=== PATIENT | male | born 1950 | race Caucasian/White ===

== ENCOUNTER 2020-07-14 18:24 | Inpatient (IN) | payer MEDICARE, SELFPAY ==
[2020-07-14 18:35] VITALS: BP 154/89; PULSE 97; RESP 18; TEMP 36.6; O2SAT 97; BMI 28.5
[2020-07-14 19:24] VITALS: BP 132/82; PULSE 92; RESP 16; TEMP 37.4; O2SAT 97
--- NOTE | 2020-07-14 19:25 | ED.ABDPAIN ---
HPI - Abdominal Pain General Chief Complaint: Abdominal Pain Stated Complaint: abd pain Time Seen by Provider: 07/14/20 22:11 Source: patient Mode of arrival: ambulatory Limitations: no limitations History of Present Illness HPI narrative: 60-year-old male with past medical history of AFib presents with 1 day of diffuse abdominal pain, nausea, dry heaving, inability to pass flatus or stools. He is diffusely tender and in moderate distress. He is doing his best to answer questions and answering in short polite answers. He does report chills, but denies chest pain pressure palpitations, edema, lightheadedness, weakness. MD elicited complaint: abdominal pain and flank pain Pertinent past history: none Onset (ago): day(s) (1) Pain Consistency: constant Location: diffuse Severity: severe Pain scale (0-10): 10 Quality: aching and fullness Radiation: L flank and R flank Exacerbating factors: eating, vomiting and movement Relieving factors: nothing Associated symptoms: nausea, vomiting, chills and constipation Related Data Home Medications Medication Instructions Recorded Confirmed diltiazem HCl [Cartia XT] 120 mg PO 07/14/20 flecainide 50 mg PO 07/14/20 Allergies Allergy/AdvReac Type Severity Reaction Status Date / Time No Known Allergies Allergy Unverified 05/01/20 17:32 [No Known Allergies*] Review of Systems Review of Systems Constitutional: No Weight loss, positive Fever, positive Chills, No Night Sweats, positive Fatigue, No Malaise ENT/Mouth: No Hearing loss, No Ear Pain, No Nasal Congestion, No Sinus Pain, No Hoarseness, No sore throat, No Rhinorrhea, No Swallowing Difficulty Eyes: No Eye Pain, No Swelling, No Redness, No Foreign Body, No Discharge, No Vision Changes Cardiovascular: No Chest Pain, No SOB, No Dyspnea on Exertion, No Orthopnea, No Edema, No Palpitations Respiratory: No Cough, No Sputum, No Wheezing, No Smoke Exposure, No Dyspnea Gastrointestinal: Positive Nausea, Positive Vomiting, no Diarrhea, positive abdominal Pain, No Hematochezia, No Melena Genitourinary: no irregular bleeding, No Dysuria, No Urinary Frequency, No Hematuria, No Urinary Incontinence, No Urgency, No Flank Pain, No Urinary Flow Changes, No Hesitancy Musculoskeletal: No joint pain, No Myalgias, No Joint Swelling Skin: No Skin Lesions, No rash Neuro: No Weakness, No Numbness, No Paresthesias, No Loss of Consciousness, No Dizziness, No Headache Psych: No Anxiety/Panic, No Depression, No SI/HI/AH/VH, No Social Issues Heme/Lymph: No Bruising, No Bleeding,No Lymphadenopathy Endocrine: No Polyuria, No Polydipsia, No Temperature Intolerance Yes all other systems are reviewed and are negative Physical Exam Vital Signs: Vital Signs: Last Vital Signs Temp 98.3 F 07/14/20 21:05 Pulse 105 H 07/15/20 00:05 Resp 16 07/15/20 00:05 BP 86/53 L 07/15/20 00:05 Pulse Ox 92 07/15/20 00:05 Body Mass Index 28.5 Appearance: Alert. Oriented X3. moderate distress. Head: Normal external exam. Normocephalic. Atraumatic. No Neely signs noted. No raccoon eyes noted Eyes: PERRLA. EOMI. Conjunctiva and sclera normal. Eyelids normal. ENT: TM's Normal. Pharynx normal. Uvula midline. Moist mucous membranes. No trismus noted. No drooling noted. No muffled voice noted. Neck: Normal inspection. Neck supple. No adenopathy. Thyroid Normal. No meningeal signs. No neck mass noted. CVS: Normal heart rate and rhythm. Heart sound normal. No murmurs noted. Pulses equal to all extremities. Respiratory: No respiratory distress. Painless inspiration. Breath sounds normal. No wheezes/rales/rhonchi noted. Chest nontender. No accessory muscle usage noted or decreased air movement noted. Abdomen: Soft and diffusely tender with guarding and rebound. Bowel sounds normal in all 4 quadrants. No distention noted. No visible injury noted. Back: positive bilateral CVA tenderness. Full range of motion noted. Skin: Skin warm and dry. Normal skin color. Normal skin turgor. No rashes/lesions/lacerations noted. Extremities: No lower extremity edema. Extremities exhibit normal range of motion. Extremities nontender. Neuro: cranial nerves 2-12 intact, no focal neural deficits, strength 5/5 to all extremities, No motor deficit. No sensory deficit. Reflexes normal. Course Course Course Narrative: 70-year-old male with past medical history of AFib on diltiazem and flecainide presents with 1 day of abdominal pain and dry heaving. On presentation his skin is warm to touch, temp at bedside is 100, tachycardic at 97. We will initiate sepsis protocol, his abdominal exam is highly suspicious for diverticulitis or acute abdomen, he does have bilateral CVA tenderness. we did start Zosyn. White count 15, Lactic acid 1.9, troponin 6.5, CT scan positive for hydronephrosis, obstructing 3 mm stone at the left UVJ. Discussion with Dr. Jeffries at 10:14 p.m.. Plan is to admit to hospitalist and Dr Jeffries will see him in the morning. Discussion with Dr. Bandar Aly, patient will be admitted with UTI, hydronephrosis, and sepsis. MDM - Abdominal Pain Differential Diagnosis Differential diagnosis: Likely abdominal pain, aortic dissection, acute appendicitis, bowel perforation, calculus of kidney, diverticulitis, mesenteric ischemia and small bowel obstruction Medical Records Attestation: I reviewed the patient's medical records. Lab Data Attestation: I reviewed the patient's lab results. Result diagrams: 07/14/20 19:49 Labs: Lab Results 07/14/20 07/14/20 07/14/20 Range/Units 19:48 19:48 19:49 WBC 15.2 H (4.8-10.8) X10*3/uL RBC 4.54 L (4.60-5.80) X10*6/uL Hgb 14.3 (14.0-18.0) g/dl Hct 41.9 L (42-52) % MCV 92.3 (80-98) fL MCH 31.5 (27.0-33.0) pg MCHC 34.1 (31.0-36.0) g/dl RDW 14.6 (11.0-16.0) % Plt Count 277 (160-400) X10*3/uL MPV 9.8 (9.4-12.4) fL Immature Gran % (Auto) 0.3 (0.0-0.4) % Neut % (Auto) 90.4 H (45-73) % Lymph % (Auto) 6.2 L (20-40) % [place] % (Auto) 3.0 (2-11) % Eos % (Auto) 0.0 (0-4) % Baso % (Auto) 0.1 (0-2) % Lymph # (Auto) 0.9 L (1.2-4.9) X10*3/uL [place] # (Auto) 0.5 (0.1-1.2) X10*3/uL Eos # (Auto) 0.0 (0.0-0.4) X10*3/uL Baso # (Auto) 0.0 (0.0-0.2) X10*3/uL Abs Immat Gran (auto) 0.05 H (0.00-0.03) X10*3/uL Absolute Neuts (auto) 13.7 H (2.0-8.3) X10*3/uL Absolute Nucleated RBC 0.000 (0.0-0.012) X10*3/uL Nucleated RBC % (auto) 0.0 (0.0-0.2) /100WBC Smear Tech's Comments VERIFIED PT (10.8-13.0) SEC INR (0.9-1.1) APTT (24.1-38.0) SEC Lactic Acid 1.9 (0.5-2.0) mmol/L Magnesium (1.6-2.6) mg/dL Total Bilirubin (0.0-1.0) mg/dL Direct Bilirubin (0.0-0.5) mg/dL AST (5-37) U/L ALT (0-40) U/L Alkaline Phosphatase (39-117) U/L Troponin I High Sens (<3.5-35.0) ng/L Total Protein (6.5-8.0) g/dL Albumin (3.5-5.0) g/dL Lipase (8-78) U/L Coronavirus (PCR) NEGATIVE (Negative) Influenza Type A (PCR) NEGATIVE (Negative) Influenza Type B (PCR) NEGATIVE (Negative) RSV RNA Qual (PCR) NEGATIVE (Negative) 07/14/20 07/14/20 07/14/20 Range/Units 19:49 19:49 19:50 WBC (4.8-10.8) X10*3/uL RBC (4.60-5.80) X10*6/uL Hgb (14.0-18.0) g/dl Hct (42-52) % MCV (80-98) fL MCH (27.0-33.0) pg MCHC (31.0-36.0) g/dl RDW (11.0-16.0) % Plt Count (160-400) X10*3/uL MPV (9.4-12.4) fL Immature Gran % (Auto) (0.0-0.4) % Neut % (Auto) (45-73) % Lymph % (Auto) (20-40) % [place] % (Auto) (2-11) % Eos % (Auto) (0-4) % Baso % (Auto) (0-2) % Lymph # (Auto) (1.2-4.9) X10*3/uL [place] # (Auto) (0.1-1.2) X10*3/uL Eos # (Auto) (0.0-0.4) X10*3/uL Baso # (Auto) (0.0-0.2) X10*3/uL Abs Immat Gran (auto) (0.00-0.03) X10*3/uL Absolute Neuts (auto) (2.0-8.3) X10*3/uL Absolute Nucleated RBC (0.0-0.012) X10*3/uL Nucleated RBC % (auto) (0.0-0.2) /100WBC Smear Tech's Comments PT 14.3 H (10.8-13.0) SEC INR 1.2 H (0.9-1.1) APTT 34.5 (24.1-38.0) SEC Lactic Acid (0.5-2.0) mmol/L Magnesium 1.7 (1.6-2.6) mg/dL Total Bilirubin (0.0-1.0) mg/dL Direct Bilirubin (0.0-0.5) mg/dL AST (5-37) U/L ALT (0-40) U/L Alkaline Phosphatase (39-117) U/L Troponin I High Sens 6.5 (<3.5-35.0) ng/L Total Protein (6.5-8.0) g/dL Albumin (3.5-5.0) g/dL Lipase 19 (8-78) U/L Coronavirus (PCR) (Negative) Influenza Type A (PCR) (Negative) Influenza Type B (PCR) (Negative) RSV RNA Qual (PCR) (Negative) 07/14/20 Range/Units 19:56 WBC (4.8-10.8) X10*3/uL RBC (4.60-5.80) X10*6/uL Hgb (14.0-18.0) g/dl Hct (42-52) % MCV (80-98) fL MCH (27.0-33.0) pg MCHC (31.0-36.0) g/dl RDW (11.0-16.0) % Plt Count (160-400) X10*3/uL MPV (9.4-12.4) fL Immature Gran % (Auto) (0.0-0.4) % Neut % (Auto) (45-73) % Lymph % (Auto) (20-40) % [place] % (Auto) (2-11) % Eos % (Auto) (0-4) % Baso % (Auto) (0-2) % Lymph # (Auto) (1.2-4.9) X10*3/uL [place] # (Auto) (0.1-1.2) X10*3/uL Eos # (Auto) (0.0-0.4) X10*3/uL Baso # (Auto) (0.0-0.2) X10*3/uL Abs Immat Gran (auto) (0.00-0.03) X10*3/uL Absolute Neuts (auto) (2.0-8.3) X10*3/uL Absolute Nucleated RBC (0.0-0.012) X10*3/uL Nucleated RBC % (auto) (0.0-0.2) /100WBC Smear Tech's Comments PT (10.8-13.0) SEC INR (0.9-1.1) APTT (24.1-38.0) SEC Lactic Acid (0.5-2.0) mmol/L Magnesium (1.6-2.6) mg/dL Total Bilirubin 0.7 (0.0-1.0) mg/dL Direct Bilirubin 0.3 (0.0-0.5) mg/dL AST 34 (5-37) U/L ALT 37 (0-40) U/L Alkaline Phosphatase 94 (39-117) U/L Troponin I High Sens (<3.5-35.0) ng/L Total Protein 7.3 (6.5-8.0) g/dL Albumin 4.2 (3.5-5.0) g/dL Lipase (8-78) U/L Coronavirus (PCR) (Negative) Influenza Type A (PCR) (Negative) Influenza Type B (PCR) (Negative) RSV RNA Qual (PCR) (Negative) Imaging Data CT scan - abdomen: Attestation: I personally reviewed and interpreted this imaging study as follows: Radiologist's impression: CT CHEST: Lungs: No acute infiltrate. No interstitial lung disease or bronchiectasis. Linear scar right at lung base. Lung Nodules: 1. There is a 4 mm smooth-bordered nodule in the left lower lobe, axial image 42 series 6. 2. A 3 mm smooth-bordered nodule subpleural lung left lower lobe, axial image 40 series 6. 3. There is a 3 mm smooth-bordered nodule right upper lobe, axial image 14 series 6. Mediastinum: The mediastinum is normal. Pleura: There is no pleural effusion. No pleural mass or thickening. Axilla: No lymphadenopathy. There are surgical clips in the right axilla. CT ABDOMEN AND PELVIS: Liver, Gallbladder and Biliary Tree: There are several hypodense lesions in the liver. 1. Left lobe of liver segment 2/3, 8 mm hypodensity, image 21 series 11. This has vague margins. 2. Left lobe of liver segment 3, there is a 7 mm hypodensity, axial image 23 series 11. This has vague margins. 3. Segment 8 right lobe of liver sharply marginated hypodensity measuring 7 mm likely hepatic cyst. The gallbladder is unremarkable with no evidence of radiopaque gallstones, gallbladder wall thickening, or obvious pericholecystic inflammatory changes. Pancreas: No acute change of the pancreas. No mass. No pancreatic duct dilatation. Spleen: Spleen normal in size and contour. No focal lesion. Adrenal Glands: Adrenal glands are normal in size. No focal mass. Kidneys and Ureters: Right Kidney: There is a 2 mm non-obstructive stone in the lower pole of the right kidney. Left Kidney: No stone in the left kidney. There is moderate hydronephrosis of the left kidney with edema around the renal pelvis and the ureter. There is dilated left ureter to the ureterovesical junction. There is an obstructing stone at the left UVJ measuring 3 mm, axial image 86 series 11. Bladder: Unremarkable. Gastrointestinal Tract: There are scattered diverticula of the colon. Most of the diverticula involve the sigmoid colon. There is no diverticulitis. There is no bowel wall thickening /edema. There is no bowel obstruction. There is a moderate volume of stool in the colon. The appendix is normal. The small bowel loops are unremarkable. The stomach is normal. There is no hiatal hernia. Mesentery: No focal inflammation. No free fluid. No free air. Abdominal Wall: Small bilateral fat-containing inguinal hernias. Lymph Nodes: Normal. Vascular: Scattered vascular wall calcifications throughout the abdomen and the pelvis. There is no aneurysm of the aorta. Pelvic Viscera: Prostate measures 6 cm transverse. Osseous Structures: There is wjup-gw-[id number] joint narrowing of the hip joints bilateral. CT/CT abdomen pelvis wo con IMPRESSION: 1. There is moderate hydronephrosis of the left kidney due to an obstructing 3 mm stone at the left ureterovesical junction. 2. A 2 mm non-obstructive stone in the right kidney. 3. Diverticulosis of colon without acute change of bowel. 4. Small hypodensities in the liver. These are indeterminate on noncontrast CAT scan. Largest measures 8 mm. In a patient without history of malignancy, no further assessment would be recommended for hepatic lesions of this size. 5. Three small smooth-bordered nodules in the lungs at the lung bases bilateral, largest measuring 4 mm. Various management parameters for solitary pulmonary nodules are in the literature. According to the UPDATED 2017 Fleischner Society recommendations, the advised follow up imaging for solid nodules < 6 mm is: LOW RISK PATIENT: No routine follow up. HIGH RISK PATIENT: Optional CT at 12 months. Reference: Guidelines for Management of Incidental Pulmonary Nodules Detected on CT Images: From the Fleischner Society 2017. CT scan - chest: Attestation: I personally reviewed and interpreted this imaging study as follows: Radiologist's impression: CT CHEST: Lungs: No acute infiltrate. No interstitial lung disease or bronchiectasis. Linear scar right at lung base. Lung Nodules: 1. There is a 4 mm smooth-bordered nodule in the left lower lobe, axial image 42 series 6. 2. A 3 mm smooth-bordered nodule subpleural lung left lower lobe, axial image 40 series 6. 3. There is a 3 mm smooth-bordered nodule right upper lobe, axial image 14 series 6. Mediastinum: The mediastinum is normal. Pleura: There is no pleural effusion. No pleural mass or thickening. Axilla: No lymphadenopathy. There are surgical clips in the right axilla. CT ABDOMEN AND PELVIS: Liver, Gallbladder and Biliary Tree: There are several hypodense lesions in the liver. 1. Left lobe of liver segment 2/3, 8 mm hypodensity, image 21 series 11. This has vague margins. 2. Left lobe of liver segment 3, there is a 7 mm hypodensity, axial image 23 series 11. This has vague margins. 3. Segment 8 right lobe of liver sharply marginated hypodensity measuring 7 mm likely hepatic cyst. The gallbladder is unremarkable with no evidence of radiopaque gallstones, gallbladder wall thickening, or obvious pericholecystic inflammatory changes. Pancreas: No acute change of the pancreas. No mass. No pancreatic duct dilatation. Spleen: Spleen normal in size and contour. No focal lesion. Adrenal Glands: Adrenal glands are normal in size. No focal mass. Kidneys and Ureters: Right Kidney: There is a 2 mm non-obstructive stone in the lower pole of the right kidney. Left Kidney: No stone in the left kidney. There is moderate hydronephrosis of the left kidney with edema around the renal pelvis and the ureter. There is dilated left ureter to the ureterovesical junction. There is an obstructing stone at the left UVJ measuring 3 mm, axial image 86 series 11. Bladder: Unremarkable. Gastrointestinal Tract: There are scattered diverticula of the colon. Most of the diverticula involve the sigmoid colon. There is no diverticulitis. There is no bowel wall thickening /edema. There is no bowel obstruction. There is a moderate volume of stool in the colon. The appendix is normal. The small bowel loops are unremarkable. The stomach is normal. There is no hiatal hernia. Mesentery: No focal inflammation. No free fluid. No free air. Abdominal Wall: Small bilateral fat-containing inguinal hernias. Lymph Nodes: Normal. Vascular: Scattered vascular wall calcifications throughout the abdomen and the pelvis. There is no aneurysm of the aorta. Pelvic Viscera: Prostate measures 6 cm transverse. Osseous Structures: There is tafk-zx-picayncx joint narrowing of the hip joints bilateral. CT/CT abdomen pelvis wo con IMPRESSION: 1. There is moderate hydronephrosis of the left kidney due to an obstructing 3 mm stone at the left ureterovesical junction. 2. A 2 mm non-obstructive stone in the right kidney. 3. Diverticulosis of colon without acute change of bowel. 4. Small hypodensities in the liver. These are indeterminate on noncontrast CAT scan. Largest measures 8 mm. In a patient without history of malignancy, no further assessment would be recommended for hepatic lesions of this size. 5. Three small smooth-bordered nodules in the lungs at the lung bases bilateral, largest measuring 4 mm. Various management parameters for solitary pulmonary nodules are in the literature. According to the UPDATED 2017 Fleischner Society recommendations, the advised follow up imaging for solid nodules < 6 mm is: LOW RISK PATIENT: No routine follow up. HIGH RISK PATIENT: Optional CT at 12 months. Reference: Guidelines for Management of Incidental Pulmonary Nodules Detected on CT Images: From the Fleischner Society 2017. ECG Data Attestation: I personally reviewed and interpreted this ECG as follows: ECG interpretation date: 07/14/20 ECG interpretation time: 20:13 Interpretation: Vent. rate 109 BPM TN interval 180 ms QRS duration 130 ms QT/QTc 356/479 ms P-R-T axes 41 -19 5 Sinus tachycardia Right bundle branch block Abnormal ECG When compared with ECG of 09-MAY-2015 13:32, Right bundle branch block is now Present Critical Care Time Critical Care Time Critical Care Time: Yes Total Critical Care Time: 65 Attestation: I have personally provided critical care time exclusive of time spent on separately billable procedures. Time includes review of laboratory data, radiology results, discussion with consultants, and monitoring for potential decompensation. Interventions were performed as documented. Discharge Plan Discharge Clinical Impression: Calculus, renal, Acute UTI Hydronephrosis Qualifiers: Hydronephrosis type: unspecified Qualified Code(s): N13.30 - Unspecified hydronephrosis Sepsis Qualifiers: Sepsis type: sepsis due to unspecified organism Sepsis acute organ dysfunction status: unspecified Qualified Code(s): A41.9 - Sepsis, unspecified organism Patient Disposition: Admitted As Inpatient [facility] Past Medical History Attestation statement: The following information was validated with the patient. Social History Social History Smoked in Last 30 Days: No Use of substances other than those prescribed or required for medical reasons: No Any prior treatment program specific to substance use: No Advance Directives: No Advance Directives Information Provided: Yes
--- NOTE | 2020-07-14 19:26 | PC.NURSE ---
LOWER DIFFUSE ABD PAIN RADIATING TO L FLANK, DRY HEAVING ALL DAY. MOIST MM. ABD SOFT NONTENDER. UNLABORED RESP.
--- NOTE | 2020-07-14 19:31 | ECG_ITS ---
Test Reason : ABDOMINAL PAIN Blood Pressure : / mmHG Vent. Rate : 109 BPM Atrial Rate : 109 BPM P-R Int : 180 ms QRS Dur : 130 ms QT Int : 356 ms P-R-T Axes : 041 -19 005 degrees QTc Int : 479 ms Sinus tachycardia Right bundle branch block Abnormal ECG When compared with ECG of 09-MAY-2015 13:32, Right bundle branch block is now Present Referred By: Halle Teran Electronically Signed By:MICHAEL SABILLON MD
--- NOTE | 2020-07-14 19:31 | CT_ITS ---
EXAMINATION: CT CHEST, ABDOMEN AND PELVIS WITH CONTRAST CLINICAL INFORMATION: Back pain. Left shoulder pain. Abdominal pain. Unable to pass flatus. Concern for small bowel obstruction. COMPARISON: Chest x-ray 07/20/2011. TECHNIQUE: Multidetector volumetric CT imaging of the chest, abdomen and pelvis was obtained after the administration of 50 mL of intravenous Ultravist without immediate adverse reactions. [This CT examination was performed using dose optimization techniques as appropriate, variously including the following: *Automated exposure control. *Adjustment of mA and/or kV according to patient size (this includes techniques or standardized protocols for targeted exams where dose is matched to indication/reason for exam; i.e. extremities or head). *Use of iterative reconstruction technique]. DLP: 1014 mGy-cm FINDINGS: CT CHEST: Lungs: No acute infiltrate. No interstitial lung disease or bronchiectasis. Linear scar right at lung base. Lung Nodules: 1. There is a 4 mm smooth-bordered nodule in the left lower lobe, axial image 42 series 6. 2. A 3 mm smooth-bordered nodule subpleural lung left lower lobe, axial image 40 series 6. 3. There is a 3 mm smooth-bordered nodule right upper lobe, axial image 14 series 6. Mediastinum: The mediastinum is normal. Pleura: There is no pleural effusion. No pleural mass or thickening. Axilla: No lymphadenopathy. There are surgical clips in the right axilla. CT ABDOMEN AND PELVIS: Liver, Gallbladder and Biliary Tree: There are several hypodense lesions in the liver. 1. Left lobe of liver segment 2/3, 8 mm hypodensity, image 21 series 11. This has vague margins. 2. Left lobe of liver segment 3, there is a 7 mm hypodensity, axial image 23 series 11. This has vague margins. 3. Segment 8 right lobe of liver sharply marginated hypodensity measuring 7 mm likely hepatic cyst. The gallbladder is unremarkable with no evidence of radiopaque gallstones, gallbladder wall thickening, or obvious pericholecystic inflammatory changes. Pancreas: No acute change of the pancreas. No mass. No pancreatic duct dilatation. Spleen: Spleen normal in size and contour. No focal lesion. Adrenal Glands: Adrenal glands are normal in size. No focal mass. Kidneys and Ureters: Right Kidney: There is a 2 mm non-obstructive stone in the lower pole of the right kidney. Left Kidney: No stone in the left kidney. There is moderate hydronephrosis of the left kidney with edema around the renal pelvis and the ureter. There is dilated left ureter to the ureterovesical junction. There is an obstructing stone at the left UVJ measuring 3 mm, axial image 86 series 11. Bladder: Unremarkable. Gastrointestinal Tract: There are scattered diverticula of the colon. Most of the diverticula involve the sigmoid colon. There is no diverticulitis. There is no bowel wall thickening /edema. There is no bowel obstruction. There is a moderate volume of stool in the colon. The appendix is normal. The small bowel loops are unremarkable. The stomach is normal. There is no hiatal hernia. Mesentery: No focal inflammation. No free fluid. No free air. Abdominal Wall: Small bilateral fat-containing inguinal hernias. Lymph Nodes: Normal. Vascular: Scattered vascular wall calcifications throughout the abdomen and the pelvis. There is no aneurysm of the aorta. Pelvic Viscera: Prostate measures 6 cm transverse. Osseous Structures: There is ajnj-sr-wqatarto joint narrowing of the hip joints bilateral. CT/CT abdomen pelvis wo con IMPRESSION: 1. There is moderate hydronephrosis of the left kidney due to an obstructing 3 mm stone at the left ureterovesical junction. 2. A 2 mm non-obstructive stone in the right kidney. 3. Diverticulosis of colon without acute change of bowel. 4. Small hypodensities in the liver. These are indeterminate on noncontrast CAT scan. Largest measures 8 mm. In a patient without history of malignancy, no further assessment would be recommended for hepatic lesions of this size. 5. Three small smooth-bordered nodules in the lungs at the lung bases bilateral, largest measuring 4 mm. Various management parameters for solitary pulmonary nodules are in the literature. According to the UPDATED 2017 Fleischner Society recommendations, the advised follow up imaging for solid nodules < 6 mm is: LOW RISK PATIENT: No routine follow up. HIGH RISK PATIENT: Optional CT at 12 months. Reference: Guidelines for Management of Incidental Pulmonary Nodules Detected on CT Images: From the Fleischner Society 2017.
[2020-07-14 19:37] VITALS: TEMP 37.7
[2020-07-14] MEDS: 0.9 % Sodium Chloride 1,000 ML 999 ML IVCONT ×2 (19:58→20:54)
[2020-07-14] MEDS: Acetaminophen 325 MG TABLET 975 MG PO (19:59)
[2020-07-14] MEDS: ondansetron HCL 4 MG/2 ML VIAL IVPUSH (20:00)
[2020-07-14] MEDS: Morphine Sulfate 4 MG/ML CARTRIDGE IVPUSH (20:03)
[2020-07-14 20:10] LABS: Basophils Percent Auto 0.1 % (0-2); Hematocrit 41.9 % (42-52); Hemoglobin 14.3 g/dl (14.0-18.0); Imm Gran Abs Auto 0.05 X10*3/uL (0.00-0.03); Imm Gran Pct Auto 0.3 % (0.0-0.4); Lymphocytes Absolute Auto 0.9 X10*3/uL (1.2-4.9); Lymphocytes Percent Auto 6.2 % (20-40); MANUAL DIFF FLAG SCAN; Mean Corpuscular HGB Conc 34.1 g/dl (31.0-36.0); Mean Corpuscular Hemoglobin 31.5 pg (27.0-33.0); Mean Corpuscular Volume 92.3 fL (80-98); Mean Platelet Volume 9.8 fL (9.4-12.4); Monocytes Absolute Auto 0.5 X10*3/uL (0.1-1.2); Neutrophils Absolute Auto 13.7 X10*3/uL (2.0-8.3); Neutrophils Percent Auto 90.4 % (45-73); Platelet Count 277 X10*3/uL (160-400); Red Blood Count 4.54 X10*6/uL (4.60-5.80); Red Cell Distribution Width 14.6 % (11.0-16.0); SCAN SMEAR FLAG 1; White Blood Count 15.2 X10*3/uL (4.8-10.8)
[2020-07-14 20:24] LABS: INTERNATIONAL NORM RATIO 1.2 (0.9-1.1); Prothrombin Time 14.3 SEC (10.8-13.0)
[2020-07-14 20:26] LABS: Partial Thromboplastin Time 34.5 SEC (24.1-38.0)
[2020-07-14 20:34] LABS: SLIDE REVIEW VERIFIED
[2020-07-14 20:35] LABS: Lactic Acid 1.9 mmol/L (0.5-2.0)
[2020-07-14 20:40] LABS: Alanine Aminotransferase 37 U/L (0-40); Albumin Level 4.2 g/dL (3.5-5.0); Alkaline Phosphatase 94 U/L (39-117); Aspartate Amino Transferase 34 U/L (5-37); Bilirubin Direct 0.3 mg/dL (0.0-0.5); Bilirubin Total 0.7 mg/dL (0.0-1.0); Total Protein 7.3 g/dL (6.5-8.0)
[2020-07-14 20:41] LABS: Lipase 19 U/L (8-78); Magnesium 1.7 mg/dL (1.6-2.6)
[2020-07-14 20:56] LABS: Influenza A PCR NEGATIVE (Negative); Influenza B PCR NEGATIVE (Negative); Resp Syncy Virus RNA Qual PCR NEGATIVE (Negative); SARS COV2 PCR INHOUSE NEGATIVE (Negative)
[2020-07-14 21:01] LABS: Troponin-I High Sensitivity 6.5 ng/L (<3.5-35.0)
[2020-07-14 21:05] VITALS: BP 134/81; PULSE 97; RESP 18; TEMP 36.8; O2SAT 96
[2020-07-14] MEDS: cefTRIAXone sodium 1 GM in 0.9 % Sodium Chloride 50 ML IV (21:05)
[2020-07-14] MEDS: metroNIDAZOLE/NS 500 MG/100 ML PIGGYBACK 100 MG IV (21:33)
[2020-07-14 22:26] VITALS: RESP 18
[2020-07-14] MEDS: HYDROmorphone HCl 1 MG/ML SYRINGE IVPUSH (22:26)
[2020-07-14] MEDS: predniSONE 20 MG TABLET PO (22:26)
[2020-07-14] MEDS: Tamsulosin HCL 0.4 MG CAPSULE PO (22:26)
--- NOTE | 2020-07-14 22:27 | PC.NURSE ---
iv antibiotic finished. fluids still running. pt vitals wnl. pain persists. medicated per emar. plan for admission. pt agreeable. pt has not urinated and does not have urge. urinal at bedside and call light within reach
[2020-07-14 22:29] VITALS: BP 119/76; PULSE 99; RESP 18; O2SAT 99
--- NOTE | 2020-07-14 23:49 | PC.NURSE ---
patient has an order for a livingston catheter. Patient is refusing catheter placement
[2020-07-15] VITALS (8 sets, daily range): BP systolic 86–131; BP diastolic 53–77; PULSE 85–105; RESP 16–18; TEMP 36.2–37.1; O2SAT 91–97
--- NOTE | 2020-07-15 01:37 | P.HPHOSP_ITS ---
History of Present Illness Date of Service: 07/15/20 Chief Complaint: Abdominal pain 70 y/o male with PMHx of afib who presented from home due to abdominal pain. Per history provided by the patient, for the past 1 day has been having a pressure like pain, diffusely, 8/10 in intensity, associated with nausea and vomiting. Denies any episode of fever, chest pain, SOB, diarrhea or constipation. On presentation to the ED patient was noted to be hypotensive 86/53 mmHg and HR of 105, WBC of 15.2, lactate normal, CT abdomen positive for left obstructing stone of 3 mm in the ureterovesical junction, right nonobstructing ureteral stone of 2 mm, solitary lung nodules. One dose of Rocephin as well as 3 liters of NS given per ED. BP now 100/[address] Jeffries contacted per ED who states will follow up in the am and recommends for patient to be admitted under medicine. Decision for admission given;. Patient seen and examined at the bedside, laying down in bed in no acute distress. Mild tenderness of abdomen on palpation without evidence of any masses or rebound tenderness. ROS as above otherwise negative. PMHX: Afib PSx: Inguinal hernia repair Toxic habits: No hx of alcohol abuse, smoking or IVDA Review of Systems Gastrointestinal: Gastrointestinal: Reports abdominal pain, Reports nausea and Reports vomiting PMFSH Functional capacity: independent ambulation Family history: reviewed and not pertinent Social History Smoked in Last 30 Days: No Use of substances other than those prescribed or required for medical reasons: No Any prior treatment program specific to substance use: No Advance Directives: No Advance Directives Information Provided: Yes Meds Allergies Allergy/AdvReac Type Severity Reaction Status Date / Time No Known Allergies Allergy Unverified 05/01/20 17:32 [No Known Allergies*] Home Medications Medication Instructions Recorded Confirmed Type diltiazem HCl [Cartia XT] 120 mg PO DAILY 07/14/20 07/15/20 History flecainide 50 mg PO DAILY 07/14/20 07/15/20 History propranolol 80 mg PO NEEDED PRN 07/15/20 07/15/20 History Physical Exam Vital Signs and Narrative: Vital Signs: Last Vital Signs Temp 98.3 F 07/14/20 21:05 Pulse 105 H 07/15/20 00:05 Resp 16 07/15/20 00:05 BP 86/53 L 07/15/20 00:05 Pulse Ox 92 07/15/20 00:05 Body Mass Index 28.5 Const: General: cooperative, comfortable and no acute distress Or ientation/consciousness: oriented to person, oriented to place and oriented to time HENMT: Head: Yes normal to inspection Eyes: General: appearance normal, both eyes and all related structures Neck: Yes normal visual inspection Chest: Chest palpation & inspection: normal inspection of the chest Resp: Effort & Inspection: normal respiratory effort Auscultation: clear to auscultation bilaterally Cardio: Jugular venous distension: no JVD Rate: regular rate Heart sounds: S1 normal heart sound present and S2 normal heart sound present Skin: General skin exam: no rashes or lesions noted Neuro: General: oriented to person, oriented to place and oriented to time Cognition (Neuro): normal cognition Results Labs CBC and Chem 7: 07/14/20 19:49 Labs: Laboratory Results - last 24 hr 07/14/20 07/14/20 07/14/20 19:48 19:48 19:49 MCV 92.3 MCH 31.5 MCHC 34.1 RDW 14.6 Plt Count 277 MPV 9.8 Immature Gran % (Auto) 0.3 Neut % (Auto) 90.4 H Lymph % (Auto) 6.2 L [place] % (Auto) 3.0 Eos % (Auto) 0.0 Baso % (Auto) 0.1 Lymph # (Auto) 0.9 L [place] # (Auto) 0.5 Eos # (Auto) 0.0 Baso # (Auto) 0.0 Abs Immat Gran (auto) 0.05 H Absolute Neuts (auto) 13.7 H Absolute Nucleated RBC 0.000 Nucleated RBC % (auto) 0.0 Smear Tech's Comments VERIFIED PT INR APTT Lactic Acid 1.9 Magnesium Total Bilirubin Direct Bilirubin AST ALT Alkaline Phosphatase Troponin I High Sens Total Protein Albumin Lipase Coronavirus (PCR) NEGATIVE Influenza Type A (PCR) NEGATIVE Influenza Type B (PCR) NEGATIVE RSV RNA Qual (PCR) NEGATIVE 07/14/20 07/14/20 07/14/20 19:49 19:49 19:50 MCV MCH MCHC RDW Plt Count MPV Immature Gran % (Auto) Neut % (Auto) Lymph % (Auto) [place] % (Auto) Eos % (Auto) Baso % (Auto) Lymph # (Auto) [place] # (Auto) Eos # (Auto) Baso # (Auto) Abs Immat Gran (auto) Absolute Neuts (auto) Absolute Nucleated RBC Nucleated RBC % (auto) Smear Tech's Comments PT 14.3 H INR 1.2 H APTT 34.5 Lactic Acid Magnesium 1.7 Total Bilirubin Direct Bilirubin AST ALT Alkaline Phosphatase Troponin I High Sens 6.5 Total Protein Albumin Lipase 19 Coronavirus (PCR) Influenza Type A (PCR) Influenza Type B (PCR) RSV RNA Qual (PCR) 07/14/20 19:56 MCV MCH MCHC RDW Plt Count MPV Immature Gran % (Auto) Neut % (Auto) Lymph % (Auto) [place] % (Auto) Eos % (Auto) Baso % (Auto) Lymph # (Auto) [place] # (Auto) Eos # (Auto) Baso # (Auto) Abs Immat Gran (auto) Absolute Neuts (auto) Absolute Nucleated RBC Nucleated RBC % (auto) Smear Tech's Comments PT INR APTT Lactic Acid Magnesium Total Bilirubin 0.7 Direct Bilirubin 0.3 AST 34 ALT 37 Alkaline Phosphatase 94 Troponin I High Sens Total Protein 7.3 Albumin 4.2 Lipase Coronavirus (PCR) Influenza Type A (PCR) Influenza Type B (PCR) RSV RNA Qual (PCR) Imaging Radiologist's Impressions: Impressions Abdomen/Pelvis CT 07/14/20 19:31 IMPRESSION: 1. There is moderate hydronephrosis of the left kidney due to an obstructing 3 mm stone at the left ureterovesical junction. 2. A 2 mm non-obstructive stone in the right kidney. 3. Diverticulosis of colon without acute change of bowel. 4. Small hypodensities in the liver. These are indeterminate on noncontrast CAT scan. Largest measures 8 mm. In a patient without history of malignancy, no further assessment would be recommended for hepatic lesions of this size. 5. Three small smooth-bordered nodules in the lungs at the lung bases bilateral, largest measuring 4 mm. Various management parameters for solitary pulmonary nodules are in the literature. According to the UPDATED 2017 Fleischner Society recommendations, the advised follow up imaging for solid nodules < 6 mm is: LOW RISK PATIENT: No routine follow up. HIGH RISK PATIENT: Optional CT at 12 months. Reference: Guidelines for Management of Incidental Pulmonary Nodules Detected on CT Images: From the Fleischner Society 2017. Chest CT 07/14/20 19:32 IMPRESSION: 1. There is moderate hydronephrosis of the left kidney due to an obstructing 3 mm stone at the left ureterovesical junction. 2. A 2 mm non-obstructive stone in the right kidney. 3. Diverticulosis of colon without acute change of bowel. 4. Small hypodensities in the liver. These are indeterminate on noncontrast CAT scan. Largest measures 8 mm. In a patient without history of malignancy, no further assessment would be recommended for hepatic lesions of this size. 5. Three small smooth-bordered nodules in the lungs at the lung bases bilateral, largest measuring 4 mm. Various management parameters for solitary pulmonary nodules are in the literature. According to the UPDATED 2017 Fleischner Society recommendations, the advised follow up imaging for solid nodules < 6 mm is: LOW RISK PATIENT: No routine follow up. HIGH RISK PATIENT: Optional CT at 12 months. Reference: Guidelines for Management of Incidental Pulmonary Nodules Detected on CT Images: From the Fleischner Society 2017. Assessment and Plan (1) Sepsis: Qualifiers: Sepsis acute organ dysfunction status: unspecified Sepsis type: sepsis due to unspecified organism Qualified Code(s): A41.9 - Sepsis, unspecified organism Status: Acute Keep MAP >65 mmHg Continue with aggressive IV hydration Start with Zosyn for gram neg coverage Follow up Bcx and Ucx CT abdomen findings as stated above S/p one dose of flomax given per ED NPO for now Pain control Urology consulted per ED. To follow up in the am for proposed procedure Infectious disease consult (2) Hydronephrosis with renal and ureteral calculous obstruction: Status: Acute Plan as above (3) Afib: Status: Acute Hold BP meds Continue with flecainide home dose
[2020-07-15] MEDS: 0.9 % Sodium Chloride 1,000 ML 999 ML IVCONT (01:40)
[2020-07-15 02:02] LABS: Glucose Urine UA NEG (NEG); Leukocyte Esterase Urine NEG (NEG); Nitrite Urine NEG (NEG); PH 5.5 (5.0-8.0); Specific Gravity - Urine >= 1.030 (1.005-1.025); Urine Blood 1+ (NEG); Urine Ketones NEG (NEG); Urine Protein NEG (NEG-TRACE)
[2020-07-15 02:06] LABS: Appearance Urine CLEAR; Color Urine YELLOW
[2020-07-15 02:38] LABS: Mucus Urine TRACE /LPF; Squamous Epithelial Cell Urine TRACE /LPF; WBC Urine 0-2 /HPF (0-4)
--- NOTE | 2020-07-15 02:46 | PC.NURSE ---
Called the floor again to give report after 45 minutes of no call back. Rn stated that she needed to adjust her heparin and would call me back. Patient has had his room assignment for over 47 minutes.
[2020-07-15 02:50] LABS: Anion Gap 11 (12-20); Blood Urea Nitrogen 19 mg/dL (9-16); Calcium 7.6 mg/dL (8.4-10.2); Carbon Dioxide 22 mmol/L (22-29); Chloride 109 mmol/L (96-108); Creatinine Clr Calc Pharmacy 55.9; Estimated Glomerular Filt Rate 50; Glucose Random 121 mg/dL (60-115); Potassium 4.3 mmol/l (3.3-5.1); Sodium 138 mmol/L (135-145)
--- NOTE | 2020-07-15 03:00 | PC.NURSE ---
Report given to floor. blood cultures just drawn on patient . He has antibiotics ordered upon transfer to unit.
[2020-07-15] MEDS: 0.9 % Sodium Chloride 1,000 ML 100 ML IVCONT ×2 (03:51→16:08)
[2020-07-15] MEDS: Heparin Sodium,Porcine 5,000 UNIT/ML VIAL 5000 UNIT SUBCUT (03:52)
[2020-07-15] MEDS: Piperacillin Sodium/Tazobactam 3.375 GM in 0.9 % Sodium Chloride 50 ML IV ×2 (05:25→08:50)
[2020-07-15 06:32] LABS: MANUAL DIFF FLAG NO
[2020-07-15 06:52] LABS: Basophils Percent Auto 0.1 % (0-2); Hematocrit 36.8 % (42-52); Hemoglobin 12.4 g/dl (14.0-18.0); Imm Gran Abs Auto 0.05 X10*3/uL (0.00-0.03); Imm Gran Pct Auto 0.4 % (0.0-0.4); Lymphocytes Percent Auto 7.8 % (20-40); Mean Corpuscular HGB Conc 33.7 g/dl (31.0-36.0); Mean Corpuscular Hemoglobin 31.8 pg (27.0-33.0); Mean Corpuscular Volume 94.4 fL (80-98); Mean Platelet Volume 10.4 fL (9.4-12.4); Monocytes Absolute Auto 0.5 X10*3/uL (0.1-1.2); Monocytes Percent Auto 3.8 % (2-11); Neutrophils Absolute Auto 10.8 X10*3/uL (2.0-8.3); Neutrophils Percent Auto 87.9 % (45-73); Platelet Count 231 X10*3/uL (160-400); Red Cell Distribution Width 15.2 % (11.0-16.0); White Blood Count 12.2 X10*3/uL (4.8-10.8)
[2020-07-15 06:58] LABS: Anion Gap 13 (12-20); Blood Urea Nitrogen 20 mg/dL (9-16); Calcium 7.5 mg/dL (8.4-10.2); Carbon Dioxide 21 mmol/L (22-29); Chloride 109 mmol/L (96-108); Creatinine Clr Calc Pharmacy 55.2; Estimated Glomerular Filt Rate 49; Glucose Random 113 mg/dL (60-115); Potassium 4.4 mmol/l (3.3-5.1); Sodium 139 mmol/L (135-145)
[2020-07-15] MEDS: Flecainide Acetate 50 MG TABLET PO ×2 (08:48→22:50)
--- NOTE | 2020-07-15 10:00 | MHC.CM.PN ---
IMM07/15/20 Male 70DX Renal stone. He lives with his . He is independent all functional mobility. DP home no services family transport.
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
--- NOTE | 2020-07-15 12:56 | PM.UROPN ---
Subjective Subjective Date of Service: 07/15/20 Interval history: Seen in mid day Appears to have passed stone Minimal pain Good go home with Flomax and 3 more days of steroids Can follow up in 2 weeks with ultrasound Physical Exam Vital Signs: Vital Signs: Last Vital Signs Temp 97.2 F 07/15/20 11:14 Pulse 85 07/15/20 11:14 Resp 18 07/15/20 11:14 BP 105/66 07/15/20 11:14 Pulse Ox 97 07/15/20 11:14 Body Mass Index 28.5 Const: General: cooperative, healthy appearing, comfortable and no acute distress Nutritional Appearance: average body habitus Orientation/consciousness: oriented to person, oriented to place and oriented to time Eyes: General: appearance normal, both eyes and all related structures Chest: Chest palpation & inspection: normal inspection of the chest Resp: Effort & Inspection: normal respiratory effort Cardio: Rate: regular rate GI: Inspection: Yes normal to inspection Skin: Hair: normal Neuro: General: oriented to person, oriented to place and oriented to time Extrem: General: Yes normal to inspection Progress Note: A&P Assessment and plan (1) Hydronephrosis with renal and ureteral calculous obstruction: Problem details: Will see if passes stone by mid day Status: Acute Assessment and Plan: See in 2 weeks with creatinine and ultrasound Fall Risk Details Current Medications: Current Medications Generic Name Dose Route Start Last Admin Trade Name Freq PRN Reason Stop Dose Admin Flecainide Acetate 50 mg 07/15/20 09:00 07/15/20 08:48 Flecainide Acetate 50 Mg Tablet PO 50 mg DAILY ALEJANDRO Administration Heparin Sodium (Porcine) 5,000 unit 07/15/20 03:00 07/15/20 10:07 Heparin Sodium,Porcine 5,000 Unit/Ml Vial SUBCUT Not Given Q8H ALEJANDRO Sodium Chloride 1,000 mls @ 100 mls/hr 07/15/20 01:45 07/15/20 03:51 Ns IVCONT 100 mls/hr .Q10H ALEJANDRO Administration Piperacillin Sod/Tazobactam 50 mls @ 100 mls/hr 07/15/20 04:00 07/15/20 09:25 Sod 3.375 gm/ Sodium Chloride IV Infused Q6H ALEJANDRO Infusion Sodium Chloride 3 ml 07/15/20 08:00 07/15/20 08:47 0.9 % Sodium Chloride Flush 3 Ml Syringe IVFLUSH Not Given QSHIFT ALEJANDRO Time Spent With Patient Time: Total time spent is greater than 50% in coordination of care (as documented) at patient's floor/unit and/or counseling patient: Time with patient: less than 15 minutes
[2020-07-15] MEDS: 0.9 % Sodium Chloride Flush 3 ML SYRINGE IVFLUSH (16:08)
--- NOTE | 2020-07-15 17:13 | HO.PM.IMPN ---
Subjective Subjective Date of Service: 07/15/20 Physical Exam Vital Signs: Vital Signs: Last Vital Signs Temp 98.7 F 07/15/20 15:15 Pulse 89 07/15/20 15:15 Resp 18 07/15/20 15:15 BP 123/75 07/15/20 15:15 Pulse Ox 95 07/15/20 15:15 Body Mass Index 28.5 Objective Data Current Medications Generic Name Dose Route Start Last Admin Trade Name Freq PRN Reason Stop Dose Admin Flecainide Acetate 50 mg 07/15/20 09:00 07/15/20 08:48 Flecainide Acetate 50 Mg Tablet PO 50 mg DAILY ALEJANDRO Administration Heparin Sodium (Porcine) 5,000 unit 07/15/20 03:00 07/15/20 10:07 Heparin Sodium,Porcine 5,000 Unit/Ml Vial SUBCUT Not Given Q8H ALEJANDRO Sodium Chloride 1,000 mls @ 100 mls/hr 07/15/20 01:45 07/15/20 16:08 Ns IVCONT 100 mls/hr .Q10H ALEJANDRO Administration Sodium Chloride 3 ml 07/15/20 08:00 07/15/20 16:08 0.9 % Sodium Chloride Flush 3 Ml Syringe IVFLUSH 3 ml QSHIFT ALEJANDRO Administration Labs CBC & Chem 7: 07/15/20 05:30 07/15/20 05:30
--- NOTE | 2020-07-15 17:14 | P.EN_ITS ---
Event Note Date of Service: 07/18/20 Event Note: Patient seen and examined already by the hospitalist team this mor gennaro Patient had mild ARETHA Suspicion night patient had a renal stone and, abdominal pain is improving Denies any burning or pain afterward Discussed with the Urology seems like less likely UTI as well as discussed with the Infectious Disease. Physical exam: Cvs: rrr, [id number] , no murmur res: clear to auscultation ,no rhonchii or wheezing abd: no rebound or guarding ,nt, bs present. ext pulses present , no cyanosis neuro: axo3 , nonfocal. Assessment and plan coordinated in H&P ARETHA dumont: We will continue IV fluid Monitor BMP Urine culture still pending
[2020-07-16] VITALS: BP 115/68; PULSE 88; RESP 18; TEMP 36.9; O2SAT 95
[2020-07-16] MEDS: 0.9 % Sodium Chloride 1,000 ML 100 ML IVCONT (01:02)
[2020-07-16 03:49] VITALS: BP 120/74; PULSE 76; RESP 18; TEMP 36.5; O2SAT 95
[2020-07-16 07:12] VITALS: BP 120/77; PULSE 70; RESP 18; TEMP 36.8; O2SAT 96
[2020-07-16 07:19] LABS: Anion Gap 10 (12-20); Blood Urea Nitrogen 18 mg/dL (9-16); Calcium 7.6 mg/dL (8.4-10.2); Carbon Dioxide 24 mmol/L (22-29); Chloride 110 mmol/L (96-108); Creatinine Clr Calc Pharmacy 83.9; Estimated Glomerular Filt Rate > 60; Glucose Random 94 mg/dL (60-115); Potassium 3.8 mmol/l (3.3-5.1); Sodium 140 mmol/L (135-145)
--- NOTE | 2020-07-16 08:52 | MHC.CM.PN ---
MALE 70 DX AB PAIN. Anticipate dc today. DP home no services family transport.
--- NOTE | 2020-07-16 09:09 | P.CDIC_ITS ---
CDI Concurrent Query Service Date: 07/18/20 Documentation Clarification: Please clarify if you are treating a proba ble/suspected/likely or confirmed: Sepsis txt Sepsis rule out-yes Sepsis resolved Please specify if known Provider Response: Other Other Diagnosis: sepsis ruled out PLEASE DO NOT DELETE/MODIFY EXISTING CONTENT Additional information is needed in order to code to the highest accuracy and appropriate Severity of Illness (SOI). Please clarify the information noted below in your progress notes and discharge summary. Risk Factors/Clinical Indicators/Treatments Ed: Tachycardic 97 Temp 100 initiate sepsis protocol. Clinical Impression - Sepsis, hydropnephrosis w renal and urteral calculous obstruction. H&P: Hypotensive 86/53 HR 105 WBC 15.2 LA normal Rocephin, IV fluids Assessment/plan: Sepsis CDS: Ofe Moise CCS, CDIS Contact Number: [phone] Please Review the information above and exercise your independent professional judgment in responding to the query. If you concur, pleas document in the PROGRESS NOTES and DISCHARGE SUMMARY. If you do not agree with the query, please document in the query above. THIS QUERY IS PART OF THE PERMANENT MEDICAL RECORD
--- NOTE | 2020-07-16 10:18 | P.DS_ITS ---
DS: Providers Provider Date of admission: 07/15/20 01:33 Primary care physician: Richard Castro MD Consults: 07/15/20 01:33 Consult to Infectious Diseases Routine Consulting Provider: Christine Smith Reason for consultation: sepsis Has provider been notified: No Consult to Urology Routine Consulting Provider: [facility] Reason for consultation: obstructive uropathy Has provider been notified: No DS: Diagnosis Discharge Diagnosis (1) Hydronephrosis with renal and ureteral calculous obstruction: Status: Acute Problem details: Will see if passes stone by mid day DS: Medications Discharge Medications Home Medications: Home Medications Medication Instructions Recorded Confirmed diltiazem HCl [Cartia XT] 120 mg PO DAILY 07/14/20 07/15/20 flecainide 50 mg PO DAILY 07/14/20 07/15/20 propranolol 80 mg PO NEEDED PRN 07/15/20 07/15/20 Previous Rx's Medication Instructions Recorded tamsulosin [Flomax] 0.4 mg PO DAILY #30 cap 07/16/20 DS: Summary Hospital Course Hospital Course: date of service and discharge: 07/16/2020. HPI:70 y/o male with PMHx of afib who presented from home due to abdominal pain. Per history provided by the patient, for the past 1 day has been having a pre ssure like pain, diffusely, 8/10 in intensity, associated with nausea and vomiting. Denies any episode of fever, chest pain, SOB, diarrhea or constipation. On presentation to the ED patient was noted to be hypotensive 86/53 mmHg and HR of 105, WBC of 15.2, lactate normal, CT abdomen positive for left obstructing stone of 3 mm in the ureterovesical junction, right nonobstructing ureteral stone of 2 mm, solitary lung nodules. One dose of Rocephin as well as 3 liters of NS given per ED. BP now 100/[address] Chambers contacted per ED who states will follow up in the am and recommends for morgan warren to be admitted under medicine. Decision for admission given;. Patient seen and examined at the bedside, laying down in bed in no acute distress. Mild tenderness of abdomen on palpation without evidence of any masses or rebound tenderness. ROS as above otherwise negative. Hospital course problem [place] section: Patient initially admitted for sepsis/UTI/renal stone/hydronephrosis.: Initiall y started on IV Zosyn and subsequently seen by infectious disease and urology: It was thought most likely the symptoms are because of renal stones and patient did not had any fever or and also probably passed his stone since does not have any pain either. His urine cultures and blood cultures preliminaries negative, ARETHA resolved with hydration. leucocytosis trending down. above d/w iD Dr smith: plan is to defer antibiotics since symptoms likely due to renal stone rather than UTI. Patient will be going home with Flomax, renal ultrasound in 2 weeks ,follow-up with Dr. Chambers in outpatiently. Further management outpatient as per PCP and Dr. chambers. patient blood cultures and urine cultures preliminary negative, leucocytosis trending down. patient was advised to come back to Ed if any new syptoms decvelops. Also patient was advised to follow-up with her his oncologist in [facility] Dr Hanson-regarding his lung nodules and liver hypodensities in next 1-2 weeks time. He understand and he wants to make his own appointment. follow up cbc and bmp in 1 week with pcp. assessment and plan coodination time spent 50 min and 50% time spent in counsiling , patient understands above and in agreement with above plan. Time Spent with Patient Time attestation: Total time spent providing and/or coordinating discharge services: Physical Exam Vital Signs: Vital Signs: Last Vital Signs Temp 97.8 F 07/16/20 10:58 Pulse 78 07/16/20 10:58 Resp 20 07/16/20 10:58 BP 140/86 H 07/16/20 10:58 Pulse Ox 98 07/16/20 10:58 Body Mass Index 28.5 Physical exam: Constitutional:not in distress , seems comfortable. Heent: eyes anicteric , no discharge. Cvs: rrr, [id number] , no murmur res: clear to auscultation ,no rhonchii or wheezing abd: no rebound or guarding ,nt, bs present. ext pulses present , no cyanosis neuro: axo3 , nonfocal. DS: Data Data Completed and Pending Labs on day of discharge: 07/14/20 19:31 ECG 12 lead EKG Stat EKG Documentation DIRECTED IV insert/maintain .Now IV insert/maintain NOW Rectal Temp NOW CT abdomen pelvis wo con Stat ondansetron HCL [Zofran] 4 mg IVPUSH ONCE ONE 07/14/20 19:32 CT chest wo con Stat 07/14/20 19:40 Acetaminophen [Tylenol] 975 mg PO ONCE ONE Morphine Sulfate 4 mg IVPUSH ONCE ONE ondansetron HCL [Zofran] 4 mg IVPUSH ONCE ONE 07/14/20 19:45 0.9 % Sodium Chloride [Ns] 1,000 ml IVCONT 999 mls/hr 0.9 % Sodium Chloride [Ns] 1,000 ml IVCONT 999 mls/hr 07/14/20 19:48 Lactic Acid Stat SARS-CoV2/FLU/RSV Stat 07/14/20 19:49 Complete Blood Count Auto Diff Stat Lipase Stat Magnesium Stat SLIDE REVIEW Stat Troponin-I High Sensitivity Stat 07/14/20 19:50 Partial Thromboplastin Time Stat Prothrombin Time INR Stat 07/14/20 19:56 Liver Panel Stat Blood Culture X2 [BC] Stat 07/14/20 20:45 cefTRIAXone sodium [Rocephin] 1 gm 0.9 % Sodium Chloride [Ns] 50 ml IV ONCE metroNIDAZOLE/NS [Flagyl] 500 mg in 100 ml IV ONCE 07/14/20 20:58 cefTRIAXone sodium [Rocephin] 1 gm .ROUTE .STK-MED ONE 07/14/20 22:15 HYDROmorphone HCl [Dilaudid] 1 mg IVPUSH ONCE ONE Tamsulosin HCL [Flomax] 0.4 mg PO ONCE ONE predniSONE 20 mg PO ONCE ONE 07/14/20 22:33 Insert/maintain urinary catheter NOW 07/15/20 00:15 0.9 % Sodium Chloride [Ns] 1,000 ml IVCONT 999 mls/hr 07/15/20 01:33 Ambulate QSHIFT WHILE AWAKE IV insert/maintain Q4HR Intake and Output QSHIFTE Vital Signs QSHIFT Code Status Routine 07/15/20 01:35 Urine Culture Urgent 07/15/20 01:45 0.9 % Sodium Chloride [Ns] 1,000 ml IVCONT 100 mls/hr 07/15/20 01:54 Transfer Order Routine 07/15/20 02:18 Basic Metabolic Panel Stat 07/15/20 02:54 Blood Culture X2 [BC] Stat 07/15/20 03:00 Heparin Sodium,Porcine 5,000 unit SUBCUT Q8H 07/15/20 04:00 Piperacillin Sodium/Tazobactam [Zosyn] 3.375 gm 0.9 % Sodium Chloride [Ns] 50 ml IV Q6H 07/15/20 05:22 Piperacillin Sodium/Tazobactam [Zosyn] 3.375 gm IV .STK-MED ONE 07/15/20 05:30 Basic Metabolic Panel Routine Complete Blood Count Auto Diff Routine 07/15/20 08:00 0.9 % Sodium Chloride Flush [NS Flush] 3 ml IVFLUSH QSHIFT 07/15/20 08:45 Piperacillin Sodium/Tazobactam [Zosyn] 3.375 gm IV .STK-MED ONE 07/15/20 09:00 Flecainide Acetate [Tambocor] 50 mg PO DAILY 07/15/20 Breakfast NPO Diet 07/16/20 05:25 Basic Metabolic Panel DAILY 07/16/20 09:00 Flecainide Acetate [Tambocor] 50 mg PO BID Laboratory Last Values WBC 12.2 X10*3/uL (4.8-10.8) H 07/15/20 05:30 RBC 3.90 X10*6/uL (4.60-5.80) L 07/15/20 05:30 Hgb 12.4 g/dl (14.0-18.0) L 07/15/20 05:30 Hct 36.8 % (42-52) L 07/15/20 05:30 MCV 94.4 fL (80-98) 07/15/20 05:30 MCH 31.8 pg (27.0-33.0) 07/15/20 05:30 MCHC 33.7 g/dl (31.0-36.0) 07/15/20 05:30 RDW 15.2 % (11.0-16.0) 07/15/20 05:30 Plt Count 231 X10*3/uL (160-400) 07/15/20 05:30 MPV 10.4 fL (9.4-12.4) 07/15/20 05:30 Immature Gran % (Auto) 0.4 % (0.0-0.4) 07/15/20 05:30 Neut % (Auto) 87.9 % (45-73) H 07/15/20 05:30 Lymph % (Auto) 7.8 % (20-40) L 07/15/20 05:30 [place] % (Auto) 3.8 % (2-11) 07/15/20 05:30 Eos % (Auto) 0.0 % (0-4) 07/15/20 05:30 Baso % (Auto) 0.1 % (0-2) 07/15/20 05:30 Lymph # (Auto) 1.0 X10*3/uL (1.2-4.9) L 07/15/20 05:30 [place] # (Auto) 0.5 X10*3/uL (0.1-1.2) 07/15/20 05:30 Eos # (Auto) 0.0 X10*3/uL (0.0-0.4) 07/15/20 05:30 Baso # (Auto) 0.0 X10*3/uL (0.0-0.2) 07/15/20 05:30 Abs Immat Gran (auto) 0.05 X10*3/uL (0.00-0.03) H 07/15/20 05:30 Absolute Neuts (auto) 10.8 X10*3/uL (2.0-8.3) H 07/15/20 05:30 Absolute Nucleated RBC 0.000 X10*3/uL (0.0-0.012) 07/15/20 05:30 Nucleated RBC % (auto) 0.0 /100WBC (0.0-0.2) 07/15/20 05:30 Smear Tech's Comments VERIFIED 07/14/20 19:49 PT 14.3 SEC (10.8-13.0) H 07/14/20 19:50 INR 1.2 (0.9-1.1) H 07/14/20 19:50 APTT 34.5 SEC (24.1-38.0) 07/14/20 19:50 Sodium 140 mmol/L (135-145) 07/16/20 05:25 Potassium 3.8 mmol/l (3.3-5.1) 07/16/20 05:25 Chloride 110 mmol/L (96-108) H 07/16/20 05:25 Carbon Dioxide 24 mmol/L (22-29) 07/16/20 05:25 Anion Gap 10 (12-20) L 07/16/20 05:25 BUN 18 mg/dL (9-16) H 07/16/20 05:25 Creatinine 0.94 mg/dL (0.5-1.4) 07/16/20 05:25 Estim Creat Clear Calc 83.9 07/16/20 05:25 Estimated GFR > 60 07/16/20 05:25 Random Glucose 94 mg/dL (60-115) 07/16/20 05:25 Lactic Acid 1.9 mmol/L (0.5-2.0) 07/14/20 19:48 Calcium 7.6 mg/dL (8.4-10.2) L 07/16/20 05:25 Magnesium 1.7 mg/dL (1.6-2.6) 07/14/20 19:49 Total Bilirubin 0.7 mg/dL (0.0-1.0) 07/14/20 19:56 Direct Bilirubin 0.3 mg/dL (0.0-0.5) 07/14/20 19:56 AST 34 U/L (5-37) 07/14/20 19:56 ALT 37 U/L (0-40) 07/14/20 19:56 Alkaline Phosphatase 94 U/L (39-117) 07/14/20 19:56 Troponin I High Sens 6.5 ng/L (<3.5-35.0) 07/14/20 19:49 Total Protein 7.3 g/dL (6.5-8.0) 07/14/20 19:56 Albumin 4.2 g/dL (3.5-5.0) 07/14/20 19:56 Lipase 19 U/L (8-78) 07/14/20 19:49 Urine Color Cancelled 07/15/20 01:35 Urine Color YELLOW 07/15/20 01:35 Urine Appearance CLEAR 07/15/20 01:35 Urine Appearance Cancelled 07/15/20 01:35 Urine pH 5.5 (5.0-8.0) 07/15/20 01:35 Urine pH Cancelled 07/15/20 01:35 Ur Specific Cod[place] >= 1.030 (1.005-1.025) H 07/15/20 01:35 Ur Specific Codorus Cancelled 07/15/20 01:35 Urine Protein Cancelled 07/15/20 01:35 Urine Protein NEG MG/DL (NEG-TRACE) 07/15/20 01:35 Urine Glucose (UA) Cancelled 07/15/20 01:35 Urine Glucose (UA) NEG MG/DL (NEG) 07/15/20 01:35 Urine Ketones Cancelled 07/15/20 01:35 Urine Ketones NEG MG/DL (NEG) 07/15/20 01:35 Urine Blood 1+ (NEG) H 07/15/20 01:35 Urine Blood Cancelled 07/15/20 01:35 Urine Nitrite Cancelled 07/15/20 01:35 Urine Nitrite NEG (NEG) 07/15/20 01:35 Ur Leukocyte Esterase Cancelled 07/15/20 01:35 Ur Leukocyte Esterase NEG (NEG) 07/15/20 01:35 Urine RBC 5-9 /HPF (0) H 07/15/20 01:35 Urine WBC 0-2 /HPF (0-4) 07/15/20 01:35 Ur Squamous Epith Cells TRACE /LPF 07/15/20 01:35 Urine Bacteria NONE /LPF 07/15/20 01:35 Urine Mucus TRACE /LPF 07/15/20 01:35 Coronavirus (PCR) NEGATIVE (Negative) 07/14/20 19:48 Influenza Type A (PCR) NEGATIVE (Negative) 07/14/20 19:48 Influenza Type B (PCR) NEGATIVE (Negative) 07/14/20 19:48 RSV RNA Qual (PCR) NEGATIVE (Negative) 07/14/20 19:48 CT/CT abdomen pelvis wo con IMPRESSION: 1. There is moderate hydronephrosis of the left kidney due to an obstructing 3 mm stone at the left ureterovesical junction. 2. A 2 mm non-obstructive stone in the right kidney. 3. Diverticulosis of colon without acute change of bowel. 4. Small hypodensities in the liver. These are indeterminate on noncontrast CAT scan. Largest measures 8 mm. In a patient without history of malignancy, no further assessment would be recommended for hepatic lesions of this size. 5. Three small smooth-bordered nodules in the lungs at the lung bases bilateral, largest measuring 4 mm. Various management parameters for solitary pulmonary nodules are in the literature. According to the UPDATED 2017 Fleischner Society recommendations, the advised follow up imaging for solid nodules < 6 mm is: LOW RISK PATIENT: No routine follow up. HIGH RISK PATIENT: Optional CT at 12 months. Discharge Plan Discharge Patient Disposition: Home, Self-Care Referrals: Stephane Chambers MD [Physician] - (Follow-up with Dr. Chambers in 1 week) Richard Castro MD [Primary Care Provider] - Discharge Medications: New tamsulosin [Flomax] 0.4 mg capsule 0.4 mg PO DAILY Qty: 30 RF: 0 Continued flecainide 50 mg tablet 50 mg PO DAILY RF: 0 diltiazem HCl [Cartia XT] 120 mg capsule,extended release 24hr 120 mg PO DAILY RF: 0 propranolol 80 mg capsule,extended release 24 hr 80 mg PO NEEDED PRN (Reason: Tremor(S)) RF: 0 Discharge Orders: Discharge Order (Routine); Ordered 07/16/20 Ordered By: Neva Askew Diet: advance to usual diet Activity on Discharge: As tolerated Discharge Date/Time: 07/16/20 12:03 Visit Report Forms: Patient Portal Discharge page Care Plan Goals: Patient initially admitted for sepsis/UTI/renal stone/hydronephrosis.: Initially started on IV Zosyn and subsequently seen by infectious disease and urology: It was thought most likely the symptoms are because of renal stones and patient did not had any fever or and also probably passed his stone since does not have any pain either. His urine cultures preliminaries negative, ARETHA resolved with hydration. Patient will be going home with Flomax, follow-up with Dr. Chambers in 1 week. Further management outpatient as per PCP and Dr. chambers. Also patient was advised to follow-up with her his oncologist in [facility]- regarding his lung nodules and liver hypodensities in next 1-2 weeks time. He understand and he wants to make his own appointment. Health Concerns: As above. Plan of Treatment: As above.
[2020-07-16 10:58] VITALS: BP 140/86; PULSE 78; RESP 20; TEMP 36.6; O2SAT 98
--- NOTE | 2020-07-16 11:19 | MHC.CM.PN ---
IMM 07/15/20 MALE 70 DX AB PAIN. DC TODAY HOME NO SERVICES. pT ARRANGED FOR TRANSPORTATION.
== END 2020-07-16 12:03 | disposition home or self-care (01) | DRG 694 ==
LOC: HO.ED 23:19 → HO.IMC 07-15 02:10
PROVIDERS: Nurse Practitioner Family; Admitting Provider Internal Medicine; Emergency Provider Emergency Medicine Emergency Medical Services; PCP Internal Medicine; Visit Provider Internal Medicine
DX: N13.2 Hydronephrosis with renal and ureteral calculous obstruction (principal); I48.91 Unspecified atrial fibrillation; Z20.828 Contact with and (suspected) exposure to other viral communicable diseases; Z79.899 Other long term (current) drug therapy
CPT/HCPCS: 0241U; 36415; 71250; 74176; 80048; 80076; 81001; 81003; 83605; 83690; 83735; 84484; 85025; 85610; 85730; 87040; 87086; 93005; 96361; 96365; 96375; 99285; 99291; C1758; J0696; J1170; J2270; J2405; J2543

== ENCOUNTER 2020-07-22 14:31 | Outpatient (REF) | payer MEDICARE, SELFPAY ==
--- NOTE | 2020-07-22 14:44 | US_ITS ---
EXAMINATION: US RETROPERITONEAL LIMITED (RENAL ONLY) CLINICAL INFORMATION: Hydronephrosis and history of kidney stones. COMPARISON: CT abdomen and pelvis without contrast dated 07/14/2020. TECHNIQUE: Real-time imaging of the kidneys. FINDINGS: RIGHT KIDNEY: 11.1 x 6.4 x 5.7 cm (SAG x AP x TRV). The kidney is normal in size, contour, and echogenicity. Renal cortical thickness is normal. There is a 1.3 x 1.9 x 1.3 cm slightly complex cyst in the midpole with single thin septation. There is an echogenic density in the midpole with twinkle artifact that measures 3 mm suggestive of a stone. No mass. No hydronephrosis. LEFT KIDNEY: 11.0 x 6.1 x 6.2 cm (SAG x AP x TRV). The kidney is normal in size, contour, and echogenicity. Renal cortical thickness is normal. No calculi or focal parenchymal lesions. No hydronephrosis. US/US renal BI IMPRESSION: Small right renal stone. 1.3 x 1.9 x 1.3 cm minimally complex cyst in the midpole of the right kidney with single thin septation. Normal left kidney. Left hydronephrosis no longer seen.
== END 2020-07-22 14:32 | disposition home or self-care (01) ==
LOC: HO.HMGCX 14:31
PROVIDERS: PCP Internal Medicine; Visit Provider Internal Medicine
DX: N13.2 Hydronephrosis with renal and ureteral calculous obstruction (principal); Z87.442 Personal history of urinary calculi
CPT/HCPCS: 76775

== ENCOUNTER → 2021-03-10 10:05 | Outpatient (BNVA) | payer MEDICARE, SELFPAY | PROVIDERS: PCP Internal Medicine; Referring Provider Internal Medicine; Visit Provider Surgery | DX: K40.90 Unilateral inguinal hernia, without obstruction or gangrene, not specified as recurrent (principal) | CPT/HCPCS: 99212 ==

== ENCOUNTER 2021-03-17 10:21 | Outpatient (REF) | payer MEDICARE, SELFPAY ==
[2021-03-17 10:24] LABS: MANUAL DIFF FLAG NO
[2021-03-17 10:53] LABS: Basophils Percent Auto 0.6 % (0-2); Eosinophils Absolute Auto 0.2 X10*3/uL (0.0-0.4); Eosinophils Percent Auto 2.8 % (0-4); Hematocrit 41.3 % (42-52); Hemoglobin 13.7 g/dl (14.0-18.0); Imm Gran Abs Auto 0.02 X10*3/uL (0.00-0.03); Imm Gran Pct Auto 0.3 % (0.0-0.4); Lymphocytes Absolute Auto 2.5 X10*3/uL (1.2-4.9); Lymphocytes Percent Auto 39.9 % (20-40); Mean Corpuscular HGB Conc 33.2 g/dl (31.0-36.0); Mean Corpuscular Volume 93.4 fL (80-98); Mean Platelet Volume 10.5 fL (9.4-12.4); Monocytes Absolute Auto 0.7 X10*3/uL (0.1-1.2); Monocytes Percent Auto 11.3 % (2-11); Neutrophils Absolute Auto 2.9 X10*3/uL (2.0-8.3); Neutrophils Percent Auto 45.1 % (45-73); Platelet Count 247 X10*3/uL (160-400); Red Blood Count 4.42 X10*6/uL (4.60-5.80); White Blood Count 6.4 X10*3/uL (4.8-10.8)
[2021-03-17 11:01] LABS: Glucose Urine UA NEG (NEG); Leukocyte Esterase Urine NEG (NEG); Nitrite Urine NEG (NEG); Specific Gravity - Urine >= 1.030 (1.005-1.025); Urine Blood NEG (NEG); Urine Ketones NEG (NEG); Urine Protein NEG (NEG-TRACE)
[2021-03-17 11:04] LABS: Appearance Urine CLEAR; Color Urine YELLOW
[2021-03-17 11:39] LABS: Alanine Aminotransferase 35 U/L (0-40); Albumin Level 3.9 g/dL (3.5-5.0); Alkaline Phosphatase 88 U/L (39-117); Anion Gap 14 (12-20); Aspartate Amino Transferase 34 U/L (5-37); Bilirubin Total 0.7 mg/dL (0.0-1.0); Blood Urea Nitrogen 16 mg/dL (9-16); Calcium 9.1 mg/dL (8.4-10.2); Carbon Dioxide 23 mmol/L (22-29); Chloride 109 mmol/L (96-108); Cholesterol 195 mg/dL; Estimated Glomerular Filt Rate > 60; Glucose Fasting 101 mg/dL (60-99); HDL Cholesterol 41 mg/dL; LDL Cholesterol Calculated 139 mg/dl; Sodium 142 mmol/L (135-145); Total Protein 6.9 g/dL (6.5-8.0); Triglycerides 75 mg/dL
[2021-03-17 11:51] LABS: PSA,Total (Free>4and<10) 4.98 ng/mL (0.00-4.00)
[2021-03-19 09:26] LABS: Free Prostate Spec Ag 0.8 ng/mL; Percent Free Prostate Spec Ag 16 % (calc) (>25)
== END 2021-03-17 10:22 | disposition home or self-care (01) ==
LOC: HO.LNP 10:21
PROVIDERS: Visit Provider Internal Medicine
DX: Z12.5 Encounter for screening for malignant neoplasm of prostate (principal); R97.20 Elevated prostate specific antigen [PSA]; C85.88 Other specified types of non-Hodgkin lymphoma, lymph nodes of multiple sites
CPT/HCPCS: 80053; 80061; 81003; 84153; 84154; 85025

== ENCOUNTER 2021-03-18 06:34 | Day surgery (SDC) | payer MEDICARE, SELFPAY ==
--- NOTE | 2021-03-17 08:36 | HO.ANESPROP2 ---
Documented by User: Emani Wilson 03/17/21 08:42 HPI - Anesthesia Eval Consult details Narrative: 71yo M for Left Hernia Repair Inguinal with Mesh No anticoag for afib s/p Bilateral llaparascopic hernia repair 2017; Recurrent R hernia repair 2019 [facility] Active Problems Active Problems: All Active Problems (Updated 03/10/21 @ 10:52 by Joselito Daniel MD) Left inguinal hernia (Acute) Past Medical History Medical History (Updated 03/17/21 @ 08:40 by Emani Wilson) Acute UTI Afib Calculus, renal Hydronephrosis Hydronephrosis with renal and ureteral calculous obstruction Non-Hodgkin lymphoma Sepsis Family History Family History Father Throat cancer Mother Melanoma Leukemia Surgical History Surgical History History of arthroscopy of left knee History of bilateral inguinal hernia repair (06/28/17) History of right inguinal hernia repair (08/28/18) Social History Social History Household Members: Spouse and Children Housing: House Do you presently have visiting nurse or other home services: No Patient Tobacco Use Status: Former Tobacco user Use of substances other than those prescribed or required for medical reasons: No Have you been hit, kicked, punched, or otherwise hurt by someone within the past year? If so, by whom?: No Are you DNR?: No Advance Directives: No Advance Directives Information Provided: Yes service: Yes Current occupational status: retired [employer] Allergies Allergy/AdvReac Type Severity Reaction Status Date / Time No Known Allergies Allergy Verified 03/18/21 06:44 [No Known Allergies*] Home Medications Medication Instructions Recorded Confirmed Last Taken Type diltiazem HCl 120 mg 120 mg PO DAILY 07/14/20 03/10/21 03/18/21 06:00 History capsule,extended release 24 hr (Cartia XT) flecainide 50 mg tablet 50 mg PO DAILY 07/14/20 03/10/21 03/18/21 06:00 History propranolol 80 mg capsule,24 80 mg PO NEEDED PRN 12/01/20 07/27/21 Unknown History hr,extended release Exam Exam Date and Time: March 17, 2021 0836 Narrative Narrative: EKG 06/2020 ([facility] admit with urosepsis d/t renal stone) Vent. Rate : 109 BPM ? ? Atrial Rate : 109 BPM ?? P-R Int : 180 ms? QRS Dur : 130 ms ? ? QT Int : 356 ms ? ? ? P-R-T Axes : 041 -19 005 degrees ?? QTc Int : 479 ms ? Sinus tachycardia Right bundle branch block Abnormal ECG When compared with ECG of 09-MAY-2015 13:32, Right bundle branch block is now Present ECHO 2018 EF 55-60% Borderline LVH Aortic sclerosis, no stenosis Moderate mitral regurg No change from 2012 Assessment and Plan Assessment Anesthesia Assessment: Chart Reviewed Documented by User: Kassi Solis 03/18/21 08:04 [facility] Past Medical History Medical History (Updated 03/17/21 @ 08:40 by Emani Wilson) Acute UTI Afib Calculus, renal Hydronephrosis Hydronephrosis with renal and ureteral calculous obstruction Non-Hodgkin lymphoma Sepsis Family History Family History Father Throat cancer Mother Melanoma Leukemia Family history of problems with anesthesia: No Surgical History Surgical History History of arthroscopy of left knee History of bilateral inguinal hernia repair (06/28/17) History of right inguinal hernia repair (08/28/18) History of Problems with Anesthesia: No Social History Social History Household Members: Spouse and Children Housing: House Do you presently have visiting nurse or other home services: No Patient Tobacco Use Status: Former Tobacco user Use of substances other than those prescribed or required for medical reasons: No Have you been hit, kicked, punched, or otherwise hurt by someone within the past year? If so, by whom?: No Are you DNR?: No Advance Directives: No Advance Directives Information Provided: Yes service: Yes Current occupational status: retired Meds Allergies Allergy/AdvReac Type Severity Reaction Status Date / Time No Known Allergies Allergy Verified 03/18/21 06:44 [No Known Allergies*] Home Medications Medication Instructions Recorded Confirmed Last Taken Type diltiazem HCl 120 mg 120 mg PO DAILY 07/14/20 03/10/21 03/18/21 06:00 History capsule,extended release 24 hr (Cartia XT) flecainide 50 mg tablet 50 mg PO DAILY 07/14/20 03/10/21 03/18/21 06:00 History propranolol 80 mg capsule,24 80 mg PO NEEDED PRN 07/15/20 03/10/21 Unknown History hr,extended release Exam Airway Mallampati Class: II TM Dist: >3cm Neck ROM: Full Heart: rrr Lungs: cta Assessment and Plan Assessment Anesthesia Assessment: Anesthesia Plan Discussed Final Anesthetic Review Family History of Problems with Anesthesia: No History of Problems with Anesthesia: No NPO: Yes ASA Class: II Final Preanesthetic Review: No Changes in Pt Med Stat and Consent Obtained/Reviewed Patient Risk: Intermediate Procedure Risk: Intermediate Anesthetic Plan Anesthetic Plan: GA Disposition: Standard PACU
[2021-03-18] VITALS (7 sets, daily range): BP systolic 104–117; BP diastolic 36–76; PULSE 71–85; RESP 16–18; TEMP 36.4–36.6; O2SAT 89–99; BMI 28.1
[2021-03-18] MEDS: Lactated Ringers 1,000 ML 100 ML IVCONT (07:05)
--- NOTE | 2021-03-18 08:14 | MHC.SHP ---
Pre-Procedural Eval Section A Date of Service: 03/18/21 The patient is an INPATIENT: No Changes since office visit: Yes Patient answered all questions; No Cold of Flu in the past 2 weeks, No New Medical Problems and No Changes in Medication The History & Physical has been completed within 30 days and I have reviewed it.: Yes Section B Chief Complaint: left Inguinal Hernia Allergies: Allergies Allergy/AdvReac Type Severity Reaction Status Date / Time No Known Allergies Allergy Verified 03/18/21 06:44 [No Known Allergies*] Plan Diagnosis/Plan: Unchanged I have reviewed the history and physical and performed a pertinent physical examination on my patient. No changes have occurred unless specified.
--- NOTE | 2021-03-18 09:02 | P.OP_ITS ---
Operative Note Operative Note Date of Service: 03/18/21 Narrative: Preoperative diagnosis: Left inguinal hernia Postoperative diagnosis: Same Procedure: Repair of Left inguinal hernia Surgeon: Joselito Daniel MD Rivet Bucker: Ingris Crum PA-C Anesthesia: General LMA Indications for procedure: 71-year-old male patient presenting with a previous history of a laparoscopic bilateral inguinal hernia repair now presenting with a lump in the left groin increases in size with lifting and straining. On examination there is a left inguinal hernia which increases once in the standing position and with Valsalva maneuvers. Operative findings:. Patient was found to have a hernia at the internal ring suggestive of a recurrence indirect hernia. Specimen: None Estimated blood loss: 5 mL Complications: None Procedure details: Patient was brought to the OR and placed in a supine position. After administering general anesthesia the patient's abdomen was prepped with ChloraPrep and draped in a sterile fashion. A surgical time-out was called the consent confirmed. Patient received preoperative antibiotics and Venodyne boots were in place. Local anesthesia consisting of 0.5% Sensorcaine with epinephrine was infiltrated over the left inguinal ligament. Incision was then made in oblique fashion over the inguinal ligament. This carried out through subcutaneous tissue past Kareem's fashion up to the external oblique aponeurosis. Additional local was infiltrated below the external oblique aponeurosis. This was then incised with a scalpel wide with the Metzenbaum scissors. Spermatic cord was then dissected free from the surrounding inguinal canal and retracted using a Pompeys Pillar drain. The floor of the inguinal canal was examined and no direct hernia was identified. Fibers of the cremasteric muscle were then and a lipoma noted extending from the internal ring. No hernia sac was identified. The lipoma was dissected to the internal ring and reduced into the abdominal cavity. Fibers of the internal oblique and transversalis aponeurosis were then incised between clamps and a preperitoneal space created. A medium PHS mesh was then obtained. The circular underlay was placed into the preperitoneal space and deployed. Fibers of the internal oblique and transversalis aponeurosis were then closed using a 0 Polysorb suture. The overlay was then secured to the pubic tubercle conjoined tendon shelving edge of the inguinal ligament using interrupted 0 Polysorb sutures. A slit was made in the mesh and the mesh were wrapped around the spermatic cord at the internal ring. This was then secured to the shelving edge of the inguinal ligament using the 0 Polysorb suture. This was felt to be loose enough to allow the tip of an index finger to pass. Wounds were checked for hemostasis. Wounds were irrigated with saline solution and suctioned dry. External oblique aponeurosis was then closed using a running 2 0 Polysorb suture. Kareem's fascia and dermis reapproximated using interrupted 3- 0 Polysorb sutures. Skin was then closed using a running subcuticular 4-0 Polysorb suture. Steri-Strips 2 x 2 gauze and Tegaderm were then applied. The patient tolerated the procedure well. Sponge, instrument, needle counts reported as correct. Patient was transferred to PACU in stable condition.
== END 2021-03-18 10:47 | disposition home or self-care (01) ==
PROVIDERS: PCP Internal Medicine; Visit Provider Surgery
PROC: (CPT 49520; principal; 2021-03-18 08:30)
DX: K40.91 Unilateral inguinal hernia, without obstruction or gangrene, recurrent (principal); I48.91 Unspecified atrial fibrillation; C85.90 Non-Hodgkin lymphoma, unspecified, unspecified site; Z92.21 Personal history of antineoplastic chemotherapy; Z79.899 Other long term (current) drug therapy; Z86.19 Personal history of other infectious and parasitic diseases; Z87.891 Personal history of nicotine dependence
CPT/HCPCS: 49520; C1781; J0690; J1100; J1885; J2250; J2405; J3010

== ENCOUNTER → 2021-03-31 10:09 | Outpatient (BNVA) | payer MEDICARE, SELFPAY | PROVIDERS: PCP Internal Medicine; Referring Provider Internal Medicine; Visit Provider Surgery | DX: Z48.815 Encounter for surgical aftercare following surgery on the digestive system (principal); Z87.19 Personal history of other diseases of the digestive system | CPT/HCPCS: 99212 ==

== ENCOUNTER → 2021-05-01 09:36 | Outpatient (BNVA) | payer MEDICARE, SELFPAY | PROVIDERS: PCP Internal Medicine; Visit Provider Surgery | DX: Z48.815 Encounter for surgical aftercare following surgery on the digestive system (principal); Z87.19 Personal history of other diseases of the digestive system | CPT/HCPCS: 99212 ==

== ENCOUNTER 2021-07-28 15:51 | Outpatient (REF) | payer MEDICARE, SELFPAY ==
--- NOTE | ~2021-07-28 | US_ITS ---
EXAMINATION: US RETROPERITONEAL LIMITED (RENAL ONLY) CLINICAL INFORMATION: Complex renal cyst. COMPARISON: Renal ultrasound 07/22/2020. CT abdomen and pelvis 07/14/2020. TECHNIQUE: Real-time imaging of the kidneys. FINDINGS: RIGHT KIDNEY: 10.6 x 6.0 x 6.3 cm (SAG x AP x TRV). The kidney is normal in size, contour, and echogenicity. Renal cortical thickness is normal. There is an anechoic cyst with septations in the upper pole measuring 2.1 x 1.4 x 1.7 cm. There is an echogenic stone with shadowing in the midpole measuring 0.5 x 0.5 cm. No caliectasis is seen. There is mild pelvic fullness versus mild hydronephrosis. LEFT KIDNEY: 10.3 x 6.0 x 4.7 cm (SAG x AP x TRV). The kidney is normal in size, contour, and echogenicity. Renal cortical thickness is normal. No focal parenchymal lesions or hydronephrosis. There is mild hydronephrosis versus pelvic fullness visualized. There are two echogenic stones in the midpole and lower pole laterally. They measure 0.3 x 0.2 cm, 0.2 x 0.1 cm, 0.2 x 0.1 cm and 0.3 x 0.2 cm. In addition there are several multiple echogenic foci. No caliectasis or hydronephrosis seen. US/US renal BI IMPRESSION: Bilateral small echogenic foci, no caliectasis. Mild hydronephrosis versus pelvic fullness right kidney. Complex Bosniak type II cyst upper pole right kidney.
== END 2021-07-28 15:52 | disposition home or self-care (01) ==
LOC: HO.US 15:51
PROVIDERS: PCP Internal Medicine; Visit Provider Internal Medicine
DX: N28.1 Cyst of kidney, acquired (principal)
CPT/HCPCS: 76775

== ENCOUNTER 2022-04-09 10:46 | Outpatient (REF) | payer MEDICARE, SELFPAY ==
[2022-04-09 10:51] LABS: MANUAL DIFF FLAG NO
[2022-04-09 11:15] LABS: Basophils Percent Auto 0.6 % (0-2); Eosinophils Absolute Auto 0.2 X10*3/uL (0.0-0.4); Hematocrit 39.5 % (42.0-52.0); Hemoglobin 13.5 g/dl (14.0-18.0); Imm Gran Abs Auto 0.01 X10*3/uL (0.00-0.03); Imm Gran Pct Auto 0.1 % (0.0-0.4); Lymphocytes Absolute Auto 2.3 X10*3/uL (1.2-4.9); Lymphocytes Percent Auto 35.1 % (20-40); Mean Corpuscular HGB Conc 34.2 g/dl (31.0-36.0); Mean Corpuscular Hemoglobin 32.3 pg (27.0-33.0); Mean Corpuscular Volume 94.5 fL (80.0-98.0); Mean Platelet Volume 10.8 fL (9.4-12.4); Monocytes Absolute Auto 0.6 X10*3/uL (0.1-1.2); Monocytes Percent Auto 9.6 % (2-11); Neutrophils Absolute Auto 3.4 x10*3/uL (2.0-8.3); Neutrophils Percent Auto 51.6 % (45-73); Platelet Count 220 X10*3/uL (160-400); Red Blood Count 4.18 X10*6/uL (4.60-5.80); Red Cell Distribution Width 14.4 % (11.0-16.0); White Blood Count 6.7 X10*3/uL (4.8-10.8)
[2022-04-09 11:29] LABS: Appearance Urine Clear; Color Urine Yellow; Glucose Urine UA Negative (Negative); Leukocyte Esterase Urine Negative (Negative); Nitrite Urine Negative (Negative); Urine Blood Negative (Negative); Urine Ketones Negative (Negative); Urine Protein Negative (Neg-Trace)
[2022-04-09 11:42] LABS: Bacteria Urine None Seen (None Seen); Hyaline Casts Urine 0-2 /LPF (0-2); RBC Urine 0-2 /HPF (0-2); Squamous Epithelial Cell Urine 0-2 /HPF (0-2); WBC Urine 0-5 /HPF (0-5)
[2022-04-09 12:07] LABS: Alanine Aminotransferase 25 U/L (0-40); Albumin Level 3.9 g/dL (3.5-5.0); Alkaline Phosphatase 82 U/L (39-117); Anion Gap 16 (12-20); Aspartate Amino Transferase 27 U/L (5-37); Bilirubin Total 0.6 mg/dL (0.0-1.0); Blood Urea Nitrogen 21 mg/dL (9-16); Calcium 9.2 mg/dL (8.4-10.2); Carbon Dioxide 25 mmol/L (22-29); Chloride 104 mmol/L (96-108); Cholesterol 203 mg/dL; Estimated Glomerular Filt Rate > 60; Glucose Fasting 92 mg/dL (60-99); HDL Cholesterol 46 mg/dL; LDL Cholesterol Calculated 139 mg/dl; Potassium 4.5 mmol/L (3.3-5.1); Sodium 140 mmol/L (135-145); Triglycerides 93 mg/dL
[2022-04-09 12:17] LABS: PSA,Total (Free>4and<10) 4.97 ng/mL (0.00-4.00)
[2022-04-12 08:28] LABS: Free Prostate Spec Ag 1.4 ng/mL; Percent Free Prostate Spec Ag 25 % (calc) (>25); Prostate Specific Ag Total 5.7 ng/mL (< OR = 4.0)
== END 2022-04-09 10:47 | disposition home or self-care (01) ==
LOC: HO.LNP 10:46
PROVIDERS: Visit Provider Internal Medicine
DX: Z12.5 Encounter for screening for malignant neoplasm of prostate (principal); R97.20 Elevated prostate specific antigen [PSA]; C85.88 Other specified types of non-Hodgkin lymphoma, lymph nodes of multiple sites; E78.00 Pure hypercholesterolemia, unspecified; E78.9 Disorder of lipoprotein metabolism, unspecified
CPT/HCPCS: 80053; 80061; 81001; 84153; 84154; 85025

== ENCOUNTER 2023-06-27 11:05 | Outpatient (REF) | payer MEDICARE, SELFPAY ==
[2023-06-27 11:09] LABS: MANUAL DIFF FLAG NO
[2023-06-27 11:39] LABS: Basophils Percent Auto 0.5 % (0-2); Eosinophils Absolute Auto 0.2 X10*3/uL (0.0-0.4); Eosinophils Percent Auto 2.6 % (0-4); Hematocrit 39.3 % (42.0-52.0); Hemoglobin 13.3 g/dl (14.0-18.0); Imm Gran Abs Auto 0.02 X10*3/uL (0.00-0.03); Imm Gran Pct Auto 0.3 % (0.0-0.4); Lymphocytes Absolute Auto 1.9 X10*3/uL (1.2-4.9); Mean Corpuscular HGB Conc 33.8 g/dl (31.0-36.0); Mean Corpuscular Hemoglobin 31.6 pg (27.0-33.0); Mean Corpuscular Volume 93.3 fL (80.0-98.0); Mean Platelet Volume 10.5 fL (9.4-12.4); Monocytes Absolute Auto 0.5 X10*3/uL (0.1-1.2); Monocytes Percent Auto 8.7 % (2-11); Neutrophils Absolute Auto 3.3 x10*3/uL (2.0-8.3); Neutrophils Percent Auto 55.9 % (45-73); Platelet Count 245 X10*3/uL (160-400); Red Blood Count 4.21 X10*6/uL (4.60-5.80); Red Cell Distribution Width 14.9 % (11.0-16.0); White Blood Count 5.9 X10*3/uL (4.8-10.8)
[2023-06-27 11:40] LABS: Appearance Urine Clear; Color Urine Yellow; Glucose Urine UA Negative (Negative); Leukocyte Esterase Urine Negative (Negative); Nitrite Urine Negative (Negative); PH 5.5 (5.0-9.0); Specific Gravity - Urine 1.015 (1.005-1.025); Urine Blood Negative (Negative); Urine Ketones Negative (Negative); Urine Protein Negative (Neg-Trace)
[2023-06-27 11:49] LABS: Alanine Aminotransferase 24 U/L (0-40); Albumin Level 3.9 g/dL (3.5-5.0); Alkaline Phosphatase 81 U/L (39-117); Anion Gap 11 (12-20); Aspartate Amino Transferase 30 U/L (5-37); Bilirubin Total 0.6 mg/dL (0.0-1.0); Blood Urea Nitrogen 14 mg/dL (9-16); Calcium 9.1 mg/dL (8.4-10.2); Carbon Dioxide 27 mmol/L (22-29); Chloride 105 mmol/L (96-108); Cholesterol 192 mg/dL (<200); Estimated Glomerular Filt Rate > 60; Glucose Fasting 99 mg/dL (60-99); HDL Cholesterol 42 mg/dL (>40); LDL Cholesterol Calculated 128 mg/dL (<100); Potassium 3.9 mmol/L (3.3-5.1); Sodium 139 mmol/L (135-145); Total Protein 7.1 g/dL (6.5-8.0); Triglycerides 112 mg/dL (<150)
[2023-06-27 12:07] LABS: PSA,Total (Free>4and<10) 4.74 ng/mL (0.00-4.00)
[2023-06-28 10:43] LABS: Free Prostate Spec Ag 1.1 ng/mL; Percent Free Prostate Spec Ag 22 % (calc) (>25)
== END 2023-06-27 11:06 | disposition home or self-care (01) ==
LOC: HO.LNP 11:05
PROVIDERS: Visit Provider Internal Medicine
DX: R97.20 Elevated prostate specific antigen [PSA] (principal); E78.00 Pure hypercholesterolemia, unspecified; Z12.5 Encounter for screening for malignant neoplasm of prostate
CPT/HCPCS: 80053; 80061; 81003; 84153; 84154; 85025

== ENCOUNTER 2023-07-04 10:04 | Outpatient (REF) | payer MEDICARE, SELFPAY ==
--- NOTE | ~2023-07-04 | XR_ITS ---
EXAMINATION: XR CERVICAL SPINE CLINICAL INFORMATION: Neck pain COMPARISON: None available. TECHNIQUE: 4 views of the cervical spine were obtained. FINDINGS: There are no prevertebral soft tissue or bony abnormalities demonstrated. No compression fractures or subluxations are identified. Vertebral bodies normally aligned. There is multilevel degenerative disc changes manifested by varying degrees of mild to moderate disc space narrowing and endplate osteophytes extending from C2-C3 through C6-C7. Suspect facet arthrosis and at least on the left side at C5-C6. Possible facet arthrosis at the C7-T1 level. Surrounding bone and soft tissues unremarkable. XR/XR cervical spine 3V IMPRESSION: 1. No acute abnormality. 2. Multilevel spondylosis of the cervical spine.
== END 2023-07-04 10:05 | disposition home or self-care (01) ==
LOC: HO.XRAY 10:04
PROVIDERS: PCP Internal Medicine; Visit Provider Internal Medicine
DX: M54.2 Cervicalgia (principal)
CPT/HCPCS: 72040

== ENCOUNTER 2023-12-26 09:40 | Outpatient (REF) | payer MEDICARE, SELFPAY ==
--- NOTE | ~2023-12-26 | XR_ITS ---
EXAMINATION: XR SHOULDER, RIGHT CLINICAL INFORMATION: Pain and unspecified shoulder. COMPARISON: Right shoulder 03/21/2015. TECHNIQUE: Three views of the right shoulder. FINDINGS: There is narrowing of the subacromial space consistent with chronic rotator cuff pathology. Rotator cuff tacks are seen in the superolateral humeral head. Mild osteoarthritis of the acromioclavicular joint and mild osteoarthritis of the glenohumeral joint. No fracture. Surgical clips in the left axilla. XR/XR shoulder RT min 2V IMPRESSION: Chronic rotator cuff pathology. Mild osteoarthritis of the acromioclavicular and glenohumeral joints.
== END 2023-12-26 09:41 | disposition home or self-care (01) ==
LOC: HO.HOSX 09:40
PROVIDERS: Visit Provider Physician Assistant
DX: M25.511 Pain in right shoulder (principal); Z91.81 History of falling
CPT/HCPCS: 73030; 99202

== ENCOUNTER 2023-12-26 14:57 | Outpatient (AMB) | payer MEDICARE, SELFPAY ==
--- NOTE | 2023-12-26 15:07 | MHC.OFFVIS ---
Intake Visit Reasons: New Pt - RT shoulder pain Intake Note: Joselito is a 73 year old left hand dominant male who presents today as a new patient for a evaluation of his right shoulder pain, right RTC repair 2017. He states that he took a fall when he missed a step which lead him to fall on his right side. Patient reports that his ROM is limited. Allergies No Known Allergies [No Known Allergies*] Allergy (Verified 12/26/23 15:12) HPI HPI New Pt - RT shoulder pain: Details: 73-year-old left hand dominant male who presents in the office today, as a new patient, for an evaluation of right shoulder pain. Patient report he fell after missing a step about a week ago, causing him to land on his right side. Patient reports a limited ROM since the injury. Patient confirms a surgical history of a right rotator cuff repair in 2017. [facility] Medical History (Updated 12/27/23 @ 08:05 by Leslie Browning PA-C) Non-Hodgkin lymphoma Afib Hydronephrosis with renal and ureteral calculous obstruction Acute UTI Sepsis Calculus, renal Hydronephrosis Surgical History History of arthroscopy of left knee History of bilateral inguinal hernia repair (06/28/17) History of left inguinal hernia repair History of right inguinal hernia repair (08/28/18) Family History Father Throat cancer Mother Melanoma Leukemia Social History Household Members: Spouse and Children Housing: House Do you presently have visiting nurse or other home services: No Patient Tobacco Use Status: Former Tobacco user service: Yes Current occupational status: retired Review of Systems Const All systems reviewed & are unremarkable except as noted in HPI and below Physical Exam Const General: cooperative, healthy appearing and no acute distress Resp Effort & Inspection: normal respiratory effort and able to speak in complete sentences Cardio Rate: regular rate Peripheral pulses: Peripheral pulses 2+ throughout GI Palpation (GI): Soft to palpation Skin Lesions: no lesions Rashes: no rashes Extrem Other: Right shoulder: Forward flexion to 90 degrees with a great deal of pain. Abduction to 90 degrees. Pain with cross-body reach. External rotation to 45 degrees. Significant weakness with empty can. Negative drop arm. NVI. Assessment & Plan Assessment & Plan (1) History of repair of right rotator cuff: Code(s): Z98.890 - Other specified postprocedural states Category: Surgical (2) Shoulder joint painful on movement: Code(s): M25.519 - Pain in unspecified shoulder Category: Medical (3) Fall: Code(s): W19.XXXA - Unspecified fall, initial encounter Category: Medical Plan Mr. Hurd is a 73-year-old left hand dominant male who presents in the office today, as a new patient, for an evaluation of right shoulder pain. Patient report he fell after missing a step about a week ago, causing him to land on his right side. Patient reports a limited ROM since the injury. Patient confirms a surgical history of a right rotator cuff repair in 2017. Due to the injury only occurring a week ago I feel at this point he can manage his pain with OTC Ibuprofen and Tylenol. He is able to alternate these as needed. He denies any history of kidney or liver complications. I would like for the patient to attend PT to work on gentle ROM in modalities to assist with inflammation. We have agreed to defer a cortisone injection at this time due to the acute nature of the injury. Follow up will be in 6 weeks, or sooner if needed. X-rays of the right shoulder which were obtained while in the office today and were reviewed by me, Leslie Browning PA-C, revealed no acute fracture or dislocation. Rotator cuff anchors are intact. Orders: Orders XR shoulder RT min 2V 12/26/23 M25.519 - Pain in unspecified shoulder PT Evaluation and Treatment Today M25.519 - Pain in unspecified shoulder, W19.XXXA - Unspecified fall, initial encounter, Z98.890 - Other specified postprocedural states Patient Instructions: Scribed by Rupinder Leary medical staff physician, for Leslie Browning PA-C on 12/26/2023 at 2:29 pm, EST. Coding Level of Care Code New Pt Level 4 (90217) Diagnoses History of repair of right rotator cuff Z98.890 Shoulder joint painful on movement M25.519 Fall W19.XXXA
== END 2023-12-26 15:32 | disposition home or self-care (01) ==
PROVIDERS: PCP Internal Medicine; Visit Provider Physician Assistant
DX: M25.511 Pain in right shoulder (principal); W19.XXXA Unspecified fall, initial encounter
CPT/HCPCS: 99203

== ENCOUNTER 2024-01-27 09:00 | Outpatient (RCR) | payer MEDICARE, SELFPAY ==
--- NOTE | 2024-01-11 10:53 | MHC.PT.EP ---
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 male who is referred to PT by Leslie Browning PA-C with Dx of RIGHT shoulder pain (after mechanical fall). 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 He has Hx of RIGHT shoulder RTC repair in 2017. Patient impairments include pain, limited ROM, weakness. Patient current functional limitations are overhead reach, get items out of high cabinet of fridge, reach behind his back, sleeping. Patient will benefit from skilled PT to address aforementioned impairments and functional limitations to meet established goals. If weakness into ER persists, recommend imaging for soft tissue to visualize RTC mesculature/tendons. Frequency and Duration: The patient will be seen 2x/week for 4 weeks Short Term Goals: 2 weeks Patient demonstrates consistency and independence with HEP to self manage symptoms. Patient presents with negative active painful arc test, indicating reduction of RIGHT shoulder impingement. Home And Family Living Professor Goals: 4 weeks Patient presents with increased RIGHT shoulder ER 70 degrees to be able to reach behind back for dressing. Patient presents with increased RIGHT shoulder flexion strength 4+/5 to be able to reach to high cabinet for cups/plates. Treatment Plan: Modalities to reduce pain, spasms and effusion. Manual therapy to restore motion and function. Therapeutic exercise to improve strength and flexibility. Neuromuscular re-education for posture and balance. Therapeutic activities to return to functional activities of daily living. Electronically signed by: Danielle Anderson, PT, DPT Please sign and return to therapist. Thank you for your referral.
--- NOTE | 2024-01-27 12:13 | MHC.PT.DC ---
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 He feels his ROM and strength have improved but can work on in independently with HEP and tools learned in PT. Discussion of FUP with MD, may require MRI if strength has not returned due to possibility of re-tear. Electronically signed by: Danielle Anderson, PT, DPT Please sign and return to therapist. Thank you for your referral.
== END 2024-01-27 12:14 | disposition home or self-care (01) ==
LOC: HO.PT 09:00
PROVIDERS: PCP Internal Medicine; Visit Provider Physician Assistant
DX: M25.511 Pain in right shoulder (principal); Z98.890 Other specified postprocedural states; Z91.81 History of falling
CPT/HCPCS: 97035; 97110; 97140; 97161; 97530

== ENCOUNTER 2024-02-09 11:23 | Outpatient (AMB) | payer MEDICARE, SELFPAY ==
--- NOTE | 2024-02-09 11:25 | A.OFFVIS_ITS ---
Vital Signs 02/09/24 11:28 Height 5 ft 11 in Weight 195 lb BMI 27.2 Intake Visit Reasons: OV-RT shoulder pain Intake Note: Joselito is a 73 year old left hand dominant male who presents today for a follow up of his right shoulder pain. Patient reports having improvement in his pain since his last visit. He has completed PT, which has helped however he continues to have discomfort with raising his arm. Allergies No Known Allergies [No Known Allergies*] Allergy (Verified 02/09/24 11:36) HPI HPI OV-RT shoulder pain: Details: 73-year-old left hand dominant male who presents in the office today for a follow-up of right shoulder pain. I last saw the patient in the office on 12/26/2023 status post a fall a week prior. He was encouraged to use OTC ibuprofen or Tylenol and was referred to physical therapy. The patient attended 5 sessions of PT and was discharged on 01/27/2024.? ? While in the office today, the patient reports improvement in his pain since his last visit. He confirms attending and completing physical therapy; however, he reports continued discomfort with raising his right upper extremity.? [facility] Medical History (Updated 12/27/23 @ 08:05 by Leslie Browning PA-C) Non-Hodgkin lymphoma Afib Hydronephrosis with renal and ureteral calculous obstruction Acute UTI Sepsis Calculus, renal Hydronephrosis Surgical History History of arthroscopy of left knee History of bilateral inguinal hernia repair (06/28/17) History of left inguinal hernia repair History of right inguinal hernia repair (08/28/18) Family History Father Throat cancer Mother Melanoma Leukemia Social History Household Members: Spouse and Children Housing: House Do you presently have visiting nurse or other home services: No Patient Tobacco Use Status: Former Tobacco user service: Yes Current occupational status: retired Review of Systems Const All systems reviewed & are unremarkable except as noted in HPI and below Physical Exam Vital Signs: BMI result Body Mass Index 27.2 Const General: cooperative, healthy appearing and no acute distress Resp Effort & Inspection: normal respiratory effort and able to speak in complete sentences Cardio Rate: regular rate Peripheral pulses: Peripheral pulses 2+ throughout GI Palpation (GI): Soft to palpation Skin Lesions: no lesions Rashes: no rashes Extrem Other: Right shoulder: Forward flexion to 90 degrees with a great deal of pain. Abduction to 90 degrees. Pain with cross-body reach. External rotation to 45 degrees. Significant weakness with empty can. Negative drop arm. NVI. Assessment & Plan Assessment & Plan (1) History of repair of right rotator cuff: Code(s): Z98.890 - Other specified postprocedural states Category: Surgical (2) Shoulder joint painful on movement: Code(s): M25.519 - Pain in unspecified shoulder Category: Medical (3) Fall: Code(s): W19.XXXA - Unspecified fall, initial encounter Category: Medical Plan Mr. Hurd is a 73-year-old left hand dominant male who presents in the office today for a follow-up of right shoulder pain. I last saw the patient in the office on 12/26/2023 status post a fall a week prior. He was encouraged to use OTC ibuprofen or Tylenol and was referred to physical therapy. The patient attended 5 sessions of PT and was discharged on 01/27/2024.? ? While in the office today, the patient reports improvement in his pain since his last visit. He confirms attending and completing physical therapy; however, he reports continued discomfort with raising his right upper extremity.? ? The patient will be referred for an MRI to further evaluate the integrity of the right shoulder and the surrounding structures. The patient will call the office once the MRI is obtained.?Follow-up will be after the MRI is obtained, or sooner if needed. ? Orders: Orders MR shoulder RT wo con Today Z98.890 - Other specified postprocedural states Patient Instructions: Scribed by Rupinder Leary director medical writing, for Leslie Browning PA-C on 02/09/2024 at 11:27 am, EST.? Coding Level of Care Code Est Pt Level 3 (24200) Diagnoses History of repair of right rotator cuff Z98.890 Shoulder joint painful on movement M25.519 Fall W19.XXXA
--- OUTSIDE RECORDS SUMMARY | 2024-02-09 11:25 | XMS_ITS | Patient Health Record ---
Author Organization Richard Castro MD Address [address] [place] [phone] Care Team Providers Care Clay Digger Name Role Phone Richard Castro Primary Care Provider ALLERGIES No Known Allergies RESULTS Component Value Reference Range Notes PSA Free and Total Reviewed date:06/28/2023 12:08:39 PM Interpretation: Performing Lab:[facility], [address] [place] [id number] Notes/Report: Prostate Specific Ag Total 5.0 < OR = 4.0 ng/ mL Percent Free Prostate Spec Ag 22 >25 % (calc ) PSA(ng/mL) Free PSA(%) Estimated(x) Probability of Cancer(as%) 0-2.5 (*) Approx. 1 2.6-4.0(1) 0-27(2) 24(3) 4.1-10(4) 0-10 56 11-15 28 16-20 20 21-25 16 >or =26 8 >10(+) N/A >50 References:(1)Caden et al.:Urology 60: 469-474 (2001) (2)Caden et al.:J.Urol 168: 922-925 (2001) Free PSA(%) Sensitivity(%) Specificity(%) < or = 25 85 19 < or = 30 93 9 (3)Catalona et al.:MICHI 277: 0796-8493 (1996) (4)Catalona et al.:MICHI 279: 3024-5214 (1997) (x)These estimates vary with age, ethnicity, family history and SANTANA results. (*)The diagnostic usefulness of % Free PSA has not been established in patients with total PSA below 2.6 ng/mL (+)In men with PSA above 10 ng/mL, prostate cancer risk is determined by total PSA alone. The Total PSA value from this assay system is standardized against the equimolar PSA standard. The test result will be approximately 20% higher when compared to the WHO-standardized Total PSA (Siemens assay). Comparison of serial PSA results should be interpreted with this fact in mind. PSA was performed using the Zulema Whitney Immunoassay method. Values obtained from different assay methods cannot be used interchangeably. PSA levels, regardless of value, should not be interpreted as absolute evidence of the presence or absence of disease. THIS TEST WAS PERFORMED AT: [facility] [address] [address] CLAUS SEALS MD Free Prostate Spec Ag 1.1 UA CC w/rflx Micro + Cult Reviewed date:06/27/2023 12:29:00 PM Interpretation: Performing Lab:[facility], [address] [place] [phone] Notes/Report: ACCIDENT Urine, Clean Catch Color Urine Yellow Appearance Urine Clear PH 5.5 5.0-9.0 Glucose Urine UA Negative Negative mg/dL Urine Blood Negative Negative Specific [place] - Urine 1.015 1.005-1.025 Urine Protein Negative Neg-Trace mg/dL Urine Ketones Negative Negative mg/dL Nitrite Urine Negative Negative Leukocyte Esterase Urine Negative Negative Complete Blood Count Auto Di ff Reviewed date:06/27/2023 12:44:04 PM Interpretation: Performing Lab:[address], [place] [address] Notes/Report: White Blood Count 5.9 4.8-10.8 X10*3/uL Red Blood Count 4.21 4.60-5.80 X10*6/uL Hemoglobin 13.3 14.0-18.0 g/dl Hematocrit 39.3 42.0-52.0 % Mean Corpuscular Volume 93.3 80.0-98.0 fL Mean Corpuscular Hemoglobin 31.6 27.0-33.0 pg Mean Corpuscular HGB Conc 33.8 31.0-36.0 g/dl Red Cell Distribution Width 14.9 11.0-16.0 % Platelet Count 245 160-400 X10*3/uL Mean Platelet Volume 10.5 9.4-12.4 fL Neutrophils Percent Auto 55.9 45-73 % Imm Gran Pct Auto 0.3 0.0-0.4 % Lymphocytes Percent Auto 32.0 20-40 % Monocytes Percent Auto 8.7 2-11 % Eosinophils Percent Auto 2.6 0-4 % Basophils Percent Auto 0.5 0-2 % NRBC Pct Auto 0.0 0.0-0.2 /100WBC Neutrophils Absolute Auto 3.3 2.0-8.3 x10*3/u L Imm Gran Abs Auto 0.02 0.00-0.03 X10*3/uL Lymphocytes Absolute Auto 1.9 1.2-4.9 X10*3/u L Monocytes Absolute Auto 0.5 0.1-1.2 X10*3/uL Eosinophils Absolute Auto 0.2 0.0-0.4 X10*3/u L Basophils Absolute Auto 0.0 0.0-0.2 X10*3/uL NRBC Abs Auto 0.000 0.0-0.012 X10*3/uL Comprehensive Arimo. Panel Fa st Reviewed date:06/27/2023 08:08:48 PM Interpretation: Performing Lab:[facility], [address] [place] [phone] Notes/Report: Sodium 139 135-145 mmol/L Potassium 3.9 3.3-5.1 mmol/L Chloride 105 96-108 mmol/L Carbon Dioxide 27 22-29 mmol/L Anion Gap 11 12-20 Blood Urea Nitrogen 14 9-16 mg/dL Creatinine 1.00 0.5-1.4 mg/dL Estimated Glomerular Filt Rate > 60 NOTE: For -Cambod[place] individuals, multiply the result by 1.210. Chronic Kidney Disease: Estimated GFR < 60 mL/min/1.73m2 Severe Kidney Disease: Estimated GFR < 15 mL/min/1.73m2 Glucose Fasting 99 60-99 mg/dL Calcium 9.1 8.4-10.2 mg/dL Bilirubin Total 0.6 0.0-1.0 mg/dL Aspartate Amino Transferase 30 5-37 U/L Alanine Aminotransferase 24 0-40 U/L Total Protein 7.1 6.5-8.0 g/dL Albumin Level 3.9 3.5-5.0 g/dL Alkaline Phosphatase 81 39-117 U/L Lipid Panel Reviewed date:06/27/2023 12:28:19 PM Interpretation: Performing Lab:[address] [address] Notes/Report: Triglycerides 112 <150 mg/dL Desirable Triglyceride: less than 150 mg/dL Borderline High Triglyceride 150-199 mg/dL High Triglyceride: 200-499 mg/dL Very High Triglyceride: greater than or equal to 5OO mg/dL Cholesterol 192 <200 mg/dL Desirable Cholesterol: less than 200 mg/dL Borderline High Cholesterol: 200-239 mg/dL High Cholesterol: greater than 239 mg/dL LDL Cholesterol Calculated 128 <100 mg/dL Desirable LDL: less than 100 mg/dL Near Optimal/Above Optimal LDL: 110-129 mg/dL Borderline High LDL: 130-159 mg/dL High LDL: 160-189 mg/dL Very High LDL: greater than or equal to 190 mg/dL HDL Cholesterol 42 >40 mg/dL Desirable HDL: greater than 40 mg/dL Note: This HDL assay may give artificially low results in patients with liver disease. PSA,Total (Free>4and<10) Reviewed date:06/27/2023 12:28:09 PM Interpretation: Performing Lab:[address] [address] Notes/Report: PSA,Total (Free>4and<10) 4.74 0.00-4.00 ng/mL PSA methodology: Burgess Alinity i Chemiluminescent Microparticle Immunoassay (CMIA) Occult Blood, Stool, Guaiac Reviewed date:07/04/2023 10:58:46 AM Interpretation:Negative Performing Lab: Notes/Report: Negative Occult Blood, Stool, Guaiac Neg XR cervical spine 3V Reviewed date:07/09/2023 01:59:49 PM Interpretation: Performing Lab: Notes/Report: [address] [address] XRay Report Signed Patient: Joselito Hurd MR#: [id number] 4 : 1950 Acct:[id number] Age/Sex: 73 / M ADM Date: 07/04/23 Loc: HO.XRAY Attending Dr: Richard Castro MD Ordering Physician: Richard Castro MD Date of Service: 07/04/23 Procedure(s): XR cervical spine 3V Accession Number(s): [id number] cc: Richard Castro MD EXAMINATION: XR CERVICAL SPINE CLINICAL INFORMATION: Neck pain COMPARISON: None available. TECHNIQUE: 4 views of the cervical spine were obtained. FINDINGS: There are no prevertebral soft tissue or bony abnormalities demonstrated. No compression fractures or subluxations are identified. Vertebral bodies normally aligned. There is multilevel degenerative disc changes manifested by varying degrees of mild to moderate disc space narrowing and endplate osteophytes extending from C2-C3 through C6-C7. Suspect facet arthrosis and at least on the left side at C5-C6. Possible facet arthrosis at the C7-T1 level. Surrounding bone and soft tissues unremarkable. XR/XR cervical spine 3V IMPRESSION: 1. No acute abnormality. 2. Multilevel spondylosis of the cervical spine. Dictated By: Domingo Mckeon MD Signed By: <Electronically signed by Domingo Mckeon MD in OV> 07/06/23 1426 DD/ 1024 TD/TT: Sheep Sorter: CIELO REASON FOR REFERRAL Reason NECK PAIN Diagnosis 1 Neck pain (M54.2) Referral Organization Richard Castro MD Referring Provider First Name Richard Referring Provider Last Name Gloria Referring Provider Speciality Internal M edicine Referred Provider [facility] Referred Provider Specialty Physical The rapist General Notes Ana Broussard 01:41:52 PM EST > wants to gpo to [facility] in [facility] [phone] fax [phone], Ana Broussard 07/11/2023 01:49:14 PM EST > info faxed , Ana Broussard 07/11/2023 01:50:55 PM EST > patint will be calling to make his own appt Referral Priority Routine Reason acute pain of right shoulder Diagnosis [...] Referral Priority Routine Referral Appointment Date 12/26/2023 MEDICATIONS Medication SIG (Take, Route, Frequency, Duration) Notes Start Date End Date Status Valtrex 1 GM 1 tablet Orally 3 times a day for 7 days 01/13/2021 Not-Taking Propranolol HCl ER 80 MG TAKE ONE CAPSUL E BY MOUTH ONCE DAILY for 30 Active Tamsulosin HCl 0.4 MG 1 capsule Orally O nce a day Active predniSONE 10 MG 1 tablet with food o r milk Orally 4 tabs for 3 days,3tabs for 3 days, 2 tabs for 3 days, and 1 tab for 3 days for 14 days 01/23/2024 Active Amoxicillin 500 MG 1 capsule Orally every 8 hrs for 10 day(s) 05/15/2018 Not-Taking Cyclobenzaprine HCl 5 MG 1 tablet as nee ded Orally Three times a day for 10 days 02/27/2019 Not-Taking Ibuprofen 800 MG 1 tablet with food o r milk as needed Orally Three times a day for 30 days 02/27/2019 Not-Taking Tylenol Extra Strength 500 MG 3 tablets orally every 6 hrs Not-Taking Flecainide Acetate 150 MG 1 tablet Orall y every 12 hrs Active Co Q 10 100 MG 1 capsule with a nils l Orally Once a day Active Cartia XT 120 MG 1 capsule Orally Onc e a day for 30 day(s) Active Indomethacin 50 MG 1 capsule with food or milk Orally Three times a day for 10 days 10/07/2016 Not-Taking Zithromax Z-Khadar 250 MG 2 tablet on the f irst day, then 1 tablet daily for 4 days Orally Once a day for 5 day(s) 01/23/2024 Active Staxyn 10 MG 1 tablet on the tongue and allow to dissolve as needed Orally Once a day Not-Taking IMMUNIZATIONS Vaccine Route Administration Date Status Comme nts Flu Vaccine IM Intramuscular 06/22/2011 Administered Shingles IM Intramuscular 03/08/2014 Administered PPSV23 (Pnemovax) IM Intramuscular 01/28/2016 Administered Fluarix Quadrivalent IM Intramuscular 10/07/2016 Administe red Fluarix Quadrivalent IM Intramuscular 04/29/2017 Administe red Prevnar 13 IM Intramuscular 05/27/2017 Administered Fluarix Quadrivalent IM Intramuscular 05/15/2018 Administe red Influenza High Dose IM Intramuscular 04/22/2020 Administer ed SARS-COV-2 Pfizer Unknown 10/22/2020 Administered SARS-COV-2 Pfizer Unknown 11/12/2020 Administered Influenza High Dose IM Intramuscular 07/13/2021 Administer ed PPSV23 (Pnemovax) IM Intramuscular 08/20/2021 Administered SARS-COV-2 Pfizer Unknown 07/20/2021 Administered Fluarix Quadrivalent IM Intramuscular 05/06/2022 Administe red Influenza High Dose IM Intramuscular 06/27/2023 Administer ed SOCIAL HISTORY Tobacco Use: Social History Observation Description Date Details (start date - stop date) Former Smoker NA - NA Sex Assigned At : Social History Observation Description Sex Assigned At Unknown Tobacco Use/Smoking Question Answer Notes Patient is a former smoker How long has it been since y ou last smoked? > 10 years Additional Findings: Tobacco Non-User Cu rrent non-smoker, currently using no form of tobacco Alcohol Screen Question Answer Notes Did you have a drink contain ing alcohol in the past year? Yes How often did you have a dri nk containing alcohol in the past year? Monthly or less (1 point) How many drinks did you have on a typical day when you were drinking in the past year? 1 or 2 drinks (0 point) How often did you have 6 or more drinks on one occasion in the past year? Never (0 point) Points 1 Interpretation Negative PROBLEMS Problem Type ICD Code Onset Dates Problem Status W/U Status Risk SNOMED Code Notes Problem Neuropathy (G62.9) Active confirmed 386 812388 Problem Prostatism (N40.0) Active confirmed 114 88967 Problem Paroxysmal atrial fibrillation (I48.0) Active confirmed 579418655 Problem Essential tremor (G25.0) Active confirmed 704597367 Problem Erectile dysfunction due to arterial insufficiency (N52.01) Active confirmed 839154366867801 Problem Mitral valve disorde r (I05.9) Active confirmed 32697336 Problem Elevated LDL cholesterol level (E78.0) Active confirmed Pure hypercholesterolemia (478379725) Problem Non-rheumatic mitral regurgitation (I34.0) Active confirmed 575362558 Problem Pure hypercholesterolemia (E78.00) Active confirmed 785540501 Problem Elevated PSA (R97.20) Active confirmed 418095383 Problem 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) Active confirmed 191593275 Problem Hydronephrosis with 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) Active confirmed 55217533 Problem Elevated serum cholesterol (E78.9) Active confirmed 856542361 Problem 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 739577696 VITAL SIGNS Blood pressure diastolic 78 mm Hg 12/22/2023 chandra ght is up 8 pounds since 09-06-23 Height 70.50 in 01/23/2024 weight at home is 196 BP not taken at home no temp Blood pressure systolic 112 mm Hg 12/22/2023 weig ht is up 8 pounds since 09-06-23 Weight 196 lbs 01/23/2024 weight at home is 196 BP not taken at home no temp BMI 27.72 kg/m2 01/23/2024 weight at home is 196 BP not taken at home no temp Encounters Encounter Location Date Provider Diagnosis Richard Castro MD [address] [place], [place] [id number] 07/04/2023 Richard Castro Elevated PSA R97.20 ; Pure hypercholesterolemia E78.00 ; Prostatism N40.0 ; 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 C85.88 ; Neck pain M54.2 ; Essential tremor G25.0 ; Mixed conductive and sensorineural hearing loss of both ears H90.6 ; Paroxysmal atrial fibrillation I48.0 ; Colon cancer screening Z12.11 and Depression screening Z13.31 Richard Castro MD [address] [place] [id number] 05/09/2023 Richard Castro MD [address] [place] [id number] 05/02/2023 Richard Castro Elevated PSA R97.20 ; Pure hypercholesterolemia E78.00 and Elevated serum cholesterol E78.9 Richard Castro MD [address] [place] [id number] 06/27/2023 Richard Castro Elevated PSA R97.20 ; Pure hypercholesterolemia E78.00 and Encounter for immunization Z23 Richard Castro MD [address] [place] [id number] 09/06/2023 Richard Castro Neck pain M54.2 ; El evated PSA R97.20 and Paroxysmal atrial fibrillation I48.0 Richard Castro MD [address] [id number] 12/22/2023 Richard Castro Acute pain of right shoulder M25.511 Richard Castro MD [address] [place] [id number] 05/02/2023 Richard Castro COVID-19 U07.1 and G ross hematuria R31.0 Richard Castro MD [address] [id number] 01/23/2024 Richard Castro Bronchitis J40 ASSESSMENTS Encounter Date Diagnosis Assessment Notes Treatment Notes Treatment Clinical Notes 07/04/2023 Pure hypercholestero lemia (ICD-10 - E78.00) stable, will contiue current regiment 07/04/2023 Elevated PSA (ICD-10 - R97.20) 05/02/2023 Elevated PSA (ICD-10 - R97.20) 06/27/2023 Pure hypercholestero lemia (ICD-10 - E78.00) 06/27/2023 Elevated PSA (ICD-10 - R97.20) 09/06/2023 Neck pain (ICD-10 - M54.2) has resolved 09/06/2023 Elevated PSA (ICD-10 - R97.20) doing well with no change, will continue current regiment 12/22/2023 Acute pain of right shoulder (ICD-10 - M25.511) had rotator cuff repair in past is concerned that he reinjured it. 05/02/2023 Gross hematuria (ICD -10 - R31.0) has history of kidney stone. sounds as though he passed a stone. is going to see urologist next week 05/02/2023 COVID-19 (ICD-10 - U07.1) is improvi ng 01/23/2024 Bronchitis (ICD-10 - J40) morgan kelley verbalized understanding of medication and directions for use, 07/04/2023 Prostatism (ICD-10 - N40.0) sees urolologist/ has been higher 05/02/2023 Pure hypercholestero lemia (ICD-10 - E78.00) 06/27/2023 Encounter for immunization (ICD-10 - Z23) 09/06/2023 Paroxysmal atrial fibrillation (ICD-10 - I48.0) none since his cardioverisp, will continue current regiment 07/04/2023 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 (ICD-10 - C85.88) is followed by specialist 05/02/2023 Elevated serum cholesterol (ICD-10 - E78.9) 07/04/2023 Neck pain (ICD-10 - M54.2) is xrays are okay will refer to physical therapy/ XRAY PRINTED AND GIVEN TO PATIENT, REFER TO [facility] 07/04/2023 Essential tremor (IC D-10 - G25.0) stable, will continue to monitor 07/04/2023 Mixed conductive and sensorineural hearing loss of both ears (ICD-10 - H90.6) send to dr zabala/ DR DUKE OFFICE NO LONGER TAKES CALLS OR REFERRALS FOR OTHER OFFICESAS THEY WANT PATIENT TO CALL ,THE PATIENT HAS BEEN GIVEN THE NUMBER 07/04/2023 Paroxysmal atrial fibrillation (ICD-10 - I48.0) stable, will contiue current regiment 07/04/2023 Colon cancer screeni ng (ICD-10 - Z12.11) negative guaiac 07/04/2023 Depression screening (ICD-10 - Z13.31) negative screen PLAN OF TREATMENT Pending Test Test Name Order Date US RENAL BILATERAL 07/17/2020 US RENAL BILATERAL 07/24/2020 Future Test Test Name Order Date US RENAL BILATERAL 07/29/2021 Next Appt Details Provider Name:Richard Chatman ier, 07/03/2024 08:30:00 AM, [address] [facility], [place] [place] [address], [place], [place], [phone], Provider Name:Richard Chatman ier, 07/17/2024 01:30:00 PM, [address] [facility], [address], [place], [place], [phone], Insurance Providers Payer Name Payer Address Payer Phone Subscriber Number Group Number Insured Name Patient Relationship to Insured Coverage Start Date Coverage End Date MEDICARE NHIC [address] [place] [address] [id number] Joselito Hurd Self - patient is the insured MEDEX BCBS OF [facility] [id number] [place] [phone] [id number] Joselito Hurd Self - patient is the insured MEDICAL (GENERAL) HISTORY Medical History History ICD Code Colonoscopy - done 10/30/[address] Phillip moran due in 10 years Elevated LDL cholesterol level Elevated LDL cholesterol level biopsy of prostate neg 2008 History of syncope leticia score 1 in 2021 Surgical History Surgery Date(Month/Year) Right rotator cuff repair 05/2015 Bilateral Inguinal Hernia Re pair; 08/28/18 - RT Inguinal Hernia Repair (Dr. Daniel) 06/2017
--- OUTSIDE RECORDS SUMMARY | 2024-02-09 11:25 | XMS_ITS | Continuity of Care Document ---
Author Organization [facility] Address [address] [place] [address]- Care Team Providers Care Corporate Licensed Broker Name Role Phone Richard Castro MD Primary Care Physician [phone] Encounter [facility] Date(s): 11/20/19 - 11/30/19 [facility] [address] [place] [address]- [facility] Attending Physician: Vance Deleon Admitting Physician: AdmtrVance Referring Physician: Admtr, Ar8 Allergies, Adverse Reactions, Alerts Substance Reaction Severity Status NKA Active Medications aspirin 81 mg oral tablet 1 tablet = 81 mg, By Mouth, Daily, # 30 tablet, 0 Refills, Maintenance, Tablet Start Date: 08/06/11 Status: Ordered Cartia XT 120 mg/24 hours oral capsule, extended release 1 capsule = 120 mg, By Mouth, Daily, # 30 capsule, 2 Refills, Maintenance, 09/12/14 15:37:11, CR Capsule, 1 capsule By Mouth Daily Start Date: 09/12/14 Stop Date: 09/07/15 Status: Ordered Coenzyme Q10 By Mouth, 0 Refills, Maintenance Start Date: 02/24/12 Status: Ordered flecainide 50 mg oral tablet 1 tablet = 50 mg, By Mouth, Every 12 hours, # 60 tablet, 2 Refills, Maintenance, 09/12/14 15:38:05,Tablet, 1 tablet By Mouth Every 12 hours Start Date: 09/12/14 Status: Ordered propranolol 80 mg oral capsule, extended release 80 mg, 1, capsule, By Mouth, Daily, PRN, Takes for benign upper extremity tremors, Refills 0, Maintenance, Other, 05/02/18 16:04:35 EDT Start Date: 05/02/18 Status: Ordered Problem List Condition Effective Dates Status Health Status Inform ant Atrial Fibrillation(Confirmed) 08/05/11 Active Lymphoma(Confirmed) Active Social History Social History Type Response Smoking Status Former smoker entered on: 10/21/14 Sex
--- OUTSIDE RECORDS SUMMARY | 2024-02-09 11:25 | XMS_ITS | Continuity of Care Document ---
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
--- OUTSIDE RECORDS SUMMARY | 2024-02-09 11:25 | XMS_ITS | Continuity of Care Document ---
Author Organization [facility] Address [address] [place] [address]- Care Team Providers Care Hookman Name Role Phone Richard Castro MD Primary Care Physician [phone] Encounter [facility] [id number] Date(s): 11/09/19 - 02/14/20 [facility] [address] [place] [address]- [facility] Attending Physician: Tucker Miranda MD Admitting Physician: [...] 16:04:35 EDT Start Date: 05/02/18 Status: Ordered Vitamin D 8000 intl units/mL oral solution 0.05 mL = 400 International_Units, By Mouth, Daily, 0 Refills, Maintenance, 01/16/20 9:17:00 EDT Start Date: 01/16/20 Status: Ordered Problem List Condition Effective Dates Status Health Status Inform ant Atrial Fibrillation(Confirmed) 08/05/11 Active H/O Malignant melanoma(Confirmed) Active Lymphoma(Confirmed) Active Social History Social History Type Response Smoking Status Former smoker entered on: 10/21/14 Sex
--- OUTSIDE RECORDS SUMMARY | 2024-02-09 11:25 | XMS_ITS | Continuity of Care Document ---
Author Organization [facility] Address [address] [place] [address]- Care Team Providers Care Wood Craftsman Name Role Phone Richard Castro MD Primary Care Physician [phone] [place] [facility] [place] 08[place]14/20 [facility] [address] [place] [address]- Attending Physician: Vance Deleon Admitting Physician: AdmtrVance Referring Physician: Admtr, Ar8 Allergies, Adverse Reactions, Alerts Substance Reaction Severity Status NKA Active Medications Cartia XT 120 mg/24 hours oral capsule, [...]
[2024-02-09 11:28] VITALS: BMI 27.2
== END 2024-02-09 13:02 | disposition home or self-care (01) ==
LOC: HO.HOS 11:23
PROVIDERS: PCP Internal Medicine; Visit Provider Physician Assistant
DX: M25.511 Pain in right shoulder (principal); W19.XXXA Unspecified fall, initial encounter
CPT/HCPCS: 99213

== ENCOUNTER → 2024-02-09 11:23 | Outpatient (BNVA) | payer MEDICARE, SELFPAY | PROVIDERS: PCP Internal Medicine; Visit Provider Physician Assistant | DX: M25.511 Pain in right shoulder (principal); Z98.890 Other specified postprocedural states; Z91.81 History of falling | CPT/HCPCS: 99212 ==

== ENCOUNTER 2024-03-13 16:17 | Outpatient (REF) | payer MEDICARE, SELFPAY ==
--- NOTE | ~2024-03-13 | MR_ITS ---
EXAMINATION: MR SHOULDER WITHOUT CONTRAST, RIGHT CLINICAL INFORMATION: Reason for Exam Z98.890 - Other specified postprocedural states. COMPARISON: X-ray of the right shoulder December 2023. MRI of the right shoulder March 2015. TECHNIQUE: MRI of the shoulder without contrast was performed on a high-field scanner. FINDINGS: ROTATOR CUFF: There are postsurgical changes related to prior rotator cuff surgery with metallic artifact present within the humeral head greater tuberosity region. Supraspinatus and infraspinatus: There is a full-thickness tear/defect throughout the entire supraspinatus and at least the anterior half of the infraspinatus tendon. There is a small 8 mm cyst present within the intrasubstance portion of the retracted supraspinatus tendon. There is retraction of the torn portion of these tendons back to level of the glenoid resulting in a tendon gap measuring 5.7 cm transverse 4.3 cm AP. This results in cephalad subluxation of the humeral head nearly abutting the undersurface of the acromion. There is moderate atrophy and grade 2-3 fatty infiltration of both muscles. Teres minor normal. Subscapularis: A tiny intrasubstance increased signal compatible with tendinosis and/or minimal interstitial partial tearing. No transverse defect or tendon retraction. Muscle normal. BICEPS: Not clearly visualized compatible with complete tear and retraction. Biceps tear also noted on a prior examination. CORACOACROMIAL ARCH: The undersurface of the acromion is curved with no subacromial spur. There is xgpy-gd-tutsyrgc hypertrophic osteoarthritis of the acromioclavicular joint. LABRUM/CAPSULE: Normal. GLENOHUMERAL JOINT/MARROW: A 3 mm area of partial-thickness cartilage loss along the medial aspect of the humeral head not seen previously. Glenoid cartilage normal. Mild joint effusion and synovitis. MR/MR shoulder RT wo con IMPRESSION: 1. Postsurgical changes related to prior rotator cuff surgery. 2. Large full-thickness tear/recurrent tear involving the entire supraspinatus and at least the anterior half of the infraspinatus the tendon with associated atrophy and fatty infiltration of both muscles. 3. Minimal tendinosis and/or minimal interstitial partial tearing of the subscapularis. 4. Bwie-qm-ijbelezp hypertrophic osteoarthritis of the acromioclavicular joint. 5. Mild arthrosis of the glenohumeral joint.
== END 2024-03-13 16:18 | disposition home or self-care (01) ==
LOC: HO.MRI 16:17
PROVIDERS: PCP Internal Medicine; Visit Provider Physician Assistant
DX: Z98.890 Other specified postprocedural states (principal)
CPT/HCPCS: 73221

== ENCOUNTER 2024-03-30 10:34 | Outpatient (AMB) | payer MEDICARE, SELFPAY ==
--- NOTE | 2024-03-30 10:51 | MHC.OFFVIS ---
Intake Visit Reasons: right shoulder injection Intake Note: Joselito is a 73 year old left hand dominant male who presents today for a right shoulder injection. Patient reports he is feelign a bit better. However he feels a bit weak and sore in his shoulder. Allergies No Known Allergies [No Known Allergies*] Allergy (Verified 02/09/24 11:36) HPI HPI right shoulder injection: Details: 74-year-old right hand dominant male who presents in the office today for a follow-up of right shoulder pain and review of his MRI results. I last saw the patient in the office on 02/09/24 when he was referred for an MRI.? ? While in the office today, the patient reports he is feeling a bit better. However, he is feeling a bit weak and has soreness in the right shoulder. ? 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 Acute UTI Sepsis Calculus, renal Hydronephrosis Surgical History History of arthroscopy of left knee History of bilateral inguinal hernia repair (06/28/17) History of left inguinal hernia repair History of right inguinal hernia repair (08/28/18) Family History Father Throat cancer Mother Melanoma Leukemia Social History Household Members: Spouse and Children Housing: House Do you presently have visiting nurse or other home services: No Patient Tobacco Use Status: Former Tobacco user service: Yes Current occupational status: retired Review of Systems Const All systems reviewed & are unremarkable except as noted in HPI and below Physical Exam Const General: cooperative, healthy appearing and no acute distress Resp Effort & Inspection: normal respiratory effort and able to speak in complete sentences Cardio Rate: regular rate Peripheral pulses: Peripheral pulses 2+ throughout GI Palpation (GI): Soft to palpation Skin Lesions: no lesions Rashes: no rashes Extrem Other: Right shoulder: Forward flexion to 90 degrees with a great deal of pain. Abduction to 90 degrees. Pain with cross-body reach. External rotation to 45 degrees. Significant weakness with empty can. Negative drop arm. NVI.? Office Procedures Joint Injection/Aspiration Joint Injection/Aspiration Primary Site: right shoulder Prep: site was prepped using aseptic technique, ethochloride spray was applied and injection warnings given Injected: 80 mg of, DepoMedrol, with 8 mL of (2% plain lido) and in the subcromial space Approach Used: posterolateral Procedure: The patient tolerated the procedure well, but had some pain with the injection and there was some relief with the local anesthesia Coding 03764 - Large joint Procedure code (CPT) selection complete Assessment & Plan Assessment & Plan (1) History of repair of right rotator cuff: Code(s): Z98.890 - Other specified postprocedural states Category: Surgical (2) Shoulder joint painful on movement: Code(s): M25.519 - Pain in unspecified shoulder Category: Medical (3) Fall: Code(s): W19.XXXA - Unspecified fall, initial encounter Category: Medical Plan Mr. Hurd is a 74-year-old right hand dominant male who presents in the office today for a follow-up of right shoulder pain and review of his MRI results. I last saw the patient in the office on 02/09/24 when he was referred for an MRI.? ? While in the office today, the patient reports he is feeling a bit better. However, he is feeling a bit weak and has soreness in the right shoulder.? ? The patient was offered a cortisone injection in the right shoulder with 80 mg of Depo-Medrol. The patient was explained the risks, benefits, and alternatives to receiving this injection. After receiving consent for the injection, the patient had the procedure done while in the office today. The patient tolerated the procedure well with no complications.? ? ? Follow-up will be PRN, or sooner if needed. ? ? MRI of the right shoulder, obtained on 03/13/24, revealed:? 1. Postsurgical changes related to prior rotator cuff surgery ? 2. Large full-thickness tear/recurrent tear involving the entire supraspinatus and at least the anterior half of the infraspinatus the tendon with associated atrophy and fatty infiltration of both muscles.? 3. Minimal tendinosis and/or minimal interstitial partial tearing of the subscapularis. ? 4. Ikhz-vd-axamyvai hypertrophic osteoarthritis of the acromioclavicular joint.? 5. Mild arthrosis of the glenohumeral joint.? Patient Instructions: Scribed by Rupinder Leary biomedical analytical scientist, for Leslie Browning PA-C on 03/30/2024 at 10:40 am, EST.? Coding Level of Care Code Est Pt Level 3 (16975) Diagnoses History of repair of right rotator cuff Z98.890 Shoulder joint painful on movement M25.519 Fall W19.XXXA CPT Codes Coding - 74866 Large joint: 10880 - Large joint ([id number])
--- NOTE | 2024-03-30 11:04 | A.OFFVIS_ITS ---
Intake Visit Reasons: right shoulder injection Allergies No Known Allergies [No Known Allergies*] Allergy (Verified 02/09/24 11:36) HPI HPI right shoulder injection: Details: 74-year-old right hand dominant male who presents in the office today for a follow-up of right shoulder pain and review of his MRI results. I last saw the patient in the office on 02/09/24 when he was referred for an MRI.? ? While in the office today, the patient reports he is feeling a bit better. However, he is feeling a bit weak and has soreness in the right shoulder. ? 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 Acute UTI Sepsis Calculus, renal Hydronephrosis Surgical History History of arthroscopy of left knee History of bilateral inguinal hernia repair (06/28/17) History of left inguinal hernia repair History of right inguinal hernia repair (08/28/18) Family History Father Throat cancer Mother Melanoma Leukemia Social History Household Members: Spouse and Children Housing: House Do you presently have visiting nurse or other home services: No Patient Tobacco Use Status: Former Tobacco user service: Yes Current occupational status: retired Review of Systems Const All systems reviewed & are unremarkable except as noted in HPI and below Physical Exam Const General: cooperative, healthy appearing and no acute distress Resp Effort & Inspection: normal respiratory effort and able to speak in complete sentences Cardio Rate: regular rate Peripheral pulses: Peripheral pulses 2+ throughout GI Palpation (GI): Soft to palpation Skin Lesions: no lesions Rashes: no rashes Extrem Other: Right shoulder: Forward flexion to 90 degrees with a great deal of pain. Abduction to 90 degrees. Pain with cross-body reach. External rotation to 45 degrees. Significant weakness with empty can. Negative drop arm. NVI.? Office Procedures Joint Injection/Aspiration Joint Injection/Aspiration Primary Site: right shoulder Prep: site was prepped using aseptic technique, ethochloride spray was applied and injection warnings given Injected: 80 mg of, DepoMedrol, with 8 mL of (2% plain lido) and in the subcromial space Approach Used: posterolateral Procedure: The patient tolerated the procedure well, but had some pain with the injection and there was some relief with the local anesthesia Coding 76760 - Large joint Procedure code (CPT) selection complete Assessment & Plan Assessment & Plan (1) History of repair of right rotator cuff: Code(s): Z98.890 - Other specified postprocedural states Category: Surgical (2) Shoulder joint painful on movement: Code(s): M25.519 - Pain in unspecified shoulder Category: Medical (3) Fall: Code(s): W19.XXXA - Unspecified fall, initial encounter Category: Medical Plan Mr. Hurd is a 74-year-old right hand dominant male who presents in the office today for a follow-up of right shoulder pain and review of his MRI results. I last saw the patient in the office on 02/09/24 when he was referred for an MRI.? ? While in the office today, the patient reports he is feeling a bit better. However, he is feeling a bit weak and has soreness in the right shoulder.? ? The patient was offered a cortisone injection in the right shoulder with 80 mg of Depo-Medrol. The patient was explained the risks, benefits, and alternatives to receiving this injection. After receiving consent for the injection, the patient had the procedure done while in the office today. The patient tolerated the procedure well with no complications.? ? ? Follow-up will be PRN, or sooner if needed. ? ? MRI of the right shoulder, obtained on 03/13/24, revealed:? 1. Postsurgical changes related to prior rotator cuff surgery ? 2. Large full-thickness tear/recurrent tear involving the entire supraspinatus and at least the anterior half of the infraspinatus the tendon with associated atrophy and fatty infiltration of both muscles.? 3. Minimal tendinosis and/or minimal interstitial partial tearing of the subscapularis. ? 4. Cwff-sf-nqqogyyi hypertrophic osteoarthritis of the acromioclavicular joint.? 5. Mild arthrosis of the glenohumeral joint.? Patient Instructions: Scribed by Rupinder Leary medical assistant secretary, for Leslie Browning PA-C on 03/30/2024 at 10:40 am, EST.? Coding Level of Care Code Est Pt Level 3 (65403) Diagnoses History of repair of right rotator cuff Z98.890 Shoulder joint painful on movement M25.519 Fall W19.XXXA CPT Codes Coding - 46546 Large joint: 11688 - Large joint ([id number])
== END 2024-03-30 13:28 | disposition home or self-care (01) ==
PROVIDERS: PCP Internal Medicine; Visit Provider Physician Assistant
DX: M25.511 Pain in right shoulder (principal); W19.XXXA Unspecified fall, initial encounter
CPT/HCPCS: 20610; 99213

== ENCOUNTER → 2024-03-30 10:34 | Outpatient (BNVA) | payer MEDICARE, SELFPAY | PROVIDERS: PCP Internal Medicine; Visit Provider Physician Assistant | DX: M25.511 Pain in right shoulder (principal); Z91.81 History of falling | CPT/HCPCS: 20610; 99212; J1010 ==

== ENCOUNTER 2024-05-14 14:13 | Outpatient (AMB) | payer MEDICARE, SELFPAY ==
[2024-05-14 14:15] VITALS: BMI 27.2
--- NOTE | 2024-05-14 14:15 | MHC.OFFVIS ---
Vital Signs 05/14/24 14:15 Height 5 ft 11 in Weight 195 lb BMI 27.2 Intake Visit Reasons: OV-Right shoulder discuss surgery Intake Note: Joselito is a 74 year old male who presents today to discuss right shoulder surgery. Patient reports worsening right shoulder pain making it difficult to move his arm without discomfort. Patient has been taking aspirin and OTC pain medication without relief. Allergies No Known Allergies [No Known Allergies*] Allergy (Verified 05/14/24 14:22) HPI HPI OV-Right shoulder discuss surgery: Details: Joselito is a 74 year old male who presents today to discuss right shoulder surgery. Patient reports worsening right shoulder pain making it difficult to move his arm without discomfort. Patient has been taking aspirin and OTC pain medication without relief. I performed a right rotator cuff repair on him approximately 7 years ago and he did well until more recently when he injured himself in a fall approximately 6 months ago. Since then he has had difficulty abducting his arm and has pain. He has had injections and physical therapy with minimal benefit. 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 Acute UTI Sepsis Calculus, renal Hydronephrosis Surgical History History of arthroscopy of left knee History of bilateral inguinal hernia repair (06/28/17) History of left inguinal hernia repair History of right inguinal hernia repair (08/28/18) Family History Father Throat cancer Mother Melanoma Leukemia Social History Household Members: Spouse and Children Housing: House Do you presently have visiting nurse or other home services: No Patient Tobacco Use Status: Former Tobacco user service: Yes Current occupational status: retired Physical Exam Vital Signs: BMI result Body Mass Index 27.2 Extrem Other: On exam he has full range of motion. He has 4/5 strength with empty can testing. Results Reviewed Results Reviewed: I personally reviewed the MR images. MRI shows a large full-thickness recurrent tear of the entire supraspinatus and half of the infraspinatus with associated atrophy and fatty infiltration of both muscles. Assessment & Plan Assessment & Plan (1) Rotator cuff arthropathy of right shoulder: Code(s): M12.811 - Other specific arthropathies, not elsewhere classified, right shoulder Category: Medical Plan: This is a 74-year-old gentleman who is under the impression that he has acute rotator cuff injury when in fact I believe he has rotator cuff arthropathy that is chronic. He is improving slightly and with activity modification his pain seems to be improving. His motion is good and he is not particularly weak. I discussed treatment options including and really limited to shoulder arthroplasty. There is no hurry and I would like to see him continue to improve. If he fails to continue to improve and continues to worsen worsened we can talk about replacement for right now I think he is recovering from the possible re-injury 6 months ago and I do not think there is any role for acute arthroscopic intervention. If any surgery should be done it would be a reverse total shoulder arthroplasty. I explained this to him. He understands. He will see me back in 3 months. Coding Level of Care Code Est Pt Level 4 (46050) Diagnoses Rotator cuff arthropathy of right shoulder M12.811
--- OUTSIDE RECORDS SUMMARY | 2024-05-14 14:19 | XMS_ITS ---
Author Organization Richard Castro MD Address [address] [place], [place] [id number] Care Team Providers Care Conditioner Tumbler Operator Name Role Phone Richard Castro Primary Care Provider ALLERGIES No Known Allergies REASON FOR REFERRAL Reason acute pain of right shoulder Diagnosis [...] fell yesterday.right shoulder pain, NO Covid symptoms MEDICATIONS Medication SIG (Take, Route, Frequency, Duration) [...] e a day for 30 day(s) Active VITAL SIGNS BMI 28.85 kg/m2 12/22/2023 Blood pressure systolic 112 mm Hg 12/22/19 24 Blood pressure diastolic 78 mm Hg 024 Height 70.50 in 12/22/2023 Weight 204 lbs 12/22/2023 weight is up 8 pounds since 09-06-23 Encounters Encounter Location Date Provider Diagnosis Richard Castro MD [address] [place] [address] Drive [address] [place], [place] [phone] 12/22/2023 Richard Castro Acute pain of right shoulder M25.511 ASSESSMENTS Encounter Date Diagnosis Assessment Notes Treatment Notes Treatment Clinical Notes 12/22/2023 Acute pain of right shoulder (ICD-10 - M25.511) had rotator cuff repair in past is concerned that he reinjured it. PLAN OF TREATMENT Treatment Notes Assessment Notes Acute pain of right shoulder had rotator cuff repair in past is concerned that he reinjured it. Referrals Referral Date Details 12/26/2023 12/26/2023, acute pa in of right shoulder , Clint Thomas Next Appt Details Provider Name:Richard Chatman ier, 07/03/2024 08:30:00 AM, [address], [address], [place], [place], [phone], Provider Name:Richard Chatman ier, 07/17/2024 01:30:00 PM, [address], [address], [place], [place], [phone], Progress Notes * Examination Category Sub-Category Detail Notes General Examination GENERAL APPEARANCE: alert, w ell hydrated, in no distress MUSCULOSKELETAL: abnormal marked tend ernss to movement of shoulderis able to passively lift arm above head History and Physical Notes * HPI (History of Present Illness) Category Sub-Category Detail Notes Fall Risk History Have you had any falls with injury in the past year?: Yes fell bringing in plants at his daughter's house missed a step landed on right side Consultation Request Notes Referral Date Referring Provider Referred Provider Not es 12/22/2023 Richard Castro Noah acute pain of right shoulder
--- OUTSIDE RECORDS SUMMARY | 2024-05-14 14:19 | XMS_ITS ---
Author Organization Richard Castro MD Address [address] [place], [place] [id number] Care Team Providers Care Buffer Copper Name Role Phone Richard Castro Primary Care Provider ALLERGIES No Known Allergies REASON FOR VISIT 2 MO F/U, NO Covid symptoms MEDICATIONS Medication SIG (Take, Route, Frequency, Duration) Notes Start Date End Date Status Flecainide Acetate 150 MG 1 tablet Orall y every 12 hrs Active Tamsulosin HCl 0.4 MG 1 capsule Orally O nce a day Active Propranolol HCl ER 80 MG TAKE ONE CAPSUL E BY MOUTH ONCE DAILY Active Cartia XT 120 MG 1 capsule [...] 8 hrs for 10 day(s) 05/15/2018 Not-Taking Staxyn 10 MG 1 tablet on the tongue and allow to dissolve as needed Orally Once a day Not-Taking Tylenol Extra Strength 500 MG 3 tablets orally every 6 hrs Not-Taking Ibuprofen 800 MG 1 tablet with food o r milk as needed Orally Three times a day for 30 days 02/27/2019 Not-Taking Co Q 10 100 MG 1 capsule with a nils l Orally Once a day Active Valtrex 1 GM 1 tablet Orally 3 times a day for 7 days 01/13/2021 Not-Taking VITAL SIGNS BMI 27.72 kg/m2 09/06/2023 Blood pressure systolic 118 mm Hg 09/06/19 24 Blood pressure diastolic 80 mm Hg 024 Height 70.50 in 09/06/2023 Weight 196 lbs 09/06/2023 Encounters Encounter Location Date Provider Diagnosis Richard Castro MD [address] [place], [place] [phone] 09/06/2023 Richard Castro Neck pain M54.2 ; Elevated PSA R97.20 and Paroxysmal atrial fibrillation I48.0 ASSESSMENTS Encounter Date Diagnosis Assessment Notes Treatment Notes Treatment Clinical Notes 09/06/2023 Neck pain (ICD-10 - M54.2) has resolved 09/06/2023 Elevated PSA (ICD-10 - R97.20) doing well with no change, will continue current regiment 09/06/2023 Paroxysmal atrial fibrillation (ICD-10 - I48.0) none since his cardioverisp, will continue current regiment PLAN OF TREATMENT Medication Medication Name Sig Start Date Stop Date Notes Flecainide Acetate 150 MG 1 tablet Orally every 12 hrs Tamsulosin HCl 0.4 MG 1 capsule Orally Once a day Propranolol HCl ER 80 MG TAKE ONE CAPSUL E BY MOUTH ONCE DAILY Treatment Notes Assessment Notes Neck pain has resolved Elevated PSA doing well with no c hange, will continue current regiment Paroxysmal atrial fibrillation none sinc e his cardioverisp, will continue current regiment Next Appt Details Provider Name:Richard escamilla, 07/03/2024 08:30:00 AM, [address], [address], [place], [place], [phone], Provider Name:Richard Jose Grettaaneudy francine, 07/17/2024 01:30:00 PM, [address], [address], [place], [place], [phone], Progress Notes * Examination Category Sub-Category Detail Notes General Examination GENERAL APPEARANCE: alert, w ell hydrated, in no distress , male HEAD: normocephalic HEART: no murmurs, rubs, ga llops, regular rate and rhythm LUNGS: no wheezes, rales, r honchi, good air movement, clear to auscultation bilaterally SKIN: good turgor
--- OUTSIDE RECORDS SUMMARY | 2024-05-14 14:19 | XMS_ITS | Patient Health Record ---
Author Organization Richard Castro MD Address [address] [place], [place] [id number] Care Team Providers Care Corporate Accountant Name Role Phone Richard Castro Primary Care Provider [phone] ALLERGIES No Known Allergies RESULTS Component Value Reference Range Notes PSA Free and Total Reviewed date:06/28/2023 12:08:39 PM Interpretation: Performing Lab:[facility], [address] [place] [phone] Notes/Report: Prostate Specific Ag Total 5.0 < [...] 30 93 9 (3)Catalona et al.:MICHI 277: 6055-5781 (1996) (4)Catalona et al.:MICHI 279: 0532-3281 (1997) (x)These estimates vary with age, ethnicity, [...] mind. PSA was performed using the [employer] Immunoassay method. Values obtained from different assay methods cannot be used interchangeably. PSA levels, regardless of value, should not be interpreted as absolute evidence of the presence or absence of disease. THIS TEST WAS PERFORMED AT: [facility] [address] [phone] CLAUS SEALS MD Free Prostate Spec Ag 1.1 UA CC w/rflx Micro + Cult Reviewed date:06/27/2023 12:29:00 PM Interpretation: Performing Lab:[facility], [address] [place] [phone] Notes/Report: ACCIDENT Urine, Clean Catch Color Urine Yellow Appearance Urine Clear PH 5.5 5.0-9.0 Glucose Urine UA Negative Negative mg/dL Urine Blood Negative Negative Specific [place] - Urine 1.015 1.005-1.025 Urine Protein Negative Neg-Trace mg/dL Urine Ketones Negative Negative mg/dL Nitrite Urine Negative Negative Leukocyte Esterase Urine Negative Negative Complete Blood Count Auto Di ff Reviewed date:06/27/2023 12:44:04 PM Interpretation: Performing Lab:[facility], [address] [place] [phone] Notes/Report: White Blood Count 5.9 4.8-10.8 X10*3/uL [...] NRBC Abs Auto 0.000 0.0-0.012 X10*3/uL Comprehensive Ward. Panel Fa st Reviewed date:06/27/2023 08:08:48 PM Interpretation: Performing Lab:[facility], [address] [place] [phone] Notes/Report: Sodium 139 135-145 mmol/L Potassium 3.9 3.3-5.1 mmol/L Chloride 105 96-108 mmol/L Carbon Dioxide 27 22-29 mmol/L Anion Gap 11 12-20 Blood Urea Nitrogen 14 9-16 mg/dL Creatinine 1.00 0.5-1.4 mg/dL Estimated Glomerular Filt Rate > 60 NOTE: For -Dutch individuals, multiply the result by 1.210. Chronic [...] Panel Reviewed date:06/27/2023 12:28:19 PM Interpretation: Performing Lab:[address] [phone] Notes/Report: Triglycerides 112 <150 mg/dL Desirable Triglyceride: [...] (Free>4and<10) Reviewed date:06/27/2023 12:28:09 PM Interpretation: Performing Lab:[address] [address] Notes/Report: PSA,Total (Free>4and<10) 4.74 0.00-4.00 ng/mL PSA methodology: [employer] Al[employer] i Chemiluminescent Microparticle Immunoassay (CMIA) Occult Blood, Stool, Guaiac Reviewed date:07/04/2023 10:58:46 AM Interpretation:Negative Performing Lab: Notes/Report: Negative Occult Blood, Stool, Guaiac Neg XR cervical spine 3V Reviewed date:07/09/2023 01:59:49 PM Interpretation: Performing Lab: Notes/Report: [address] [address] XRay Report Signed Patient: Joselito Hurd MR#: [id number] 4 : 1950 Acct:[id number] Age/Sex: 73 / M ADM Date: 07/04/23 Loc: HO.XRAY Attending Dr: Richard Castro MD Ordering Physician: Richard Castro MD Date of Service: 07/04/23 Procedure(s): XR cervical spine 3V Accession Number(s): [id number] cc: Richard Castro MD EXAMINATION: XR CERVICAL [...] in OV> 07/06/23 1426 DD/ 1024 TD/TT: Quiller Tender: CIELO MR shoulder RT wo con Reviewed date:03/19/2024 02:09:45 PM Interpretation: Performing Lab: Notes/Report: [address] [address] Magnetic Resonance Report Signed Patient: Joselito Hurd MR#: [id number] 4 : 1950 Acct:[id number] Age/Sex: 74 / M ADM Date: 03/13/24 Loc: HO.MRI Attending Dr: Leslie Browning PA-C Ordering Physician: Leslie Browning PA-C Date of Service: 03/13/24 Procedure(s): MR shoulder RT wo con Accession Number(s): [id number] cc: Richard Castro MD; Leslie Browning PA-C EXAMINATION: MR SHOULDER WITHOUT CONTRAST, RIGHT CLINICAL INFORMATION: Reason for Exam Z98.890 - Other specified postprocedural states. COMPARISON: X-ray of the right shoulder December 2023. MRI of the right shoulder March 2015. TECHNIQUE: MRI of the shoulder without contrast was performed on a high-field scanner. FINDINGS: ROTATOR CUFF: There are postsurgical changes related to prior rotator cuff surgery with metallic artifact present within the humeral head greater tuberosity region. Supraspinatus and infraspinatus: There is a full-thickness tear/defect throughout the entire supraspinatus and at least the anterior half of the infraspinatus tendon. There is a small 8 mm cyst present within the intrasubstance portion of the retracted supraspinatus tendon. There is retraction of the torn portion of these tendons back to level of the glenoid resulting in a tendon gap measuring 5.7 cm transverse 4.3 cm AP. This results in cephalad subluxation of the humeral head nearly abutting the undersurface of the acromion. There is moderate atrophy and grade 2-3 fatty infiltration of both muscles. Teres minor normal. Subscapularis: A tiny intrasubstance increased signal compatible with tendinosis and/or minimal interstitial partial tearing. No transverse defect or tendon retraction. Muscle normal. BICEPS: Not clearly visualized compatible with complete tear and retraction. Biceps tear also noted on a prior examination. CORACOACROMIAL ARCH: The undersurface of the acromion is curved with no subacromial spur. There is pzbc-hi-yatzrhwg hypertrophic osteoarthritis of the acromioclavicular joint. LABRUM/CAPSULE: Normal. GLENOHUMERAL JOINT/MARROW: A 3 mm area of partial-thickness cartilage loss along the medial aspect of the humeral head not seen previously. Glenoid cartilage normal. Mild joint effusion and synovitis. MR/MR shoulder RT wo con IMPRESSION: 1. Postsurgical changes related to prior rotator cuff surgery. 2. Large full-thickness tear/recurrent tear involving the entire supraspinatus and at least the anterior half of the infraspinatus the tendon with associated atrophy and fatty infiltration of both muscles. 3. Minimal tendinosis and/or minimal interstitial partial tearing of the subscapularis. 4. Czlr-ps-mqamvrjm hypertrophic osteoarthritis of the acromioclavicular joint. 5. Mild arthrosis of the glenohumeral joint. Dictated By: Domingo Mckeon MD Signed By: <Electronically signed by Domingo Mkceon MD in OV> 03/19/24 0741 DD/ 174 TD/TT: Quiller Tender: CIELO REASON FOR REFERRAL Reason NECK PAIN Diagnosis 1 Neck pain (M54.2) Referral Organization Richard Castro MD Referring Provider First Name Richard Referring Provider Last Name Gloria Referring Provider Speciality Internal M edicine Referred Provider EDU, P.T. Referred Provider Specialty Physical The rapist General Notes Ana Broussard 01:41:52 PM EST > wants to gpo to [facility] in [facility] p [phone] fax [phone] Annette 07/11/2023 01:49:14 PM EST > info faxed Aarti Annette 07/11/2023 01:50:55 PM EST > patint will [...] Notes Problem Neuropathy (G62.9) Active confirmed 386 966821 Problem Prostatism (N40.0) Active confirmed 114 17302 Problem Paroxysmal atrial fibrillation (I48.0) Active confirmed 526782958 Problem Essential tremor (G25.0) Active confirmed 207321066 Problem Erectile dysfunction due to arterial insufficiency (N52.01) Active confirmed 468851704538919 Problem Mitral valve disorde r (I05.9) Active confirmed 95167625 Problem Elevated LDL cholesterol level (E78.0) Active confirmed Pure hypercholesterolemia (054185833) Problem Non-rheumatic mitral regurgitation (I34.0) Active confirmed 711720681 Problem Pure hypercholesterolemia (E78.00) Active confirmed 652305034 Problem Elevated PSA (R97.20) Active confirmed 198193087 Problem 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) Active confirmed 325735922 Problem Hydronephrosis with 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) Active confirmed 09680636 Problem Elevated serum cholesterol (E78.9) Active confirmed 416872183 Problem 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 464757111 VITAL SIGNS Blood pressure diastolic 78 mm [...] Date Provider Diagnosis Richard Castro MD [address] [place] [id number] 07/04/2023 Richard Castro Elevated PSA R97.20 ; [...] Richard Castro MD [address] [place] [phone] 06/27/2023 Richard Castro Elevated PSA R97.20 ; Pure hypercholesterolemia E78.00 and Encounter for immunization Z23 Richard Castro MD [address] [place] [id number] 09/06/2023 Richard Castro Neck pain M54.2 ; El evated PSA R97.20 and Paroxysmal atrial fibrillation I48.0 Richard Castro MD [address] [place] [id number] 12/22/2023 Richard Castro Acute pain of right shoulder M25.511 Richard Castro MD [address] [place] [id number] 01/23/2024 Richard Castro Bronchitis J40 ASSESSMENTS Encounter Date Diagnosis Assessment Notes Treatment Notes Treatment Clinical Notes 07/04/2023 Pure hypercholestero lemia (ICD-10 - E78.00) stable, will contiue current regiment 07/04/2023 Elevated PSA (ICD-10 - R97.20) 06/27/2023 Pure hypercholestero lemia (ICD-10 - E78.00) 06/27/2023 Elevated PSA (ICD-10 - R97.20) 09/06/2023 Neck pain (ICD-10 - M54.2) has resolved 09/06/2023 Elevated PSA (ICD-10 - R97.20) doing well with no change, will continue current regiment 12/22/2023 Acute pain of right shoulder (ICD-10 - M25.511) had rotator cuff repair in past is concerned that he reinjured it. 01/23/2024 Bronchitis (ICD-10 - J40) morgan kelley verbalized understanding of medication and directions for use, 07/04/2023 Prostatism (ICD-10 - N40.0) sees urolologist/ has been higher 06/27/2023 Encounter for immunization (ICD-10 - Z23) 09/06/2023 Paroxysmal atrial fibrillation (ICD-10 - I48.0) none since his cardioverisp, will continue current regiment 07/04/2023 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 (ICD-10 - C85.88) is followed by specialist 07/04/2023 Neck pain (ICD-10 - M54.2) is xrays are okay will refer to physical therapy/ XRAY PRINTED AND GIVEN TO PATIENT, [place] [facility] [place] 07/04/2023 Essential tremor (IC D-10 [...] Name:Richard Chatman ier, 07/03/2024 08:30:00 AM, [address] [facility], [address], [place], [place], [phone], Provider Name:Richard Chatman ier, 07/17/2024 01:30:00 PM, [address] [facility], [address], [place], [place], [phone], Insurance Providers Payer Name Payer Address Payer Phone Subscriber Number Group Number Insured Name Patient Relationship to Insured Coverage Start Date Coverage End Date MEDICARE NHIC [place] [address] [place] [address] [id number] Joselito Hurd Self - patient is the insured MEDEX BCBS OF [facility] [id number] [place] [address] [id number] Joselito Hurd Self - patient is the [...]
--- OUTSIDE RECORDS SUMMARY | 2024-05-14 14:19 | XMS_ITS ---
Author Organization Richard Castro MD Address [address] [place], [place] [phone] Care Team Providers Care Assistant Department Manager Name Role Phone Richard Castro Primary Care Provider [phone] ALLERGIES No Known Allergies REASON FOR VISIT COUGHING ONE WEEK, WHEEZING and fatigue, CELL PHONE [phone], WILL TEST FOR COVID THIS MORN, tested for Covid this AM negative MEDICATIONS Medication SIG (Take, Route, Frequency, Duration) [...] a day for 5 day(s) 01/23/2024 Active VITAL SIGNS BMI 27.72 kg/m2 01/23/2024 Height 70.50 in 01/23/2024 Weight 196 lbs 01/23/2024 weight at home is 196 BP not taken at home no temp Encounters Encounter Location Date Provider Diagnosis Richard Castro MD [address] [place] [address] [place] [phone] 01/23/2024 Richard Castro Bronchitis J40 ASSESSMENTS Encounter Date Diagnosis Assessment Notes Treatment Notes Treatment Clinical Notes 01/23/2024 Bronchitis (ICD-10 - J40) patient verbalized understanding of medication and directions for use, PLAN OF TREATMENT Medication Medication Name Sig [...] Name:Richard Chatman ier, 07/03/2024 08:30:00 AM, [address] [facility], [address], [place], [place], [phone], Provider Name:Richard Chatman ier, 07/17/2024 01:30:00 PM, [address] [facility], [address], [place], [place], [phone], Progress Notes * Examination Category Sub-Category Detail Notes General Examination GENERAL APPEARANCE: alert, w ell hydrated, in no distress HEAD: normocephalic History and Physical Notes * HPI (History of Present Illness) Category Sub-Category Detail Notes Symptom(s) Telehealth Location of prov ider rendering services:: [address] [place] [address], [address] Location of patient:: at address listed in [...]
== END 2024-05-14 14:43 | disposition home or self-care (01) ==
LOC: HO.HOS 14:13
PROVIDERS: PCP Internal Medicine; Visit Provider Orthopaedic Surgery
DX: M12.811 Other specific arthropathies, not elsewhere classified, right shoulder (principal)
CPT/HCPCS: 99214

== ENCOUNTER → 2024-05-14 14:13 | Outpatient (BNVA) | payer MEDICARE, SELFPAY | PROVIDERS: PCP Internal Medicine; Visit Provider Orthopaedic Surgery | DX: M12.811 Other specific arthropathies, not elsewhere classified, right shoulder (principal) | CPT/HCPCS: 99212 ==

== ENCOUNTER 2024-07-03 12:03 | Outpatient (REF) | payer MEDICARE, SELFPAY ==
[2024-07-03 12:06] LABS: MANUAL DIFF FLAG NO
[2024-07-03 12:34] LABS: Appearance Urine Clear; Basophils Percent Auto 0.5 % (0-2); Color Urine Yellow; Eosinophils Absolute Auto 0.2 X10*3/uL (0.0-0.4); Eosinophils Percent Auto 2.5 % (0-4); Glucose Urine UA Negative (Negative); Hematocrit 39.1 % (42.0-52.0); Hemoglobin 13.3 g/dl (14.0-18.0); Imm Gran Abs Auto 0.02 X10*3/uL (0.00-0.03); Imm Gran Pct Auto 0.3 % (0.0-0.4); Leukocyte Esterase Urine Negative (Negative); Lymphocytes Absolute Auto 1.8 X10*3/uL (1.2-4.9); Lymphocytes Percent Auto 23.5 % (20-40); Mean Corpuscular Volume 94.2 fL (80.0-98.0); Mean Platelet Volume 10.2 fL (9.4-12.4); Monocytes Absolute Auto 0.6 X10*3/uL (0.1-1.2); Monocytes Percent Auto 8.3 % (2-11); Neutrophils Absolute Auto 4.9 x10*3/uL (2.0-8.3); Neutrophils Percent Auto 64.9 % (45-73); Nitrite Urine Negative (Negative); PH 5.5 (5.0-9.0); Platelet Count 248 X10*3/uL (160-400); Red Blood Count 4.15 X10*6/uL (4.60-5.80); Red Cell Distribution Width 14.9 % (11.0-16.0); Specific Gravity - Urine 1.015 (1.005-1.025); Urine Blood Negative (Negative); Urine Ketones Negative (Negative); Urine Protein Negative (Neg-Trace); White Blood Count 7.5 X10*3/uL (4.8-10.8)
[2024-07-03 12:38] LABS: Bacteria Urine None Seen (None Seen); Hyaline Casts Urine 0-2 /LPF (0-2); RBC Urine 0-2 /HPF (0-2); Squamous Epithelial Cell Urine 0-2 /HPF (0-2); WBC Urine 0-5 /HPF (0-5)
[2024-07-03 13:04] LABS: Albumin Level 3.8 g/dL (3.5-5.0); Alkaline Phosphatase 89 U/L (39-117); Anion Gap 8 (12-20); Aspartate Amino Transferase 41 U/L (5-37); Bilirubin Total 0.7 mg/dL (0.0-1.0); Blood Urea Nitrogen 17 mg/dL (9-16); Calcium 8.9 mg/dL (8.4-10.2); Carbon Dioxide 26 mmol/L (22-29); Chloride 108 mmol/L (96-108); Cholesterol 201 mg/dL (<200); Estimated Glomerular Filt Rate > 60; Glucose Fasting 95 mg/dL (60-99); HDL Cholesterol 42 mg/dL (>40); LDL Cholesterol Calculated 140 mg/dL (<100); Potassium 4.1 mmol/L (3.3-5.1); Sodium 138 mmol/L (135-145); Total Protein 6.9 g/dL (6.5-8.0); Triglycerides 98 mg/dL (<150)
[2024-07-03 13:08] LABS: PSA,Total (Free>4and<10) 5.94 ng/mL (0.00-4.00)
[2024-07-03 13:15] LABS: Alanine Aminotransferase 29 U/L (0-40)
[2024-07-04 11:04] LABS: Free Prostate Spec Ag 1.3 ng/mL; Percent Free Prostate Spec Ag 21 % (calc) (>25); Prostate Specific Ag Total 6.2 ng/mL (< OR = 4.0)
== END 2024-07-03 12:04 | disposition home or self-care (01) ==
LOC: HO.LNP 12:03
PROVIDERS: Visit Provider Internal Medicine
DX: R97.20 Elevated prostate specific antigen [PSA] (principal); E78.00 Pure hypercholesterolemia, unspecified; Z12.5 Encounter for screening for malignant neoplasm of prostate
CPT/HCPCS: 80053; 80061; 81001; 84153; 84154; 85025

== ENCOUNTER 2024-10-19 11:50 | Outpatient (AMB) | payer MEDICARE, SELFPAY ==
--- NOTE | 2024-10-19 11:54 | A.OFFVIS_ITS ---
Vital Signs 10/19/24 11:59 Height 5 ft 11 in Weight 195 lb BMI 27.2 Intake Visit Reasons: OV- RT shoulder pain Intake Note: Joselito is a 74 year old left hand dominant male who presents today for a follow up of his Right Shoulder. At his last visit in April of 2024 we discussed the role of TSA but were going to hold off and see if his symptoms improved. Patient reports no change in symptoms. States he is unable to lift and has difficulty sleeping at night. He would like to discuss proceeding with surgery. Allergies No Known Allergies [No Known Allergies*] Allergy (Verified 10/19/24 11:59) HPI HPI OV- RT shoulder pain: Details: Joselito is a 74-year-old gentleman with rotator cuff arthropathy of the right shoulder. He was seen approximately 6 months ago. At that point he had reasonable motion but he actually who seems to have gotten worse. He has difficulty abducting his arm and feels like he can not engage in daily activities without difficulty. He has known rotator cuff arthropathy of the right shoulder. He would like to be able to work at home and be active. He would like to be able to eat and dress without difficulty. [facility] Medical History (Updated 05/20/24 @ 15:38 by Clint Thomas MD) Non-Hodgkin lymphoma Afib Hydronephrosis with renal and ureteral calculous obstruction Acute UTI Sepsis Calculus, renal Hydronephrosis Surgical History History of left inguinal hernia repair History of right inguinal hernia repair (08/28/18) History of bilateral inguinal hernia repair (06/28/17) History of arthroscopy of left knee Family History Father Throat cancer Mother Melanoma Leukemia Social History Household Members: Spouse and Children Housing: House Do you presently have visiting nurse or other home services: No Patient Tobacco Use Status: Former Tobacco user service: Yes Current occupational status: retired Physical Exam Vital Signs: BMI result Body Mass Index 27.2 Const General: cooperative, healthy appearing, no acute distress and well groomed Orientation/consciousness: oriented to person and oriented to place HEENT Head: Yes normal to inspection, Yes normocephalic and Yes atraumatic Eyes General: appearance normal, both eyes and all related structures Alignment and Position: alignment normal Conjunctivae: conjunctivae normal EOM: EOMs intact bilaterally Neck Neck: Yes normal visual inspection and Yes trachea midline Resp Other: No rerpiratory distress Effort & Inspection: normal respiratory effort and able to speak in complete sentences Cardio Other: Palpable radial pulse with no appreciable rythmic abnormalities GI Other: No abdominal distension Back/Spine/Pelvis Cervical Spine: normal cervical lordosis and cervical ROM normal Skin General skin exam: no rashes or lesions noted Neuro General: oriented to person, oriented to place and gait normal Extrem Other: On exam he has full passive range of motion When controlling for scapular recruitment he has 45 degrees of active abduction at best. There is recruitment required to get his hand to his mouth. He has a intact deltoid and sensation intact to light touch over the lateral aspect of the deltoid. 4-/5 empty can Results Reviewed Results Reviewed: I personally reviewed the MR images. 1. Postsurgical changes related to prior rotator cuff surgery. 2. Large full-thickness tear/recurrent tear involving the entire supraspinatus and at least the anterior half of the infraspinatus the tendon with associated atrophy and fatty infiltration of both muscles. 3. Minimal tendinosis and/or minimal interstitial partial tearing of the subscapularis. 4. [id number] hypertrophic osteoarthritis of the acromioclavicular joint. 5. Mild arthrosis of the glenohumeral joint. Assessment & Plan Assessment & Plan (1) Rotator cuff arthropathy of right shoulder: Code(s): M12.811 - Other specific arthropathies, not elsewhere classified, right shoulder Category: Medical Plan: This is a 74-year-old with chronic rotator cuff arthropathy of the right shoulder. He is unable to engage in daily activities without difficulty. His arm gets tired and sore and bothers him and he is frustrated that he can not do more. I reviewed his imaging with him and he has high-riding humeral head with rotator cuff arthropathy. I performed a rotator cuff repair on him in 2014. I discussed treatment options at this point with him. They are continued injections and activity modification versus surgery. The only surgery indicated at this point in time is a reverse total shoulder arthroplasty. I reviewed with him in detail this surgery. I discussed the risks, benefits and alternatives to surgery including, but not limited to, the risk of stiffness, infection, fracture, dislocation, nerve injury. I also explained the medical risk factors associated with surgery including blood clots cardiopulmonary complications among others. He expressed understanding and we will proceed forward accordingly. Coding Level of Care Code Est Pt Level 4 (10532) Diagnoses Rotator cuff arthropathy of right shoulder M12.811
[2024-10-19 11:59] VITALS: BMI 27.2
--- OUTSIDE RECORDS SUMMARY | 2024-10-19 13:43 | XMS_ITS ---
Author Organization Richard Castro MD Address [address] [place], [place] [phone] Care Team Providers Care Rabbit Fancier Name Role Phone Richard Castro Primary Care Provider Results Component Value Reference Range Notes Complete Blood Count Auto Di ff Reviewed date:07/03/2024 08:00:30 PM Interpretation: Performing Lab:[facility], [address] [place] [phone] Notes/Report: White Blood Count 7.5 4.8-10.8 X10*3/uL [...] NRBC Abs Auto 0.000 0.0-0.012 X10*3/uL Comprehensive [place]. Panel Fa st Reviewed date:07/03/2024 08:16:51 PM Interpretation: Performing Lab:[facility], [address] [place] [phone] Notes/Report: Sodium 138 135-145 mmol/L Potassium 4.1 [...] Panel Reviewed date:07/03/2024 08:01:49 PM Interpretation: Performing Lab:[facility], [address] [place] [phone] Notes/Report: Triglycerides 98 <150 mg/dL Desirable Triglyceride: [...] date:07/17/2024 04:52:07 PM Interpretation:see back 07-17-2024 Performing Lab:[facility], [address] [place] [phone] Notes/Report: PSA,Total (Free>4and<10) 5.94 0.00-4.00 ng/mL PSA methodology: Burgess Alinity i Chemiluminescent Microparticle Immunoassay (CMIA) UA ClnCatch+Micro w/rflx Cul t Reviewed date:07/03/2024 08:03:57 PM Interpretation: Performing Lab:[facility], [address] [place] [phone] Notes/Report: Urine, Clean Catch Color Urine Yellow Appearance Urine Clear PH 5.5 5.0-9.0 Glucose Urine UA Negative Negative mg/dL Urine Blood Negative Negative Specific [place] - Urine 1.015 1.005-1.025 Urine Protein Negative [...] Date Provider Diagnosis Richard Castro MD [address] [place], [place] [phone] 07/03/2024 Richard Castro Elevated PSA R97.20 ; Encounter for immunization Z23 and Pure hypercholesterolemia E78.00 Assessments Encounter Date Diagnosis (ICD Code) Assessment Notes Treatment Notes Treatment Clinical Notes Section Notes 07/03/2024 Elevated PSA (ICD-10 - R97.20) 07/03/2024 Encounter for immunization (ICD-10 - Z23) 07/03/2024 Pure hypercholesterolemia (ICD-10 - E78.00) Plan Of Treatment Next Appt Details Provider Name:Richard Chatman ier, 07/05/2025 07:30:00 AM, [address] [place] [address], [address], [phone], Provider Name:Richard Chatman ier, 07/18/2025 01:00:00 PM, [address] [place] [address], [place] [address], [place], [place], [phone], Progress Notes * Joselito HURD ADOB:[birth year] (74 yo M)Acc No.[id number]:07/03/2024 Progress Note Patient:?Joselito HURD Provider:?Richard Castro MD :1950???Age:74 Y???Sex:Male Vasquez e:07/03/2024 Address:[address] [place], [place] [phone] Subjective: * Chief Complaints: * ???1. FASTING LABS. * Medical History:? * Medications:?Taking Cartia X T 120 MG Capsule Extended Release 24 Hour [...] 4 days Orally Once a day , Not-Taking/PRN Valtrex 1 GM Tablet 1 tablet Orally 3 times a day , Not- Taking/PRN Tylenol Extra Strength 500 MG Tablet 3 tablets orally every 6 hrs , Not- Taking/PRN Ibuprofen 800 MG Tablet 1 tablet with food or milk as needed Orally Three times a day , Not-Taking/PRN Cyclobenzaprine HCl 5 MG Tablet 1 tablet [...] Orally Three times a day Objective: * Vitals:? Assessment: * Assessment: 1.?Encounter for immunizatio n - Z23 (Primary)???2.?Elevated PSA - R97.20???3.?Pure hypercholesterolemia - E78.00??? Plan: * Treatment: 2.?Pure hypercholesterolemia ?LAB: Complete Blood Count Auto Diff (Collection Date & Time - 07/03/2024 08:30 AM) ?LAB: Comprehensive [place]. Panel Fast (Collection Date & Time - 07/03/2024 08:30 AM) ?LAB: Lipid Panel (Collection Date & Time - 07/03/2024 08:30 AM) ?LAB: PSA,Total (Free>4and<10) (Collection Date & Time - 07/03/2024 08:30 AM) ?LAB: UA ClnCatch+Micro w/rflx Cult (Collection Date & Time - 07/03/2024 08:30 AM) * Immunizations:? Influenza High Dose : 0.5 mL (Dose No:1) (Route: Intramuscular) given by Evelyn Blackwood , Office Staff on Left Deltoid * Procedure Codes:?65886 FLU V ACC PRSV FREE INC ANTIG, G0008 ADMN FLU VAC NO FEE SCHED SAME DAY, 55644 VENIPUNCT, ROUTINE* * * The named appointment provid er may or may not be the originator of this progress note, and it is not deemed complete until electronically signed by the appointment provider. Sign off status: Pending * Provider:?Richard Castro MD Date:?09/02/2023 Generated for Per deleon/Amandeep/Malindaitting on:?10/19/2024 01:43 PM EST
--- OUTSIDE RECORDS SUMMARY | 2024-10-19 13:43 | XMS_ITS | Patient Health Record ---
Author Organization Richard Castro MD Address [address] [place], [place] [id number] Care Team Providers [facility] Manager Name Role Phone Richard Castro Primary Care Provider [phone] Allergies No Known Allergies Results Component Value Reference Range Notes Complete Blood Count Auto Di ff Reviewed date:07/03/2024 08:00:30 PM Interpretation: Performing Lab:[facility], [address] [place] [phone] Notes/Report: White Blood Count 7.5 4.8-10.8 X10*3/uL [...] NRBC Abs Auto 0.000 0.0-0.012 X10*3/uL Comprehensive [place]. Panel Fa st Reviewed date:07/03/2024 08:16:51 PM Interpretation: Performing Lab:[facility], [address] [place] [phone] Notes/Report: Sodium 138 135-145 mmol/L Potassium 4.1 [...] PM Interpretation: Performing Lab:[facility], [address] [place] [phone] Notes/Report: Triglycerides 98 <150 mg/dL Desirable Triglyceride: [...] back 07-17-2024 Performing Lab:[facility], [address] [place] [phone] Notes/Report: PSA,Total (Free>4and<10) 5.94 0.00-4.00 ng/mL PSA methodology: Burgess Alinity i Chemiluminescent Microparticle Immunoassay (CMIA) UA ClnCatch+Micro w/rflx Cul t Reviewed date:07/03/2024 08:03:57 PM Interpretation: Performing Lab:[facility], [address] [place] [phone] Notes/Report: Urine, Clean Catch Color Urine Yellow Appearance Urine Clear PH 5.5 5.0-9.0 Glucose Urine UA Negative Negative mg/dL Urine Blood Negative Negative Specific Landing - Urine 1.015 1.005-1.025 Urine Protein Negative Neg-Trace mg/dL Urine Ketones Negative Negative mg/dL Nitrite Urine Negative Negative Leukocyte Esterase Urine Negative Negative RBC Urine 0-2 0-2 /HPF WBC Urine 0-5 0-5 /HPF Squamous Epithelial Cell Urine 0-2 0-2 /HPF Bacteria Urine None Seen None Seen Hyaline Casts Urine 0-2 0-2 /LPF Occult Blood, Stool, Guaiac Reviewed date:07/17/2024 02:27:21 PM Interpretation:Negative Performing Lab: Notes/Report: Negative Occult Blood, Stool, Guaiac Neg MR shoulder RT wo con Reviewed date:03/19/2024 02:09:45 PM Interpretation: Performing Lab: Notes/Report: [address] [address] Magnetic Resonance Report Signed Patient: Joselito Hurd MR#: [id number] 4 : 1950 Acct:[id number] Age/Sex: 74 / M ADM Date: 03/13/24 Loc: HO.MRI Attending Dr: Leslie Browning PA-C Ordering Physician: Leslie Browning PA-C Date of Service: 03/13/24 Procedure(s): MR shoulder RT wo con Accession Number(s): [id number] cc: Richard Castro MD; Leslie Browning PA-C [...] curved with no subacromial spur. There is pmlx-aq-qlezisty hypertrophic osteoarthritis of the acromioclavicular joint. LABRUM/CAPSULE: [...] interstitial partial tearing of the subscapularis. 4. Igww-fp-onounyos hypertrophic osteoarthritis of the acromioclavicular joint. 5. Mild arthrosis of the glenohumeral joint. Dictated By: Domingo Mckeon MD Signed By: <Electronically signed by Domingo Mckeon MD in OV> 03/19/24 0741 DD/ 1740 TD/TT: Licensed Mental Health Professional: [place] [address] Magnetic Resonance Report Signed Patient: Flavia Hurd MR#: [id number] 4 : 1950 Acct:[id number] Age/Sex: 74 / M ADM Date: 03/13/24 Loc: HO.MRI Attending Dr: Leslie Browning PA-C Ordering Physician: Leslie Browning PA-C Date of Service: 03/13/24 Procedure(s): MR shoulder RT wo con Accession Number(s): [id number] cc: Richard Castro MD; Leslie Browning PA-C EXAMINATION: MR SHOULDER WITHOUT CONTRAST, RIGHT CLINICAL INFORMATION: Reason for Exam Z98. 890 - Other specified postprocedural states. COMPARISON: X-ray [...] There is a full-thickness tear/defect throughout the entir e supraspinatus and at least the anterior half of the infraspinatus tendon. There is a small 8 mm cyst present within the intrasubstance porti on of the retracted supraspinatus tendon. There is retraction of the to rn portion of these tendons back to level of the glenoid resulting in a tendon gap measuring 5.7 cm transverse 4.3 cm AP. This results in cephalad subluxation of the humeral head nearly abutting the undersurface of the acromion. There is moderate atrophy and grade 2-3 fatty infiltration of both muscles. Teres minor normal. Subscapularis: A tin y intrasubstance increased signal compatible with tendinosis and/or minimal interstitial partial tearing. No transverse defect or tendon retraction. Muscle normal. BICEPS: Not clearly visualized compatible with complete tear and retraction. Biceps t ear also noted on a prior examination. CORACOACROMIAL ARCH: The undersurface of the acromion is curved with no subacromial spur. Th ere is cbum-sk-poqlxllw hypertrophic osteoarthritis of the acromioclavic ular joint. LABRUM/CAPSULE: Normal. GLENOHUMERAL JOINT/MARROW: A 3 mm area of partial-thickness cartilage loss along the media l aspect of the humeral head not seen previously. Glenoid cartilage normal. Mild joint effusion and synovitis. M R/MR shoulder RT wo con IMPRESSION: 1. Postsurgical beck ges related to prior rotator cuff surgery. 2. Large full-thickn ess tear/recurrent tear involving the entire supraspinatus and at least the anterior half of the infraspinatus the tendon with associat ed atrophy and fatty infiltration of both muscles. 3. Minimal tendinosi s and/or minimal interstitial partial tearing of the subscapularis. 4. Yyhp-rt-bcvrxbzo hypertrophic osteoarthritis of the acromioclavicular joint. 5. Mild arthrosis of the glenohumeral joint. Dictated By: Domingo Mckeon MD Signed By: <Electronically signed by Domingo Mckeon MD in OV> 03/19/24 0741 DD/ 1740 TD/TT: Tool Mechanic ist: WG PSA Free and Total Reviewed date:07/23/2024 08:09:01 AM Interpretation:cback psa 07/17 Performing Lab:[facility], [address] [place] [phone] Notes/Report: Prostate Specific Ag Total 6.2 < OR = 4.0 ng/mL Percent Free Prostate Spec Ag 21 >25 % (calc) PSA(ng/mL) Free PSA(%) Estimated(x) Probability of Cancer(as%) 0-2.5 (*) Approx. 1 2.6-4.0(1) 0-27(2) 24(3) 4.1-10(4) 0-10 56 11-15 28 16-20 20 21-25 16 >or =26 8 >10(+) N/A >50 References:(1)Jasono na et al.:Urology 60: 469-474 (2002) (2)Jasonona et al.:J.Urol 168: 922-925 (2001) Free PSA(%) Sensitivity(%) Specificity(%) < or = 25 85 19 < or = 30 93 9 (3)Catalona et al.:MICHI 277: 2317-8998 (1996) (4)Catalona et al.:MICHI 279: 6360-4927 (1997) (x)These estimates vary with age, ethnicity, [...] mind. PSA was performed using the Zulema Felisa Immunoassay method. Values obtained from different assay methods cannot be used interchangeably. PSA levels, regardless of value, should not be interpreted as absolute evidence of the presence or absence of disease. THIS TEST WAS PERFORMED AT: [facility] [address] [place] [phone] CLAUS SEALS MD Free Prostate Spec Ag 1.3 Reason For Referral Reason acute pain of [...] Referral Priority Routine Referral Appointment Date 12/26/2023 Medications Medication SIG (Take, Route, Frequency, Duration) Notes Start Date End Date Status Co Q 10 100 MG 1 capsule with a nils l Orally Once a day Active Tamsulosin HCl 0.4 MG 1 capsule Orally O nce a day Active Cartia XT 120 MG 1 capsule Orally Onc e a day for 30 day(s) Active Indomethacin 50 MG 1 capsule with food or milk Orally Three times a day for 10 days 10/07/2016 Not-Taking Flecainide Acetate 150 MG 1 tablet [...] BY MOUTH ONCE DAILY for 30 Active Immunizations Vaccine Route Administration Date Status [...] High Dose IM Intramuscular 06/27/2023 Administer ed Influenza High Dose IM Intramuscular 07/03/2024 Administer ed Social History Tobacco Use: Social History Observation [...] Never (0 point) Points 1 Interpretation Negative Problems Problem Type SNOMED Code ICD Code Onset Dates Problem Status W/U Status Risk Notes Problem 341774211 Neuropathy (G62.9) Active confirmed Problem 49092998 Prostatism (N40.0) Active confirmed Problem 039312676 Paroxysmal atria l fibrillation (I48.0) Active confirmed Problem 314352688 Essential tremor (G25.0) Active confirmed Problem 344771879533262 Erectile dysfunc tion due to arterial insufficiency (N52.01) Active confirmed Problem 37704049 Mitral valve dis order (I05.9) Active confirmed Problem Pure hypercholesterolemia (073581419) Elevated LDL cholesterol level (E78.0) Active confirmed Problem 082100948 Non-rheumatic mi tral regurgitation (I34.0) Active confirmed Problem 316334364 Pure hypercholesterolemia (E78.00) Active confirmed Problem 858202545 Elevated PSA (R97.20) Active confirme d Problem 671377284 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 confirmed Problem 88411865 Hydronephrosis 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) Active confirmed Problem 478353186 Elevated serum cholesterol (E78.9) Active confirmed Problem 707706507 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 Vital Signs Blood pressure diastolic 74 mm Hg 07/17/2024 chandra ght is up 5 pounds since 01-23-24 Height 70.50 in 07/17/2024 weight is up 5 pounds since 01-23-24 Blood pressure systolic 118 mm Hg 07/17/2024 weig ht is up 5 pounds since 01-23-24 Weight 201 lbs 07/17/2024 weight is up 5 pounds since 01-23-24 BMI 28.43 kg/m2 07/17/2024 weight is up 5 pounds since 01-23-24 Encounters Encounter Location Date Provider Diagnosis Richard Castro MD [address] [place] [id number] 07/03/2024 Richard Castro Elevated PSA R97.20 ; Encounter for immunization Z23 and Pure hypercholesterolemia E78.00 Richard Castro MD [address] [place] [id number] 12/22/2023 Richard Castro Acute pain of right shoulder M25.511 Richard Castro MD [address] [place] [id number] 01/23/2024 Richard Castro Bronchitis J40 Richard Castro MD [address] [place] [id number] 07/17/2024 Richard Castro Essential tremor G25 .0 ; Pure hypercholesterolemia E78.00 ; Elevated PSA R97.20 ; Paroxysmal atrial fibrillation I48.0 ; Colon cancer screening Z12.11 and Depression screening Z13.31 Assessments Encounter Date Diagnosis (ICD Code) Assessment Notes Treatment Notes Treatment Clinical Notes Section Notes 07/03/2024 Elevated PSA (ICD-10 - R97.20) 07/03/2024 Encounter for immunization (ICD-10 - Z23) 12/22/2023 Acute pain of right shoulder (ICD-10 - M25.511) had rotator cuff repair in past is concerned that he reinjured it. 01/23/2024 Bronchitis (ICD-10 - J40) patient verbalized understanding of medication and directions for use, 07/17/2024 Essential tremor (ICD-10 - G25.0) 07/17/2024 Pure hypercholesterolemia (ICD-10 - E78.00) 07/03/2024 Pure hypercholesterolemia (ICD-10 - E78.00) 07/17/2024 Elevated [...] or maybe wait/ get last note from [facility] 07/17/2024 Colon cancer screeni ng (ICD-10 - Z12.11) guaiac negative 07/17/2024 Depression screening (ICD-10 - Z13.31) negative screen Plan Of Treatment Pending Test Test Name Order Date US RENAL BILATERAL 07/17/2020 US RENAL BILATERAL 07/24/2020 Future Test Test Name Order Date US RENAL BILATERAL 07/29/2021 Next Appt Details Provider Name:Richard Chatman ier, 07/05/2025 07:30:00 AM, [address] [facility], [address], [place], [place], [phone], Provider Name:Richard Chatman ier, 07/18/2025 01:00:00 PM, [address] [facility], [address], [place], [place], [phone], Insurance Providers Payer Name Payer Address Payer Phone Subscriber Number Group Number Insured Name Patient Relationship to Insured Coverage Start Date Coverage End Date MEDICARE NHIC [address] [place] [address] [id number] Joselito Hurd Self - patient is the insured MED[employer] OF [place] [address] [place] [phone] [id number] [place] Joselito Self - patient is the insured Medical (General) History Medical History History ICD Code Colonoscopy - [...]
--- OUTSIDE RECORDS SUMMARY | 2024-10-19 13:43 | XMS_ITS ---
Author Organization Richard Castro MD Address [address] [place] [phone] Care Team Providers Care Trouble Clerk Name Role Phone Richard Castro Primary Care Provider [phone] Allergies No Known Allergies Results Component Value [...] Location Date Provider Diagnosis Richard Castro MD [address] [place] [address] [address] [place], [place] [phone] 07/17/2024 Richard Castro Essential tremor G25 .0 [...] or maybe wait/ get last note from [facility] 07/17/2024 Colon cancer screeni ng (ICD-10 [...] or maybe wait/ get last note from [facility] Colon cancer screening guaiac negative Depression screening negative screen Next Appt Details Follow Up: 1 Year, Reason: Provider Name:Richard escamilla, 07/05/2025 07:30:00 AM, [address] [place] [address], [address] [place] [address], [phone], Provider Name:Richard escamilla, 07/18/2025 01:00:00 PM, [address] [place] [address], [place] [address], [place], [place], [phone], Progress Notes * Joselito HURD ADOB:[birth year] (74 yo M)Acc No.[id number]:07/17/2024 Patient:?Joselito Hurd Provider:?Richard Castro MD :1950???Age:74 Y???Sex:Male Vasquez e:07/17/2024 [facility] Subjective: * Chief Complaints: * ???Review labsCBACK PSA * HPI: ???Depression Screening:?PHQ-9?Little interest or pleasure in doing things?Not at all,?Feeling down, depressed, or hopeless?Not at all,?Trouble falling or staying asleep, or sleeping too much?Not at all,?Feeling tired or having little energy?Not at all,?Poor appetite or overeating?Not at all,?Feeling bad about yourself or that you are a failure, or have let yourself or your family down?Not at all,?Trouble concentrating on things, such as reading the newspaper or watching television?Not at all,?Moving or speaking so slowly that other people could have noticed; or the opposite, being so fidgety or restless that you have been moving around a lot more than usual?Not at all,?Thoughts that you would be better off or of hurting yourself in some way?Not at all,?Total Score?0.?Interpretation and Intervention?Depression Screening Findings?Negative,?Follow-Up for Depression?: review of PHQ-9 found negative result, no follow-up needed.?Communication Needs:?Communication Needs?Does the patient have a hearing impairment?Yes,?If yes, what is the hearing impairment??Hard of hearing, Hearing Aids,?Does the patient have a vision impairment??Yes,?If yes, what is the vision impairment??Glasses,?Does the patient have a cognition impairment??No.?Fall Risk:?History?Have you had any falls with injury in the past year??No,?Have you had two or more falls in the past year??No.?SDOH Questions:?SDOH Questions?In the past year have you been worried about losing housing??No,?In the past year have you or any family members you live with been unable to get any of the following when it was really needed? Check all that apply:?None.?Symptom(s):? patient is a 74 yo male here for visit with review of recent labs and follow up of chronic issues. * ROS:?General/Constitutional:?Patient denies?fatigue , headache.?Change in appetite?denies.?Chills?denies.?Fever?denies.?Ophthalmologic:?Blurred vision?denies.?Discharge?denies.?Pain?denies.?ENT:?Patient denies?decreased sense of smell , any loss of taste , sore throat.?Decreased hearing?denies.?Sore throat?denies.?Swollen glands?denies.?Endocrine:?Cold intolerance?denies.?Excessive thirst?denies.?Heat intolerance?denies.?Weight loss?denies.?Respiratory:?Cough?denies.?Shortness of breath at rest?denies.?Shortness of breath with exertion?denies.?Wheezing?denies.?Cardiovascular:?Chest pain at rest?denies.?Chest pain with exertion?denies.?Irregular heartbeat?denies.?Shortness of breath?denies.?Gastrointestinal:?Abdominal pain?denies.?Change in bowel habits?denies.?Diarrhea?denies.?Nausea?denies.?Rectal bleeding?denies.?Vomiting?denies .?Genitourinary:?Blood in urine?denies.?Difficulty urinating?denies.?Frequent urination?denies.?Musculoskeletal:?Patient denies?muscle aches.?Painful joints?denies.?Weakness?denies.?Peripheral Vascular:?Patient denies?red and blue toes.?Skin:?Dry skin?denies.?Itching?denies.?Denies?Mole(s),? changes in moles, new moles or any lesions of concern.?Denies?Photosensitivity.?Rash?denies.?Neurologic:?Dizziness?denies.?Fainting?denies.?Headache?denies.? * Medical History:? * Surgical History:? * Hospitalization/Major Diagno stic Procedure:? * Family History:?Father: dece ased 72 yrs, diagnosed with Cancer.?Mother: 99 yrs.?1 brother(s) , 1 sister(s) . 2 son(s) , 1 daughter(s) . .? Denies mental health/substance abuse family history youngest son substance abuse, No pertinent family medical history. * Social History:?Tobacco Use:?Tobacco Use/Smoking?Patient is a?former smoker,?How long has it been since you last smoked??> 10 years,?Additional Findings: Tobacco Non-User?Current non-smoker, currently using no form of tobacco.?Drugs/Alcohol:?Alcohol Screen?Did you have a drink containing alcohol in the past year??Yes,?How often did you have a drink containing alcohol in the past year??Monthly or less (1 point),?How many drinks did you have on a typical day when you were drinking in the past year??1 or 2 drinks (0 point),?How often did you have 6 or more drinks on one occasion in the past year??Never (0 point),?Points?1,?Interpretation?Negative.?Miscellaneous:?Caffeine: yes, frequency:, 1-2 cups per day. Children: yes. no Community involvements. Exercise: yes, Eliptical 4 times a week for 20 minutes. Home smoke detector use: yes. Housing: owning. Living with: spouse. Marital status: . Occupation: Retired. Pets: none. no Travel outside of the [place]. * Medications:?TakingCartia XT 120 MG Capsule Extended Release 24 [...] reviewed and reconciled with the patient * Allergies:?N.K.D.A.yes[Aller gies Verified] Objective: * Vitals:?Ht: 70.50, Wt:201, B CO:28.43, BP:118/74 weight is up 5 pounds since 01-23-24. * ???Past Orders: ???Lab:Comprehensive [place]. P chuck Fast (Order Date - 07/03/2024) (Collection Date - 07/03/2024) ? Value Reference Range ?Sodium 138 135-145 - mmo l/L ?Bilirubin Total 0.7 0.0- 1.0 - mg/dL ?Aspartate Amino Transferase 41 H 5-37 - U/L ?Alanine Aminotransferase 29 0-40 - U/L ?Total Protein 6.9 6.5-8. 0 - g/dL ?Albumin Level 3.8 3.5-5. 0 - g/dL ?Alkaline Phosphatase 89 39-117 - U/L ?Potassium 4.1 3.3-5.1 - mmol/L ?Chloride 108 96-108 - mm ol/L ?Carbon Dioxide 26 22-29 - mmol/L ?Anion Gap 8 L 12-20 - ?Blood Urea Nitrogen 17 H 9-16 - mg/dL ?Creatinine 0.99 0.5-1.4 - mg/dL ?Estimated Glomerular Filt Rate > 60 - ?Glucose Fasting 95 60-9 9 - mg/dL ?Calcium 8.9 8.4-10.2 - m g/dL ???Lab:Lipid Panel (Order Da te 07/03/2024) (Collection Date - 07/03/2024) ? Value Reference Range ?Triglycerides 98 <150 - mg/dL ?Cholesterol 201 H <200 - m g/dL ?LDL Cholesterol Calculated 140 H <100 - mg/dL ?HDL Cholesterol 42 >40 - mg/dL ???Lab:UA ClnCatch+Micro w/r flx Cult (Order Date - 07/03/2024) (Collection Date - 07/03/2024) ? Value Reference Range ?Color Urine Yellow - ?Appearance Urine Clear - ?PH 5.5 5.0-9.0 - ?Glucose Urine UA Negative Neg ative - mg/dL ?Urine Blood Negative Negative - ?Specific [place] - Urine 1.015 1.005-1.025 - ?Urine Protein Negative Neg-Tr preethi - mg/dL ?Urine Ketones Negative Negati ve - mg/dL ?Nitrite Urine Negative Negati ve - ?Leukocyte Esterase Urine Negative Negative - ?RBC Urine 0-2 0-2 - /HPF ?WBC Urine 0-5 0-5 - /HPF ?Squamous Epithelial Cell Urine 0-2 0-2 - /HPF ?Bacteria Urine None Seen None Seen - ?Hyaline Casts Urine 0-2 0-2 - /LPF ???Lab:Complete Blood Count Auto Diff (Order Date - 07/03/2024) (Collection Date - 07/03/2024) ? Value Reference Range ?White Blood Count 7.5 4. 8-10.8 - X10*3/uL ?Red Blood Count 4.15 L 4.60 -5.80 - X10*6/uL ?Hemoglobin 13.3 L 14.0-18.0 - g/dl ?Hematocrit 39.1 L 42.0-52.0 - % ?Mean Corpuscular Volume 94.2 80.0-98.0 - fL ?Mean Corpuscular Hemoglobin 32.0 27.0-33.0 - pg ?Mean Corpuscular HGB Conc 34.0 31.0-36.0 - g/dl ?Red Cell Distribution Width 14.9 11.0-16.0 - % ?Platelet Count 248 160-4 00 - X10*3/uL ?Mean Platelet Volume 10.2 9.4-12.4 - fL ?Neutrophils Percent Auto 64.9 45-73 - % ?Imm Gran Pct Auto 0.3 0. 0-0.4 - % ?Lymphocytes Percent Auto 23.5 20-40 - % ?Monocytes Percent Auto 8.3 2-11 - % ?Eosinophils Percent Auto 2.5 0-4 - % ?Basophils Percent Auto 0.5 0-2 - % ?NRBC Pct Auto 0.0 0.0-0. 2 - /100WBC ?Neutrophils Absolute Auto 4.9 2.0-8.3 - x10*3/uL ?Imm Gran Abs Auto 0.02 0. 00-0.03 - X10*3/uL ?Lymphocytes Absolute Auto 1.8 1.2-4.9 - X10*3/uL ?Monocytes Absolute Auto 0.6 0.1-1.2 - X10*3/uL ?Eosinophils Absolute Auto 0.2 0.0-0.4 - X10*3/uL ?Basophils Absolute Auto 0.0 0.0-0.2 - X10*3/uL ?NRBC Abs Auto 0.000 0.0-0. 012 - X10*3/uL * Examination: ???General Examination: ?GENERAL APPEARANCE:?well developed, well nourished, in no acute distress.?HEAD:?normocephalic, atraumatic.?EYES:?pupils equal, round, reactive to light and accommodation, sclera non-icteric.?EARS:?normal.?ORAL CAVITY:?mucosa moist.?THROAT:?clear.?NECK/THYROID:?neck supple, full range of motion, no cervical lymphadenopathy, no bruits.?SKIN:?warm and dry, no suspicious lesions.?HEART:?regular rate and rhythm, S1, S2 normal, no murmurs.?LUNGS:?clear to auscultation bilaterally.?ABDOMEN:?soft, nontender, nondistended, bowel sounds present, normal, no organomegaly , no masses palpable.?RECTAL EXAM:?normal tone, no external hemorrhoids, no masses palpable, prostate normal, stool guaiac negative.?MALE GENITOURINARY:?uncircumcised , testes descended bilaterally , no testicular mass.?EXTREMITIES:?no clubbing, cyanosis, or edema.?NEUROLOGIC:?nonfocal, motor strength normal upper and lower extremities, sensory exam intact.? Assessment: * Assessment: 1.?Essential tremor - G25.0 (Primary)?2.?Pure hypercholesterolemia - E78.00?3.?Elevated PSA - R97.20?4.?Paroxysmal atrial fibrillation - I48.0?5.?Colon cancer screening - Z12.11?6.?Depression screening - Z13.31? Plan: * Treatment: 2.?Paroxysmal atrial fibrill ation? Continue Flecainide Acetate Tablet, 150 MG, 1 tablet, Orally, every 12 hrs.?? Notes: have warned him of the risk of stroke and he should be on anticoag. he is going to think about it and get back to me or maybe wait/ get last note from [facility]?? 3.?Colon cancer screening?LAB: Occult Blood, Stool, Guaiac?Negative ? Value Reference Range ?Occult Blood, Stool, Guaiac Neg Notes: guaiac negative??4.?Depression screening? Notes: negative screen?? * Procedure Codes:?28384 TEST FOR BLOOD, FECES * Follow Up:?1 Year * * Sign off status: Completed true * Provider:?Richard Castro MD Date:?1 09/17/2023 Generated for Silviai adrienne/Amandeep/eTransmitting on:?10/19/2024 01:43 PM EST History and Physical Notes * [...] the patient have a hearing impairment: Yes ?If yes, what is the hearing impairment? : Hard of hearing, Hearing Aids Does the patient have a vision impairmen t?: Yes ?If yes, what is the vision impairment?: Glasses Does the patient have a cognition impair ment?: No Examination Category Sub-Category Detail Notes Category Not es General Examination GENERAL APPEARANCE: well dev eloped, well nourished, in no acute distress HEAD: normocephalic, atrau matic EYES: pupils equal, round, reactive to light and accommodation, sclera non- icteric EARS: normal THROAT: clear NECK/THYROID: neck supple, [...]
== END 2024-10-19 12:29 | disposition home or self-care (01) ==
PROVIDERS: PCP Internal Medicine; Visit Provider Orthopaedic Surgery
DX: M12.811 Other specific arthropathies, not elsewhere classified, right shoulder (principal)
CPT/HCPCS: 99214

== ENCOUNTER → 2024-10-19 11:50 | Outpatient (BNVA) | payer MEDICARE, SELFPAY | PROVIDERS: PCP Internal Medicine; Visit Provider Orthopaedic Surgery | DX: M12.811 Other specific arthropathies, not elsewhere classified, right shoulder (principal) | CPT/HCPCS: 99212 ==

== ENCOUNTER 2024-12-17 16:33 | Outpatient (REF) | payer MEDICARE, SELFPAY ==
--- NOTE | ~2024-12-17 | CT_ITS ---
CLINICAL HISTORY: M12.819 - Other specific arthropathies, not elsewhere classified, unspec... --- Add itional Notes or Special Instructions: PRe op planning Exam: CT of the right shoulder without intravenous contrast. Comparison: MRI March 13, 2024. Findings: Suture anchors are again seen within the humeral head. Humeral head is high-riding nearly contacting the undersurface of the acromion. Extensive fatty atrophy of the supraspinatus and infraspinatus muscles. No fracture or dislocation. Mild degenerative change of the glenohumeral joint with joint space narrowing and osteophyte formation. Numerous surgical clips are seen in the right axilla. Type 2 acromion. Moderate degenerative change of the AC joint. No infiltrates are seen within the visualized portion of the right lung. No aggressive periosteal reaction or bony destructive lesion is seen. Impression: 1. High-riding humeral head with atrophy of the supraspinatus and infraspinatus muscle suggestive of chronic full-thickness rotator cuff tear. 2. Glenohumeral joint and AC joint DJD. This document has been electronically signed by: Gurdeep Reaves MD on 12/19/2024 09:13:15
--- OUTSIDE RECORDS SUMMARY | 2024-12-17 17:44 | XMS_ITS | Patient Health Record ---
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 Panel Fa st Reviewed date:07/03/2024 08:16:51 PM Interpretation: Performing Lab:[facility], [address] [place] [phone] Notes/Report: Sodium 138 135-145 mmol/L Potassium 4.1 [...] Reviewed date:07/03/2024 08:01:49 PM Interpretation: Performing Lab:[facility], [address] [place] [phone] Notes/Report: Triglycerides 98 <150 mg/dL Desirable Triglyceride: [...] 04:52:07 PM Interpretation:see back 07-17-2024 Performing Lab:[facility], [address] [place] [phone] Notes/Report: PSA,Total (Free>4and<10) 5.94 0.00-4.00 ng/mL PSA methodology: Burgess Alinity i Chemiluminescent Microparticle Immunoassay (CMIA) UA ClnCatch+Micro w/rflx Cul t Reviewed date:07/03/2024 08:03:57 PM Interpretation: Performing Lab:[facility], [address] [place] [phone] Notes/Report: Urine, Clean Catch Color Urine Yellow Appearance Urine Clear PH 5.5 5.0-9.0 Glucose Urine UA Negative Negative mg/dL Urine Blood Negative Negative Specific [place] - Urine 1.015 1.005-1.025 Urine Protein Negative [...] date:03/19/2024 02:09:45 PM Interpretation: Performing Lab: Notes/Report: [address] [address] Magnetic Resonance Report Signed Patient: Joselito Hurd MR#: [id number] 4 : 1950 Acct:[id number] Age/Sex: 74 / M ADM Date: 03/13/24 Loc: HO.MRI Attending Dr: Leslie Browning PA-C Ordering Physician: Leslie Browning PA-C Date of Service: 03/13/24 Procedure(s): MR shoulder RT wo con Accession Number(s): [id number] cc: Richard Castro MD; Leslie Browning PA-C [...] curved with no subacromial spur. There is gcpn-rq-tckslqdj hypertrophic osteoarthritis of the acromioclavicular joint. LABRUM/CAPSULE: [...] interstitial partial tearing of the subscapularis. 4. Euql-tm-cjcbgxbp hypertrophic osteoarthritis of the acromioclavicular joint. 5. Mild arthrosis of the glenohumeral joint. Dictated By: Domingo Mckeon MD Signed By: <Electronically signed by Domingo Mckeon MD in OV> 03/19/24 0741 DD/ 1740 TD/TT: Metal Spinner: CI[place] [id number] Magnetic Resonance Report Signed Patient: Flavia Hurd MR#: [id number] 4 : 1950 Acct:[id number] Age/Sex: 74 / M ADM Date: 03/13/24 Loc: HO.MRI Attending Dr: Leslie Browning PA-C Ordering Physician: Leslie Browning PA-C Date of Service: 03/13/24 Procedure(s): MR shoulder RT wo con Accession Number(s): [id number] cc: Richard Castro MD; Leslie Browning PA-C [...] with no subacromial spur. Th ere is ymkb-yc-ehbtqloe hypertrophic osteoarthritis of the acromioclavic ular joint. [...] interstitial partial tearing of the subscapularis. 4. Qqbg-wm-kdchlxlr hypertrophic osteoarthritis of the acromioclavicular joint. 5. Mild arthrosis of the glenohumeral joint. Dictated By: Domingo Mckeon MD Signed By: <Electronically signed by Domingo Mckeon MD in OV> 03/19/24 0741 DD/ 1740 TD/TT: Guest Service Representative ist: WG PSA Free and Total Reviewed date:07/23/2024 08:09:01 AM Interpretation:cback psa 07/17 Performing Lab:[facility], [address] [place] [phone] Notes/Report: Prostate Specific Ag Total 6.2 < [...] 30 93 9 (3)Catalona et al.:MICHI 277: 1761-9853 (1996) (4)Catalona et al.:MICHI 279: 1757-9573 (1997) (x)These estimates vary with age, ethnicity, [...] mind. PSA was performed using the Zulema [place] Immunoassay method. Values obtained from different assay methods cannot be used interchangeably. PSA levels, regardless of value, should not be interpreted as absolute evidence of the presence or absence of disease. THIS TEST WAS PERFORMED AT: [facility] [employer] [facility] [address] [place] [phone] CLAUS SEALS MD Free Prostate Spec Ag 1.3 Reason For Referral Reason acute pain of right shoulder Diagnosis 1 Acute pain of right shoulder (M25.511) Referral Organization Richard Castro MD Referring Provider First Name Richrad Referring Provider Last Name Gloria Referring Provider [...] Duration) Notes Start Date End Date Status Propranolol HCl ER 80 MG TAKE ONE CAPSUL E BY MOUTH ONCE DAILY for 30 Active Co Q 10 100 MG 1 [...] a day for 7 days 01/13/2021 Not-Taking Immunizations Vaccine Route Administration Date Status Comme [...] Problem Status W/U Status Risk Notes Problem 165802525 Neuropathy (G62.9) Active confirmed Problem 28250450 Prostatism (N40.0) Active confirmed Problem 600803687 Paroxysmal atria l fibrillation (I48.0) Active confirmed Problem 492026490 Essential tremor (G25.0) Active confirmed Problem 466387904882955 Erectile dysfunc tion due to arterial insufficiency (N52.01) Active confirmed Problem 29827730 Mitral valve dis order (I05.9) Active confirmed Problem Elevated LDL cholesterol level (E78.0) Active confirmed Problem 004923717 Non-rheumatic mi tral regurgitation (I34.0) Active confirmed Problem 123103927 Pure hypercholesterolemia (E78.00) Active confirmed Problem 045726326 Elevated PSA (R97.20) Active confirme d Problem 307539139 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 confirmed Problem 10067288 Hydronephrosis 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) Active confirmed Problem 534249054 Elevated serum cholesterol (E78.9) Active confirmed Problem 808614385 Mixed conductive and sensorineural hearing loss of [...] Richard Castro MD [address] [place] [phone] 07/03/2024 Richard Castro Elevated PSA R97.20 ; Encounter for immunization Z23 and Pure hypercholesterolemia E78.00 Richard Castro MD [address] [place] [phone] 12/22/2023 Richard Castro Acute pain of right shoulder M25.511 Richard Castro MD [address] [place] [phone] 01/23/2024 Richard Castro Bronchitis J40 Richard Castro MD [address] [place] [phone] 07/17/2024 Richard Castro Essential tremor G25 .0 [...] or maybe wait/ get last note from [facility] 07/17/2024 Colon cancer screeni ng (ICD-10 - Z12.11) guaiac negative 07/17/2024 Depression screening (ICD-10 - Z13.31) negative screen Plan Of Treatment Pending Test Test Name Order Date US RENAL BILATERAL 07/17/2020 US RENAL BILATERAL 07/24/2020 Future Test Test Name Order Date US RENAL BILATERAL 07/29/2021 Next Appt Details Provider Name:Richard escamilla, 12/24/2024 11:00:00 AM, [address] [place] [address], [address], [place], [place], [phone], Provider Name:Richard saldivarr, 07/05/2025 07:30:00 AM, [address] [place] [address], [address], [place], [place], [phone], Provider Name:Richard saldivarr, 07/18/2025 01:00:00 PM, [address], [address], [place], [place], [phone], Insurance Providers Payer Name Payer Address Payer Phone Subscriber Number Group Number Insured Name Patient Relationship to Insured Coverage Start Date Coverage End Date MEDICARE NHIC [address] [place] [address] [id number] Joselito Hurd Self - patient is the insured [employer] [place] [place] [address] [place] [phone] [id number] Joselito Hurd Self - patient is the insured Medical [...]
--- OUTSIDE RECORDS SUMMARY | 2024-12-17 17:44 | XMS_ITS ---
Author Organization Richard Castro MD Address [address] [place] [phone] Care Team Providers Care Crew Team Member Name Role Phone Richard Castro Primary Care Provider Allergies No Known Allergies REASON FOR VISIT COUGHING ONE WEEK, WHEEZING and fatigue, CELL PHONE [phone], WILL TEST FOR COVID THIS MORN, tested [...] Location Date Provider Diagnosis Richard Castro MD [address] [place] [address] [place] [phone] 01/23/2024 Richard Castro Bronchitis J40 Assessments Encounter [...] Next Appt Details Provider Name:Richard Chatman ier, 12/24/2024 11:00:00 AM, [address], [address], [place], [phone], Provider Name:Richard Chatman ier, 07/05/2025 07:30:00 AM, [address] [facility], [address], [place], [phone], Provider Name:Richard Chatman ier, 07/18/2025 01:00:00 PM, [address], [address], [place], [phone], Progress Notes * Joselito HURD ADOB:[birth year] (73 yo M)Acc No.[id number]:01/23/2024 Patient:?Joselito Hurd A Provider:?Richard Castro MD :1950???Age:73 Y???Sex:Male Vasquez e:01/23/2024 Address:[address] [place] [address] Subjective: * Chief Complaints: * ???COUGHING ONE WEEK, WHEEZI NG and fatigueCELL PHONE [phone] TEST FOR COVID THIS MORNtested for Covid this AM negative * HPI: ???Symptom(s):?Telehealth?Location of provider rendering services:?[address], [address],?Location of patient:?at address listed in demographics for today's visit,?Patient identification confirmed using:?Name, , SSN, Insurance information,?Telehealth method:?Video conference where patient is visible to the provider of care,?Consent:?Patient verbally consented to treatment, Patient verbally consented to billing insurance company, Patient informed of any privacy concerns related to method of visit.? patient is a 73 yo male video telehealth visit with complaint of coughing for one week, wheezing and fatigue. tested negative for covid this morning. * ROS:?General/Constitutional:?Denies?Chills.?Admits?Fatigue.?Denies?Fever.?Denies?Headache.?ENT:?Patient denies?decreased sense of smell , any loss of taste , sore throat.?Denies?Sore throat.?Gastrointestinal:?Denies?Diarrhea.?Denies?Nausea.?Musculoskeletal:?Patient denies?muscle aches.?Peripheral Vascular:?Patient denies?red and blue toes.? * Medical History:? * Surgical History:? * Hospitalization/Major Diagno stic Procedure:? * Medications:?TakingCartia XT 120 MG Capsule Extended [...] milk Orally Three times a day * Allergies:?N.K.D.A.yes[Aller gies Verified] Objective: * Vitals:?Ht: 70.50, Wt:196, B NV:27.72 weight at home is 196 BP not taken at home no temp. * Examination: ???General Examination: ?GENERAL APPEARANCE:? alert, well hydrated, in no distress .?HEAD:? normocephalic.? Assessment: * Assessment: 1.?Bronchitis - J40 (Primary )? Plan: * Treatment: * Procedure Codes:? * * Sign off status: Completed true * Provider:?Richard Castro MD Date:?0 01/23/2024 Generated for Per deleon/Amandeep/Maninder on:?12/17/2024 05:44 PM EDT History and Physical Notes * HPI (History of Present Illness) Category Sub-Category Detail Notes Category Not es Symptom(s) Telehealth Location of [facility] rendering services:: [address], [address] patient is a 73 [...]
--- OUTSIDE RECORDS SUMMARY | 2024-12-17 17:44 | XMS_ITS ---
Author Organization Richard Castro MD Address [address] [place], [place] [phone] Care Team Providers Care Hot Dip Plater Name Role Phone Richard Castro Primary Care Provider Results Component Value Reference Range Notes Complete Blood Count Auto Di ff Reviewed date:07/03/2024 08:00:30 PM Interpretation: Performing Lab:[facility], [address] [place] [phone] Notes/Report: White Blood Count 7.5 4.8-10.8 X10*3/uL [...] NRBC Abs Auto 0.000 0.0-0.012 X10*3/uL Comprehensive [place]. Panel Fa st Reviewed date:07/03/2024 08:16:51 PM Interpretation: Performing Lab:[facility], [address] [place] [phone] Notes/Report: Sodium 138 135-145 mmol/L Potassium 4.1 [...] Panel Reviewed date:07/03/2024 08:01:49 PM Interpretation: Performing Lab:[facility], [address] [place] [phone] Notes/Report: Triglycerides 98 <150 mg/dL Desirable Triglyceride: [...] date:07/17/2024 04:52:07 PM Interpretation:see back 07-17-2024 Performing Lab:[facility], [address] [place] [phone] Notes/Report: PSA,Total (Free>4and<10) 5.94 0.00-4.00 ng/mL PSA methodology: Burgess Alinity i Chemiluminescent Microparticle Immunoassay (CMIA) UA ClnCatch+Micro w/rflx Cul t Reviewed date:07/03/2024 08:03:57 PM Interpretation: Performing Lab:[facility], [address] [place] [phone] Notes/Report: Urine, Clean Catch Color Urine Yellow Appearance Urine Clear PH 5.5 5.0-9.0 Glucose Urine UA Negative Negative mg/dL Urine Blood Negative Negative Specific [place] - Urine 1.015 1.005-1.025 Urine Protein Negative [...] Date Provider Diagnosis Richard Castro MD [address] [place], [place] [phone] 07/03/2024 Richard Catsro Elevated PSA R97.20 ; Encounter for immunization Z23 and Pure hypercholesterolemia E78.00 Assessments Encounter Date Diagnosis (ICD Code) Assessment Notes Treatment Notes Treatment Clinical Notes Section Notes 07/03/2024 Elevated PSA (ICD-10 - R97.20) 07/03/2024 Encounter for immunization (ICD-10 - Z23) 07/03/2024 Pure hypercholesterolemia (ICD-10 - E78.00) Plan Of Treatment Next Appt Details Provider Name:Richard Chatman ier, 12/24/2024 11:00:00 AM, [address] [place] [address], [address], [phone], Provider Name:Richard Chatman ier, 07/05/2025 07:30:00 AM, [address] [place] [address], [place] [address], [place], [place], [phone], Provider Name:Richard Chatman ier, 07/18/2025 01:00:00 PM, [address] [place] [address], [address], [phone], Progress Notes * Joselito HURD ADOB:[birth year] (74 yo M)Acc No.[id number]:07/03/2024 Progress Note Patient:?Joselito HURD Provider:?Richard Castro MD :1950???Age:74 Y???Sex:Male Vasquez e:07/03/2024 Address:[address] [place] [address] Subjective: * Chief Complaints: * ???1. FASTING [...] Time - 07/03/2024 08:30 AM) ?LAB: Comprehensive [place]. Panel Fast (Collection Date & Time - [...] Office Staff on Left Deltoid * Procedure Codes:?29238 FLU V ACC PRSV FREE INC ANTIG, G0008 ADMN FLU VAC NO FEE SCHED SAME DAY, 645[address] VENIPUNCT, ROUTINE* * * The named appointment provid er may or may not be the originator of this progress note, and it is not deemed complete until electronically signed by the appointment provider. Sign off status: Pending * Provider:?Richard Castro MD Date:?09/02/2023 Generated for Per deleon/Amandeep/Maninder on:?12/17/2024 05:43 PM EDT
--- OUTSIDE RECORDS SUMMARY | 2024-12-17 17:44 | XMS_ITS ---
Author Organization Richard Castro MD Address [address] [place] [phone] Care Team Providers Care Completion Manager Name Role Phone Richard Castro Primary [...] Location Date Provider Diagnosis Richard Castro MD [address] [place] [address] [address] [place], [place] [phone] 07/17/2024 Richard Castro Essential tremor G25 .0 [...] or maybe wait/ get last note from [facility] 07/17/2024 Colon cancer screeni ng (ICD-10 [...] or maybe wait/ get last note from [facility] Colon cancer screening guaiac negative Depression screening negative screen Next Appt Details Follow Up: 1 Year, Reason: Provider Name:Richard escamilla, 12/24/2024 11:00:00 AM, [address] [place] [address], [address], [phone], Provider Name:Richard escamilla, 07/05/2025 07:30:00 AM, [address] [place] [address], [address], [phone], Provider Name:Richard escamilla, 07/18/2025 01:00:00 PM, [address] [place] [address], [address], [phone], Progress Notes * Joselito HURD ADOB:[birth year] (74 yo M)Acc No.[id number]:07/17/2024 Patient:?Joselito Hurd Provider:?Richard Castro MD :1950???Age:74 Y???Sex:Male Vasquez e:07/17/2024 Address:[address] [place] [address] Subjective: * Chief Complaints: * ???Review labsCBACK [...] Travel outside of the [place]. * Medications:?TakingCartia XT 120 MG Capsule [...] Verified] Objective: * Vitals:?Ht: 70.50, Wt:201, B AR:28.43, BP:118/74 weight is up 5 pounds since 01-23-24. * ???Past Orders: ???Lab:Comprehensive [place]. P chuck Fast (Order Date - 07/03/2024) [...] m g/dL ???Lab:Lipid Panel (Order Da te - 07/03/2024) (Collection Date - 07/03/2024) ? [...] mg/dL ?Urine Blood Negative Negative - ?Specific [place] - Urine 1.015 1.005-1.025 - ?Urine Protein [...] or maybe wait/ get last note from [facility]?? 3.?Colon cancer screening?LAB: Occult Blood, Stool, Guaiac?Negative ? Value Reference Range ?Occult Blood, Stool, Guaiac Neg Notes: guaiac negative??4.?Depression screening? Notes: negative screen?? * Procedure Codes:?12149 TEST FOR BLOOD, FECES * Follow Up:?1 Year * * Sign off status: Completed true * Provider:?Richard Castro MD Date:?1 09/17/2023 Generated for Per deleon/Amandeep/eTransmitting on:?12/17/2024 05:44 PM EDT History and Physical [...]
== END 2024-12-17 16:34 | disposition home or self-care (01) ==
LOC: HO.CT 16:33
PROVIDERS: PCP Internal Medicine; Visit Provider Physician Assistant
DX: M12.819 Other specific arthropathies, not elsewhere classified, unspecified shoulder (principal)
CPT/HCPCS: 73200

== ENCOUNTER → 2024-12-17 16:35 | Outpatient (BNV) | payer MEDICARE, SELFPAY | PROVIDERS: PCP Internal Medicine; Visit Provider Radiology Diagnostic Radiology | DX: M19.011 Primary osteoarthritis, right shoulder (principal) | CPT/HCPCS: 73200 ==

== ENCOUNTER 2024-12-24 12:25 | Outpatient (REF) | payer MEDICARE, SELFPAY ==
[2024-12-24 12:27] LABS: MANUAL DIFF FLAG NO
[2024-12-24 12:41] LABS: Basophils Absolute Auto 0.1 X10*3/uL (0.0-0.2); Basophils Percent Auto 0.6 % (0-2); Eosinophils Absolute Auto 0.3 X10*3/uL (0.0-0.4); Eosinophils Percent Auto 3.1 % (0-4); Hematocrit 37.8 % (42.0-52.0); Hemoglobin 12.9 g/dl (14.0-18.0); Imm Gran Abs Auto 0.02 X10*3/uL (0.00-0.03); Imm Gran Pct Auto 0.2 % (0.0-0.4); Lymphocytes Absolute Auto 2.3 X10*3/uL (1.2-4.9); Mean Corpuscular HGB Conc 34.1 g/dl (31.0-36.0); Mean Corpuscular Hemoglobin 31.9 pg (27.0-33.0); Mean Corpuscular Volume 93.6 fL (80.0-98.0); Mean Platelet Volume 10.4 fL (9.4-12.4); Monocytes Absolute Auto 0.8 X10*3/uL (0.1-1.2); Monocytes Percent Auto 10.3 % (2-11); Neutrophils Absolute Auto 4.7 x10*3/uL (2.0-8.3); Neutrophils Percent Auto 57.8 % (45-73); Platelet Count 240 X10*3/uL (160-400); Red Blood Count 4.04 X10*6/uL (4.60-5.80); Red Cell Distribution Width 14.6 % (11.0-16.0); White Blood Count 8.2 X10*3/uL (4.8-10.8)
--- OUTSIDE RECORDS SUMMARY | 2024-12-24 12:52 | XMS_ITS | Patient Health Record ---
Author Organization Richard Castro MD Address [address] [place], [place] [phone] Care Team Providers Care Hansard Reporter Name Role Phone Richard Castro Primary Care Provider Allergies No Known Allergies Results Component Value Reference Range Notes Complete Blood Count Auto Di ff Reviewed date:07/03/2024 08:00:30 PM Interpretation: Performing Lab:[facility], [address] [place] [phone] Notes/Report: White Blood Count 7.5 4.8-10.8 X10*3/uL [...] NRBC Abs Auto 0.000 0.0-0.012 X10*3/uL Comprehensive [place]. Panel Fa st Reviewed date:07/03/2024 08:16:51 PM Interpretation: Performing Lab:[facility], [address] [place] [phone] Notes/Report: Sodium 138 135-145 mmol/L Potassium 4.1 [...] Panel Reviewed date:07/03/2024 08:01:49 PM Interpretation: Performing Lab:[facility], [address] [place] [phone] Notes/Report: Triglycerides 98 <150 mg/dL Desirable Triglyceride: [...] date:07/17/2024 04:52:07 PM Interpretation:see back 07-17-2024 Performing Lab:[facility], [address] [place] [phone] Notes/Report: PSA,Total (Free>4and<10) 5.94 0.00-4.00 ng/mL PSA methodology: Burgess Alinity i Chemiluminescent Microparticle Immunoassay (CMIA) UA ClnCatch+Micro w/rflx Cul t Reviewed date:07/03/2024 08:03:57 PM Interpretation: Performing Lab:[facility], [address] [place] [phone] Notes/Report: Urine, Clean Catch Color Urine Yellow Appearance Urine Clear PH 5.5 5.0-9.0 Glucose Urine UA Negative Negative mg/dL Urine Blood Negative Negative Specific [place] - Urine 1.015 1.005-1.025 Urine Protein Negative Neg-Trace mg/dL Urine Ketones Negative Negative mg/dL Nitrite Urine Negative Negative Leukocyte Esterase Urine Negative Negative RBC Urine 0-2 0-2 /HPF WBC Urine 0-5 0-5 /HPF Squamous Epithelial Cell Urine 0-2 0-2 /HPF Bacteria Urine None Seen None Seen Hyaline Casts Urine 0-2 0-2 /LPF Complete Blood Count Auto Di ff (Not yet reviewed by provider) Interpretation: Performing Lab:[facility], [address] [place] [phone] Notes/Report: White Blood Count 8.2 4.8-10.8 X10*3/uL [...] X10*3/uL NRBC Abs Auto 0.000 0.0-0.012 X10*3/uL Occult Blood, Stool, Guaiac Reviewed date:07/17/2024 02:27:21 PM Interpretation:Negative Performing Lab: Notes/Report: Negative Occult Blood, Stool, Guaiac Neg MR shoulder RT wo con Reviewed date:03/19/2024 02:09:45 PM Interpretation: Performing Lab: Notes/Report: [address] [address] Magnetic Resonance Report Signed Patient: Joselito Hurd MR#: [id number] 4 : 1950 Acct:[id number] Age/Sex: 74 / M ADM Date: 03/13/24 Loc: HO.MRI Attending Dr: Leslie Browning PA-C Ordering Physician: Leslie Browning PA-C Date of Service: 03/13/24 Procedure(s): MR shoulder RT wo con Accession Number(s): [id number] cc: Richard Castro MD; Leslie Browning PA-C [...] curved with no subacromial spur. There is wpue-vd-fggpyygq hypertrophic osteoarthritis of the acromioclavicular joint. LABRUM/CAPSULE: [...] interstitial partial tearing of the subscapularis. 4. Eljs-ho-mffhqvde hypertrophic osteoarthritis of the acromioclavicular joint. 5. Mild arthrosis of the glenohumeral joint. Dictated By: Domingo Mckeon MD Signed By: <Electronically signed by Domingo Mckeon MD in OV> 03/19/24 0741 DD/ 1740 TD/TT: Nursing Clerk: [place] [address] Magnetic Resonance Report Signed Patient: Flavia Hurd MR#: [id number] 4 : 1950 Acct:[id number] Age/Sex: 74 / M ADM Date: 03/13/24 Loc: HO.MRI Attending Dr: Leslie Browning PA-C Ordering Physician: Leslie Browning PA-C Date of Service: 03/13/24 Procedure(s): MR shoulder RT wo con Accession Number(s): [id number] cc: Richard Castro MD; Leslie Browning PA-C [...] with no subacromial spur. Th ere is qmxp-xx-ewadvtdq hypertrophic osteoarthritis of the acromioclavic ular joint. [...] interstitial partial tearing of the subscapularis. 4. Llqb-ac-epwxetyc hypertrophic osteoarthritis of the acromioclavicular joint. 5. Mild arthrosis of the glenohumeral joint. Dictated By: Domingo Mckeon MD Signed By: <Electronically signed by Domingo Mckeon MD in OV> 03/19/24 0741 DD/ 1740 TD/TT: Medical Physiologist ist: WG PSA Free and Total Reviewed date:07/23/2024 08:09:01 AM Interpretation:cback psa 07/17 Performing Lab:[facility], [address] [place] [phone] Notes/Report: Prostate Specific Ag Total 6.2 < OR = 4.0 ng/mL Percent Free Prostate Spec Ag 21 >25 % (calc) PSA(ng/mL) Free PSA(%) Estimated(x) Probability of Cancer(as%) 0-2.5 (*) Approx. 1 2.6-4.0(1) 0-27(2) 24(3) 4.1-10(4) 0-10 56 11-15 28 16-20 20 21-25 16 >or =26 8 >10(+) N/A >50 References:(1)[facility] crockett et al.:Urology 60: 469-474 (2001) (2)Caden et al.:J.Urol 168: 922-925 (2001) Free PSA(%) Sensitivity(%) Specificity(%) < or = 25 85 19 < or = 30 93 9 (3)Catalona et al.:MICHI 277: 6274-1400 (1996) (4)Catalona et al.:MICHI 279: 0699-0467 (1997) (x)These estimates vary with age, ethnicity, [...] mind. PSA was performed using the Zulema Peytona Immunoassay method. Values obtained from different assay methods cannot be used interchangeably. PSA levels, regardless of value, should not be interpreted as absolute evidence of the presence or absence of disease. THIS TEST WAS PERFORMED AT: [facility] [address] [place] [phone] CLAUS SEALS MD Free Prostate Spec Ag 1.3 CT shoulder RT wo con Reviewed date:12/19/2024 05:35:49 PM Interpretation: Performing Lab: Notes/Report: [address] [address] [address] Scan Report Signed Patient: Joselito Hurd Sr MR#: [id number] : 1950 Acct:[id number] Age/Sex: 74 / M ADM Date: 12/17/24 Loc: HO.CT Attending Dr: Js Marquez PA-C Ordering Physician: Js Marquez PA-C Date of Service: 12/17/24 Procedure(s): CT shoulder RT wo IV con Accession Number(s): [id number] cc: Richard Castro MD; Js Marquez PA-C Report Number: [id number]: Total DLP = 283.00 mGy-cm CLINICAL HISTORY: [...] in OV> 12/19/24913 DD/ 2 TD/TT: 12/19/24912 Nursing Clerk: [address] [address] [address] Scan Report Signed Patient: Flavia Hurd Sr MR#: [id number] : 1950 Acct:[id number] Age/Sex: 74 / M ADM Date: 12/17/24 Loc: HO.CT Attending Dr: Justino Marquez PA-C Ordering Physician: Js Marquez PA-C Date of Service: 12/17/24 Procedure(s): CT shoulder RT wo IV con Accession Number(s): [id number] cc: Richard Castro MD; Js Marquez PA-C Report Number: [id number]: Total DLP = 283.00 mGy-cm CLINICAL HISTORY: M12.819 - Other specific arthropathies, not elsewhere classified, unspec... --- Additional Notes or Special Instructions: PRe op planning Exam: CT of the righ t shoulder without intravenous contrast. Comparison: MRI March [...] in OV> 12/19/24913 DD/ 2 TD/TT: 12/19/24912 Nursing Clerk: Reason For Referral No Information Medications Medication SIG (Take, Route, Frequency, Duration) [...] nils l Orally Once a day Active Propranolol HCl ER 80 MG TAKE ONE CAPSUL E BY MOUTH ONCE DAILY for 30 Active Valtrex 1 GM 1 tablet Orally 3 times a day for 7 days 01/13/2021 Not-Taking Flecainide Acetate 150 MG 1 tablet Orall y every 12 hrs Active Tamsulosin HCl 0.4 MG 1 capsule Orally O nce a day Active Cyclobenzaprine HCl 5 MG 1 tablet as nee ded Orally Three times a day for 10 days 02/27/2019 Not-Taking Amoxicillin 500 MG 1 capsule Orally every 8 hrs for 10 day(s) 05/15/2018 Not-Taking Tylenol Extra Strength 500 MG 3 tablets orally every 6 hrs Not-Taking Ibuprofen 800 MG 1 tablet with food o r milk as needed Orally Three times a day for 30 days 02/27/2019 Not-Taking Immunizations Vaccine Route Administration Date Status [...] Problem Status W/U Status Risk Notes Problem 546127521 Neuropathy (G62.9) Active confirmed Problem 34669238 Prostatism (N40.0) Active confirmed Problem 581917528 Paroxysmal atria l fibrillation (I48.0) Active confirmed Problem 272753120 Essential tremor (G25.0) Active confirmed Problem 554640522488005 Erectile dysfunc tion due to arterial insufficiency (N52.01) Active confirmed Problem 90533727 Mitral valve dis order (I05.9) Active confirmed Problem Elevated LDL cholesterol level (E78.0) Active confirmed Problem 481802399 Non-rheumatic mi tral regurgitation (I34.0) Active confirmed Problem 207346615 Pure hypercholesterolemia (E78.00) Active confirmed Problem 883984916 Elevated PSA (R97.20) Active confirme d Problem 456254653 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 confirmed Problem 68523875 Hydronephrosis 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) Active confirmed Problem 508751322 Elevated serum cholesterol (E78.9) Active confirmed Problem 168709171 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 Vital Signs Blood pressure diastolic 70 mm Hg 12/24/2024 Height 70.50 in 12/24/2024 Blood pressure systolic 118 mm Hg 12/24/2024 Weight 200 lbs 12/24/2024 BMI 28.29 kg/m2 12/24/2024 Encounters Encounter Location Date Provider Diagnosis Richard Castro MD [address] [place] [phone] 07/03/2024 Richard Castro Elevated PSA R97.20 ; Encounter for immunization Z23 and Pure hypercholesterolemia E78.00 Richard Castro MD [address] [place] [phone] 12/24/2024 Richard Castro Preop examination Z0 1.818 and Mass in neck R22.1 Richard Castro MD [address] [place] [id number] 01/23/2024 Richard Castro Bronchitis J40 Richard Castro MD [address] [place] [id number] 07/17/2024 Richard Castro Essential tremor G25 .0 ; Pure hypercholesterolemia E78.00 ; Elevated PSA R97.20 ; Paroxysmal atrial fibrillation I48.0 ; Colon cancer screening Z12.11 and Depression screening Z13.31 Assessments Encounter Date Diagnosis (ICD Code) Assessment Notes Treatment Notes Treatment Clinical Notes Section Notes 07/03/2024 Elevated PSA (ICD-10 - R97.20) 07/03/2024 Encounter for immunization (ICD-10 - Z23) 12/24/2024 Preop examination (ICD-10 - Z01.818) at this point i don't find anything medically to prevent his shoulder surgery if cleared by 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 Panel 12/24/2024 US soft tiss head and/or neck 12/24/2024 Future Test Test Name Order Date US RENAL BILATERAL 07/29/2021 Next Appt Details Provider Name:Richard Chatman ier, 07/05/2025 07:30:00 AM, [address] [place] [address], [address], [phone], Provider Name:Richard Jose Chatman ier, 07/18/2025 01:00:00 PM, [address] [place] [address], [place] [address], [place], [place], [phone], Insurance Providers Payer Name Payer Address Payer Phone Subscriber Number Group Number Insured Name Patient Relationship to Insured Coverage Start Date Coverage End Date MEDICARE NHIC [address] [place] [address] [id number] Joselito Hurd Self - patient is the insured MED[employer] BCBS OF [employer] [address] [place] [phone] [id number] Joselito Hurd Self - patient is the [...]
--- OUTSIDE RECORDS SUMMARY | 2024-12-24 12:52 | XMS_ITS ---
Author Organization Richard Castro MD Address [address] [place] [phone] Care Team Providers Care Donation Specialist Name Role Phone Richard Castro Primary [...] Date Provider Diagnosis Richard Castro MD [address] [place] [address] [address] [place], [place] [phone] 07/17/2024 Richard Castro Essential tremor G25 .0 [...] or maybe wait/ get last note from [facility] 07/17/2024 Colon cancer screeni ng (ICD-10 [...] or maybe wait/ get last note from [facility] Colon cancer screening guaiac negative Depression screening negative screen Next Appt Details Follow Up: 1 Year, Reason: Provider Name:Richard escamilla, 07/05/2025 07:30:00 AM, [address] [place] [address], [address] [place] [address], [phone], Provider Name:Richard escamilla, 07/18/2025 01:00:00 PM, [address] [place] [address], [place] [address], [place], [place], [phone], Progress Notes * Joselito HURD ADOB:[birth year] (74 yo M)Acc No.[id number]:07/17/2024 Patient:?Joselito Hurd Provider:?Richard Castro MD :1950???Age:74 Y???Sex:Male Vasquez e:07/17/2024 [id number] Subjective: * Chief Complaints: * ???Review labsCBACK [...] Pets: none. no Travel outside of the [place]. * Medications:?TakingCartia XT 120 MG Capsule [...] Verified] Objective: * Vitals:?Ht: 70.50, Wt:201, B VA:28.43, BP:118/74 weight is up 5 pounds since 01-23-24. * ???Past Orders: ???Lab:[facility] [place]. P chuck Fast (Order Date - 07/03/2024) [...] mg/dL ?Urine Blood Negative Negative - ?Specific [place] - Urine 1.015 1.005-1.025 - ?Urine Protein [...] or maybe wait/ get last note from [facility]?? 3.?Colon cancer screening?LAB: Occult Blood, Stool, Guaiac?Negative ? Value Reference Range ?Occult Blood, Stool, Guaiac Neg Notes: guaiac negative??4.?Depression screening? Notes: negative screen?? * Procedure Codes:?67352 TEST FOR BLOOD, FECES * Follow Up:?1 Year * * Sign off status: Completed true * Provider:?Richard Castro MD Date:?1 09/17/2023 Generated for Silviai adrienne/Amandeep/eTransmitting on:?12/24/2024 12:52 PM EDT History and Physical Notes * [...]
--- OUTSIDE RECORDS SUMMARY | 2024-12-24 12:52 | XMS_ITS ---
Author Organization Richard Castro MD Address [address] [place], [place] [phone] Care Team Providers Care Framing Machine Tender Name Role Phone Richard Castro Primary Care Provider Results Component Value Reference Range Notes Complete Blood Count Auto Di ff Reviewed date:07/03/2024 08:00:30 PM Interpretation: Performing Lab:[facility], [address] [place] [phone] Notes/Report: White Blood Count 7.5 4.8-10.8 X10*3/uL [...] NRBC Abs Auto 0.000 0.0-0.012 X10*3/uL Comprehensive [place]. Panel Fa st Reviewed date:07/03/2024 08:16:51 PM Interpretation: Performing Lab:[facility], [address] [place] [phone] Notes/Report: Sodium 138 135-145 mmol/L Potassium 4.1 [...] Panel Reviewed date:07/03/2024 08:01:49 PM Interpretation: Performing Lab:[facility], [address] [place] [phone] Notes/Report: Triglycerides 98 <150 mg/dL Desirable Triglyceride: [...] date:07/17/2024 04:52:07 PM Interpretation:see back 07-17-2024 Performing Lab:[facility], [address] [place] [phone] Notes/Report: PSA,Total (Free>4and<10) 5.94 0.00-4.00 ng/mL PSA methodology: Burgess Alinity i Chemiluminescent Microparticle Immunoassay (CMIA) UA ClnCatch+Micro w/rflx Cul t Reviewed date:07/03/2024 08:03:57 PM Interpretation: Performing Lab:[facility], [address] [place] [phone] Notes/Report: Urine, Clean Catch Color Urine Yellow Appearance Urine Clear PH 5.5 5.0-9.0 Glucose Urine UA Negative Negative mg/dL Urine Blood Negative Negative Specific [place] - Urine 1.015 1.005-1.025 Urine Protein Negative [...] Date Provider Diagnosis Richard Castro MD [address] [place], [place] [phone] 07/03/2024 Richard Castro Elevated PSA R97.20 ; Encounter for immunization Z23 and Pure hypercholesterolemia E78.00 Assessments Encounter Date Diagnosis (ICD Code) Assessment Notes Treatment Notes Treatment Clinical Notes Section Notes 07/03/2024 Elevated PSA (ICD-10 - R97.20) 07/03/2024 Encounter for immunization (ICD-10 - Z23) 07/03/2024 Pure hypercholesterolemia (ICD-10 - E78.00) Plan Of Treatment Next Appt Details Provider Name:Richard Chatman ier, 07/05/2025 07:30:00 AM, [address] [place] [address], [address], [phone], Provider Name:Richard Chatman ier, 07/18/2025 01:00:00 PM, [address] [place] [address], [place] [address], [place], [place], [phone], Progress Notes * Joselito HURD ADOB:[birth year] (74 yo M)Acc No.[id number]:07/03/2024 Progress Note Patient:?Joselito HURD Provider:?Richard Castro MD :1950???Age:74 Y???Sex:Male Vasquez e:07/03/2024 Address:[address] [place], [place] [phone] Subjective: * Chief Complaints: * ???1. FASTING [...] Time - 07/03/2024 08:30 AM) ?LAB: [facility] [place]. Panel Fast (Collection Date & Time - [...] Office Staff on Left Deltoid * Procedure Codes:?50690 FLU V ACC PRSV FREE INC ANTIG, G0008 ADMN FLU VAC NO FEE SCHED SAME DAY, 07326 VENIPUNCT, ROUTINE* * * The named appointment provid er may or may not be the originator of this progress note, and it is not deemed complete until electronically signed by the appointment provider. Sign off status: Pending * Provider:?Richard Castro MD Date:?09/02/2023 Generated for Per deleon/Amandeep/Malindaitting on:?12/24/2024 12:51 PM EDT
--- OUTSIDE RECORDS SUMMARY | 2024-12-24 12:52 | XMS_ITS ---
Author Organization Richard Castro MD Address [address] [place], [place] [phone] Care Team Providers Care Integrated Program Teacher Name Role Phone Richard Castro Primary Care Provider [phone] Allergies No Known Allergies Results Component Value Reference Range Notes Complete Blood Count Auto Di ff (Not yet reviewed by provider) Interpretation: Performing Lab:[facility], [address] [place] [phone] Notes/Report: White Blood Count 8.2 4.8-10.8 X10*3/uL [...] X10*3/uL NRBC Abs Auto 0.000 0.0-0.012 X10*3/uL REASON FOR VISIT r shoulder DR Thomas 02-12-25 needs CBC BMP EKG going to Pin Drafting Machine Tender 01-01-25 to be cleared, Patientfound a mass [...] Location Date Provider Diagnosis Richard Castro MD [address] [place] [address] [address] [place], [place] [phone] 12/24/2024 Richard Castro Preop examination Z01.818 and Mass in neck R22.1 Assessments Encounter Date Diagnosis (ICD Code) Assessment Notes Treatment Notes Treatment Clinical Notes Section Notes 12/24/2024 Preop examination (ICD-10 - Z01.818) at this point i don't find anything medically to prevent his shoulder surgery if cleared by his whiskey proof reader 12/24/2024 Mass in neck (ICD-10 - R22.1) THE ORDER WAS FAXED TO [facility], pending diagnsotic testing Plan Of Treatment Treatment Notes Assessment Notes Preop examination at this point i don' t find anything medically to prevent his shoulder surgery if cleared by his whiskey proof reader Mass in neck THE ORDER WAS FAXED TO [facility], pending diagnsotic testing Pending Test Test Name Order Date Complete Blood Count Auto Diff Comprehensive Met. Panel 12/24/2024 US soft tiss head and/or neck 12/24/2024 Next Appt Details Follow Up: after us, Reason: Provider Name:Richard escamilla, 07/05/2025 07:30:00 AM, [address] [place] [address], [address], [place], [place], [phone], Provider Name:Richard escamilla, 07/18/2025 01:00:00 PM, [address] [place] [address], [address], [place], [place], [phone], Progress Notes * Joselito HURD ADOB:[birth year] (74 yo M)Acc No.[id number]:12/24/2024 Patient:Joselito PEREA Provider:?Richard Castro MD :1950???Age:74 Y???Sex:Male Vasquez e:12/24/2024 Address:[address] [place], [place] [address]kareem [facility] Subjective: * Chief Complaints: * ???1. r shoulder DR Thomas 02-12-25 needs CBC BMP EKG going to Pin Drafting Machine Tender 01-01-25 to be cleared. 2. Patient found a mass behind his right ear 1 week ago. * HPI: ???Symptom(s):?patient is a 74 yo male/ having shoulder replacement/ found lump behind ear one week ago. ???Fall Risk:?History?Have you had any falls with injury in the past year??Yes stepped i a puddle of water and slipped and fell onto his right side. went to Urgent on [address]?Have you had two or more falls in the past year??No.? * ROS:?General/Constitutional:?Denies?Chills.?Denies?Fatigue.?Denies?Fever.?Denies?Headache.?ENT:?Patient denies?decreased sense of smell, any loss of taste, sore throat.?Denies?Sore throat.?Respiratory:?Denies?Cough.?Denies?Shortness of breath at rest.?Denies?Shortness of breath with exertion.?Gastrointestinal:?Denies?Diarrhea.?Denies?Nausea.?Musculoskeletal:?Patient denies?muscle aches.?Peripheral Vascular:?Patient denies?red and blue toes.? * Medical History:?Colonoscopy - done 10/30/[address] Juan David mandel in 10 years, Elevated LDL cholesterol level, Elevated LDL cholesterol level, Biopsy of prostate neg 2008, History of syncope, Monroe score 1 in 2021. * Medications:?Taking Cartia X T 120 MG [...] ONE CAPSULE BY MOUTH ONCE DAILY , Not-Taking/PRN Valtrex 1 GM Tablet 1 [...] or milk Orally Three times a day , Medication List reviewed and reconciled with the patient * Allergies:?N.K.D.A. Objective: * Vitals:?Ht: 70.50, Wt: 200, BMI:28.29, BP:118/70, Wt-k.72. * Examination: ???General Examination: ?GENERAL APPEARANCE:?alert, well hydrated, in no distress.?HEAD:?normocephalic.?EYES:?extraocular movement full and smooth.?THROAT:?no erythema, no exudate, pharynx normal.?NECK/THYROID:?abnormal with a mass in rt submandibular area about 2 inches in diameter. hard and irregular.?LYMPH NODES:?no axillary, supraclavicular or inguinal adenopathy.?SKIN:?good turgor.?HEART:?no murmurs, rubs, gallops, regular rate and rhythm.?LUNGS:?no wheezes, rales, rhonchi, good air movement, clear to auscultation bilaterally.?ABDOMEN:?no hepatosplenomegaly, soft, nontender, nondistended.? Assessment: * Assessment: 1.?Preop examination - Z01.8 18 (Primary)???2.?Mass in neck - R22.1??? Plan: * Treatment: 2.?Mass in neck?Imaging: US soft tiss head and/or neck Notes: THE ORDER WAS FAXED TO [facility], pending diagnsotic testing?? * Procedure Codes:?06887 VENIP UNCT, ROUTINE* * Follow Up:?after us * * The named appointment provid er may or may not be the originator of this progress note, and it is not deemed complete until electronically signed by the appointment provider. Sign off status: Pending * Provider:?Richard Castro MD Date:?0 12/24/2024 Generated for Per deleon/Amandeep/eTransmitting on:?12/24/2024 12:52 PM EDT History and Physical [...] his right side. went to Urgent on [address]. Have you had two or more [...]
[2024-12-24 13:31] LABS: Alanine Aminotransferase 26 U/L (0-40); Albumin Level 3.8 g/dL (3.5-5.0); Anion Gap 10 (12-20); Aspartate Amino Transferase 33 U/L (5-37); Bilirubin Total 0.4 mg/dL (0.0-1.0); Blood Urea Nitrogen 19 mg/dL (9-16); Calcium 9.1 mg/dL (8.4-10.2); Carbon Dioxide 26 mmol/L (22-29); Chloride 105 mmol/L (96-108); Estimated Glomerular Filt Rate > 60; Glucose Random 99 mg/dL (60-115); Potassium 4.2 mmol/L (3.3-5.1); Sodium 137 mmol/L (135-145); Total Protein 6.7 g/dL (6.5-8.0)
[2024-12-24 15:16] LABS: Alkaline Phosphatase 83 U/L (39-117)
== END 2024-12-24 12:26 | disposition home or self-care (01) ==
LOC: HO.LNP 12:25
PROVIDERS: Visit Provider Internal Medicine
DX: Z01.818 Encounter for other preprocedural examination (principal)
CPT/HCPCS: 80053; 85025

== ENCOUNTER → 2025-01-29 08:52 | Outpatient (BNVA) | payer MEDICARE, SELFPAY | PROVIDERS: PCP Internal Medicine | DX: Z01.818 Encounter for other preprocedural examination (principal) ==

== ENCOUNTER → 2025-02-01 13:51 | Outpatient (REF) | payer MEDICARE, SELFPAY ==
--- NOTE | 2025-02-01 13:54 | CA_ITS ---
Transthoracic Echocardiogram Patient (Last, First, Middle): Joselito Hurd, Gender: Male Date of : 1950 Age: 74 Procedure Date: 02/01/2025 Procedure Type: Transthoracic Echocardiogram Location: OP Height: 180.34 cm Weight: 89.81 kg BSA: 2.10 m2 Heart Rate: bpm BP: 128 / 70 mmHg Hand Paint Mixer: TO Referring MD: Js Marquez PA-C Symptoms: Z01.818 - Encounter for other preprocedural examination Study Quality: Adequate Conclusions: - Normal left ventricular cavity size. There is normal left ventricular wall thickness. The left ventricular systolic function is borderline reduced. The visually estimated ejection fraction is between 45-50%. - E/E prime ratio is between 8 and 15 consistent with indeterminate filling pressures. - The basal inferior segment is akinetic. - Mildly increased right ventricular cavity size. There is normal right ventricular systolic function. - The left atrium is moderately dilated. - There is mild dilatation of the sinuses of Valsalva measuring 4.21 cm and mild dilatation of the ascending aorta measuring 4.10 cm. Findings Left Ventricle Normal left ventricular cavity size. There is normal left ventricular wall thickness. The left ventricular systolic function is borderline reduced. The visually estimated ejection fraction is between 45-50%. There is evidence of regional wall motion abnormalities. Abnormal diastolic function is noted. Spectral Doppler is indicative of a pseudonormal filling pattern. E/E prime ratio is between 8 and 15 consistent with indeterminate filling pressures. Wall Motion Rest Echo Findings The basal inferior segment is akinetic. Right Ventricle Mildly increased right ventricular cavity size. There is normal right ventricular systolic function. Atria The left atrium is moderately dilated. The right atrium is normal in size. Aortic Valve Normal aortic valve structure and function. There is no aortic valve stenosis. There is trace (trivial) aortic valve regurgitation. Mitral Valve The mitral valve appears normal. There is trace mitral valve regurgitation. There is no mitral valve stenosis. Pulmonic Valve The pulmonic valve is normal. There is trace pulmonic valve regurgitation. Tricuspid Valve Normal tricuspid valve structure. There is trace tricuspid valve regurgitation. Great Vessels There is mild dilatation of the sinuses of Valsalva measuring 4.21 cm and mild dilatation of the ascending aorta measuring 4.10 cm. The visualized portions of the pulmonary artery and branches are normal. Venous The inferior vena cava is normal in size and collapses greater than 50% with inspiration. Pericardium/Pleural There is no evidence of pericardial effusion. Prior Study Comparison No prior study available for comparison. Measurements 2D Linear Measurements IVSd: 1.08 0.6-0.9/0.6-1.0 cm LVIDd: 4.99 3.9-5.3/4.2-5.9 cm LVIDd Index: 2.38 2.4-3.2/2.2-3.1 cm/m2 LVIDs: 3.30 2.0-3.6 cm LVPWd: 0.82 0.7-1.1 cm LA Diam: 3.80 2.7-3.8/3.0-4.0 cm LAIDs Index: 1.81 1.5-2.3 cm/m2 LV Mass: 210.20 67-162/88-224 g LV Mass Index: 100.10 43-95/49-115 g/m2 LVOT Diam: 2.20 3.0+(-)1.3 cm 2D Systolic Function EF 4C: 47.90 >55% EF 2C: 52.90 >55% EF BiP: 50.40 >55% Mitral Valve MV Pk E: 0.64 MV PK A: 0.53 MV Decel Time: 238.00 E/A: 1.20 E'Lateral: 8.38 E'Medial: 4.03 E/E' Med: 15.80 E/E' Lat: 7.60 PHT: 70.00 MVA PHT: 3.14 Decel Bol[place]ar: 2.69 Aortic Valve AoV Pk Tarun: 1.03 AoV Mn Tarun: 0.75 AoV VTI: 0.25 AoV Pk Grad: 4.00 Aov Mn Grad: 3.00 SHAWN Cont.VTI: 3.17 LVOT LVOT Pk Tarun: 0.88 LVOT Mn Tarun: 0.62 LVOT VTI: 0.21 LVOT Pk Grad: 3.00 LVOT Mn Grad: 2.00 LVOT Diam: 2.20 LVOT Area: 3.80 Diastolic Function MV Pk E: 0.64 MV Pk A: 0.53 E/A: 1.20 E'Medial: 4.03 E/E' Med: 15.80 E' Laterial: 8.38 E/E' Lat: 7.60 Right Ventricle TAPSE (mm): 22.60 TVS' Tarun: 11.00 Tricuspid Valve TR Pk Tarun: 2.31 TR Pk Grad: 21.00 RA Press: 3.00 RVSP: 24.00 Great Vessels Aorta Sinus of Valsalva: 4.21 2.0-3.[address] Ridge: 3.11 1.7-3.4 cm Ao Asc: 4.10 2.1-3.4 cm Ao Arch: 3.60 Updated in Other Vendor System with Status of Final Aubrey Glover MD electronically signed on 02/03/2025 1:10:00 PM with status of Final
--- OUTSIDE RECORDS SUMMARY | 2025-02-01 13:54 | XMS_ITS | Patient Health Record ---
Author Organization Richard Castro MD Address [address] [place], [place] [id number] Care Team Providers Care Visitor Services Representative Name Role Phone Richard Castro Primary Care Provider [phone] Allergies No Known Allergies Results Component Value Reference Range Notes Complete Blood Count Auto Di ff Reviewed date:07/03/2024 08:00:30 PM Interpretation: Performing Lab:[facility], [address] [place] [phone] Notes/Report: White Blood Count 7.5 4.8-10.8 X10*3/uL [...] NRBC Abs Auto 0.000 0.0-0.012 X10*3/uL Comprehensive [place]. Panel Fa st Reviewed date:07/03/2024 08:16:51 PM Interpretation: Performing Lab:[facility], [address] [place] [phone] Notes/Report: Sodium 138 135-145 mmol/L Potassium 4.1 [...] Panel Reviewed date:07/03/2024 08:01:49 PM Interpretation: Performing Lab:[facility], [address] [place] [phone] Notes/Report: Triglycerides 98 <150 mg/dL Desirable Triglyceride: [...] date:07/17/2024 04:52:07 PM Interpretation:see back 07-17-2024 Performing Lab:[facility], [address] [place] [phone] Notes/Report: PSA,Total (Free>4and<10) 5.94 0.00-4.00 ng/mL PSA methodology: Burgess Alinity i Chemiluminescent Microparticle Immunoassay (CMIA) UA ClnCatch+Micro w/rflx Cul t Reviewed date:07/03/2024 08:03:57 PM Interpretation: Performing Lab:[facility], [address] [place] [phone] Notes/Report: Urine, Clean Catch Color Urine Yellow Appearance Urine Clear PH 5.5 5.0-9.0 Glucose Urine UA Negative Negative mg/dL Urine Blood Negative Negative Specific [place] - Urine 1.015 1.005-1.025 Urine Protein Negative [...] Notes/Report: Negative Occult Blood, Stool, Guaiac Neg Complete Blood Count Auto Di ff Reviewed date:12/24/2024 05:16:55 PM Interpretation: Performing Lab:[facility], [address] [place] [phone] Notes/Report: White Blood Count 8.2 4.8-10.8 X10*3/uL [...] Panel Reviewed date:12/24/2024 05:16:08 PM Interpretation: Performing Lab:[facility], [address] [place] [phone] Notes/Report: Sodium 137 135-145 mmol/L Potassium 4.2 [...] 3.5-5.0 g/dL Alkaline Phosphatase 83 39-117 U/L MR shoulder RT wo con Reviewed date:03/19/2024 02:09:45 PM Interpretation: Performing Lab: Notes/Report: [address] [address] Magnetic Resonance Report Signed Patient: Joselito Hurd MR#: [id number] 4 : 1950 Acct:[id number] Age/Sex: 74 / M ADM Date: 03/13/24 Loc: HO.MRI Attending Dr: Leslie Browning PA-C Ordering Physician: Leslie Browning PA-C Date of Service: 03/13/24 Procedure(s): MR shoulder RT wo con Accession Number(s): [id number] cc: Richard Castro MD; Leslie Browning PA-C [...] curved with no subacromial spur. There is hbwg-kd-grzbjyby hypertrophic osteoarthritis of the acromioclavicular joint. LABRUM/CAPSULE: [...] interstitial partial tearing of the subscapularis. 4. Oild-dn-xnvkiexm hypertrophic osteoarthritis of the acromioclavicular joint. 5. Mild arthrosis of the glenohumeral joint. Dictated By: Domingo Mckeon MD Signed By: <Electronically signed by Domingo Mckeon MD in OV> 03/19/24 0741 DD/ 1740 TD/TT: Production Checker: CIELO [address] [address] Magnetic Resonance Report Signed Patient: Flavia Hurd MR#: [id number] 4 : 1950 Acct:[id number] Age/Sex: 74 / M ADM Date: 03/13/24 Loc: HO.MRI Attending Dr: Leslie Browning PA-C Ordering Physician: Leslie Browning PA-C Date of Service: 03/13/24 Procedure(s): MR shoulder RT wo con Accession Number(s): [id number] cc: Richard Castro MD; Leslie Browning PA-C [...] with no subacromial spur. Th ere is cdvq-mh-rcgfoukm hypertrophic osteoarthritis of the acromioclavic ular joint. [...] interstitial partial tearing of the subscapularis. 4. Xpin-zy-ymfthuhb hypertrophic osteoarthritis of the acromioclavicular joint. 5. Mild arthrosis of the glenohumeral joint. Dictated By: Domingo Mckeon MD Signed By: <Electronically signed by Domingo Mckeon MD in OV> 03/19/24 0741 DD/ 1740 TD/TT: Automation Technician ist: WG PSA Free and Total Reviewed date:07/23/2024 08:09:01 AM Interpretation:cback psa 07/17 Performing Lab:[facility], [address] [place] [phone] Notes/Report: Prostate Specific Ag Total 6.2 < OR = 4.0 ng/mL Percent Free Prostate Spec Ag 21 >25 % (calc) PSA(ng/mL) Free PSA(%) Estimated(x) Probability of Cancer(as%) 0-2.5 (*) Approx. 1 2.6-4.0(1) 0-27(2) 24(3) 4.1-10(4) 0-10 56 11-15 28 16-20 20 21-25 16 >or =26 8 >10(+) N/A >50 References:(1)[facility] crockett et al.:Urology 60: 469-474 (2002) (2)Caden et al.:J.Urol 168: 922-925 (2001) Free PSA(%) Sensitivity(%) Specificity(%) < or = 25 85 19 < or = 30 93 9 (3)Jasonona et al.:MICHI 277: 7800-5052 (1996) (4)Catalona et al.:MICHI 279: 6326-3905 (1997) (x)These estimates vary with age, ethnicity, [...] mind. PSA was performed using the Zulema Cygnet Immunoassay method. Values obtained from different assay methods cannot be used interchangeably. PSA levels, regardless of value, should not be interpreted as absolute evidence of the presence or absence of disease. THIS TEST WAS PERFORMED AT: [facility] [address] [place] [phone] CLAUS SEALS MD Free Prostate Spec Ag 1.3 CT shoulder RT wo con Reviewed date:12/19/2024 05:35:49 PM Interpretation: Performing Lab: Notes/Report: [place] [address] CT Scan Report Signed Patient: Joselito Hurd Sr MR#: [id number] : 1950 Acct:[id number] Age/Sex: 74 / M ADM Date: 12/17/24 Loc: HO.CT Attending Dr: Js Marquez PA-C Ordering Physician: Js Marquez PA-C Date of Service: 12/17/24 Procedure(s): CT shoulder RT wo IV con Accession Number(s): [id number] cc: Richard Castro MD; Js Marquez PA-C Report Number: [id number]: Total DLP = 283.00 mGy-cm CLINICAL HISTORY: [...] in OV> 12/19/24913 DD/ 2 TD/TT: 12/19/24912 Production Checker: [place] [address] CT Scan Report Signed Patient: Flavia Hurd Sr MR#: [id number] : 1950 Acct:[id number] Age/Sex: 74 / M ADM Date: 12/17/24 Loc: HO.CT Attending Dr: Justino Marquez PA-C Ordering Physician: Js Marquez PA-C Date of Service: 12/17/24 Procedure(s): CT shoulder RT wo IV con Accession Number(s): [id number] cc: Richard Castro MD; Js Marquez PA-C Report Number: [id number]: Total DLP = 283.00 mGy-cm CLINICAL HISTORY: [...] in OV> 12/19/24913 DD/ 2 TD/TT: 12/19/24912 Production Checker: MRSA Nasal Screen Reviewed date:01/29/2025 05:00:18 PM Interpretation: Performing Lab:[facility], [address] [place] [phone] Notes/Report: MRSA Nasal PCR NEGATIVE Negative SA Nasal PCR NEGATIVE Negative MRSA Interpretation SEE NOTE MRSA target DNA not detected; SA target DNA not detected. A MRSA NEGATIVE, SA NEGATIVE test result does not preclude MRSA or SA nasal colonization. Reason For Referral No Information Medications Medication [...] Problem Status W/U Status Risk Notes Problem 194503461 Neuropathy (G62.9) Active confirmed Problem 42269362 Prostatism (N40.0) Active confirmed Problem 676569007 Paroxysmal atria l fibrillation (I48.0) Active confirmed Problem 229414371 Essential tremor (G25.0) Active confirmed Problem 254014515779418 Erectile dysfunc tion due to arterial insufficiency (N52.01) Active confirmed Problem 88340129 Mitral valve dis order (I05.9) Active confirmed Problem Elevated LDL cholesterol level (E78.0) Active confirmed Problem 282075421 Non-rheumatic mi tral regurgitation (I34.0) Active confirmed Problem 686345492 Pure hypercholesterolemia (E78.00) Active confirmed Problem 403185314 Elevated PSA (R97.20) Active confirme d Problem 911391835 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 confirmed Problem 52697292 Hydronephrosis 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) Active confirmed Problem 090702324 Elevated serum cholesterol (E78.9) Active confirmed Problem 666937365 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 Vital Signs Blood pressure diastolic 70 mm Hg 12/24/2024 Height 70.50 in 12/24/2024 Blood pressure systolic 118 mm Hg 12/24/2024 Weight 200 lbs 12/24/2024 BMI 28.29 kg/m2 12/24/2024 Encounters Encounter Location Date Provider Diagnosis Richard Castro MD [address] [place] [address] Drive [address] [place] [id number] 07/03/2024 Richard Castro Elevated PSA R97.20 ; Encounter for immunization Z23 and Pure hypercholesterolemia E78.00 Richard Castro MD [address] [place] [id number] 07/17/2024 Richard Castro Essential tremor G25 .0 ; Pure hypercholesterolemia E78.00 ; Elevated PSA R97.20 ; Paroxysmal atrial fibrillation I48.0 ; Colon cancer screening Z12.11 and Depression screening Z13.31 Richard Castro MD [address] [place] [id number] 12/24/2024 Richard Castro Mass in neck R22.1 ; Right shoulder pain, unspecified chronicity M25.511 and Preop examination Z01.818 Richard Castro MD [address] [place] [id number] 01/15/2025 Richard Castro Assessments Encounter Date Diagnosis (ICD Code) Assessment Notes Treatment Notes Treatment Clinical Notes Section Notes 07/03/2024 Elevated PSA (ICD-10 - R97.20) 07/03/2024 Encounter for immunization (ICD-10 - Z23) 07/17/2024 Essential tremor (ICD-10 - G25.0) 07/17/2024 Pure hypercholesterolemia (ICD-10 - E78.00) 12/24/2024 Mass in neck (ICD-10 - R22.1) THE ORDER WAS FAXED TO [facility], pending diagnsotic testing 12/24/2024 Right shoulder pain, unspecified chronicity (ICD-10 - M25.511) 07/03/2024 Pure hypercholesterolemia (ICD-10 - E78.00) 07/17/2024 Elevated PSA (ICD-10 - R97.20) had been over 6 4 y ears ago followed by urology. 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 he is going to think about it and get back to me or maybe wait/ get last note from [facility] 07/17/2024 Colon cancer screeni ng (ICD-10 - Z12.11) guaiac negative 07/17/2024 Depression screening (ICD-10 - Z13.31) negative screen Plan Of Treatment Pending Test Test Name Order Date US RENAL BILATERAL 07/17/2020 US RENAL BILATERAL 07/24/2020 US soft tiss head and/or neck 12/24/2024 Future Test Test Name Order Date US RENAL BILATERAL 07/29/2021 Next Appt Details Provider Name:Richard Chatman ier, 07/05/2025 07:30:00 AM, [address], [address], [place], [place], [id number], Provider Name:Richard Chatman ier, 07/18/2025 01:00:00 PM, [address], [address], [place], [place], [id number], Insurance Providers Payer Name Payer Address Payer Phone Subscriber Number Group Number Insured Name Patient Relationship to Insured Coverage Start Date Coverage End Date MEDICARE NHIC [address] [place] [address] [id number] Joselito Hurd Self - patient is the insured MEDEX BCBS OF [facility] [address] [place] [address] [id number] Joselito Hurd Self - patient is the [...]
== END ==
LOC: HO.CARD 13:51
PROVIDERS: PCP Internal Medicine; Visit Provider Physician Assistant
DX: Z01.818 Encounter for other preprocedural examination (principal)
CPT/HCPCS: 93306

== ENCOUNTER → 2025-02-01 13:54 | Outpatient (BNV) | payer MEDICARE, SELFPAY | PROVIDERS: PCP Internal Medicine; Visit Provider Internal Medicine Cardiovascular Disease | DX: I51.7 Cardiomegaly (principal); I51.89 Other ill-defined heart diseases | CPT/HCPCS: 93306 ==

== ENCOUNTER 2025-02-21 08:54 | Outpatient (AMB) | payer MEDICARE, SELFPAY ==
--- NOTE | 2025-02-21 09:14 | MHC.OFFVIS ---
Intake Visit Reasons: Pre-Op: r RTSA w/NE 02/26/25 Intake Note: Joselito is a 74 year old male who presents today for a preoperative visit to discuss RT RTSA on 02/26/[address] Thomas. Pain management agreement reviewed and signed. Patient was sent for an X ray 01/05, MRI 03/[address] 12/19/24. Allergies No Known Allergies (No Known Allergies*) Allergy (Verified 02/21/25 09:16) Medication List - Last Reconciled 02/21/25 by Js Marquez PA-C diltiazem HCl CD (Cartia XT) 120 mg PO DAILY flecainide 150 mg PO DAILY propranolol ER 80 mg PO NEEDED PRN rivaroxaban (Xarelto) 20 mg PO QPM tamsulosin 0.4 mg PO DAILY HPI Comments Details: Mr Vannessa Houser presents to the office today for preop visit. He is scheduled for reverse right total shoulder arthroplasty with Dr. Thomas. He continues to have ongoing pain and difficulty with in the right shoulder, which is affecting his quality of life; therefore, he has elected to move forward with surgery. 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) Acute UTI Sepsis Calculus, renal Hydronephrosis Surgical History (Updated 01/29/25 @ 12:03 by Marcy Obregon RN) Hx of colonoscopy Hx of repair of right rotator cuff (~2014) History of left inguinal hernia repair (~2020) History of right inguinal hernia repair (08/28/18) History of bilateral inguinal hernia repair (06/28/17) History of arthroscopy of left knee Family History Father Throat cancer Mother Melanoma Leukemia Social History (Updated 01/29/25 @ 12:20 by Marcy Obregon RN) Household Members: Spouse and Family Housing: House Are you a primary day care aide to a significant other at home: No Do you presently have visiting nurse or other home services: No 75 years or older and lives alone: No Comment: hematoma right thigh, resolved no fracture with 12/2024 fall, no head strike Patient Tobacco Use Status: Former Tobacco user Tobacco use type: Cigarette service: Yes Current occupational status: retired Review of Systems Const All systems reviewed & are unremarkable except as noted in HPI and below Physical Exam Const General: cooperative, healthy appearing, comfortable, no acute distress, well developed and alert Orientation/consciousness: patient oriented x3 HEENT Head: Yes normal to inspection, Yes normocephalic and Yes atraumatic Eyes General: appearance normal, both eyes and all related structures Alignment and Position: alignment normal Conjunctivae: conjunctivae normal EOM: EOMs intact bilaterally Neck Neck: Yes normal visual inspection and Yes no lymphadenopathy Resp Other: No rerpiratory distress Effort & Inspection: normal respiratory effort and able to speak in complete sentences Cardio Other: Palpable radial pulse with no appreciable rythmic abnormalities Rate: regular rate Peripheral pulses: Peripheral pulses 2+ throughout GI Other: No abdominal distension Inspection: Yes normal to inspection Palpation (GI): Soft to palpation Back/Spine/Pelvis Cervical Spine: normal cervical lordosis and cervical ROM normal Skin General skin exam: no rashes or lesions noted Neuro General: patient oriented x3 Extrem Other: Right shoulder skin intact On exam he has full passive range of motion When controlling for scapular recruitment he has 45 degrees of active abduction at best. There is recruitment required to get his hand to his mouth. He has a intact deltoid and sensation intact to light touch over the lateral aspect of the deltoid. 4-/5 empty can Psych Appearance: grossly normal Mental Status: mental status grossly normal Assessment & Plan Assessment & Plan (1) Rotator cuff arthropathy of right shoulder: Code(s): M12.811 - Other specific arthropathies, not elsewhere classified, right shoulder Category: Medical Plan: I discussed in detail the procedure and what to expect pre and post operatively.? We discussed the risks, benefits and alternatives to the surgery as well as the rehabilitation course. The risks; which include, but are not limited to infection, bleeding, nerve injury, ongoing pain, swelling, and stiffness, perioperative risk of injury to bones and soft tissues, and blood clots. ? I?ve answered all questions and with their understanding they have consented to move forward with reverse Right total shoulder arthroplasty with Dr. Thomas His plan is to attend [facility] post op, he was given an order today to call and book an appt for after 03/14/25- I will provide him with the Protocol at his fist post op appt He was fit for a sling while in the office today Orders: Orders Basic Metabolic Panel 02/21/25 Z01.818 - Encounter for other preprocedural examination Complete Blood Count Auto Diff 02/21/25 Z01.818 - Encounter for other preprocedural examination PT Evaluation and Treatment 02/21/25 Z96.611 - Presence of right artificial shoulder joint Type and Screen 02/21/25 Z01.818 - Encounter for other preprocedural examination Coding Level of Care Code Est Pt Level 3 (79181) Complex EM visit Add On G2211 Diagnoses Rotator cuff arthropathy of right shoulder M12.811
--- OUTSIDE RECORDS SUMMARY | 2025-02-21 09:14 | XMS_ITS | Patient Health Record ---
Author Organization [facility] Address [address] [place] [address] Care Team Providers Care Chaplain Resident Name Role Phone Richard Castro MD Primary Care Provider Jaziel Mclean Jr Unavailable Reason For Referral No Information Medications Medication SIG (Take, Route, Frequency, Duration) Notes Start Date End Date Status dilTIAZem HCl 120 MG 1 tablet before nils ls Orally QD 07/26/2014 Active Flecainide Acetate 50 MG 1 tablet Orally every 12 hrs Active Aspir-81 Active Suprep Bowel Prep 1 as directed Orally 1 for 1 dose 07/26/2014 Active Problems Problem Type SNOMED Code ICD Code Onset Dates Problem Status W/U Status Risk Notes Problem 25751982 Hemorrhoids (455.6) Active confirmed Problem 307802606 Colon cancer screening (V76.51) Active confirmed Problem 837267176 Abnormal findings in stool (792.1) Active confirmed Plan Of Treatment Future Test Test Name Order Date COLONOSCOPY 07/26/2014 Insurance Providers Payer Name Payer Address Payer Phone Subscriber Number Group Number Insured Name Patient Relationship to Insured Coverage Start Date Coverage End Date [facility] [address] [address] [place] [address] [id number] ROOSEVELT SAMUELS Self - patient is the insured MEDICARE OF [place] [address] [place] [address] [phone] [id number] ROOSEVELT SAMUELS Self - patient is the insured Medical (General) History Medical History History ICD Code lymphoma Atrial fibrillation mitral valve prolapse Surgical History Surgery Date(Month/Year) lymphectomy 1 node under arm 2010
--- OUTSIDE RECORDS SUMMARY | 2025-02-21 09:14 | XMS_ITS | Patient Health Record ---
Author Organization Richard Castro MD Address [address] [place], [place] [id number] Care Team Providers Care Unarmed Security Officer Name Role Phone Richard Castro Primary Care Provider Allergies No Known Allergies Results Component Value Reference Range Notes Complete Blood Count Auto Di ff Reviewed date:07/03/2024 08:00:30 PM Interpretation: Performing Lab:[facility], [address] [place] [phone] Notes/Report: White Blood Count 7.5 4.8-10.8 X10*3/uL [...] NRBC Abs Auto 0.000 0.0-0.012 X10*3/uL Comprehensive [place]. Panel Fa st Reviewed date:07/03/2024 08:16:51 PM Interpretation: Performing Lab:[facility], [address] [place] [phone] Notes/Report: Sodium 138 135-145 mmol/L Potassium 4.1 [...] Panel Reviewed date:07/03/2024 08:01:49 PM Interpretation: Performing Lab:[facility], [address] [place] [phone] Notes/Report: Triglycerides 98 <150 mg/dL Desirable Triglyceride: [...] date:07/17/2024 04:52:07 PM Interpretation:see back 07-17-2024 Performing Lab:[facility], [address] [place] [phone] Notes/Report: PSA,Total (Free>4and<10) 5.94 0.00-4.00 ng/mL PSA methodology: Burgess Alinity i Chemiluminescent Microparticle Immunoassay (CMIA) UA ClnCatch+Micro w/rflx Cul t Reviewed date:07/03/2024 08:03:57 PM Interpretation: Performing Lab:[facility], [address] [place] [phone] Notes/Report: Urine, Clean Catch Color Urine Yellow Appearance Urine Clear PH 5.5 5.0-9.0 Glucose Urine UA Negative Negative mg/dL Urine Blood Negative Negative Specific [place] - Urine 1.015 1.005-1.025 Urine Protein Negative [...] ff Reviewed date:12/24/2024 05:16:55 PM Interpretation: Performing Lab:[facility], [address] [place] [phone] Notes/Report: White Blood Count 8.2 4.8-10.8 X10*3/uL [...] Panel Reviewed date:12/24/2024 05:16:08 PM Interpretation: Performing Lab:[facility], [address] [place] [phone] Notes/Report: Sodium 137 135-145 mmol/L Potassium 4.2 [...] date:03/19/2024 02:09:45 PM Interpretation: Performing Lab: Notes/Report: [address] [address] Magnetic Resonance Report Signed Patient: Joselito Hurd MR#: [id number] 4 : 1950 Acct:[id number] Age/Sex: 74 / M ADM Date: 03/13/24 Loc: HO.MRI Attending Dr: Leslie Browning PA-C Ordering Physician: Leslie Browning PA-C Date of Service: 03/13/24 Procedure(s): MR shoulder RT wo con Accession Number(s): [id number] cc: Richard Castro MD; Leslie Browning PA-C [...] curved with no subacromial spur. There is ipvf-sg-ucmsbabl hypertrophic osteoarthritis of the acromioclavicular joint. LABRUM/CAPSULE: [...] interstitial partial tearing of the subscapularis. 4. Dvxe-uk-urdwszsi hypertrophic osteoarthritis of the acromioclavicular joint. 5. Mild arthrosis of the glenohumeral joint. Dictated By: Domingo Mckeon MD Signed By: <Electronically signed by Domingo Mckeon MD in OV> 03/19/24 0741 DD/ 1740 TD/TT: Food Dehydrator Operator: CIELO [address] [address] Magnetic Resonance Report Signed Patient: Flavia Hurd MR#: [id number] 4 : 1950 Acct:[id number] Age/Sex: 74 / M ADM Date: 03/13/24 Loc: HO.MRI Attending Dr: Leslie Browning PA-C Ordering Physician: Leslie Browning PA-C Date of Service: 03/13/24 Procedure(s): MR shoulder RT wo con Accession Number(s): [id number] cc: Richard Castro MD; Leslie Browning PA-C [...] with no subacromial spur. Th ere is itng-nb-qosehjvl hypertrophic osteoarthritis of the acromioclavic ular joint. [...] interstitial partial tearing of the subscapularis. 4. Pdfo-yo-jufjjzyu hypertrophic osteoarthritis of the acromioclavicular joint. 5. Mild arthrosis of the glenohumeral joint. Dictated By: Domingo Mckeon MD Signed By: <Electronically signed by Domingo Mckeon MD in OV> 03/19/24 0741 DD/ 1740 TD/TT: Vehicle Dynamics Engineer ist: WG PSA Free and Total Reviewed date:07/23/2024 08:09:01 AM Interpretation:cback psa 07/17 Performing Lab:[facility], [address] [place] [phone] Notes/Report: Prostate Specific Ag Total 6.2 < [...] 30 93 9 (3)Jasonona et al.:MICHI 277: 3148-4943 (1996) (4)Catalona et al.:MICHI 279: 3117-7569 (1997) (x)These estimates vary with age, ethnicity, [...] mind. PSA was performed using the Zulema [place] Immunoassay method. Values obtained from different assay methods cannot be used interchangeably. PSA levels, regardless of value, should not be interpreted as absolute evidence of the presence or absence of disease. THIS TEST WAS PERFORMED AT: [facility] [address] [place] [phone] CLAUS SEALS MD Free Prostate Spec Ag 1.3 CT shoulder RT wo con Reviewed date:12/19/2024 05:35:49 PM Interpretation: Performing Lab: Notes/Report: [place] [address] [address] Scan Report Signed Patient: Joselito Hurd Sr MR#: [id number] : 1950 Acct:[id number] Age/Sex: 74 / M ADM Date: 12/17/24 Loc: HO.CT Attending Dr: Js Marquez PA-C Ordering Physician: Js Marquez PA-C Date of Service: 12/17/24 Procedure(s): CT shoulder RT wo IV con Accession Number(s): [id number] cc: Richard Castro MD; Js Marquez PA-C Report Number: [id number]: Total DLP = 283.00 mGy-cm CLINICAL HISTORY: [...] in OV> 12/19/24913 DD/ 2 TD/TT: 12/19/24912 Food Dehydrator Operator: [place] [address] CT Scan Report Signed Patient: Flavia Hurd Sr MR#: [id number] : 1950 Acct:[id number] Age/Sex: 74 / M ADM Date: 12/17/24 Loc: HO.CT Attending Dr: Justino Marquez PA-C Ordering Physician: Js Marquez PA-C Date of Service: 12/17/24 Procedure(s): CT shoulder RT wo IV con Accession Number(s): [id number] cc: Richard Castro MD; Js Marquez PA-C Report Number: [id number]: Total DLP = 283.00 mGy-cm CLINICAL HISTORY: [...] in OV> 12/19/24913 DD/ 2 TD/TT: 12/19/24912 Food Dehydrator Operator: MRSA Nasal Screen Reviewed date:01/29/2025 05:00:18 PM Interpretation: Performing Lab:[facility], [address] [place] [phone] Notes/Report: MRSA Nasal PCR NEGATIVE Negative SA [...] Problem Status W/U Status Risk Notes Problem 642407283 Neuropathy (G62.9) Active confirmed Problem 98060868 Prostatism (N40.0) Active confirmed Problem 431226372 Paroxysmal atria l fibrillation (I48.0) Active confirmed Problem 078330390 Essential tremor (G25.0) Active confirmed Problem 368754318814269 Erectile dysfunc tion due to arterial insufficiency (N52.01) Active confirmed Problem 68425373 Mitral valve dis order (I05.9) Active confirmed Problem Elevated LDL cholesterol level (E78.0) Active confirmed Problem 066025576 Non-rheumatic mi tral regurgitation (I34.0) Active confirmed Problem 788361420 Pure hypercholesterolemia (E78.00) Active confirmed Problem 135617173 Elevated PSA (R97.20) Active confirme d Problem 933678208 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 confirmed Problem 65663953 Hydronephrosis 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) Active confirmed Problem 230228388 Elevated serum cholesterol (E78.9) Active confirmed Problem 743562588 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 [place] [id number] 07/17/2024 Richard Castro Essential tremor G25 .0 ; Pure hypercholesterolemia E78.00 ; Elevated PSA R97.20 ; Paroxysmal atrial fibrillation I48.0 ; Colon cancer screening Z12.11 and Depression screening Z13.31 Richard Castro MD [address] [place] [id number] 12/24/2024 Richard Castro Mass in neck R22.1 ; Right shoulder pain, unspecified chronicity M25.511 and Preop examination Z01.818 Richard Castro MD [address] [place] [phone] 01/15/2025 Richard Castro Assessments Encounter Date Diagnosis (ICD Code) Assessment Notes Treatment Notes Treatment Clinical Notes Section Notes 07/03/2024 Elevated PSA (ICD-10 - R97.20) 07/03/2024 Encounter for immunization (ICD-10 - Z23) 07/17/2024 Essential tremor (ICD-10 - G25.0) 07/17/2024 Pure hypercholesterolemia (ICD-10 - E78.00) 12/24/2024 Mass in neck (ICD-10 - R22.1) THE ORDER WAS FAXED TO [facility], pending diagnsotic testing 12/24/2024 Right shoulder [...] his shoulder surgery if cleared by his manager service desk 07/17/2024 Paroxysmal atrial fibrillation (ICD-10 - I48.0) have warned him of the risk of stroke and he should be on anticoag. he is going to think about it and get back to me or maybe wait/ get last note from [facility] 07/17/2024 Colon cancer screeni ng (ICD-10 [...] Name:Richard Chatman ier, 07/05/2025 07:30:00 AM, [address], [address], [place], [place], [phone], Provider Name:Richard Chatman ier, 07/18/2025 01:00:00 PM, [address], [address], [place], [place], [phone], Insurance Providers Payer Name Payer Address Payer Phone Subscriber Number Group Number Insured Name Patient Relationship to Insured Coverage Start Date Coverage End Date MEDICARE [facility] [address] [place] [address] [id number] Joselito Hurd Self - patient is the insured MEDEX BCBS OF [facility] [address] [place] [phone] [id number] Joselito Hurd Self - patient is the [...]
== END 2025-02-21 09:44 | disposition home or self-care (01) ==
LOC: HO.HOS 08:54
PROVIDERS: PCP Internal Medicine; Visit Provider Physician Assistant
DX: M12.811 Other specific arthropathies, not elsewhere classified, right shoulder (principal)
CPT/HCPCS: 99024

== ENCOUNTER → 2025-02-21 08:54 | Outpatient (BNVA) | payer MEDICARE, SELFPAY | PROVIDERS: PCP Internal Medicine; Visit Provider Physician Assistant | DX: Z01.818 Encounter for other preprocedural examination (principal); M12.811 Other specific arthropathies, not elsewhere classified, right shoulder | CPT/HCPCS: 99212 ==

== ENCOUNTER 2025-02-26 08:58 | Day surgery (SDC) | payer MEDICARE, SELFPAY ==
--- OUTSIDE RECORDS SUMMARY | 2024-12-21 12:13 | XMS_ITS | Patient Health Record ---
Author Organization Richard Castro MD Address [address] [place], [place] [id number] Care Team Providers Care Behavioral Technician Name Role Phone Richard Castro Primary Care Provider Allergies No Known Allergies Results Component Value Reference Range Notes Complete Blood Count Auto Di ff Reviewed date:07/03/2024 08:00:30 PM Interpretation: Performing Lab:[facility], [address] [place] [phone] Notes/Report: White Blood Count 7.5 4.8-10.8 X10*3/uL [...] NRBC Abs Auto 0.000 0.0-0.012 X10*3/uL Comprehensive [place]. Panel Fa st Reviewed date:07/03/2024 08:16:51 PM Interpretation: Performing Lab:[facility], [address] [place] [phone] Notes/Report: Sodium 138 135-145 mmol/L Potassium 4.1 [...] Panel Reviewed date:07/03/2024 08:01:49 PM Interpretation: Performing Lab:[facility], [address] [place] [phone] Notes/Report: Triglycerides 98 <150 mg/dL Desirable Triglyceride: [...] date:07/17/2024 04:52:07 PM Interpretation:see back 07-17-2024 Performing Lab:[facility], [address] [place] [phone] Notes/Report: PSA,Total (Free>4and<10) 5.94 0.00-4.00 ng/mL PSA methodology: Burgess Alinity i Chemiluminescent Microparticle Immunoassay (CMIA) UA ClnCatch+Micro w/rflx Cul t Reviewed date:07/03/2024 08:03:57 PM Interpretation: Performing Lab:[facility], [address] [place] [phone] Notes/Report: Urine, Clean Catch Color Urine Yellow Appearance Urine Clear PH 5.5 5.0-9.0 Glucose Urine UA Negative Negative mg/dL Urine Blood Negative Negative Specific [place] - Urine 1.015 1.005-1.025 Urine Protein [...] date:03/19/2024 02:09:45 PM Interpretation: Performing Lab: Notes/Report: [address] [address] Magnetic Resonance Report Signed Patient: Joselito Hurd MR#: [id number] 4 : 1950 Acct:[id number] Age/Sex: 74 / M ADM Date: 03/13/24 Loc: HO.MRI Attending Dr: Leslie Browning PA-C Ordering Physician: Leslie Browning PA-C Date of Service: 03/13/24 Procedure(s): MR shoulder RT wo con Accession Number(s): [id number] cc: Richard Castro MD; Leslie Browning PA-C [...] curved with no subacromial spur. There is cwuj-jb-skkfwchh hypertrophic osteoarthritis of the acromioclavicular joint. LABRUM/CAPSULE: [...] interstitial partial tearing of the subscapularis. 4. Wjpg-li-herpfovk hypertrophic osteoarthritis of the acromioclavicular joint. 5. Mild arthrosis of the glenohumeral joint. Dictated By: Domingo Mckeon MD Signed By: <Electronically signed by Domingo Mckeon MD in OV> 03/19/24 0741 DD/ 1740 TD/TT: Spanish Translator: CI[place] [address] Magnetic Resonance Report Signed Patient: Flavia Hurd MR#: [id number] 4 : 1950 Acct:[id number] Age/Sex: 74 / M ADM Date: 03/13/24 Loc: HO.MRI Attending Dr: Leslie Browning PA-C Ordering Physician: Leslie Browning PA-C Date of Service: 03/13/24 Procedure(s): MR shoulder RT wo con Accession Number(s): [id number] cc: Richard Castro MD; Leslie Browning PA-C [...] with no subacromial spur. Th ere is qmth-db-kjglelgq hypertrophic osteoarthritis of the acromioclavic ular joint. [...] interstitial partial tearing of the subscapularis. 4. Lxwp-dc-obbphklb hypertrophic osteoarthritis of the acromioclavicular joint. 5. Mild arthrosis of the glenohumeral joint. Dictated By: Domingo Mckeon MD Signed By: <Electronically signed by Domingo Mckeon MD in OV> 03/19/24 0741 DD/ 1740 TD/TT: Oven Laborer ist: WG PSA Free and Total Reviewed date:07/23/2024 08:09:01 AM Interpretation:cback psa 07/17 Performing Lab:[facility], [address] [place] [phone] Notes/Report: Prostate Specific Ag Total 6.2 < [...] 30 93 9 (3)Catalona et al.:MICHI 277: 9639-5937 (1996) (4)Catalona et al.:MICHI 279: 6633-1511 (1997) (x)These estimates vary with age, ethnicity, [...] mind. PSA was performed using the Zulema Jenners Immunoassay method. Values obtained from different assay methods cannot be used interchangeably. PSA levels, regardless of value, should not be interpreted as absolute evidence of the presence or absence of disease. THIS TEST WAS PERFORMED AT: [facility] [address] [place] [phone] CLAUS SEALS MD Free Prostate Spec Ag 1.3 CT shoulder RT wo con Reviewed date:12/19/2024 05:35:49 PM Interpretation: Performing Lab: Notes/Report: [address] [address] [address] Scan Report Signed Patient: Joselito Hurd Sr MR#: [id number] : 1950 Acct:[id number] Age/Sex: 74 / M ADM Date: 12/17/24 Loc: HO.CT Attending Dr: Js Marquez PA-C Ordering Physician: Js Marquez PA-C Date of Service: 12/17/24 Procedure(s): CT shoulder RT wo IV con Accession Number(s): [id number] cc: Richard Castro MD; Js Marquez PA-C Report Number: [id number]: Total DLP = 283.00 mGy-cm CLINICAL HISTORY: M12.819 - Other specific arthropathies, not elsewhere classified, unspec... --- Additional Notes or Special Instructions: PRe op planning Exam: CT of the right shoulder without intravenous contrast. Comparison: MRI March 13, 2024. Findings: Suture anchors are again seen within the humeral head. Humeral head is high-riding nearly contacting the undersurface of the acromion. Extensive fatty atrophy of the supraspinatus and infraspinatus muscles. No fracture or dislocation. Mild degenerative change of the glenohumeral joint with joint space narrowing and osteophyte formation. Numerous surgical clips are seen in the right axilla. Type 2 acromion. Moderate degenerative change of the AC joint. No infiltrates are seen within the visualized portion of the right lung. No aggressive periosteal reaction or bony destructive lesion is seen. Impression: 1. High-riding humeral head with atrophy of the supraspinatus and infraspinatus muscle suggestive of chronic full-thickness rotator cuff tear. 2. Glenohumeral joint and AC joint DJD. This document has been electronically signed by: Gurdeep Reaves MD on 12/19/2024 09:13:15 Dictated By: Gurdeep Reaves MD Signed By: <Electronically signed by Gurdeep Reaves MD in OV> 12/19/[address] DD/ 2 TD/TT: 12/19/24912 Spanish Translator: [place] [address] CT Scan Report Signed Patient: Flavia Hurd Sr MR#: [id number] : 1950 Acct:[id number] Age/Sex: 74 / M ADM Date: 12/17/24 Loc: HO.CT Attending Dr: Justino Marquez PA-C Ordering Physician: Js Marquez PA-C Date of Service: 12/17/24 Procedure(s): CT shoulder RT wo IV con Accession Number(s): [id number] cc: Richard Castro MD; Js Marquez PA-C Report Number: [id number]: Total DLP = 283.00 mGy-cm CLINICAL HISTORY: M12.819 - Other specific arthropathies, not elsewhere classified, unspec... --- Additional Notes or Special Instructions: PRe op planning Exam: [facility] of [facility] shoulder without intravenous contrast. Comparison: MRI March 13, 2024. Findings: Suture anchors are a gain seen within the humeral head. Humeral head is high-riding nearly contacting the undersurface of the acromion. Extensive fatty atrophy of the supraspinatus and infraspinatus muscles. No fracture or dislocation. Mild degenerative ch angela of the glenohumeral joint with joint space narrowing and osteop hyte formation. Numerous surgical cl ips are seen in the right axilla. Type 2 acromion. Moderate degenerative change of the AC joint. No infiltrates are s een within the visualized portion of the right lung. No aggressive perios teal reaction or bony destructive lesion is seen. Impression: 1. High-riding humer al head with atrophy of the supraspinatus and infraspinatus muscle suggestive of chronic full-thickness rotator cuff tear. 2. Glenohumeral join t and AC joint DJD. This document has be en electronically signed by: Gurdeep Reaves MD on 12/19/2024 09:13:15 Dictated By: Gurdeep Reaves MD Signed By: <Electronically signed by Gurdeep Reaves MD in OV> 12/19/24913 DD/ 2 TD/TT: 12/19/24912 Spanish Translator: Reason For Referral Reason acute pain of [...] Problem Status W/U Status Risk Notes Problem 246136513 Neuropathy (G62.9) Active confirmed Problem 46755373 Prostatism (N40.0) Active confirmed Problem 384678074 Paroxysmal atria l fibrillation (I48.0) Active confirmed Problem 895512203 Essential tremor (G25.0) Active confirmed Problem 301779378378985 Erectile dysfunc tion due to arterial insufficiency (N52.01) Active confirmed Problem 67566299 Mitral valve dis order (I05.9) Active confirmed Problem Elevated LDL cholesterol level (E78.0) Active confirmed Problem 368492507 Non-rheumatic mi tral regurgitation (I34.0) Active confirmed Problem 103462909 Pure hypercholesterolemia (E78.00) Active confirmed Problem 653173118 Elevated PSA (R97.20) Active confirme d Problem 015586618 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 confirmed Problem 35789479 Hydronephrosis 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) Active confirmed Problem 842885648 Elevated serum cholesterol (E78.9) Active confirmed Problem 984743277 Mixed conductive and sensorineural hearing loss of [...] Richard Castro MD [address] [place] [phone] 07/03/2024 Richard Castro Elevated PSA R97.20 ; Encounter for immunization Z23 and Pure hypercholesterolemia E78.00 Richard Castro MD [address] [place] [phone] 12/22/2023 Richard Castro Acute pain of right shoulder M25.511 Richard Castro MD [address] [place] [id number] 01/23/2024 Richard Castro Bronchitis J40 Richard Castro MD [address] [place] [phone] 07/17/2024 Richard Castro Essential tremor G25 .0 [...] or maybe wait/ get last note from [facility] 07/17/2024 Colon cancer screeni ng (ICD-10 - Z12.11) guaiac negative 07/17/2024 Depression screening (ICD-10 - Z13.31) negative screen Plan Of Treatment Pending Test Test Name Order Date US RENAL BILATERAL 07/17/2020 US RENAL BILATERAL 07/24/2020 Future Test Test Name Order Date US RENAL BILATERAL 07/29/2021 Next Appt Details Provider Name:Richard Chatman ier, 12/24/2024 11:00:00 AM, [address] [place] [address], [address], [place], [place], [phone], Provider Name:Richard Chatman ier, 07/05/2025 07:30:00 AM, [address] [place] [address], [address], [place], [place], [phone], Provider Name:Richard Chatman ier, 07/18/2025 01:00:00 PM, [address], [address], [place], [place], [phone], Insurance Providers Payer Name Payer Address Payer Phone Subscriber Number Group Number Insured Name Patient Relationship to Insured Coverage Start Date Coverage End Date [employer] [address] [place] [address] [id number] Joselito Hurd Self - patient is the insured MEDEX [employer] OF [facility] [address] [place] [address] [id number] Joselito Hurd Self - patient is the [...]
--- OUTSIDE RECORDS SUMMARY | 2024-12-21 12:13 | XMS_ITS ---
Author Organization Richard Castro MD Address [address] [place], [place] [phone] Care Team Providers Care Lifter/Driver Name Role Phone Richard Castro Primary Care Provider Results Component Value Reference Range Notes Complete Blood Count Auto Di ff Reviewed date:07/03/2024 08:00:30 PM Interpretation: Performing Lab:[facility], [address] [place] [phone] Notes/Report: White Blood Count 7.5 4.8-10.8 X10*3/uL [...] NRBC Abs Auto 0.000 0.0-0.012 X10*3/uL Comprehensive [place]. Panel Fa st Reviewed date:07/03/2024 08:16:51 PM Interpretation: Performing Lab:[facility], [address] [place] [phone] Notes/Report: Sodium 138 135-145 mmol/L Potassium 4.1 [...] Panel Reviewed date:07/03/2024 08:01:49 PM Interpretation: Performing Lab:[facility], [address] [place] [phone] Notes/Report: Triglycerides 98 <150 mg/dL Desirable Triglyceride: [...] date:07/17/2024 04:52:07 PM Interpretation:see back 07-17-2024 Performing Lab:[facility], [address] [place] [phone] Notes/Report: PSA,Total (Free>4and<10) 5.94 0.00-4.00 ng/mL PSA methodology: Burgess Alinity i Chemiluminescent Microparticle Immunoassay (CMIA) UA ClnCatch+Micro w/rflx Cul t Reviewed date:07/03/2024 08:03:57 PM Interpretation: Performing Lab:[facility], [address] [place] [phone] Notes/Report: Urine, Clean Catch Color Urine Yellow Appearance Urine Clear PH 5.5 5.0-9.0 Glucose Urine UA Negative Negative mg/dL Urine Blood Negative Negative Specific [place] - Urine 1.015 1.005-1.025 Urine Protein Negative [...] [facility] [address] [place], [place] [phone] 07/03/2024 Richard Castro Elevated PSA R97.20 ; Encounter for immunization Z23 and Pure hypercholesterolemia E78.00 Assessments Encounter Date Diagnosis (ICD Code) Assessment Notes Treatment Notes Treatment Clinical Notes Section Notes 07/03/2024 Elevated PSA (ICD-10 - R97.20) 07/03/2024 Encounter for immunization (ICD-10 - Z23) 07/03/2024 Pure hypercholesterolemia (ICD-10 - E78.00) Plan Of Treatment Next Appt Details Provider Name:Richard Chatman ier, 12/24/2024 11:00:00 AM, [address] [place] [address], [address], [phone], Provider Name:Richard Chatman ier, 07/05/2025 07:30:00 AM, [address] [place] [address], [place] [address], [place], [place], [phone], Provider Name:Richard Chatman ier, 07/18/2025 01:00:00 PM, [address] [place] [address], [address], [phone], Progress Notes * Joselito HURD ADOB:[birth year] (74 yo M)Acc No.[id number]:07/03/2024 Progress Note Patient:?Joselito HURD Provider:?Richard Castro MD :1950???Age:74 Y???Sex:Male Vasquez e:07/03/2024 Address:[address] [place] [address] Subjective: * Chief Complaints: * ???1. FASTING [...] Time - 07/03/2024 08:30 AM) ?LAB: [facility] [place]. Panel Fast (Collection Date & Time - [...] Office Staff on Left Deltoid * Procedure Codes:?37718 FLU V ACC PRSV FREE INC ANTIG, G0008 ADMN FLU VAC NO FEE SCHED SAME DAY, 31476 VENIPUNCT, ROUTINE* * * The named appointment provid er may or may not be the originator of this progress note, and it is not deemed complete until electronically signed by the appointment provider. Sign off status: Pending * Provider:?Richard Castro MD Date:?09/02/2023 Generated for Per deleon/Amandeep/Maninder on:?12/21/2024 12:13 PM EDT
--- OUTSIDE RECORDS SUMMARY | 2024-12-21 12:14 | XMS_ITS ---
Author Organization Richard Castro MD Address [address] [place] [phone] Care Team Providers Care Quantity Surveyor Name Role Phone Richard Castro Primary Care Provider Allergies No Known Allergies REASON FOR VISIT COUGHING ONE WEEK, WHEEZING and fatigue, CELL PHONE [phone], WILL TEST FOR COVID THIS MORN, tested [...] Location Date Provider Diagnosis Richard Castro MD [address] [place] [address] [place] [phone] 01/23/2024 Richard Castro Bronchitis J40 Assessments Encounter [...] AM, [address], [address], [place], [phone], Provider Name:Richard Chatman ier, 07/05/2025 07:30:00 AM, [address] [facility], [address], [place], [phone], Provider Name:Richard Chatman ier, 07/18/2025 01:00:00 PM, [address], [address], [place], [phone], Progress Notes * Joselito HURD ADOB:[birth year] (73 yo M)Acc No.[id number]:01/23/2024 Patient:?Joselito Hurd A Provider:?Richard Castro MD :1950???Age:73 Y???Sex:Male Vasquez e:01/23/2024 Address:[address] [place] [address] Subjective: * Chief Complaints: * ???COUGHING ONE WEEK, WHEEZI NG and fatigueCELL PHONE [phone] TEST FOR COVID THIS MORNtested for Covid [...] Verified] Objective: * Vitals:?Ht: 70.50, Wt:196, B MT:27.72 weight at home is 196 BP not taken at home no temp. * Examination: ???General Examination: ?GENERAL APPEARANCE:? alert, well hydrated, in no distress .?HEAD:? normocephalic.? Assessment: * Assessment: 1.?Bronchitis - J40 (Primary )? Plan: * Treatment: * Procedure Codes:? * * Sign off status: Completed true * Provider:?Richard Castro MD Date:?0 01/23/2024 Generated for Per deleon/Amandeep/Maninder on:?12/21/2024 12:13 PM EDT History and Physical Notes * HPI (History of Present Illness) Category Sub-Category Detail Notes Category Not es Symptom(s) Telehealth Location of [facility] rendering services:: [address] [place] [address] Drive, [address] patient is a 73 [...]
--- OUTSIDE RECORDS SUMMARY | 2024-12-21 12:14 | XMS_ITS ---
Author Organization Richard Castro MD Address [address] [place] [phone] Care Team Providers Care Dining Car Server Name Role Phone Richard Castro Primary Care Provider [phone] Allergies No Known Allergies Results Component Value [...] Location Date Provider Diagnosis Richard Castro MD [address] [place] [address] [address] [place], [place] [phone] 07/17/2024 Richard Castro Essential tremor G25 .0 [...] or maybe wait/ get last note from [facility] 07/17/2024 Colon cancer screeni ng (ICD-10 [...] or maybe wait/ get last note from [facility] Colon cancer screening guaiac negative Depression screening negative screen Next Appt Details Follow Up: 1 Year, Reason: Provider Name:Richard escamilla, 12/24/2024 11:00:00 AM, [address] [place] [address], [address], [phone], Provider Name:Richard escamilla, 07/05/2025 07:30:00 AM, [address] [place] [address], [address], [phone], Provider Name:Richard escamilla, 07/18/2025 01:00:00 PM, [address] [place] [address], [address], [phone], Progress Notes * Joselito HURD ADOB:[birth year] (74 yo M)Acc No.[id number]:07/17/2024 Patient:?Joselito Hurd Provider:?Richard Castro MD :1950???Age:74 Y???Sex:Male Vasquez e:07/17/2024 Address:[address] [place] [address] Subjective: * Chief Complaints: * ???Review labsCBACK [...] Verified] Objective: * Vitals:?Ht: 70.50, Wt:201, B LA:28.43, BP:118/74 weight is up 5 pounds since 01-23-24. * ???Past Orders: ???Lab:[facility] [place]. P chuck Fast (Order Date - 07/03/2024) [...] mg/dL ?Urine Blood Negative Negative - ?Specific [place] - Urine 1.015 1.005-1.025 - ?Urine Protein [...] or maybe wait/ get last note from [facility]?? 3.?Colon cancer screening?LAB: Occult Blood, Stool, Guaiac?Negative ? Value Reference Range ?Occult Blood, Stool, Guaiac Neg Notes: guaiac negative??4.?Depression screening? Notes: negative screen?? * Procedure Codes:?37015 TEST FOR BLOOD, FECES * Follow Up:?1 Year * * Sign off status: Completed true * Provider:?Richard Castro MD Date:?1 09/17/2023 Generated for Per deleon/Amandeep/eTransmitting on:?12/21/2024 12:13 PM EDT History and Physical [...]
[2025-01-29 12:06] VITALS: BP 119/71; PULSE 55; RESP 16; O2SAT 96; BMI 27.8
--- NOTE | 2025-01-29 12:36 | HO.ANESPROP2 ---
Documented by User: Emani Wilson NP 02/25/25 09:29 HPI - Anesthesia Eval Consult details Narrative: 74yo M for Right REVERSE Shoulder Total Arthroplasty, 02/26/25 Cardiac optimized. Follows [facility] for afib, mitral regurg/prolapse, borderline AAA. Last office visit 12/2024 - stable. Last echo 2021. Updated echo done per anesthesia request with WMA and decreased EF. Sent to patient's primary cardiology for review and OK'd to proceed without further testing No recent illness No CP/SOB with eliptical 20-30mins almost daily and free weights Mitral regurg Afib: Xarelto, s/p cardioversion x 1 with resolution NonHodgkin Lymphoma: chemo 2009, no further oncology f/u Case reviewed with [facility] Active Problems Active Problems: All Active Problems Rotator cuff arthropathy of right shoulder (Acute) Fall (Acute) Shoulder joint painful on movement (Acute) History of repair of right rotator cuff (Acute) Left inguinal hernia (Acute) Past Medical History Medical History Wears hearing aid in both ears [place] (hard of hearing) History of cardioversion BPH (benign prostatic hyperplasia) Hx MRSA infection (07/2018) Tremor Non-Hodgkin lymphoma Afib Hydronephrosis with renal and ureteral calculous obstruction (2019) Acute UTI Sepsis Calculus, renal Hydronephrosis Family History Family History Father Throat cancer Mother Melanoma Leukemia Family history of problems with anesthesia: No Surgical History Surgical History Hx of colonoscopy Hx of repair of right rotator cuff (~2014) History of left inguinal hernia repair (~2020) History of right inguinal hernia repair (08/28/18) History of bilateral inguinal hernia repair (06/28/17) History of arthroscopy of left knee History of Problems with Anesthesia: No Social History Social History Household Members: Spouse and Family Housing: House Are you a primary lawn care professional to a significant other at home: No Do you presently have visiting nurse or other home services: No Comment: hematoma right thigh, resolved no fracture with 12/2024 fall, no head strike Patient Tobacco Use Status: Former Tobacco user Tobacco use type: Cigarette Use of substances other than those prescribed or required for medical reasons: No Have you been hit, kicked, punched, or otherwise hurt by someone within the past year? If so, by whom?: No Are you DNR?: No Advance Directives: No Advance Directives Information Provided: Yes Advance Directives on File: No Poor oral hygiene: No service: Yes Current occupational status: retired [employer] Allergies Allergy/AdvReac Type Severity Reaction Status Date / Time No Known Allergies (No Known Allergy Verified 02/26/25 09:27 Allergies*) Home Medications ?Medication ?Instructions ?Recorded ?Confirmed ?Last Taken ?Type diltiazem HCl 120 mg 120 mg PO DAILY 07/14/20 02/26/25 02/26/25 History capsule,extended release 24 hr (Cartia XT) flecainide 50 mg tablet 150 mg PO DAILY 07/14/20 02/26/25 02/26/25 History propranolol 80 mg capsule,24 80 mg PO NEEDED PRN Tremor(S) 07/15/20 02/26/25 02/26/25 History hr,extended release tamsulosin 0.4 mg capsule 0.4 mg PO DAILY 12/26/23 02/26/25 Unknown History rivaroxaban 20 mg tablet (Xarelto) 20 mg PO QPM 01/29/25 02/26/25 02/22/25 History Exam Height,Weight and Vital Signs: Height 5 ft 11 in Weight 90.265 kg Last Vital Signs Pulse 55 01/29/25 12:06 Resp 16 01/29/25 12:06 BP 119/71 01/29/25 12:06 Pulse Ox 96 01/29/25 12:06 O2 Del Method Room Air 01/29/25 12:06 Pertinent Lab Results Pertinent Lab Results: Laboratory Tests 12/24/24 11:00 WBC 8.2 Hgb 12.9 L Hct 37.8 L Plt Count 240 Sodium 137 Potassium 4.2 Chloride 105 Carbon Dioxide 26 BUN 19 H Creatinine 0.90 Narrative Narrative: ECHO 01/2025 Conclusions: - Normal left ventricular cavity size. There is normal left ventricular wall thickness. The left ventricular systolic function is borderline reduced. The visually estimated ejection fraction is between 45-50%. - E/E prime ratio is between 8 and 15 consistent with indeterminate filling pressures. - The basal inferior segment is akinetic. - Mildly increased right ventricular cavity size. There is normal right ventricular systolic function. - The left atrium is moderately dilated. - There is mild dilatation of the sinuses of Valsalva measuring 4.21 cm and mild dilatation of the ascending aorta measuring 4.10 cm. Airway Mallampati Class: III TM Dist: >3cm Neck ROM: Full Heart: RRR +M Lungs: CTAB Assessment and Plan Assessment Anesthesia Assessment: Anesthesia Plan Discussed and PAT Visit Final Anesthetic Review Family History of Problems with Anesthesia: No History of Problems with Anesthesia: No Documented by User: Saray Milian MD 02/26/25 12:48 [facility] Past Medical History Medical History Wears hearing aid in both ears [place] (hard of hearing) History of cardioversion BPH (benign prostatic hyperplasia) Hx MRSA infection (07/2018) Tremor Non-Hodgkin lymphoma Afib Hydronephrosis with renal and ureteral calculous obstruction (2019) Acute UTI Sepsis Calculus, renal Hydronephrosis Family History Family History Father Throat cancer Mother Melanoma Leukemia Surgical History Surgical History Hx of colonoscopy Hx of repair of right rotator cuff (~2014) History of left inguinal hernia repair (~2020) History of right inguinal hernia repair (08/28/18) History of bilateral inguinal hernia repair (06/28/17) History of arthroscopy of left knee Social History Social History Household Members: Spouse and Family Housing: House Are you a primary lawn care professional to a significant other at home: No Do you presently have visiting nurse or other home services: No Comment: hematoma right thigh, resolved no fracture with 12/2024 fall, no head strike Patient Tobacco Use Status: Former Tobacco user Tobacco use type: Cigarette Use of substances other than those prescribed or required for medical reasons: No Have you been hit, kicked, punched, or otherwise hurt by someone within the past year? If so, by whom?: No Are you DNR?: No Advance Directives: No Advance Directives Information Provided: Yes Advance Directives on File: No Poor oral hygiene: No service: Yes Current occupational status: retired [employer] Allergies Allergy/AdvReac Type Severity Reaction Status Date / Time No Known Allergies (No Known Allergy Verified 02/26/25 09:27 Allergies*) Home Medications ?Medication ?Instructions ?Recorded ?Confirmed ?Last Taken ?Type diltiazem HCl 120 mg 120 mg PO DAILY 07/14/20 02/26/25 02/26/25 History capsule,extended release 24 hr (Cartia XT) flecainide 50 mg tablet 150 mg PO DAILY 07/14/20 02/26/25 02/26/25 History propranolol 80 mg capsule,24 80 mg PO NEEDED PRN Tremor(S) 07/15/20 02/26/25 02/26/25 History hr,extended release tamsulosin 0.4 mg capsule 0.4 mg PO DAILY 12/26/23 02/26/25 Unknown History rivaroxaban 20 mg tablet (Xarelto) 20 mg PO QPM 01/29/25 02/26/25 02/22/25 History Assessment and Plan Final Anesthetic Review NPO: Yes ASA Class: III Final Preanesthetic Review: No Changes in Pt Med Stat, Meds/Allgs Chart Reviewed, Consent Obtained/Reviewed and Anes Risks/Benef Reviewed Patient Risk: Intermediate Procedure Risk: Intermediate Anesthetic Plan Anesthetic Plan: GA, Regional Block and Agree w/ Assess. and Plan Disposition: Standard PACU
[2025-01-29 15:56] LABS: MRSA Nasal PCR NEGATIVE (Negative); SA Nasal PCR NEGATIVE (Negative)
[2025-02-21 10:13] LABS: MANUAL DIFF FLAG NO
[2025-02-21 10:41] LABS: Hematocrit 37.3 % (42.0-52.0); Hemoglobin 12.7 g/dl (14.0-18.0); Imm Gran Abs Auto 0.01 X10*3/uL (0.00-0.03); Imm Gran Pct Auto 0.2 % (0.0-0.4); Lymphocytes Absolute Auto 1.8 X10*3/uL (1.2-4.9); Mean Corpuscular HGB Conc 34.0 g/dl (31.0-36.0); Mean Corpuscular Hemoglobin 31.6 pg (27.0-33.0); Mean Corpuscular Volume 92.8 fL (80.0-98.0); NRBC Abs Auto 0.000 X10*3/uL (0.0-0.012); NRBC Pct Auto 0.0 /100WBC (0.0-0.2); Platelet Count 228 X10*3/uL (160-400); Red Blood Count 4.02 X10*6/uL (4.60-5.80); White Blood Count 5.4 X10*3/uL (4.8-10.8)
[2025-02-21 11:31] LABS: Anion Gap 9 (12-20); Blood Urea Nitrogen 23 mg/dL (9-16); Calcium 8.8 mg/dL (8.4-10.2); Carbon Dioxide 27 mmol/L (22-29); Chloride 107 mmol/L (96-108); Creatinine Clr Calc Pharmacy 64.7; Estimated Glomerular Filt Rate > 60; Potassium 4.5 mmol/L (3.3-5.1); Sodium 138 mmol/L (135-145)
[2025-02-26] VITALS (9 sets, daily range): BP systolic 93–125; BP diastolic 57–79; PULSE 56–98; RESP 14–18; TEMP 36–37; O2SAT 93–98; BMI 28.0
--- NOTE | ~2025-02-26 | XR_ITS ---
EXAMINATION: XR SHOULDER, RIGHT CLINICAL INFORMATION: TSA COMPARISON: December 26, 2023 TECHNIQUE: AP external rotation view of the right shoulder. FINDINGS: Limited single view x-ray. Right axillary clips are stable. There are new david projecting over the medial left shoulder joint. Postoperative changes are present related to first toe shoulder arthroplasty. XR/XR shoulder RT 1V IMPRESSION: Reverse total right shoulder arthroplasty. Right axillary lymph node dissection. Electronically signed by: Cornell Alaniz MD 02/26/2025 05:02 PM EDT
--- NOTE | 2025-02-26 08:46 | P.DS_ITS ---
DS: Providers Provider Date of Service: 02/27/25 Date of discharge: 02/27/25 Primary care physician: Richard Castro MD DS: Summary Hospital Course Hospital Course: The patient underwent a successful Right reverse totl shoulder arthroplasty, they were transferred to PACU and then to the floor to recover. During their stay, their vitals were stable, afebrile at 97.9. Labs were unremarkable, H/H 10.4/30.3. POD1 they received Occupational Therapy services. Prior to discharge, their dressing was clean dry and intact, and the plan was to be discharged home with VNA services. Time Attestation Discharge Coordination Time (in mins): 30 Quality: Safe Use of Opioids Does Pt have an Active Cancer Diagnosis on the Problem List?: No Quality: Stroke Does the patient have a stroke diagnosis?: No Physical Exam Vital Signs: Vital Signs: Last Vital Signs Pulse 55 01/29/25 12:06 Resp 16 01/29/25 12:06 BP 119/71 01/29/25 12:06 Pulse Ox 96 01/29/25 12:06 O2 Del Method Room Air 01/29/25 12:06 BMI result Body Mass Index 27.8 Const: General: cooperative, healthy appearing and no acute distress Resp: Effort & Inspection: normal respiratory effort and able to speak in complete sentences Cardio: Rate: regular rate Peripheral pulses: Peripheral pulses 2+ throughout GI: Palpation (GI): Soft to palpation Skin: Lesions: no lesions Rashes: no rashes Extrem: Other: Right shoulder dressing is c/d/i. Able to flex and extend at the wrist. Able to extend all digits and make a closed fist. Index and thumb tingling. Normal sensation in the remainder of the hand. Deltoid sensation intact. Radial pulse intact. Capillary refill is brisk. Discharge Plan Discharge Patient Disposition: Home Health Service Referrals: Js Marquez PA-C [Physician Associate Product Manager, Orthopedics] - 03/14/25 2:45 pm Discharge Medications: New celecoxib 200 mg Capsule 200 mg PO BID 30 Days Qty: 60 0RF acetaminophen 325 mg Tablet 650 mg PO Q6H PRN (Reason: Pain, Mild 1-3,Fever,Headache) 30 Days Qty: 240 0RF docusate sodium 100 mg Capsule 100 mg PO BID 30 Days Qty: 60 0RF oxycodone 5 mg Tablet 5 mg PO Q4H PRN (Reason: Pain, Moderate(Pain Scale 4-6)) 7 Days Qty: 42 0RF Rx Instructions: Partial Fill upon patient request. Continued diltiazem HCl [Cartia XT] 120 mg capsule,extended release 24hr 120 mg PO DAILY propranolol 80 mg capsule,extended release 24 hr 80 mg PO NEEDED PRN (Reason: Tremor(S)) Xarelto 20 mg Tablet 20 mg PO QPM Rx Instructions: must administer with evening meal flecainide 150 mg tablet 150 mg PO BID tamsulosin 0.4 mg capsule 0.4 mg PO DAILY Discharge Orders: Discharge Order (Routine); Ordered 02/27/25 Ordered By: Leslie Browning Diet: Advance to usual diet Activity on Discharge: Use Splints or Immobilizers Activity Restrictions/Additional Instructions: Wear sling at all times, including sleeping No driving Do not bathe or shower -Keep Bandage clean, dry, and intact - if there are any concerns about the bandage call orthopedics Call [facility] with any questions or concerns. Follow up with orthopedics 03/14/25 at 2:45 with Js Marquez PA-C Print Language: Venezuelan
--- NOTE | 2025-02-26 08:48 | W.MHC.F2F ---
Service Date Service Date: 02/26/25 Encounter Date of encounter: 02/27/25 Reasons for Services Signs and symptoms assessed: s/p right rTSA Pt. is considered homebound due to recent surgery. Unable to drive, poor balance, poor gait mechanics. Reason for occupational therapy: home safety and mobility, therapeutic exercises, restore joint function and ADL training Homebound: Leaving the home is medically contraindicated at this time without the asist of a device and/or another person due th the listed conditions above and below. Reason homebound: unsteady gait / fall risk, leg weakness, pain with ambulation and unable to drive Certification: Based on the above findings, I certify that this patient is confined to the home and needs intermittent retirement care, physical therapy and/or speech therapy, or continues to need occupational therapy. The patient is under my care, and I have initiated the establishment of the plan of care. The patient will be followed by a physician who will periodically review the plan of care. Time Spent With Patient Time: Total time managing care of this patient today ____ minutes.
[2025-02-26 09:36] LABS: Hematocrit 40.8 % (42.0-52.0); Hemoglobin 13.7 g/dl (14.0-18.0)
[2025-02-26] MEDS: Lactated Ringers 1,000 ML 100 ML IVCONT ×2 (10:07→17:31)
--- NOTE | 2025-02-26 11:26 | MHC.SHP ---
Pre-Procedural Eval Section A - 24 Hr Update-Section A only Date of Service: 02/26/25 The patient is an INPATIENT: No Changes since office visit: No Cold of Flu in the past 2 weeks, No New Medical Problems, No Changes in Medication and No Patient answered all questions The patient has been examined within 24 hours of the surgical procedure. The History & Physical has been completed within 30 days and I have reviewed it.: Yes Section B - Complete if H&P > 30 days Chief Complaint: Other specific arthropathies, not elsewhere classi Allergies: Allergies Allergy/AdvReac Type Severity Reaction Status Date / Time No Known Allergies (No Known Allergy Verified 02/26/25 09:27 Allergies*) Plan I have reviewed the history and physical and performed a pertinent physical examination on my patient. No changes have occurred unless specified. Time Spent With Patient Time: Total time managing care of this patient today ____ minutes.
--- NOTE | 2025-02-26 16:23 | P.BOP_ITS ---
Brief Operative Note Date of Service: 02/26/25 Pre-op diagnosis: right RTC arthropathy Post-op diagnosis: same Procedure: rTSA, right Implants: Tournier Surgeon: Clint Thomas MD Anesthesia: regional Was an Program Development Manager used for this Procedure?: Yes Program Development Manager: Js Marquez Estimated blood loss (mL): 200 IV fluids (mL): 1,200 Pathology: other Condition: stable Disposition: PACU
--- NOTE | 2025-02-26 19:10 | PHA.MEDREC ---
Pharmacy Consult ? Medication Reconciliation Pharmacy has reviewed the medication reconciliation done by nursing. Changed Flecainide 150 to BID from Daily. Patient was told to hold Xarelto 20 mg 3 days prior to surgery.
--- NOTE | 2025-02-26 20:52 | HO.PM.IMCN ---
History of Present Illness Data of Consult Service Date: 02/26/25 Requesting physician: Clint Thomas Primary Care Provider: Richard Castro MD [facility] Reason for consult: medical mangement Patient is a 75-year-old male with a past medical history significant for history of AFib s/p successful cardioversion, BPH, history of MRSA, benign tremor, history non-Hodgkin lymphoma (completed chemotherapy in remission since 2009), history kidney stones, now s/p R RTSA today. The patient reports that he is feeling well and has no concerns currently. He denies any chest pain, shortness of breath, nausea or vomiting. He does still have some numbness and tingling in his 1st 2 digits however reports that he does have sensation. Medical history and medications were reviewed. Review of Systems Review of Systems: Yes all other systems are reviewed and are negative [facility] Medical History Wears hearing aid in both ears [employer] [place] (hard of hearing) History of cardioversion BPH (benign prostatic hyperplasia) Hx MRSA infection (07/2018) Tremor Non-Hodgkin lymphoma Afib Hydronephrosis with renal and ureteral calculous obstruction (2019) Acute UTI Sepsis Calculus, renal Hydronephrosis Functional capacity: independent ambulation Family History Father Throat cancer Mother Melanoma Leukemia Surgical History Hx of colonoscopy Hx of repair of right rotator cuff (~2014) History of left inguinal hernia repair (~2020) History of right inguinal hernia repair (08/28/18) History of bilateral inguinal hernia repair (06/28/17) History of arthroscopy of left knee Social History Household Members: Spouse and Children Housing: House Are you a primary rn urgent care to a significant other at home: No Do you presently have visiting nurse or other home services: No Comment: hematoma right thigh, resolved no fracture with 12/2024 fall, no head strike Patient Tobacco Use Status: Former Tobacco user Tobacco use type: Cigarette Use of substances other than those prescribed or required for medical reasons: No Have you been hit, kicked, punched, or otherwise hurt by someone within the past year? If so, by whom?: No Do you feel safe in your current relationship?: Yes Is there a partner from a previous relationship who is making you feel unsafe now?: No Are you made to feel afraid or neglected: No Are you DNR?: No Advance Directives: No Advance Directives Information Provided: Yes Advance Directives on File: No Do you have a plan to hurt others: No Plan Recently lost weight without trying: No How much weight loss: Not applicable Eating poorly because of decreased appetite: No Nutrition screen score: 0 Nutrition Risks: No Nutritional Risk Poor oral hygiene: No service: Yes Current occupational status: retired Narrative: No smoking, frequent alcohol or drug use Meds Allergies Allergy/AdvReac Type Severity Reaction Status Date / Time No Known Allergies (No Known Allergy Verified 02/26/25 09:27 Allergies*) Active Medications: Current Medications Acetaminophen (Acetaminophen 325 Mg Tablet) 650 mg PO Q6H PRN PRN Reason: Pain, Mild 1-3,fever,headache Celecoxib (Celecoxib 200 Mg Capsule) 200 mg PO BID ALEJANDRO Docusate Sodium (Docusate Sodium 100 Mg Capsule) 100 mg PO BID ALEJANDRO Flecainide Acetate (Flecainide Acetate 50 Mg Tablet) 150 mg PO BID ALEJANDRO Hydromorphone HCl (Hydromorphone Hcl 0.5 Mg/0.5 Ml Syringe) 0.25 mg IVPUSH Q4H PRN; Protocol PRN Reason: Pain, Severe (Pain Scale 7-10) Lactated Ringer's (Lr) 1,000 mls @ 100 mls/hr IVCONT .Q10H [facility] Stop: 02/27/25 08:00 Last Admin: 02/26/25 17:31 Dose: 100 mls/hr Ondansetron HCl (Ondansetron Hcl 4 Mg/2 Ml Vial) 4 mg IVPUSH Q8H PRN PRN Reason: Nausea and Vomiting Oxycodone HCl (Oxycodone Hcl Immed Release 5 Mg Tablet) 5 mg PO Q4H PRN PRN Reason: Pain, Moderate(Pain Scale 4-6) Propranolol HCl (Propranolol Hcl La 80 Mg Cap.Sa.24h) 80 mg PO DAILY PRN; Protocol PRN Reason: Tremor(S) Sodium Chloride (0.9 % Sodium Chloride Flush 3 Ml Syringe) 3 ml IVFLUSH QSHIFT [facility] Tamsulosin HCl (Tamsulosin Hcl 0.4 Mg Capsule) 0.4 mg PO BEDTIME [facility] Home Medications ?Medication ?Instructions ?Recorded ?Confirmed ?Last Taken ?Type diltiazem HCl 120 mg 120 mg PO DAILY 07/14/20 02/26/25 02/26/25 History capsule,extended release 24 hr (Cartia XT) propranolol 80 mg capsule,24 80 mg PO NEEDED PRN Tremor(S) 07/15/20 02/26/25 02/26/25 History hr,extended release tamsulosin 0.4 mg capsule 0.4 mg PO DAILY 12/26/23 02/26/25 Unknown History rivaroxaban 20 mg tablet (Xarelto) 20 mg PO QPM 01/29/25 02/26/25 02/22/25 History flecainide 150 mg tablet 150 mg PO BID 02/26/25 02/26/25 02/26/25 History Physical Exam Vital Signs and Narrative: Vital Signs: Last Vital Signs Temp 98.6 F 02/26/25 19:30 Pulse 75 02/26/25 19:30 Resp 18 02/26/25 19:30 BP 110/66 02/26/25 19:30 Pulse Ox 94 02/26/25 19:30 O2 Del Method Room Air 02/26/25 19:30 O2 Flow Rate 2 02/26/25 16:48 FiO2 36 02/26/25 16:48 BMI result Body Mass Index 28.0 General: AOx3, no acute distress Resp: CTA bilaterally CVS: S1, S2, RRR GI: +BS, NT, no distention Skin: Warm, dry Neuro: Cranial nerves II-XII grossly intact bilaterally. Motor grossly intact bilaterally Extremities: No LE edema. normal capillary refill RUE. sensation and motor intact in hand. Psych: Appropriate affect Results Labs 02/26/25 09:32 02/21/25 10:13 Imaging Radiologist's Impressions: Impressions Shoulder X-Ray 02/26/25 15:39 IMPRESSION: Reverse total right shoulder arthroplasty. Right axillary lymph node dissection. Electronically signed by: Cornell Alaniz MD 02/26/2025 05:02 PM EDT Assessment and Plan (1) S/P right rotator cuff repair: Status: Acute Plan Patient is a 75-year-old male with a past medical history significant for history of AFib s/p successful cardioversion, BPH, history of MRSA, benign tremor, history non-Hodgkin lymphoma (completed chemotherapy in remission since 2009), history kidney stones, now s/p R RTSA today. s/p R RTSA - POD 0 - plan per ortho - pain well managed at this time a fib - continue fleccanide and diltiazem - anticoagulation per ortho BPH - continue flomax benign tremor - hold propranolol for now, pt does not feel it is needed at this time Thank you for allowing me to participate in the pt's care. Signing off. Please contact the medical team if any questions or concerns.
[2025-02-27 03:00] VITALS: BP 118/71; PULSE 91; RESP 18; TEMP 36.4; O2SAT 92
[2025-02-27] MEDS: Lactated Ringers 1,000 ML 100 ML IVCONT (03:44)
--- NOTE | 2025-02-27 03:55 | PC.NURSE ---
pt reports slight numbness and tingling in R thumb and pointer finger (operative side). Pt able to move fingers. Skin is warm and pink.
[2025-02-27 05:47] LABS: MANUAL DIFF FLAG NO
[2025-02-27 05:50] LABS: Hematocrit 30.3 % (42.0-52.0); Hemoglobin 10.4 g/dl (14.0-18.0); Imm Gran Abs Auto 0.07 X10*3/uL (0.00-0.03); Imm Gran Pct Auto 0.6 % (0.0-0.4); Lymphocytes Absolute Auto 0.7 X10*3/uL (1.2-4.9); Mean Corpuscular HGB Conc 34.3 g/dl (31.0-36.0); Mean Corpuscular Hemoglobin 31.5 pg (27.0-33.0); Mean Corpuscular Volume 91.8 fL (80.0-98.0); NRBC Abs Auto 0.000 X10*3/uL (0.0-0.012); NRBC Pct Auto 0.0 /100WBC (0.0-0.2); Platelet Count 185 X10*3/uL (160-400); Red Blood Count 3.30 X10*6/uL (4.60-5.80); White Blood Count 11.9 X10*3/uL (4.8-10.8)
[2025-02-27 06:04] LABS: Anion Gap 12 (12-20); Blood Urea Nitrogen 16 mg/dL (9-16); Calcium 8.0 mg/dL (8.4-10.2); Carbon Dioxide 20 mmol/L (22-29); Chloride 108 mmol/L (96-108); Creatinine Clr Calc Pharmacy 90.6; Estimated Glomerular Filt Rate > 60; Potassium 4.2 mmol/L (3.3-5.1); Sodium 136 mmol/L (135-145)
[2025-02-27 06:52] VITALS: BP 98/62; PULSE 87; RESP 16; TEMP 36.6; O2SAT 92
--- NOTE | 2025-02-27 08:29 | HO.POSTANES ---
Post Anesthesia Evaluation Post Anesthesia Evaluation Date of Service: 02/27/25 Vital Signs: Vital Signs Temp Pulse Resp BP Pulse Ox O2 Del Method 02/27/25 06:52 97.9 F 87 16 98/62 92 Room Air 02/27/25 03:00 97.5 F 91 18 118/71 92 Room Air 02/26/25 23:00 97.5 F 72 18 93/57 L 95 Room Air Anesthesia: Nerve Block and General Mental Status: Awake Pain Control: Satisfactory Nausea/Vomiting: None Hydration: Adequate Anesthesia-Related Issues: No Anes. Related Issues
--- NOTE | 2025-02-27 08:45 | MHC.CM.PN ---
pt dcd home with hvns has own ride pt lives with
--- NOTE | 2025-03-01 11:38 | P.OP_ITS ---
Operative Note Operative Note Date of Service: 02/26/25 Narrative: Date of Service: 02/26/25 Pre-op diagnosis: right RTC arthropathy Post-op diagnosis: same Procedure: rTSA, right Implants: Tournier 29+ lateralized base plate, 39 eccentric +3 glenosphere, 5B flex stem, +0 centered tray, 39+ 6 C polyp. Surgeon: Clint Thomas MD Anesthesia: regional Was an Revenue Cycle Administrator used for this Procedure?: Yes Revenue Cycle Administrator: Js Marquez Estimated blood loss (mL): 200 IV fluids (mL): 1,200 Pathology: other Condition: stable Disposition: PACU Patient was brought to the operating room and placed in the beach chair position on the surgical table. The limb was prepped and draped in standard sterile fashion and a time out was called to identify proper site, proper procedure and IV antibiotics per weight were administered. I began by making a deltopectoral incision from the coracoid to the pectoralis insertion. Blunt dissection identified the cephalic vein which was retracted laterally. Blunt dissection was taken down to the 3 sisters which were cauterized. I then made a full-thickness capsulotomy involving the subscapularis. This was then tagged and the arm was externally rotated and extended and the head was dislocated. The humeral head was high riding and required a release of the intact posterior fibers of the rotator cuff. Once the head was well visualized a anatomic neck cut was made in approximately 132 degree angle while protecting the posterior and inferior soft tissues. A starter awl was used to identify the canal and then I broached up to a size 5 at 30 degrees of version. I then placed my head protector and turned my attention to the glenoid. Posterior anterior and superior glenoid retractors were placed and the biceps was tenotomized and labral tissue was removed. Based on the preoperative CT and templating a guide pin was placed in matching retroversion and 10 deg inclination. Using a wedge Reamer I reamed down to bleeding bone mostly inferiorly and placed the size 29 glenoid drill guide. My central screw was drilled the 29 lateralized base plate implant was inserted. I then placed one proximal nonlocking and 2 locking screws circumferentially around the central screw. I then placed a 39 eccentric +3 glenosphere as per the preoperative plan. I then returned to the humerus where I trialed a 5B flex stem with a +0 center tray and a 39+ 6 C poly. I was satisfied with the stability of the implants. There was a deltoid indentation and a nice reduction with stability at all ranges. I was satisfied with both the stability and the range of motion and therefore my final stem with a centered tray was placed on the back table and inserted in standard fashion. 39+ 6 poly was again trialed and I was again happy with the stability and my final implants were placed. Once I was satisfied with the range of motion and stability I irrigated copiously. Subscapularis was repaired with FiberWire. I closed in a layered fashion with absorbable suture and david and the patient was placed in a sterile dressing and an abduction sling. She was extubated brought to recovery room stable condition there were no known complications.
== END 2025-02-27 10:03 | disposition home health service (06) ==
LOC: HO.SSS 08:59 → HO.S3 17:04
PROVIDERS: Physician Assistant; PCP Internal Medicine; Visit Provider Orthopaedic Surgery
PROC: (CPT 23472; principal; 2025-02-26 12:30)
DX: M12.811 Other specific arthropathies, not elsewhere classified, right shoulder (principal); R20.0 Anesthesia of skin; R20.2 Paresthesia of skin; I48.91 Unspecified atrial fibrillation; G25.0 Essential tremor; N40.0 Benign prostatic hyperplasia without lower urinary tract symptoms; N20.0 Calculus of kidney; H91.93 Unspecified hearing loss, bilateral; Z97.4 Presence of external hearing-aid; Z85.72 Personal history of non-Hodgkin lymphomas; Z92.21 Personal history of antineoplastic chemotherapy; Z86.14 Personal history of Methicillin resistant Staphylococcus aureus infection; Z87.891 Personal history of nicotine dependence; Z79.01 Long term (current) use of anticoagulants; Z79.899 Other long term (current) drug therapy; Z98.890 Other specified postprocedural states
CPT/HCPCS: 23472; 36415; 73020; 80048; 85014; 85018; 85025; 86850; 86900; 86901; 87640; 87641; 88304; 88311; 97165; C1713; C1776; J0131; J0665; J0690; J1100; J2003; J2250; J2405; J2704; J3010; J7120

== ENCOUNTER → 2025-02-26 08:58 | Outpatient (BNV) | payer MEDICARE, SELFPAY | PROVIDERS: PCP Internal Medicine; Visit Provider Orthopaedic Surgery | DX: Z47.1 Aftercare following joint replacement surgery (principal); Z96.611 Presence of right artificial shoulder joint | CPT/HCPCS: 23472; 99024; G0180 ==

== ENCOUNTER → 2025-02-26 08:58 | Outpatient (BNV) | payer MEDICARE, SELFPAY | PROVIDERS: PCP Internal Medicine; Visit Provider Physician Assistant | DX: Z98.890 Other specified postprocedural states (principal) | CPT/HCPCS: 99222 ==

== ENCOUNTER → 2025-02-26 16:32 | Outpatient (BNV) | payer MEDICARE, SELFPAY | PROVIDERS: PCP Internal Medicine; Visit Provider Radiology Diagnostic Radiology | DX: M12.811 Other specific arthropathies, not elsewhere classified, right shoulder (principal); Z96.611 Presence of right artificial shoulder joint | CPT/HCPCS: 73020 ==

== ENCOUNTER 2025-03-14 09:43 | Outpatient (REF) | payer MEDICARE, SELFPAY ==
--- NOTE | ~2025-03-14 | XR_ITS ---
EXAMINATION: XR SHOULDER 2 OR MORE VIEWS RIGHT HISTORY: M25.511 - Pain in right shoulder COMPARISON: Comparison is made with the prior examination dated 02/26/2025. FINDINGS: Two views of the right shoulder are submitted. The patient is again noted to be status post reverse total shoulder arthroplasty. The orthopedic elements are in alignment. There is no radiographic evidence of loosening. There is no fracture or dislocation. There are surgical clips in the left axilla. XR/XR shoulder RT min 2V IMPRESSION: Status post right reverse total shoulder arthroplasty. Electronically signed by: Smith Dwyer MD 03/14/2025 03:10 PM EDT
--- OUTSIDE RECORDS SUMMARY | 2025-03-14 10:11 | XMS_ITS | Patient Health Record ---
Author Organization [facility] Address [address] [place] [address] Care Team Providers Care Optometric Tech Name Role Phone Richard Castro MD Primary [...] Problem Status W/U Status Risk Notes Problem 27185865 Hemorrhoids (455.6) Active confirmed Problem 741936663 Colon cancer screening (V76.51) Active confirmed Problem 422810182 Abnormal findings in stool (792.1) Active confirmed Plan Of Treatment Future Test Test Name Order Date COLONOSCOPY 07/26/2014 Insurance Providers Payer Name Payer Address Payer Phone Subscriber Number Group Number Insured Name Patient Relationship to Insured Coverage Start Date Coverage End Date [facility] [address] [address] [place] [address] [id number] ROOSEVELT SAMUELS Self - patient is the insured MEDICARE OF [place] [address] [place] [address] [id number] ROOSEVELT SAMUELS Self - patient is the insured Medical (General) History Medical History History ICD Code lymphoma Atrial fibrillation mitral valve prolapse Surgical History Surgery Date(Month/Year) lymphectomy 1 node under arm 2010
--- OUTSIDE RECORDS SUMMARY | 2025-03-14 10:11 | XMS_ITS | Patient Health Record ---
Author Organization Richard Castro MD Address [address] [place], [place] [id number] Care Team Providers Care Computer Repair Technician Name Role Phone Richard Castro Primary Care Provider Allergies No Known Allergies Results Component Value Reference Range Notes Complete Blood Count Auto Di ff Reviewed date:07/03/2024 08:00:30 PM Interpretation: Performing Lab:[facility], [address] [place] [phone] Notes/Report: White Blood Count 7.5 4.8-10.8 X10*3/uL [...] 0.0-0.2 /100WBC Neutrophils Absolute Auto 4.9 2.0-8.3 x10*3/uL Imm Gran Abs Auto 0.02 0.00-0.03 X10*3/uL Lymphocytes Absolute Auto 1.8 1.2-4.9 X10*3/uL Monocytes Absolute Auto 0.6 0.1-1.2 X10*3/uL Eosinophils Absolute Auto 0.2 0.0-0.4 X10*3/uL Basophils Absolute Auto 0.0 0.0-0.2 X10*3/uL NRBC Abs Auto 0.000 0.0-0.012 X10*3/uL Comprehensive [place]. Panel Fa st Reviewed date:07/03/2024 08:16:51 PM Interpretation: Performing Lab:[facility], [address] [place] [phone] Notes/Report: Sodium 138 135-145 mmol/L Potassium 4.1 [...] Panel Reviewed date:07/03/2024 08:01:49 PM Interpretation: Performing Lab:[facility], [address] [place] [phone] Notes/Report: Triglycerides 98 <150 mg/dL Desirable Triglyceride: [...] date:07/17/2024 04:52:07 PM Interpretation:see back 07-17-2024 Performing Lab:[facility], [address] [place] [phone] Notes/Report: PSA,Total (Free>4and<10) 5.94 0.00-4.00 ng/mL PSA methodology: Burgess Alinity i Chemiluminescent Microparticle Immunoassay (CMIA) UA ClnCatch+Micro w/rflx Cul t Reviewed date:07/03/2024 08:03:57 PM Interpretation: Performing Lab:[facility], [address] [place] [phone] Notes/Report: Urine, Clean Catch Color Urine Yellow Appearance Urine Clear PH 5.5 5.0-9.0 Glucose Urine UA Negative Negative mg/dL Urine Blood Negative Negative Specific [place] - Urine 1.015 1.005-1.025 Urine Protein Negative [...] ff Reviewed date:12/24/2024 05:16:55 PM Interpretation: Performing Lab:[facility], [address] [place] [phone] Notes/Report: White Blood Count 8.2 4.8-10.8 X10*3/uL [...] 0.0-0.2 /100WBC Neutrophils Absolute Auto 4.7 2.0-8.3 x10*3/uL Imm Gran Abs Auto 0.02 0.00-0.03 X10*3/uL Lymphocytes Absolute Auto 2.3 1.2-4.9 X10*3/uL Monocytes Absolute Auto 0.8 0.1-1.2 X10*3/uL Eosinophils Absolute Auto 0.3 0.0-0.4 X10*3/uL Basophils Absolute Auto 0.1 0.0-0.2 X10*3/uL NRBC Abs Auto 0.000 0.0-0.012 X10*3/uL Comprehensive Met. Panel Reviewed date:12/24/2024 05:16:08 PM Interpretation: Performing Lab:[facility], [address] [place] [phone] Notes/Report: Sodium 137 135-145 mmol/L Potassium 4.2 [...] 3.5-5.0 g/dL Alkaline Phosphatase 83 39-117 U/L PSA Free and Total Reviewed date:07/23/2024 08:09:01 AM Interpretation:cback psa 07/17 Performing Lab:[facility], [address] [place] [phone] Notes/Report: Prostate Specific Ag Total 6.2 < OR = 4.0 ng/mL Percent Free Prostate Spec Ag 21 >25 % (calc) PSA(ng/mL) Free PSA(%) Estimated(x) Probability of Cancer(as%) 0-2.5 (*) Approx. 1 2.6-4.0(1) 0-27(2) 24(3) 4.1-10(4) 0-10 56 11-15 28 16-20 20 21-25 16 >or =26 8 >10(+) N/A >50 References:(1)Jasono na et al.:Urology 60: 469-474 (2002) (2)Caden et al.:J.Urol 168: 922-925 (2001) Free PSA(%) Sensitivity(%) Specificity(%) < or = 25 85 19 < or = 30 93 9 (3)Catalona et al.:MICHI 277: 4469-3735 (1996) (4)Catalona et al.:MICHI 279: 0016-8610 (1997) (x)These estimates vary with age, ethnicity, [...] mind. PSA was performed using the Zulema Marilla Immunoassay method. Values obtained from different assay methods cannot be used interchangeably. PSA levels, regardless of value, should not be interpreted as absolute evidence of the presence or absence of disease. THIS TEST WAS PERFORMED AT: [facility] [address] [place] [phone] CLAUS SEALS MD Free Prostate Spec Ag 1.3 CT shoulder RT wo con Reviewed date:12/19/2024 05:35:49 PM Interpretation: Performing Lab: Notes/Report: [place] [address] CT Scan Report Signed Patient: Joselito Hurd MR#: [id number] : 1950 Acct:[id number] Age/Sex: 74 / M ADM Date: 12/17/24 Loc: HO.CT Attending Dr: Js Marquez PA-C Ordering Physician: Js Marquez PA-C Date of Service: 12/17/24 Procedure(s): CT shoulder RT wo IV con Accession Number(s): [id number] cc: Richard Castro MD; Js Marquez PA-C Report Number: [id number]: Total DLP = 283.00 mGy-cm CLINICAL HISTORY: [...] in OV> 12/19/24913 DD/ 2 TD/TT: 12/19/24912 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 Type 2 acromion. Mod erate degenerative change of the AC joint. No [...] Dictated By: Gurdeep Reaves MD Signed By: <Caty mojica signed by Gurdeep Reaves MD in OV> 12/19/24913 DD/ 2 TD/TT: 12/19/24912 Egg Factory Worker: MRSA Nasal Screen Reviewed date:01/29/2025 05:00:18 PM Interpretation: Performing Lab:[facility], [address] [place] [phone] Notes/Report: MRSA Nasal PCR NEGATIVE Negative SA Nasal PCR NEGATIVE Negative MRSA Interpretation SEE NOTE MRSA target DNA not detected; SA target DNA not detected. A MRSA NEGATIVE, SA NEGATIVE test result does not preclude MRSA or SA nasal colonization. Complete Blood Count Auto Di ff Reviewed date:02/21/2025 05:04:30 PM Interpretation: Performing Lab:[facility], [address] [place] [phone] Notes/Report: White Blood Count 5.4 4.8-10.8 X10*3/uL Red Blood Count 4.02 4.60-5.80 X10*6/uL Hemoglobin 12.7 14.0-18.0 g/dl Hematocrit 37.3 42.0-52.0 % Mean Corpuscular Volume 92.8 80.0-98.0 fL Mean Corpuscular Hemoglobin 31.6 27.0-33.0 pg Mean Corpuscular HGB Conc 34.0 31.0-36.0 g/dl Red Cell Distribution Width 15.0 11.0-16.0 % Platelet Count 228 160-400 X10*3/uL Mean Platelet Volume 9.8 9.4-12.4 fL Neutrophils Percent Auto 50.8 45-73 % Imm Gran Pct Auto 0.2 0.0-0.4 % Lymphocytes Percent Auto 33.9 20-40 % Monocytes Percent Auto 10.7 2-11 % Eosinophils Percent Auto 3.7 0-4 % Basophils Percent Auto 0.7 0-2 % NRBC Pct Auto 0.0 0.0-0.2 /100WBC Neutrophils Absolute Auto 2.8 2.0-8.3 x10*3/uL Imm Gran Abs Auto 0.01 0.00-0.03 X10*3/uL Lymphocytes Absolute Auto 1.8 1.2-4.9 X10*3/uL Monocytes Absolute Auto 0.6 0.1-1.2 X10*3/uL Eosinophils Absolute Auto 0.2 0.0-0.4 X10*3/uL Basophils Absolute Auto 0.0 0.0-0.2 X10*3/uL NRBC Abs Auto 0.000 0.0-0.012 X10*3/uL Basic Metabolic Panel Reviewed date:02/21/2025 04:13:13 PM Interpretation: Performing Lab:[facility], [address] [place] [phone] Notes/Report: Sodium 138 135-145 mmol/L Potassium 4.5 3.3-5.1 mmol/L Chloride 107 96-108 mmol/L Carbon Dioxide 27 22-29 mmol/L Anion Gap 9 12-20 Blood Urea Nitrogen 23 9-16 mg/dL Creatinine 1.05 0.5-1.4 mg/dL Creatinine Clr Calc Pharmacy 64.7 eGFR (calculated from the MDRD study equation) and eCrCl (calculated from the Cockcroft-Gault equation) are based on different parameters and may not yield comparable results. If eCrCl result is absurd, please check patient's height/weight. Estimated Glomerular Filt Rate > 60 Chronic Kidney Disease: Estimated GFR < 60 mL/min/1.73m2 Severe Kidney Disease: Estimated GFR < 15 mL/min/1.73m2 Glucose Random 87 60-115 mg/dL Calcium 8.8 8.4-10.2 mg/dL Type and Screen Reviewed date:02/21/2025 04:00:33 PM Interpretation: Performing Lab:[facility], [address] [place] [phone] Notes/Report: Spec expiration changed by ARPITA on 02/21/25 Reason: PAT NURSING: Call Blood Bank (ext. [phone]) to band patient on admission. Type and Screen in effect until 2300 on 02/26/25 Witnessed by [facility][1] Blood Type AP Antibody Screen NEGATIVE Hemoglobin and Hematocrit Reviewed date:02/26/2025 12:28:58 PM Interpretation: Performing Lab:[facility], [address] [place] [phone] Notes/Report: Hemoglobin 13.7 14.0-18.0 g/dl Hematocrit 40.8 42.0-52.0 % Pathology Reviewed date:02/28/2025 05:07:11 PM Interpretation: Performing Lab:[facility], [address] [place] [phone] Notes/Report: ------ Name: Joselito Hurd Sr Age/Sex: 75/M : 1950 Unit#: [id number] Attend Dr: Clint Thomas MD Re02/26/25 Status : [facility] Location: [facility] Disch: ------ SPEC : [id number] RECD : 02/27/25 STATUS: EARNEST WALLER NUM: [id number] KRISTINA: 02/26/25-[address] [facility] [address]: Clint Thomas MD ENTERED: 02/27/25 53 SP TYPE: Surgical OTHR DR: Richard Castro MD ORDERED: Gross Micro L3, Decal Diagnosis Right shoulder, arthroplasty: Bone and cartilage with mild regenerative changes. Clinical History Other specific arthropathies, right shoulder Microscopic Description Microscopic sections reviewed. Material Received Bone right shoulder Gross Description Received in formalin labeled ?bone right shoulder? is a 5.5 cm in diameter and 2.0 cm in height humeral head with a tapia, white-yellow and tapia-brown articular surface. The exposed trabecular bone is d ense, tapia-yellow with tapia-brown bone marrow. On sectioning the cartilage ranges fro m 0.15-0.25 cm in thickness. The subarticular and intramedullary trabecular bone is d ense, yet, brittle, tapia-yellow with yellow-pink bone marrow. Automation Qa Analyst secti ons are submitted in a cassette labeled A1 following decalcification. CEDS IHC S/NG Disclaimer NOTE: Unless otherwi se stated, all tissue is formalin-fixed and paraffin-embedded. Some or all of the immunohistochemical tests reported herein may have been developed and their performance characteristics determined by [facility]. They have not been cleared or appr saima by the U.S. Food and Drug Administration (FDA). However, the FDA has determined that such clearance or approval is not necessary. This laboratory is certified under the Clinical Laboratory Improvement Amendments of 1988 (CLIA) as qualified to perform high comp lexity clinical laboratory testing. Copies To: Richard Castro MD [facility] [address] [place] [address] CONTINUED ON NEXT PAGE ------ Name: Joselito Hurd Sr Age/Sex: 75/M : 1950 Unit#: [id number] Attend Dr: Clint Thomas MD Re02/26/25 Status : [facility] Location: [facility] Disch: ------ SPEC : [id number] RECD : 02/27/25 STATUS: MARYJazlyn SRIDHAR NUM: [id number] KRISTINA: 02/26/25-[address] [facility] [address]: Clint Thomas MD ENTERED: 02/27/25 53 SP TYPE: Surgical OTHR DR: Richard Castro MD ORDERED: Gross Micro L3, Decal Copies To: (Continued) Clint Thomas MD [facility] [address] [place] [address] [address] [place] [address] ------ Signed (signature on file) Leon Keene MD 02/28/25 1146 ------ END OF REPORT XR shoulder RT 1V Reviewed date:02/26/2025 05:10:31 PM Interpretation: Performing Lab: Notes/Report: [address] [address] XRay Report Signed Patient: Joselito Hurd Sr MR#: [id number] : 1950 Acct:[id number] Age/Sex: 75 / M ADM Date: 02/26/25 Loc: .S3 345-[address]: Clint Thomas MD Ordering Physician: Js Marquez PA-C Date of Service: 02/26/25 Procedure(s): XR shoulder RT 1V Accession Number(s): [id number] cc: Richard Castro MD; Js Marquez PA-C EXAMINATION: XR SHOULDER, RIGHT CLINICAL INFORMATION: TSA COMPARISON: December 26, 2023 TECHNIQUE: AP external rotation view of the right shoulder. FINDINGS: Limited single view x-ray. Right axillary clips are stable. There are new david projecting over the medial left shoulder joint. Postoperative changes are present related to first toe shoulder arthroplasty. XR/XR shoulder RT 1V IMPRESSION: Reverse total right shoulder arthroplasty. Right axillary lymph node dissection. Electronically signed by: Cornell Alaniz MD 02/26/2025 05:02 PM EDT Dictated By: Cornell Alaniz MD Signed By: <Electronically signed by Cornell Alaniz MD in OV> 02/26/25 1702 DD/ 1539 TD/TT: 02/26/25 1642 Egg Factory Worker: [address] [address] XRay Report Signed Patient: Flavia Hurd Sr MR#: [id number] : 1950 Acct:[id number] Age/Sex: 75 / M ADM Date: 02/26/25 Loc: .S3 345-[address]: Clint ellison MD Ordering Physician: Js Marquez PA-C Date of Service: 02/26/25 Procedure(s): XR staci ulder RT 1V Accession Number(s): [id number] cc: Richard Castro MD; Js Marquez PA-C EXAMINATION: XR SHOULDER, RIGHT CLINICAL INFORMATION: TSA COMPARISON: December 26, 2023 TECHNIQUE: AP external rotation view of the right shoulder. FINDINGS: Limited single view x-ray. Right axillary clips are stable. There are new staple s projecting over the medial left shoulder joint. Postoperative change s are present related to first toe shoulder arthroplasty. X R/XR shoulder RT 1V IMPRESSION: Reverse total right shoulder arthroplasty. Right axillary lymph node dissection. Electronically micaela d by: Cornell Alaniz MD 02/26/2025 05:02 PM EDT RP Dictated By: Cornell Alaniz MD Signed By: <Caty icamarii signed by Cornell Alaniz MD in OV> 02/26/25 1702 DD/ 1539 TD/TT: 02/26/25 1642 Egg Factory Worker: Complete Blood Count Auto Di ff Reviewed date:02/27/2025 04:10:37 PM Interpretation: Performing Lab:[facility], [address] [place] [phone] Notes/Report: White Blood Count 11.9 4.8-10.8 X10*3/uL Red Blood Count 3.30 4.60-5.80 X10*6/uL Hemoglobin 10.4 14.0-18.0 g/dl Hematocrit 30.3 42.0-52.0 % Mean Corpuscular Volume 91.8 80.0-98.0 fL Mean Corpuscular Hemoglobin 31.5 27.0-33.0 pg Mean Corpuscular HGB Conc 34.3 31.0-36.0 g/dl Red Cell Distribution Width 14.7 11.0-16.0 % Platelet Count 185 160-400 X10*3/uL Mean Platelet Volume 10.0 9.4-12.4 fL Neutrophils Percent Auto 87.8 45-73 % Imm Gran Pct Auto 0.6 0.0-0.4 % Lymphocytes Percent Auto 6.1 20-40 % Monocytes Percent Auto 5.4 2-11 % Eosinophils Percent Auto 0.0 0-4 % Basophils Percent Auto 0.1 0-2 % NRBC Pct Auto 0.0 0.0-0.2 /100WBC Neutrophils Absolute Auto 10.4 2.0-8.3 x10*3/uL Imm Gran Abs Auto 0.07 0.00-0.03 X10*3/uL Lymphocytes Absolute Auto 0.7 1.2-4.9 X10*3/uL Monocytes Absolute Auto 0.6 0.1-1.2 X10*3/uL Eosinophils Absolute Auto 0.0 0.0-0.4 X10*3/uL Basophils Absolute Auto 0.0 0.0-0.2 X10*3/uL NRBC Abs Auto 0.000 0.0-0.012 X10*3/uL Basic Metabolic Panel Fastin g Reviewed date:02/27/2025 04:01:26 PM Interpretation: Performing Lab:[facility], [address] [place] [phone] Notes/Report: Sodium 136 135-145 mmol/L Potassium 4.2 3.3-5.1 mmol/L Chloride 108 96-108 mmol/L Carbon Dioxide 20 22-29 mmol/L Anion Gap 12 12-20 Blood Urea Nitrogen 16 9-16 mg/dL Creatinine 0.80 0.5-1.4 mg/dL Creatinine Clr Calc Pharmacy 90.6 eGFR (calculated from the MDRD study equation) and eCrCl (calculated from the Cockcroft-Gault equation) are based on different parameters and may not yield comparable results. If eCrCl result is absurd, please check patient's height/weight. Estimated Glomerular Filt Rate > 60 Chronic Kidney Disease: Estimated GFR < 60 mL/min/1.73m2 Severe Kidney Disease: Estimated GFR < 15 mL/min/1.73m2 Glucose Fasting 121 60-99 mg/dL A fasting glucose from 100-125 mg/dl is considered impaired (pre-diabetes). 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) Active confirmed Problem Elevated LDL cholesterol level (E78.0) Active confirmed Problem 402842979 Non-rheumatic mi tral regurgitation (I34.0) Active confirmed Problem 635583933 Pure hypercholesterolemia (E78.00) Active confirmed Problem 665306240 Elevated PSA (R97.20) Active confirme d Problem 748121212 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 confirmed Problem 86316730 Hydronephrosis 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) Active confirmed Problem 778661277 Elevated serum cholesterol (E78.9) Active confirmed Problem 757768924 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 Vital Signs Blood pressure diastolic 70 mm Hg 12/24/2024 Height 70.50 in 12/24/2024 Blood pressure systolic 118 mm Hg 12/24/2024 Weight 200 lbs 12/24/2024 BMI 28.29 kg/m2 12/24/2024 Encounters Encounter Location Date Provider Diagnosis Richard Castro MD [address] [place] [id number] 07/03/2024 Richard Castro Elevated PSA R97.20 ; Encounter for immunization Z23 and Pure hypercholesterolemia E78.00 Richard Castro MD [address] [place] [id number] 07/17/2024 Richard Castro Essential tremor G25 .0 ; Pure hypercholesterolemia E78.00 ; Elevated PSA R97.20 ; Paroxysmal atrial fibrillation I48.0 ; Colon cancer screening Z12.11 and Depression screening Z13.31 Richard Castro MD [address] [place] [id number] 12/24/2024 Richard Castro Mass in neck R22.1 ; Right shoulder pain, unspecified chronicity M25.511 and Preop examination Z01.818 Richard Castro MD [address] [place] [address] Drive [address] [place] [id number] 01/15/2025 Richard Castro MD [address] [place] [id number] 02/28/2025 Richard Castro Assessments Encounter Date Diagnosis (ICD Code) Assessment Notes Treatment Notes Treatment Clinical Notes Section Notes 07/03/2024 Elevated PSA (ICD-10 - R97.20) 07/03/2024 Encounter for immunization (ICD-10 - Z23) 07/17/2024 Essential tremor (ICD-10 - G25.0) 07/17/2024 Pure hypercholesterolemia (ICD-10 - E78.00) 12/24/2024 Mass in neck (ICD-10 - R22.1) THE ORDER WAS FAXED TO [facility], pending diagnsotic testing 12/24/2024 Right shoulder [...] his shoulder surgery if cleared by his wood cabinetmaker 07/17/2024 Paroxysmal atrial fibrillation (ICD-10 - I48.0) have warned him of the risk of stroke and he should be on anticoag. he is going to think about it and get back to me or maybe wait/ get last note from [facility] 07/17/2024 Colon cancer screeni ng (ICD-10 - Z12.11) guaiac negative 07/17/2024 Depression screening (ICD-10 - Z13.31) negative screen Plan Of Treatment Pending Test Test Name Order Date US RENAL BILATERAL 07/17/2020 US RENAL BILATERAL 07/24/2020 US soft tiss head and/or neck 12/24/2024 Future Test Test Name Order Date US RENAL BILATERAL 07/29/2021 Next Appt Details Provider Name:Richard Chatman ier, 07/05/2025 07:30:00 AM, [address] [place] [address], [address], [phone], Provider Name:Richard Chatman ier, 07/18/2025 01:00:00 PM, [address] [place] [address], Suite [facility], [place], [place], [phone], Insurance Providers Payer Name Payer Address Payer Phone Subscriber Number Group Number Insured Name Patient Relationship to Insured Coverage Start Date Coverage End Date [employer] [address] [place] [address] [id number] Joselito Hurd Self - patient is the insured MEDEX BC OF [facility] [address] [place] [address] [id number] Joselito Hurd Self - patient is the [...]
== END 2025-03-14 09:44 | disposition home or self-care (01) ==
LOC: HO.HOSX 09:43
PROVIDERS: Visit Provider Physician Assistant
DX: Z47.1 Aftercare following joint replacement surgery (principal); M25.511 Pain in right shoulder; Z79.899 Other long term (current) drug therapy; Z96.611 Presence of right artificial shoulder joint
CPT/HCPCS: 73030; 99212

== ENCOUNTER 2025-03-14 14:40 | Outpatient (AMB) | payer MEDICARE, SELFPAY ==
--- NOTE | 2025-03-14 14:59 | A.OFFVIS_ITS ---
Intake Visit Reasons: 2WKPO: r RTSA w/NE 02/26/25 Intake Note: Joselito is a 75 year old male who presents today post operatively after undergoing a reverse RT TSA, DOS: 02/26/[address] Thomas. Patient reports he is doing well, states not having any pain. Allergies No Known Allergies (No Known Allergies*) Allergy (Verified 03/14/25 15:04) Medication List - Last Reconciled 03/14/25 by Js Marquez PA-C diltiazem HCl CD (Cartia XT) 120 mg PO DAILY flecainide 150 mg PO BID propranolol ER 80 mg PO NEEDED PRN rivaroxaban (Xarelto) 20 mg PO QPM tamsulosin 0.4 mg PO DAILY HPI HPI 2WKPO: r RTSA w/NE 02/26/25: Details: 75 yo male presents to the office today f/u r RTSA 02/26/25 with NE. He states he is doing well. Beings out patients PT in the next few days. No concerns. PFSH Medical History Wears hearing aid in both ears [place] (hard of hearing) History of cardioversion BPH (benign prostatic hyperplasia) Hx MRSA infection (07/2018) Tremor Non-Hodgkin lymphoma Afib Hydronephrosis with renal and ureteral calculous obstruction (2019) Acute UTI Sepsis Calculus, renal Hydronephrosis Surgical History S/P right rotator cuff repair Hx of colonoscopy Hx of repair of right rotator cuff (~2014) History of left inguinal hernia repair (~2020) History of right inguinal hernia repair (08/28/18) History of bilateral inguinal hernia repair (06/28/17) History of arthroscopy of left knee Family History Father Throat cancer Mother Melanoma Leukemia Social History Household Members: Spouse and Children Housing: House Are you a primary caregivers homecare to a significant other at home: No Do you presently have visiting nurse or other home services: No 75 years or older and lives alone: No Comment: hematoma right thigh, resolved no fracture with 12/2024 fall, no head strike Patient Tobacco Use Status: Former Tobacco user Tobacco use type: Cigarette service: Yes Current occupational status: retired Review of Systems Const All systems reviewed & are unremarkable except as noted in HPI and below Physical Exam Extrem Other: Right shoulder incision is clean dry and intact no erythema or drainage. Deltoid sensation is intact. He has good range of motion of his elbow and he can perform wrist flexion extension. Results Reviewed Results Reviewed: X-rays of the right shoulder obtained in the office today and reviewed by me show intact shoulder prosthesis. Assessment & Plan Assessment & Plan (1) Status post reverse total arthroplasty of right shoulder: Code(s): Z96.611 - Presence of right artificial shoulder joint Category: Surgical Plan: Y[place] removed today Steri-Strips applied. I did review the use of the sling with the patient. He should use it while sleeping and when he is out of the house. He can remove all in the house to work on exercises and to allow his shoulder to hang and rest at his side. He should avoid any lifting overhead or reaching behind the body or pushing off with the right shoulder. He will avoid showering or getting that incision wet for the next 2 weeks to ensure proper healing. He is to begin physical therapy next week and he will see us back in 4 weeks with x-rays, sooner if needed. Orders: Orders XR shoulder RT min 2V 03/14/25 M25.511 - Pain in right shoulder Coding Level of Care Code Global (48444) Diagnoses Status post reverse total arthroplasty of right shoulder Z96.611
== END 2025-03-14 15:51 | disposition home or self-care (01) ==
LOC: HO.HOS 14:40
PROVIDERS: PCP Internal Medicine; Visit Provider Physician Assistant
DX: Z96.611 Presence of right artificial shoulder joint (principal)
CPT/HCPCS: 99024

== ENCOUNTER → 2025-03-14 14:41 | Outpatient (BNV) | payer MEDICARE, SELFPAY | PROVIDERS: Visit Provider Radiology Diagnostic Radiology | DX: M25.511 Pain in right shoulder (principal) | CPT/HCPCS: 73030 ==

== ENCOUNTER 2025-04-04 14:56 | Outpatient (AMB) | payer MEDICARE, SELFPAY ==
--- OUTSIDE RECORDS SUMMARY | 2025-02-28 09:57 | XMS_ITS ---
Author Organization Richard Castro MD Address [address] [place] [address] [phone] Care Team Providers Care Deputy Register Of Deeds Name Role Phone Richard Castro Primary Care Provider REASON FOR VISIT discharge Encounters Encounter Location Date Provider Diagnosis Richard Castro MD 10 [facility] [address] [place] [phone] 02/28/2025 Richard Castro Plan Of Treatment Next Appt Details Provider Name:Richard escamilla, 07/05/2025 07:30:00 AM, [address] [place] [address], [address], [phone], Provider Name:Richard escamilla, 07/18/2025 01:00:00 PM, [address] [place] [address], [address], [phone], Progress Notes * Joselito HURD ADOB:[birth year] (75 yo M)Acc No.[id number]:02/28/2025 Patient: Joselito HANNA :1950 A ge:75 Y S ex:Male Address:[address] [place] [address] * true * Date: Generated for Per deleon/Amandeep/Malindaitting on: 0 04/04/2025 03:00 PM EDT
--- NOTE | 2025-04-04 15:00 | MHC.OFFVIS ---
Intake Visit Reasons: PO: r RTSA w/NE 02/26/25 Intake Note: Joselito is a 75 year old left hand dominant male who presents today for a post operative appointment s/p Right Reverse TSA, DOS: 02/26/25. Patient reports that he is doing well with no concerns Allergies No Known Allergies (No Known Allergies*) Allergy (Verified 03/14/25 15:04) HPI HPI PO: r RTSA w/NE 02/26/25: Details: Joselito is a 75 year old left hand dominant male who presents today for a post operative appointment s/p Right Reverse TSA, DOS: 02/26/25. Patient reports that he is doing well with no concerns. He is in PT. [facility] Medical History Wears hearing aid in both ears [place] (hard of hearing) History of cardioversion BPH (benign prostatic hyperplasia) Hx MRSA infection (07/2018) Tremor Non-Hodgkin lymphoma Afib Hydronephrosis with renal and ureteral calculous obstruction (2019) Acute UTI Sepsis Calculus, renal Hydronephrosis Surgical History S/P right rotator cuff repair Hx of colonoscopy Hx of repair of right rotator cuff (~2014) History of left inguinal hernia repair (~2020) History of right inguinal hernia repair (08/28/18) History of bilateral inguinal hernia repair (06/28/17) History of arthroscopy of left knee Family History Father Throat cancer Mother Melanoma Leukemia Social History Household Members: Spouse and Children Housing: House Are you a primary health care analyst to a significant other at home: No Do you presently have visiting nurse or other home services: No 75 years or older and lives alone: No Comment: hematoma right thigh, resolved no fracture with 12/2024 fall, no head strike Patient Tobacco Use Status: Former Tobacco user Tobacco use type: Cigarette service: Yes Current occupational status: retired Physical Exam Extrem Other: Inc c/d/i SILT Deltoid intact Assessment & Plan Assessment & Plan (1) Status post reverse total arthroplasty of right shoulder: Code(s): Z96.611 - Presence of right artificial shoulder joint Category: Surgical Plan: Joselito is doing well. Still stiff with shoulder recruitment persisting. Continuing PT. No resistance. F/u 6 weeks Coding Level of Care Code Global (12973) Diagnoses Status post reverse total arthroplasty of right shoulder Z96.611
--- OUTSIDE RECORDS SUMMARY | 2025-04-04 15:00 | XMS_ITS | Clinical Summary ---
Author Organization [facility] Address [address] [address] Phone Care Team Providers Care Guest Relations Executive Name Role Phone Richard Castro MD Primary Care Provider Allergies No known active allergies Medications UBIDECARENONE (COENZYME Q10 ORAL) Active propranoloL (INDERAL LA) 80 mg 24 hr capsule Take 80 mg by mouth daily. Doesn't take regularly - for tremors 3 Active tamsulosin (FLOMAX) 0.4 mg Cap 0.4 mg daily. 3 Active CARTIA XT 120 mg 24 hr capsuleIndication s:Persistent atrial fibrillation TAKE ONE CAPSULE BY MOUTH ONCE DAILY. (IC CARDIZEM) 90 capsule 3 5 Active flecainide (TAMBOCOR) 150 MG tabletIndications :Paroxysmal atrial fibrillation TAKE ONE TABLET BY MOUTH TWICE DAILY (IC TAMBOCOR) 180 tablet 3 5 Active rivaroxaban (XARELTO) 20 mg Tab Take 1 tablet (20 mg total) by mouth daily with dinner. 90 tablet 3 5 Active Active Problems Problem Noted Date Diagnosed Date Preop examination 01/01/2025 Assessment & Plan (01/01/2025 12:32 PM EDT): EKG sinus bradycardia at 55 bpm with right bundle branch block and isolated PACs unchanged from prior EKGs. Patient is asymptomatic on exam today no symptoms concerning for angina. Euvolemic on exam no symptoms concerning for heart failure exacerbation. He may hold his Xarelto 48 hours before surgery. No additional cardiac testing prior to shoulder surgery is recommended. Atrial fibrillation 01/01/2018 Assessment & Plan (01/01/2025 12:33 PM EDT): sinus bradycardia at 55 bpm with right bundle branch block and isolated PACs unchanged from prior EKGs.Patient is asymptomatic on exam today no symptoms concerning for atrial fibrillation. He currently is not on anticoagulation as when he saw Dr. Stapleton his CHADS2 score was a 1 now that he has turned 74 his chads score is a 2. I have went over anticoagulation and A-fib education with patient with good understanding. Patient is going to start on Xarelto 20 mg daily. I have requested recent labs from PCP. Patient is requesting Xarelto as Eliquis was really expensive for him in the past. Patient will continue on flecainide 150 mg twice a day and diltiazem 120mg daily. Assessment & Plan (04/03/2024 11:34 AM EDT): He reports on occasion having some atrial fibrillation where he feels palpitations but this does not last very long. He is on diltiazem 120 mg daily, flecainide 150 mg twice daily and propranolol 80 mg daily though he is on propranolol for tremors and not cardiac reasons. He is chads 2 vas score was noted to be a [address] Stapleton had recommended because he was a low risk that he could come off of his Eliquis. He has now reached the age of 74 and now has another point to his [id number] score now making him by 2 which gives him a 2.2% chance of having a stroke and greater than 90,000 patients in a 2.9% risk of stroke/TIA/systemic embolism. For now he will continue his medication without change and we will consider restarting his Eliquis however he states that this is very expensive for him. Mitral regurgitation 01/01/2018 Assessment & Plan (01/01/2025 12:33 PM EDT): Patient is euvolemic on exam today no symptoms concerning for heart failure exacerbation. He still has not got an updated echocardiogram. I have told him to reschedule this-seems like it keeps getting pushed back. Pressure very well-controlled 120/82. I educated patient on routine exercise, low-salt heart healthy diet. We will continue to optimize cardiovascular risk factors. Assessment & Plan (04/03/2024 11:35 AM EDT): Dr. Stapleton had recommended having an echocardiogram prior to his next visit however it does not look like that took place. I have ordered an echocardiogram to be completed sooner than his next appointment and we will call him if there is anything that is significantly abnormal from his previous echocardiogram. He denies any symptoms for having mitral regurgitation at this time. Blood pressure appears to be well-controlled and was 116/80 after being rechecked initial blood pressure reading of 134/90. He remains on his medication without change. He is encouraged follow heart healthy diet: Low-sodium and to continue exercising. Encounters Date Type Department Care Team Description 01/30/2025 Telephone [facility] [address] [place] [address] [address]rd Floor, [address] [place], [place] [phone] Kyle Montanez MD from Last 3 Months Social History Tobacco Use Types Packs/Day Years Used Date Smoking Tobacco: Former Cigarettes 0.3 10 1 960 - 1970 Smokeless Tobacco: Never Tobacco Cessation:Counseling Given: Not Answered Alcohol Use Standard Drinks/Week Comments Not Currently 0 (1 standard drink = 0.6 oz pur e alcohol) 1-2 drinks a month Education Answer Date Recorded Are you interested in more education? Not on dg e 12/10/2022 Are you concerned about learning? Not on file 12/10/2022 No 12/10/2022 No 12/10/2022 Digital Access Answer Date Recorded No 01/08/2023 No 01/08/2023 Reliable internet access at home? Not on file 01/08/2023 Device with a working camera? Not on file Sex and Gender Information Value Date Recorded Sex Assigned at Not on file Legal Sex Male 10:37 PM EDT Gender Identity Not on file Sexual Orientation Not on file Last Filed Vital Signs Vital Sign Reading Time Taken Comments Blood Pressure 120/82 01/01/2025 11:00 AM EDT Pulse 51 01/01/2025 11:00 AM EDT Temperature 35.9 C (96.6 F) 09/15/2022 8:15 AM EST Respiratory Rate 16 09/15/2022 9:50 AM EST Oxygen Saturation 99% 01/01/2025 11:00 AM EDT Inhaled Oxygen Concentration - - Weight 89.8 kg (198 lb) 01/01/2025 11:00 AM EDT Height 180.3 cm (5' 10.98 ) 01/01/2025 11:00 AM EDT Body Mass Index 27.63 01/01/2025 11:00 AM EDT Plan of Treatment Upcoming Encounters Date Type Department Care Team (Late st Contact Info) Description 04/03/2024 Procedure Pass Echo Lab [address] [place] [address] 05/01/2025 10:00 AM EDT Office Visit [facility] [address] [place] [address], [address] [place] [address] Kyle Montanez MD [address] [place] [address] 06/03/2025 10:00 AM EDT Appointment [facility] [place] [address] Sandra Hull, JUAN [address] [place] [address], [address] [place] [address] 07/03/2025 1:00 PM EST Office Visit [facility] [address] [facility], [address] [place] [address] Jeniffer Joseph DNP [address] [place] [phone] Health Maintenance Due Date Last Done Comments Adult Td,Tdap Booster 1950 LIPID PANEL 1949 DEPRESSION SCREENING 1961 HEPATITIS C SCREENING 1967 ZOSTER VACCINES (1 of 2) 1999 CREATININE LEVEL 09/10/2023 09/10/2022 RSV VACCINE (1 - 1-dose 75+ series) 02/25/2024 COVID-19 VACCINE (4 - 2023-2 5 season) 2024 07/20/2021, 11/12/2020, 10/22/2020 PNEUMOCOCCAL VACCINES (50+ years) Completed 08/20/2021, 05/27/2017, 01/28/2016 SMOKING STATUS SCREENING (On ce After 26 Yrs) Completed 01/01/2025 HEPATITIS A VACCINES Aged Out No long er eligible based on patient's age to complete this topic HIB VACCINES Aged Out No longer eligi ble based on patient's age to complete this topic MENINGOCOCCAL VACCINES (ACWY) Aged Out No longer eligible based on patient's age to complete this topic MENINGOCOCCAL VACCINES (B) Aged Out N o longer eligible based on patient's age to complete this topic Medical Devices Implanted Type Area Mill Tender Washing Device Identifier Shelf Expiration Date Model / Serial / Lot Mesh Mesh Pin Pin Right: Arm Procedures Procedure Name Priority Date/Time Associated Diagnosis Comments BASIC METABOLIC PANEL Routine 09/10/2022 11:13 AM EST Persistent atrial fibrillation from Last 3 Months or Most Recently Relevant to Health Maintenance Results * (ABNORMAL) Basic metabolic panel (09/10/2022 11:13 AM EST) SODIUM 138 133 - 146 mmol/L [facility] CHLORIDE 102 96 - 108 mmol/L [facility] POTASSIUM 4.8 3.3 - 5.1 mmol/L [facility] CO2 27 21 - 35 mmol/L [facility] BUN 21(H) 6 - 19 mg/dL [facility] CREATININE 1.10 0.5 - 1.5 mg/dL [facility] GLUCOSE 93 70 - 99 mg/dL [facility] CALCIUM 9.2 8.4 - 10.3 mg/dL [facility] EGFR 71 >59 mL/min/1.7 3m2 [facility] Comment:Estimated glomerular filtration rate calculated using the CKD-EPI refit equation. ANION GAP 14 10 - 20 mmol/L [facility] Blood 09/10/2022 11:1 3 AM EST 09/10/2022 4:07 PM EST us Edenilson Stapleton MD LAB BLOOD ORDERABLES Final R esult [address] [address] from Last 3 Months or Most Recently Relevant to Health Maintenance Insurance [employer] MEDEX SUPPLEMENT MEDICARE PART A & B [employer] MEDEX SUPPLEMENT MEDICARE PART A & B [employer] MEDEX SUPPLEMENT MEDICARE PART A & B [employer] MEDEX SUPPLEMENT MEDICARE PART A & [place] [address] [place] [address] MEDEX SUPPLEMENT MEDICARE PART A & B [employer] MEDEX SUPPLEMENT MEDICARE PART A & B Member Subscriber Plan / Payer (Ef fective 2014-Present) Name:Roosevelt Hurd Member ID:[id number] Relation to Subscriber:Self Name:Roosevelt Hurd Subscriber ID:[id number] Payer ID:[id number] Group ID:Not on file Type:Medicare [facility]: [facility] [address] [employer] MEDEX SUPPLEMENT MEDICARE PART A & B [employer] MEDEX SUPPLEMENT MEDICARE PART A & B [employer] MEDEX SUPPLEMENT MEDICARE PART A & B Care Teams Guest Relations Executive Relationship Specialty Start Date End Date Richard Castro MD [address] [place] [address] Dr Chaudhary, [place] [address] PCP - General 06/02/17 Additional Source Comments The information contained in this document represents components of the legal health record. It is not the complete legal health record.[facility]
--- OUTSIDE RECORDS SUMMARY | 2025-04-04 15:01 | XMS_ITS | Patient Health Record ---
Author Organization [facility] Address [address] [place] [address] Care Team Providers Care Forest Fire Management Officer Name Role Phone Richard Castro MD Primary [...] Problem Status W/U Status Risk Notes Problem [id number] Hemorrhoids (455.6) Active confirmed Problem [id number] Colon cancer screening (V76.51) Active confirmed Problem [id number] Abnormal findings in stool (792.1) Active confirmed Plan Of Treatment Future Test Test Name Order Date COLONOSCOPY 07/26/2014 Insurance Providers Payer Name Payer Address Payer Phone Subscriber Number Group Number Insured Name Patient Relationship to Insured Coverage Start Date Coverage End Date [facility] [address] [address] [place] [address] [id number] ROOSEVELT SAMUELS Self - patient is the insured MEDICARE OF [place] [address] [facility] [place] [address] [id number] ROOSEVELT SAMUELS Self - patient is the insured Medical (General) History Medical History History ICD Code lymphoma Atrial fibrillation mitral valve prolapse Surgical History Surgery Date(Month/Year) lymphectomy 1 node under arm 2010
== END 2025-04-04 15:25 | disposition home or self-care (01) ==
LOC: HO.HOS 14:57
PROVIDERS: PCP Internal Medicine; Visit Provider Orthopaedic Surgery
DX: Z96.611 Presence of right artificial shoulder joint (principal)
CPT/HCPCS: 99024

== ENCOUNTER → 2025-04-04 14:56 | Outpatient (BNVA) | payer MEDICARE, SELFPAY | PROVIDERS: PCP Internal Medicine; Visit Provider Orthopaedic Surgery | DX: Z47.1 Aftercare following joint replacement surgery (principal); Z96.611 Presence of right artificial shoulder joint | CPT/HCPCS: 99212 ==

== ENCOUNTER 2025-05-16 11:14 | Outpatient (AMB) | payer MEDICARE, SELFPAY ==
--- OUTSIDE RECORDS SUMMARY | 2024-07-03 04:30 | XMS_ITS ---
Author Organization Richard Castro MD Address [address] [place], [place] [phone] Care Team Providers Care Clinical Faculty Name Role Phone Richard Castro Primary Care Provider [phone] Results Component Value Reference Range Notes Complete Blood Count Auto Di ff Reviewed date:07/03/2024 08:00:30 PM Interpretation: Performing Lab:[facility], [address] [place] [phone] Notes/Report: White Blood Count 7.5 4.8-10.8 X10*3/uL [...] NRBC Abs Auto 0.000 0.0-0.012 X10*3/uL Comprehensive [place]. Panel Fa st Reviewed date:07/03/2024 08:16:51 PM Interpretation: Performing Lab:[facility], [address] [place] [phone] Notes/Report: Sodium 138 135-145 mmol/L Potassium 4.1 [...] Panel Reviewed date:07/03/2024 08:01:49 PM Interpretation: Performing Lab:[facility], [address] [place] [phone] Notes/Report: Triglycerides 98 <150 mg/dL Desirable Triglyceride: [...] date:07/17/2024 04:52:07 PM Interpretation:see back 07-17-2024 Performing Lab:[facility], [address] [place] [phone] Notes/Report: PSA,Total (Free>4and<10) 5.94 0.00-4.00 ng/mL PSA methodology: Burgess Alinity i Chemiluminescent Microparticle Immunoassay (CMIA) UA ClnCatch+Micro w/rflx Cul t Reviewed date:07/03/2024 08:03:57 PM Interpretation: Performing Lab:[facility], [address] [place] [phone] Notes/Report: Urine, Clean Catch Color Urine Yellow Appearance Urine Clear PH 5.5 5.0-9.0 Glucose Urine UA Negative Negative mg/dL Urine Blood Negative Negative Specific [place] - Urine 1.015 1.005-1.025 Urine Protein Negative [...] Date Provider Diagnosis Richard Castro MD [address] [place], [place] [phone] 07/03/2024 Richard Castro Elevated PSA R97.20 ; Encounter for immunization Z23 and Pure hypercholesterolemia E78.00 Assessments Encounter Date Diagnosis (ICD Code) Assessment Notes Treatment Notes Treatment Clinical Notes Section Notes 07/03/2024 Elevated PSA (ICD-10 - R97.20) 07/03/2024 Encounter for immunization (ICD-10 - Z23) 07/03/2024 Pure hypercholesterolemia (ICD-10 - E78.00) Plan Of Treatment Next Appt Details Provider Name:Richard Chatman ier, 07/05/2025 07:30:00 AM, [address] [place] [address], [address], [phone], Provider Name:Richard Garcia Grettaaneudy ier, 07/18/2025 01:00:00 PM, [address] [place] [address], [place] [address], [place], [place], [phone], Progress Notes * Joselito HURD ADOB:[birth year] (75 yo M)Acc No.[id number]:07/03/2024 Progress Note Patient: Joselito HANNA Provider: Del Castro MD :1950 A ge:74 Y S ex:Male Date:07/03/2024 Address:[address] [place] [address] Subjective: * Chief Complaints: * 1 . [...] - 07/03/2024 08:30 AM) L AB: Comprehensive [place]. Panel Fast (Collection Date & Time - [...] FLU VAC NO FEE SCHED SAME DAY, [address] VENIPUNCT, ROUTINE* * * The named appointment provid er may or may not be the originator of this progress note, and it is not deemed complete until electronically signed by the appointment provider. Sign off status: Pending * Provider: Del Castro MD Date: 09/02/2023 Generated for Per deleon/Amandeep/Maninder on: 01:09 PM EDT
--- OUTSIDE RECORDS SUMMARY | 2024-07-17 09:30 | XMS_ITS ---
Author Organization Richard Castro MD Address [address] [place] [phone] Care Team Providers Care Facilities Custodian Name Role Phone Richard Castro Primary Care Provider [phone] Allergies No Known Allergies Results Component Value [...] Date Provider Diagnosis Richard Castro MD [address] [place] [address] [address] [place], [place] [phone] 07/17/2024 Richard Castro Essential tremor G25 .0 [...] or maybe wait/ get last note from [facility] 07/17/2024 Colon cancer screeni ng (ICD-10 [...] or maybe wait/ get last note from [facility] Colon cancer screening guaiac negative Depression screening negative screen Next Appt Details Follow Up: 1 Year, Reason: Provider Name:Richard escamilla, 07/05/2025 07:30:00 AM, [address] [place] [address], [address] [place] [address], [phone], Provider Name:Richard escamilla, 07/18/2025 01:00:00 PM, [address] [place] [address], [place] [address], [place], [place], [phone], Progress Notes * Joselito HURD ADOB:[birth year] (74 yo M)Acc No.[id number]:07/17/2024 Patient: Joselito Garcia Provider: Del Castro MD :1950 A ge:74 Y S ex:Male Date:07/17/2024 [place] [address] Subjective: * Chief Complaints: * R eview [...] 01-23-24. * P ast Orders: L ab:Comprehensive [place]. Panel Fast (Order Date - 07/03/2024) (Collection [...] mg/dL Urine Blood Negative Negative - Specific [place] - Urine 1.015 1.005-1.025 - Urine Protein [...] or maybe wait/ get last note from [facility] 3. C olon cancer screening L AB: Occult Blood, Stool, Guaiac N egative Value Reference Range O ccult Blood, Stool, Guaiac Neg Notes: guaiac negative??4.?Depression screening? Notes: negative screen?? * Procedure Codes: 8 2270 TEST FOR BLOOD, FECES * Follow Up: 1 Year * * Sign off status: Completed true * Provider: Del Castro MD Date: 09/17/2023 Generated for Per deleon/Amandeep/Maninder on: 01:09 PM EDT History and Physical Notes * HPI [...]
--- OUTSIDE RECORDS SUMMARY | 2024-12-24 07:00 | XMS_ITS ---
Author Organization Richard Castro MD Address [address] [place], [place] [phone] Care Team Providers Care Hat Finisher Name Role Phone Richard Castro Primary Care Provider Allergies No Known Allergies Results Component Value Reference Range Notes Complete Blood Count Auto Di ff Reviewed date:12/24/2024 05:16:55 PM Interpretation: Performing Lab:[facility], [address] [place] [phone] Notes/Report: White Blood Count 8.2 4.8-10.8 X10*3/uL [...] Panel Reviewed date:12/24/2024 05:16:08 PM Interpretation: Performing Lab:[facility], [address] [place] [phone] Notes/Report: Sodium 137 135-145 mmol/L Potassium 4.2 [...] 02-12-25 needs CBC BMP EKG going to Nurses Assistant 01-01-25 to be cleared, Patientfound a mass [...] Location Date Provider Diagnosis Richard Castro MD [address] [place] [address] [address] [place], [place] [phone] 12/24/2024 Richard Castro Mass in neck R22.1 ; Right shoulder pain, unspecified chronicity M25.511 and Preop examination Z01.818 Assessments Encounter Date Diagnosis (ICD Code) Assessment Notes Treatment Notes Treatment Clinical Notes Section Notes 12/24/2024 Mass in neck (ICD-10 - R22.1) THE ORDER WAS FAXED TO [facility], pending diagnsotic testing 12/24/2024 Right shoulder pain, unspecified chronicity (ICD-10 - M25.511) 12/24/2024 Preop examination (ICD-10 - Z01.818) at this point i don't find anything medically to prevent his shoulder surgery if cleared by his tours hostess Plan Of Treatment Treatment Notes Assessment Notes Mass in neck THE ORDER WAS FAXED TO [facility], pending diagnsotic testing Preop examination at this point i don' t find anything medically to prevent his shoulder surgery if cleared by his tours hostess Pending Test Test Name Order Date US soft tiss head and/or neck 12/24/2024 Next Appt Details Follow Up: after us, Reason: Provider Name:Richard escamilla, 07/05/2025 07:30:00 AM, [address] [place] [address], [address], [place], [phone], Provider Name:Richard saldivarr, 07/18/2025 01:00:00 PM, [address] [place] [address], [address], [place], [place], [phone], Progress Notes * Joselito HURD ADOB:[birth year] (74 yo M)Acc No.[id number]:12/24/2024 Patient: Joselito HANNA Provider: Del Castor MD :1950 A ge:74 Y S ex:Male Date:12/24/2024 Address:[address] [place] [address] Subjective: * Chief Complaints: * r shoulder DR Thomas 02-12-25 needs CBC BMP EKG going to Nurses Assistant 01-01-25 to be clearedPatient found a mass [...] his right side. went to Urgent on [address] H ave you had two or [...] his shoulder surgery if cleared by his tours hostess * Procedure Codes: 3 6415 VENIPUNCT, ROUTINE* * Follow Up: a fter us * * Sign off status: Completed true * Provider: Del Castro MD Date: 0 12/24/2024 Generated for Per deleon/Amandeep/Maninder on: 1 01:09 PM EDT History and Physical Notes [...] his right side. went to Urgent on [address]. Have you had two or more [...]
--- OUTSIDE RECORDS SUMMARY | 2025-01-15 05:25 | XMS_ITS ---
Author Organization Richard Castro MD Address [address] [place] [phone] Care Team Providers Care Product Manager Name Role Phone Richard Castro Primary Care Provider REASON FOR VISIT FYI US neck cancelled Encounters Encounter Location Date Provider Diagnosis Richard Castro MD 10 [facility] [address] [place] [phone] 01/15/2025 Richard Castro Plan Of Treatment Next Appt Details Provider Name:Richard Chatman ier, 07/05/2025 07:30:00 AM, [address] [place] [address], [address] [place] [address], [phone], Provider Name:Richard Chatman iemelia, 07/18/2025 01:00:00 PM, [address] [place] [address], [address] [place] [address], [phone], Progress Notes * Joselito HURD ADOB:[birth year] (74 yo M)Acc No.[id number]:01/15/2025 Patient: Jose BELTRANJoselito LEWIS A :1950 A ge:74 Y S ex:Male Address:[address] [place] [address] * true * Date: Generated for Per deleon/Amandeep/Kendricksmitting on: 01:08 PM EDT
--- OUTSIDE RECORDS SUMMARY | 2025-02-28 09:57 | XMS_ITS ---
Author Organization Richard Castro MD Address [address] [place] [address] [phone] Care Team Providers Care Retention Manager Name Role Phone Richard Castro Primary Care Provider REASON FOR VISIT discharge Encounters Encounter Location Date Provider Diagnosis Richard Castro MD 10 [facility] [address] [place] [phone] 02/28/2025 Richard Castro Plan Of Treatment Next Appt Details Provider Name:Richard escamilla, 07/05/2025 07:30:00 AM, [address] [place] [address], [address], [phone], Provider Name:Richard escamilla, 07/18/2025 01:00:00 PM, [address] [place] [address], [address], [phone], Progress Notes * Joselito HURD ADOB:[birth year] (75 yo M)Acc No.[id number]:02/28/2025 Patient: Joselito HANNA :1950 A ge:75 Y S ex:Male Address:[address] [place] [address] * true * Date: Generated for Per deleon/Amandeep/Kendricksmitting on: 01:08 PM EDT
--- OUTSIDE RECORDS SUMMARY | 2025-05-13 16:00 | XMS_ITS | Encounter Summary ---
Author Organization [facility] Address [address] [facility] [address] [place] [address] Phone Care Team Providers Care Hot Pond Operator Name Role Phone Richard Castro MD Primary Care Provider Reason for Referral * MRI/CAT Scan - Authorized Specialty Diagnoses / Procedures Referred By Darnell t Referred To Contact Radiology Diagnoses Other chest pain Procedures NC Myocardial Perfusion Pharmacologic Stress Multiple Kyle Montanez MD [address] [place] [address] Phone: tel: fax: mailto:[email or web address] Referral ID Status Reason Start Date Expiration Date V isits Requested Visits Authorized [id number] Authorized 05/13/2025 1 1 Encounter Details Date Type Department Care Team (Latest Contact Info) Description 05/13/2025 4:00 PM EDT Office Visit [facility] [address] [place] [address] 3rd Floor, [address] [place] [address] Kyle Montanez MD [address] [place] [phone] [email or web address] Other chest pain (Primary Dx); Paroxysmal atrial fibrillation; Cardiomyopathy, unspecified type Social History Tobacco Use Types Packs/Day Years [...] on file Sexual Orientation Not on file documented as of this encounter Last Filed Vital Signs Vital Sign Reading Time Taken Comments Blood Pressure 110/68 05/13/2025 4:16 PM EDT Pulse 63 05/13/2025 4:16 PM EDT Temperature - - Respiratory Rate - - Oxygen Saturation 97% 05/13/2025 4:16 PM EDT Inhaled Oxygen Concentration - - Weight 90.7 kg (200 lb) 05/13/2025 4:16 PM EDT Height 180.3 cm (5' 10.98 ) 05/13/2025 4:16 PM E DT Body Mass Index 27.91 05/13/2025 4:16 PM EDT documented in this encounter Progress Notes * Kyle Montanez MD - 05/13/2025 4:00 PM EDT [facility] Cardiology Consultation Date: 05/13/2025 Referring Primary Care Physician: Richard Castro MD Primary Customizer: HEIKE Reason for Initial Consultation: Paroxysmal atrial fibrillation. History of Presenting Illness: Joselito Hurd is a 75 y.o. male with past medical history of non-Hodgkin lymphoma, mitral valve prolapse, aortic dilation, atrial fibrillation status post cardioversion presenting for follow-up. Patient is accompanied by family. Patient states feeling well. Patient denies any current chest pain, shortness of breath, abdominal pain, nausea, vomiting, palpitations, dizziness, syncope or other concerning symptoms. Past Medical History: Past Medical History: Diagnosis Date A-fib Aortic dilatation borderline per cardiac note 08/26/2022 Enlarged prostate Mitral regurgitation Mitral valve prolapse Non Hodgkin's lymphoma 2010 stage 3, treated with chemo Tremor Past Surgical History: Past Surgical History: Procedure Laterality Date arm surgery Right HERNIA REPAIR x4 KNEE SURGERY lymph node removal right arm Current Medications: No outpatient medications have been marked as taking for the 05/13/25 encounter (Office Visit) with Kyle Montanez MD. Allergies: No Known Allergies Family History: No family history on file. Social History: Social History Social History Narrative Not on file Social History Tobacco Use Smoking status: Former Current packs/day: 0.00 Average packs/day: 0.3 packs/day for 10.0 years (2.5 ttl pk-yrs) Types: Cigarettes Start date: 1959 Quit date: 1969 Years since quittin.7 Smokeless tobacco: Never Substance Use Topics Alcohol use: Not Currently Comment: 1-2 drinks a month Physical Examination: Vital Signs: Vitals: 05/13/25 1616 BP: 110/68 Pulse: 63 SpO2: 97% Weight: 90.7 kg (200 lb) Height: 180.3 cm (5' 10.98 ) BMI: Body mass index is 27.91 kg/m??. Cardiovascular: Normal PMI, no thrills/heave. Normal S1 and S2. No added murmurs, gallops, or rubs. General Appearance: No acute distress, well-nourished. Neurologic: Alert, awake, and oriented, normal affect. Neck: No JVD or hepatojugular reflux. No enlargement of the thyroid. Carotid pulse 2+ bilaterally. No carotid bruits. Respiratory: Appropriate respiratory effort. Lungs clear to auscultation bilaterally, no wheezing/rhonchi/rales. Musculoskeletal: Normal curvature of the spine without kyphosis or scoliosis. Normal gait. Extremities/Skin: Warm and well perfused peripherally, no edema. Labs: No results found for: LDL No results found for: HDL No results found for: CHOL No results found for: LDLCALC No results found for: TRIG No results found for: CHOLHDL WBC Date Value Ref Range Status 09/10/2022 7.22 4.00 - 11.00 K/uL Final HGB Date Value Ref Range Status 09/10/2022 14.0 12.4 - 17.3 g/dL Final HCT Date Value Ref Range Status 09/10/2022 42.0 37.0 - 51.0 % Final Lab Results Component Value Date NA 138 09/10/2022 K 4.8 09/10/2022 CL 102 09/10/2022 CO2 27 09/10/2022 BUN 21 (H) 09/10/2022 CRE 1.10 09/10/2022 GLU 93 09/10/2022 CA 9.2 09/10/2022 GFR 71 09/10/2022 ANION 14 09/10/2022 Assessment: 75 y.o. male with past medical history of non-Hodgkin lymphoma, mitral valve prolapse, aortic dilation, atrial fibrillation status post cardioversion presenting for follow-up. Plan: Atrial fibrillation/aortic dilation - Patient asymptomatic - Previous ECG-sinus rhythm, first-degree AV block, right bundle branch block - In sinus rhythm on examination - On flecainide 150 mg twice daily - On propranolol 80 mg daily - Patient to monitor and inform us of any recurrence of symptoms or worsening of symptoms - Continue with Xarelto 20 mg daily - Will order a nuclear stress test given on flecainide along with 2D echo given aortic dilation - Follow-up in 4 months time for stress test results along with echo results of aortic dilation Follow-up: 4 months with Roxy Electronically signed by: Kyle Montanze MD [facility] 05/13/2025 documented in this encounter Plan of Treatment Upcoming Encounters Date Type Department Care Team (Late st Contact Info) Description 04/03/2024 Procedure Pass Echo Lab [place] [address] 05/17/2025 1:20 PM EDT Office Visit [facility] [address] Floor, [address] [place] [address] Dianelys Fonseca MD [address] [place] [address] 06/03/2025 10:00 AM EDT Appointment Echo [place] [address] Sandra Hull, JUAN [address] [place] [address], [address] [address] 06/07/2025 11:30 AM EDT Appointment Non-Invasive Cardiology [address] [place] [address] Kyle Montanez MD [address] [place] [address] 07/03/2025 1:00 PM EST Office Visit [facility] [address] [place] [address], [address] [address] Jeniffer Joseph, JUAN [address] [place] [address] 09/13/2025 10:00 AM EST Office Visit [facility] [address], [address] [address] Roxy Burnette DNP [address] [place] [address], [address] [address] Scheduled Orders Name Type Priority Associated Diagnoses Order Schedule NC Myocardial Perfusion Pharmacologic Stress Multiple Nuclear Cardiology Routine Other chest pain Expected: 05/13/2025, Expires: 08/12/2025 documented as of this encounter Visit Diagnoses Diagnosis Other chest pain- Primary Paroxysmal atrial fibrillation Atrial fibrillation Cardiomyopathy, unspecified type documented in this encounter Care Teams Hot Pond Operator Relationship Specialty Start Date End Date Richard Castro MD [address] [place] [address] [place] [address] PCP - General 06/02/17 documented as of this encounter Additional Source Comments The information contained in this document represents components of the legal health record. It is not the complete legal health record.[facility]
--- NOTE | 2025-05-16 11:23 | A.OFFVIS_ITS ---
Intake Visit Reasons: PO: r RTSA w/NE 02/26/25 Intake Note: Joselito is a 75 year old left hand dominant male who presents today for a post operative appointment about 3 months s/p Right Reverse TSA 02/26/25. Patient reports he is doing well, states no concerns today. He continues to work with physical therapy. Allergies No Known Allergies (No Known Allergies*) Allergy (Verified 05/16/25 11:23) HPI HPI PO: r RTSA w/NE 02/26/25: Details: Three months status post reverse total shoulder arthroplasty. He is doing very well. He has no pain. He has good functional motion. He is still feels a little limited in internal rotation. [facility] Medical History Wears hearing aid in both ears [place] (hard of hearing) History of cardioversion BPH (benign prostatic hyperplasia) Hx MRSA infection (07/2018) Tremor Non-Hodgkin lymphoma Afib Hydronephrosis with renal and ureteral calculous obstruction (2019) Acute UTI Sepsis Calculus, renal Hydronephrosis Surgical History S/P right rotator cuff repair Hx of colonoscopy Hx of repair of right rotator cuff (~2014) History of left inguinal hernia repair (~2020) History of right inguinal hernia repair (08/28/18) History of bilateral inguinal hernia repair (06/28/17) History of arthroscopy of left knee Family History Father Throat cancer Mother Melanoma Leukemia Social History Household Members: Spouse and Children Housing: House Are you a primary health care consultant to a significant other at home: No Do you presently have visiting nurse or other home services: No 75 years or older and lives alone: No Comment: hematoma right thigh, resolved no fracture with 12/2024 fall, no head strike Patient Tobacco Use Status: Former Tobacco user Tobacco use type: Cigarette service: Yes Current occupational status: retired Physical Exam Extrem Other: //hip pocket Incision clean dry and intact Assessment & Plan Assessment & Plan (1) Status post reverse total arthroplasty of right shoulder: Code(s): Z96.611 - Presence of right artificial shoulder joint Category: Surgical Plan: Joselito is doing very well status post right shoulder replacement. His motion continues to improve and he is benefitting from physical therapy. He should continue to use his shoulder. I cautioned him against heavy lifting. See me back as needed or at the 1 year time point. Coding Level of Care Code Global (62144) Diagnoses Status post reverse total arthroplasty of right shoulder Z96.611
--- OUTSIDE RECORDS SUMMARY | 2025-05-16 13:08 | XMS_ITS | Clinical Summary ---
Author Organization [facility] Address [address] [address] Phone Care Team Providers Care Supercharger Repair Supervisor Name Role Phone Richard Castro MD Primary [...] and now has another point to his [id number] score now making him by 2 which [...] Encounters Date Type Department Care Team Description 05/13/2025 4:00 PM EDT Office Visit [facility] [address] [place] [address] 3rd Floor, [address] [place] [address] Kyle Montanez MD Other chest pain (Primary Dx); Paroxysmal atrial fibrillation; Cardiomyopathy, unspecified type from Last 3 Months Social History Tobacco [...] Pulse 63 05/13/2025 4:16 PM EDT Temperature 35.9 C (96.6 F) 09/15/2022 8:15 AM EST Respiratory Rate 16 09/15/2022 9:50 AM EST Oxygen Saturation 97% 05/13/2025 4:16 PM EDT Inhaled Oxygen Concentration - - Weight 90.7 kg (200 lb) 05/13/2025 4:16 PM EDT Height 180.3 cm (5' 10.98 ) 05/13/2025 4:16 PM E DT Body Mass Index 27.91 05/13/2025 4:16 PM EDT Plan of Treatment Upcoming Encounters Date Type Department Care Team (Late st Contact Info) Description 04/03/2024 Procedure Pass Echo Lab [address] [place] [address] 05/17/2025 1:20 PM EDT Office Visit [facility] [address] [place] [address], [address] [place] [address] Dianelys Fonseca MD [address] [place] [address] 06/03/2025 10:00 AM EDT Appointment Echo Lab [address] [place] [address] Sandra Hull DNP [address] [place] [address] 06/07/2025 11:30 AM EDT Appointment Non-Invasive Cardiology [address] [place] [address] [place] [address] Kyle Montanez MD [address] [place] [address] 07/03/2025 1:00 PM EST Office Visit [facility] [address] [place] [address], [address] [place] [address] Jeniffer Joseph DNP [address] [place] [address] 09/13/2025 10:00 AM EST Office Visit [facility] [address] [place] [address] 3rd Floor, [address] [place] [address] Vasile Roxy, JAUN [address] [facility], [address] [place] [address] [email or web address] Health Maintenance Due Date Last Done Comments Adult Td,Tdap Booster 1950 LIPID PANEL 1949 DEPRESSION SCREENING 1961 HEPATITIS C SCREENING 1967 ZOSTER VACCINES (1 of 2) 1999 CREATININE LEVEL 09/10/2023 09/10/2022 RSV VACCINE (1 - 1-dose 75+ series) 02/25/2024 INFLUENZA VACCINE (#1) 2025 2, 07/13/2021, 04/22/2020, Additional history exists COVID-19 VACCINE (2024- season) 2025 07/20/2021, 11/12/2020, 10/22/2020 PNEUMOCOCCAL VACCINES (50+ years) Completed 08/20/2021, 05/27/2017, 01/28/2016 SMOKING STATUS SCREENING (Once After 26 Yrs) Completed 05/13/2025 HEPATITIS A VACCINES Aged Out No long [...] this topic Medical Devices Implanted Type Area Exhaust Emissions Inspector Device Identifier Shelf Expiration Date Model / Serial / Lot Mesh Mesh Pin Pin Right: Arm Procedures Procedure Name Priority Date/Time Associated Diagnosis Comments BASIC METABOLIC PANEL Routine 09/10/2022 11:13 AM EST Persistent atrial fibrillation from Last 3 Months or Most Recently Relevant to Health Maintenance Results * (ABNORMAL) Basic metabolic panel (09/10/2022 11:13 AM EST) SODIUM 138 133 - 146 mmol/L [facility] CHLORIDE 102 96 - 108 mmol/L [facility] POTASSIUM 4.8 3.3 - 5.1 mmol/L [facility] CO2 27 21 - 35 mmol/L [facility] BUN 21(H) 6 - 19 mg/dL [facility] CREATININE 1.10 0.5 - 1.5 mg/dL [facility] GLUCOSE 93 70 - 99 mg/dL [facility] CALCIUM 9.2 8.4 - 10.3 mg/dL [facility] EGFR 71 >59 mL/min/1.7 3m2 [facility] Comment:Estimated glomerular filtration rate calculated using the CKD-EPI refit equation. ANION GAP 14 10 - 20 mmol/L [facility] Blood 09/10/2022 11:1 3 AM EST 09/10/2022 4:07 PM EST us Edenilson Stapleton MD LAB BLOOD ORDERABLES Final R esult [facility] [address] [place], [place] [id number] from Last 3 Months or Most Recently Relevant to Health Maintenance Insurance [employer]EX SUPPLEMENT MEDICARE PART A & B [employer] MEDEX SUPPLEMENT MEDICARE PART A & B [employer] MEDEX SUPPLEMENT MEDICARE PART A & B [employer] MEDEX SUPPLEMENT MEDICARE PART A & B [employer] MEDEX SUPPLEMENT MEDICARE PART A & B MEDEX SUPPLEMENT MEDICARE PART A & B [employer] MEDEX SUPPLEMENT MEDICARE PART A & B [employer] MEDEX SUPPLEMENT MEDICARE PART A & B [employer] MEDEX SUPPLEMENT MEDICARE PART A & B Care Teams Supercharger Repair Supervisor Relationship Specialty Start Date End Date Richard Castro MD [address] [place] [address] [place] [address] PCP - General 06/02/17 Additional Source Comments The information contained in this document represents components of the legal health record. It is not the complete legal health record.[facility]
--- OUTSIDE RECORDS SUMMARY | 2025-05-16 13:09 | XMS_ITS | Encounter Summary ---
Author Organization [facility] Address [address] [facility] [address] [place] [address] Phone Care Team Providers Care Ton Container Filler Name Role Phone Richard Castro MD Primary Care Provider Encounter Details Date Type Department Care Team (Late Contact Info) Description 08/26/2022 Procedure Pass [facility] Cardiovascular And Interventional Radiology [address] [place] [address] Social History Tobacco Use Types Packs/Day Years Used Date Smoking Tobacco: Former Cigarettes 0.3 10 1 960 - 1970 Smokeless Tobacco: Never Alcohol Use Standard Drinks/Week Comments Not Currently 0 (1 standard drink = 0.6 oz pur e alcohol) 1-2 drinks a month Sex and Gender Information Value Date Recorded Sex Assigned at Not on file Legal Sex Male 10:37 PM EDT Gender Identity Not on file Sexual Orientation Not on file documented as of this encounter Plan of Treatment Upcoming Encounters Date Type Department Care Team (Late Contact Info) Description 04/03/2024 Procedure Pass Echo Lab [place] [address] [place] [address] 05/17/2025 1:20 PM EDT Office Visit [facility] [address] Floor, [address] [place] [address] Dianelys Fonseca MD [address] [place] [address] 06/03/2025 10:00 AM EDT Appointment Echo Lab [address] [address] Sandra Hull DNP [address] [place] [address] 06/07/2025 11:30 AM EDT Appointment Non-Invasive Cardiology [address] [place] [address] Kyle Montanez MD [address] [place] [address] 07/03/2025 1:00 PM EST Office Visit [facility] [address] 3rd [facility], [address] [address] Jeniffer Josehp DNP [address] [place] [address] 09/13/2025 10:00 AM EST Office Visit [facility] [address], [address] [address] Roxy Burnette DNP [address] [place] [address], [address] [address] documented as of this encounter Visit Diagnoses Not on filedocumented in this encounter Care Teams Ton Container Filler Relationship Specialty Start Date End Date Richard Castro MD [address] [place] [address] [place] [address] PCP - General 06/02/17 documented as of this encounter Additional Source Comments The information contained in this document represents components of the legal health record. It is not the complete legal health record.[facility]
--- OUTSIDE RECORDS SUMMARY | 2025-05-16 13:09 | XMS_ITS | Encounter Summary ---
Author Organization [facility] Address [address] [facility] [address] [place] [address] Phone Care Team Providers Care Electronics Design Engineer Name Role Phone Richard Castro MD Primary Care Provider Encounter Details Date Type Department Care Team (Latest Contact Info) Description 06/04/2017 Ancillary Orders [facility] [address] 3rd Floor, [address] [place] [address] Av Orozco MD [address] [place] [address], [address] [address] Diagnosis unknown Social History Tobacco Use Types Packs/Day Years Used Date Smoking Tobacco: Never Assessed Sex and Gender Information Value Date Recorded Sex Assigned at Not on file Legal Sex Male 10:37 PM EDT Gender Identity Not on file Sexual Orientation Not on file documented as of this encounter Plan of Treatment Upcoming Encounters Date Type Department Care Team (Late st Contact Info) Description 04/03/2024 Procedure Pass Echo Lab [address] [place] [address] 05/17/2025 1:20 PM EDT Office Visit [facility] [address] 3rd Floor, [address] [place] [address] Dianelys Fonseca MD [address] [place] [address] 06/03/2025 10:00 AM EDT Appointment Echo Lab [address] [place] [address] Sandra Hull DNP [address] [place] [address], [address] [address] 06/07/2025 11:30 AM EDT Appointment Non-Invasive Cardiology [address] [place] [address] [place] [address] Kyle Montanez MD [address] [place] [address] 07/03/2025 1:00 PM EST Office Visit [facility] [address] [place] [address], [address] [address] Jeniffer Joseph DNP [address] [place] [address] 09/13/2025 10:00 AM EST Office Visit [facility] [address], [address] [address] Roxy Burnette DNP [address] [place] [address] documented as of this encounter Visit Diagnoses Diagnosis Diagnosis unknown documented in this encounter Care Teams Electronics Design Engineer Relationship Specialty Start Date End Date Richard Castro MD [address] [place] [address] [place] [address] PCP - General 06/02/17 documented as of this encounter Additional Source Comments The information contained in this document represents components of the legal health record. It is not the complete legal health record.[facility]
--- OUTSIDE RECORDS SUMMARY | 2025-05-16 13:09 | XMS_ITS | Encounter Summary ---
Author Organization [facility] Address [address] [facility] [address] [place] [address] Phone Care Team Providers Care Dye Weigher Helper Name Role Phone Richard Castro MD Primary Care Provider Encounter Details Date Type Department Care Team (Latest Contact Info) Description 11/15/2017 Ancillary Orders [facility] [address] 3rd [facility], [address] [place] [address] Av Orozco MD [address] [place] [address], [address] [address] Paroxysmal atrial fibrillation Social History Tobacco Use Types Packs/Day Years [...] Info) Description 04/03/2024 Procedure Pass Echo Lab [address] [place], [place] [id number] 05/17/2025 1:20 PM EDT Office Visit [facility] [address] 3rd Floor, [address] [place] [address] Dianelys Fonseca MD [address] [place] [address] 06/03/2025 10:00 AM EDT Appointment Echo Lab [address] [place] [address] Sandra Hull DNP [address] [place] [address], [address] [address] 06/07/2025 11:30 AM EDT Appointment Non-Invasive Cardiology [address] [place] [address] [place] [address] Kyle Montanez MD [address] [place] [address] 07/03/2025 1:00 PM EST Office Visit [facility] [address] [place] [address] 3rd [facility], [address] [address] Jeniffer Joseph DNP [address] [place] [address] 09/13/2025 10:00 AM EST Office Visit [facility] [address], [address] [address] Roxy Burnette DNP [address] [place] [address] documented as of this encounter Results * TTE COMPREHENSIVE (11/17/2017 10:06 AM EDT) Anatomical Region Laterality Modality Heart Ultrasound us Av Orozco MD CV ECHO ORDERABLES Final Result documented in this encounter Visit Diagnoses Diagnosis Paroxysmal atrial fibrillation Atrial fibrillation documented in this encounter Care Teams Dye Weigher Helper Relationship Specialty Start Date End Date Richard Castro MD [address] [place] [address] [facility] [place] [address] PCP - General 06/02/17 documented as of this encounter Additional Source Comments The information contained in this document represents components of the legal health record. It is not the complete legal health record.[facility]
--- OUTSIDE RECORDS SUMMARY | 2025-05-16 13:10 | XMS_ITS | Encounter Summary ---
Author Organization [facility] Address [address] [facility] [address] [place] [address] Phone Care Team Providers Care Research Fellow Name Role Phone Richard Castro MD Primary Care Provider Encounter Details Date Type Department Care Team (Late st Contact Info) Description 12/12/2020 Procedure Pass Echo [facility] [place] [place] [address] Social History Tobacco Use Types Packs/Day Years Used Date Smoking Tobacco: Former Cigarettes Q uit: 1970 Smokeless Tobacco: Never Alcohol Use Standard Drinks/Week Comments Yes 0 (1 standard drink = 0.6 oz pur e alcohol) occasionally Sex and Gender Information Value Date Recorded Sex Assigned at Not on file Legal Sex Male 10:37 PM EDT Gender Identity Not on file Sexual Orientation Not on file documented as of this encounter Plan of Treatment Upcoming Encounters Date Type Department Care Team (Late st Contact Info) Description 04/03/2024 Procedure Pass Echo Lab [place] [address] [place] [address] 05/17/2025 1:20 PM EDT Office Visit [facility] [address]rd Floor, [address] [place] [address] Dianelys Fonseca MD [address] [place] [address] 06/03/2025 10:00 AM EDT Appointment Echo [place] [address] Sandra Hull, JUAN [address] [place] [address], [address] [address] 06/07/2025 11:30 AM EDT Appointment Non-Invasive Cardiology [address] [place] [address] [place] [address] Kyle Montanez MD [address] [place] [address] 07/03/2025 1:00 PM EST Office Visit [facility] [address], [address] [address] Jeniffer Joseph DNP [address] [place] [address] 09/13/2025 10:00 AM EST Office Visit [facility] [address], [address] [address] Roxy Burnette DNP [address] [place] [address], [address] [address] documented as of this encounter Visit Diagnoses Not on filedocumented in this encounter Care Teams Research Fellow Relationship Specialty Start Date End Date Richard Castro MD [address] [place] [address] [place] [address] PCP - General 06/02/17 documented as of this encounter Additional Source Comments The information contained in this document represents components of the legal health record. It is not the complete legal health record.[facility]
--- OUTSIDE RECORDS SUMMARY | 2025-05-16 13:10 | XMS_ITS | Patient Health Record ---
Author Organization Richard Castro MD Address [address] [place], [place] [id number] Care Team Providers Care Gardening Supervisor Name Role Phone Richard Castro Primary Care Provider Allergies No Known Allergies Results Component Value Reference Range Notes Complete Blood Count Auto Di ff Reviewed date:07/03/2024 08:00:30 PM Interpretation: Performing Lab:[facility], [address] [place] [phone] Notes/Report: White Blood Count 7.5 4.8-10.8 X10*3/uL [...] NRBC Abs Auto 0.000 0.0-0.012 X10*3/uL Comprehensive [place]. Panel Fa st Reviewed date:07/03/2024 08:16:51 PM Interpretation: Performing Lab:[facility], [address] [place] [phone] Notes/Report: Sodium 138 135-145 mmol/L Potassium 4.1 [...] Panel Reviewed date:07/03/2024 08:01:49 PM Interpretation: Performing Lab:[facility], [address] [place] [phone] Notes/Report: Triglycerides 98 <150 mg/dL Desirable Triglyceride: [...] date:07/17/2024 04:52:07 PM Interpretation:see back 07-17-2024 Performing Lab:[facility], [address] [place] [phone] Notes/Report: PSA,Total (Free>4and<10) 5.94 0.00-4.00 ng/mL PSA methodology: Burgess Alinity i Chemiluminescent Microparticle Immunoassay (CMIA) UA ClnCatch+Micro w/rflx Cul t Reviewed date:07/03/2024 08:03:57 PM Interpretation: Performing Lab:[facility], [address] [place] [phone] Notes/Report: Urine, Clean Catch Color Urine Yellow Appearance Urine Clear PH 5.5 5.0-9.0 Glucose Urine UA Negative Negative mg/dL Urine Blood Negative Negative Specific [place] - Urine 1.015 1.005-1.025 Urine Protein Negative [...] ff Reviewed date:12/24/2024 05:16:55 PM Interpretation: Performing Lab:[facility], [address] [place] [phone] Notes/Report: White Blood Count 8.2 4.8-10.8 X10*3/uL [...] Panel Reviewed date:12/24/2024 05:16:08 PM Interpretation: Performing Lab:[facility], [address] [place] [phone] Notes/Report: Sodium 137 135-145 mmol/L Potassium 4.2 [...] date:07/23/2024 08:09:01 AM Interpretation:cback psa 07/17 Performing Lab:[facility], [address] [place] [phone] Notes/Report: Prostate Specific Ag Total 6.2 < [...] 30 93 9 (3)Catalona et al.:MICHI 277: 4688-6858 (1996) (4)Catalona et al.:MICHI 279: 9690-6073 (1997) (x)These estimates vary with age, ethnicity, [...] mind. PSA was performed using the Zulema Pala Immunoassay method. Values obtained from different assay methods cannot be used interchangeably. PSA levels, regardless of value, should not be interpreted as absolute evidence of the presence or absence of disease. THIS TEST WAS PERFORMED AT: [facility] [address] [place] [phone] CLAUS SEALS MD Free Prostate Spec Ag 1.3 CT shoulder RT wo con Reviewed date:12/19/2024 05:35:49 PM Interpretation: Performing Lab: Notes/Report: [place] [address] [address] Scan Report Signed Patient: Joselito Hurd MR#: [id number] : 1950 Acct:[id number] Age/Sex: 74 / M ADM Date: 12/17/24 Loc: HO.CT Attending Dr: Js Marquez PA-C Ordering Physician: Js Marquez PA-C Date of Service: 12/17/24 Procedure(s): CT shoulder RT wo IV con Accession Number(s): [id number] cc: Richard Castro MD; Js Marquez PA-C Report Number: [id number]: Total DLP = 283.00 mGy-cm CLINICAL HISTORY: [...] in OV> 12/19/24913 DD/ 2 TD/TT: 12/19/24912 Mechanical Oxidizer: [place] [address] [address] Scan Report Signed Patient: Flavia Hurd Sr MR#: [id number] : 1950 Acct:[id number] Age/Sex: 74 / M ADM Date: 12/17/24 Loc: HO.CT Attending Dr: Justino Marquez PA-C Ordering Physician: Js Marquez PA-C Date of Service: 12/17/24 Procedure(s): CT staci obrien RT wo IV con Accession Number(s): [id number] cc: Richard Castro MD; Js Marquez PA-C [...] in OV> 12/19/24913 DD/ 2 TD/TT: 12/19/24912 Mechanical Oxidizer: MRSA Nasal Screen Reviewed date:01/29/2025 05:00:18 PM Interpretation: Performing Lab:[facility], [address] [place] [phone] Notes/Report: MRSA Nasal PCR NEGATIVE Negative SA Nasal PCR NEGATIVE Negative MRSA Interpretation SEE NOTE MRSA target DNA not detected; SA target DNA not detected. A MRSA NEGATIVE, SA NEGATIVE test result does not preclude MRSA or SA nasal colonization. Complete Blood Count Auto Di ff Reviewed date:02/21/2025 05:04:30 PM Interpretation: Performing Lab:[facility], [address] [place] [phone] Notes/Report: White Blood Count 5.4 4.8-10.8 X10*3/uL [...] Panel Reviewed date:02/21/2025 04:13:13 PM Interpretation: Performing Lab:[facility], [address] [place] [phone] Notes/Report: Sodium 138 135-145 mmol/L Potassium 4.5 [...] Screen Reviewed date:02/21/2025 04:00:33 PM Interpretation: Performing Lab:[facility], [address] [place] [phone] Notes/Report: Spec expiration changed by ARPITA on 02/21/25 Reason: PAT NURSING: Call Blood Bank (ext. [phone]) to band patient on admission. Type and Screen in effect until 2300 on 02/26/25 Witnessed by [facility] Blood Type AP Antibody Screen NEGATIVE Hemoglobin and Hematocrit Reviewed date:02/26/2025 12:28:58 PM Interpretation: Performing Lab:[facility], [address] [place] [phone] Notes/Report: Hemoglobin 13.7 14.0-18.0 g/dl Hematocrit 40.8 42.0-52.0 % Pathology Reviewed date:02/28/2025 05:07:11 PM Interpretation: Performing Lab:[facility], [address] [place] [phone] Notes/Report: ------ Name: Joselito Hurd Sr Age/Sex: 75/M : 1950 Unit#: [id number] Attend Dr: Clint Thomas MD Re02/26/25 Status : [facility] Location: [facility] Disch: ------ SPEC : [id number] RECD : 02/27/25 STATUS: EARNEST WALLER NUM: [id number] KRISTINA: 02/26/25-1449 [facility] DR: Clint Thomas MD ENTERED: 02/27/25 52 [...] yet, brittle, tapia-yellow with yellow-pink bone marrow. [employer] secti ons are submitted in a cassette labeled A1 following decalcification. CEDS IHC S/NG Disclaimer NOTE: Unless otherwi se stated, all tissue is formalin-fixed and paraffin-embedded. Some or all of the immunohistochemical tests reported herein may have been developed and their performance characteristics determined by [facility]. They have not been cleared or appr saima by the U.S. Food and Drug Administration (FDA). However, the FDA has determined that such clearance or approval is not necessary. This laboratory is certified under the Clinical Laboratory Improvement Amendments of 1988 (CLIA) as qualified to perform high comp lexity clinical laboratory testing. Copies To: Richard Castro MD [facility] [address] [place] [id number] CONTINUED ON NEXT PAGE ------ Name: Joselito Hurd Sr Age/Sex: 75/M : 1950 Unit#: [id number] Attend Dr: Clint Thomas MD Re02/26/25 Status : [facility] Location: [facility] Disch: ------ SPEC : [id number] RECD : 02/27/25 STATUS: MARYJazlyn SRIDHAR NUM: [id number] KRISTINA: 02/26/25-9 [facility] DR: Clint Thomas MD ENTERED: 02/27/25 52 SP TYPE: Surgical OTHR DR: Richard Castro MD ORDERED: Gross Micro L3, Decal Copies To: (Continued) Clint Thomas MD [facility] [address] [place] [address] [address] [place] [address] ------ Signed (signature on file) Leon Keene MD 02/28/25 1146 ------ END OF REPORT XR shoulder RT 1V Reviewed date:02/26/2025 05:10:31 PM Interpretation: Performing Lab: Notes/Report: [address] [address] XRay Report Signed Patient: Joselito Hurd Sr MR#: [id number] : 1950 Acct:[id number] Age/Sex: 75 / M ADM Date: 02/26/25 Loc: .S3 345-[address]: Clint Thomas MD Ordering Physician: Js Marquez PA-C Date of Service: 02/26/25 Procedure(s): XR shoulder RT 1V Accession Number(s): [id number] cc: Richard Castro MD; Js Marquez PA-C [...] 02/26/25 1702 DD/ 1539 TD/TT: 02/26/25 1642 Mechanical Oxidizer: [address] [address] XRay Report Signed Patient: Flavia Hurd Sr MR#: [id number] : 1950 Acct:[id number] Age/Sex: 75 / M ADM Date: 02/26/25 Loc: .S3 345-[address]: Clint ellison MD Ordering Physician: Js Marquez PA-C Date of Service: 02/26/25 Procedure(s): XR staci ulder RT 1V Accession Number(s): [id number] cc: Richard Castro MD; Js Marquez PA-C [...] 02/26/25 1702 DD/ 1539 TD/TT: 02/26/25 1642 Mechanical Oxidizer: Complete Blood Count Auto Di ff Reviewed date:02/27/2025 04:10:37 PM Interpretation: Performing Lab:[facility], [address] [place] [phone] Notes/Report: White Blood Count 11.9 4.8-10.8 X10*3/uL [...] g Reviewed date:02/27/2025 04:01:26 PM Interpretation: Performing Lab:[facility], [address] [place] [phone] Notes/Report: Sodium 136 135-145 mmol/L Potassium 4.2 [...] Problem Status W/U Status Risk Notes Problem 659960869 Neuropathy (G62.9) Active confirmed Problem 47442923 Prostatism (N40.0) Active confirmed Problem 238907090 Paroxysmal atria l fibrillation (I48.0) Active confirmed Problem 552618557 Essential tremor (G25.0) Active confirmed Problem 312235207069246 Erectile dysfunc tion due to arterial insufficiency (N52.01) Active confirmed Problem 49005651 Mitral valve dis order (I05.9) Active confirmed Problem Pure hypercholesterolemia (725584774) Elevated LDL cholesterol level (E78.0) Active confirmed Problem 632519148 Non-rheumatic mi tral regurgitation (I34.0) Active confirmed Problem 550564563 Pure hypercholesterolemia (E78.00) Active confirmed Problem 266845369 Elevated PSA (R97.20) Active confirme d Problem 818097982 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 confirmed Problem 31365343 Hydronephrosis 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) Active confirmed Problem 657069991 Elevated serum cholesterol (E78.9) Active confirmed Problem 921016282 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 Vital Signs Blood pressure diastolic 70 mm Hg 12/24/2024 Height 70.50 in 12/24/2024 Blood pressure systolic 118 mm Hg 12/24/2024 Weight 200 lbs 12/24/2024 BMI 28.29 kg/m2 12/24/2024 Encounters Encounter Location Date Provider Diagnosis Richard Castro MD [address] [place] [id number] 07/03/2024 Richard Castro Elevated PSA R97.20 ; Encounter for immunization Z23 and Pure hypercholesterolemia E78.00 Richard Castro MD [address] [place] [id number] 07/17/2024 Richard Castro Essential tremor G25 .0 ; Pure hypercholesterolemia E78.00 ; Elevated PSA R97.20 ; Paroxysmal atrial fibrillation I48.0 ; Colon cancer screening Z12.11 and Depression screening Z13.31 Richard Castro MD [address] [place] [id number] 12/24/2024 Richard Castro Mass in neck R22.1 ; Right shoulder pain, unspecified chronicity M25.511 and Preop examination Z01.818 Richard Castro MD [address] [place] [id number] 01/15/2025 Richard Castro MD [address] [place] [id number] 02/28/2025 Richard Castro Assessments Encounter Date Diagnosis (ICD Code) Assessment Notes Treatment Notes Treatment Clinical Notes Section Notes 07/03/2024 Elevated PSA (ICD-10 - R97.20) 07/03/2024 Encounter for immunization (ICD-10 - Z23) 07/17/2024 Essential tremor (ICD-10 - G25.0) 07/17/2024 Pure hypercholesterolemia (ICD-10 - E78.00) 12/24/2024 Mass in neck (ICD-10 - R22.1) THE ORDER WAS FAXED TO [facility] CENTRALIZED, pending diagnsotic testing 12/24/2024 [...] his shoulder surgery if cleared by his industrial electrical engineer 07/17/2024 Paroxysmal atrial fibrillation (ICD-10 - I48.0) have warned him of the risk of stroke and he should be on anticoag. he is going to think about it and get back to me or maybe wait/ get last note from [facility] 07/17/2024 Colon cancer screeni ng (ICD-10 - Z12.11) guaiac negative 07/17/2024 Depression screening (ICD-10 - Z13.31) negative screen Plan Of Treatment Pending Test Test Name Order Date US RENAL BILATERAL 07/17/2020 US RENAL BILATERAL 07/24/2020 US soft tiss head and/or neck 12/24/2024 Future Test Test Name Order Date US RENAL BILATERAL 07/29/2021 Next Appt Details Provider Name:Richard Chatman ier, 07/05/2025 07:30:00 AM, [address] [place] [address], [address], [phone], Provider Name:Richard Chatman ier, 07/18/2025 01:00:00 PM, [address] [place] [address], [place] [address], [place], [place], [phone], Insurance Providers Payer Name Payer Address Payer Phone Subscriber Number Group Number Insured Name Patient Relationship to Insured Coverage Start Date Coverage End Date MED[employer] [address] [place] [address] [id number] Joselito Hurd Self - patient is the insured MEDEX BCBS OF [facility] [address] [place] [address] [id number] Joselito Hurd Self - patient is the [...]
--- OUTSIDE RECORDS SUMMARY | 2025-05-16 13:10 | XMS_ITS | Patient Health Record ---
Author Organization [facility] Address [address] [place] [address] Care Team Providers Care Child Life Assistant Name Role Phone Richard Castro MD Primary [...] Problem Status W/U Status Risk Notes Problem 04030952 Hemorrhoids (455.6) Active confirmed Problem 834242628 Colon cancer screening (V76.51) Active confirmed Problem 170707024 Abnormal findings in stool (792.1) Active confirmed Plan Of Treatment Future Test Test Name Order Date COLONOSCOPY 07/26/2014 Insurance Providers Payer Name Payer Address Payer Phone Subscriber Number Group Number Insured Name Patient Relationship to Insured Coverage Start Date Coverage End Date [facility] [address] [address] [place] [address] [id number] ROOSEVELT SAMUELS Self - patient is the insured MEDICARE OF [place] [address] [place] [address] [id number] ROOSEVELT SAMUELS Self - patient is the insured Medical (General) History Medical History History ICD Code lymphoma Atrial fibrillation mitral valve prolapse Surgical History Surgery Date(Month/Year) lymphectomy 1 node under arm 2010
== END 2025-05-16 11:37 | disposition home or self-care (01) ==
LOC: HO.HOS 11:14
PROVIDERS: PCP Internal Medicine; Visit Provider Orthopaedic Surgery
DX: Z96.611 Presence of right artificial shoulder joint (principal)
CPT/HCPCS: 99024

== ENCOUNTER → 2025-05-16 11:14 | Outpatient (BNVA) | payer MEDICARE, SELFPAY | PROVIDERS: PCP Internal Medicine; Visit Provider Orthopaedic Surgery | DX: Z47.1 Aftercare following joint replacement surgery (principal); Z96.611 Presence of right artificial shoulder joint | CPT/HCPCS: 99212 ==

== ENCOUNTER 2025-06-12 08:55 | Outpatient (REF) | payer MEDICARE, SELFPAY ==
--- OUTSIDE RECORDS SUMMARY | 2023-12-22 07:30 | XMS_ITS ---
Author Organization Richard Castro MD Address [address] [place], [place] [id number] Care Team Providers Care Real Estate Management Specialist Name Role Phone Richard Castro Primary Care Provider [phone] Allergies No Known Allergies Reason For Referral [...] will call patient with an appt , Desirae Simpson 01/02/2024 08:46:44 AM EDT > OFFICE [...] Location Date Provider Diagnosis Richard Castro MD [address] [place] [address] Drive [address] [place], [place] [id number] 12/22/2023 Richard Castro Acute pain of right [...] 07:30:00 AM, [address], [address], [place], [place], [id number], Provider Name:Richard Chatman ier, 07/18/2025 01:00:00 PM, [address], [address], [place], [place], [id number], Progress Notes * Joselito HURD ADOB:[birth year] (73 yo M)Acc No.[id number]:12/22/2023 Progress Notes Patient: Joselito Garcia Provider: Del Castro MD :1950 A ge:73 Y S ex:Male Date:12/22/2023 Address:[address] [place], [place] [phone] Subjective: * Chief Complaints: * P atient [...] 0 12/22/2023 Generated for Per deleon/Amandeep/Maninder on: 09:57 AM EDT History and Physical Notes * HPI (History [...]
--- OUTSIDE RECORDS SUMMARY | 2024-01-23 09:15 | XMS_ITS ---
Author Organization Richard Castro MD Address [address] [place] [phone] Care Team Providers Care Woodworking Machine Offbearer Name Role Phone Richard Castro Primary Care Provider [phone] Allergies No Known Allergies REASON FOR VISIT COUGHING ONE WEEK, WHEEZING and fatigue, CELL PHONE [phone], WILL TEST FOR COVID THIS MORN, tested [...] Location Date Provider Diagnosis Richard Castro MD [address] [place] [address] [place] [phone] 01/23/2024 Richard Castro Bronchitis J40 Assessments Encounter [...] 07:30:00 AM, [address], [address], [place], [place], [phone], Provider Name:Richard Chatman ier, 07/18/2025 01:00:00 PM, 10 [facility], [address], [place], [place], [phone], Progress Notes * Joselito HURD ADOB:[birth year] (73 yo M)Acc No.[id number]:01/23/2024 Patient: Joselito Garcia Provider: Del Castro MD :1950 A ge:73 Y S ex:Male Date:01/23/2024 Address:[address] [place], [place] [phone] Subjective: * Chief Complaints: * C OUGHING ONE WEEK, WHEEZING and fatigueCELL PHONE [phone] TEST FOR COVID THIS MORNtested for Covid [...] Category Not es Symptom(s) Telehealth Location of [facility] rendering services:: [address], [address] [...]
--- OUTSIDE RECORDS SUMMARY | 2024-07-03 04:30 | XMS_ITS ---
Author Organization Richard Castro MD Address [address] [place], [place] [id number] Care Team Providers Care Advanced Manufacturing Engineer Name Role Phone Richard Castro Primary Care Provider Results Component Value Reference Range Notes Complete Blood Count Auto Di ff Reviewed date:07/03/2024 08:00:30 PM Interpretation: Performing Lab:[facility], [address] [place] [phone] Notes/Report: White Blood Count 7.5 4.8-10.8 X10*3/uL [...] NRBC Abs Auto 0.000 0.0-0.012 X10*3/uL Comprehensive [place]. Panel Fa st Reviewed date:07/03/2024 08:16:51 PM Interpretation: Performing Lab:[facility], [address] [place] [phone] Notes/Report: Sodium 138 135-145 mmol/L Potassium 4.1 [...] 08:01:49 PM Interpretation: Performing Lab:[facility], [address] [place] [phone] Notes/Report: Triglycerides 98 <150 mg/dL Desirable Triglyceride: [...] Interpretation:see back 07-17-2024 Performing Lab:[facility], [address] [place] [phone] Notes/Report: PSA,Total (Free>4and<10) 5.94 0.00-4.00 ng/mL PSA methodology: Burgess Alinity i Chemiluminescent Microparticle Immunoassay (CMIA) UA ClnCatch+Micro w/rflx Cul t Reviewed date:07/03/2024 08:03:57 PM Interpretation: Performing Lab:[facility], [address] [place] [phone] Notes/Report: Urine, Clean Catch Color Urine Yellow Appearance Urine Clear PH 5.5 5.0-9.0 Glucose Urine UA Negative Negative mg/dL Urine Blood Negative Negative Specific [place] - Urine 1.015 1.005-1.025 Urine Protein Negative [...] Provider Diagnosis Richard Castro MD [address] [place], [place] [phone] 07/03/2024 Richard Castro Elevated PSA R97.20 ; Encounter for immunization Z23 and Pure hypercholesterolemia E78.00 Assessments Encounter Date Diagnosis (ICD Code) Assessment Notes Treatment Notes Treatment Clinical Notes Section Notes 07/03/2024 Elevated PSA (ICD-10 - R97.20) 07/03/2024 Encounter for immunization (ICD-10 - Z23) 07/03/2024 Pure hypercholesterolemia (ICD-10 - E78.00) Plan Of Treatment Next Appt Details Provider Name:Richard Chatman ier, 07/05/2025 07:30:00 AM, [address] [place] [address], [address], [phone], Provider Name:Richard Garcia Grettaaneudy ier, 07/18/2025 01:00:00 PM, [address] [place] [address], [place] [address], [place], [place], [phone], Progress Notes * Joselito HURD ADOB:[birth year] (75 yo M)Acc No.[id number]:07/03/2024 Progress Note Patient: Joselito HANNA Provider: Del Castro MD :1950 A ge:74 Y S ex:Male Date:07/03/2024 Address:[address] [place] [address] Subjective: * Chief Complaints: * 1 . [...] - 07/03/2024 08:30 AM) L AB: Comprehensive [place]. Panel Fast (Collection Date & Time - [...] FLU VAC NO FEE SCHED SAME DAY, [address] VENIPUNCT, ROUTINE* * * The named appointment provid er may or may not be the originator of this progress note, and it is not deemed complete until electronically signed by the appointment provider. Sign off status: Pending * Provider: Del Castro MD Date: 09/02/2023 Generated for Per deleon/Amandeep/Maninder on: 09:57 AM EDT
--- OUTSIDE RECORDS SUMMARY | 2024-07-17 09:30 | XMS_ITS ---
Author Organization Richard Castro MD Address [address] [place] [phone] Care Team Providers Care Wardrobe Supervisor Name Role Phone Richard Castro Primary Care Provider [phone] Allergies No Known Allergies Results Component Value [...] Location Date Provider Diagnosis Richard Castro MD [address] [place] [address] [address] [place], [place] [phone] 07/17/2024 Richard Castro Essential tremor G25 .0 [...] or maybe wait/ get last note from [facility] 07/17/2024 Colon cancer screeni ng (ICD-10 [...] or maybe wait/ get last note from [facility] Colon cancer screening guaiac negative Depression screening negative screen Next Appt Details Follow Up: 1 Year, Reason: Provider Name:Richard escamilla, 07/05/2025 07:30:00 AM, [address] [place] [address], [address] [place] [address], [phone], Provider Name:Richard escamilla, 07/18/2025 01:00:00 PM, [address] [place] [address], [place] [address], [place], [place], [phone], Progress Notes * Joselito HURD ADOB:[birth year] (74 yo M)Acc No.[id number]:07/17/2024 Patient: Joselito Garcia Provider: Del Castro MD :1950 A ge:74 Y S ex:Male Date:07/17/2024 Address[place] [address] Subjective: * Chief Complaints: * R eview [...] 01-23-24. * P ast Orders: L ab:Comprehensive [place]. Panel Fast (Order Date - 07/03/2024) (Collection [...] mg/dL Urine Blood Negative Negative - Specific [place] - Urine 1.015 1.005-1.025 - Urine Protein [...] or maybe wait/ get last note from [facility] 3. C olon cancer screening L [...]
--- OUTSIDE RECORDS SUMMARY | 2024-12-24 07:00 | XMS_ITS ---
Author Organization Richard Castro MD Address [address] [place], [place] [phone] Care Team Providers Care Casino Operations Supervisor Name Role Phone Richard Castro Primary Care Provider Allergies No Known Allergies Results Component Value Reference Range Notes Complete Blood Count Auto Di ff Reviewed date:12/24/2024 05:16:55 PM Interpretation: Performing Lab:[facility], [address] [place] [phone] Notes/Report: White Blood Count 8.2 4.8-10.8 X10*3/uL [...] Panel Reviewed date:12/24/2024 05:16:08 PM Interpretation: Performing Lab:[facility], [address] [place] [phone] Notes/Report: Sodium 137 135-145 mmol/L Potassium 4.2 [...] 02-12-25 needs CBC BMP EKG going to Arts Manager 01-01-25 to be cleared, Patientfound a [...] Date Provider Diagnosis Richard Castro MD [address] [place] [address] [address] [place], [place] [phone] 12/24/2024 Richard Castro Mass in neck R22.1 ; Right shoulder pain, unspecified chronicity M25.511 and Preop examination Z01.818 Assessments Encounter Date Diagnosis (ICD Code) Assessment Notes Treatment Notes Treatment Clinical Notes Section Notes 12/24/2024 Mass in neck (ICD-10 - R22.1) THE ORDER WAS FAXED TO [facility], pending diagnsotic testing 12/24/2024 Right shoulder pain, unspecified chronicity (ICD-10 - M25.511) 12/24/2024 Preop examination (ICD-10 - Z01.818) at this point i don't find anything medically to prevent his shoulder surgery if cleared by his implant coordinator Plan Of Treatment Treatment Notes Assessment Notes Mass in neck THE ORDER WAS FAXED TO [facility], pending diagnsotic testing Preop examination at this point i don' t find anything medically to prevent his shoulder surgery if cleared by his implant coordinator Pending Test Test Name Order Date US soft tiss head and/or neck 12/24/2024 Next Appt Details Follow Up: after us, Reason: Provider Name:Richard escamilla, 07/05/2025 07:30:00 AM, [address] [place] [address], [address], [place], [phone], Provider Name:Richard saldivarr, 07/18/2025 01:00:00 PM, [address] [place] [address], [address], [place], [place], [phone], Progress Notes * Joselito HURD ADOB:[birth year] (74 yo M)Acc No.[id number]:12/24/2024 Patient: Joselito HANNA Provider: Del Castro MD :1950 A ge:74 Y S ex:Male Date:12/24/2024 Address:[address] [place] [address] Subjective: * Chief Complaints: * r shoulder DR Thomas 02-12-25 needs CBC BMP EKG going to Arts Manager 01-01-25 to be clearedPatient found a [...] his right side. went to Urgent on [address] H ave you had two or [...] his shoulder surgery if cleared by his implant coordinator * Procedure Codes: 3 6415 VENIPUNCT, ROUTINE* * Follow Up: a fter us * * Sign off status: Completed true * Provider: Del Castro MD Date: 0 12/24/2024 Generated for Per deleon/Amandeep/eTransmitting on: 1 09:57 AM EDT History and Physical Notes [...] his right side. went to Urgent on [address]. Have you had two or more [...]
--- OUTSIDE RECORDS SUMMARY | 2025-01-15 05:25 | XMS_ITS ---
Author Organization Richard Castro MD Address [address] [place] [phone] Care Team Providers Care Meter Maintenance Person Name Role Phone Richard Castro Primary Care Provider REASON FOR VISIT FYI US neck cancelled Encounters Encounter Location Date Provider Diagnosis Richard Castro MD 10 [facility] [address] [place] [phone] 01/15/2025 Richard Castro Plan Of Treatment Next Appt Details Provider Name:Richard Chatman ier, 07/05/2025 07:30:00 AM, [address] [place] [address], [address] [place] [address], [phone], Provider Name:Richard Chatman iemelia, 07/18/2025 01:00:00 PM, [address] [place] [address], [address] [place] [address], [phone], Progress Notes * Joselito HURD ADOB:[birth year] (74 yo M)Acc No.[id number]:01/15/2025 Patient: Jose BELTRANJoselito LEWIS A :1950 A ge:74 Y S ex:Male Address:[address] [place] [address] * true * Date: Generated for Per deleon/Amandeep/Kendricksmitting on: 09:56 AM EDT
--- OUTSIDE RECORDS SUMMARY | 2025-02-28 09:57 | XMS_ITS ---
Author Organization Richard Castro MD Address [address] [place] [phone] Care Team Providers Care Bus Assistant Name Role Phone Richard Castro Primary Care Provider [phone] REASON FOR VISIT discharge Encounters Encounter Location Date Provider Diagnosis Richard Castro MD 10 [facility] [address] [place] [phone] 02/28/2025 Richard Castro Plan Of Treatment Next Appt Details Provider Name:Richard escamilla, 07/05/2025 07:30:00 AM, [address] [place] [address], [address], [phone], Provider Name:Richard escamilla, 07/18/2025 01:00:00 PM, [address] [place] [address], [address], [phone], Progress Notes * Joselito HURD ADOB:[birth year] (75 yo M)Acc No.[id number]:02/28/2025 Patient: Joselito HANNA :1950 A ge:75 Y S ex:Male Address:[address] [place] [address] * true * Date: Generated for Per deleon/Amandeep/Kendricksmitting on: 09:56 AM EDT
--- NOTE | ~2025-06-12 | XR_ITS ---
EXAMINATION: XR SHOULDER, RIGHT CLINICAL INFORMATION: M25.511 - Pain in right shoulder COMPARISON: March 14, 2025 TECHNIQUE: AP external rotation, Grashey, scapular Y, and axillary views of the right shoulder. FINDINGS: Metallic prosthesis with a humeral and glenoid component. There is loosening both glenoid and humeral components. No gross malalignment. Multiple vascular clips in the right axillary region. Clavicle is intact. 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 Electronically signed by: Shabbir Cody MD 06/12/2025 09:15 AM EDT
--- OUTSIDE RECORDS SUMMARY | 2025-06-13 09:57 | XMS_ITS | Clinical Summary ---
Author Organization [facility] Address [address] [address] Phone Care Team Providers Care Spare Parts Clerk Name Role Phone Richard Castro MD Primary [...] and now has another point to his [id number] score now making him by 2 which [...] Description 05/17/2025 1:20 PM EDT Office Visit [facility] [address], [address] [place] [address] Dianelys Fonseca MD Paroxysmal atrial fibrillation (Primary Dx); Current use of penitentiary anticoagulation 05/13/2025 4:00 PM EDT Office Visit [facility] [address], [address] [place] [address] Kyle Montanez MD Other chest pain (Primary [...] Description 07/03/2025 1:00 PM EST Office Visit [facility] [address] [place] [address] [place] [address], [address] [place] [address] Jeniffer Joseph DNP [address] [place] [address] 09/13/2025 10:00 AM EST Office Visit [facility] [address] [place] [address], [address] [place] [address] Roxy Burnette, JUAN [address] [place] [address] Health Maintenance Due Date Last Done Comments [...] this topic Medical Devices Implanted Type Area Bottle Line Worker Device Identifier Shelf Expiration Date Model / Serial / Lot Mesh Mesh Pin Pin Right: Arm Procedures Procedure Name Priority Date/Time Associated Diagnosis Comments BASIC METABOLIC PANEL Routine 09/10/2022 11:13 AM EST Persistent atrial fibrillation from Last 3 Months or Most Recently Relevant to Health Maintenance Results * (ABNORMAL) Basic metabolic panel (09/10/2022 11:13 AM EST) SODIUM 138 133 - 146 mmol/L [facility] CHLORIDE 102 96 - 108 mmol/L [facility] POTASSIUM 4.8 3.3 - 5.1 mmol/L [facility] CO2 27 21 - 35 mmol/L [facility] BUN 21(H) 6 - 19 mg/dL [facility] CREATININE 1.10 0.5 - 1.5 mg/dL [facility] GLUCOSE 93 70 - 99 mg/dL [facility] CALCIUM 9.2 8.4 - 10.3 mg/dL [facility] EGFR 71 >59 mL/min/1.7 3m2 [facility] Comment:Estimated glomerular filtration rate calculated using the CKD-EPI refit equation. ANION GAP 14 10 - 20 mmol/L [facility] Blood 09/10/2022 11:1 3 AM EST 09/10/2022 4:07 PM EST us Edenilson Stapleton MD LAB BLOOD ORDERABLES Final R esult [address] [address] from Last 3 Months or Most Recently Relevant to Health Maintenance Insurance [employer] MEDEX SUPPLEMENT MEDICARE PART A & B [employer] MEDEX SUPPLEMENT MEDICARE PART A & B [employer] MEDEX SUPPLEMENT MEDICARE PART A & B [employer] MEDEX SUPPLEMENT MEDICARE PART A & B MEDEX SUPPLEMENT MEDICARE PART A & B SHELBINA CROSS MEDEX SUPPLEMENT MEDICARE PART A & B Chromatin CROSS MEDEX SUPPLEMENT MEDICARE PART A & B Chromatin CROSS MEDEX SUPPLEMENT MEDICARE PART A & B [employer] MEDEX SUPPLEMENT MEDICARE PART A & B Care Teams Spare Parts Clerk Relationship Specialty Start Date End Date Richard Castro MD [address] [place] [address] [place] [address] PCP - General 06/02/17 Additional Source Comments The information contained in this document represents components of the legal health record. It is not the complete legal health record.[facility]
--- OUTSIDE RECORDS SUMMARY | 2025-06-13 09:57 | XMS_ITS | Encounter Summary ---
Author Organization [facility] Address [address] [facility] [address] [place] [address] Phone Care Team Providers Care What Job Titles Mean Name Role Phone Richard Castro MD Primary Care Provider Encounter Details Date Type Department Care Team (Latest Contact Info) Description 11/15/2017 Ancillary Orders [facility] [address], [address] [place] [address] Av Orozco MD 22 [facility], [address] [address] Paroxysmal atrial fibrillation Social History Tobacco Use [...] Description 07/03/2025 1:00 PM EST Office Visit [facility] [address] Floor, [address] [place] [address] Jeniffer Joseph, [facility] [address] [place] [address] 09/13/2025 10:00 AM EST Office Visit [facility] [address] Floor, [address] [place] [address] Roxy Burnette, JUAN 22 [facility], [address] [place] [address] [email or web address] documented as of this encounter Results * TTE COMPREHENSIVE (11/17/2017 10:06 AM EDT) Anatomical Region Laterality Modality Heart Ultrasound us Av Orozco MD CV ECHO ORDERABLES Final Result documented in this encounter Visit Diagnoses Diagnosis Paroxysmal atrial fibrillation Atrial fibrillation documented in this encounter Care Teams What Job Titles Mean Relationship Specialty Start Date End Date Richard Castro MD [address] [place] [address] [address] PCP - General 06/02/17 documented as of this encounter Additional Source Comments The information contained in this document represents components of the legal health record. It is not the complete legal health record.[facility]
--- OUTSIDE RECORDS SUMMARY | 2025-06-13 09:57 | XMS_ITS | Encounter Summary ---
Author Organization [facility] Address 399 [facility] [address] [place] [address] Phone Care Team Providers Care Women Nurse Name Role Phone Richard Castro MD Primary Care Provider Encounter Details Date Type Department Care Team (Late Contact Info) Description 08/26/2022 Procedure Pass [facility] [address] [place] [address] Social History Tobacco Use Types Packs/Day Years [...] Description 07/03/2025 1:00 PM EST Office Visit [facility] [address], [address] [place] [address] Jeniffer Joseph, [facility] [address] [place] [address] 09/13/2025 10:00 AM EST Office Visit [facility] [address] Floor, [address] [place] [address] Roxy Burnette DNP 22 [facility], [address] [place] [address] [email or web address] documented as of this encounter Visit Diagnoses Not on filedocumented in this encounter Care Teams Women Nurse Relationship Specialty Start Date End Date Richard Castro MD [address] [place] [address] [place] [address] PCP - General 06/02/17 documented as of this encounter Additional Source Comments The information contained in this document represents components of the legal health record. It is not the complete legal health record.[facility]
--- OUTSIDE RECORDS SUMMARY | 2025-06-13 09:57 | XMS_ITS | Encounter Summary ---
Author Organization [facility] Address [address] [facility] [address] [place] [address] Phone Care Team Providers Care Nuclear Auxiliary Operator Name Role Phone Richard Castro MD Primary Care Provider Encounter Details Date Type Department Care Team (Latest Contact Info) Description 06/04/2017 Ancillary Orders [facility] [address] Floor, [address] [place] [address] Av Orozco MD 22 [facility], [address] [address] Diagnosis unknown Social History Tobacco Use Types [...] Description 07/03/2025 1:00 PM EST Office Visit [facility] [address] Floor, [address] [place] [address] Jeniffer Joseph, JUAN [address] [place] [address] 09/13/2025 10:00 AM EST Office Visit [facility] [address] Floor, [address] [place] [address] Roxy Burnette, JUAN [address] [facility], [address] [place] [address] [email or web address] documented as of this encounter Visit Diagnoses Diagnosis Diagnosis unknown documented in this encounter Care Teams Nuclear Auxiliary Operator Relationship Specialty Start Date End Date Richard Castro MD [address] [place] [address] [address] PCP - General 06/02/17 documented as of this encounter Additional Source Comments The information contained in this document represents components of the legal health record. It is not the complete legal health record.[facility]
--- OUTSIDE RECORDS SUMMARY | 2025-06-13 09:58 | XMS_ITS | Patient Health Record ---
Author Organization [facility] Address [address] [place] [address] Care Team Providers Care Licensed Nuclear Operator Name Role Phone Richard Castro MD [...] Status W/U Status Risk Notes Problem Hemorrhoids (66703775) Hemorrhoids (455.6) Active confirmed Problem Colon cancer screening (275212850) Colon cancer screening (V76.51) Active confirmed Problem Feces contents abnormal (785671439) Abnormal findings in stool (792.1) Active confirmed Plan Of Treatment Future Test Test Name Order Date COLONOSCOPY 07/26/2014 Insurance Providers Payer Name Payer Address Payer Phone Subscriber Number Group Number Insured Name Patient Relationship to Insured Coverage Start Date Coverage End Date [facility] [address] [address] [place] [address] [phone] [id number] ROOSEVELT SAMUELS Self - patient is the insured MEDICARE OF [place] [address] [facility] [place] [address] [id number] ROOSEVELT SAMUELS Self - patient is the insured Medical (General) History Medical History History ICD Code lymphoma Atrial fibrillation mitral valve prolapse Surgical History Surgery Date(Month/Year) lymphectomy 1 node under arm 2010
--- OUTSIDE RECORDS SUMMARY | 2025-06-13 09:58 | XMS_ITS | Patient Health Record ---
Author Organization Richard Castro MD Address [address] [place], [place] [address] Care Team Providers Care Reproduction Technician Name Role Phone Richard Castro Primary Care Provider Allergies No Known Allergies Results Component Value Reference Range Notes Complete Blood Count Auto Di ff Reviewed date:07/03/2024 08:00:30 PM Interpretation: Performing Lab:[facility], [address] [place] [phone] Notes/Report: White Blood Count 7.5 4.8-10.8 X10*3/uL [...] NRBC Abs Auto 0.000 0.0-0.012 X10*3/uL Comprehensive [place]. Panel Fa st Reviewed date:07/03/2024 08:16:51 PM Interpretation: Performing Lab:[facility], [address] [place] [address] Notes/Report: Sodium 138 135-145 mmol/L Potassium 4.1 [...] Panel Reviewed date:07/03/2024 08:01:49 PM Interpretation: Performing Lab:[facility], [address] [place] [address] Notes/Report: Triglycerides 98 <150 mg/dL Desirable Triglyceride: [...] date:07/17/2024 04:52:07 PM Interpretation:see back 07-17-2024 Performing Lab:[facility], [address] [place] [address] Notes/Report: PSA,Total (Free>4and<10) 5.94 0.00-4.00 ng/mL PSA methodology: Burgess Alinity i Chemiluminescent Microparticle Immunoassay (CMIA) UA ClnCatch+Micro w/rflx Cul t Reviewed date:07/03/2024 08:03:57 PM Interpretation: Performing Lab:[facility], [address] [place] [phone] Notes/Report: Urine, Clean Catch Color Urine Yellow Appearance Urine Clear PH 5.5 5.0-9.0 Glucose Urine UA Negative Negative mg/dL Urine Blood Negative Negative Specific [place] - Urine 1.015 1.005-1.025 Urine Protein Negative [...] ff Reviewed date:12/24/2024 05:16:55 PM Interpretation: Performing Lab:[facility], [address] [place] [phone] Notes/Report: White Blood Count 8.2 4.8-10.8 X10*3/uL [...] Panel Reviewed date:12/24/2024 05:16:08 PM Interpretation: Performing Lab:[facility], [address] [place] [address] Notes/Report: Sodium 137 135-145 mmol/L Potassium 4.2 [...] date:07/23/2024 08:09:01 AM Interpretation:cback psa 07/17 Performing Lab:[facility], [address] [place] [address] Notes/Report: Prostate Specific Ag Total 6.2 < [...] 30 93 9 (3)Catalona et al.:MICHI 277: 8004-6658 (1996) (4)Catalona et al.:MICHI 279: 0279-2210 (1997) (x)These estimates vary with age, ethnicity, [...] of disease. THIS TEST WAS PERFORMED AT: [facility] [address] [place] [phone] CLAUS SEALS MD Free Prostate Spec Ag 1.3 CT shoulder RT wo con Reviewed date:12/19/2024 05:35:49 PM Interpretation: Performing Lab: Notes/Report: [place] [address] [address] Scan Report Signed Patient: Joselito Hurd MR#: [id number] : 1950 Acct:[id number] Age/Sex: 74 / M ADM Date: 12/17/24 Loc: HO.CT Attending Dr: Js Marquez PA-C Ordering Physician: Js Marquez PA-C Date of Service: 12/17/24 Procedure(s): CT shoulder RT wo IV con Accession Number(s): [id number] cc: Richard Castro MD; Js Marquez PA-C Report Number: [id number]: Total DLP = 283.00 mGy-cm CLINICAL HISTORY: [...] in OV> 12/19/[address] DD/ 2 TD/TT: 12/19/[address] Tig Welder: [place] [address] [address] Scan Report Signed Patient: Flavia Hurd Sr MR#: [id number] : 1950 Acct:[id number] Age/Sex: 74 / M ADM Date: 12/17/24 Loc: HO.CT Attending Dr: Justino Marquez PA-C Ordering Physician: Js Marquez PA-C Date of Service: 12/17/24 Procedure(s): CT staci obrien RT wo IV con Accession Number(s): [id number] cc: Richard Castro MD; Js Marquez PA-C [...] in OV> 12/19/24913 DD/ 2 TD/TT: 12/19/249[address] Tig Welder: MRSA Nasal Screen Reviewed date:01/29/2025 05:00:18 PM Interpretation: Performing Lab:[facility], [address] [place] [phone] Notes/Report: MRSA Nasal PCR NEGATIVE Negative SA Nasal PCR NEGATIVE Negative MRSA Interpretation SEE NOTE MRSA target DNA not detected; SA target DNA not detected. A MRSA NEGATIVE, SA NEGATIVE test result does not preclude MRSA or SA nasal colonization. Complete Blood Count Auto Di ff Reviewed date:02/21/2025 05:04:30 PM Interpretation: Performing Lab:[facility], [address] [place] [address] Notes/Report: White Blood Count 5.4 4.8-10.8 X10*3/uL [...] Panel Reviewed date:02/21/2025 04:13:13 PM Interpretation: Performing Lab:[facility], [address] [place] [phone] Notes/Report: Sodium 138 135-145 mmol/L Potassium 4.5 [...] Screen Reviewed date:02/21/2025 04:00:33 PM Interpretation: Performing Lab:[facility], [address] [place] [address] Notes/Report: Spec expiration changed by ARPITA on 02/21/25 Reason: PAT NURSING: Call Blood Bank (ext. [phone]) to band patient on admission. Type and Screen in effect until 2300 on 02/26/25 Witnessed by [facility] Blood Type AP Antibody Screen NEGATIVE Hemoglobin and Hematocrit Reviewed date:02/26/2025 12:28:58 PM Interpretation: Performing Lab:[facility], [address] [place] [phone] Notes/Report: Hemoglobin 13.7 14.0-18.0 g/dl Hematocrit 40.8 42.0-52.0 % Pathology Reviewed date:02/28/2025 05:07:11 PM Interpretation: Performing Lab:[facility], [address] [place] [phone] Notes/Report: ------ Name: Joselito Hurd Sr Age/Sex: 75/M : 1950 Unit#: [id number] Attend Dr: Clint Thomas MD Re02/26/25 Status : [facility] Location: [facility] Disch: ------ SPEC : [id number] RECD : 02/27/25 STATUS: EARNEST WALLER NUM: [id number] KRISTINA: 02/26/25-1449 [facility] DR: Clint Thomas MD ENTERED: 02/27/25 52 [...] yet, brittle, tapia-yellow with yellow-pink bone marrow. Assessment Rn secti ons are submitted in a cassette labeled A1 following decalcification. CEDS IHC S/NG Disclaimer NOTE: Unless otherwi se stated, all tissue is formalin-fixed and paraffin-embedded. Some or all of the immunohistochemical tests reported herein may have been developed and their performance characteristics determined by [facility]. They have not been cleared or appr saima by the U.S. Food and Drug Administration (FDA). However, the FDA has determined that such clearance or approval is not necessary. This laboratory is certified under the Clinical Laboratory Improvement Amendments of 1988 (CLIA) as qualified to perform high comp lexity clinical laboratory testing. Copies To: Richard Castro MD [facility] [address] [place] [address] CONTINUED ON NEXT PAGE ------ Name: Joselito Hurd Sr Age/Sex: 75/M : 1950 Unit#: [id number] Attend Dr: Clint Thomas MD Re02/26/25 [place] [facility] [place] [facility] Disch: ------ SPEC : [id number] RECD : 02/27/25 STATUS: MARYJazlyn SRIDHAR NUM: [id number] KRISTINA: 02/26/25-9 [facility] DR: Clint Thomas MD ENTERED: 02/27/25 52 SP TYPE: Surgical OTHR DR: Richard Castro MD ORDERED: Gross Micro L3, Decal Copies To: (Continued) Clint Thomas MD [facility] [address] [place] [address] [address] [place] [address] ------ Signed (signature on file) Leon Keene MD 02/28/25 1146 ------ END OF REPORT XR shoulder RT 1V Reviewed date:02/26/2025 05:10:31 PM Interpretation: Performing Lab: Notes/Report: [address] [address] XRay Report Signed Patient: Joselito Hurd Sr MR#: [id number] : 1950 Acct:[id number] Age/Sex: 75 / M ADM Date: 02/26/25 Loc: .S3 345-[address]: Clint Thomas MD Ordering Physician: Js Marquez PA-C Date of Service: 02/26/25 Procedure(s): XR shoulder RT 1V Accession Number(s): [id number] cc: Richard Castro MD; Js Marquez PA-C [...] 02/26/25 1702 DD/ 1539 TD/TT: 02/26/25 1642 Tig Welder: [address] [address] XRay Report Signed Patient: Flavia Hurd Sr MR#: [id number] : 1950 Acct:[id number] Age/Sex: 75 / M ADM Date: 02/26/25 Loc: .S3 345-[address]: Clint ellison MD Ordering Physician: Js Marquez PA-C Date of Service: 02/26/25 Procedure(s): XR staci ulder RT 1V Accession Number(s): [id number] cc: Richard Castro MD; Js Marquez PA-C [...] 02/26/25 1702 DD/ 1539 TD/TT: 02/26/25 1642 Tig Welder: Complete Blood Count Auto Di ff Reviewed date:02/27/2025 04:10:37 PM Interpretation: Performing Lab:[facility], [address] [place] [phone] Notes/Report: White Blood Count 11.9 4.8-10.8 X10*3/uL [...] g Reviewed date:02/27/2025 04:01:26 PM Interpretation: Performing Lab:[facility], [address] [place] [address] Notes/Report: Sodium 136 135-145 mmol/L Potassium 4.2 [...] Problem Status W/U Status Risk Notes Problem 473200725 Neuropathy (G62.9) Active confirmed Problem 10728455 Prostatism (N40.0) Active confirmed Problem 642395091 Paroxysmal atria l fibrillation (I48.0) Active confirmed Problem 261940345 Essential tremor (G25.0) Active confirmed Problem 137625880532257 Erectile dysfunc tion due to arterial insufficiency (N52.01) Active confirmed Problem 57732676 Mitral valve dis order (I05.9) Active confirmed Problem Pure hypercholesterolemia (138403843) Elevated LDL cholesterol level (E78.0) Active confirmed Problem 047636841 Non-rheumatic mi tral regurgitation (I34.0) Active confirmed Problem 166449623 Pure hypercholesterolemia (E78.00) Active confirmed Problem 663050014 Elevated PSA (R97.20) Active confirme d Problem 089239195 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 confirmed Problem 76024690 Hydronephrosis 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) Active confirmed Problem 729506639 Elevated serum cholesterol (E78.9) Active confirmed Problem 856392376 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 Vital Signs Blood pressure diastolic 70 mm Hg 12/24/2024 Height 70.50 in 12/24/2024 Blood pressure systolic 118 mm Hg 12/24/2024 Weight 200 lbs 12/24/2024 BMI 28.29 kg/m2 12/24/2024 Encounters Encounter Location Date Provider Diagnosis Richard Castro MD [address] [place] [id number] 07/03/2024 Richard Castro Elevated PSA R97.20 ; Encounter for immunization Z23 and Pure hypercholesterolemia E78.00 Richard Castro MD [address] [place] [id number] 07/17/2024 Richard Castro Essential tremor G25 .0 ; Pure hypercholesterolemia E78.00 ; Elevated PSA R97.20 ; Paroxysmal atrial fibrillation I48.0 ; Colon cancer screening Z12.11 and Depression screening Z13.31 Richard Castro MD [address] [place] [id number] 12/24/2024 Richard Castro Mass in neck R22.1 ; Right shoulder pain, unspecified chronicity M25.511 and Preop examination Z01.818 Richard Castro MD [address] [place] [id number] 01/15/2025 Richard Castro MD [address] [place] [id number] 02/28/2025 Richard Castro Assessments Encounter Date Diagnosis (ICD Code) Assessment Notes Treatment Notes Treatment Clinical Notes Section Notes 07/03/2024 Elevated PSA (ICD-10 - R97.20) 07/03/2024 Encounter for immunization (ICD-10 - Z23) 07/17/2024 Essential tremor (ICD-10 - G25.0) 07/17/2024 Pure hypercholesterolemia (ICD-10 - E78.00) 12/24/2024 Mass in neck (ICD-10 - R22.1) THE ORDER WAS FAXED TO [facility], pending diagnsotic testing 12/24/2024 Right shoulder [...] his shoulder surgery 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 he is going to think about it and get back to me or maybe wait/ get last note from [facility] 07/17/2024 Colon cancer screeni ng (ICD-10 - Z12.11) guaiac negative 07/17/2024 Depression screening (ICD-10 - Z13.31) negative screen Plan Of Treatment Pending Test Test Name Order Date US RENAL BILATERAL 07/17/2020 US RENAL BILATERAL 07/24/2020 US soft tiss head and/or neck 12/24/2024 Future Test Test Name Order Date US RENAL BILATERAL 07/29/2021 Next Appt Details Provider Name:Richard Chatman ier, 07/05/2025 07:30:00 AM, [address] [place] [address], [address], [phone], Provider Name:Richard Chatman ier, 07/18/2025 01:00:00 PM, [address] [place] [address], [place] [address], [place], [place], [phone], Insurance Providers Payer Name Payer Address Payer Phone Subscriber Number Group Number Insured Name Patient Relationship to Insured Coverage Start Date Coverage End Date [employer] [address] [place] [address] [id number] Joselito Hurd Self - patient is the insured MEDEX BCBS OF [facility] [address] [place] [address] [id number] Joselito Hurd Self - patient is the [...]
--- OUTSIDE RECORDS SUMMARY | 2025-06-13 09:58 | XMS_ITS | Encounter Summary ---
Author Organization [facility] Address [address] [facility] [address] [place] [address] Phone Care Team Providers Care Beam Dyer Recessed Vat Name Role Phone Richard Castro MD Primary Care Provider Encounter Details Date Type Department Care Team (Late st Contact Info) Description 12/12/2020 Procedure Pass Echo Lab [address] [place] [address] Social History Tobacco Use Types Packs/Day Years [...] Description 07/03/2025 1:00 PM EST Office Visit [facility] [address], [address] [place] [address] Jeniffer Joseph DNP [address] [place] [address] 09/13/2025 10:00 AM EST Office Visit [facility] [address], [address] [place] [address] Roxy Burnette DNP [address] [facility] [address] [place] [address] [email or web address] documented as of this encounter Visit Diagnoses Not on filedocumented in this encounter Care Teams Beam Dyer Recessed Vat Relationship Specialty Start Date End Date Richard Castro MD [address] [place] [address] Dr CHASE [address] [place] [address] PCP - General 06/02/17 documented as of this encounter Additional Source Comments The information contained in this document represents components of the legal health record. It is not the complete legal health record.[facility]
== END 2025-06-12 08:56 | disposition home or self-care (01) ==
LOC: HO.HOSX 08:55
PROVIDERS: Visit Provider Physician Assistant
DX: M25.511 Pain in right shoulder (principal); Z96.611 Presence of right artificial shoulder joint
CPT/HCPCS: 20610; 73030; 99212

== ENCOUNTER 2025-06-12 08:56 | Outpatient (AMB) | payer MEDICARE, SELFPAY ==
--- OUTSIDE RECORDS SUMMARY | 2023-12-22 07:30 | XMS_ITS ---
Author Organization Richard Castro MD Address [address] [place], [place] [id number] Care Team Providers Care Development Director Name Role Phone Richard Castro Primary Care [...] Location Date Provider Diagnosis Richard Castro MD [address] [place] [address] Drive [address] [place], [place] [id number] 12/22/2023 Richard Castro Acute pain of right [...] , Clint Thomas Next Appt Details Provider Name:Richrad Chatman ier, 07/05/2025 07:30:00 AM, [address], [address], [place], [place], [phone], Provider Name:Richard Chatman ier, 07/18/2025 01:00:00 PM, [address], [address], [place], [place], [id number], Progress Notes * Joselito HURD ADOB:[birth year] (73 yo M)Acc No.[id number]:12/22/2023 Progress Notes Patient: Joselito Garcia Provider: Del Castro MD :1950 A ge:73 Y S ex:Male Date:12/22/2023 Address:[address] [place], [place] [phone] Subjective: * Chief Complaints: * P atient [...]
--- OUTSIDE RECORDS SUMMARY | 2024-01-23 09:15 | XMS_ITS ---
Author Organization Richard Castro MD Address [address] [place] [phone] Care Team Providers Care Chain Sales Consultant Name Role Phone Richard Castro Primary Care Provider Allergies No Known Allergies REASON FOR VISIT COUGHING ONE WEEK, WHEEZING and fatigue, CELL PHONE [phone], WILL TEST FOR COVID THIS MORN, tested [...] Date Provider Diagnosis Richard Castro MD [address] [place] [address] [place] [phone] 01/23/2024 Richard Castro Bronchitis J40 Assessments Encounter [...] 07:30:00 AM, [address], [address], [place], [place], [phone], Provider Name:Richard Chatman ier, 07/18/2025 01:00:00 PM, 10 [facility], [address], [place], [place], [phone], Progress Notes * Joselito HURD ADOB:[birth year] (73 yo M)Acc No.[id number]:01/23/2024 Patient: Joselito Garcia Provider: Del Castro MD :1950 A ge:73 Y S ex:Male Date:01/23/2024 Address:[address] [place], [place] [phone] Subjective: * Chief Complaints: * C OUGHING ONE WEEK, WHEEZING and fatigueCELL PHONE [phone] TEST FOR COVID THIS MORNtested for Covid [...] 01/23/2024 Generated for Per deleon/Amandeep/Maninder on: 1 09:56 AM EDT History and Physical Notes * HPI (History of Present Illness) Category Sub-Category Detail Notes Category Not es Symptom(s) Telehealth Location of [facility] rendering services:: [address], [address] [...]
--- OUTSIDE RECORDS SUMMARY | 2024-07-03 04:30 | XMS_ITS ---
Author Organization Richard Castro MD Address [address] [place], [place] [id number] Care Team Providers Care Change Release Manager Name Role Phone Richard Castro Primary Care Provider [phone] Results Component Value Reference Range Notes Complete Blood Count Auto Di ff Reviewed date:07/03/2024 08:00:30 PM Interpretation: Performing Lab:[facility], [address] [place] [phone] Notes/Report: White Blood Count 7.5 4.8-10.8 X10*3/uL [...] NRBC Abs Auto 0.000 0.0-0.012 X10*3/uL Comprehensive [place]. Panel Fa st Reviewed date:07/03/2024 08:16:51 PM Interpretation: Performing Lab:[facility], [address] [place] [phone] Notes/Report: Sodium 138 135-145 mmol/L Potassium 4.1 [...] Panel Reviewed date:07/03/2024 08:01:49 PM Interpretation: Performing Lab:[facility], [address] [place] [phone] Notes/Report: Triglycerides 98 <150 mg/dL Desirable Triglyceride: [...] date:07/17/2024 04:52:07 PM Interpretation:see back 07-17-2024 Performing Lab:[facility], [address] [place] [phone] Notes/Report: PSA,Total (Free>4and<10) 5.94 0.00-4.00 ng/mL PSA methodology: Burgess Alinity i Chemiluminescent Microparticle Immunoassay (CMIA) UA ClnCatch+Micro w/rflx Cul t Reviewed date:07/03/2024 08:03:57 PM Interpretation: Performing Lab:[facility], [address] [place] [phone] Notes/Report: Urine, Clean Catch Color Urine Yellow Appearance Urine Clear PH 5.5 5.0-9.0 Glucose Urine UA Negative Negative mg/dL Urine Blood Negative Negative Specific [place] - Urine 1.015 1.005-1.025 Urine Protein Negative [...] 10 100 MG 1 capsule with a nlis l Orally Once a day Active Immunizations Vaccine Route Administration Date Status Comme nts Influenza High Dose IM Intramuscular 07/03/2024 Administer ed Encounters Encounter Location Date Provider Diagnosis Richard Castro MD [address] [place], [place] [phone] 07/03/2024 Richard Castro Elevated PSA R97.20 ; Encounter for immunization Z23 and Pure hypercholesterolemia E78.00 Assessments Encounter Date Diagnosis (ICD Code) Assessment Notes Treatment Notes Treatment Clinical Notes Section Notes 07/03/2024 Elevated PSA (ICD-10 - R97.20) 07/03/2024 Encounter for immunization (ICD-10 - Z23) 07/03/2024 Pure hypercholesterolemia (ICD-10 - E78.00) Plan Of Treatment Next Appt Details Provider Name:Richard Chatman ier, 07/05/2025 07:30:00 AM, [address] [place] [address], [address], [phone], Provider Name:Richard Garcia Grettaaneudy ier, 07/18/2025 01:00:00 PM, [address] [place] [address], [place] [address], [place], [place], [phone], Progress Notes * Joselito HURD ADOB:[birth year] (75 yo M)Acc No.[id number]:07/03/2024 Progress Note Patient: Joselito HANNA Provider: Del Castro MD :1950 A ge:74 Y S ex:Male Date:07/03/2024 Address:[address] [place] [address] Subjective: * Chief Complaints: * 1 . [...] - 07/03/2024 08:30 AM) L AB: Comprehensive [place]. Panel Fast (Collection Date & Time - [...] FLU VAC NO FEE SCHED SAME DAY, [address] VENIPUNCT, ROUTINE* * * The named appointment provid er may or may not be the originator of this progress note, and it is not deemed complete until electronically signed by the appointment provider. Sign off status: Pending * Provider: Del Castro MD Date: 09/02/2023 Generated for Per deleon/Amandeep/Maninder on: 09:58 AM EDT
--- OUTSIDE RECORDS SUMMARY | 2024-07-17 09:30 | XMS_ITS ---
Author Organization Richard Castro MD Address [address] [place] [phone] Care Team Providers Care Neurology Nurse Name Role Phone Richard Castro Primary Care [...] Location Date Provider Diagnosis Richard Castro MD [address] [place] [address] [address] [place], [place] [phone] 07/17/2024 Richard Castro Essential tremor G25 .0 [...] or maybe wait/ get last note from [facility] 07/17/2024 Colon cancer screeni ng (ICD-10 [...] or maybe wait/ get last note from [facility] Colon cancer screening guaiac negative Depression screening negative screen Next Appt Details Follow Up: 1 Year, Reason: Provider Name:Richard escamilla, 07/05/2025 07:30:00 AM, [address] [place] [address], [address] [place] [address], [phone], Provider Name:Richard escamilla, 07/18/2025 01:00:00 PM, [address] [place] [address], [place] [address], [place], [place], [phone], Progress Notes * Joselito HURD ADOB:[birth year] (74 yo M)Acc No.[id number]:07/17/2024 Patient: Joselito Garcia Provider: Del Castro MD :1950 A ge:74 Y S ex:Male Date:07/17/2024 Address[place] [address] Subjective: * Chief Complaints: * R eview [...] 01-23-24. * P ast Orders: L ab:Comprehensive [place]. Panel Fast (Order Date - 07/03/2024) (Collection [...] mg/dL Urine Blood Negative Negative - Specific [place] - Urine 1.015 1.005-1.025 - Urine Protein [...] or maybe wait/ get last note from [facility] 3. C olon cancer screening L AB: Occult Blood, Stool, Guaiac N egative Value Reference Range O ccult Blood, Stool, Guaiac Neg Notes: guaiac negative??4.?Depression screening? Notes: negative screen?? * Procedure Codes: 8 2270 TEST FOR BLOOD, FECES * Follow Up: 1 Year * * Sign off status: Completed true * Provider: Del Castro MD Date: 09/17/2023 Generated for Per deleon/Amandeep/Maninder on: 09:57 AM [...]
--- OUTSIDE RECORDS SUMMARY | 2024-12-24 07:00 | XMS_ITS ---
Author Organization Richard Castro MD Address [address] [place], [place] [phone] Care Team Providers Care Public Health Educator Name Role Phone Richard Castro Primary Care Provider Allergies No Known Allergies Results Component Value Reference Range Notes Complete Blood Count Auto Di ff Reviewed date:12/24/2024 05:16:55 PM Interpretation: Performing Lab:[facility], [address] [place] [phone] Notes/Report: White Blood Count 8.2 4.8-10.8 X10*3/uL [...] Panel Reviewed date:12/24/2024 05:16:08 PM Interpretation: Performing Lab:[facility], [address] [place] [phone] Notes/Report: Sodium 137 135-145 mmol/L Potassium 4.2 [...] 02-12-25 needs CBC BMP EKG going to Se[facility] 01-01-25 to be cleared, Patientfound a [...] Date Provider Diagnosis Richard Castro MD [address] [place] [address] [address] [place], [place] [phone] 12/24/2024 Richard Castro Mass in neck R22.1 ; Right shoulder pain, unspecified chronicity M25.511 and Preop examination Z01.818 Assessments Encounter Date Diagnosis (ICD Code) Assessment Notes Treatment Notes Treatment Clinical Notes Section Notes 12/24/2024 Mass in neck (ICD-10 - R22.1) THE ORDER WAS FAXED TO [facility], pending diagnsotic testing 12/24/2024 Right shoulder pain, unspecified chronicity (ICD-10 - M25.511) 12/24/2024 Preop examination (ICD-10 - Z01.818) at this point i don't find anything medically to prevent his shoulder surgery if cleared by his strapper Plan Of Treatment Treatment Notes Assessment Notes Mass in neck THE ORDER WAS FAXED TO [facility], pending diagnsotic testing Preop examination at this point i don' t find anything medically to prevent his shoulder surgery if cleared by his strapper Pending Test Test Name Order Date US soft tiss head and/or neck 12/24/2024 Next Appt Details Follow Up: after us, Reason: Provider Name:Richard escamilla, 07/05/2025 07:30:00 AM, [address] [place] [address], [address], [place], [phone], Provider Name:Richard saldivarr, 07/18/2025 01:00:00 PM, [address] [place] [address], [address], [place], [place], [phone], Progress Notes * Joselito HURD ADOB:[birth year] (74 yo M)Acc No.[id number]:12/24/2024 Patient: Joselito HANNA Provider: Del Castro MD :1950 A ge:74 Y S ex:Male Date:12/24/2024 Address:[address] [place] [address] Subjective: * Chief Complaints: * r shoulder DR Thomas 02-12-25 needs CBC BMP EKG going to Seafood Manager 01-01-25 to be clearedPatient found a [...] his right side. went to Urgent on [address] you had two or [...] his shoulder surgery if cleared by his strapper * Procedure Codes: 3 6415 VENIPUNCT, ROUTINE* * Follow Up: a fter us * * Sign off status: Completed true * Provider: Del Castro MD Date: 0 12/24/2024 Generated for Per deleon/Amandeep/eTransmitting on: 1 09:58 AM EDT History and Physical Notes * [...] his right side. went to Urgent on [address]. Have you had two or more [...]
--- OUTSIDE RECORDS SUMMARY | 2025-01-15 05:25 | XMS_ITS ---
Author Organization Richard Castro MD Address [address] [place] [phone] Care Team Providers Care Credit Risk Specialist Name Role Phone Richard Castro Primary Care Provider REASON FOR VISIT FYI US neck cancelled Encounters Encounter Location Date Provider Diagnosis Richard Castro MD 10 [facility] [address] [place] [phone] 01/15/2025 Richard Castro Plan Of Treatment Next Appt Details Provider Name:Richard Chatman ier, 07/05/2025 07:30:00 AM, [address] [place] [address], [address] [place] [address], [phone], Provider Name:Richard Chatman iemelia, 07/18/2025 01:00:00 PM, [address] [place] [address], [address] [place] [address], [phone], Progress Notes * Joselito HURD ADOB:[birth year] (74 yo M)Acc No.[id number]:01/15/2025 Patient: Jose BELTRANJoselito LEWIS A :1950 A ge:74 Y S ex:Male Address:[address] [place] [address] * true * Date: Generated for Per deleon/Amandeep/Kendricksmitting on: 09:57 AM EDT
--- OUTSIDE RECORDS SUMMARY | 2025-02-28 09:57 | XMS_ITS ---
Author Organization Richard Castro MD Address [address] [place] [address] [phone] Care Team Providers Care Emt I/99 Name Role Phone Richard Castro Primary Care Provider REASON FOR VISIT discharge Encounters Encounter Location Date Provider Diagnosis Richard Castro MD 10 [facility] [address] [place] [address] [phone] 02/28/2025 Richard Castro Plan Of Treatment Next Appt Details Provider Name:Richard escamilla, 07/05/2025 07:30:00 AM, [address] [place] [address], [address], [phone], Provider Name:Richard escamilla, 07/18/2025 01:00:00 PM, [address] [place] [address], [address], [phone], Progress Notes * Joselito HURD ADOB:[birth year] (75 yo M)Acc No.[id number]:02/28/2025 Patient: Joselito HANNA :1950 A ge:75 Y S ex:Male Address:[address] [place] [address] * true * Date: Generated for Per deleon/Amandeep/Kendricksmitting on: 09:56 AM EDT
--- NOTE | 2025-06-12 08:58 | MHC.OFFVIS ---
Intake Visit Reasons: OV- r RTSA 02/26/25 NE Intake Note: Joselito is a 75 year old left hand dominant male who presents today with concerns of lump on right shoulder status post right reverse TSA, performed by Dr. Thomas on 02/26/25. Patient complains of red tender lump located near his incision. No injury, however he recently helped his trim some bushes with a nathan. Allergies No Known Allergies (No Known Allergies*) Allergy (Verified 06/12/25 09:07) Medication List - Last Reconciled 06/12/25 by Js Marquez PA-C diltiazem HCl CD (Cartia XT) 120 mg PO DAILY flecainide 150 mg PO BID propranolol ER 80 mg PO NEEDED PRN rivaroxaban (Xarelto) 20 mg PO QPM tamsulosin 0.4 mg PO DAILY HPI HPI OV- r RTSA 02/26/25 NE: Details: 75-year-old gentleman presents to the office today for a follow-up reverse right total shoulder arthroplasty on 02/26/[address] Thomas. Patient states for about a week he noticed some redness along the incision with some swelling. He denies fever but states he did have some night sweats. He does mention he was using some hedge trimmers and thought maybe that irritated the shoulder as he did have some increased pain from that moment. Also noticed some bruising along the inner aspect of the antecubital fossa region. 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) Acute UTI Sepsis Calculus, renal Hydronephrosis Surgical History S/P right rotator cuff repair Hx of colonoscopy Hx of repair of right rotator cuff (~2014) History of left inguinal hernia repair (~2020) History of right inguinal hernia repair (08/28/18) History of bilateral inguinal hernia repair (06/28/17) History of arthroscopy of left knee Family History Father Throat cancer Mother Melanoma Leukemia Social History Household Members: Spouse and Children Housing: House Are you a primary resident care assistant to a significant other at home: No Do you presently have visiting nurse or other home services: No 75 years or older and lives alone: No Comment: hematoma right thigh, resolved no fracture with 12/2024 fall, no head strike Patient Tobacco Use Status: Former Tobacco user Tobacco use type: Cigarette service: Yes Current occupational status: retired Review of Systems Const All systems reviewed & are unremarkable except as noted in HPI and below Physical Exam Extrem Other: Right shoulder incision is well healed. He does have some erythema around the incision with a palpable lump over the proximal end of the incision which is firm and tender to palpation. Results Reviewed Results Reviewed: X-rays of the right shoulder obtained in the office today and reviewed by me show intact prosthesis without dislocation Assessment & Plan Assessment & Plan (1) Status post reverse total arthroplasty of right shoulder: Code(s): Z96.611 - Presence of right artificial shoulder joint Category: Surgical Plan: I discussed the case with Dr. Thomas over the phone. The decision was made to attempt an aspiration of the mass to rule out any source of infection. The patient was content with this plan and after attempted aspiration there was no fluid drawn. I explained to the patient the likelihood of infection is still on her differential however this could also be hematoma versus scar tissue at the least. The patient will return tomorrow while Dr. Thomas is in the office for further evaluation. In the meantime the patient will apply heat to the area 20 minutes 4 times a day to see if we can get this mass to loosen up. He is content with this plan and will return tomorrow Orders: Orders XR shoulder RT min 2V Today M25.511 - Pain in right shoulder Coding Level of Care Code Est Pt Level 3 (54675) Diagnoses Status post reverse total arthroplasty of right shoulder Z96.611
--- OUTSIDE RECORDS SUMMARY | 2025-06-12 09:57 | XMS_ITS | Clinical Summary ---
Author Organization [facility] Address [address] [address] Phone Care Team Providers Care Ride Attendant Name Role Phone Richard Castro MD Primary [...] and now has another point to his [id number] score now making him by 2 which [...] Encounters Date Type Department Care Team Description 05/17/2025 1:20 PM EDT Office Visit [facility] [address], [address] [place] [address] Dianelys Fonseca MD Paroxysmal atrial fibrillation (Primary Dx); Current use of senior care anticoagulation 05/13/2025 4:00 PM EDT Office Visit [facility] [address], [address] [place] [address] Kyle Montanez MD Other chest pain (Primary [...] Sign Reading Time Taken Comments Blood Pressure 118/76 05/17/2025 1:26 PM EDT Pulse 71 05/17/2025 1:26 PM EDT Temperature 35.9 C (96.6 F) 09/15/2022 8:15 AM EST Respiratory Rate 16 09/15/2022 9:50 AM EST Oxygen Saturation 98% 05/17/2025 1:26 PM EDT Inhaled Oxygen Concentration - - Weight 92.1 kg (203 lb) 05/17/2025 1:26 PM EDT Height 180.3 cm (5' 10.98 ) 05/17/2025 1:26 PM E DT Body Mass Index 28.33 05/17/2025 1:26 PM EDT Plan of Treatment Upcoming Encounters Date Type Department Care Team (Late st Contact Info) Description 07/03/2025 1:00 PM EST Office Visit [facility] [address] [place] [address] [place] [address], [address] [place] [phone] Jeniffer Joseph DNP [address] [place] [address] 09/13/2025 10:00 AM EST Office Visit [facility] [address] [place] [address], [address] [place] [address] Roxy Burnette, JUAN [address] [place] [address] Health Maintenance Due Date Last Done Comments [...] STATUS SCREENING (Once After 26 Yrs) Completed 05/17/2025 HEPATITIS A VACCINES Aged Out No long [...] this topic Medical Devices Implanted Type Area Municipal Engineer Device Identifier Shelf Expiration Date Model / Serial / Lot Mesh Mesh Pin Pin Right: Arm Procedures Procedure Name Priority Date/Time Associated Diagnosis Comments BASIC METABOLIC PANEL Routine 09/10/2022 11:13 AM EST Persistent atrial fibrillation from Last 3 Months or Most Recently Relevant to Health Maintenance Results * (ABNORMAL) Basic metabolic panel (09/10/2022 11:13 AM EST) SODIUM 138 133 - 146 mmol/L [facility] CHLORIDE 102 96 - 108 mmol/L [facility] POTASSIUM 4.8 3.3 - 5.1 mmol/L [facility] CO2 27 21 - 35 mmol/L [facility] BUN 21(H) 6 - 19 mg/dL [facility] CREATININE 1.10 0.5 - 1.5 mg/dL [facility] GLUCOSE 93 70 - 99 mg/dL [facility] CALCIUM 9.2 8.4 - 10.3 mg/dL [facility] EGFR 71 >59 mL/min/1.7 3m2 [facility] Comment:Estimated glomerular filtration rate calculated using the CKD-EPI refit equation. ANION GAP 14 10 - 20 mmol/L [facility] Blood 09/10/2022 11:1 3 AM EST 09/10/2022 4:07 PM EST us Edenilson Stapleton MD LAB BLOOD ORDERABLES Final R esult [address] [address] from Last 3 Months or Most Recently Relevant to Health Maintenance Insurance [employer] MEDEX SUPPLE[employer] MEDICARE PART A & B [employer] MEDEX SUPPLEMENT MEDICARE PART A & B [employer] MEDEX SUPPLE[employer] MEDICARE PART A & B [employer] MEDEX SUPPLE[employer] MEDICARE PART A & B MEDEX SUPPLEMENT MEDICARE PART A & B [employer] MED[employer] SUPPLEMENT MEDICARE PART A & B [employer] MEDEX SUPPLEMENT MEDICARE PART A & B [employer] MEDEX SUPPLEMENT MEDICARE PART A & B [employer] MEDEX SU[employer]LE[employer] MEDICARE PART A & B Care Teams Ride Attendant Relationship Specialty Start Date End Date Richard Castro MD [address] [place] [address] [place] [address] PCP - General 06/02/17 Additional Source Comments The information contained in this document represents components of the legal health record. It is not the complete legal health record.[facility]
--- OUTSIDE RECORDS SUMMARY | 2025-06-12 09:57 | XMS_ITS | Encounter Summary ---
Author Organization [facility] Address [address] [facility] [address] [place] [address] Phone Care Team Providers Care Watch Repair Technician Name Role Phone Richard Castro MD Primary Care Provider Encounter Details Date Type Department Care Team (Latest Contact Info) Description 11/15/2017 Ancillary Orders [facility] [address] Floor, [address] [place] [address] Av Orozco MD [address] [facility], [address] [address] Paroxysmal atrial fibrillation Social History Tobacco Use [...] Description 07/03/2025 1:00 PM EST Office Visit [facility] [address] Floor, [address] [place] [address] Jeniffer Joseph, [facility] [address] [place] [address] 09/13/2025 10:00 AM EST Office Visit [facility] [address] Floor, [address] [place] [address] Roxy Burnette, JUAN [address] [facility], [address] [place] [address] [email or web address] documented as of this encounter Results * TTE COMPREHENSIVE (11/17/2017 10:06 AM EDT) Anatomical Region Laterality Modality Heart Ultrasound us Av Orzoco MD CV ECHO ORDERABLES Final Result documented in this encounter Visit Diagnoses Diagnosis Paroxysmal atrial fibrillation Atrial fibrillation documented in this encounter Care Teams Watch Repair Technician Relationship Specialty Start Date End Date Richard Castro MD [address] [place] [address] [address] PCP - General 06/02/17 documented as of this encounter Additional Source Comments The information contained in this document represents components of the legal health record. It is not the complete legal health record.[facility]
--- OUTSIDE RECORDS SUMMARY | 2025-06-12 09:57 | XMS_ITS | Encounter Summary ---
Author Organization [facility] Address [address] [facility] [address] [place] [address] Phone Care Team Providers Care Investigation Manager Name Role Phone Richard Castro MD Primary Care Provider Encounter Details Date Type Department Care Team (Latest Contact Info) Description 06/04/2017 Ancillary Orders [facility] [address] Floor, [address] [place] [address] Av Orozco MD 22 [facility], [address] [address] Diagnosis unknown Social History Tobacco Use Types [...] Description 07/03/2025 1:00 PM EST Office Visit [facility] [address] Floor, [address] [place] [address] Jeniffer Joseph, JUAN [address] [place] [address] 09/13/2025 10:00 AM EST Office Visit [facility] [address] 3[address] Floor, [address] [place] [address] Roxy Burnette, JUAN [address] [facility], [address] [place] [address] [email or web address] documented as of this encounter Visit Diagnoses Diagnosis Diagnosis unknown documented in this encounter Care Teams Investigation Manager Relationship Specialty Start Date End Date Richard Castro MD [address] [place] [address] [address] PCP - General 06/02/17 documented as of this encounter Additional Source Comments The information contained in this document represents components of the legal health record. It is not the complete legal health record.[facility]
--- OUTSIDE RECORDS SUMMARY | 2025-06-12 09:58 | XMS_ITS | Encounter Summary ---
Author Organization [facility] Address [address] [facility] [address] [place] [address] Phone Care Team Providers Care Fire Management Technician Name Role Phone Richard Castro MD Primary Care Provider Encounter Details Date Type Department Care Team (Late Contact Info) Description 08/26/2022 Procedure Pass [facility] [address] [place] [address] Social History Tobacco Use Types Packs/Day Years [...] Department Care Team (Late Contact Info) Description 07/03/2025 1:00 PM EST Office Visit [facility] [address] Floor, [address] [place] [address] Jeniffer Joseph, [facility] [address] [place] [address] 09/13/2025 10:00 AM EST Office Visit [facility] [address] Floor, [address] [place] [address] Roxy Burnette DNP 22 [facility], [address] [place] [address] [email or web address] documented as of this encounter Visit Diagnoses Not on filedocumented in this encounter Care Teams Fire Management Technician Relationship Specialty Start Date End Date Richard Castro MD [address] [place] [address] [place] [address] PCP - General 06/02/17 documented as of this encounter Additional Source Comments The information contained in this document represents components of the legal health record. It is not the complete legal health record.[facility]
--- OUTSIDE RECORDS SUMMARY | 2025-06-12 09:58 | XMS_ITS | Patient Health Record ---
Author Organization Richard Castro MD Address [address] [place], [place] [address] Care Team Providers Care Passport Application Examiner Name Role Phone Richard Castro Primary Care Provider Allergies No Known Allergies Results Component Value Reference Range Notes Complete Blood Count Auto Di ff Reviewed date:07/03/2024 08:00:30 PM Interpretation: Performing Lab:[facility], [address] [place] [phone] Notes/Report: White Blood Count 7.5 4.8-10.8 X10*3/uL [...] NRBC Abs Auto 0.000 0.0-0.012 X10*3/uL Comprehensive Vincent. Panel Fa st Reviewed date:07/03/2024 08:16:51 PM Interpretation: Performing Lab:[facility], [address] [place] [phone] Notes/Report: Sodium 138 135-145 mmol/L Potassium 4.1 [...] Panel Reviewed date:07/03/2024 08:01:49 PM Interpretation: Performing Lab:[facility], [address] [place] [phone] Notes/Report: Triglycerides 98 <150 mg/dL Desirable Triglyceride: [...] date:07/17/2024 04:52:07 PM Interpretation:see back 07-17-2024 Performing Lab:[facility], [address] [place] [phone] Notes/Report: PSA,Total (Free>4and<10) 5.94 0.00-4.00 ng/mL PSA methodology: Burgess Alinity i Chemiluminescent Microparticle Immunoassay (CMIA) UA ClnCatch+Micro w/rflx Cul t Reviewed date:07/03/2024 08:03:57 PM Interpretation: Performing Lab:[facility], [address] [place] [phone] Notes/Report: Urine, Clean Catch Color Urine Yellow Appearance Urine Clear PH 5.5 5.0-9.0 Glucose Urine UA Negative Negative mg/dL Urine Blood Negative Negative Specific [place] - Urine 1.015 1.005-1.025 Urine Protein Negative [...] ff Reviewed date:12/24/2024 05:16:55 PM Interpretation: Performing Lab:[facility], [address] [place] [phone] Notes/Report: White Blood Count 8.2 4.8-10.8 X10*3/uL [...] Panel Reviewed date:12/24/2024 05:16:08 PM Interpretation: Performing Lab:[facility], [address] [place] [phone] Notes/Report: Sodium 137 135-145 mmol/L Potassium 4.2 [...] date:07/23/2024 08:09:01 AM Interpretation:cback psa 07/17 Performing Lab:[facility], [address] [place] [phone] Notes/Report: Prostate Specific Ag Total 6.2 < [...] 30 93 9 (3)Catalona et al.:MICHI 277: 4537-5062 (1996) (4)Catalona et al.:MICHI 279: 2319-6660 (1997) (x)These estimates vary with age, ethnicity, [...] of disease. THIS TEST WAS PERFORMED AT: [facility] [address] [place] [phone] CLAUS SEALS MD Free Prostate Spec Ag 1.3 CT shoulder RT wo con Reviewed date:12/19/2024 05:35:49 PM Interpretation: Performing Lab: Notes/Report: [place] [address] [address] Scan Report Signed Patient: Joselito Hurd MR#: [id number] : 1950 Acct:[id number] Age/Sex: 74 / M ADM Date: 12/17/24 Loc: HO.CT Attending Dr: Js Marquez PA-C Ordering Physician: Js Marquez PA-C Date of Service: 12/17/24 Procedure(s): CT shoulder RT wo IV con Accession Number(s): [id number] cc: Richard Castro MD; Js Marquez PA-C Report Number: [id number]: Total DLP = 283.00 mGy-cm CLINICAL HISTORY: [...] in OV> 12/19/[address] DD/ 2 TD/TT: 12/19/24912 Development Educator: [place] [address] CT Scan Report Signed Patient: Flavia Hurd Sr MR#: [id number] : 1950 Acct:[id number] Age/Sex: 74 / M ADM Date: 12/17/24 Loc: HO.CT Attending Dr: Justino Marquez PA-C Ordering Physician: Js Marquez PA-C Date of Service: 12/17/24 Procedure(s): CT staci obrien RT wo IV con Accession Number(s): [id number] cc: Richard Castro MD; Js Marquez PA-C [...] in OV> 12/19/24913 DD/ 2 TD/TT: 12/19/24912 Development Educator: MRSA Nasal Screen Reviewed date:01/29/2025 05:00:18 PM Interpretation: Performing Lab:[facility], [address] [place] [phone] Notes/Report: MRSA Nasal PCR NEGATIVE Negative SA Nasal PCR NEGATIVE Negative MRSA Interpretation SEE NOTE MRSA target DNA not detected; SA target DNA not detected. A MRSA NEGATIVE, SA NEGATIVE test result does not preclude MRSA or SA nasal colonization. Complete Blood Count Auto Di ff Reviewed date:02/21/2025 05:04:30 PM Interpretation: Performing Lab:[facility], [address] [place] [phone] Notes/Report: White Blood Count 5.4 4.8-10.8 X10*3/uL [...] Panel Reviewed date:02/21/2025 04:13:13 PM Interpretation: Performing Lab:[facility], [address] [place] [phone] Notes/Report: Sodium 138 135-145 mmol/L Potassium 4.5 [...] Screen Reviewed date:02/21/2025 04:00:33 PM Interpretation: Performing Lab:[facility], [address] [place] [phone] Notes/Report: Spec expiration changed by ARPITA on 02/21/25 Reason: PAT NURSING: Call Blood Bank (ext. [phone]) to band patient on admission. Type and Screen in effect until 2300 on 02/26/25 Witnessed by [facility] Blood Type AP Antibody Screen NEGATIVE Hemoglobin and Hematocrit Reviewed date:02/26/2025 12:28:58 PM Interpretation: Performing Lab:[facility], [address] [place] [phone] Notes/Report: Hemoglobin 13.7 14.0-18.0 g/dl Hematocrit 40.8 42.0-52.0 % Pathology Reviewed date:02/28/2025 05:07:11 PM Interpretation: Performing Lab:[facility], [address] [place] [phone] Notes/Report: ------ Name: Joselito Hurd Sr Age/Sex: 75/M : 1950 Unit#: [id number] Attend Dr: Clint Thomas MD Re02/26/25 Status : [facility] Location: [facility] Disch: ------ SPEC : [id number] RECD : 02/27/25 STATUS: EARNEST WALLER NUM: [id number] KRISTINA: 02/26/25-14[address] [facility] [address]: Clint Thomas MD ENTERED: 02/27/25 52 [...] yet, brittle, tapia-yellow with yellow-pink bone marrow. Manager Lan secti ons are submitted in a cassette labeled A1 following decalcification. CEDS IHC S/NG Disclaimer NOTE: Unless otherwi se stated, all tissue is formalin-fixed and paraffin-embedded. Some or all of the immunohistochemical tests reported herein may have been developed and their performance characteristics determined by [facility]. They have not been cleared or appr saima by the U.S. Food and Drug Administration (FDA). However, the FDA has determined that such clearance or approval is not necessary. This laboratory is certified under the Clinical Laboratory Improvement Amendments of 1988 (CLIA) as qualified to perform high comp lexity clinical laboratory testing. Copies To: Richard Castro MD [facility] [address] [place] [id number] CONTINUED ON NEXT PAGE ------ Name: Joselito Hurd Sr Age/Sex: 75/M : 1950 Unit#: [id number] Attend Dr: Clint Thomas MD Re02/26/25 Status : [facility] Location: [facility] Disch: ------ SPEC : [id number] RECD : 02/27/25 STATUS: MARYJazlyn SRIDHAR NUM: [id number] KRISTINA: 02/26/25-9 [facility] [address]: Clint Thomas MD ENTERED: 02/27/25 52 SP TYPE: Surgical OTHR DR: Richard Castro MD ORDERED: Gross Micro L3, Decal Copies To: (Continued) Clint Thomas MD [facility] [address] [place] [address] [address] [place] [address] ------ Signed (signature on file) Leon Keene MD 02/28/25 1146 ------ END OF REPORT XR shoulder RT 1V Reviewed date:02/26/2025 05:10:31 PM Interpretation: Performing Lab: Notes/Report: [address] [address] XRay Report Signed Patient: Joselito Hurd Sr MR#: [id number] : 1950 Acct:[id number] Age/Sex: 75 / M ADM Date: 02/26/25 Loc: .S3 345-[address]: Clint Thomas MD Ordering Physician: Js Marquez PA-C Date of Service: 02/26/25 Procedure(s): XR shoulder RT 1V Accession Number(s): [id number] cc: Richard Castro MD; Js Marquez PA-C [...] 02/26/25 1702 DD/ 1539 TD/TT: 02/26/25 1642 Development Educator: [address] [address] XRay Report Signed Patient: Flavia Hurd Sr MR#: [id number] : 1950 Acct:[id number] Age/Sex: 75 / M ADM Date: 02/26/25 Loc: .S3 345-[address]: Clint ellison MD Ordering Physician: Js Marquez PA-C Date of Service: 02/26/25 Procedure(s): XR staci ulder RT 1V Accession Number(s): [id number] cc: Richard Castro MD; Js Marquez PA-C [...] 02/26/25 1702 DD/ 1539 TD/TT: 02/26/25 1642 Development Educator: Complete Blood Count Auto Di ff Reviewed date:02/27/2025 04:10:37 PM Interpretation: Performing Lab:[facility], [address] [place] [phone] Notes/Report: White Blood Count 11.9 4.8-10.8 X10*3/uL [...] g Reviewed date:02/27/2025 04:01:26 PM Interpretation: Performing Lab:[facility], [address] [place] [phone] Notes/Report: Sodium 136 135-145 mmol/L Potassium 4.2 [...] Problem Status W/U Status Risk Notes Problem 631773598 Neuropathy (G62.9) Active confirmed Problem 64186327 Prostatism (N40.0) Active confirmed Problem 883769677 Paroxysmal atria l fibrillation (I48.0) Active confirmed Problem 216417603 Essential tremor (G25.0) Active confirmed Problem 821017242285411 Erectile dysfunc tion due to arterial insufficiency (N52.01) Active confirmed Problem 22550353 Mitral valve dis order (I05.9) Active confirmed Problem Pure hypercholesterolemia (701834720) Elevated LDL cholesterol level (E78.0) Active confirmed Problem 721219259 Non-rheumatic mi tral regurgitation (I34.0) Active confirmed Problem 021626819 Pure hypercholesterolemia (E78.00) Active confirmed Problem 590170857 Elevated PSA (R97.20) Active confirme d Problem 363860305 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 confirmed Problem 76376138 Hydronephrosis 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) Active confirmed Problem 485779792 Elevated serum cholesterol (E78.9) Active confirmed Problem 100587899 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 Vital Signs Blood pressure diastolic 70 mm Hg 12/24/2024 Height 70.50 in 12/24/2024 Blood pressure systolic 118 mm Hg 12/24/2024 Weight 200 lbs 12/24/2024 BMI 28.29 kg/m2 12/24/2024 Encounters Encounter Location Date Provider Diagnosis Richard Castro MD [address] [place] [phone] 07/03/2024 Richard Castro Elevated PSA R97.20 ; Encounter for immunization Z23 and Pure hypercholesterolemia E78.00 Richard Castro MD [address] [place] [phone] 07/17/2024 Richard Castro Essential tremor G25 .0 ; Pure hypercholesterolemia E78.00 ; Elevated PSA R97.20 ; Paroxysmal atrial fibrillation I48.0 ; Colon cancer screening Z12.11 and Depression screening Z13.31 Richard Castro MD [address] [place] [phone] 12/24/2024 Richard Castro Mass in neck R22.1 ; Right shoulder pain, unspecified chronicity M25.511 and Preop examination Z01.818 Richard Castro MD [address] [place] [id number] 01/15/2025 Richard Castro MD [address] [place] [phone] 02/28/2025 Richard Castro Assessments Encounter Date Diagnosis (ICD Code) Assessment Notes Treatment Notes Treatment Clinical Notes Section Notes 07/03/2024 Elevated PSA (ICD-10 - R97.20) 07/03/2024 Encounter for immunization (ICD-10 - Z23) 07/17/2024 Essential tremor (ICD-10 - G25.0) 07/17/2024 Pure hypercholesterolemia (ICD-10 - E78.00) 12/24/2024 Mass in neck (ICD-10 - R22.1) THE ORDER WAS FAXED TO [facility], pending diagnsotic testing [...] his shoulder surgery if cleared by his tactical debriefer 07/17/2024 Paroxysmal atrial fibrillation (ICD-10 - I48.0) have warned him of the risk of stroke and he should be on anticoag. he is going to think about it and get back to me or maybe wait/ get last note from [facility] 07/17/2024 Colon cancer screeni ng (ICD-10 - Z12.11) guaiac negative 07/17/2024 Depression screening (ICD-10 - Z13.31) negative screen Plan Of Treatment Pending Test Test Name Order Date US RENAL BILATERAL 07/17/2020 US RENAL BILATERAL 07/24/2020 US soft tiss head and/or neck 12/24/2024 Future Test Test Name Order Date US RENAL BILATERAL 07/29/2021 Next Appt Details Provider Name:Richard Chatman ier, 07/05/2025 07:30:00 AM, [address] [place] [address], [address], [phone], Provider Name:Richard Chatman ier, 07/18/2025 01:00:00 PM, [address] [place] [address], [place] [address], [place], [place], [phone], Insurance Providers Payer Name Payer Address Payer Phone Subscriber Number Group Number Insured Name Patient Relationship to Insured Coverage Start Date Coverage End Date [employer] [address] [place] [address] [id number] Joselito Hurd Self - patient is the insured MEDEX BCBS OF [facility] [address] [place] [address] [phone] [id number] Joselito Hurd Self - patient is the [...]
--- OUTSIDE RECORDS SUMMARY | 2025-06-12 09:58 | XMS_ITS | Patient Health Record ---
Author Organization [facility] Address [address] [place] [address] Care Team Providers Care Evaluation Assistant Name Role Phone Richard Castro MD Primary Care Provider Carin Fall Jr Jaziel Unavailable Reason For Referral No Information Medications Medication SIG (Take, Route, Frequency, Duration) Notes Start Date End Date Status dilTIAZem HCl 120 MG 1 tablet before nils ls Orally QD 07/26/2014 Active Flecainide Acetate 50 MG 1 tablet Orally every 12 hrs Active Aspir-81 Active Suprep Bowel Prep 1 as directed Orally 1 ; Duration: 1 dose 07/26/2014 Active Problems Problem Type SNOMED Code ICD Code Onset Dates Problem Status W/U Status Risk Notes Problem Hemorrhoids (81982948) Hemorrhoids (455.6) Active confirmed Problem Colon cancer screening (261487685) Colon cancer screening (V76.51) Active confirmed Problem Feces contents abnormal (228757712) Abnormal findings in stool (792.1) Active confirmed Plan Of Treatment Future Test Test Name Order Date COLONOSCOPY 07/26/2014 Insurance Providers Payer Name Payer Address Payer Phone Subscriber Number Group Number Insured Name Patient Relationship to Insured Coverage Start Date Coverage End Date [facility] [address] [address] [place] [address] [id number] ROOSEVELT SAMUELS Self - patient is the insured MEDICARE OF [place] [address] [place] [address] [id number] ROOSEVELT SAMUELS Self - patient is the insured Medical (General) History Medical History History ICD Code lymphoma Atrial fibrillation mitral valve prolapse Surgical History Surgery Date(Month/Year) lymphectomy 1 node under arm 2010
--- OUTSIDE RECORDS SUMMARY | 2025-06-12 09:59 | XMS_ITS | Encounter Summary ---
Author Organization [facility] Address [address] [facility] [address] [place] [address] Phone Care Team Providers Care Navigation Officer Name Role Phone Richard Castro MD Primary Care Provider Encounter Details Date Type Department Care Team (Late st Contact Info) Description 12/12/2020 Procedure Pass Echo Lab [address] [place] [address] Social History Tobacco Use Types Packs/Day Years [...] Description 07/03/2025 1:00 PM EST Office Visit [facility] [address] Floor, [address] [place] [address] Jeniffer Joseph DNP [address] [place] [address] 09/13/2025 10:00 AM EST Office Visit [facility] [address] Floor, [address] [place] [address] Roxy Burnette DNP [address] [facility] [address] [place] [address] [email or web address] documented as of this encounter Visit Diagnoses Not on filedocumented in this encounter Care Teams Navigation Officer Relationship Specialty Start Date End Date Richard Castro MD [address] [place] [address] Dr CHASE [address] [place] [address] PCP - General 06/02/17 documented as of this encounter Additional Source Comments The information contained in this document represents components of the legal health record. It is not the complete legal health record.[facility]
== END 2025-06-12 10:46 | disposition home or self-care (01) ==
LOC: HO.HOS 08:57
PROVIDERS: PCP Internal Medicine; Visit Provider Physician Assistant
DX: Z47.89 Encounter for other orthopedic aftercare (principal); Z96.611 Presence of right artificial shoulder joint; R22.31 Localized swelling, mass and lump, right upper limb
CPT/HCPCS: 20610; 99213

== ENCOUNTER → 2025-06-12 08:59 | Outpatient (BNV) | payer MEDICARE, SELFPAY | PROVIDERS: Visit Provider Radiology Diagnostic Radiology | DX: M25.511 Pain in right shoulder (principal); Z96.611 Presence of right artificial shoulder joint | CPT/HCPCS: 73030 ==

== ENCOUNTER 2025-06-13 10:33 | Outpatient (REF) | payer MEDICARE, SELFPAY | END 2025-06-13 10:34 | disposition home or self-care (01) | LOC: HO.LNP 10:33 | PROVIDERS: PCP Internal Medicine; Visit Provider Orthopaedic Surgery | DX: R22.31 Localized swelling, mass and lump, right upper limb (principal); Z96.611 Presence of right artificial shoulder joint | CPT/HCPCS: 20610; 87070; 87073; 87076; 87185; 87205; 99212; J2003 ==

== ENCOUNTER 2025-06-13 10:33 | Outpatient (AMB) | payer MEDICARE, SELFPAY ==
--- NOTE | 2025-06-13 10:36 | A.OFFVIS_ITS ---
Intake Visit Reasons: OV- R RTSA, DOS 02/26/25 Intake Note: Joselito is a 75 year old left hand dominant male who presents today for a follow up of his right shoulder s/p Right Reverse TSA 02/26/25. He was seen with Js Marquez yesterday in clinic for concerns of a mass on the anterior aspect of the shoulder. The mass was aspirated, but no fluid was drawn. He was instructed to apply heat to the area for 20 minutes 4x a day to try an loosen up the mass. Allergies No Known Allergies (No Known Allergies*) Allergy (Verified 06/12/25 09:07) HPI HPI OV- R RTSA, DOS 02/26/25: Details: Joselito is a 75 year old left hand dominant male who presents today for a follow up of his right shoulder s/p Right Reverse TSA 02/26/25. Patient was doing well without pain. He was working with [employer] outside and feels like he may have irritated his shoulder and started to have some redness over the incision. This progressively worsened and he comes in with fluctuance over the anterior portion of the incision. 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) Acute UTI Sepsis Calculus, renal Hydronephrosis Surgical History S/P right rotator cuff repair Hx of colonoscopy Hx of repair of right rotator cuff (~2014) History of left inguinal hernia repair (~2020) History of right inguinal hernia repair (08/28/18) History of bilateral inguinal hernia repair (06/28/17) History of arthroscopy of left knee Family History Father Throat cancer Mother Melanoma Leukemia Social History Household Members: Spouse and Children Housing: House Are you a primary occasional caregiver to a significant other at home: No Do you presently have visiting nurse or other home services: No 75 years or older and lives alone: No Comment: hematoma right thigh, resolved no fracture with 12/2024 fall, no head strike Patient Tobacco Use Status: Former Tobacco user Tobacco use type: Cigarette service: Yes Current occupational status: retired Physical Exam Exam Exam: Pleasant gentleman in no acute distress There is a fluctuant mass over the anterior portion of the incision size of a l liliana. He has no pain with 30 degrees of external rotation or 90 degrees of abduction. Office Procedures Joint Inj/Aspir; Non-Pain Clin Joint Injection/Drain Details: I aspirated 5 mL of serosanguineous fluid with necrotic material from the fluctuant mass over the incision on his right shoulder. Prep: site was prepped using aseptic technique Approach Used: anterior Procedure: The patient tolerated the procedure well Shoulders, Hips, Knees, Shoulder Injection Large joint : Right Shoulder Coding Procedure code (CPT) selection complete Assessment & Plan Assessment & Plan (1) Status post reverse total arthroplasty of right shoulder: Code(s): Z96.611 - Presence of right artificial shoulder joint Category: Surgical Plan: I aspirated suspicious looking fluid and put Joselito on doxy. He is on blood thinners and he will stop those Tuesday as I suspect we will need to consider staged surgery soon. Orders: Orders Routine Culture w Gram Stain 06/13/25 Z96.611 - Presence of right artificial shoulder joint Medications: New doxycycline hyclate 100 mg PO BID 42 tabs 0RF 21 days Coding Level of Care Code Est Pt Level 3 (61905) Diagnoses Status post reverse total arthroplasty of right shoulder Z96.611 CPT Codes Shoulders, Hips, Knees, - Shoulder Injection Large joint : Right Shoulder ([id number])
--- OUTSIDE RECORDS SUMMARY | 2025-06-13 12:53 | XMS_ITS ---
Author Name Andres Hsieh Address Unknown Organization [facility] Care Team Providers Care University Administrator Name Role Phone Unavailable Primary Care Physician Unavailab le History Of Present Illness This is a 75 year old male who is an established patient who is being seen for an evaluation of skin lesions, located on the body throughout. He also presents for education and counseling about sun exposure, evaluation for suspicious growths, evaluation of current nevi, surveillance against skin cancer recurrences, and surveillance against the recurrence of atypical nevi. His history is significant for actinic keratoses, basal cell skin cancer , dysplastic nevi, family history of melanoma (Mother and aunt), and melanoma - Back, removed in Dr. Miranda 1999???s. Spot on his right ankle notice beginning of this summer enlarging. Medications Medication Generic Name RxNorm Strength Strength Unit Route Dose Dose Form Frequency Date Started Date Ended Status Indication Sig ketoconazol e ketocona zole 514721 2 % Topica l cream 02/20/20 21 suspend ed Appl y twic e nilton y to feet for two week s PRN. mupirocin mupiroci n 913850 2 % Topica l ointm ent 02/12/20 20 suspend ed Appl y twic e a day to all biop sy site s unti l heal ed. diltiazem HCl diltiaze m HCl 120 mg Oral 1 table t qd active flecainide flecaini de 814295 150 mg Oral 1 table t bid 04/19/20 18 active propranolol proprano lol 157764 80 mg Oral 1 table t qd-prn 04/19/20 18 active tamsulosin tamsulos in 0.4 mg Oral 1 capsu le qd active Xarelto rivaroxa ban 20 mg Oral 1 table t qd active Amoxicillin NULL 07/13/20 18 active Aspir-81 NULL 04/19/20 18 suspend ed Cartia XT NULL 07/13/20 18 active Cephalexin NULL 08/03/20 18 active Flecainide Acetate NULL 07/13/20 18 suspend ed Indomethaci n NULL 07/13/20 18 active oxyCODONE HCl NULL 07/13/20 18 active Primidone NULL 07/13/20 18 active Propranolol HCl ER NULL 07/13/20 18 active Staxyn NULL 07/13/20 18 active Sulfamethox azole-Trime thoprim NULL 07/13/20 18 active Problems Problem Code Type Status Date of Diagnosis Da te of Resolution Neoplasm of uncertain behavior of skin (disorder) 90156454(SNO MED) Diagnosis active 06/13/2025 History of malignant melanoma of the skin (situation) 807064516566 (SNOMED) Diagnosis active 06/13/2025 History of malignant neoplasm of skin (situation) 816223966(SN OMED) Diagnosis active 06/13/2025 Melanocytic nevus of trunk (disorder) 449486307(SN OMED) Diagnosis active 06/13/2025 Disorder of pigmentation (disorder) 800373041(SN OMED) Diagnosis active 06/13/2025 Seborrheic keratosis (disorder) 461574283(SN OMED) Diagnosis active 06/13/2025 Onychomycosis caused by dermatophyte (disorder) 157769239(SN OMED) Diagnosis active 06/13/2025 Scar conditions and fibrosis of skin (disorder) 505516770(SN OMED) Diagnosis active 06/13/2025 History of malignant neoplasm of skin (situation) 163917057(SN OMED) Diagnosis active 06/07/2024 History of malignant melanoma of the skin (situation) 629333006973 (SNOMED) Diagnosis active 06/07/2024 Melanocytic nevus of trunk (disorder) 614655970(SN OMED) Diagnosis active 06/07/2024 Disorder of pigmentation (disorder) 540360956(SN OMED) Diagnosis active 06/07/2024 Seborrheic keratosis (disorder) 645976384(SN OMED) Diagnosis active 06/07/2024 History of malignant neoplasm of skin (situation) 071603255(SN OMED) Diagnosis active 06/02/2023 History of malignant melanoma of the skin (situation) 011263071929 (SNOMED) Diagnosis active 06/02/2023 Melanocytic nevus of trunk (disorder) 681497758(SN OMED) Diagnosis active 06/02/2023 Disorder of pigmentation (disorder) 302861593(SN OMED) Diagnosis active 06/02/2023 Seborrheic keratosis (disorder) 640778159(SN OMED) Diagnosis active 06/02/2023 History of malignant neoplasm of skin (situation) 281172727(SN OMED) Diagnosis active 04/08/2022 History of malignant melanoma of the skin (situation) 361238610510 (SNOMED) Diagnosis active 04/08/2022 Melanocytic nevus of trunk (disorder) 923732792(SN OMED) Diagnosis active 04/08/2022 Disorder of pigmentation (disorder) 174569202(SN OMED) Diagnosis active 04/08/2022 Seborrheic keratosis (disorder) 850032500(SN OMED) Diagnosis active 04/08/2022 Neoplasm of uncertain behavior of skin (disorder) 21065757(SNO MED) Diagnosis active 02/19/2021 Actinic keratosis (disorder) 384708112(SN OMED) Diagnosis active 02/19/2021 Tinea pedis (disorder) 5154086(SNOM ED) Diagnosis active 02/19/2021 Melanocytic nevus of trunk (disorder) 251871734(SN OMED) Diagnosis active 02/19/2021 Hemangioma of skin and subcutaneous tissue (disorder) 679109282(SN OMED) Diagnosis active 02/19/2021 Disorder of pigmentation (disorder) 929732749(SN OMED) Diagnosis active 02/19/2021 Seborrheic keratosis (disorder) 793577424(SN OMED) Diagnosis active 02/19/2021 Benign neoplasm of skin of left lower limb (disorder) 498672343647 9109(SNOMED) Diagnosis active 02/19/2021 Onychomycosis caused by dermatophyte (disorder) 546847390(SN OMED) Diagnosis active 02/19/2021 Disorder of skin (disorder) 25791337(SNO MED) Diagnosis active 02/19/2021 Melanocytic nevus of face (disorder) 361510095(SN OMED) Diagnosis active 02/19/2021 Skin changes due to chronic exposure to non-ionizing radiation (disorder) 690197002(SN OMED) Diagnosis active 02/19/2021 History of malignant melanoma of the skin (situation) 170646323137 (SNOMED) Diagnosis active 02/19/2021 History of malignant neoplasm of skin (situation) 869305638(SN OMED) Diagnosis active 02/19/2021 Encounter for surgical aftercare following surgery on the skin and subcutaneous tissue Z48.817(ICD- 10) Diagnosis active 05/08/2020 Encounter for surgical aftercare following surgery on the skin and subcutaneous tissue Z48.817(ICD- 10) Diagnosis active 05/01/2020 Basal cell carcinoma of skin of right lower limb, including hip C44.712(ICD- 10) Diagnosis active 04/24/2020 Basal cell carcinoma of skin of right lower limb, including hip C44.712(ICD- 10) Diagnosis active 03/21/2020 Neoplasm of uncertain behavior of skin D48.5(ICD-10 ) Diagnosis active 02/12/2020 Actinic keratosis L57.0(ICD-10 ) Diagnosis active 02/12/2020 Other seborrheic keratosis L82.1(ICD-10 ) Diagnosis active 02/12/2020 Melanocytic nevi of trunk D22.5(ICD-10 ) Diagnosis active 02/12/2020 Hemangioma of skin and subcutaneous tissue D18.01(ICD-1 0) Diagnosis active 02/12/2020 Disorder of the skin and subcutaneous tissue, unspecified L98.9(ICD-10 ) Diagnosis active 02/12/2020 Other follicular cysts of the skin and subcutaneous tissue L72.8(ICD-10 ) Diagnosis active 02/12/2020 Other benign neoplasm of skin of left lower limb, including hip D23.72(ICD-1 0) Diagnosis active 02/12/2020 Personal history of malignant melanoma of skin Z85.820(ICD- 10) Diagnosis active 02/12/2020 Senile hyperkeratosis (disorder) 499009365(SN OMED) Diagnosis active 02/07/2019 Melanocytic nevus of trunk (disorder) 640004927(SN OMED) Diagnosis active 08/03/2018 Personal history of other drug therapy Z92.29(ICD-1 0) Diagnosis active 07/13/2018 Benign neoplasm of skin of trunk (disorder) 00542403(SNO MED) Diagnosis active 07/13/2018 Malignant melanoma of trunk (disorder) 675205557(SN OMED) Diagnosis active 04/26/2018 Other specified health status Z78.9(ICD-10 ) Diagnosis active 04/19/2018 Hearing loss (disorder) 71069695(SNO MED) Problem active Atrial fibrillation (disorder) 44745431(SNO MED) Problem active Actinic keratosis (disorder) 103600894(SN OMED) Problem active Basal cell carcinoma of skin (disorder) 107148720(SN OMED) Problem active Malignant melanoma (disorder) 000595932(SN OMED) Problem active Results No data Encounters Service provided at [facility], [address] [place] [address], [address], [place], [place] [id number]. Office phonenumber is [phone]. Office fax number is [phone]. Encounter Diagnosis Location Date / Time Type History of malignant melanom a (Z85.820)History of Basal Cell Carcinoma (Z85.828)Benign Nevi (D22.5)Lentigines (L81.4)Seborrheic Keratoses (L82.1)Onychomycosis (B35.1)Scar (L90.5)Neoplasm of Uncertain Behavior (D48.5) [facility] 06/13/2025 13:30:00 [place] [address] Reason For Referral No data Procedures Procedure Date Documentation of current medications (pr ocedure) 06/13/2025 12:00 am UTC Shave biopsy (procedure) 06/13/2025 12:0 0 am UTC Cryotherapy of skin lesion with liquid n itrogen (procedure) 02/19/2021 12:00 am UTC Shave biopsy (procedure) 02/19/2021 12:0 0 am UTC Mohs surgery (procedure) 04/24/2020 12:0 0 am UTC Cryotherapy of skin lesion with liquid n itrogen (procedure) 02/12/2020 12:00 am UTC Shave biopsy (procedure) 02/12/2020 12:0 0 am UTC Documentation of past medical history (p rocedure) Documentation of past medica l history (procedure) Right shoulder replacement 02/26/25 Review Of Systems Provider reviewed on Jun 13, 2025.A focused review of systems was performed including Hematologic /Lymphatic and Integumentary and was notable for problems with bleeding.No Problems With Healing AndNo Problems With Scarring (hypertrophic Or Keloid). Assessment 1.Neoplasm of Uncertain BehaviorBiopsy by Shave Method: right superior medial midback.2.History of malignant melanomaCounseling3.History of Basal Cell CarcinomaCounselingAdditional NotesPhoto-Documentation:.4.Benign NeviCounseling5.LentiginesCounseling6.Seborrheic KeratosesCounseling7.OnychomycosisCounseling8.ScarAdditional Notes Plan of Care Future visit for 06/13/2026 - Follow up in 1 year for: Skin Check Code Detail Instructions 144278 ketoconazole 2 % topical cream A pply twice daily to feet for two weeks PRN. 864544 mupirocin 2 % topical ointment A pply twice a day to all biopsy sites until healed. Instructions * I counseled the patient regarding the following:Skin Care: Patients with a history of melanoma should wear broad spectrum sunscreen and sun protective clothing.Expectations: Scars from excisional sites of melanoma should be monitored for any recurrences. Monthly self-skin checks should be performedto monitor for any moles that change in size, shape or color, itch burn or bleed.Contact Office if:Patient notices any new or changing moles, develops constitutional symptoms or develops new lesionswithin or around the previous melanoma scar. * I counseled the patient regarding the following:Skin Care: Patients with a history of non-melanoma skin cancer should wear broad spectrum sunscreen and sun protective clothing.Expectations: Scars from excisional sites of non- melanoma skin cancers should be monitored for any recurrences.Contact Office if: If the patient notices discoloration or a bump arising from a previously stable scar or any new lesions that are not healing.I recommended the following: Sunscreen * I counseled the patient regarding the following:Instructions: Monthly self- skin checks to monitor for any changes in moles are recommended.Expectations: Benign Nevi are pigmented nests of cells within the skin. No treatment is necessary.Contact Office if: Any moles change in size, shape or color; itch, burn or bleed. * I counseled the patient regarding the following:Skin Care: Lentigines can improve with broad spectrum sunscreen, sun avoidance, bleaching creams, retinoids, chemical peels and laser.Expectations: Lentigines are benign pigmented lesions that occur on sun-exposed and sun-damaged skin.I recommended the following: Sunscreen * I counseled the patient regarding the following:Skin Care: Seborrheic Keratoses are benign. No treatment is necessary.Expectations: Seborrheic Keratoses are benign warty growths. Patients get more ofthem as they age. Please call with any changes or concerns. * I counseled the patient regarding the following:Skin care: Onychomycosis rarely responds to prolonged use of topical anti-fungal agents. Oral antifungal agents offer a higher cure rate, but relapses occur in 50% of patients.Expectations: Onychomycosis is a fungal infection of the nail plate. Oral therapy is more effective than topical therapy, but serious side effects such as liver toxicity, bonemarrow depression and severe rashes may ensue with systemic treatment. Social History Code Activity Start Date End Date [id number] (t-Art) Former smoker 06/07/1975 Sex male Sexual orientation Unspecified Gender identity Unspecified Vital Signs No data
== END 2025-06-13 11:13 | disposition home or self-care (01) ==
LOC: HO.HOS 10:34
PROVIDERS: PCP Internal Medicine; Visit Provider Orthopaedic Surgery
DX: R22.31 Localized swelling, mass and lump, right upper limb (principal); Z96.611 Presence of right artificial shoulder joint
CPT/HCPCS: 20610; 99213

== ENCOUNTER 2025-06-18 10:03 | Outpatient (AMB) | payer MEDICARE, SELFPAY ==
--- NOTE | 2025-06-18 10:26 | MHC.OFFVIS ---
Vital Signs 06/18/25 10:29 Height 5 ft 11 in Weight 200 lb BMI 27.9 Handedness Left Intake Visit Reasons: Pre op - right shoulder debridement Intake Note: Joselito is a 75 year old left hand dominant male who presents today for a pre op appointment for his RT shoulder I&D 06/19/25 NE. Patient was given the pain management agreement form to be signed. Allergies No Known Allergies (No Known Allergies*) Allergy (Verified 06/18/25 10:39) HPI HPI Pre op - right shoulder debridement: Details: Mr. Vannessa noriega is a 75-year-old right-hand dominant male who presents to the office today for history and physical examination pending right shoulder irrigation and debridement to be performed on 06/19/[address] Thomas. Patient is status post right reverse total shoulder arthroplasty performed on 02/26/[address] Thomas. Patient has a past medical history significant for AFib on Xarelto, non-Hodgkin's lymphoma, tremors and a history of a MRSA infection. Patient reports roughly 2 week history of right shoulder irritation, erythema and edema after hedge trimming. He was last seen in our office on 06/13/[address] Thomas who evaluated the patient and recommended irrigation and debridement of the right shoulder. [facility] Medical History Wears hearing aid in both ears [place] (hard of hearing) History of cardioversion BPH (benign prostatic hyperplasia) Hx MRSA infection (07/2018) Tremor Non-Hodgkin lymphoma Afib Hydronephrosis with renal and ureteral calculous obstruction (2019) Acute UTI Sepsis Calculus, renal Hydronephrosis Surgical History S/P right rotator cuff repair Hx of colonoscopy Hx of repair of right rotator cuff (~2014) History of left inguinal hernia repair (~2020) History of right inguinal hernia repair (08/28/18) History of bilateral inguinal hernia repair (06/28/17) History of arthroscopy of left knee Family History Father Throat cancer Mother Melanoma Leukemia Social History Household Members: Spouse and Children Housing: House Are you a primary manager respiratory care to a significant other at home: No Do you presently have visiting nurse or other home services: No Comment: hematoma right thigh, resolved no fracture with 12/2024 fall, no head strike Patient Tobacco Use Status: Former Tobacco user Tobacco use type: Cigarette service: Yes Current occupational status: retired Review of Systems Const All systems reviewed & are unremarkable except as noted in HPI and below Physical Exam Vital Signs: BMI result Body Mass Index 27.9 Extrem Other: Right shoulder fluctuant mass roughly 5 cm in length and 3 cm in width. No active drainage. Mild erythema surrounds the area. No active drainage. No pain with 30 degrees of external rotation or 90 degrees of abduction/forward flexion. NVI. Assessment & Plan Assessment & Plan (1) Status post reverse total arthroplasty of right shoulder: Code(s): Z96.611 - Presence of right artificial shoulder joint Category: Surgical Plan Mr. Hurd this is a 75-year-old right-hand dominant male who presents to the office today for history and physical examination pending right shoulder irrigation and debridement to be performed on 06/19/[address] Thomas. Patient is status post right reverse total shoulder arthroplasty performed on 02/26/[address] Thomas. Patient has a past medical history significant for AFib on Xarelto, non-Hodgkin's lymphoma, tremors and a history of a MRSA infection. Patient reports roughly 2 week history of right shoulder irritation, erythema and edema after hedge trimming. He was last seen in our office on 06/13/[address] Thomas who evaluated the patient and recommended irrigation and debridement of the right shoulder. I discussed the case with Dr. Thomas and explained the extent of the injury to the patient and options available which include surgical intervention. I explained the procedure in detail along with the length of recovery and rehab course. I explained the risk, benefits and alternatives. Risk including, but not limited to infection, blood clots, bleeding, non union or malunion and nerve/tissue damage to surrounding areas, need for further surgery, risks of general anesthesia. I answered all their questions and with their understanding they have consented to move forward with irrigation debridement of right shoulder. Coding Level of Care Code Global (46163) Diagnoses Status post reverse total arthroplasty of right shoulder Z96.611
[2025-06-18 10:29] VITALS: BMI 27.9
== END 2025-06-18 11:16 | disposition home or self-care (01) ==
LOC: HO.HOS 10:03
PROVIDERS: PCP Internal Medicine; Visit Provider Physician Assistant
DX: Z96.611 Presence of right artificial shoulder joint (principal)
CPT/HCPCS: 99024

== ENCOUNTER → 2025-06-18 10:03 | Outpatient (BNVA) | payer MEDICARE, SELFPAY | PROVIDERS: PCP Internal Medicine; Visit Provider Physician Assistant | DX: Z01.818 Encounter for other preprocedural examination (principal); M25.511 Pain in right shoulder; Z96.611 Presence of right artificial shoulder joint | CPT/HCPCS: 99212 ==

== ENCOUNTER 2025-06-19 07:52 | Day surgery (SDC) | payer MEDICARE, SELFPAY ==
--- OUTSIDE RECORDS SUMMARY | 2023-12-22 06:30 | XMS_ITS ---
Author Organization Richard Castro MD Address [address] [place], [place] [id number] Care Team Providers Care Sound Effects Supervisor Name Role Phone Richard Castro Primary Care Provider Allergies No Known Allergies Reason For Referral Reason acute pain of right shoulder Diagnosis 1 Acute pain of right shoulder (M25.511) Referral Organization Richard Castro MD Referring Provider First Name Richard Referring Provider Last Name Gloria Referring Provider Speciality Internal M edicine Referred Provider Clint Thomas Referred Provider Specialty Orthopedic S urgery General Notes Ana Broussard 11:53:13 AM EDT > info faxed they will call patient with an appt , Desiare Simpson 01/02/2024 08:46:44 AM EDT > OFFICE NOTE RECD Referral Priority Routine Referral Appointment Date 12/26/2023 REASON FOR VISIT patient fell yesterday.right shoulder pain, NO Covid symptoms Medications Medication SIG (Take, Route, Frequency, Duration) Notes Start Date End Date Status Ibuprofen 800 MG 1 tablet with food o r milk as needed Orally Three times a day for 30 days 02/27/2019 Not-Taking Staxyn 10 MG 1 tablet on the tongue and allow to dissolve as needed Orally Once a day Not-Taking Indomethacin 50 MG 1 capsule with food or milk Orally Three times a day for 10 days 10/07/2016 Not-Taking Cyclobenzaprine HCl 5 MG 1 tablet as nee ded Orally Three times a day for 10 days 02/27/2019 Not-Taking Amoxicillin 500 MG 1 capsule Orally every 8 hrs for 10 day(s) 05/15/2018 Not-Taking Valtrex 1 GM 1 tablet Orally 3 times a day for 7 days 01/13/2021 Not-Taking Tylenol Extra Strength 500 MG 3 tablets orally every 6 hrs Not-Taking Tamsulosin HCl 0.4 MG 1 capsule Orally O nce a day Active Propranolol HCl ER 80 MG TAKE ONE CAPSUL E BY MOUTH ONCE DAILY for 30 Active Flecainide Acetate 150 MG 1 tablet Orall y every 12 hrs Active Co Q 10 100 MG 1 capsule with a nils l Orally Once a day Active Cartia XT 120 MG 1 capsule Orally Onc e a day for 30 day(s) Active Vital Signs Blood pressure systolic 112 mm Hg 12/22/19 24 Blood pressure diastolic 78 mm Hg 024 Height 70.50 in 12/22/2023 Weight 204 lbs 12/22/2023 BMI 28.85 kg/m2 12/22/2023 weight is up 8 pounds since 09-06-23 Encounters Encounter Location Date Provider Diagnosis Richard Castro MD [address] [place] [address] Drive [address] [place], [place] [id number] 12/22/2023 Richard Castro Acute pain of right shoulder M25.511 Assessments Encounter Date Diagnosis (ICD Code) Assessment Notes Treatment Notes Treatment Clinical Notes Section Notes 12/22/2023 Acute pain of right shoulder (ICD-10 - M25.511) had rotator cuff repair in past is concerned that he reinjured it. Plan Of Treatment Treatment Notes Assessment Notes Acute pain of right shoulder had rotator cuff repair in past is concerned that he reinjured it. Referrals Referral Date Details 12/22/2023 12/22/2023, acute pa in of right shoulder , Clint Thomas Next Appt Details Provider Name:Richard Chatman ier, 07/05/2025 07:30:00 AM, [address], [address], [place], [place], [id number], Provider Name:Richard Chatman ier, 07/18/2025 01:00:00 PM, [address], [address], [place], [place], [id number], Progress Notes * Joselito HURD ADOB:[birth year] (73 yo M)Acc No.[id number]:12/22/2023 Progress Notes Patient: Joselito Garcia Provider: Del Castro MD :1950 A ge:73 Y S ex:Male Date:12/22/2023 Address:[address] [place], [place] [id number] Subjective: * Chief Complaints: * P atient fell yesterday.right shoulder painNO Covid symptoms * HPI: F all Risk: History H ave you had any falls with injury in the past year? Y es fell bringing in plants at his daughter's house missed a step landed on right side. S ymptom(s): patient is a 73 yo male here complaining of fall yesterday, going outside missed the step and put arm straight out, now with right shoulder pain. * ROS: G eneral/Constitutional: Denies C hills. D enies F atigue. D enies F ever. D enies H eadache. E NT: Patient denies d ecreased sense of smell , any loss of taste , sore throat. D enies S ore throat. R espiratory: Denies C ough. D enies S hortness of breath at rest. D enies S hortness of breath with exertion. G astrointestinal: Denies D iarrhea. D enies N ausea. M usculoskeletal: Patient denies m uscle aches. P eripheral Vascular: Patient denies r ed and blue toes. * Medical History: * Surgical History: * Hospitalization/Major Diagno stic Procedure: * Medications: T akingCartia XT 120 MG Capsule Extended Release 24 Hour 1 capsule Orally Once a dayCo Q 10 100 MG Capsule 1 capsule with a meal Orally Once a dayFlecainide Acetate 150 MG Tablet 1 tablet Orally every 12 hrsTamsulosin HCl 0.4 MG Capsule 1 capsule Orally Once a dayPropranolol HCl ER 80 MG Capsule Extended Release 24 Hour TAKE ONE CAPSULE BY MOUTH ONCE DAILY Taking Cartia XT 120 MG Capsule Extended Release 24 Hour 1 capsule Orally Once a dayTaking Co Q 10 100 MG Capsule 1 capsule with a meal Orally Once a dayTaking Flecainide Acetate 150 MG Tablet 1 tablet Orally every 12 hrsTaking Tamsulosin HCl 0.4 MG Capsule 1 capsule Orally Once a dayTaking Propranolol HCl ER 80 MG Capsule Extended Release 24 Hour TAKE ONE CAPSULE BY MOUTH ONCE DAILY Not-Taking/PRNValtrex 1 GM Tablet 1 tablet Orally 3 times a dayTylenol Extra Strength 500 MG Tablet 3 tablets orally every 6 hrsIbuprofen 800 MG Tablet 1 tablet with food or milk as needed Orally Three times a dayCyclobenzaprine HCl 5 MG Tablet 1 tablet as needed Orally Three times a dayAmoxicillin 500 MG Capsule 1 capsule Orally every 8 hrsStaxyn 10 MG Tablet Dispersible 1 tablet on the tongue and allow to dissolve as needed Orally Once a dayIndomethacin 50 MG Capsule 1 capsule with food or milk Orally Three times a dayMedication List reviewed and reconciled with the patientNot-Taking/PRN Valtrex 1 GM Tablet 1 tablet Orally 3 times a dayNot- Taking/PRN Tylenol Extra Strength 500 MG Tablet 3 tablets orally every 6 hrsNot-Taking/PRN Ibuprofen 800 MG Tablet 1 tablet with food or milk as needed Orally Three times a dayNot-Taking/PRN Cyclobenzaprine HCl 5 MG Tablet 1 tablet as needed Orally Three times a dayNot-Taking/PRN Amoxicillin 500 MG Capsule 1 capsule Orally every 8 hrsNot-Taking/PRN Staxyn 10 MG Tablet Dispersible 1 tablet on the tongue and allow to dissolve as needed Orally Once a dayNot-Taking/PRN Indomethacin 50 MG Capsule 1 capsule with food or milk Orally Three times a dayMedication List reviewed and reconciled with the patient * Allergies: N .K.D.A.yes[Allergies Verified] Objective: * Vitals: H t: 70.50, Wt:204, BMI:28.85, BP:112/78 weight is up 8 pounds since 09-06-23. * Examination: G eneral Examination: GENERAL APPEARANCE: alert, well hydrated, in no distress . MUSCULOSKELETAL: abnormal marked tendernss to movement of shoulderis able to passively lift arm above head. Assessment: * Assessment: 1. A cute pain of right shoulder - M25.511 (Primary) Plan: * Treatment: * Procedure Codes: * * Sign off status: Completed true * Provider: Del Castro MD Date: 0 12/22/2023 Generated for Per deleon/Amandeep/Maninder on: 08/18/2024 11:25 AM EST History and Physical Notes * HPI (History of Present Illness) Category Sub-Category Detail Notes Category Not es Symptom(s) patient is a 73 yo male here complaining of fall yesterday, going outside missed the step and put arm straight out, now with right shoulder pain Fall Risk History Have you had any falls with injury in the past year?: Yes fell bringing in plants at his daughter's house missed a step landed on right side Examination Category Sub-Category Detail Notes Category Not es General Examination GENERAL APPEARANCE: alert, w ell hydrated, in no distress MUSCULOSKELETAL: abnormal marked tend ernss to movement of shoulderis able to passively lift arm above head Consultation Request Notes Referral Date Referring Provider Referred Provider Not es 12/22/2023 Richard Castro Noah acute pain of right shoulder
--- OUTSIDE RECORDS SUMMARY | 2024-01-23 08:15 | XMS_ITS ---
Author Organization Richard Castro MD Address [address] [place] [phone] Care Team Providers Care Passport Support Manager Name Role Phone Richard Castro Primary Care Provider [phone] Allergies No Known Allergies REASON FOR VISIT COUGHING ONE WEEK, WHEEZING and fatigue, CELL PHONE [phone], WILL TEST FOR COVID THIS MORN, tested for Covid this AM negative Medications Medication SIG (Take, Route, Frequency, Duration) Notes Start Date End Date Status Amoxicillin 500 MG 1 capsule Orally every 8 hrs for 10 day(s) 05/15/2018 Not-Taking Cyclobenzaprine HCl 5 MG 1 tablet as nee ded Orally Three times a day for 10 days 02/27/2019 Not-Taking Ibuprofen 800 MG 1 tablet with food o r milk as needed Orally Three times a day for 30 days 02/27/2019 Not-Taking Indomethacin 50 MG 1 capsule with food or milk Orally Three times a day for 10 days 10/07/2016 Not-Taking Staxyn 10 MG 1 tablet on the tongue and allow to dissolve as needed Orally Once a day Not-Taking Valtrex 1 GM 1 tablet Orally 3 times a day for 7 days 01/13/2021 Not-Taking Propranolol HCl ER 80 MG TAKE ONE CAPSUL E BY MOUTH ONCE DAILY for 30 Active Tamsulosin HCl 0.4 MG 1 capsule Orally O nce a day Active Tylenol Extra Strength 500 MG 3 tablets orally every 6 hrs Not-Taking Flecainide Acetate 150 MG 1 tablet Orall y every 12 hrs Active predniSONE 10 MG 1 tablet with food o r milk Orally 4 tabs for 3 days,3tabs for 3 days, 2 tabs for 3 days, and 1 tab for 3 days for 14 days 01/23/2024 Active Co Q 10 100 MG 1 capsule with a nils l Orally Once a day Active Cartia XT 120 MG 1 capsule Orally Onc e a day for 30 day(s) Active Zithromax Z-Khadar 250 MG 2 tablet on the irst day, then 1 tablet daily for 4 days Orally Once a day for 5 day(s) 01/23/2024 Active Vital Signs Height 70.50 in 01/23/2024 Weight 196 lbs 01/23/2024 BMI 27.72 kg/m2 01/23/2024 weight at home is 196 BP not taken at home no temp Encounters Encounter Location Date Provider Diagnosis Richard Castro MD [address] [place] [address] [place] [id number] 01/23/2024 Richard Castro Bronchitis J40 Assessments Encounter Date Diagnosis (ICD Code) Assessment Notes Treatment Notes Treatment Clinical Notes Section Notes 01/23/2024 Bronchitis (ICD-10 - J40) patient verbalized understanding of medication and directions for use, Plan Of Treatment Medication Medication Name Sig Start Date Stop Date Notes predniSONE 10 MG 1 tablet with food o r milk Orally 4 tabs for 3 days,3tabs for 3 days, 2 tabs for 3 days, and 1 tab for 3 days for 14 days 01/23/2024 Zithromax Z-Khadar 250 MG 2 tablet on the f irst day, then 1 tablet daily for 4 days Orally Once a day for 5 day(s) 01/23/2024 Treatment Notes Assessment Notes Bronchitis patient verbalized u nderstanding of medication and directions for use, Next Appt Details Provider Name:Richard Chatman ier, 07/05/2025 07:30:00 AM, [address], [address], [place], [place], [phone], Provider Name:Richard Chatman ier, 07/18/2025 01:00:00 PM, 10 [facility], [address], [place], [place], [phone], Progress Notes * Joselito HURD ADOB:[birth year] (73 yo M)Acc No.[id number]:01/23/2024 Patient: Joselito Garcia Provider: Del Castro MD :1950 A ge:73 Y S ex:Male Date:01/23/2024 Address:[address] [place], [place] [phone] Subjective: * Chief Complaints: * C OUGHING ONE WEEK, WHEEZING and fatigueCELL PHONE [phone] TEST FOR COVID THIS MORNtested for Covid this AM negative * HPI: S ymptom(s): Telehealth L ocation of provider rendering services: [address], [address], L ocation of patient: a t address listed in demographics for today's visit, P atient identification confirmed using: N oscar, , SSN, Insurance information, T elehealth method: V ideo conference where patient is visible to the provider of care, C onsent: P atient verbally consented to treatment, Patient verbally consented to billing insurance company, Patient informed of any privacy concerns related to method of visit. patient is a 73 yo male video telehealth visit with complaint of coughing for one week, wheezing and fatigue. tested negative for covid this morning. * ROS: G eneral/Constitutional: Denies C hills. A dmits F atigue. D enies F ever. D enies H eadache. E NT: Patient denies d ecreased sense of smell , any loss of taste , sore throat. D enies S ore throat. G astrointestinal: Denies D iarrhea. D enies [...] food or milk Orally Three times a dayNot-Taking/PRN Valtrex 1 GM Tablet 1 tablet Orally 3 times a dayNot-Taking/PRN Tylenol Extra Strength 500 MG Tablet 3 [...] or milk Orally Three times a day * Allergies: N .K.D.A.yes[Allergies Verified] Objective: * Vitals: H t: 70.50, Wt:196, BMI:27.72 weight at home is 196 BP not taken at home no temp. * Examination: G eneral Examination: GENERAL APPEARANCE: alert, well hydrated, in no distress . HEAD: normocephalic. Assessment: * Assessment: 1. B ksenia - J40 (Primary) Plan: * Treatment: * Procedure Codes: * * Sign off status: Completed true * Provider: Del Castro MD Date: 0 01/23/2024 Generated for Per deleon/Amandeep/Maninder on: 1 08/18/2024 11:24 AM EST History and Physical Notes * HPI (History of Present Illness) Category Sub-Category Detail Notes Category Not es Symptom(s) Telehealth Location of [facility] rendering services:: [address], [address] patient is a 73 yo male video telehealth visit with complaint of coughing for one week, wheezing and fatigue. tested negative for covid this morning. Location of patient:: at address listed in demographics for today's visit Patient identification confirmed using:: Name, , SSN, Insurance information Telehealth method:: Video co nference where patient is visible to the provider of care Consent:: Patient verbally c onsented to treatment, Patient verbally consented to billing insurance company, Patient informed of any privacy concerns related to method of visit Examination Category Sub-Category Detail Notes Category Not es General Examination GENERAL APPEARANCE: alert, w ell hydrated, in no distress HEAD: normocephalic
--- OUTSIDE RECORDS SUMMARY | 2024-07-03 03:30 | XMS_ITS ---
Author Organization Richard Castro MD Address [address] [place], [place] [phone] Care Team Providers Care Bottom Finisher Name Role Phone Richard Castro Primary Care Provider [phone] Results Component Value Reference Range Notes Complete Blood Count Auto Di ff Reviewed date:07/03/2024 08:00:30 PM Interpretation: Performing Lab:[facility], [address] [place] [phone] Notes/Report: White Blood Count 7.5 4.8-10.8 X10*3/uL [...] NRBC Abs Auto 0.000 0.0-0.012 X10*3/uL Comprehensive [place]. Panel Fa st Reviewed date:07/03/2024 08:16:51 PM Interpretation: Performing Lab:[facility], [address] [place] [phone] Notes/Report: Sodium 138 135-145 mmol/L Potassium 4.1 [...] Panel Reviewed date:07/03/2024 08:01:49 PM Interpretation: Performing Lab:[facility], [address] [place] [phone] Notes/Report: Triglycerides 98 <150 mg/dL Desirable Triglyceride: [...] date:07/17/2024 04:52:07 PM Interpretation:see back 07-17-2024 Performing Lab:[facility], [address] [place] [phone] Notes/Report: PSA,Total (Free>4and<10) 5.94 0.00-4.00 ng/mL PSA methodology: Burgess Alinity i Chemiluminescent Microparticle Immunoassay (CMIA) UA ClnCatch+Micro w/rflx Cul t Reviewed date:07/03/2024 08:03:57 PM Interpretation: Performing Lab:[facility], [address] [place] [phone] Notes/Report: Urine, Clean Catch Color Urine Yellow Appearance Urine Clear PH 5.5 5.0-9.0 Glucose Urine UA Negative Negative mg/dL Urine Blood Negative Negative Specific [place] - Urine 1.015 1.005-1.025 Urine Protein Negative [...] Date Provider Diagnosis Richard Castro MD [address] [place], [place] [phone] 07/03/2024 Richard Castro Elevated PSA R97.20 ; Encounter for immunization Z23 and Pure hypercholesterolemia E78.00 Assessments Encounter Date Diagnosis (ICD Code) Assessment Notes Treatment Notes Treatment Clinical Notes Section Notes 07/03/2024 Elevated PSA (ICD-10 - R97.20) 07/03/2024 Encounter for immunization (ICD-10 - Z23) 07/03/2024 Pure hypercholesterolemia (ICD-10 - E78.00) Plan Of Treatment Next Appt Details Provider Name:Richard Chatman ier, 07/05/2025 07:30:00 AM, [address] [place] [address], [address], [phone], Provider Name:Richard Garcia Grettaaneudy ier, 07/18/2025 01:00:00 PM, [address] [place] [address], [place] [address], [place], [place], [phone], Progress Notes * Joselito HURD ADOB:[birth year] (75 yo M)Acc No.[id number]:07/03/2024 Progress Note Patient: Joselito HANNA Provider: Del Castro MD :1950 A ge:74 Y S ex:Male Date:07/03/2024 Address:[address] [place] [address] Subjective: * Chief Complaints: * 1 . [...] - 07/03/2024 08:30 AM) L AB: Comprehensive [place]. Panel Fast (Collection Date & Time - [...] FLU VAC NO FEE SCHED SAME DAY, [address] VENIPUNCT, ROUTINE* * * The named appointment provid er may or may not be the originator of this progress note, and it is not deemed complete until electronically signed by the appointment provider. Sign off status: Pending * Provider: Del Casrto MD Date: 09/02/2023 Generated for Per deleon/Amandeep/Maninder on: 08/18/2024 11:25 AM EST
--- OUTSIDE RECORDS SUMMARY | 2024-07-17 08:30 | XMS_ITS ---
Author Organization Richard Castro MD Address [address] [place] [phone] Care Team Providers Care Tire Servicer Name Role Phone Richard Castro Primary Care [...] Location Date Provider Diagnosis Richard Castro MD [address] [place] [address] [address] [place], [place] [phone] 07/17/2024 Richard Castro Essential tremor G25 .0 [...] or maybe wait/ get last note from [facility] 07/17/2024 Colon cancer screeni ng (ICD-10 [...] or maybe wait/ get last note from [facility] Colon cancer screening guaiac negative Depression screening negative screen Next Appt Details Follow Up: 1 Year, Reason: Provider Name:Richard escamilla, 07/05/2025 07:30:00 AM, [address] [place] [address], [address] [place] [address], [phone], Provider Name:Richard escamilla, 07/18/2025 01:00:00 PM, [address] [place] [address], [place] [address], [place], [place], [phone], Progress Notes * Joselito HURD ADOB:[birth year] (74 yo M)Acc No.[id number]:07/17/2024 Patient: Joselito Garcia Provider: Del Castro MD :1950 A ge:74 Y S ex:Male Date:07/17/2024 Address[place] [address] Subjective: * Chief Complaints: * R eview [...] 01-23-24. * P ast Orders: L ab:Comprehensive [place]. Panel Fast (Order Date - 07/03/2024) (Collection [...] mg/dL Urine Blood Negative Negative - Specific [place] - Urine 1.015 1.005-1.025 - Urine Protein [...] or maybe wait/ get last note from [facility] 3. C olon cancer screening L AB: Occult Blood, Stool, Guaiac N egative Value Reference Range O ccult Blood, Stool, Guaiac Neg Notes: guaiac negative??4.?Depression screening? Notes: negative screen?? * Procedure Codes: 8 2270 TEST FOR BLOOD, FECES * Follow Up: 1 Year * * Sign off status: Completed true * Provider: Del Castro MD Date: 09/17/2023 Generated for Per deleon/Amandeep/Maninder on: 08/18/2024 11:25 [...] had two or more falls in the year?: No Communication Needs Communication Needs Does [...]
--- OUTSIDE RECORDS SUMMARY | 2024-12-24 06:00 | XMS_ITS ---
Author Organization Richard Castro MD Address [address] [place], [place] [id number] Care Team Providers Care Filling Station Equipment Mechanic Name Role Phone Richard Castro Primary Care Provider Allergies No Known Allergies Results Component Value Reference Range Notes Complete Blood Count Auto Di ff Reviewed date:12/24/2024 05:16:55 PM Interpretation: Performing Lab:[facility], [address] [place] [phone] Notes/Report: White Blood Count 8.2 4.8-10.8 X10*3/uL Red Blood Count 4.04 4.60-5.80 X10*6/uL Hemoglobin 12.9 14.0-18.0 g/dl Hematocrit 37.8 42.0-52.0 % Mean Corpuscular Volume 93.6 80.0-98.0 fL Mean Corpuscular Hemoglobin 31.9 27.0-33.0 pg Mean Corpuscular HGB Conc 34.1 31.0-36.0 g/dl Red Cell Distribution Width 14.6 11.0-16.0 % Platelet Count 240 160-400 X10*3/uL Mean Platelet Volume 10.4 9.4-12.4 fL Neutrophils Percent Auto 57.8 45-73 % Imm Gran Pct Auto 0.2 0.0-0.4 % Lymphocytes Percent Auto 28.0 20-40 % Monocytes Percent Auto 10.3 2-11 % Eosinophils Percent Auto 3.1 0-4 % Basophils Percent Auto 0.6 0-2 % NRBC Pct Auto 0.0 0.0-0.2 /100WBC Neutrophils Absolute Auto 4.7 2.0-8.3 x10*3/u L Imm Gran Abs Auto 0.02 0.00-0.03 X10*3/uL Lymphocytes Absolute Auto 2.3 1.2-4.9 X10*3/u L Monocytes Absolute Auto 0.8 0.1-1.2 X10*3/uL Eosinophils Absolute Auto 0.3 0.0-0.4 X10*3/u L Basophils Absolute Auto 0.1 0.0-0.2 X10*3/uL NRBC Abs Auto 0.000 0.0-0.012 X10*3/uL Comprehensive Met. Panel Reviewed date:12/24/2024 05:16:08 PM Interpretation: Performing Lab:[facility], [address] [place] [phone] Notes/Report: Sodium 137 135-145 mmol/L Potassium 4.2 3.3-5.1 mmol/L Chloride 105 96-108 mmol/L Carbon Dioxide 26 22-29 mmol/L Anion Gap 10 12-20 Blood Urea Nitrogen 19 9-16 mg/dL Creatinine 0.90 0.5-1.4 mg/dL Estimated Glomerular Filt Rate > 60 Chronic Kidney Disease: Estimated GFR < 60 mL/min/1.73m2 Severe Kidney Disease: Estimated GFR < 15 mL/min/1.73m2 Glucose Random 99 60-115 mg/dL Calcium 9.1 8.4-10.2 mg/dL Bilirubin Total 0.4 0.0-1.0 mg/dL Aspartate Amino Transferase 33 5-37 U/L Alanine Aminotransferase 26 0-40 U/L Total Protein 6.7 6.5-8.0 g/dL Albumin Level 3.8 3.5-5.0 g/dL Alkaline Phosphatase 83 39-117 U/L REASON FOR VISIT r shoulder DR Thomas 02-12-25 needs CBC BMP EKG going to Account Strategist 01-01-25 to be cleared, Patientfound a mass behind his right ear 1 week ago Medications Medication SIG (Take, Route, Frequency, Duration) Notes Start Date End Date Status Staxyn 10 MG 1 tablet on the tongue and allow to dissolve as needed Orally Once a day Not-Taking Indomethacin 50 MG 1 capsule with food or milk Orally Three times a day for 10 days 10/07/2016 Not-Taking Cartia XT 120 MG 1 capsule Orally Onc e a day for 30 day(s) Active Co Q 10 100 MG 1 capsule with a nils l Orally Once a day Active Amoxicillin 500 MG 1 capsule Orally every 8 hrs for 10 day(s) 05/15/2018 Not-Taking Propranolol HCl ER 80 MG TAKE ONE CAPSUL E BY MOUTH ONCE DAILY for 30 Active Valtrex 1 GM 1 tablet Orally 3 times a day for 7 days 01/13/2021 Not-Taking Cyclobenzaprine HCl 5 MG 1 tablet as nee ded Orally Three times a day for 10 days 02/27/2019 Not-Taking Tylenol Extra Strength 500 MG 3 tablets orally every 6 hrs Not-Taking Ibuprofen 800 MG 1 tablet with food o r milk as needed Orally Three times a day for 30 days 02/27/2019 Not-Taking Flecainide Acetate 150 MG 1 tablet Orall y every 12 hrs Active Tamsulosin HCl 0.4 MG 1 capsule Orally O nce a day Active Vital Signs Blood pressure systolic 118 mm Hg 12/25/19 25 Blood pressure diastolic 70 mm Hg 025 Height 70.50 in 12/24/2024 Weight 200 lbs 12/24/2024 BMI 28.29 kg/m2 12/24/2024 Encounters Encounter Location Date Provider Diagnosis Richard Castro MD [address] [place] [address] [address] [place], [place] [phone] 12/24/2024 Richard Castro Mass in neck R22.1 ; Right shoulder pain, unspecified chronicity M25.511 and Preop examination Z01.818 Assessments Encounter Date Diagnosis (ICD Code) Assessment Notes Treatment Notes Treatment Clinical Notes Section Notes 12/24/2024 Mass in neck (ICD-10 - R22.1) THE ORDER WAS FAXED TO [facility], pending diagnsotic testing 12/24/2024 Right shoulder pain, unspecified chronicity (ICD-10 - M25.511) 12/24/2024 Preop examination (ICD-10 - Z01.818) at this point i don't find anything medically to prevent his shoulder surgery if cleared by his mutuel teller Plan Of Treatment Treatment Notes Assessment Notes Mass in neck THE ORDER WAS FAXED TO [facility], pending diagnsotic testing Preop examination at this point i don' t find anything medically to prevent his shoulder surgery if cleared by his mutuel teller Pending Test Test Name Order Date US soft tiss head and/or neck 12/24/2024 Next Appt Details Follow Up: after us, Reason: Provider Name:Richard escamilla, 07/05/2025 07:30:00 AM, [address] [place] [address], [address], [place], [phone], Provider Name:Richard saldivarr, 07/18/2025 01:00:00 PM, [address] [place] [address], [address], [place], [place], [phone], Progress Notes * Joselito HURD ADOB:[birth year] (74 yo M)Acc No.[id number]:12/24/2024 Patient: Joselito HANNA Provider: Del Castro MD :1950 A ge:74 Y S ex:Male Date:12/24/2024 Address:[address] [place] [address] Subjective: * Chief Complaints: * r shoulder DR Thomas 02-12-25 needs CBC BMP EKG going to Account Strategist 01-01-25 to be clearedPatient found a mass behind his right ear 1 week ago * HPI: S ymptom(s): patient is a 74 yo male/ having shoulder replacement/ found lump behind ear one week ago. F all Risk: History H ave you had any falls with injury in the past year? Y es stepped i a puddle of water and slipped and fell onto his right side. went to Urgent on [address] H ave you had two or more falls in the past year? N o. * ROS: G eneral/Constitutional: Denies C hills. D enies F atigue. D enies F ever. D enies H eadache. E NT: Patient denies d ecreased sense of smell, any loss of taste, sore throat. D enies S ore throat. R espiratory: Denies Michelle ough. D enies S hortness of breath at rest. D enies S hortness of breath with exertion. G astrointestinal: Denies D iarrhea. D adonis N ausea. M usculoskeletal: Patient denies m uscle aches. P eripheral Vascular: Patient denies r ed and blue toes. * Medical History: * Surgical History: * Hospitalization/Major Diagno stic Procedure: * Medications: T akingCartia XT 120 MG Capsule Extended Release 24 Hour 1 capsule Orally Once a day Co Q 10 100 MG Capsule 1 capsule with a meal Orally Once a day Flecainide Acetate 150 MG Tablet 1 tablet Orally every 12 hrs Tamsulosin HCl 0.4 MG Capsule 1 capsule Orally Once a day Propranolol HCl ER 80 MG Capsule Extended Release 24 Hour TAKE ONE CAPSULE BY MOUTH ONCE DAILY Taking Cartia XT 120 MG Capsule Extended Release 24 Hour 1 capsule Orally Once a day Taking Co Q 10 100 MG Capsule 1 capsule with a meal Orally Once a day Taking Flecainide Acetate 150 MG Tablet 1 tablet Orally every 12 hrs Taking Tamsulosin HCl 0.4 MG Capsule 1 capsule Orally Once a day Taking Propranolol HCl ER 80 MG Capsule Extended Release 24 Hour TAKE ONE CAPSULE BY MOUTH ONCE DAILY Not-Taking/PRNValtrex 1 GM Tablet 1 tablet Orally 3 times a day Tylenol Extra Strength 500 MG Tablet 3 tablets orally every 6 hrs Ibuprofen 800 MG Tablet 1 tablet with food or milk as needed Orally Three times a day Cyclobenzaprine HCl 5 MG Tablet 1 tablet as needed Orally Three times a day Amoxicillin 500 MG Capsule 1 capsule Orally every 8 hrs Staxyn 10 MG Tablet Dispersible 1 tablet on the tongue and allow to dissolve as needed Orally Once a day Indomethacin 50 MG Capsule 1 capsule with food or milk Orally Three times a day Medication List reviewed and reconciled with the patientNot-Taking/PRN Valtrex 1 GM Tablet 1 tablet Orally 3 times a day Not-Taking/PRN Tylenol Extra Strength 500 MG Tablet 3 tablets orally every 6 hrs Not-Taking/PRN Ibuprofen 800 MG Tablet 1 tablet with food or milk as needed Orally Three times a day Not-Taking/PRN Cyclobenzaprine HCl 5 MG Tablet 1 tablet as needed Orally Three times a day Not-Taking/PRN Amoxicillin 500 MG Capsule 1 capsule Orally every 8 hrs Not-Taking/PRN Staxyn 10 MG Tablet Dispersible 1 tablet on the tongue and allow to dissolve as needed Orally Once a day Not-Taking/PRN Indomethacin 50 MG Capsule 1 capsule with food or milk Orally Three times a day Medication List reviewed and reconciled with the patient * Allergies: N .K.D.A.yes[Allergies Verified] Objective: * Vitals: H t: 70.50, Wt: 200, BMI:28.29, BP:118/70, Wt-k.72. * Examination: G eneral Examination: GENERAL APPEARANCE: a lert, well hydrated, in no distress.? HEAD: n ormocephalic. EYES: e xtraocular movement full and smooth. THROAT: n o erythema, no exudate, pharynx normal. NECK/THYROID: a bnormal with a mass in rt submandibular area about 2 inches in diameter. hard and irregular. LYMPH NODES: n o axillary, supraclavicular or inguinal adenopathy. SKIN: g ood turgor. HEART: n o murmurs, rubs, gallops, regular rate and rhythm.? LUNGS: n o wheezes, rales, rhonchi, good air movement, clear to auscultation bilaterally. ABDOMEN: n o hepatosplenomegaly, soft, nontender, nondistended. Assessment: * Assessment: 1. R ight shoulder pain, unspecified chronicity - M25.511 (Primary) 2 . M ass in neck - R22.1 3 . P reop examination - Z01.818 Plan: * Treatment: 2. P reop examination L AB: Complete Blood Count Auto Diff (Collection Date & Time - 12/24/2024 11:00 AM) L AB: Comprehensive Met. Panel (Collection Date & Time - 12/24/2024 11:00 AM) Notes: at this point i don't find anything medically to prevent his shoulder surgery if cleared by his mutuel teller * Procedure Codes: 3 6415 VENIPUNCT, ROUTINE* * Follow Up: a fter us * * Sign off status: Completed true * Provider: Del Castro MD Date: 0 12/24/2024 Generated for Per deleon/Amandeep/eTransmitting on: 1 08/18/2024 11:25 AM EST History and Physical Notes * HPI (History of Present Illness) Category Sub-Category Detail Notes Category Not es Symptom(s) patient is a 74 yo male/ having shoulder replacement/ found lump behind ear one week ago Fall Risk History Have you had any falls with injury in the past year?: Yes stepped i a puddle of water and slipped and fell onto his right side. went to Urgent on [address]. Have you had two or more falls in the st year?: No Examination Category Sub-Category Detail Notes Category Not es General Examination GENERAL APPEARANCE: alert, w ell hydrated, in no distress HEAD: normocephalic EYES: extraocular movement full and smooth THROAT: no erythema, no exud ate, pharynx normal NECK/THYROID: abnormal with a mass in rt submandibular area about 2 inches in diameter. hard and irregular HEART: no murmurs, rubs, ga llops, regular rate and rhythm LUNGS: no wheezes, rales, r honchi, good air movement, clear to auscultation bilaterally ABDOMEN: no hepatosplenomegal y, soft, nontender, nondistended SKIN: good turgor LYMPH NODES: no axillary, supracl avicular or inguinal adenopathy
--- OUTSIDE RECORDS SUMMARY | 2025-01-15 04:25 | XMS_ITS ---
Author Organization Richard Castro MD Address [address] [place] [phone] Care Team Providers Care Cocoa Bean Cleaner Name Role Phone Richard Castro Primary Care Provider REASON FOR VISIT FYI US neck cancelled Encounters Encounter Location Date Provider Diagnosis Richard Castro MD 10 [facility] [address] [place] [phone] 01/15/2025 Richard Castro Plan Of Treatment Next Appt Details Provider Name:Richard Cahtman ier, 07/05/2025 07:30:00 AM, [address] [place] [address], [address] [place] [address], [phone], Provider Name:Richard Chatman iemelia, 07/18/2025 01:00:00 PM, [address] [place] [address], [address] [place] [address], [phone], Progress Notes * Joselito HURD ADOB:[birth year] (74 yo M)Acc No.[id number]:01/15/2025 Patient: Jose MESSERJoselito KEENAN A :1950 A ge:74 Y S ex:Male Address:[address] [place] [address] * true * Date: Generated for Pre deleon/Amandeep/Kendricksmitting on: 08/18/2024 11:25 AM EST
--- OUTSIDE RECORDS SUMMARY | 2025-02-28 08:57 | XMS_ITS ---
Author Organization Richard Castro MD Address [address] [place] [address] [phone] Care Team Providers Care Medical Office Technology Instructor Name Role Phone Richard Castro Primary Care Provider REASON FOR VISIT discharge Encounters Encounter Location Date Provider Diagnosis Richard Castro MD 10 [facility] [address] [place] [address] [phone] 02/28/2025 Richard Castro Plan Of Treatment Next Appt Details Provider Name:Richard escamilla, 07/05/2025 07:30:00 AM, [address] [place] [address], [address], [phone], Provider Name:Richard escamilla, 07/18/2025 01:00:00 PM, [address] [place] [address], [address], [phone], Progress Notes * Joselito HURD ADOB:[birth year] (75 yo M)Acc No.[id number]:02/28/2025 Patient: Joselito HANNA :1950 A ge:75 Y S ex:Male Address:[address] [place] [address] * true * Date: Generated for Per deleon/Amandeep/Kendricksmitting on: 08/18/2024 11:24 AM EST
--- OUTSIDE RECORDS SUMMARY | 2025-06-18 11:25 | XMS_ITS | Encounter Summary ---
Author Organization [facility] Address [address] [place] [address] Phone Care Team Providers Care Astronomy Teacher Name Role Phone Richard Castro MD Primary Care Provider Encounter Details Date Type Department Care Team (Latest Contact Info) Description 06/04/2017 Ancillary Orders [facility] [address], [address] [place] [address] Av Orozco MD [address] [facility], [address] [address] Diagnosis unknown Social History Tobacco Use Types [...] Description 07/03/2025 1:00 PM EST Office Visit [facility] [address], [address] [place] [address] Jeniffer Joseph, JUAN [address] [place] [address] 09/13/2025 10:00 AM EST Office Visit [facility] [address], [address] [place] [address] Roxy Burnette, JUAN [address] [facility], [address] [place] [address] [email or web address] documented as of this encounter Visit Diagnoses Diagnosis Diagnosis unknown documented in this encounter Care Teams Astronomy Teacher Relationship Specialty Start Date End Date Richard Castro MD [address] [place] [address] [address] PCP - General 06/02/17 documented as of this encounter Additional Source Comments The information contained in this document represents components of the legal health record. It is not the complete legal health record.[facility]
--- OUTSIDE RECORDS SUMMARY | 2025-06-18 11:25 | XMS_ITS | Encounter Summary ---
Author Organization [facility] Address [address] [place] [address] Phone Care Team Providers Care Baseball Player Name Role Phone Richard Castro MD Primary Care Provider Encounter Details Date Type Department Care Team (Late st Contact Info) Description 06/18/2025 Telephone [facility] [address] [place] [address] [address]rd Floor, [address] [place] [address] Jeniffer Joseph, [facility] [address] [place] [address] [email or web address] Social History Tobacco Use Types Packs/Day Years [...] on file documented as of this encounter Progress Notes * Jenna Gillette, LITO - 06/18/2025 10:00 AM EST Notified ortho * Jenna Gillette RN - 06/18/2025 9:06 AM EST Pt is having shoulder surgery tomorrow They have asked pt to hold xarelto for 48 hrs They want to make sure that is ok?? documented in this encounter Plan of Treatment Upcoming Encounters Date Type Department Care Team (Late st Contact Info) Description 07/03/2025 1:00 PM EST Office Visit [facility] [address], [address] [place] [address] Jeniffer Joseph, JUAN [address] [place] [id number] 09/13/2025 10:00 AM EST Office Visit [facility] [address], [address] [place] [address] Roxy Burnette, JUAN [address] [place] [id number] documented as of this encounter Visit Diagnoses Not on filedocumented in this encounter Care Teams Baseball Player Relationship Specialty Start Date End Date Richard Castro MD [address] [place] [address] [facility] [place] [address] PCP - General 06/02/17 documented as of this encounter Additional Source Comments The information contained in this document represents components of the legal health record. It is not the complete legal health record.[facility]
--- OUTSIDE RECORDS SUMMARY | 2025-06-18 11:25 | XMS_ITS | Encounter Summary ---
Author Organization [facility] Address [address] [facility] [address] [place] [address] Phone Care Team Providers Care Forge Tender Name Role Phone Richard Castro MD Primary Care Provider Encounter Details Date Type Department Care Team (Late Contact Info) Description 08/26/2022 Procedure Pass [facility] [address] [place] [address] Social History Tobacco Use Types Packs/Day Years [...] Description 07/03/2025 1:00 PM EST Office Visit [facility] [address] Floor, [address] [place] [address] Jeniffer Joseph, [facility] [address] [place] [address] 09/13/2025 10:00 AM EST Office Visit [facility] [address] Floor, [address] [place] [address] Roxy Burnette DNP 22 [facility], [address] [place] [address] [email or web address] documented as of this encounter Visit Diagnoses Not on filedocumented in this encounter Care Teams Forge Tender Relationship Specialty Start Date End Date Richard Castro MD [address] [place] [address] [place] [address] PCP - General 06/02/17 documented as of this encounter Additional Source Comments The information contained in this document represents components of the legal health record. It is not the complete legal health record.[facility]
--- OUTSIDE RECORDS SUMMARY | 2025-06-18 11:25 | XMS_ITS | Encounter Summary ---
Author Organization [facility] Address [address] [facility] [address] [place] [address] Phone Care Team Providers Care Game Preserve Manager Name Role Phone Richard Castro MD Primary Care Provider Encounter Details Date Type Department Care Team (Latest Contact Info) Description 11/15/2017 Ancillary Orders [facility] [address] Floor, [address] [place] [address] Av Orozco MD 22 [facility], [address] [address] Paroxysmal atrial fibrillation Social History Tobacco Use [...] Description 07/03/2025 1:00 PM EST Office Visit [facility] [address] Floor, [address] [place] [address] Jeniffer Joseph, [facility] [address] [place] [address] 09/13/2025 10:00 AM EST Office Visit [facility] [address] Floor, [address] [place] [address] Roxy Burnette, JUAN 22 [facility], [address] [place] [address] [email or web address] documented as of this encounter Results * TTE COMPREHENSIVE (11/17/2017 10:06 AM EDT) Anatomical Region Laterality Modality Heart Ultrasound us Av Orozco MD CV ECHO ORDERABLES Final Result documented in this encounter Visit Diagnoses Diagnosis Paroxysmal atrial fibrillation Atrial fibrillation documented in this encounter Care Teams Game Preserve Manager Relationship Specialty Start Date End Date Richard Castro MD [address] [place] [address] [address] PCP - General 06/02/17 documented as of this encounter Additional Source Comments The information contained in this document represents components of the legal health record. It is not the complete legal health record.[facility]
--- OUTSIDE RECORDS SUMMARY | 2025-06-18 11:25 | XMS_ITS | Clinical Summary ---
Author Organization [facility] Address [address] [address] Phone Care Team Providers Care Associate Application Developer Name Role Phone Richard Castro MD Primary [...] and now has another point to his [id number] score now making him by 2 which [...] Encounters Date Type Department Care Team Description 06/18/2025 Telephone [facility] [address], [address] [place] [address] Jeniffer Joseph DNP 05/17/2025 1:20 PM EDT Office Visit [facility] [address] Floor, [address] [place] [address] Dianelys Fonseca MD Paroxysmal atrial fibrillation (Primary Dx); 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 05/13/2025 4:00 PM EDT Office Visit [facility] [address] Floor, [address] [place] [address] Kyle Montanez MD Other chest pain (Primary [...] Description 07/03/2025 1:00 PM EST Office Visit [facility] [address] [place] [address], [address] [place] [address] Jeniffer Joseph, JUAN [address] [place] [address] 09/13/2025 10:00 AM EST Office Visit [facility] [address] Floor, [address] [place] [address] Roxy Burnette DNP [address] [place] [address], [address] [place] [address] Health Maintenance Due Date Last Done Comments Adult Td,Tdap Booster 1950 LIPID PANEL 1950 DEPRESSION SCREENING 1961 HEPATITIS C SCREENING 1967 ZOSTER VACCINES (1 of 2) 1999 CREATININE LEVEL 09/10/2023 09/10/2022 RSV VACCINE (1 - 1-dose 75+ series) 02/25/2024 INFLUENZA VACCINE (#1) 2025 2, 07/13/2021, 04/22/2020, Additional history exists COVID-19 VACCINE ( - 2024- season) 2025 07/20/2021, 11/12/2020, 10/22/2020 PNEUMOCOCCAL VACCINES [...] this topic Medical Devices Implanted Type Area Perinatal Tech Device Identifier Shelf Expiration Date Model / Serial / Lot Mesh Mesh Pin Pin Right: Arm Procedures Procedure Name Priority Date/Time Associated Diagnosis Comments BASIC METABOLIC PANEL (BMP) Routine 09/10/2022 11:13 AM EST Persistent atrial fibrillation from Last 3 Months or Most Recently Relevant to Health Maintenance Results * (ABNORMAL) Basic metabolic panel (09/10/2022 11:13 AM EST) SODIUM 138 133 - 146 mmol/L [facility] CHLORIDE 102 96 - 108 mmol/L [facility] POTASSIUM 4.8 3.3 - 5.1 mmol/L [facility] CO2 27 21 - 35 mmol/L [facility] BUN 21(H) 6 - 19 mg/dL [facility] CREATININE 1.10 0.5 - 1.5 mg/dL [facility] GLUCOSE 93 70 - 99 mg/dL [facility] CALCIUM 9.2 8.4 - 10.3 mg/dL [facility] EGFR 71 >59 mL/min/1.7 3m2 [facility] Comment:Estimated glomerular filtration rate calculated using the CKD-EPI refit equation. ANION GAP 14 10 - 20 mmol/L [facility] Blood 09/10/2022 11:1 3 AM EST 09/10/2022 4:07 PM EST us Edenilson Stapleton MD LAB BLOOD BKR ORDERABLES Fin al Result Performing Organization Address City/State/[facility] Co de Phone Number [facility] [address] [place] [address] from Last 3 Months or Most Recently Relevant to Health Maintenance Insurance [employer] SUPPLEMENT MEDICARE PART A & B [employer] MEDEX SUPPLEMENT MEDICARE PART A & B [facility] MEDEX SUPPLEMENT MEDICARE PART A & B [place] [employer] MEDEX SUPPLEMENT MEDICARE PART A & B [employer] SUPPLEMENT MEDICARE PART A & B [employer] CROSS MEDEX SUPPLEMENT MEDICARE PART A & B [employer] CROSS MEDEX SUPPLEMENT MEDICARE PART A & B [employer] MEDEX SUPPLEMENT MEDICARE PART A & B [employer] MEDEX SUPPLEMENT MEDICARE PART A & B Care Teams Associate Application Developer Relationship Specialty Start Date End Date Richard Castro MD [address] [place] [address] [place] [address] PCP - General 06/02/17 Additional Source Comments The information contained in this document represents components of the legal health record. It is not the complete legal health record.[facility]
--- OUTSIDE RECORDS SUMMARY | 2025-06-18 11:26 | XMS_ITS | Encounter Summary ---
Author Organization [facility] Address [address] [facility] [address] [place] [address] Phone Care Team Providers Care Research Animal Facility Supervisor Name Role Phone Richard Castro MD Primary Care Provider Encounter Details Date Type Department Care Team (Late st Contact Info) Description 12/12/2020 Procedure Pass Echo Lab [address] [place] [address] Social History Tobacco Use Types Packs/Day Years [...] Description 07/03/2025 1:00 PM EST Office Visit [facility] [address] Floor, [address] [place] [address] Jeniffer Joseph DNP [address] [place] [address] 09/13/2025 10:00 AM EST Office Visit [facility] [address] Floor, [address] [place] [address] Roxy Burnette DNP 22 [facility] [address] [place] [address] [email or web address] documented as of this encounter Visit Diagnoses Not on filedocumented in this encounter Care Teams Research Animal Facility Supervisor Relationship Specialty Start Date End Date Richard Castro MD [address] [place] [address] Dr CHASE [address] [place] [address] PCP - General 06/02/17 documented as of this encounter Additional Source Comments The information contained in this document represents components of the legal health record. It is not the complete legal health record.[facility]
--- OUTSIDE RECORDS SUMMARY | 2025-06-18 11:26 | XMS_ITS | Patient Health Record ---
Author Organization [facility] Address [address] [place] [address] Care Team Providers Care Special Library Librarian Name Role Phone Richard Castro MD Primary [...] Status W/U Status Risk Notes Problem Hemorrhoids (55143716) Hemorrhoids (455.6) Active confirmed Problem Colon cancer screening (178712800) Colon cancer screening (V76.51) Active confirmed Problem Feces contents abnormal (423663810) Abnormal findings in stool (792.1) Active confirmed Plan Of Treatment Future Test Test Name Order Date COLONOSCOPY 07/26/2014 Insurance Providers Payer Name Payer Address Payer Phone Subscriber Number Group Number Insured Name Patient Relationship to Insured Coverage Start Date Coverage End Date [facility] [address] [address] [place] [id number] ROOSEVELT SAMUELS Self - patient is the insured MEDICARE OF [place] [address] [place] [address] [id number] ROOSEVELT SAMUELS Self - patient is the insured Medical (General) History Medical History History ICD Code lymphoma Atrial fibrillation mitral valve prolapse Surgical History Surgery Date(Month/Year) lymphectomy 1 node under arm 2010
--- OUTSIDE RECORDS SUMMARY | 2025-06-18 11:26 | XMS_ITS | Patient Health Record ---
Author Organization Richard Castro MD Address [address] [place], [place] [address] Care Team Providers Care Topographical Surveyor Name Role Phone Richard Castro Primary Care Provider [phone] Allergies No Known Allergies Results Component Value Reference Range Notes Complete Blood Count Auto Di ff Reviewed date:07/03/2024 08:00:30 PM Interpretation: Performing Lab:[facility], [address] [place] [phone] Notes/Report: White Blood Count 7.5 4.8-10.8 X10*3/uL [...] NRBC Abs Auto 0.000 0.0-0.012 X10*3/uL Comprehensive [place]. Panel Fa st Reviewed date:07/03/2024 08:16:51 PM Interpretation: Performing Lab:[facility], [address] [place] [phone] Notes/Report: Sodium 138 135-145 mmol/L Potassium 4.1 [...] Panel Reviewed date:07/03/2024 08:01:49 PM Interpretation: Performing Lab:[facility], [address] [place] [phone] Notes/Report: Triglycerides 98 <150 mg/dL Desirable Triglyceride: [...] date:07/17/2024 04:52:07 PM Interpretation:see back 07-17-2024 Performing Lab:[facility], [address] [place] [phone] Notes/Report: PSA,Total (Free>4and<10) 5.94 0.00-4.00 ng/mL PSA methodology: Burgess Alinity i Chemiluminescent Microparticle Immunoassay (CMIA) UA ClnCatch+Micro w/rflx Cul t Reviewed date:07/03/2024 08:03:57 PM Interpretation: Performing Lab:[facility], [address] [place] [phone] Notes/Report: Urine, Clean Catch Color Urine Yellow Appearance Urine Clear PH 5.5 5.0-9.0 Glucose Urine UA Negative Negative mg/dL Urine Blood Negative Negative Specific [place] - Urine 1.015 1.005-1.025 Urine Protein [...] ff Reviewed date:12/24/2024 05:16:55 PM Interpretation: Performing Lab:[facility], [address] [place] [phone] Notes/Report: White Blood Count 8.2 4.8-10.8 X10*3/uL [...] Panel Reviewed date:12/24/2024 05:16:08 PM Interpretation: Performing Lab:[facility], [address] [place] [phone] Notes/Report: Sodium 137 135-145 mmol/L Potassium 4.2 [...] date:07/23/2024 08:09:01 AM Interpretation:cback psa 07/17 Performing Lab:[facility], [address] [place] [phone] Notes/Report: Prostate Specific Ag Total 6.2 < [...] 30 93 9 (3)Catalona et al.:MICHI 277: 2593-0148 (1996) (4)Catalona et al.:MICHI 279: 8467-5316 (1997) (x)These estimates vary with age, ethnicity, [...] of disease. THIS TEST WAS PERFORMED AT: [employer] [address] [place] [phone] CLAUS SEALS MD Free Prostate Spec Ag 1.3 CT shoulder RT wo con Reviewed date:12/19/2024 05:35:49 PM Interpretation: Performing Lab: Notes/Report: [place] [address] [address] Scan Report Signed Patient: Joselito Hurd MR#: [id number] : 1950 Acct:[id number] Age/Sex: 74 / M ADM Date: 12/17/24 Loc: HO.CT Attending Dr: Js Marquez PA-C Ordering Physician: Js Marquez PA-C Date of Service: 12/17/24 Procedure(s): CT shoulder RT wo IV con Accession Number(s): [id number] cc: Richard Castro MD; Js Marquez PA-C Report Number: [id number]: Total DLP = 283.00 mGy-cm CLINICAL HISTORY: [...] in OV> 12/19/249[address] DD/ 2 TD/TT: 12/19/24912 Property Portfolio Officer: [place] [address] CT Scan Report Signed Patient: Flavia Hurd Sr MR#: [id number] : 1950 Acct:[id number] Age/Sex: 74 / M ADM Date: 12/17/24 Loc: HO.CT Attending Dr: Justino Marquez PA-C Ordering Physician: Js Marquez PA-C Date of Service: 12/17/24 Procedure(s): CT staci obrien RT wo IV con Accession Number(s): [id number] cc: Richard Castro MD; Js Marquez PA-C [...] in OV> 12/19/24913 DD/ 2 TD/TT: 12/19/24912 Property Portfolio Officer: MRSA Nasal Screen Reviewed date:01/29/2025 05:00:18 PM Interpretation: Performing Lab:[facility], [address] [place] [phone] Notes/Report: MRSA Nasal PCR NEGATIVE Negative SA Nasal PCR NEGATIVE Negative MRSA Interpretation SEE NOTE MRSA target DNA not detected; SA target DNA not detected. A MRSA NEGATIVE, SA NEGATIVE test result does not preclude MRSA or SA nasal colonization. Complete Blood Count Auto Di ff Reviewed date:02/21/2025 05:04:30 PM Interpretation: Performing Lab:[facility], [address] [place] [phone] Notes/Report: White Blood Count 5.4 4.8-10.8 X10*3/uL [...] Panel Reviewed date:02/21/2025 04:13:13 PM Interpretation: Performing Lab:[facility], [address] [place] [phone] Notes/Report: Sodium 138 135-145 mmol/L Potassium 4.5 [...] Screen Reviewed date:02/21/2025 04:00:33 PM Interpretation: Performing Lab:[facility], [address] [place] [phone] Notes/Report: Spec expiration changed by ARPITA on 02/21/25 Reason: PAT NURSING: Call Blood Bank (ext. [phone]) to band patient on admission. Type and Screen in effect until 2300 on 02/26/25 Witnessed by [facility] Blood Type AP Antibody Screen NEGATIVE Hemoglobin and Hematocrit Reviewed date:02/26/2025 12:28:58 PM Interpretation: Performing Lab:[facility], [address] [place] [phone] Notes/Report: Hemoglobin 13.7 14.0-18.0 g/dl Hematocrit 40.8 42.0-52.0 % Pathology Reviewed date:02/28/2025 05:07:11 PM Interpretation: Performing Lab:[facility], [address] [place] [phone] Notes/Report: ------ Name: Joselito Hurd Sr Age/Sex: 75/M : 1950 Unit#: [id number] Attend Dr: Clint Thomas MD Re02/26/25 Status : [facility] Location: [facility] Disch: ------ SPEC : [id number] RECD : 02/27/25 STATUS: EARNEST WALLER NUM: [id number] KRISTINA: 02/26/25-1449 [facility] DR: Clint Thomas MD ENTERED: 02/27/25 52 [...] yet, brittle, tapia-yellow with yellow-pink bone marrow. Livestock Broker secti ons are submitted in a cassette labeled A1 following decalcification. CEDS IHC S/NG Disclaimer NOTE: Unless otherwi se stated, all tissue is formalin-fixed and paraffin-embedded. Some or all of the immunohistochemical tests reported herein may have been developed and their performance characteristics determined by [facility]. They have not been cleared or appr saima by the U.S. Food and Drug Administration (FDA). However, the FDA has determined that such clearance or approval is not necessary. This laboratory is certified under the Clinical Laboratory Improvement Amendments of 1988 (CLIA) as qualified to perform high comp lexity clinical laboratory testing. Copies To: Richard Castro MD [facility] [address] [place] [id number] CONTINUED ON NEXT PAGE ------ Name: Joselito Hurd Sr Age/Sex: 75/M : 1950 Unit#: [id number] Attend Dr: Clint Thomas MD Re02/26/25 Status : [facility] Location: [facility] Disch: ------ SPEC : [id number] RECD : 02/27/25 STATUS: MARYJazlyn SRIDHAR NUM: [id number] KRISTINA: 02/26/25-9 [facility] DR: Clint Thomas MD ENTERED: 02/27/25 53 SP TYPE: Surgical OTHR DR: Richard Castro MD ORDERED: Gross Micro L3, Decal Copies To: (Continued) Clint Thomas MD [facility] [address] [place] [address] [address] [place] [address] ------ Signed (signature on file) Leon Keene MD 02/28/25 1146 ------ END OF REPORT XR shoulder RT 1V Reviewed date:02/26/2025 05:10:31 PM Interpretation: Performing Lab: Notes/Report: [address] [address] XRay Report Signed Patient: Joselito Hurd Sr MR#: [id number] : 1950 Acct:[id number] Age/Sex: 75 / M ADM Date: 02/26/25 Loc: .S3 345-[address]: Clint Thomas MD Ordering Physician: Js Marquez PA-C Date of Service: 02/26/25 Procedure(s): XR shoulder RT 1V Accession Number(s): [id number] cc: Richard Castro MD; Js Marquez PA-C [...] 02/26/25 1702 DD/ 1539 TD/TT: 02/26/25 1642 Property Portfolio Officer: [address] [address] XRay Report Signed Patient: Flavia Hurd Sr MR#: [id number] : 1950 Acct:[id number] Age/Sex: 75 / M ADM Date: 02/26/25 Loc: .S3 345-[address]: Clint ellison MD Ordering Physician: Js Marquez PA-C Date of Service: 02/26/25 Procedure(s): XR staci ulder RT 1V Accession Number(s): [id number] cc: Richard Castro MD; Js Marquez PA-C [...] 02/26/25 1702 DD/ 1539 TD/TT: 02/26/25 1642 Property Portfolio Officer: Complete Blood Count Auto Di ff Reviewed date:02/27/2025 04:10:37 PM Interpretation: Performing Lab:[facility], [address] [place] [phone] Notes/Report: White Blood Count 11.9 4.8-10.8 X10*3/uL [...] g Reviewed date:02/27/2025 04:01:26 PM Interpretation: Performing Lab:[facility], [address] [place] [phone] Notes/Report: Sodium 136 135-145 mmol/L Potassium 4.2 [...] considered impaired (pre-diabetes). Calcium 8.0 8.4-10.2 mg/dL Gram stain Reviewed date:06/17/2025 12:04:27 PM Interpretation: Performing Lab:[facility], [address] [place] [phone] Notes/Report: RIGHT SHOULDER PER R/O C.ACNEVani RT SHOULDER Gram stain Gram stain results: Gram stain 4+ polys Gram stain 4+ red blood cells Gram stain No organisms seen Routine Culture Reviewed date:06/17/2025 12:03:43 PM Interpretation: Performing Lab:[facility], [address] [place] [phone] Notes/Report: RIGHT SHOULDER PER R/O C.ACNEVani RT SHOULDER Routine Culture No growth after 2 days Anaerobic Culture Reviewed date:06/17/2025 12:03:09 PM Interpretation: Performing Lab:[facility], [address] [place] [phone] Notes/Report: RIGHT SHOULDER PER R/O C.ACNEVani RT SHOULDER Anaerobic Culture Culture in progress. Reason For Referral No Information Medications Medication [...] Problem Status W/U Status Risk Notes Problem 118831755 Neuropathy (G62.9) Active confirmed Problem 06629511 Prostatism (N40.0) Active confirmed Problem 844417181 Paroxysmal atria l fibrillation (I48.0) Active confirmed Problem 525352172 Essential tremor (G25.0) Active confirmed Problem 717705430559772 Erectile dysfunc tion due to arterial insufficiency (N52.01) Active confirmed Problem 68905346 Mitral valve dis order (I05.9) Active confirmed Problem Pure hypercholesterolemia (300758096) Elevated LDL cholesterol level (E78.0) Active confirmed Problem 600759937 Non-rheumatic mi tral regurgitation (I34.0) Active confirmed Problem 882418873 Pure hypercholesterolemia (E78.00) Active confirmed Problem 753120522 Elevated PSA (R97.20) Active confirme d Problem 165969897 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 confirmed Problem 77910424 Hydronephrosis 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) Active confirmed Problem 509554666 Elevated serum cholesterol (E78.9) Active confirmed Problem 587800057 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 Vital Signs Blood pressure diastolic 70 mm Hg 12/24/2024 Height 70.50 in 12/24/2024 Blood pressure systolic 118 mm Hg 12/24/2024 Weight 200 lbs 12/24/2024 BMI 28.29 kg/m2 12/24/2024 Encounters Encounter Location Date Provider Diagnosis Richard Castro MD [address] [place] [id number] 07/03/2024 Richard Castro Elevated PSA R97.20 ; Encounter for immunization Z23 and Pure hypercholesterolemia E78.00 Richard Castro MD [address] [place] [id number] 07/17/2024 Richard Castro Essential tremor G25 .0 ; Pure hypercholesterolemia E78.00 ; Elevated PSA R97.20 ; Paroxysmal atrial fibrillation I48.0 ; Colon cancer screening Z12.11 and Depression screening Z13.31 Richard Castro MD [address] [place] [id number] 12/24/2024 Richard Castro Mass in neck R22.1 ; Right shoulder pain, unspecified chronicity M25.511 and Preop examination Z01.818 Richard Castro MD [address] [facility] [address] [place] [id number] 01/15/2025 Richard Castro MD [address] [facility] [address] [place] [id number] 02/28/2025 Richard Castro Assessments Encounter Date Diagnosis [...] his shoulder surgery if cleared by his home furnishings sales representative 07/17/2024 Paroxysmal atrial fibrillation (ICD-10 - I48.0) have warned him of the risk of stroke and he should be on anticoag. he is going to think about it and get back to me or maybe wait/ get last note from [facility] 07/17/2024 Colon cancer screeni ng (ICD-10 [...] 07:30:00 AM, [address], [address], [place], [place], [id number], Provider Name:Richard Jose Lurdes ier, 07/18/2025 01:00:00 PM, [address] [facility] [address], [address], [place], [place], [phone], Insurance Providers Payer Name Payer Address Payer Phone Subscriber Number Group Number Insured Name Patient Relationship to Insured Coverage Start Date Coverage End Date MEDICARE [employer] [address] [place] [address] [id number] Joselito Hurd Self - patient is the insured [employer] [address] [place] [address] [id number] Joselito Hurd Self - patient is the [...]
--- NOTE | 2025-06-18 12:31 | HO.ANESPROP2 ---
Documented by User: Emani Wilson NP 06/18/25 12:34 HPI - Anesthesia Eval Consult details Narrative: 75yo M for Right Shoulder Arthroscopy - wash out s/p Right REVERSE Shoulder Total Arthroplasty, 02/26/25, GA-ETT 8 and block Cardiac optimized. Follows [facility] for afib, mitral regurg/prolapse, borderline AAA. Last office visit 12/2024 - stable. Last echo 2021. Updated echo done per anesthesia request with WMA and decreased EF. Sent to patient's primary cardiology for review and OK'd to proceed without further testing No recent illness No CP/SOB with eliptical 20-30mins almost daily and free weights Mitral regurg Afib: Xarelto, s/p cardioversion x 1 with resolution NonHodgkin Lymphoma: chemo 2009, no further oncology f/u Case reviewed with RAFFI SLOAN Active Problems Active Problems: All Active Problems Status post reverse total arthroplasty of right shoulder (Acute) Rotator cuff arthropathy of right shoulder (Acute) Fall (Acute) Shoulder joint painful on movement (Acute) History of repair of right rotator cuff (Acute) Left inguinal hernia (Acute) Past Medical History Medical History Wears hearing aid in both ears [place] (hard of hearing) History of cardioversion BPH (benign prostatic hyperplasia) Hx MRSA infection (07/2018) Tremor Non-Hodgkin lymphoma Afib Hydronephrosis with renal and ureteral calculous obstruction (2019) Acute UTI Sepsis Calculus, renal Hydronephrosis Family History Family History Father Throat cancer Mother Melanoma Leukemia Family history of problems with anesthesia: No Surgical History Surgical History S/P right rotator cuff repair Hx of colonoscopy Hx of repair of right rotator cuff (~2014) History of left inguinal hernia repair (~2020) History of right inguinal hernia repair (08/28/18) History of bilateral inguinal hernia repair (06/28/17) History of arthroscopy of left knee History of Problems with Anesthesia: No Social History Social History Household Members: Spouse and Children Housing: House Are you a primary ocular care technologist to a significant other at home: No Do you presently have visiting nurse or other home services: No Comment: hematoma right thigh, resolved no fracture with 12/2024 fall, no head strike Patient Tobacco Use Status: Former Tobacco user Tobacco use type: Cigarette Use of substances other than those prescribed or required for medical reasons: No Are you DNR?: No Advance Directives: No Advance Directives Information Provided: Yes service: Yes Current occupational status: retired [employer] Allergies Allergy/AdvReac Type Severity Reaction Status Date / Time No Known Allergies (No Known Allergy Verified 06/18/25 10:39 Allergies*) Home Medications ?Medication ?Instructions ?Recorded ?Confirmed ?Last Taken ?Type diltiazem HCl 120 mg 120 mg PO DAILY 07/14/20 06/19/25 06/19/25 History capsule,extended release 24 hr (Cartia XT) propranolol 80 mg capsule,24 80 mg PO NEEDED PRN Tremor(S) 07/15/20 06/19/25 06/19/25 History hr,extended release tamsulosin 0.4 mg capsule 0.4 mg PO BEDTIME 12/26/23 06/19/25 Unknown History rivaroxaban 20 mg tablet (Xarelto) 20 mg PO QPM 01/29/25 06/19/25 06/15/25 History flecainide 150 mg tablet 150 mg PO BID 02/26/25 06/19/25 06/19/25 History Exam Pertinent Lab Results Pertinent Lab Results: Laboratory Tests 02/27/25 05:19 WBC 11.9 H Hgb 10.4 L D Hct 30.3 L D Plt Count 185 Sodium 136 Potassium 4.2 Chloride 108 Carbon Dioxide 20 L BUN 16 Creatinine 0.80 Narrative Narrative: ECHO 01/2025 Conclusions: - Normal left ventricular cavity size. There is normal left ventricular wall thickness. The left ventricular systolic function is borderline reduced. The visually estimated ejection fraction is between 45-50%. - E/E prime ratio is between 8 and 15 consistent with indeterminate filling pressures. - The basal inferior segment is akinetic. - Mildly increased right ventricular cavity size. There is normal right ventricular systolic function. - The left atrium is moderately dilated. - There is mild dilatation of the sinuses of Valsalva measuring 4.21 cm and mild dilatation of the ascending aorta measuring 4.10 cm. Airway Mallampati Class: III TM Dist: >3cm Neck ROM: Full Assessment and Plan Assessment Anesthesia Assessment: Chart Reviewed Final Anesthetic Review Family History of Problems with Anesthesia: No History of Problems with Anesthesia: No Documented by User: Saray Milian MD 06/19/25 09:05 [facility] Past Medical History Medical History Wears hearing aid in both ears [place] (hard of hearing) History of cardioversion BPH (benign prostatic hyperplasia) Hx MRSA infection (07/2018) Tremor Non-Hodgkin lymphoma Afib Hydronephrosis with renal and ureteral calculous obstruction (2019) Acute UTI Sepsis Calculus, renal Hydronephrosis Family History Family History Father Throat cancer Mother Melanoma Leukemia Surgical History Surgical History S/P right rotator cuff repair Hx of colonoscopy Hx of repair of right rotator cuff (~2014) History of left inguinal hernia repair (~2020) History of right inguinal hernia repair (08/28/18) History of bilateral inguinal hernia repair (06/28/17) History of arthroscopy of left knee Social History Social History Household Members: Spouse and Children Housing: House Are you a primary ocular care technologist to a significant other at home: No Do you presently have visiting nurse or other home services: No Comment: hematoma right thigh, resolved no fracture with 12/2024 fall, no head strike Patient Tobacco Use Status: Former Tobacco user Tobacco use type: Cigarette Use of substances other than those prescribed or required for medical reasons: No Are you DNR?: No Advance Directives: No Advance Directives Information Provided: Yes service: Yes Current occupational status: retired Meds Allergies Allergy/AdvReac Type Severity Reaction Status Date / Time No Known Allergies (No Known Allergy Verified 06/18/25 10:39 Allergies*) Home Medications ?Medication ?Instructions ?Recorded ?Confirmed ?Last Taken ?Type diltiazem HCl 120 mg 120 mg PO DAILY 07/14/20 06/19/25 06/19/25 History capsule,extended release 24 hr (Cartia XT) propranolol 80 mg capsule,24 80 mg PO NEEDED PRN Tremor(S) 07/15/20 06/19/25 06/19/25 History hr,extended release tamsulosin 0.4 mg capsule 0.4 mg PO BEDTIME 12/26/23 06/19/25 Unknown History rivaroxaban 20 mg tablet (Xarelto) 20 mg PO QPM 01/29/25 06/19/25 06/15/25 History flecainide 150 mg tablet 150 mg PO BID 02/26/25 06/19/25 06/19/25 History Exam Airway Heart: rrr Lungs: cta Assessment and Plan Assessment Anesthesia Assessment: Anesthesia Plan Discussed Final Anesthetic Review NPO: Yes ASA Class: III Final Preanesthetic Review: No Changes in Pt Med Stat, Meds/Allgs Chart Reviewed, Consent Obtained/Reviewed and Anes Risks/Benef Reviewed Patient Risk: Intermediate Procedure Risk: Low Anesthetic Plan Anesthetic Plan: GA, Regional Block and Agree w/ Assess. and Plan Disposition: Standard PACU
[2025-06-19 08:04] VITALS: BMI 27.6
--- NOTE | 2025-06-19 08:20 | MHC.SHP ---
Pre-Procedural Eval Section A - 24 Hr Update-Section A only Date of Service: 06/19/25 The patient is an INPATIENT: No Changes since office visit: No Cold of Flu in the past 2 weeks, No New Medical Problems, No Changes in Medication and No Patient answered all questions The patient has been examined within 24 hours of the surgical procedure. The History & Physical has been completed within 30 days and I have reviewed it.: Yes Section B - Complete if H&P > 30 days Chief Complaint: Presence of right artificial shoulder joint Allergies: Allergies Allergy/AdvReac Type Severity Reaction Status Date / Time No Known Allergies (No Known Allergy Verified 06/18/25 10:39 Allergies*) Plan I have reviewed the history and physical and performed a pertinent physical examination on my patient. No changes have occurred unless specified. Time Spent With Patient Time: Total time managing care of this patient today ____ minutes.
[2025-06-19 08:25] VITALS: BP 128/82; PULSE 67; RESP 16; TEMP 36.4; O2SAT 96
[2025-06-19] MEDS: Lactated Ringers 1,000 ML 100 ML IVCONT (08:42)
[2025-06-19 10:25] VITALS: BP 89/58; PULSE 70; RESP 12; TEMP 36.4; O2SAT 97
[2025-06-19 10:30] VITALS: BP 100/58; PULSE 69; RESP 16; O2SAT 97
[2025-06-19 10:35] VITALS: BP 99/58; PULSE 69; RESP 16; O2SAT 97
[2025-06-19 10:40] VITALS: BP 96/63; PULSE 73; RESP 16; O2SAT 94
[2025-06-19 10:54] VITALS: BP 96/65; PULSE 67; RESP 16; TEMP 36.1; O2SAT 94
--- NOTE | 2025-06-19 16:23 | P.BOP_ITS ---
Brief Operative Note Date of Service: 06/19/25 Pre-op diagnosis: Right shoulder infection Post-op diagnosis: same Procedure: Open irrigation and debriement, deep, right shoulder Surgeon: Clint Thomas MD Anesthesia: GLMA and regional Was an Asphalt Distributor Tender used for this Procedure?: Yes Asphalt Distributor Tender: Leslie Browning Estimated blood loss (mL): 150 IV fluids (mL): 700 Pathology: none sent Condition: stable Disposition: PACU
--- NOTE | 2025-06-28 09:59 | P.OP_ITS ---
Operative Note Operative Note Date of Service: 06/19/25 Narrative: Date of Service: 06/19/25 Pre-op diagnosis: Right shoulder infection Post-op diagnosis: same Procedure: Open irrigation and debridement, deep, right shoulder Surgeon: Clint Thomas MD Anesthesia: GLMA and regional Was an [employer] used for this Procedure?: Yes [employer]: Leslie Browning Estimated blood loss (mL): 150 IV fluids (mL): 700 Pathology: none sent Condition: stable Disposition: PACU Indications: 75 yo M who presented 4 mo post op with purulent discharge. Aspiration grew C Acnes. We discussed treatment options. At this time we elected to irrigate and trial a course of PO linezolid. I did tell him that this is extremely unlikely to be curative but not impossible. Procedure in detail: Patient was brought to the operating room and once under anesthesia was placed in a modified beach chair position and prepped and draped in standard sterile fashion. All bony prominences were well-padded. A time-out was callled to identify proper site, proper procedure and iv abxs were administered. I began by opening up the prior arthroplasty incision. There was abundant purulence that was mostly containbed within the subcutaneous space. I debrided mechanically and irrigated. Unfortunately there was a sinus into into the joint superiorly under the acromion. The subscapularis and capsule repair was intact but the fiberwire sutures were prominent and I had to take this down to fully irrigate. The fiber wire was removed and there was no obvious fluid collection and the joint appeared normal. I debrided any loose tissue and irrigated with ~ 9 liters saline via pulse lavage and then a 3 minute iodine soak. I then closed with mattress nylon. Patient was placed in a sterile dressing and extubated and brought to the recovery room in stable condition. There were no known complications.
== END 2025-06-19 11:31 | disposition home or self-care (01) ==
LOC: HO.SSS 07:53
PROVIDERS: PCP Internal Medicine; Visit Provider Orthopaedic Surgery
PROC: (CPT 29805; principal; 2025-06-19 10:50)
DX: T84.59XA Infection and inflammatory reaction due to other internal joint prosthesis, initial encounter (principal); B96.83 Acinetobacter baumannii as the cause of diseases classified elsewhere; Y79.2 Prosthetic and other implants, materials and accessory orthopedic devices associated with adverse incidents; Z96.611 Presence of right artificial shoulder joint; I48.91 Unspecified atrial fibrillation; C85.90 Non-Hodgkin lymphoma, unspecified, unspecified site; Z92.21 Personal history of antineoplastic chemotherapy; Z86.14 Personal history of Methicillin resistant Staphylococcus aureus infection; H91.93 Unspecified hearing loss, bilateral; R25.1 Tremor, unspecified; Z87.442 Personal history of urinary calculi; Z79.01 Long term (current) use of anticoagulants; Z98.890 Other specified postprocedural states; Z87.891 Personal history of nicotine dependence
CPT/HCPCS: 23040; A6260; J0131; J0665; J1100; J2003; J2250; J2405; J2704; J3010; J3374

== ENCOUNTER → 2025-06-19 07:52 | Outpatient (BNV) | payer MEDICARE, SELFPAY | PROVIDERS: PCP Internal Medicine; Visit Provider Orthopaedic Surgery | DX: T84.59XA Infection and inflammatory reaction due to other internal joint prosthesis, initial encounter (principal); Z96.611 Presence of right artificial shoulder joint | CPT/HCPCS: 23040 ==

== ENCOUNTER 2025-06-27 12:59 | Outpatient (REF) | payer MEDICARE, SELFPAY ==
[2025-06-27 15:39] LABS: Alanine Aminotransferase 30 U/L (0-40); Albumin Level 4.0 g/dL (3.5-5.0); Alkaline Phosphatase 108 U/L (39-117); Aspartate Amino Transferase 26 U/L (5-37); Total Protein 7.4 g/dL (6.5-8.0)
== END 2025-06-27 13:00 | disposition home or self-care (01) ==
LOC: HO.LAB 12:59
PROVIDERS: PCP Internal Medicine; Visit Provider Physician Assistant
DX: M00.9 Pyogenic arthritis, unspecified (principal); Z96.611 Presence of right artificial shoulder joint; Z79.2 Long term (current) use of antibiotics
CPT/HCPCS: 36415; 80076; 99212

== ENCOUNTER 2025-06-27 12:59 | Outpatient (AMB) | payer MEDICARE, SELFPAY ==
--- OUTSIDE RECORDS SUMMARY | 2024-01-23 08:15 | XMS_ITS ---
Author Organization Richard Castro MD Address [address] [place] [phone] Care Team Providers Care Soil Biology Teacher Name Role Phone Richard Castro Primary Care Provider Allergies No Known Allergies REASON FOR VISIT COUGHING ONE WEEK, WHEEZING and fatigue, CELL PHONE [phone], WILL TEST FOR COVID THIS MORN, tested [...] Location Date Provider Diagnosis Richard Castro MD [address] [place] [address] [place] [phone] 01/23/2024 Richard Castro Bronchitis J40 Assessments Encounter [...] 07:30:00 AM, [address], [address], [place], [place], [phone], Provider Name:Richard Chatman ier, 07/18/2025 01:00:00 PM, 10 [facility], [address], [place], [place], [phone], Progress Notes * Joselito HURD ADOB:[birth year] (73 yo M)Acc No.[id number]:01/23/2024 Patient: Joselito Garcia Provider: Del Castro MD :1950 A ge:73 Y S ex:Male Date:01/23/2024 Address:[address] [place], [place] [phone] Subjective: * Chief Complaints: * C OUGHING ONE WEEK, WHEEZING and fatigueCELL PHONE [phone] TEST FOR COVID THIS MORNtested for Covid [...] 01/23/2024 Generated for Per deleon/Amandeep/Maninder on: 1 08/27/2024 04:15 PM EST History and Physical Notes * HPI (History of Present Illness) Category Sub-Category Detail Notes Category Not es Symptom(s) Telehealth Location of [facility] rendering services:: [address], [address] [...]
--- OUTSIDE RECORDS SUMMARY | 2024-07-03 03:30 | XMS_ITS ---
Author Organization Richard Castro MD Address [address] [place], [place] [phone] Care Team Providers Care Grain Picker Name Role Phone Richard Castro Primary Care Provider Results Component Value Reference Range Notes Complete Blood Count Auto Di ff Reviewed date:07/03/2024 08:00:30 PM Interpretation: Performing Lab:[facility], [address] [place] [phone] Notes/Report: White Blood Count 7.5 4.8-10.8 X10*3/uL [...] NRBC Abs Auto 0.000 0.0-0.012 X10*3/uL Comprehensive [place]. Panel Fa st Reviewed date:07/03/2024 08:16:51 PM Interpretation: Performing Lab:[facility], [address] [place] [phone] Notes/Report: Sodium 138 135-145 mmol/L Potassium 4.1 [...] Panel Reviewed date:07/03/2024 08:01:49 PM Interpretation: Performing Lab:[facility], [address] [place] [phone] Notes/Report: Triglycerides 98 <150 mg/dL Desirable Triglyceride: [...] date:07/17/2024 04:52:07 PM Interpretation:see back 07-17-2024 Performing Lab:[facility], [address] [place] [phone] Notes/Report: PSA,Total (Free>4and<10) 5.94 0.00-4.00 ng/mL PSA methodology: Burgess Alinity i Chemiluminescent Microparticle Immunoassay (CMIA) UA ClnCatch+Micro w/rflx Cul t Reviewed date:07/03/2024 08:03:57 PM Interpretation: Performing Lab:[facility], [address] [place] [phone] Notes/Report: Urine, Clean Catch Color Urine Yellow Appearance Urine Clear PH 5.5 5.0-9.0 Glucose Urine UA Negative Negative mg/dL Urine Blood Negative Negative Specific [place] - Urine 1.015 1.005-1.025 Urine Protein Negative [...] Date Provider Diagnosis Richard Castro MD [address] [place], [place] [phone] 07/03/2024 Richard Castro Elevated PSA R97.20 ; Encounter for immunization Z23 and Pure hypercholesterolemia E78.00 Assessments Encounter Date Diagnosis (ICD Code) Assessment Notes Treatment Notes Treatment Clinical Notes Section Notes 07/03/2024 Elevated PSA (ICD-10 - R97.20) 07/03/2024 Encounter for immunization (ICD-10 - Z23) 07/03/2024 Pure hypercholesterolemia (ICD-10 - E78.00) Plan Of Treatment Next Appt Details Provider Name:Richard Chatman ier, 07/05/2025 07:30:00 AM, [address] [place] [address], [address], [phone], Provider Name:Richard Garcia Grettaaneudy ier, 07/18/2025 01:00:00 PM, [address] [place] [address], [place] [address], [place], [place], [phone], Progress Notes * Joselito HURD ADOB:[birth year] (75 yo M)Acc No.[id number]:07/03/2024 Progress Note Patient: Joselito HANNA Provider: Del Castro MD :1950 A ge:74 Y S ex:Male Date:07/03/2024 Address:[address] [place] [address] Subjective: * Chief Complaints: * 1 . [...] - 07/03/2024 08:30 AM) L AB: Comprehensive [place]. Panel Fast (Collection Date & Time - [...] FLU VAC NO FEE SCHED SAME DAY, [address] VENIPUNCT, ROUTINE* * * The named appointment provid er may or may not be the originator of this progress note, and it is not deemed complete until electronically signed by the appointment provider. Sign off status: Pending * Provider: Del Castro MD Date: 09/02/2023 Generated for Per deleon/Amandeep/Maninder on: 08/27/2024 04:18 PM EST
--- OUTSIDE RECORDS SUMMARY | 2024-07-17 08:30 | XMS_ITS ---
Author Organization Richard Castro MD Address [address] [place] [phone] Care Team Providers Care Pole Shaver Name Role Phone Richard Castro Primary Care [...] Date Provider Diagnosis Richard Castro MD [address] [place] [address] [address] [place], [place] [phone] 07/17/2024 Richard Castro Essential tremor G25 .0 [...] or maybe wait/ get last note from [facility] 07/17/2024 Colon cancer screeni ng (ICD-10 [...] or maybe wait/ get last note from [facility] Colon cancer screening guaiac negative Depression screening negative screen Next Appt Details Follow Up: 1 Year, Reason: Provider Name:Richard escamilla, 07/05/2025 07:30:00 AM, [address] [place] [address], [address] [place] [address], [phone], Provider Name:Richard escamilla, 07/18/2025 01:00:00 PM, [address] [place] [address], [place] [address], [place], [place], [phone], Progress Notes * Joselito HURD ADOB:[birth year] (74 yo M)Acc No.[id number]:07/17/2024 Patient: Joselito Garcia Provider: Del Castro MD :1950 A ge:74 Y S ex:Male Date:07/17/2024 [place] [address] Subjective: * Chief Complaints: * R eview [...] 01-23-24. * P ast Orders: L ab:Comprehensive [place]. Panel Fast (Order Date - 07/03/2024) (Collection [...] mg/dL Urine Blood Negative Negative - Specific [place] - Urine 1.015 1.005-1.025 - Urine Protein [...] or maybe wait/ get last note from [facility] 3. C olon cancer screening L AB: Occult Blood, Stool, Guaiac N egative Value Reference Range O ccult Blood, Stool, Guaiac Neg Notes: guaiac negative??4.?Depression screening? Notes: negative screen?? * Procedure Codes: 8 2270 TEST FOR BLOOD, FECES * Follow Up: 1 Year * * Sign off status: Completed true * Provider: Del Castro MD Date: 09/17/2023 Generated for Per deleon/Amandeep/Maninder on: 08/27/2024 04:17 PM EST History and Physical Notes * [...]
--- OUTSIDE RECORDS SUMMARY | 2024-12-24 06:00 | XMS_ITS ---
Author Organization Richard Castro MD Address [address] [place], [place] [phone] Care Team Providers Care Associate Director Of Development Name Role Phone Richard Castro Primary Care Provider [phone] Allergies No Known Allergies Results Component Value Reference Range Notes Complete Blood Count Auto Di ff Reviewed date:12/24/2024 05:16:55 PM Interpretation: Performing Lab:[facility], [address] [place] [phone] Notes/Report: White Blood Count 8.2 4.8-10.8 X10*3/uL [...] Panel Reviewed date:12/24/2024 05:16:08 PM Interpretation: Performing Lab:[facility], [address] [place] [phone] Notes/Report: Sodium 137 135-145 mmol/L Potassium 4.2 [...] 02-12-25 needs CBC BMP EKG going to Automotive Glass Mechanic 01-01-25 to be cleared, Patientfound a mass [...] Location Date Provider Diagnosis Richard Castro MD [address] [place] [address] [address] [place], [place] [phone] 12/24/2024 Richard Castro Mass in neck R22.1 ; Right shoulder pain, unspecified chronicity M25.511 and Preop examination Z01.818 Assessments Encounter Date Diagnosis (ICD Code) Assessment Notes Treatment Notes Treatment Clinical Notes Section Notes 12/24/2024 Mass in neck (ICD-10 - R22.1) THE ORDER WAS FAXED TO [facility] [place] [facility], pending diagnsotic testing 12/24/2024 Right shoulder pain, unspecified chronicity (ICD-10 - M25.511) 12/24/2024 Preop examination (ICD-10 - Z01.818) at this point i don't find anything medically to prevent his shoulder surgery if cleared by his dust sampler Plan Of Treatment Treatment Notes Assessment Notes Mass in neck THE ORDER WAS FAXED TO [facility], pending diagnsotic testing Preop examination at this point i don' t find anything medically to prevent his shoulder surgery if cleared by his dust sampler Pending Test Test Name Order Date US soft tiss head and/or neck 12/24/2024 Next Appt Details Follow Up: after us, Reason: Provider Name:Richard escamilla, 07/05/2025 07:30:00 AM, [address] [place] [address], [address], [place], [phone], Provider Name:Richard saldivarr, 07/18/2025 01:00:00 PM, [address] [place] [address], [address], [place], [place], [phone], Progress Notes * Joselito HURD ADOB:[birth year] (74 yo M)Acc No.[id number]:12/24/2024 Patient: Joselito HANNA Provider: Del Castro MD :1950 A ge:74 Y S ex:Male Date:12/24/2024 Address:[address] [place] [address] Subjective: * Chief Complaints: * r shoulder DR Thomas 02-12-25 needs CBC BMP EKG going to Automotive Glass Mechanic 01-01-25 to be clearedPatient found a mass [...] his right side. went to Urgent on [address] H ave you had two or [...] his shoulder surgery if cleared by his dust sampler * Procedure Codes: 3 6415 VENIPUNCT, ROUTINE* * Follow Up: a fter us * * Sign off status: Completed true * Provider: Del Castro MD Date: 0 12/24/2024 Generated for Per deleon/Amandeep/eTransmitting on: 1 08/27/2024 04:17 PM EST History and Physical [...] his right side. went to Urgent on [address]. Have you had two or more [...]
--- OUTSIDE RECORDS SUMMARY | 2025-01-15 04:25 | XMS_ITS ---
Author Organization Richard Castro MD Address [address] [place] [phone] Care Team Providers Care A And P Mechanic Name Role Phone Richard Castro Primary Care Provider [phone] REASON FOR VISIT FYI US neck cancelled Encounters Encounter Location Date Provider Diagnosis Richard Castro MD 10 [facility] [address] [place] [phone] 01/15/2025 Richard Castro Plan Of Treatment Next Appt Details Provider Name:Richard Chatman ier, 07/05/2025 07:30:00 AM, [address] [place] [address], [address] [place] [address], [phone], Provider Name:Richard Chatman iemelia, 07/18/2025 01:00:00 PM, [address] [place] [address], [address] [place] [address], [phone], Progress Notes * Joselito HURD ADOB:[birth year] (74 yo M)Acc No.[id number]:01/15/2025 Patient: Jose MESSERREE Mayito :1950 A ge:74 Y S ex:Male Address:[address] [place] [address] * true * Date: Generated for Per deleon/Amandeep/Kendricksmitting on: 08/27/2024 04:17 PM EST
--- OUTSIDE RECORDS SUMMARY | 2025-02-28 08:57 | XMS_ITS ---
Author Organization Richard Castro MD Address [address] [place] [address] [phone] Care Team Providers Care Guest Relations Representative Name Role Phone Richard Castro Primary Care Provider [phone] REASON FOR VISIT discharge Encounters Encounter Location Date Provider Diagnosis Richard Castro MD 10 [facility] [address] [place] [phone] 02/28/2025 Richard Castro Plan Of Treatment Next Appt Details Provider Name:Richard escamilla, 07/05/2025 07:30:00 AM, [address] [place] [address], [address], [phone], Provider Name:Richard escamilla, 07/18/2025 01:00:00 PM, [address] [place] [address], [address], [phone], Progress Notes * Joselito HURD ADOB:[birth year] (75 yo M)Acc No.[id number]:02/28/2025 Patient: Joselito HANNA :1950 A ge:75 Y S ex:Male Address:[address] [place] [address] * true * Date: Generated for Per deleon/Amandeep/Kendricksmitting on: 08/27/2024 04:15 PM EST
--- NOTE | 2025-06-27 13:07 | A.OFFVIS_ITS ---
Intake Visit Reasons: PO- RT shoulder I&D 06/19/25 NE Intake Note: Joselito is a 75 year old left hand dominant male who presents today for a wound check status post right shoulder I&D, performed by Dr. Thomas on 06/19/25. Patient reports that bleeding through his bandages. Allergies No Known Allergies (No Known Allergies*) Allergy (Verified 06/18/25 10:39) Medication List - Last Reconciled 06/27/25 by Js Marquez PA-C diltiazem HCl CD (Cartia XT) 120 mg PO DAILY flecainide 150 mg PO BID linezolid 600 mg PO BID 7 days oxycodone-acetaminophen 5-325 mg (Percocet) 1 tab PO Q4-6H PRN 7 days propranolol ER 80 mg PO NEEDED PRN rifampin 300 mg PO Q12H 60 days rivaroxaban (Xarelto) 20 mg PO QPM tamsulosin 0.4 mg PO BEDTIME HPI HPI PO- RT shoulder I&D 06/19/25 NE: Details: 75-year-old male returns to the office today status post right shoulder I and D on 06/19/2025. The patient comes in today with concerns to his bandage becoming saturated and needing to change it 1 to 2 times a day. Denies fever or chills. He has been taking the linezolid but not rifampin. [facility] Medical History Wears hearing aid in both ears [place] (hard of hearing) History of cardioversion BPH (benign prostatic hyperplasia) Hx MRSA infection (07/2018) Tremor Non-Hodgkin lymphoma Afib Hydronephrosis with renal and ureteral calculous obstruction (2019) Acute UTI Sepsis Calculus, renal Hydronephrosis Surgical History S/P right rotator cuff repair Hx of colonoscopy Hx of repair of right rotator cuff (~2014) History of left inguinal hernia repair (~2020) History of right inguinal hernia repair (08/28/18) History of bilateral inguinal hernia repair (06/28/17) History of arthroscopy of left knee Family History Father Throat cancer Mother Melanoma Leukemia Social History Household Members: Spouse and Children Housing: House Are you a primary director of patient care to a significant other at home: No Do you presently have visiting nurse or other home services: No 75 years or older and lives alone: No Comment: hematoma right thigh, resolved no fracture with 12/2024 fall, no head strike Patient Tobacco Use Status: Former Tobacco user Tobacco use type: Cigarette service: Yes Current occupational status: retired Review of Systems Const All systems reviewed & are unremarkable except as noted in HPI and below Physical Exam Extrem Other: Right shoulder incision is clean and intact. There is scant serous fluid draining from the shoulder onto the gauze. Results Reviewed Results Reviewed: Name: Joselito Hurd Sr Age/Sex: 75/M : 1950 Unit#: [id number] Attend Dr: Clint Thomas MD Re06/13/25 Status: DEP REF Location: [facility] Disch: Specimen: [id number] Collected: 06/13/25 Status: COMP Req#: [id number] Received: 06/13/25 Source: Aspirate Sp Desc: Aspirate Subm Dr: Clint Thomas MD Ordered: Anaerobic Cult, Routine Cult GS Comments: RIGHT SHOULDER PER R/O C.ACNES Procedure Result Verified Gram stain Final 06/14/25-0802 Gram stain results: 4+ polys 4+ red blood cells No organisms seen Routine Culture Final 06/15/25-0956 No growth after 2 days Anaerobic Culture Final 06/20/25-1001 Organism 1 Cutibacterium acnes Quantity 1+ B-Lac Susceptibility Beta-lactamase not produced; suggests PEN/AMP susceptibility Assessment & Plan Assessment & Plan (1) Status post reverse total arthroplasty of right shoulder: Code(s): Z96.611 - Presence of right artificial shoulder joint Category: Surgical (2) Infection of shoulder: Code(s): M00.9 - Pyogenic arthritis, unspecified Category: Medical Plan I reassured the patient the drainage is normal especially since he is on a blood thinner. I applied a compression dressing in the office today and send him home with supplies to do the same at home. He will see us back in 1 week for routine postop. I sent a refill of his linezolid to the pharmacy along with rifampin. I also put an order in for LFTs to be done at the lab. Patient will see me back in 1 week as discussed. Orders: Orders Liver Panel Today Z79.2 - care home (current) use of antibiotics Medications: New rifampin 300 mg PO Q12H 120 caps 0RF 60 days Changed From linezolid 600 mg PO BID 84 tabs 0RF 42 days To linezolid 600 mg PO BID 14 tabs 0RF 7 days Coding Level of Care Code Global (26266) Diagnoses Status post reverse total arthroplasty of right shoulder Z96.611 Infection of shoulder M00.9
--- OUTSIDE RECORDS SUMMARY | 2025-06-27 16:17 | XMS_ITS | Clinical Summary ---
Author Organization [facility] Address [address] [address] Phone Care Team Providers Care Director Work Name Role Phone Richard Castro MD Primary [...] and now has another point to his [id number] score now making him by 2 which [...] Type Department Care Team Description 06/18/2025 Telephone [facility] [address], [address] [place] [address] Jeniffer Joseph DNP 05/17/2025 1:20 PM EDT Office Visit [facility] [address], [address] [place] [address] Dianelys Fonseca MD Paroxysmal atrial fibrillation (Primary Dx); Current use of group home anticoagulation 05/13/2025 4:00 PM EDT Office Visit [facility] [address] Floor, [address] [place] [address] Kyle Montanez MD Other chest pain (Primary [...] Care Team (Late st Contact Info) Description 09/13/2025 10:00 AM EST Office Visit [facility] [address] [place] [address] 3rd Floor, [address] [place] [id number] Roxy Burnette DNP 22 [facility], [address] [address] Health Maintenance Due Date Last Done Comments Adult Td,Tdap Booster 1950 LIPID PANEL 1950 DEPRESSION SCREENING 1961 HEPATITIS C SCREENING 1967 ZOSTER VACCINES (1 of 2) 1999 CREATININE LEVEL 09/10/2023 09/10/2022 RSV VACCINE (1 - 1-dose 75+ series) 02/25/2024 INFLUENZA VACCINE (#1) 2025 2, 07/13/2021, 04/22/2020, Additional history exists COVID-19 VACCINE ( season) 2025 07/20/2021, 11/12/2020, 10/22/2020 PNEUMOCOCCAL VACCINES (50+ years) Completed 08/20/2021, 05/27/2017, 01/28/2016 SMOKING STATUS SCREENING (Once After 26 Yrs) Completed 05/17/2025 HEPATITIS A VACCINES Aged Out No long er eligible based on patient's age to complete this topic HIB VACCINES Aged Out No longer eligi ble based on patient's age to complete this topic IPV VACCINES Aged Out No longer eligi ble based on patient's age to complete this topic MENINGOCOCCAL VACCINES (ACWY) Aged Out No longer eligible based on patient's age to complete this topic MENINGOCOCCAL VACCINES (B) Aged Out N o longer eligible based on patient's age to complete this topic Medical Devices Implanted Type Area Negative Spotter Device Identifier Shelf Expiration Date Model / Serial / Lot Mesh Mesh Pin Pin Right: Arm Procedures Procedure Name Priority Date/Time Associated Diagnosis Comments BASIC METABOLIC PANEL (BMP) Routine 09/10/2022 11:13 AM EST Persistent atrial fibrillation from Last 3 Months or Most Recently Relevant to Health Maintenance Results * (ABNORMAL) Basic metabolic panel (09/10/2022 11:13 AM EST) SODIUM 138 133 - 146 mmol/L [facility] CHLORIDE 102 96 - 108 mmol/L [facility] POTASSIUM 4.8 3.3 - 5.1 mmol/L [facility] CO2 27 21 - 35 mmol/L [facility] BUN 21(H) 6 - 19 mg/dL [facility] CREATININE 1.10 0.5 - 1.5 mg/dL [facility] GLUCOSE 93 70 - 99 mg/dL [facility] CALCIUM 9.2 8.4 - 10.3 mg/dL [facility] EGFR 71 >59 mL/min/1.7 3m2 [facility] Comment:Estimated glomerular filtration rate calculated using the CKD-EPI refit equation. ANION GAP 14 10 - 20 mmol/L [facility] Blood 09/10/2022 11:1 3 AM EST 09/10/2022 4:07 PM EST us Edenilson Stapleton MD LAB BLOOD BKR ORDERABLES Fin al Result [facility] [address] [place], [place] [phone] from Last 3 Months or Most Recently Relevant to Health Maintenance Insurance [employer] MEDEX SUPPLEMENT MEDICARE PART A & B [employer] MEDEX SUPPLEMENT MEDICARE PART A & B MEDICARE PART A & B MEDICARE PART A & B [employer] MEDEX SUPPLEMENT MEDICARE PART A & B [employer] MEDEX SUPPLEMENT MEDICARE PART A [place] [address] [employer] MEDEX SUPPLEMENT MEDICARE PART A & B [employer] MEDEX SUPPLEMENT MEDICARE PART A & B [employer] MEDEX SUPPLEMENT MEDICARE PART A & B Care Teams Director Work Relationship Specialty Start Date End Date Richard Castro MD [address] [place] [address] [place] [address] PCP - General 06/02/17 Additional Source Comments The information contained in this document represents components of the legal health record. It is not the complete legal health record.[facility]
--- OUTSIDE RECORDS SUMMARY | 2025-06-27 16:18 | XMS_ITS | Encounter Summary ---
Author Organization [facility] Address [address] [facility] [address] [place] [address] Phone Care Team Providers Care Dehydration Plant Operator Name Role Phone Richard Castro MD Primary Care Provider Encounter Details Date Type Department Care Team (Latest Contact Info) Description 06/04/2017 Ancillary Orders [facility] [address] Floor, [address] [place] [address] Av Orozco MD [address] [place] [phone] Diagnosis unknown Social History Tobacco Use Types [...] Description 09/13/2025 10:00 AM EST Office Visit [facility] [address] Floor, [address] [place] [address] Roxy Burnette DNP [address] [place] [address], [address] [address] documented as of this encounter Visit Diagnoses Diagnosis Diagnosis unknown documented in this encounter Care Teams Dehydration Plant Operator Relationship Specialty Start Date End Date Richard Castro MD [address] [place] [address] [place] [address] PCP - General 06/02/17 documented as of this encounter Additional Source Comments The information contained in this document represents components of the legal health record. It is not the complete legal health record.[facility]
--- OUTSIDE RECORDS SUMMARY | 2025-06-27 16:18 | XMS_ITS | Encounter Summary ---
Author Organization [facility] Address [address] [facility] [address] [place] [phone] Phone Care Team Providers Care Door Maker Name Role Phone Richard Castro MD Primary Care Provider Encounter Details Date Type Department Care Team (Late Contact Info) Description 08/26/2022 Procedure Pass [facility] [address] [place] [address] Social History Tobacco Use Types Packs/Day Years [...] Department Care Team (Late Contact Info) Description 09/13/2025 10:00 AM EST Office Visit [facility] [address] [place] [address] [address]rd Floor, [address] [place] [id number] Roxy Burnette DNP [address] [facility], [address] [address] documented as of this encounter Visit Diagnoses Not on filedocumented in this encounter Care Teams Door Maker Relationship Specialty Start Date End Date Richard Castro MD [address] [place] [address] [place] [address] PCP - General 06/02/17 documented as of this encounter Additional Source Comments The information contained in this document represents components of the legal health record. It is not the complete legal health record.[facility]
--- OUTSIDE RECORDS SUMMARY | 2025-06-27 16:18 | XMS_ITS | Encounter Summary ---
Author Organization [facility] Address [address] [facility] [address] [place] [address] Phone Care Team Providers Care Janitor Custodian Name Role Phone Richard Castro MD Primary Care Provider Encounter Details Date Type Department Care Team (Latest Contact Info) Description 11/15/2017 Ancillary Orders [facility] [address] Floor, [address] [place] [address] Av Orozco MD [address] [place] [address] Paroxysmal atrial fibrillation Social History Tobacco Use [...] Description 09/13/2025 10:00 AM EST Office Visit [facility] [address] Floor, [address] [place] [address] Roxy Burnette DNP [address] [place] [address], [address] [address] documented as of this encounter Results * TTE COMPREHENSIVE (11/17/2017 10:06 AM EDT) Anatomical Region Laterality Modality Heart Ultrasound us Av Orozco MD CV ECHO ORDERABLES Final Result documented in this encounter Visit Diagnoses Diagnosis Paroxysmal atrial fibrillation Atrial fibrillation documented in this encounter Care Teams Janitor Custodian Relationship Specialty Start Date End Date Richard Castro MD [address] [place] [address] Dr CHASE [address] [place] [id number] PCP - General 06/02/17 documented as of this encounter Additional Source Comments The information contained in this document represents components of the legal health record. It is not the complete legal health record.[facility]
--- OUTSIDE RECORDS SUMMARY | 2025-06-27 16:18 | XMS_ITS | Patient Health Record ---
Author Organization Richard Castro MD Address [address] [place], [place] [id number] Care Team Providers Care Salvage Supervisor Name Role Phone Richard Castro Primary Care Provider [phone] Allergies No Known Allergies Results Component Value Reference Range Notes Complete Blood Count Auto Di ff Reviewed date:07/03/2024 08:00:30 PM Interpretation: Performing Lab:[facility], [address] [place] [phone] Notes/Report: White Blood Count 7.5 4.8-10.8 X10*3/uL [...] NRBC Abs Auto 0.000 0.0-0.012 X10*3/uL Comprehensive [place]. Panel Fa st Reviewed date:07/03/2024 08:16:51 PM Interpretation: Performing Lab:[facility], [address] [place] [phone] Notes/Report: Sodium 138 135-145 mmol/L Potassium 4.1 [...] Panel Reviewed date:07/03/2024 08:01:49 PM Interpretation: Performing Lab:[facility], [address] [place] [phone] Notes/Report: Triglycerides 98 <150 mg/dL Desirable Triglyceride: [...] date:07/17/2024 04:52:07 PM Interpretation:see back 07-17-2024 Performing Lab:[facility], [address] [place] [phone] Notes/Report: PSA,Total (Free>4and<10) 5.94 0.00-4.00 ng/mL PSA methodology: Burgess Alinity i Chemiluminescent Microparticle Immunoassay (CMIA) UA ClnCatch+Micro w/rflx Cul t Reviewed date:07/03/2024 08:03:57 PM Interpretation: Performing Lab:[facility], [address] [place] [phone] Notes/Report: Urine, Clean Catch Color Urine Yellow Appearance Urine Clear PH 5.5 5.0-9.0 Glucose Urine UA Negative Negative mg/dL Urine Blood Negative Negative Specific Epworth - Urine 1.015 1.005-1.025 Urine Protein Negative [...] ff Reviewed date:12/24/2024 05:16:55 PM Interpretation: Performing Lab:[facility], [address] [place] [phone] Notes/Report: White Blood Count 8.2 4.8-10.8 X10*3/uL [...] Panel Reviewed date:12/24/2024 05:16:08 PM Interpretation: Performing Lab:[facility], [address] [place] [phone] Notes/Report: Sodium 137 135-145 mmol/L Potassium 4.2 [...] date:07/23/2024 08:09:01 AM Interpretation:cback psa 07/17 Performing Lab:[facility], [address] [place] [phone] Notes/Report: Prostate Specific Ag Total 6.2 < [...] 30 93 9 (3)Catalona et al.:MICHI 277: 0124-6866 (1996) (4)Catalona et al.:MICHI 279: 8913-7504 (1997) (x)These estimates vary with age, ethnicity, [...] mind. PSA was performed using the Zulema Antelope Immunoassay method. Values obtained from different assay methods cannot be used interchangeably. PSA levels, regardless of value, should not be interpreted as absolute evidence of the presence or absence of disease. THIS TEST WAS PERFORMED AT: [facility] [address] [place] [phone] CLAUS SEALS MD Free Prostate Spec Ag 1.3 CT shoulder RT wo con Reviewed date:12/19/2024 05:35:49 PM Interpretation: Performing Lab: Notes/Report: [place] [address] [address] Scan Report Signed Patient: Joselito Hurd MR#: [id number] : 1950 Acct:[id number] Age/Sex: 74 / M ADM Date: 12/17/24 Loc: HO.CT Attending Dr: Js Marquez PA-C Ordering Physician: Js Marquez PA-C Date of Service: 12/17/24 Procedure(s): CT shoulder RT wo IV con Accession Number(s): [id number] cc: Richard Castro MD; Js Marquez PA-C Report Number: [id number]: Total DLP = 283.00 mGy-cm CLINICAL HISTORY: [...] in OV> 12/19/24913 DD/ 2 TD/TT: 12/19/24912 Track Welder: [place] [address] CT Scan Report Signed Patient: Flavia Hurd Sr MR#: [id number] : 1950 Acct:[id number] Age/Sex: 74 / M ADM Date: 12/17/24 Loc: HO.CT Attending Dr: Justino Marquez PA-C Ordering Physician: Js Marquez PA-C Date of Service: 12/17/24 Procedure(s): CT staci obrien RT wo IV con Accession Number(s): [id number] cc: Richard Castro MD; Js Marquez PA-C [...] in OV> 12/19/24913 DD/ 2 TD/TT: 12/19/24912 Track Welder: MRSA Nasal Screen Reviewed date:01/29/2025 05:00:18 PM Interpretation: Performing Lab:[facility], [address] [place] [phone] Notes/Report: MRSA Nasal PCR NEGATIVE Negative SA Nasal PCR NEGATIVE Negative MRSA Interpretation SEE NOTE MRSA target DNA not detected; SA target DNA not detected. A MRSA NEGATIVE, SA NEGATIVE test result does not preclude MRSA or SA nasal colonization. Complete Blood Count Auto Di ff Reviewed date:02/21/2025 05:04:30 PM Interpretation: Performing Lab:[facility], [address] [place] [phone] Notes/Report: White Blood Count 5.4 4.8-10.8 X10*3/uL [...] Panel Reviewed date:02/21/2025 04:13:13 PM Interpretation: Performing Lab:[facility], [address] [place] [phone] Notes/Report: Sodium 138 135-145 mmol/L Potassium 4.5 [...] Screen Reviewed date:02/21/2025 04:00:33 PM Interpretation: Performing Lab:[facility], [address] [place] [phone] Notes/Report: Spec expiration changed by ARPITA on 02/21/25 Reason: PAT NURSING: Call Blood Bank (ext. [phone]) to band patient on admission. Type and Screen in effect until 2300 on 02/26/25 Witnessed by [facility] Blood Type AP Antibody Screen NEGATIVE Hemoglobin and Hematocrit Reviewed date:02/26/2025 12:28:58 PM Interpretation: Performing Lab:[facility], [address] [place] [phone] Notes/Report: Hemoglobin 13.7 14.0-18.0 g/dl Hematocrit 40.8 42.0-52.0 % Pathology Reviewed date:02/28/2025 05:07:11 PM Interpretation: Performing Lab:[facility], [address] [place] [phone] Notes/Report: ------ Name: Joselito Hurd Sr Age/Sex: 75/M : 1950 Unit#: [id number] Attend Dr: Clint Thomas MD Re02/26/25 Status : [facility] Location: [facility] Disch: ------ SPEC : [id number] RECD : 02/27/25 STATUS: EARNEST WALLER NUM: [id number] KRISTINA: 02/26/25-[address] [facility] [address]: Clint Thomas MD ENTERED: [...] yet, brittle, tapia-yellow with yellow-pink bone marrow. Women'S Studies Lecturer secti ons are submitted in a cassette labeled A1 following decalcification. CEDS IHC S/NG Disclaimer NOTE: Unless otherwi se stated, all tissue is formalin-fixed and paraffin-embedded. Some or all of the immunohistochemical tests reported herein may have been developed and their performance characteristics determined by [facility]. They have not been cleared or appr saima by the U.S. Food and Drug Administration (FDA). However, the FDA has determined that such clearance or approval is not necessary. This laboratory is certified under the Clinical Laboratory Improvement Amendments of 1988 (CLIA) as qualified to perform high comp lexity clinical laboratory testing. Copies To: Richard Castro MD [facility] [address] [place] [id number] CONTINUED ON NEXT PAGE ------ Name: Joselito Hurd Sr Age/Sex: 75/M : 1950 Unit#: [id number] Attend Dr: Clint Thomas MD Re02/26/25 Status : [facility] Location: [facility] Disch: ------ SPEC : [id number] RECD : 02/27/25 STATUS: MARYJazlyn SRIDHAR NUM: [id number] KRISTINA: 02/26/25-[address] [facility] [address]: Clint Thomas MD ENTERED: 02/27/25 53 SP TYPE: Surgical OTHR DR: Richard Castro MD ORDERED: Gross Micro L3, Decal Copies To: (Continued) Clint Thomas MD [facility] [address] [place] [address] [address] [place] [address] ------ Signed (signature on file) Leon Keene MD 02/28/25 1146 ------ END OF REPORT XR shoulder RT 1V Reviewed date:02/26/2025 05:10:31 PM Interpretation: Performing Lab: Notes/Report: [address] [address] XRay Report Signed Patient: Joselito Hurd Sr MR#: [id number] : 1950 Acct:[id number] Age/Sex: 75 / M ADM Date: 02/26/25 Loc: .S3 345-[address]: Clint Thomas MD Ordering Physician: Js Marquez PA-C Date of Service: 02/26/25 Procedure(s): XR shoulder RT 1V Accession Number(s): [id number] cc: Richard Castro MD; Js Marquez PA-C [...] 02/26/25 1702 DD/ 1539 TD/TT: 02/26/25 1642 Track Welder: [address] [address] XRay Report Signed Patient: Flavia Hurd Sr MR#: [id number] : 1950 Acct:[id number] Age/Sex: 75 / M ADM Date: 02/26/25 Loc: .S3 345-[address]: Clint ellison MD Ordering Physician: Js Marquez PA-C Date of Service: 02/26/25 Procedure(s): XR staci ulder RT 1V Accession Number(s): [id number] cc: Richard Castro MD; Js Marquez PA-C [...] 02/26/25 1702 DD/ 1539 TD/TT: 02/26/25 1642 Track Welder: Complete Blood Count Auto Di ff Reviewed date:02/27/2025 04:10:37 PM Interpretation: Performing Lab:[facility], [address] [place] [phone] Notes/Report: White Blood Count 11.9 4.8-10.8 X10*3/uL [...] g Reviewed date:02/27/2025 04:01:26 PM Interpretation: Performing Lab:[facility], [address] [place] [phone] Notes/Report: Sodium 136 135-145 mmol/L Potassium 4.2 [...] Calcium 8.0 8.4-10.2 mg/dL Gram stain Reviewed date:06/20/2025 05:05:21 PM Interpretation: Performing Lab:[facility], [address] [place] [phone] Notes/Report: RIGHT SHOULDER PER R/O C.ACNES RT SHOULDER Gram stain Gram stain results: Gram stain 4+ polys Gram stain 4+ red blood cells Gram stain No organisms seen Routine Culture Reviewed date:06/20/2025 03:38:27 PM Interpretation: Performing Lab:[facility], [address] [place] [phone] Notes/Report: RIGHT SHOULDER PER R/O C.ACNES RT SHOULDER Routine Culture No growth after 2 days Anaerobic Culture Reviewed date:06/20/2025 03:38:01 PM Interpretation: Performing Lab:[facility], [address] [place] [phone] Notes/Report: RIGHT SHOULDER PER R/O C.ACNES RT SHOULDER O:CUTIAC Cutibacterium acnes Anaerobic Culture B-Lac Susc (reported) Anaerobic Culture Beta-lactamase not produced; suggests PEN/AMP susceptibility Anaerobic Culture Quant Org ID Anaerobic Culture 1+ Liver Panel (Not yet reviewe d by provider) Interpretation: Performing Lab:[address] [phone] Notes/Report: Bilirubin Total 0.2 0.0-1.0 mg/dL Bilirubin Direct < 0.2 0.0-0.5 mg/dL Aspartate Amino Transferase 26 5-37 U/L Alanine Aminotransferase 30 0-40 U/L Total Protein 7.4 6.5-8.0 g/dL Albumin Level 4.0 3.5-5.0 g/dL Alkaline Phosphatase 108 39-117 U/L Reason For Referral No Information Medications Medication [...] Problem Status W/U Status Risk Notes Problem 372684780 Neuropathy (G62.9) Active confirmed Problem 25566556 Prostatism (N40.0) Active confirmed Problem 312248567 Paroxysmal atria l fibrillation (I48.0) Active confirmed Problem 467919116 Essential tremor (G25.0) Active confirmed Problem 907390434121719 Erectile dysfunc tion due to arterial insufficiency (N52.01) Active confirmed Problem 45807533 Mitral valve dis order (I05.9) Active confirmed Problem Pure hypercholesterolemia (634685054) Elevated LDL cholesterol level (E78.0) Active confirmed Problem 834127392 Non-rheumatic mi tral regurgitation (I34.0) Active confirmed Problem 831717012 Pure hypercholesterolemia (E78.00) Active confirmed Problem 965869088 Elevated PSA (R97.20) Active confirme d Problem 028925163 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 confirmed Problem 25714894 Hydronephrosis 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) Active confirmed Problem 462618739 Elevated serum cholesterol (E78.9) Active confirmed Problem 243227657 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 Vital Signs Blood pressure diastolic 70 mm Hg 12/24/2024 Height 70.50 in 12/24/2024 Blood pressure systolic 118 mm Hg 12/24/2024 Weight 200 lbs 12/24/2024 BMI 28.29 kg/m2 12/24/2024 Encounters Encounter Location Date Provider Diagnosis Richard Castro MD [address] [place] [id number] 07/03/2024 Richard Castro Elevated PSA R97.20 ; Encounter for immunization Z23 and Pure hypercholesterolemia E78.00 Richard Castro MD [address] [place] [id number] 07/17/2024 Richard Castro Essential tremor G25 .0 ; Pure hypercholesterolemia E78.00 ; Elevated PSA R97.20 ; Paroxysmal atrial fibrillation I48.0 ; Colon cancer screening Z12.11 and Depression screening Z13.31 Richard Castro MD [address] [place] [id number] 12/24/2024 Richard Castro Mass in neck R22.1 ; Right shoulder pain, unspecified chronicity M25.511 and Preop examination Z01.818 Richard Castro MD [address] [place] [id number] 01/15/2025 Richard Castro MD [address] [place] [id number] 02/28/2025 Richard Castro Assessments Encounter Date Diagnosis (ICD Code) Assessment Notes Treatment Notes Treatment Clinical Notes Section Notes 07/03/2024 Elevated PSA (ICD-10 - R97.20) 07/03/2024 Encounter for immunization (ICD-10 - Z23) 07/17/2024 Essential tremor (ICD-10 - G25.0) 07/17/2024 Pure hypercholesterolemia (ICD-10 - E78.00) 12/24/2024 Mass in neck (ICD-10 - R22.1) THE ORDER WAS FAXED TO [facility], pending diagnsotic testing 12/24/2024 Right shoulder [...] shoulder surgery if cleared by his director consumer affairs 07/17/2024 Paroxysmal atrial fibrillation (ICD-10 - I48.0) have warned him of the risk of stroke and he should be on anticoag. he is going to think about it and get back to me or maybe wait/ get last note from [facility] 07/17/2024 Colon cancer screeni ng (ICD-10 - Z12.11) guaiac negative 07/17/2024 Depression screening (ICD-10 - Z13.31) negative screen Plan Of Treatment Pending Test Test Name Order Date US RENAL BILATERAL 07/17/2020 US RENAL BILATERAL 07/24/2020 Liver Panel 06/27/2025 US soft tiss head and/or neck 12/24/2024 Future Test Test Name Order Date US RENAL BILATERAL 07/29/2021 Next Appt Details Provider Name:Richard Chatman ier, 07/05/2025 07:30:00 AM, [address] [place] [address], [address], [place], [place], [phone], Provider Name:Richard Chatman ier, 07/18/2025 01:00:00 PM, [address] [place] [address], [address], [place], [place], [phone], Insurance Providers Payer Name Payer Address Payer Phone Subscriber Number Group Number Insured Name Patient Relationship to Insured Coverage Start Date Coverage End Date [employer] [address] [place] [address] [id number] Joselito Hurd Self - patient is the insured MEDEX BCBS OF [facility] P O [facility] [address] [place] [phone] [id number] Joselito Hurd Self - patient is the [...]
--- OUTSIDE RECORDS SUMMARY | 2025-06-27 16:19 | XMS_ITS | Patient Health Record ---
Author Organization [facility] Address [address] [place] [address] Care Team Providers Care Global Project Manager Name Role Phone Richard Castro MD Primary Care Provider Carin Fall Jr Jaziel Unavailable [phone] Reason For Referral No Information Medications Medication [...] Status W/U Status Risk Notes Problem Hemorrhoids (06941997) Hemorrhoids (455.6) Active confirmed Problem Colon cancer screening (193159325) Colon cancer screening (V76.51) Active confirmed Problem Feces contents abnormal (324033006) Abnormal findings in stool (792.1) Active confirmed Plan Of Treatment Future Test Test Name Order Date COLONOSCOPY 07/26/2014 Insurance Providers Payer Name Payer Address Payer Phone Subscriber Number Group Number Insured Name Patient Relationship to Insured Coverage Start Date Coverage End Date [facility] [address] [address] [place] [address] [id number] ROOSEVELT SAMUELS Self - patient is the insured [place]ICARE OF [place] [address] [place] [address] [phone] [id number] ROOSEVELT SAMUELS Self - patient is the insured Medical (General) History Medical History History ICD Code lymphoma Atrial fibrillation mitral valve prolapse Surgical History Surgery Date(Month/Year) lymphectomy 1 node under arm 2010
--- OUTSIDE RECORDS SUMMARY | 2025-06-27 16:19 | XMS_ITS | Encounter Summary ---
Author Organization [facility] Address [address] [place] [address] Phone Care Team Providers Care Shift Nurse Manager Name Role Phone Richard Castro MD Primary Care Provider Encounter Details Date Type Department Care Team (Late st Contact Info) Description 12/12/2020 Procedure Pass Echo Lab [address] [place] [address] Social History Tobacco Use Types Packs/Day Years [...] Description 09/13/2025 10:00 AM EST Office Visit [facility] [address] [place] [address] [address] Floor, [address] [place] [address] Roxy Burnette DNP [address], [address] [place] [address] documented as of this encounter Visit Diagnoses Not on filedocumented in this encounter Care Teams Shift Nurse Manager Relationship Specialty Start Date End Date Richard Castro MD NPI: [id number] [place] [address] [place] [address] PCP - General 06/02/17 documented as of this encounter Additional Source Comments The information contained in this document represents components of the legal health record. It is not the complete legal health record.[facility]
== END 2025-06-27 14:12 | disposition home or self-care (01) ==
LOC: HO.HOS 13:00
PROVIDERS: PCP Internal Medicine; Visit Provider Physician Assistant
DX: Z96.611 Presence of right artificial shoulder joint (principal); M00.9 Pyogenic arthritis, unspecified
CPT/HCPCS: 99024

== ENCOUNTER 2025-07-04 11:23 | Outpatient (AMB) | payer MEDICARE, SELFPAY ==
--- OUTSIDE RECORDS SUMMARY | 2024-01-23 08:15 | XMS_ITS ---
Author Organization Richard Castro MD Address [address] [place] [id number] Care Team Providers Care Chief Inspector Name Role Phone Richard Castro Primary Care Provider Allergies No Known Allergies REASON FOR VISIT COUGHING ONE WEEK, WHEEZING and fatigue, CELL PHONE [phone], WILL TEST FOR COVID THIS MORN, tested [...] Location Date Provider Diagnosis Richard Castro MD [address] [place] [address] [place] [phone] 01/23/2024 Richard Castro Bronchitis J40 Assessments Encounter [...] 07:30:00 AM, [address], [address], [place], [place], [phone], Provider Name:Richard Chatman ier, 07/18/2025 01:00:00 PM, 10 [facility], [address], [place], [place], [phone], Progress Notes * Joselito HURD ADOB:[birth year] (73 yo M)Acc No.[id number]:01/23/2024 Patient: Joselito Garcia Provider: Del Castro MD :1950 A ge:73 Y S ex:Male Date:01/23/2024 Address:[address] [place], [place] [phone] Subjective: * Chief Complaints: * C OUGHING ONE WEEK, WHEEZING and fatigueCELL PHONE [phone] TEST FOR COVID THIS MORNtested for Covid [...] 01/23/2024 Generated for Per deleon/Amandeep/Maninder on: 1 09/03/2024 05:36 PM EST History and Physical Notes * HPI (History of Present Illness) Category Sub-Category Detail Notes Category Not es Symptom(s) Telehealth Location of [facility] rendering services:: [address], [address] [...]
--- OUTSIDE RECORDS SUMMARY | 2024-07-03 03:30 | XMS_ITS ---
Author Organization Richard Castro MD Address [address] [place], [place] [phone] Care Team Providers Care Auto Winder Name Role Phone Richard Castro Primary Care Provider Results Component Value Reference Range Notes Complete Blood Count Auto Di ff Reviewed date:07/03/2024 08:00:30 PM Interpretation: Performing Lab:[facility], [address] [place] [phone] Notes/Report: White Blood Count 7.5 4.8-10.8 X10*3/uL [...] NRBC Abs Auto 0.000 0.0-0.012 X10*3/uL Comprehensive [place]. Panel Fa st Reviewed date:07/03/2024 08:16:51 PM Interpretation: Performing Lab:[facility], [address] [place] [phone] Notes/Report: Sodium 138 135-145 mmol/L Potassium 4.1 [...] 08:01:49 PM Interpretation: Performing Lab:[facility], [address] [place] [phone] Notes/Report: Triglycerides 98 <150 mg/dL Desirable Triglyceride: [...] Interpretation:see back 07-17-2024 Performing Lab:[facility], [address] [place] [phone] Notes/Report: PSA,Total (Free>4and<10) 5.94 0.00-4.00 ng/mL PSA methodology: Burgess Alinity i Chemiluminescent Microparticle Immunoassay (CMIA) UA ClnCatch+Micro w/rflx Cul t Reviewed date:07/03/2024 08:03:57 PM Interpretation: Performing Lab:[facility], [address] [place] [phone] Notes/Report: Urine, Clean Catch Color Urine Yellow Appearance Urine Clear PH 5.5 5.0-9.0 Glucose Urine UA Negative Negative mg/dL Urine Blood Negative Negative Specific [place] - Urine 1.015 1.005-1.025 Urine Protein Negative [...] Date Provider Diagnosis Richard Castro MD [address] [place], [place] [phone] 07/03/2024 Richard Castro Elevated PSA R97.20 ; Encounter for immunization Z23 and Pure hypercholesterolemia E78.00 Assessments Encounter Date Diagnosis (ICD Code) Assessment Notes Treatment Notes Treatment Clinical Notes Section Notes 07/03/2024 Elevated PSA (ICD-10 - R97.20) 07/03/2024 Encounter for immunization (ICD-10 - Z23) 07/03/2024 Pure hypercholesterolemia (ICD-10 - E78.00) Plan Of Treatment Next Appt Details Provider Name:Richard Chatman ier, 07/05/2025 07:30:00 AM, [address] [place] [address], [address], [phone], Provider Name:Richard Garcia Grettaaneudy ier, 07/18/2025 01:00:00 PM, [address] [place] [address], [place] [address], [place], [place], [phone], Progress Notes * Joselito HURD ADOB:[birth year] (75 yo M)Acc No.[id number]:07/03/2024 Progress Note Patient: Joselito HANNA Provider: Del Castro MD :1950 A ge:74 Y S ex:Male Date:07/03/2024 Address:[address] [place] [address] Subjective: * Chief Complaints: * 1 . [...] - 07/03/2024 08:30 AM) L AB: Comprehensive [place]. Panel Fast (Collection Date & Time - [...] FLU VAC NO FEE SCHED SAME DAY, [address] VENIPUNCT, ROUTINE* * * The named appointment provid er may or may not be the originator of this progress note, and it is not deemed complete until electronically signed by the appointment provider. Sign off status: Pending * Provider: Del Castro MD Date: 09/02/2023 Generated for Per deleon/Amandeep/Maninder on: 09/03/2024 05:37 PM EST
--- OUTSIDE RECORDS SUMMARY | 2024-07-17 08:30 | XMS_ITS ---
Author Organization Richard Castro MD Address [address] [place] [phone] Care Team Providers Care Senior Project Coordinator Name Role Phone Richard Castro Primary Care [...] Location Date Provider Diagnosis Richard Castro MD [address] [place] [address] [address] [place], [place] [phone] 07/17/2024 Richard Castro Essential tremor G25 .0 [...] or maybe wait/ get last note from [facility] 07/17/2024 Colon cancer screeni ng (ICD-10 [...] or maybe wait/ get last note from [facility] Colon cancer screening guaiac negative Depression screening negative screen Next Appt Details Follow Up: 1 Year, Reason: Provider Name:Richard escamilla, 07/05/2025 07:30:00 AM, [address] [place] [address], [address] [place] [address], [phone], Provider Name:Richard escamilla, 07/18/2025 01:00:00 PM, [address] [place] [address], [place] [address], [place], [place], [phone], Progress Notes * Joselito HURD ADOB:[birth year] (74 yo M)Acc No.[id number]:07/17/2024 Patient: Joselito Garcia Provider: Del Castro MD :1950 A ge:74 Y S ex:Male Date:07/17/2024 Address[place] [address] Subjective: * Chief Complaints: * R eview [...] 01-23-24. * P ast Orders: L ab:Comprehensive [place]. Panel Fast (Order Date - 07/03/2024) (Collection [...] mg/dL Urine Blood Negative Negative - Specific [place] - Urine 1.015 1.005-1.025 - Urine Protein [...] or maybe wait/ get last note from [facility] 3. C olon cancer screening L AB: Occult Blood, Stool, Guaiac N egative Value Reference Range O ccult Blood, Stool, Guaiac Neg Notes: guaiac negative??4.?Depression screening? Notes: negative screen?? * Procedure Codes: 8 2270 TEST FOR BLOOD, FECES * Follow Up: 1 Year * * Sign off status: Completed true * Provider: Del Castro MD Date: 09/17/2023 Generated for Per deleon/Amandeep/Maninder on: 09/03/2024 05:37 PM EST History and Physical Notes * [...]
--- OUTSIDE RECORDS SUMMARY | 2024-12-24 06:00 | XMS_ITS ---
Author Organization Richard Castro MD Address [address] [place], [place] [phone] Care Team Providers Care Sew Out Operator Name Role Phone Richard Castro Primary Care Provider Allergies No Known Allergies Results Component Value Reference Range Notes Complete Blood Count Auto Di ff Reviewed date:12/24/2024 05:16:55 PM Interpretation: Performing Lab:[facility], [address] [place] [phone] Notes/Report: White Blood Count 8.2 4.8-10.8 X10*3/uL [...] Panel Reviewed date:12/24/2024 05:16:08 PM Interpretation: Performing Lab:[facility], [address] [place] [phone] Notes/Report: Sodium 137 135-145 mmol/L Potassium 4.2 [...] 02-12-25 needs CBC BMP EKG going to Lawn Mower Sharpener 01-01-25 to be cleared, Patientfound a mass [...] Location Date Provider Diagnosis Richard Castro MD [address] [place] [address] [address] [place], [place] [phone] 12/24/2024 Richard Castro Mass in neck R22.1 ; Right shoulder pain, unspecified chronicity M25.511 and Preop examination Z01.818 Assessments Encounter Date Diagnosis (ICD Code) Assessment Notes Treatment Notes Treatment Clinical Notes Section Notes 12/24/2024 Mass in neck (ICD-10 - R22.1) THE ORDER WAS FAXED TO [facility] [place], pending diagnsotic testing 12/24/2024 Right shoulder pain, unspecified chronicity (ICD-10 - M25.511) 12/24/2024 Preop examination (ICD-10 - Z01.818) at this point i don't find anything medically to prevent his shoulder surgery if cleared by his endoscopy registered nurse Plan Of Treatment Treatment Notes Assessment Notes Mass in neck THE ORDER WAS FAXED TO [facility], pending diagnsotic testing Preop examination at this point i don' t find anything medically to prevent his shoulder surgery if cleared by his endoscopy registered nurse Pending Test Test Name Order Date US soft tiss head and/or neck 12/24/2024 Next Appt Details Follow Up: after us, Reason: Provider Name:Richard escamilla, 07/05/2025 07:30:00 AM, [address] [place] [address], [address], [place], [phone], Provider Name:Richard saldivarr, 07/18/2025 01:00:00 PM, [address] [place] [address], [address], [place], [place], [phone], Progress Notes * Joselito HURD ADOB:[birth year] (74 yo M)Acc No.[id number]:12/24/2024 Patient: Joselito HANNA Provider: Del Castro MD :1950 A ge:74 Y S ex:Male Date:12/24/2024 Address:[address] [place] [address] Subjective: * Chief Complaints: * r shoulder DR Thomas 02-12-25 needs CBC BMP EKG going to Lawn Mower Sharpener 01-01-25 to be clearedPatient found a mass [...] his right side. went to Urgent on [address] H ave you had two or [...] his shoulder surgery if cleared by his endoscopy registered nurse * Procedure Codes: 3 6415 VENIPUNCT, ROUTINE* * Follow Up: a fter us * * Sign off status: Completed true * Provider: Dle Castro MD Date: 0 12/24/2024 Generated for Per deleon/Amandeep/eTransmitting on: 1 09/03/2024 05:37 PM EST History and Physical [...] his right side. went to Urgent on [address]. Have you had two or more [...]
--- OUTSIDE RECORDS SUMMARY | 2025-01-15 04:25 | XMS_ITS ---
Author Organization Richard Castro MD Address [address] [place] [phone] Care Team Providers Care Vocational Trainer Name Role Phone Richard Castro Primary Care Provider REASON FOR VISIT FYI US neck cancelled Encounters Encounter Location Date Provider Diagnosis Richard Castro MD 10 [facility] [address] [place] [phone] 01/15/2025 Richard Castro Plan Of Treatment Next Appt Details Provider Name:Richard Chatman ier, 07/05/2025 07:30:00 AM, [address] [place] [address], [address] [place] [address], [phone], Provider Name:Richard Chatman iemelia, 07/18/2025 01:00:00 PM, [address] [place] [address], [address] [place] [address], [phone], Progress Notes * Joselito HURD ADOB:[birth year] (74 yo M)Acc No.[id number]:01/15/2025 Patient: Jose MESSERREEJoselito :1950 A ge:74 Y S ex:Male Address:[address] [place] [address] * true * Date: Generated for Per deleon/Amandeep/Kendricksmitting on: 09/03/2024 05:37 PM EST
--- OUTSIDE RECORDS SUMMARY | 2025-02-28 08:57 | XMS_ITS ---
Author Organization Richard Castro MD Address [address] [place] [address] [phone] Care Team Providers Care Program Support Clerk Name Role Phone Richard Castro Primary Care Provider REASON FOR VISIT discharge Encounters Encounter Location Date Provider Diagnosis Richard Castro MD 10 [facility] [address] [place] [address] [phone] 02/28/2025 Richard Castro Plan Of Treatment Next Appt Details Provider Name:Richard escamilla, 07/05/2025 07:30:00 AM, [address] [place] [address], [address], [phone], Provider Name:Richard escamilla, 07/18/2025 01:00:00 PM, [address] [place] [address], [address], [phone], Progress Notes * Joselito HURD ADOB:[birth year] (75 yo M)Acc No.[id number]:02/28/2025 Patient: Joselito HANNA :1950 A ge:75 Y S ex:Male Address:[address] [place] [address] * true * Date: Generated for Per deleon/Amandeep/Kendricksmitting on: 09/03/2024 05:36 PM EST
--- NOTE | 2025-07-04 11:26 | MHC.OFFVIS ---
Intake Visit Reasons: PO- RT shoulder I&D 06/19/25 NE Intake Note: Joselito is a 75 year old male who presents today as a PO- RT shoulder I&D 06/19/25 NE. Patient was seen in office on 06/27/25 due to his incision site infection, patient had drainage. At today's visit he states incision stopped bleeding Tuesday, stating he did not notice any blood on Tuesday or today. He has concerns of chunky discharge that was coming out, stating he squeezed a lot out. Allergies No Known Allergies (No Known Allergies*) Allergy (Verified 07/04/25 11:33) Medication List - Last Reconciled 07/04/25 by Js Marquez PA-C diltiazem HCl CD (Cartia XT) 120 mg PO DAILY flecainide 150 mg PO BID linezolid 600 mg PO BID 7 days propranolol ER 80 mg PO NEEDED PRN rivaroxaban (Xarelto) 20 mg PO QPM tamsulosin 0.4 mg PO BEDTIME HPI HPI PO- RT shoulder I&D 06/19/25 NE: Details: 75-year-old gentleman presents to the office today status post right shoulder arthroplasty on 02/26/2025. Postop recovery was complicated by superficial infection. He underwent an I and D of the right shoulder on 06/19/[address] Thomas. Cultures were obtained from an aspiration in the office performed on 06/13/2025 which grew out Cutibacterium acnes. Patient has been taking linezolid 600 mg b.i.d.. He states the drainage from the shoulder has subsided and he denies recent fever or chills. 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) Acute UTI Sepsis Calculus, renal Hydronephrosis Surgical History S/P right rotator cuff repair Hx of colonoscopy Hx of repair of right rotator cuff (~2014) History of left inguinal hernia repair (~2020) History of right inguinal hernia repair (08/28/18) History of bilateral inguinal hernia repair (06/28/17) History of arthroscopy of left knee Family History Father Throat cancer Mother Melanoma Leukemia Social History Household Members: Spouse and Children Housing: House Are you a primary clinical manager home care to a significant other at home: No Do you presently have visiting nurse or other home services: No 75 years or older and lives alone: No Comment: hematoma right thigh, resolved no fracture with 12/2024 fall, no head strike Patient Tobacco Use Status: Former Tobacco user Tobacco use type: Cigarette service: Yes Current occupational status: retired Review of Systems Const All systems reviewed & are unremarkable except as noted in HPI and below Physical Exam Extrem Other: Right shoulder incision is clean and intact. Localized erythema around the incision. Assessment & Plan Assessment & Plan (1) Infection of shoulder: Code(s): M00.9 - Pyogenic arthritis, unspecified Category: Medical (2) Status post reverse total arthroplasty of right shoulder: Code(s): Z96.611 - Presence of right artificial shoulder joint Category: Surgical Plan Dr. Thomas was available to see the patient with me today. Sutures were removed and Steri-Strips applied. He will continue with the antibiotic as prescribed. I did recommend a probiotic to help with his GI distress. He will see me back in 2-3 weeks for a follow up, sooner if needed. Coding Level of Care Code Global (76277) Diagnoses Infection of shoulder M00.9 Status post reverse total arthroplasty of right shoulder Z96.611
--- OUTSIDE RECORDS SUMMARY | 2025-07-04 17:37 | XMS_ITS | Clinical Summary ---
Author Organization [facility] Address [address] [address] Phone Care Team Providers Care Landfill Grader Name Role Phone Richard Castro MD Primary [...] and now has another point to his [id number] score now making him by 2 which [...] Type Department Care Team Description 06/18/2025 Telephone [facility] [address] Floor, [address] [place] [address] Jeniffer Joseph DNP 05/17/2025 1:20 PM EDT Office Visit [facility] [address] Floor, [address] [place] [address] Dianelys Fonseca MD Paroxysmal atrial fibrillation (Primary Dx); Current use of residential anticoagulation 05/13/2025 4:00 PM EDT Office Visit [facility] [address] Floor, [address] [place] [address] Kyle Montanez MD Other chest pain (Primary [...] Description 09/13/2025 10:00 AM EST Office Visit [facility] [address] [place] [address] 3rd Floor, [address] [place] [address] Roxy Burnette DNP 22 [facility], [address] [address] Health Maintenance Due Date Last Done Comments [...] this topic Medical Devices Implanted Type Area Wood Casket Assembler Device Identifier Shelf Expiration Date Model / Serial / Lot Mesh Mesh Pin Pin Right: Arm Procedures Procedure Name Priority Date/Time Associated Diagnosis Comments BASIC METABOLIC PANEL (BMP) Routine 09/10/2022 11:13 AM EST Persistent atrial fibrillation from Last 3 Months or Most Recently Relevant to Health Maintenance Results * (ABNORMAL) Basic metabolic panel (09/10/2022 11:13 AM EST) SODIUM 138 133 - 146 mmol/L [facility] CHLORIDE 102 96 - 108 mmol/L [facility] POTASSIUM 4.8 3.3 - 5.1 mmol/L [facility] CO2 27 21 - 35 mmol/L [facility] BUN 21(H) 6 - 19 mg/dL [facility] CREATININE 1.10 0.5 - 1.5 mg/dL [facility] GLUCOSE 93 70 - 99 mg/dL [facility] CALCIUM 9.2 8.4 - 10.3 mg/dL [facility] EGFR 71 >59 mL/min/1.7 3m2 [facility] Comment:Estimated glomerular filtration rate calculated using the CKD-EPI refit equation. ANION GAP 14 10 - 20 mmol/L [facility] Blood 09/10/2022 11:1 3 AM EST 09/10/2022 4:07 PM EST us Edenilson Stapleton MD LAB BLOOD BKR ORDERABLES Fin al Result [address] [address] from Last 3 Months or Most Recently Relevant to Health Maintenance Insurance [employer] MEDEX SUPPLEMENT MEDICARE PART A & B [employer] MED[employer] SUPPLEMENT MEDICARE PART A & B [employer] MED[employer] SUPPLEMENT MEDICARE PART A & B [employer] MEDEX SUPPLEMENT MEDICARE PART A & B [employer] MEDEX SUPPLEMENT MEDICARE PART A & B [employer] MEDEX SUPPLEMENT MEDICARE PART A & [place] [address] [place] [address] MEDEX SUPPLEMENT MEDICARE PART A & B [employer] MEDEX SUPPLEMENT MEDICARE PART A & B [place] [employer] MEDEX SUPPLEMENT MEDICARE PART A & B Care Teams Landfill Grader Relationship Specialty Start Date End Date Richard Castro MD [address] [place] [address] [place] [address] PCP - General 06/02/17 Additional Source Comments The information contained in this document represents components of the legal health record. It is not the complete legal health record.[facility]
--- OUTSIDE RECORDS SUMMARY | 2025-07-04 17:37 | XMS_ITS | Encounter Summary ---
Author Organization [facility] Address 399 [facility] [address] [place] [address] Phone Care Team Providers Care Photoflash Powder Mixer Name Role Phone Richard Castro MD Primary Care Provider Encounter Details Date Type Department Care Team (Latest Contact Info) Description 11/15/2017 Ancillary Orders [facility] [address] 3rd Floor, [address] [place] [address] Av Orozco MD [address] [place] [address] Paroxysmal atrial fibrillation Social History Tobacco Use [...] Description 09/13/2025 10:00 AM EST Office Visit [facility] [address] 3rd Floor, [address] [place] [address] Roxy Burnette DNP [address] [place] [address], [address] [address] documented as of this encounter Results * TTE COMPREHENSIVE (11/17/2017 10:06 AM EDT) Anatomical Region Laterality Modality Heart Ultrasound us Av Orozco MD CV ECHO ORDERABLES Final Result documented in this encounter Visit Diagnoses Diagnosis Paroxysmal atrial fibrillation Atrial fibrillation documented in this encounter Care Teams Photoflash Powder Mixer Relationship Specialty Start Date End Date Richard Castro MD [address] [place] [address] Dr CHASE [address] [place] [address] PCP - General 06/02/17 documented as of this encounter Additional Source Comments The information contained in this document represents components of the legal health record. It is not the complete legal health record.[facility]
--- OUTSIDE RECORDS SUMMARY | 2025-07-04 17:37 | XMS_ITS | Encounter Summary ---
Author Organization [facility] Address 399 [facility] [address] [place] [address] Phone Care Team Providers Care Associate Counsel Name Role Phone Richard Castor MD Primary Care Provider Encounter Details Date Type Department Care Team (Late Contact Info) Description 08/26/2022 Procedure Pass [facility] [address] [place] [address] Social History Tobacco Use Types Packs/Day Years [...] Description 09/13/2025 10:00 AM EST Office Visit [facility] [address] [place] [address] 3rd Floor, [address] [place] [phone] Roxy Bunrette DNP 22 [facility], [address] [address] documented as of this encounter Visit Diagnoses Not on filedocumented in this encounter Care Teams Associate Counsel Relationship Specialty Start Date End Date Richard Castro MD [address] [place] [address] [place] [address] PCP - General 06/02/17 documented as of this encounter Additional Source Comments The information contained in this document represents components of the legal health record. It is not the complete legal health record.[facility]
--- OUTSIDE RECORDS SUMMARY | 2025-07-04 17:37 | XMS_ITS | Encounter Summary ---
Author Organization [facility] Address 399 [facility] [address] [place] [address] Phone Care Team Providers Care Tail Worker Name Role Phone Richard Castro MD Primary Care Provider Encounter Details Date Type Department Care Team (Latest Contact Info) Description 06/04/2017 Ancillary Orders [facility] [address] 3rd Floor, [address] [place] [address] Av Orozco MD [address] [place] [address] Diagnosis unknown Social History Tobacco Use Types [...] Description 09/13/2025 10:00 AM EST Office Visit [facility] [address] 3rd Floor, [address] [place] [address] Roxy Burnette DNP [address] [place] [address], [address] [address] documented as of this encounter Visit Diagnoses Diagnosis Diagnosis unknown documented in this encounter Care Teams Tail Worker Relationship Specialty Start Date End Date Richard Castro MD [address] [place] [address] [place] [address] PCP - General 06/02/17 documented as of this encounter Additional Source Comments The information contained in this document represents components of the legal health record. It is not the complete legal health record.[facility]
--- OUTSIDE RECORDS SUMMARY | 2025-07-04 17:38 | XMS_ITS | Encounter Summary ---
Author Organization [facility] Address 399 [facility] [address] [place] [address] Phone Care Team Providers Care Brush Operator Name Role Phone Richard Castro MD Primary Care Provider Encounter Details Date Type Department Care Team (Late st Contact Info) Description 12/12/2020 Procedure Pass [facility] [address] [place] [address] Social History Tobacco Use Types Packs/Day Years [...] Description 09/13/2025 10:00 AM EST Office Visit [facility] [address] [place] [address] 3rd Floor, [address] [place] [address] Roxy Burnette DNP 22 [facility], [address] [place] [address] documented as of this encounter Visit Diagnoses Not on filedocumented in this encounter Care Teams Brush Operator Relationship Specialty Start Date End Date Richard Castro MD NPI: [id number] [place] [address] [place] [address] PCP - General 06/02/17 documented as of this encounter Additional Source Comments The information contained in this document represents components of the legal health record. It is not the complete legal health record.[facility]
--- OUTSIDE RECORDS SUMMARY | 2025-07-04 17:38 | XMS_ITS | Patient Health Record ---
Author Organization Richard Castro MD Address [address] [place] [phone] Care Team Providers Care Freight Representative Name Role Phone Richard Castro Primary Care Provider [phone] Allergies No Known Allergies Results Component Value Reference Range Notes Occult Blood, Stool, Guaiac Reviewed date:07/17/2024 02:27:21 PM Interpretation:Negative Performing Lab: Notes/Report: Negative Occult Blood, Stool, Guaiac Neg Complete Blood Count Auto Di ff Reviewed date:12/24/2024 05:16:55 PM Interpretation: Performing Lab:[facility], [address] [place] [phone] Notes/Report: White Blood Count 8.2 4.8-10.8 X10*3/uL [...] Reviewed date:12/24/2024 05:16:08 PM Interpretation: Performing Lab:[facility], [address] [place] [address] Notes/Report: Sodium 137 135-145 mmol/L Potassium 4.2 [...] 3.5-5.0 g/dL Alkaline Phosphatase 83 39-117 U/L CT shoulder RT wo con Reviewed date:12/19/2024 05:35:49 PM Interpretation: Performing Lab: Notes/Report: [address] [address] [address] Scan Report Signed Patient: Joselito Hurd Sr MR#: [id number] : 1950 Acct:[id number] Age/Sex: 74 / M ADM Date: 12/17/24 Loc: HO.CT Attending Dr: Js Marquez PA-C Ordering Physician: Js Marquez PA-C Date of Service: 12/17/24 Procedure(s): CT shoulder RT wo IV con Accession Number(s): [id number] cc: Richard Castro MD; Js Marquez PA-C Report Number: [id number]: Total DLP = 283.00 mGy-cm CLINICAL HISTORY: [...] in OV> 12/19/249[address] DD/ 2 TD/TT: 12/19/24912 Casting Trucker: [place] [address] CT Scan Report Signed Patient: Flavia Hurd Sr MR#: [id number] : 1950 Acct:[id number] Age/Sex: 74 / M ADM Date: 12/17/24 Loc: HO.CT Attending Dr: Justino Marquez PA-C Ordering Physician: Js Marquez PA-C Date of Service: 12/17/24 Procedure(s): CT staci obrien RT wo IV con Accession Number(s): [id number] cc: Richard Castro MD; Js Marquez PA-C Report Number: [id number]: Total DLP = 283.00 mGy-cm CLINICAL HISTORY: M1 2.819 - Other specific arthropathies, not elsewhere classified, unspec... --- Additional Notes or Special Instructions: PRe op planning Exam: [facility] shoulder without intravenous contrast. Comparison: MRI March 13, 2024. Findings: Suture anchors are a gain seen within the humeral head. Humeral head is high -riding nearly contacting the undersurface of the acromion. [...] in OV> 12/19/24913 DD/ 2 TD/TT: 12/19/24912 Casting Trucker: MRSA Nasal Screen Reviewed date:01/29/2025 05:00:18 PM Interpretation: Performing Lab:[facility], [address] [place] [phone] Notes/Report: MRSA Nasal PCR NEGATIVE Negative SA Nasal PCR NEGATIVE Negative MRSA Interpretation SEE NOTE MRSA target DNA not detected; SA target DNA not detected. A MRSA NEGATIVE, SA NEGATIVE test result does not preclude MRSA or SA nasal colonization. Complete Blood Count Auto Di ff Reviewed date:02/21/2025 05:04:30 PM Interpretation: Performing Lab:[facility], [address] [place] [phone] Notes/Report: White Blood Count 5.4 4.8-10.8 X10*3/uL [...] Panel Reviewed date:02/21/2025 04:13:13 PM Interpretation: Performing Lab:[facility], [address] [place] [phone] Notes/Report: Sodium 138 135-145 mmol/L Potassium 4.5 [...] Screen Reviewed date:02/21/2025 04:00:33 PM Interpretation: Performing Lab:[facility], [address] [place] [phone] Notes/Report: Spec expiration changed by ARPITA on 02/21/25 Reason: PAT NURSING: Call Blood Bank (ext. [phone]) to band patient on admission. Type and Screen in effect until 2300 on 02/26/25 Witnessed by PORTERS Blood Type AP Antibody Screen NEGATIVE Hemoglobin and Hematocrit Reviewed date:02/26/2025 12:28:58 PM Interpretation: Performing Lab:[facility], [address] [place] [address] Notes/Report: Hemoglobin 13.7 14.0-18.0 g/dl Hematocrit 40.8 42.0-52.0 % Pathology Reviewed date:02/28/2025 05:07:11 PM Interpretation: Performing Lab:[facility], [address] [place] [address] Notes/Report: ------- Name: Joselito Hurd Age/Sex: 75/M : 1950 Unit#: [id number] Attend Dr: Clint Thomas MD Re02/26/25 Status : [facility] Location: [place] Disch: ------- SPEC : [id number] RECD : 02/27/2549 STATUS: EARNEST WALLER NUM: [id number] KRISTINA: 02/26/25-[address] [facility] [address]: Clint Thomas MD ENTERED: 02/27/25- 53 SP TYPE: Surgical OTHR DR: Richard [...] yet, brittle, tapia-yellow with yellow-pink bone marrow. Line Operator secti ons are submitted in a cassette labeled A1 following decalcification. CEDS IHC S/NG Disclaimer NOTE: Unless otherwi se stated, all tissue is formalin-fixed and paraffin-embedded. Some or all of the immunohistochemical tests reported herein may have been developed and their performance characte ristics determined by [facility]. They have not been cleared or appr saima by the U.S. Food and Drug Administration (FDA). However, the FDA has determined that such clearance or approval is not necessary. This laboratory is certified under the Clinical Laboratory Improvement Amendments of 1988 (CLIA) as qualified to perform high comp lexity clinical laboratory testing. Copies To: Richard Castro MD [facility] [address] [place] [address] [address] [place] [address] CONTINUED ON NEXT PAGE ------- Name: VannessaJoselito Houser Age/Sex: 75/M : 1950 Unit#: [id number] Attend Dr: Clint Thomas MD Re02/26/25 Status : [facility] Location: [place] Disch: ------- SPEC : [id number] RECD : 02/27/25 STATUS: EARNEST WALLER NUM: [id number] KRISTINA: 02/26/25-[address]: Clint Thomas MD ENTERED: 02/27/25- 53 SP TYPE: Surgical OTHR DR: Richard Castro MD ORDERED: Gross Micro L3, Decal Copies To: (Continued) Clint Thomas MD [facility] [address] [place] [address] Dr [address] [place] [address] ------- Signed (si gnature on file) Leon Keene MD 02/28/25 1146 ------- END OF REPORT XR shoulder RT 1V Reviewed date:02/26/2025 05:10:31 PM Interpretation: Performing Lab: Notes/Report: [address] [address] XRay Report Signed Patient: Joselito Hurd Sr MR#: [id number] : 1950 Acct:[id number] Age/Sex: 75 / M ADM Date: 02/26/25 Loc: .S3 345-[address]: Clint Thomas MD Ordering Physician: Js Marquez PA-C Date of Service: 02/26/25 Procedure(s): XR shoulder RT 1V Accession Number(s): [id number] cc: Richard Castro MD; Js Marquez PA-C [...] 02/26/25 1702 DD/ 1539 TD/TT: 02/26/25 1642 Casting Trucker: [address] [address] XRay Report Signed Patient: Flavia Hurd Sr MR#: [id number] : 1950 Acct:[id number] Age/Sex: 75 / M ADM Date: 02/26/25 Loc: .S3 345-[address]: Clint ellison MD Ordering Physician: Js Marquez PA-C Date of Service: 02/26/25 Procedure(s): XR staci ulder RT 1V Accession Number(s): [id number] cc: Richard Castro MD; Js Marquez PA-C [...] By: Cornell Alaniz MD Signed By: <Caty mojica signed by Cornell Alaniz MD in OV> 02/26/25 1702 DD/ 1539 TD/TT: 02/26/25 1642 Casting Trucker: Complete Blood Count Auto Di ff Reviewed date:02/27/2025 04:10:37 PM Interpretation: Performing Lab:[facility], [address] [place] [phone] Notes/Report: White Blood Count 11.9 4.8-10.8 X10*3/uL [...] g Reviewed date:02/27/2025 04:01:26 PM Interpretation: Performing Lab:[facility], [address] [place] [address] Notes/Report: Sodium 136 135-145 mmol/L Potassium 4.2 [...] stain Reviewed date:06/20/2025 05:05:21 PM Interpretation: Performing Lab:[facility], [address] [place] [phone] Notes/Report: RIGHT SHOULDER PER R/O C.ACNES RT SHOULDER Gram stain Gram stain results: Gram stain 4+ polys Gram stain 4+ red blood cells Gram stain No organisms seen Routine Culture Reviewed date:06/20/2025 03:38:27 PM Interpretation: Performing Lab:[facility], [address] [place] [phone] Notes/Report: RIGHT SHOULDER PER R/O C.ACNES RT SHOULDER Routine Culture No growth after 2 days Anaerobic Culture Reviewed date:06/20/2025 03:38:01 PM Interpretation: Performing Lab:[facility], [address] [place] [address] Notes/Report: RIGHT SHOULDER PER R/O C.ACNES RT SHOULDER O:CUTIAC Cutibacterium acnes Anaerobic Culture B-Lac Susc (reported) Anaerobic Culture Beta-lactamase not produced; suggests PEN/AMP susceptibility Anaerobic Culture Quant Org ID Anaerobic Culture 1+ Liver Panel Reviewed date:06/27/2025 04:46:56 PM Interpretation: Performing Lab:[facility], [address] [place] [address] Notes/Report: Bilirubin Total 0.2 0.0-1.0 mg/dL Bilirubin [...] Problem Status W/U Status Risk Notes Problem 983961846 Neuropathy (G62.9) Active confirmed Problem 08002189 Prostatism (N40.0) Active confirmed Problem 047215953 Paroxysmal atria l fibrillation (I48.0) Active confirmed Problem 842768654 Essential tremor (G25.0) Active confirmed Problem 769472767339979 Erectile dysfunc tion due to arterial insufficiency (N52.01) Active confirmed Problem 76585114 Mitral valve dis order (I05.9) Active confirmed Problem Pure hypercholesterolemia (299485317) Elevated LDL cholesterol level (E78.0) Active confirmed Problem 355949166 Non-rheumatic mi tral regurgitation (I34.0) Active confirmed Problem 710614978 Pure hypercholesterolemia (E78.00) Active confirmed Problem 153995685 Elevated PSA (R97.20) Active confirme d Problem 832392622 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 confirmed Problem 40157222 Hydronephrosis 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) Active confirmed Problem 533598832 Elevated serum cholesterol (E78.9) Active confirmed Problem 022845459 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 Vital Signs Blood pressure diastolic 70 mm Hg 12/24/2024 Height 70.50 in 12/24/2024 Blood pressure systolic 118 mm Hg 12/24/2024 Weight 200 lbs 12/24/2024 BMI 28.29 kg/m2 12/24/2024 Encounters Encounter Location Date Provider Diagnosis Richard Castro MD [address] [place] [address] [address] [place] [id number] 07/17/2024 Richard Castro Essential tremor G25 .0 ; Pure hypercholesterolemia E78.00 ; Elevated PSA R97.20 ; Paroxysmal atrial fibrillation I48.0 ; Colon cancer screening Z12.11 and Depression screening Z13.31 Richard Castro MD [address] [place] [address] [id number] 12/24/2024 Richard Castro Mass in neck R22.1 ; Right shoulder pain, unspecified chronicity M25.511 and Preop examination Z01.818 Richard Castro MD [address] [place] [address] Drive [address] [place] [id number] 01/15/2025 Richard Castro MD [address] [place] [address] Drive [address] [place] [id number] 02/28/2025 Richard Castro Assessments Encounter Date Diagnosis (ICD Code) Assessment Notes Treatment Notes Treatment Clinical Notes Section Notes 07/17/2024 Essential tremor (ICD-10 - G25.0) 07/17/2024 Pure hypercholesterolemia (ICD-10 - E78.00) 12/24/2024 Mass in neck (ICD-10 - R22.1) THE ORDER WAS FAXED TO [facility], pending diagnsotic testing 12/24/2024 Right shoulder pain, unspecified chronicity (ICD-10 - M25.511) 07/17/2024 Elevated PSA (ICD-10 - R97.20) had been over 6 4 y ears ago followed by urology. need notes from last visit/ notes will be requested 12/24/2024 Preop examination (ICD-10 - Z01.818) at this point i don't find anything medically to prevent his shoulder surgery if cleared by his wool hat hydraulicker 07/17/2024 Paroxysmal atrial fibrillation (ICD-10 - I48.0) have warned him of the risk of stroke and he should be on anticoag. he is going to think about it and get back to me or maybe wait/ get last note from [facility] 07/17/2024 Colon cancer screeni ng (ICD-10 - Z12.11) guaiac negative 07/17/2024 Depression screening (ICD-10 - Z13.31) negative screen Plan Of Treatment Pending Test Test Name Order Date US RENAL BILATERAL 07/17/2020 US RENAL BILATERAL 07/24/2020 US soft tiss head and/or neck 12/24/2024 Future Test Test Name Order Date US RENAL BILATERAL 07/29/2021 Next Appt Details Provider Name:Richard Chatman ier, 07/05/2025 07:30:00 AM, [address] [place] [address], [address] [place] [address], [phone], Provider Name:Richard Chatman ier, 07/18/2025 01:00:00 PM, [address] [place] [address], [address], [place], [phone], Insurance Providers Payer Name Payer Address Payer Phone Subscriber Number Group Number Insured Name Patient Relationship to Insured Coverage Start Date Coverage End Date MEDICARE NHIC [address] [place] [address] [id number] Joselito Hurd Self - patient is the insured MEDEX BCBS OF [employer] [address] [place] [address] [id number] Joselito Hurd Self - patient is the [...]
--- OUTSIDE RECORDS SUMMARY | 2025-07-04 17:38 | XMS_ITS | Patient Health Record ---
Author Organization [facility] Address [address] [place] [address] Care Team Providers Care Cloth Weigher Name Role Phone Richard Castro MD Primary Care Provider Jaziel Mclean Jr Reason For Referral No Information Medications Medication SIG (Take, Route, Frequency, Duration) Notes Start Date End Date Status dilTIAZem HCl 120 MG Tablet 1 tablet before meals Orally QD 07/26/2014 Active Flecainide Acetate 50 MG Tablet 1 tablet Orally every 12 hrs Active Aspir-81 Active Suprep Bowel Prep 1 Solution as directed Orally 1; Duration: 1 dose 07/26/2014 Active Social History Social History Additional Details Category Social Info Options Details Miscellaneous: Marital status: 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 Problems Problem Type SNOMED Code ICD Code Onset Dates Problem Status W/U Status Risk Notes Problem Hemorrhoids (38404768) Hemorrhoids (455.6) Active confirmed Problem Colon cancer screening (005458371) Colon cancer screening (V76.51) Active confirmed Problem Feces contents abnormal (858029023) Abnormal findings in stool (792.1) Active confirmed Plan Of Treatment Future Test Test Name Order Date COLONOSCOPY 07/26/2014 Insurance Providers Payer Name Payer Address Payer Phone Subscriber Number Group Number Insured Name Patient Relationship to Insured Coverage Start Date Coverage End Date [facility] [address] [address] [place] [address] [phone] [id number] ROOSEVELT SAMUELS Self - patient is the insured MED[place]ARE OF [place] [address] [facility] [place] [id number] [phone] [id number] ROOSEVELT SAMUELS Self - patient is the insured Medical (General) History Medical History History ICD Code lymphoma Atrial fibrillation mitral valve prolapse Surgical History Surgery Date(Month/Year) lymphectomy 1 node under arm 2010
== END 2025-07-04 12:35 | disposition home or self-care (01) ==
LOC: HO.HOS 11:24
PROVIDERS: PCP Internal Medicine; Visit Provider Physician Assistant
DX: M00.9 Pyogenic arthritis, unspecified (principal); Z96.611 Presence of right artificial shoulder joint
CPT/HCPCS: 99024

== ENCOUNTER → 2025-07-04 11:23 | Outpatient (BNVA) | payer MEDICARE, SELFPAY | PROVIDERS: PCP Internal Medicine; Visit Provider Physician Assistant | DX: L08.9 Local infection of the skin and subcutaneous tissue, unspecified (principal); M00.111 Pneumococcal arthritis, right shoulder; Z48.1 Encounter for planned postprocedural wound closure; Z96.611 Presence of right artificial shoulder joint; Z79.01 Long term (current) use of anticoagulants; Z87.891 Personal history of nicotine dependence | CPT/HCPCS: 99212 ==

== ENCOUNTER 2025-07-05 09:41 | Outpatient (AMB) | payer MEDICARE, SELFPAY ==
--- OUTSIDE RECORDS SUMMARY | 2024-01-23 08:15 | XMS_ITS ---
Author Organization Richard Castro MD Address [address] [place] [phone] Care Team Providers Care Stagecraft Professor Name Role Phone Richard Castro Primary Care Provider Allergies No Known Allergies REASON FOR VISIT COUGHING ONE WEEK, WHEEZING and fatigue, CELL PHONE [phone], WILL TEST FOR COVID THIS MORN, tested [...] Location Date Provider Diagnosis Richard Castro MD [address] [place] [address] [place] [phone] 01/23/2024 Richard Castro Bronchitis J40 Assessments Encounter [...] Next Appt Details Provider Name:Richard Chatman ier, 07/18/2025 01:00:00 PM, [address] [facility] [address], [address], [place], [place], [phone], Progress Notes * Joselito HURD ADOB:[birth year] (73 yo M)Acc No.[id number]:01/23/2024 Patient: Joselito Garcia Provider: Del Castro MD :1950 A ge:73 Y S ex:Male Date:01/23/2024 Address:[address] [place], [place] [phone] Subjective: * Chief Complaints: * C OUGHING ONE WEEK, WHEEZING and fatigueCELL PHONE [phone] TEST FOR COVID THIS MORNtested for Covid this AM negative * HPI: S ymptom(s): Telehealth L ocation of provider rendering services: [address], [address], L ocation of patient: a t address listed in demographics for today's visit, P atient identification confirmed using: TIFFANIE Fitzgerald ame, SSN, Insurance information, T elehealth method: V [...] HEAD: normocephalic. Assessment: * Assessment: 1. B ronchitis - J40 (Primary) Plan: * Treatment: * Procedure Codes: * * Sign off status: Completed true * Provider: Del Castro MD Date: 0 01/23/2024 Generated for Per deleon/Amandeep/Maninder on: 1 09/04/2024 10:17 AM EST History and Physical Notes * HPI (History of Present Illness) Category Sub-Category Detail Notes Category Not es Symptom(s) Telehealth Location of [facility] rendering services:: [address], [address] [...]
--- OUTSIDE RECORDS SUMMARY | 2024-07-03 03:30 | XMS_ITS ---
Author Organization Richard Castro MD Address [address] [place], [place] [phone] Care Team Providers Care Temple Marker Name Role Phone Richard Castro Primary Care Provider [phone] Results Component Value Reference Range Notes Complete Blood Count Auto Di ff Reviewed date:07/03/2024 08:00:30 PM Interpretation: Performing Lab:[facility], [address] [place] [phone] Notes/Report: White Blood Count 7.5 4.8-10.8 X10*3/uL [...] NRBC Abs Auto 0.000 0.0-0.012 X10*3/uL Comprehensive [place]. Panel Fa st Reviewed date:07/03/2024 08:16:51 PM Interpretation: Performing Lab:[facility], [address] [place] [phone] Notes/Report: Sodium 138 135-145 mmol/L Potassium 4.1 [...] Panel Reviewed date:07/03/2024 08:01:49 PM Interpretation: Performing Lab:[facility], [address] [place] [phone] Notes/Report: Triglycerides 98 <150 mg/dL Desirable Triglyceride: [...] date:07/17/2024 04:52:07 PM Interpretation:see back 07-17-2024 Performing Lab:[facility], [address] [place] [phone] Notes/Report: PSA,Total (Free>4and<10) 5.94 0.00-4.00 ng/mL PSA methodology: Burgess Alinity i Chemiluminescent Microparticle Immunoassay (CMIA) UA ClnCatch+Micro w/rflx Cul t Reviewed date:07/03/2024 08:03:57 PM Interpretation: Performing Lab:[facility], [address] [place] [phone] Notes/Report: Urine, Clean Catch Color Urine Yellow Appearance Urine Clear PH 5.5 5.0-9.0 Glucose Urine UA Negative Negative mg/dL Urine Blood Negative Negative Specific [place] - Urine 1.015 1.005-1.025 Urine Protein Negative [...] Date Provider Diagnosis Richard Castro MD [address] [place], [place] [phone] 07/03/2024 Richard Castro Elevated PSA R97.20 ; Encounter for immunization Z23 and Pure hypercholesterolemia E78.00 Assessments Encounter Date Diagnosis (ICD Code) Assessment Notes Treatment Notes Treatment Clinical Notes Section Notes 07/03/2024 Elevated PSA (ICD-10 - R97.20) 07/03/2024 Encounter for immunization (ICD-10 - Z23) 07/03/2024 Pure hypercholesterolemia (ICD-10 - E78.00) Plan Of Treatment Next Appt Details Provider Name:Richard Glynnaneudy ier, 07/18/2025 01:00:00 PM, [address] [place] [address], [address], [place], [place], [phone], Progress Notes * Joselito HURD ADOB:[birth year] (75 yo M)Acc No.[id number]:07/03/2024 Progress Note Patient: Joselito HANNA Provider: Del Castro MD :1950 A ge:74 Y S ex:Male Date:07/03/2024 Address:[address] [place] [address] Subjective: * Chief Complaints: * 1 . [...] - 07/03/2024 08:30 AM) L AB: Comprehensive [place]. Panel Fast (Collection Date & Time - [...] FLU VAC NO FEE SCHED SAME DAY, [address] VENIPUNCT, ROUTINE* * * The named appointment provid er may or may not be the originator of this progress note, and it is not deemed complete until electronically signed by the appointment provider. Sign off status: Pending * Provider: Del Castro MD Date: 09/02/2023 Generated for Per deleon/Amandeep/Maninder on: 09/04/2024 10:18 AM EST
--- OUTSIDE RECORDS SUMMARY | 2024-07-17 08:30 | XMS_ITS ---
Author Organization Richard Castro MD Address [address] [place] [phone] Care Team Providers Care Roller Shop Supervisor Name Role Phone Richard Castro Primary [...] Location Date Provider Diagnosis Richard Castro MD [address] [place] [address] [address] [place], [place] [phone] 07/17/2024 Richard Castro Essential tremor G25 .0 [...] or maybe wait/ get last note from [facility] 07/17/2024 Colon cancer screeni ng (ICD-10 [...] or maybe wait/ get last note from [facility] Colon cancer screening guaiac negative Depression screening negative screen Next Appt Details Follow Up: 1 Year, Reason: Provider Name:Richard escamilla, 07/18/2025 01:00:00 PM, [address] [place] [address], [place] [address], [place], [place], [phone], Progress Notes * Joselito HURD ADOB:[birth year] (74 yo M)Acc No.[id number]:07/17/2024 Patient: Joselito Garcia Provider: Del Castro MD :1950 A ge:74 Y S ex:Male Date:07/17/2024 Address:[address] [place], [place] [phone] Subjective: * Chief Complaints: * R eview [...] 01-23-24. * P ast Orders: L ab:Comprehensive [place]. Panel Fast (Order Date - 07/03/2024) (Collection [...] mg/dL Urine Blood Negative Negative - Specific [place] - Urine 1.015 1.005-1.025 - Urine Protein [...] or maybe wait/ get last note from [facility] 3. C olon cancer screening L AB: Occult Blood, Stool, Guaiac N egative Value Reference Range O ccult Blood, Stool, Guaiac Neg Notes: guaiac negative??4.?Depression screening? Notes: negative screen?? * Procedure Codes: 8 2270 TEST FOR BLOOD, FECES * Follow Up: 1 Year * * Sign off status: Completed true * Provider: Del Castro MD Date: 09/17/2023 Generated for Per deleon/Amandeep/eTransmitting on: 09/04/2024 10:17 AM EST History and Physical [...]
--- OUTSIDE RECORDS SUMMARY | 2024-12-24 06:00 | XMS_ITS ---
Author Organization Richard Castro MD Address [address] [place], [place] [phone] Care Team Providers Care Slot Key Person Name Role Phone Richard Castro Primary Care Provider [phone] Allergies No Known Allergies Results Component Value Reference Range Notes Complete Blood Count Auto Di ff Reviewed date:12/24/2024 05:16:55 PM Interpretation: Performing Lab:[facility], [address] [place] [phone] Notes/Report: White Blood Count 8.2 4.8-10.8 X10*3/uL [...] Panel Reviewed date:12/24/2024 05:16:08 PM Interpretation: Performing Lab:[facility], [address] [place] [phone] Notes/Report: Sodium 137 135-145 mmol/L Potassium 4.2 [...] 02-12-25 needs CBC BMP EKG going to Veneer Department Manager 01-01-25 to be cleared, Patientfound a mass [...] Location Date Provider Diagnosis Richard Castro MD [address] [place] [address] [address] [place], [place] [phone] 12/24/2024 Richard Castro Mass in neck R22.1 ; Right shoulder pain, unspecified chronicity M25.511 and Preop examination Z01.818 Assessments Encounter Date Diagnosis (ICD Code) Assessment Notes Treatment Notes Treatment Clinical Notes Section Notes 12/24/2024 Mass in neck (ICD-10 - R22.1) THE ORDER WAS FA[place] [facility], pending diagnsotic testing 12/24/2024 Right shoulder pain, unspecified chronicity (ICD-10 - M25.511) 12/24/2024 Preop examination (ICD-10 - Z01.818) at this point i don't find anything medically to prevent his shoulder surgery if cleared by his facility supervisor Plan Of Treatment Treatment Notes Assessment Notes Mass in neck THE ORDER WAS FAXED TO [facility], pending diagnsotic testing Preop examination at this point i don' t find anything medically to prevent his shoulder surgery if cleared by his facility supervisor Pending Test Test Name Order Date US soft tiss head and/or neck 12/24/2024 Next Appt Details Follow Up: after us, Reason: Provider Name:Richard Chatman ier, 07/18/2025 01:00:00 PM, [address] [facility], [address], [place], [place], [phone], Progress Notes * Joselito HURD ADOB:[birth year] (74 yo M)Acc No.[id number]:12/24/2024 Patient: Joselito HANNA Provider: Del Castro MD :1950 A ge:74 Y S ex:Male Date:12/24/2024 Address:[address] [place] [address] Subjective: * Chief Complaints: * r shoulder DR Thomas 02-12-25 needs CBC BMP EKG going to Veneer Department Manager 01-01-25 to be clearedPatient found a mass [...] his right side. went to Urgent on [address] H ave you had two or [...] his shoulder surgery if cleared by his facility supervisor * Procedure Codes: 3 6415 VENIPUNCT, ROUTINE* * Follow Up: a fter us * * Sign off status: Completed true * Provider: Del Castro MD Date: 0 12/24/2024 Generated for Per deleon/Amandeep/Kendricksmitting on: 09/04/2024 10:18 AM EST History and Physical Notes * [...] his right side. went to Urgent on [address]. Have you had two or more [...]
--- OUTSIDE RECORDS SUMMARY | 2025-01-15 04:25 | XMS_ITS ---
Author Organization Richard Castro MD Address [address] [place] [phone] Care Team Providers Care Gyroscopic Instrument Mechanic Name Role Phone Richard Castro Primary Care Provider [phone] REASON FOR VISIT FYI US neck cancelled Encounters Encounter Location Date Provider Diagnosis Richard Castro MD [address] [place] [phone] 01/15/2025 Richard Castro Plan Of Treatment Next Appt Details Provider Name:Richard Chatman ier, 07/18/2025 01:00:00 PM, [address] [facility] [address], Suite [facility], [place], [place], [phone], Progress Notes * Joselito HURD ADOB:[birth year] (74 yo M)Acc No.[id number]:01/15/2025 Patient: Joselito HANNA :1950 A ge:74 Y S ex:Male Address:[address] [place], [place] [phone] * true * Date: Generated for Per deleon/Amandeep/Malindaitting on: 09/04/2024 10:17 AM EST
--- OUTSIDE RECORDS SUMMARY | 2025-02-28 08:57 | XMS_ITS ---
Author Organization Richard Castro MD Address [address] [place] [address] [phone] Care Team Providers Care Software Support Specialist Name Role Phone Richard Castro Primary Care Provider REASON FOR VISIT discharge Encounters Encounter Location Date Provider Diagnosis Richard Castro MD 10 [facility] [address] [place], [place] [phone] 02/28/2025 Richard Castro Plan Of Treatment Next Appt Details Provider Name:Richard Chatman ier, 07/18/2025 01:00:00 PM, 10 [facility], Suite [facility], [place], [place], [phone], Progress Notes * Joselito HURD ADOB:[birth year] (75 yo M)Acc No.[id number]:02/28/2025 Patient: Joselito HANNA :1950 A ge:75 Y S ex:Male Address:[address] [place] [address] * true * Date: Generated for Per deleon/Amandeep/Maninder on: 09/04/2024 10:17 AM EST
--- OUTSIDE RECORDS SUMMARY | 2025-07-05 02:30 | XMS_ITS ---
Author Organization Richard Castro MD Address [address] [place] [phone] Care Team Providers Care Analyst Name Role Phone Richard Castro Primary Care Provider REASON FOR VISIT yearly fasting labs Immunizations Vaccine Route Administration Date Status Comme nts Fluarix Quadrivalent - 150 IM Intramuscular 07/05/2025 Adm inistered Encounters Encounter Location Date Provider Diagnosis Richard Castro MD [address] [place] [phone] 07/05/2025 Richard Castro Elevated PSA R97.20 ; Pure hypercholesterolemia E78.00 and Encounter for administration of vaccine Z23 Assessments Encounter Date Diagnosis (ICD Code) Assessment Notes Treatment Notes Treatment Clinical Notes Section Notes 07/05/2025 Elevated PSA (ICD-10 - R97.20) 07/05/2025 Pure hypercholesterolemia (ICD-10 - E78.00) 07/05/2025 Encounter for administration of vaccine (ICD-10 - Z23) Plan Of Treatment Pending Test Test Name Order Date Complete Blood Count Auto Diff 5 Comprehensive [place]. Panel Fast Lipid Panel 07/05/2025 PSA,Total (Free>4and<10) 07/05/2025 UA ClnCatch+Micro w/rflx Cult 07/05/2025 Next Appt Details Provider Name:Richard Chatman ier, 07/18/2025 01:00:00 PM, [address] [place] [address], [address], [place], [place], [phone], Progress Notes * Joselito HURD ADOB:[birth year] (75 yo M)Acc No.[id number]:07/05/2025 Progress Note Patient: Joselito HANNA Provider: Del Castro MD :1950 A ge:75 Y S ex:Male Date:07/05/2025 Address:[address] [place] [address] Subjective: * Chief Complaints: * 1 . Yearly fasting labs. * Medical History: Objective: * Vitals: Assessment: * Assessment: 1. E levated PSA - R97.20 (Primary) 2 . P ure hypercholesterolemia - E78.00? 3. E ncounter for administration of vaccine - Z23 Plan: * Treatment: 2. P ure hypercholesterolemia L AB: Complete Blood Count Auto Diff L AB: Comprehensive [place]. Panel Fast L AB: Lipid Panel L AB: PSA,Total (Free>4and<10) L AB: UA ClnCatch+Micro w/rflx Cult * Immunizations: Fluarix Quadrivalent - 150 : 0.5 mL (Dose No:1) (Route: Intramuscular) given by Evelyn Blackwood , Office Staff on Left Deltoid * Procedure Codes: 3 6415 VENIPUNCT, ROUTINE*, [address]270 FLU VACCINE NO PRESERV 3 & >, G0008 ADMN FLU VAC NO FEE SCHED SAME DAY * * The named appointment provid er may or may not be the originator of this progress note, and it is not deemed complete until electronically signed by the appointment provider. Sign off status: Pending * Provider: Del Castro MD Date: 09/04/2024 Generated for Per deleon/Amandeep/Maninder on: 09/04/2024 10:18 AM EST
--- NOTE | 2025-07-05 09:49 | MHC.OFFVIS ---
Intake Visit Reasons: PO - Right TSA I&D 06/19/25 - wet to dry dressings Intake Note: Joselito is a 75 year old male who presents today for a post operative bandage change s/p right shoulder I&D, performed by Dr. Thomas on 06/19/25. Allergies No Known Allergies (No Known Allergies*) Allergy (Verified 07/05/25 09:57) Medication List - Last Reconciled 07/05/25 by Js Marquez PA-C diltiazem HCl CD (Cartia XT) 120 mg PO DAILY flecainide 150 mg PO BID linezolid 600 mg PO BID 7 days propranolol ER 80 mg PO NEEDED PRN rivaroxaban (Xarelto) 20 mg PO QPM tamsulosin 0.4 mg PO BEDTIME HPI HPI PO - Right TSA I&D 06/19/25 - wet to dry dressings: Details: 75-year-old gentleman presents to the office today status post right shoulder arthroplasty on 02/26/2025. Postop recovery was complicated by superficial infection. He underwent an I and D of the right shoulder on 06/19/[address] Thomas. Cultures were obtained from an aspiration in the office performed on 06/13/2025 which grew out Cutibacterium acnes. Patient has been taking linezolid 600 mg b.i.d.. While in the office yesterday the sutures were removed and incision was draining so Dr. Thomas packed it with iodoform packing and then a dressing with gauze. Patient states he had to do a dressing change at home as the bandage was becoming saturated and some of the packing came out and he cut the excess. [facility] Medical History Wears hearing aid in both ears [place] (hard of hearing) History of cardioversion BPH (benign prostatic hyperplasia) Hx MRSA infection (07/2018) Tremor Non-Hodgkin lymphoma Afib Hydronephrosis with renal and ureteral calculous obstruction (2019) Acute UTI Sepsis Calculus, renal Hydronephrosis Surgical History S/P right rotator cuff repair Hx of colonoscopy Hx of repair of right rotator cuff (~2014) History of left inguinal hernia repair (~2020) History of right inguinal hernia repair (08/28/18) History of bilateral inguinal hernia repair (06/28/17) History of arthroscopy of left knee Family History Father Throat cancer Mother Melanoma Leukemia Social History Household Members: Spouse and Children Housing: House Are you a primary primary care pediatrician to a significant other at home: No Do you presently have visiting nurse or other home services: No Comment: hematoma right thigh, resolved no fracture with 12/2024 fall, no head strike Patient Tobacco Use Status: Former Tobacco user Tobacco use type: Cigarette service: Yes Current occupational status: retired Review of Systems Const All systems reviewed & are unremarkable except as noted in HPI and below Physical Exam Extrem Other: Right shoulder healing well with a pea-sized opening along the most proximal aspect. Erythema around the incision has improved. Assessment & Plan Assessment & Plan (1) Status post reverse total arthroplasty of right shoulder: Code(s): Z96.611 - Presence of right artificial shoulder joint Category: Surgical (2) Infection of shoulder: Code(s): M00.9 - Pyogenic arthritis, unspecified Category: Medical Plan Remainder of the packing was removed. I applied new packing in the incision site and put on a wet-to-dry dressing with tape. The patient will remove the packing tomorrow after 24 hours and then perform wet-to-dry dressings daily. I explained at length the process of how to perform wet-to-dry dressing. The patient will see me back on Tuesday for another wound check. Coding Level of Care Code Global (62253) Diagnoses Status post reverse total arthroplasty of right shoulder Z96.611 Infection of shoulder M00.9
--- OUTSIDE RECORDS SUMMARY | 2025-07-05 10:21 | XMS_ITS | Clinical Summary ---
Author Organization [facility] Address [address] [address] Phone Care Team Providers Care Loop Tacker Name Role Phone Richard Castro MD Primary [...] and now has another point to his [id number] score now making him by 2 which [...] Type Department Care Team Description 06/18/[address] [facility] [address], [address] [place] [address] Jeniffer Joseph DNP 05/17/2025 1:20 PM EDT Office Visit [facility] [address], [address] [place] [address] Dianelys Fonseca MD Paroxysmal atrial fibrillation (Primary Dx); Current use of correction anticoagulation 05/13/2025 4:00 PM EDT Office Visit [facility] [address] Floor, [address] [place] [address] Kyle Montanez MD Other chest pain (Primary [...] Description 09/13/2025 10:00 AM EST Office Visit [facility] [address] [place] [address] 3rd Floor, [address] [place] [address] Roxy Burnette DNP 22 [facility], [address] [address] Health Maintenance Due Date Last Done Comments [...] this topic Medical Devices Implanted Type Area Government Professor Device Identifier Shelf Expiration Date Model / Serial / Lot Mesh Mesh Pin Pin Right: Arm Procedures Procedure Name Priority Date/Time Associated Diagnosis Comments BASIC METABOLIC PANEL (BMP) Routine 09/10/2022 11:13 AM EST Persistent atrial fibrillation from Last 3 Months or Most Recently Relevant to Health Maintenance Results * (ABNORMAL) Basic metabolic panel (09/10/2022 11:13 AM EST) SODIUM 138 133 - 146 mmol/L [facility] CHLORIDE 102 96 - 108 mmol/L [facility] POTASSIUM 4.8 3.3 - 5.1 mmol/L [facility] CO2 27 21 - 35 mmol/L [facility] BUN 21(H) 6 - 19 mg/dL [facility] CREATININE 1.10 0.5 - 1.5 mg/dL [facility] GLUCOSE 93 70 - 99 mg/dL [facility] CALCIUM 9.2 8.4 - 10.3 mg/dL [facility] EGFR 71 >59 mL/min/1.7 3m2 [facility] Comment:Estimated glomerular filtration rate calculated using the CKD-EPI refit equation. ANION GAP 14 10 - 20 mmol/L [facility] Blood 09/10/2022 11:1 3 AM EST 09/10/2022 4:07 PM EST us Edenilson Stapleton MD LAB BLOOD BKR ORDERABLES Fin al Result [address] [address] from Last 3 Months or Most Recently Relevant to Health Maintenance Insurance [employer]EX SUPPLEMENT MEDICARE PART A & B [employer] MEDEX SUPPLEMENT MEDICARE PART A & B [employer] MEDEX SUPPLEMENT MEDICARE PART A & B [employer] MEDEX SUPPLEMENT MEDICARE PART A & B [employer] MEDEX SUPPLEMENT MEDICARE PART A & B [employer] MEDEX SUPPLEMENT MEDICARE PART A & [place] [address] [address] MEDEX SUPPLEMENT MEDICARE PART A & B [employer] MEDEX SUPPLEMENT MEDICARE PART A & B [place] [employer] MEDEX SUPPLEMENT MEDICARE PART A & B Care Teams Loop Tacker Relationship Specialty Start Date End Date Richard Castro MD [address] [place] [address] [place] [address] PCP - General 06/02/17 Additional Source Comments The information contained in this document represents components of the legal health record. It is not the complete legal health record.[facility]
--- OUTSIDE RECORDS SUMMARY | 2025-07-05 10:21 | XMS_ITS | Patient Health Record ---
Author Organization Richard Castro MD Address [address] [place] [phone] Care Team Providers Care Terrazzo Layer Name Role Phone Richard Castro Primary Care Provider [phone] Allergies No Known Allergies Results Component Value Reference Range Notes Occult Blood, Stool, Guaiac Reviewed date:07/17/2024 02:27:21 PM Interpretation:Negative Performing Lab: Notes/Report: Negative Occult Blood, Stool, Guaiac Neg Complete Blood Count Auto Di ff Reviewed date:12/24/2024 05:16:55 PM Interpretation: Performing Lab:[facility], [address] [place] [phone] Notes/Report: White Blood Count 8.2 4.8-10.8 X10*3/uL [...] Panel Reviewed date:12/24/2024 05:16:08 PM Interpretation: Performing Lab:[facility], [address] [place] [phone] Notes/Report: Sodium 137 135-145 mmol/L Potassium 4.2 [...] date:12/19/2024 05:35:49 PM Interpretation: Performing Lab: Notes/Report: [address] [address] [address] Scan Report Signed Patient: Joselito Hurd Sr MR#: [id number] : 1950 Acct:[id number] Age/Sex: 74 / M ADM Date: 12/17/24 Loc: HO.CT Attending Dr: Js Marquez PA-C Ordering Physician: Js Marquez PA-C Date of Service: 12/17/24 Procedure(s): CT shoulder RT wo IV con Accession Number(s): [id number] cc: Richard Castro MD; Js Marquez PA-C Report Number: [id number]: Total DLP = 283.00 mGy-cm CLINICAL HISTORY: [...] in OV> 12/19/24913 DD/ 2 TD/TT: 12/19/24912 Manager Country: [place] [address] CT Scan Report Signed Patient: Flavia Hurd Sr MR#: [id number] : 1950 Acct:[id number] Age/Sex: 74 / M ADM Date: 12/17/24 Loc: HO.CT Attending Dr: Justino Marquez PA-C Ordering Physician: Js Marquez PA-C Date of Service: 12/17/24 Procedure(s): CT staci obrien RT wo IV con Accession Number(s): [id number] cc: Richard Castro MD; Js Marquez PA-C Report Number: [id number]: Total DLP = 283.00 mGy-cm CLINICAL HISTORY: M1 2.819 - Other specific arthropathies, not elsewhere classified, unspec... --- Additional Notes or Special Instructions: PRe op planning Exam: [facility] shoulder without intravenous contrast. Comparison: MRI March [...] in OV> 12/19/24913 DD/ 2 TD/TT: 12/19/24912 Manager Country: MRSA Nasal Screen Reviewed date:01/29/2025 05:00:18 PM Interpretation: Performing Lab:[facility], [address] [place] [phone] Notes/Report: MRSA Nasal PCR NEGATIVE Negative SA Nasal PCR NEGATIVE Negative MRSA Interpretation SEE NOTE MRSA target DNA not detected; SA target DNA not detected. A MRSA NEGATIVE, SA NEGATIVE test result does not preclude MRSA or SA nasal colonization. Complete Blood Count Auto Di ff Reviewed date:02/21/2025 05:04:30 PM Interpretation: Performing Lab:[facility], [address] [place] [phone] Notes/Report: White Blood Count 5.4 4.8-10.8 X10*3/uL [...] Panel Reviewed date:02/21/2025 04:13:13 PM Interpretation: Performing Lab:[facility], [address] [place] [phone] Notes/Report: Sodium 138 135-145 mmol/L Potassium 4.5 [...] Screen Reviewed date:02/21/2025 04:00:33 PM Interpretation: Performing Lab:[facility], [address] [place] [phone] Notes/Report: Spec expiration changed by ARPITA on 02/21/25 Reason: PAT NURSING: Call Blood Bank (ext. [phone]) to band patient on admission. Type and Screen in effect until 2300 on 02/26/25 Witnessed by PORTERS Blood Type AP Antibody Screen NEGATIVE Hemoglobin and Hematocrit Reviewed date:02/26/2025 12:28:58 PM Interpretation: Performing Lab:[facility], [address] [place] [address] Notes/Report: Hemoglobin 13.7 14.0-18.0 g/dl Hematocrit 40.8 42.0-52.0 % Pathology Reviewed date:02/28/2025 05:07:11 PM Interpretation: Performing Lab:[facility], [address] [place] [address] Notes/Report: ------- Name: Joselito Hurd Age/Sex: 75/M : 1950 Unit#: [id number] Attend Dr: Clint Thomas MD Re02/26/25 Status : [facility] Location: [facility] Disch: ------- SPEC : [id number] RECD : 02/27/2549 STATUS: EARNEST WALLER NUM: [id number] KRISTINA: 02/26/25-1449 [facility] DR: Clint Thomas MD ENTERED: 02/27/25- [...] yet, brittle, tapia-yellow with yellow-pink bone marrow. Planning Assistant secti ons are submitted in a cassette labeled A1 following decalcification. CEDS IHC S/NG Disclaimer NOTE: Unless otherwi se stated, all tissue is formalin-fixed and paraffin-embedded. Some or all of the immunohistochemical tests reported herein may have been developed and their performance characte ristics determined by [facility]. They have not been cleared or appr saima by the U.S. Food and Drug Administration (FDA). However, the FDA has determined that such clearance or approval is not necessary. This laboratory is certified under the Clinical Laboratory Improvement Amendments of 1988 (CLIA) as qualified to perform high comp lexity clinical laboratory testing. Copies To: Richard Castro MD [facility] [address] [place] [address] [address] [place] [address] CONTINUED ON NEXT PAGE ------- Name: VannessaJoselito Houser Age/Sex: 75/M : 1950 Unit#: [id number] Attend Dr: Clint Thomas MD Re02/26/25 Status : [facility] Location: [facility] Disch: ------- SPEC : [id number] RECD : 02/27/25 STATUS: EARNEST WALLER NUM: [id number] KRISTINA: 02/26/25-[address]: Clint Thomas MD ENTERED: 02/27/25- 53 SP TYPE: Surgical OTHR DR: Richard Castro MD ORDERED: Gross Micro L3, Decal Copies To: (Continued) Clint Thomas MD [facility] [address] [place] [address] Dr [address] [place] [address] ------- Signed (si gnature on file) Leon Keene MD 02/28/25 1146 ------- END OF REPORT XR shoulder RT 1V Reviewed date:02/26/2025 05:10:31 PM Interpretation: Performing Lab: Notes/Report: [address] [address] XRay Report Signed Patient: Joselito Hurd Sr MR#: [id number] : 1950 Acct:[id number] Age/Sex: 75 / M ADM Date: 02/26/25 Loc: .S3 345-[address]: Clint Thomas MD Ordering Physician: Js Marquez PA-C Date of Service: 02/26/25 Procedure(s): XR shoulder RT 1V Accession Number(s): [id number] cc: Richard Castro MD; Js Marquez PA-C [...] 02/26/25 1702 DD/ 1539 TD/TT: 02/26/25 1642 Manager Country: [address] [address] XRay Report Signed Patient: Flavia Hurd Sr MR#: [id number] : 1950 Acct:[id number] Age/Sex: 75 / M ADM Date: 02/26/25 Loc: .S3 345-[address]: Clint ellison MD Ordering Physician: Js Marquez PA-C Date of Service: 02/26/25 Procedure(s): XR staci ulder RT 1V Accession Number(s): [id number] cc: Richard Castro MD; Js Marquez PA-C [...] 02/26/25 1702 DD/ 1539 TD/TT: 02/26/25 1642 Manager Country: Complete Blood Count Auto Di ff Reviewed date:02/27/2025 04:10:37 PM Interpretation: Performing Lab:[facility], [address] [place] [phone] Notes/Report: White Blood Count 11.9 4.8-10.8 X10*3/uL [...] g Reviewed date:02/27/2025 04:01:26 PM Interpretation: Performing Lab:[facility], [address] [place] [phone] Notes/Report: Sodium 136 135-145 mmol/L Potassium 4.2 [...] stain Reviewed date:06/20/2025 05:05:21 PM Interpretation: Performing Lab:[facility], [address] [place] [phone] Notes/Report: RIGHT SHOULDER PER R/O C.ACNES RT SHOULDER Gram stain Gram stain results: Gram stain 4+ polys Gram stain 4+ red blood cells Gram stain No organisms seen Routine Culture Reviewed date:06/20/2025 03:38:27 PM Interpretation: Performing Lab:[facility], [address] [place] [phone] Notes/Report: RIGHT SHOULDER PER R/O C.ACNES RT SHOULDER Routine Culture No growth after 2 days Anaerobic Culture Reviewed date:06/20/2025 03:38:01 PM Interpretation: Performing Lab:[facility], [address] [place] [phone] Notes/Report: RIGHT SHOULDER PER R/O C.ACNES RT SHOULDER O:CUTIAC Cutibacterium acnes Anaerobic Culture B-Lac Susc (reported) Anaerobic Culture Beta-lactamase not produced; suggests PEN/AMP susceptibility Anaerobic Culture Quant Org ID Anaerobic Culture 1+ Liver Panel Reviewed date:06/27/2025 04:46:56 PM Interpretation: Performing Lab:[facility], [address] [place] [phone] Notes/Report: Bilirubin Total 0.2 0.0-1.0 mg/dL Bilirubin [...] High Dose IM Intramuscular 07/03/2024 Administer ed Fluarix Quadrivalent - 150 IM Intramuscular 07/05/2025 Adm inistered Social History Tobacco Use: Social History Observation [...] Problem Status W/U Status Risk Notes Problem 815375372 Neuropathy (G62.9) Active confirmed Problem 44654813 Prostatism (N40.0) Active confirmed Problem 541666223 Paroxysmal atria l fibrillation (I48.0) Active confirmed Problem 950214248 Essential tremor (G25.0) Active confirmed Problem 260466288082602 Erectile dysfunc tion due to arterial insufficiency (N52.01) Active confirmed Problem 54931482 Mitral valve dis order (I05.9) Active confirmed Problem Pure hypercholesterolemia (136450797) Elevated LDL cholesterol level (E78.0) Active confirmed Problem 312300857 Non-rheumatic mi tral regurgitation (I34.0) Active confirmed Problem 531403122 Pure hypercholesterolemia (E78.00) Active confirmed Problem 551492228 Elevated PSA (R97.20) Active confirme d Problem 019211145 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 confirmed Problem 03817803 Hydronephrosis 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) Active confirmed Problem 425387029 Elevated serum cholesterol (E78.9) Active confirmed Problem 073087795 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 Vital Signs Blood pressure diastolic 70 mm Hg 12/24/2024 Height 70.50 in 12/24/2024 Blood pressure systolic 118 mm Hg 12/24/2024 Weight 200 lbs 12/24/2024 BMI 28.29 kg/m2 12/24/2024 Encounters Encounter Location Date Provider Diagnosis Richard Castro MD [address] [place] [id number] 07/05/2025 Richard Castro Elevated PSA R97.20 ; Pure hypercholesterolemia E78.00 and Encounter for administration of vaccine Z23 Richard Castro MD [address] [place] [id number] 07/17/2024 Richard Castro Essential tremor G25 .0 ; Pure hypercholesterolemia E78.00 ; Elevated PSA R97.20 ; Paroxysmal atrial fibrillation I48.0 ; Colon cancer screening Z12.11 and Depression screening Z13.31 Richard Castro MD [address] [place] [id number] 12/24/2024 Richard Castro Mass in neck R22.1 ; Right shoulder pain, unspecified chronicity M25.511 and Preop examination Z01.818 Richard Castro MD [address] [place] [id number] 01/15/2025 Richard Castro MD [address] [place] [address] [address] [place] [id number] 02/28/2025 Richard Castro Assessments Encounter Date Diagnosis (ICD Code) Assessment Notes Treatment Notes Treatment Clinical Notes Section Notes 07/05/2025 Elevated PSA (ICD-10 - R97.20) 07/05/2025 Pure hypercholesterolemia (ICD-10 - E78.00) 07/17/2024 Essential tremor (ICD-10 - G25.0) 07/17/2024 Pure hypercholesterolemia (ICD-10 - E78.00) 12/24/2024 Mass in neck (ICD-10 - R22.1) THE ORDER WAS FAXED TO [facility], pending diagnsotic testing 12/24/2024 Right shoulder pain, unspecified chronicity (ICD-10 - M25.511) 07/05/2025 Encounter for administration of vaccine (ICD-10 - Z23) 07/17/2024 Elevated PSA (ICD-10 - R97.20) had been over 6 4 y ears ago followed by urology. need notes from last visit/ notes will be requested 12/24/2024 Preop examination (ICD-10 - Z01.818) at this point i don't find anything medically to prevent his shoulder surgery if cleared by his strawberry grower 07/17/2024 Paroxysmal atrial fibrillation (ICD-10 - I48.0) have warned him of the risk of stroke and he should be on anticoag. he is going to think about it and get back to me or maybe wait/ get last note from [facility] 07/17/2024 Colon cancer screeni ng (ICD-10 - Z12.11) guaiac negative 07/17/2024 Depression screening (ICD-10 - Z13.31) negative screen Plan Of Treatment Pending Test Test Name Order Date US RENAL BILATERAL 07/17/2020 US RENAL BILATERAL 07/24/2020 Complete Blood Count Auto Diff 5 Comprehensive [place]. Panel Fast 5 Lipid Panel 07/05/2025 PSA,Total (Free>4and<10) 07/05/2025 US soft tiss head and/or neck 12/24/2024 UA ClnCatch+Micro w/rflx Cult 07/05/2025 Future Test Test Name Order Date US RENAL BILATERAL 07/29/2021 Next Appt Details Provider Name:Richard escamilla, 07/18/2025 01:00:00 PM, [address], [address], [place], [place], [phone], Insurance Providers Payer Name Payer Address Payer Phone Subscriber Number Group Number Insured Name Patient Relationship to Insured Coverage Start Date Coverage End Date [employer] [address] [place] [address] [id number] Joselito Hurd Self - patient is the insured MEDEX BCBS OF [facility] [address] [place] [address] [id number] Joselito Hurd Self - patient is the [...]
--- OUTSIDE RECORDS SUMMARY | 2025-07-05 10:21 | XMS_ITS | Encounter Summary ---
Author Organization [facility] Address [address] [facility] [address] [place] [phone] Phone Care Team Providers Care Inventory Manager Name Role Phone Richard Castro MD Primary Care Provider Encounter Details Date Type Department Care Team (Late Contact Info) Description 08/26/2022 Procedure Pass [facility] [address] [place] [address] Social History Tobacco Use Types Packs/Day Years [...] Description 09/13/2025 10:00 AM EST Office Visit [facility] [address] [place] [address] 3rd Floor, [address] [place] [phone] Roxy Burnette DNP [address] [facility], [address] [address] documented as of this encounter Visit Diagnoses Not on filedocumented in this encounter Care Teams Inventory Manager Relationship Specialty Start Date End Date Richard Castro MD [address] [place] [address] [place] [address] PCP - General 06/02/17 documented as of this encounter Additional Source Comments The information contained in this document represents components of the legal health record. It is not the complete legal health record.[facility]
--- OUTSIDE RECORDS SUMMARY | 2025-07-05 10:21 | XMS_ITS | Encounter Summary ---
Author Organization [facility] Address [address] [facility] [address] [place] [address] Phone Care Team Providers Care Hims Manager Name Role Phone Richard Castro MD Primary Care Provider Encounter Details Date Type Department Care Team (Latest Contact Info) Description 11/15/2017 Ancillary Orders [facility] [address] 3rd Floor, [address] [place] [address] Av Orozco MD [address] [place] [phone] Paroxysmal atrial fibrillation Social History Tobacco Use [...] Description 09/13/2025 10:00 AM EST Office Visit [facility] [address] 3rd Floor, [address] [place] [address] Roxy Burnette DNP [address] [place] [address], [address] [address] documented as of this encounter Results * TTE COMPREHENSIVE (11/17/2017 10:06 AM EDT) Anatomical Region Laterality Modality Heart Ultrasound us Av Orozco MD CV ECHO ORDERABLES Final Result documented in this encounter Visit Diagnoses Diagnosis Paroxysmal atrial fibrillation Atrial fibrillation documented in this encounter Care Teams Hims Manager Relationship Specialty Start Date End Date Richard Castro MD [address] [place] [address] Dr CHASE [address] [place] [address] PCP - General 06/02/17 documented as of this encounter Additional Source Comments The information contained in this document represents components of the legal health record. It is not the complete legal health record.[facility]
--- OUTSIDE RECORDS SUMMARY | 2025-07-05 10:21 | XMS_ITS | Encounter Summary ---
Author Organization [facility] Address [address] [facility] [address] [place] [address] Phone Care Team Providers Care Electrical Test Engineer Name Role Phone Richard Castro MD Primary Care Provider Encounter Details Date Type Department Care Team (Latest Contact Info) Description 06/04/2017 Ancillary Orders [facility] [address] 3rd Floor, [address] [place] [address] Av Orozco MD [address] [place] [address] Diagnosis unknown Social History Tobacco Use Types [...] Description 09/13/2025 10:00 AM EST Office Visit [facility] [address] 3rd Floor, [address] [place] [address] Roxy Burnette DNP [address] [place] [address], [address] [address] documented as of this encounter Visit Diagnoses Diagnosis Diagnosis unknown documented in this encounter Care Teams Electrical Test Engineer Relationship Specialty Start Date End Date Richard Castro MD [address] [place] [address] [place] [address] PCP - General 06/02/17 documented as of this encounter Additional Source Comments The information contained in this document represents components of the legal health record. It is not the complete legal health record.[facility]
--- OUTSIDE RECORDS SUMMARY | 2025-07-05 10:22 | XMS_ITS | Encounter Summary ---
Author Organization [facility] Address [address] [facility] [address] [place] [address] Phone Care Team Providers Care Stone Circular Sawyer Name Role Phone Richard Castro MD Primary Care Provider Encounter Details Date Type Department Care Team (Late st Contact Info) Description 12/12/2020 Procedure Pass Echo [facility] [address] [place] [address] Social History Tobacco Use Types Packs/Day Years [...] Description 09/13/2025 10:00 AM EST Office Visit [facility] [address] [place] [address] 3rd Floor, [address] [place] [address] Roxy Burnette DNP [address] [facility], [address] [place] [address] documented as of this encounter Visit Diagnoses Not on filedocumented in this encounter Care Teams Stone Circular Sawyer Relationship Specialty Start Date End Date Richard Castro MD NPI: [id number] [place] [address] [place] [address] PCP - General 06/02/17 documented as of this encounter Additional Source Comments The information contained in this document represents components of the legal health record. It is not the complete legal health record.[facility]
--- OUTSIDE RECORDS SUMMARY | 2025-07-05 10:22 | XMS_ITS | Patient Health Record ---
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 Problems Problem Type SNOMED Code ICD Code Onset Dates Problem Status W/U Status Risk Notes Problem Hemorrhoids (45472581) Hemorrhoids (455.6) Active confirmed Problem Colon cancer screening (343990806) Colon cancer screening (V76.51) Active confirmed Problem Feces contents abnormal (700971338) Abnormal findings in stool (792.1) Active confirmed Plan Of Treatment Future Test Test Name Order Date COLONOSCOPY 07/26/2014 Insurance Providers Payer Name Payer Address Payer Phone Subscriber Number Group Number Insured Name Patient Relationship to Insured Coverage Start Date Coverage End Date [facility] [address] [address] [place] [address] [id number] ROOSEVELT SAMUELS Self - patient is the insured MEDICARE OF [place] [address] [facility] [place] [id number] ROOSEVELT SAMUELS Self - patient is the insured Medical (General) History Medical History History ICD Code lymphoma Atrial fibrillation mitral valve prolapse Surgical History Surgery Date(Month/Year) lymphectomy 1 node under arm 2010
== END 2025-07-05 10:53 | disposition home or self-care (01) ==
LOC: HO.HOS 09:41
PROVIDERS: PCP Internal Medicine; Visit Provider Physician Assistant
DX: Z96.611 Presence of right artificial shoulder joint (principal); M00.9 Pyogenic arthritis, unspecified
CPT/HCPCS: 99024

== ENCOUNTER 2025-07-05 10:12 | Outpatient (REF) | payer MEDICARE, SELFPAY ==
[2025-07-05 10:18] LABS: MANUAL DIFF FLAG NO
[2025-07-05 10:36] LABS: Appearance Urine Clear; Glucose Urine UA Negative (Negative); PH 5.5 (5.0-9.0); Specific Gravity - Urine 1.020 (1.005-1.025); UMIC TRIGGER UACC YES
[2025-07-05 11:00] LABS: Hematocrit 33.0 % (42.0-52.0); Hemoglobin 10.9 g/dl (14.0-18.0); Imm Gran Abs Auto 0.02 X10*3/uL (0.00-0.03); Imm Gran Pct Auto 0.3 % (0.0-0.4); Lymphocytes Absolute Auto 1.9 X10*3/uL (1.2-4.9); Mean Corpuscular HGB Conc 33.0 g/dl (31.0-36.0); Mean Corpuscular Hemoglobin 29.6 pg (27.0-33.0); Mean Corpuscular Volume 89.7 fL (80.0-98.0); NRBC Abs Auto 0.000 X10*3/uL (0.0-0.012); NRBC Pct Auto 0.0 /100WBC (0.0-0.2); Platelet Count 186 X10*3/uL (160-400); Red Blood Count 3.68 X10*6/uL (4.60-5.80); White Blood Count 7.2 X10*3/uL (4.8-10.8)
[2025-07-05 11:22] LABS: Alanine Aminotransferase 29 U/L (0-40); Albumin Level 3.9 g/dL (3.5-5.0); Alkaline Phosphatase 112 U/L (39-117); Anion Gap 9 (12-20); Aspartate Amino Transferase 31 U/L (5-37); Blood Urea Nitrogen 21 mg/dL (9-16); Calcium 9.0 mg/dL (8.4-10.2); Carbon Dioxide 26 mmol/L (22-29); Chloride 108 mmol/L (96-108); Cholesterol 156 mg/dL (<200); Estimated Glomerular Filt Rate > 60; HDL Cholesterol 47 mg/dL (>40); Potassium 4.1 mmol/L (3.3-5.1); Sodium 139 mmol/L (135-145); Total Protein 7.2 g/dL (6.5-8.0); Triglycerides 61 mg/dL (<150)
[2025-07-05 12:02] LABS: PSA,Total (Free>4and<10) 6.52 ng/mL (0.00-4.00)
[2025-07-08 12:29] LABS: Free Prostate Spec Ag 1.4 ng/mL; Percent Free Prostate Spec Ag 22 % (calc) (>25)
== END 2025-07-05 10:13 | disposition home or self-care (01) ==
LOC: HO.LNP 10:12
PROVIDERS: Visit Provider Internal Medicine
DX: Z96.611 Presence of right artificial shoulder joint (principal); M00.9 Pyogenic arthritis, unspecified; Z13.6 Encounter for screening for cardiovascular disorders; Z12.5 Encounter for screening for malignant neoplasm of prostate
CPT/HCPCS: 80053; 80061; 81001; 84153; 84154; 85025; 99212

== ENCOUNTER 2025-07-08 08:37 | Outpatient (AMB) | payer MEDICARE, SELFPAY ==
--- OUTSIDE RECORDS SUMMARY | 2024-01-23 08:15 | XMS_ITS ---
Author Organization Richard Castro MD Address [address] [place] [phone] Care Team Providers Care Band Saw Operator Cake Cutting Name Role Phone Richard Castro Primary Care Provider [phone] Allergies No Known Allergies REASON FOR VISIT COUGHING ONE WEEK, WHEEZING and fatigue, CELL PHONE [phone], WILL TEST FOR COVID THIS MORN, tested [...] Location Date Provider Diagnosis Richard Castro MD [address] [place] [address] [place] [phone] 01/23/2024 Richard Castro Bronchitis J40 Assessments Encounter [...] Name:Richard Chatman ier, 07/18/2025 01:00:00 PM, [address] [facility] [address], [address], [place], [place], [phone], Progress Notes * Joselito HURD ADOB:[birth year] (73 yo M)Acc No.[id number]:01/23/2024 Patient: Joselito Garcia Provider: Del Castro MD :1950 A ge:73 Y S ex:Male Date:01/23/2024 Address:[address] [place], [place] [phone] Subjective: * Chief Complaints: * C OUGHING ONE WEEK, WHEEZING and fatigueCELL PHONE [phone] TEST FOR COVID THIS MORNtested for Covid [...] 0 01/23/2024 Generated for Per deleon/Amandeep/Maninder on: 09/07/2024 08:55 AM EST History and Physical Notes * HPI (History of Present Illness) Category Sub-Category Detail Notes Category Not es Symptom(s) Telehealth Location of [facility] rendering services:: [address], [address] [...]
--- OUTSIDE RECORDS SUMMARY | 2024-07-03 03:30 | XMS_ITS ---
Author Organization Richard Castro MD Address [address] [place], [place] [phone] Care Team Providers Care Assembler Leather Goods Name Role Phone Richard Castro Primary Care Provider Results Component Value Reference Range Notes Complete Blood Count Auto Di ff Reviewed date:07/03/2024 08:00:30 PM Interpretation: Performing Lab:[facility], [address] [place] [phone] Notes/Report: White Blood Count 7.5 4.8-10.8 X10*3/uL [...] NRBC Abs Auto 0.000 0.0-0.012 X10*3/uL Comprehensive [place]. Panel Fa st Reviewed date:07/03/2024 08:16:51 PM Interpretation: Performing Lab:[facility], [address] [place] [phone] Notes/Report: Sodium 138 135-145 mmol/L Potassium 4.1 [...] Panel Reviewed date:07/03/2024 08:01:49 PM Interpretation: Performing Lab:[facility], [address] [place] [phone] Notes/Report: Triglycerides 98 <150 mg/dL Desirable Triglyceride: [...] date:07/17/2024 04:52:07 PM Interpretation:see back 07-17-2024 Performing Lab:[facility], [address] [place] [phone] Notes/Report: PSA,Total (Free>4and<10) 5.94 0.00-4.00 ng/mL PSA methodology: Burgess Alinity i Chemiluminescent Microparticle Immunoassay (CMIA) UA ClnCatch+Micro w/rflx Cul t Reviewed date:07/03/2024 08:03:57 PM Interpretation: Performing Lab:[facility], [address] [place] [phone] Notes/Report: Urine, Clean Catch Color Urine Yellow Appearance Urine Clear PH 5.5 5.0-9.0 Glucose Urine UA Negative Negative mg/dL Urine Blood Negative Negative Specific [place] - Urine 1.015 1.005-1.025 Urine Protein Negative [...] [facility] [address] [place], [place] [phone] 07/03/2024 Richard Castro Elevated PSA R97.20 ; Encounter for immunization Z23 and Pure hypercholesterolemia E78.00 Assessments Encounter Date Diagnosis (ICD Code) Assessment Notes Treatment Notes Treatment Clinical Notes Section Notes 07/03/2024 Elevated PSA (ICD-10 - R97.20) 07/03/2024 Encounter for immunization (ICD-10 - Z23) 07/03/2024 Pure hypercholesterolemia (ICD-10 - E78.00) Plan Of Treatment Next Appt Details Provider Name:Richard Glynnaneudy ier, 07/18/2025 01:00:00 PM, [address] [place] [address], [address], [place], [place], [phone], Progress Notes * Joselito HURD ADOB:[birth year] (75 yo M)Acc No.[id number]:07/03/2024 Progress Note Patient: Joselito HANNA Provider: Del Castro MD :1950 A ge:74 Y S ex:Male Date:07/03/2024 Address:[address] [place] [address] Subjective: * Chief Complaints: * 1 . [...] - 07/03/2024 08:30 AM) L AB: Comprehensive [place]. Panel Fast (Collection Date & Time - [...] FLU VAC NO FEE SCHED SAME DAY, [address] VENIPUNCT, ROUTINE* * * The named appointment provid er may or may not be the originator of this progress note, and it is not deemed complete until electronically signed by the appointment provider. Sign off status: Pending * Provider: Del Castro MD Date: 09/02/2023 Generated for Per deleon/Amandeep/Maninder on: 09/07/2024 08:58 AM EST
--- OUTSIDE RECORDS SUMMARY | 2024-07-17 08:30 | XMS_ITS ---
Author Organization Richard Castro MD Address [address] [place] [phone] Care Team Providers Care Processing Spec Name Role Phone Richard Castro Primary Care [...] Location Date Provider Diagnosis Richard Castro MD [address] [place] [address] [address] [place], [place] [phone] 07/17/2024 Richard Castro Essential tremor G25 .0 [...] or maybe wait/ get last note from [facility] 07/17/2024 Colon cancer screeni ng (ICD-10 [...] or maybe wait/ get last note from [facility] Colon cancer screening guaiac negative Depression screening negative screen Next Appt Details Follow Up: 1 Year, Reason: Provider Name:Richard escamilla, 07/18/2025 01:00:00 PM, [address] [place] [address], [place] [address], [place], [place], [phone], Progress Notes * Joselito HURD ADOB:[birth year] (74 yo M)Acc No.[id number]:07/17/2024 Patient: Joselito Garcia Provider: Del Castro MD :1950 A ge:74 Y S ex:Male Date:07/17/2024 Address:[address] [place], [place] [phone] Subjective: * Chief Complaints: * R eview [...] Pets: none. no Travel outside of the [place]. * Medications: T akingCartia XT 120 [...] 01-23-24. * P ast Orders: L ab:Comprehensive [place]. Panel Fast (Order Date - 07/03/2024) (Collection [...] mg/dL Urine Blood Negative Negative - Specific [place] - Urine 1.015 1.005-1.025 - Urine Protein [...] or maybe wait/ get last note from [facility] 3. C olon cancer screening L AB: Occult Blood, Stool, Guaiac N egative Value Reference Range O ccult Blood, Stool, Guaiac Neg Notes: guaiac negative??4.?Depression screening? Notes: negative screen?? * Procedure Codes: 8 2270 TEST FOR BLOOD, FECES * Follow Up: 1 Year * * Sign off status: Completed true * Provider: Del Castro MD Date: 09/17/2023 Generated for Per deleon/Amandeep/Seanransmitting on: 09/07/2024 08:58 AM EST History and Physical Notes * [...]
--- OUTSIDE RECORDS SUMMARY | 2024-12-24 06:00 | XMS_ITS ---
Author Organization Richard Castro MD Address [address] [place], [place] [phone] Care Team Providers Care Wet Room Supervisor Name Role Phone Richard Castro Primary Care Provider [phone] Allergies No Known Allergies Results Component Value Reference Range Notes Complete Blood Count Auto Di ff Reviewed date:12/24/2024 05:16:55 PM Interpretation: Performing Lab:[facility], [address] [place] [phone] Notes/Report: White Blood Count 8.2 4.8-10.8 X10*3/uL [...] Panel Reviewed date:12/24/2024 05:16:08 PM Interpretation: Performing Lab:[facility], [address] [place] [phone] Notes/Report: Sodium 137 135-145 mmol/L Potassium 4.2 [...] 02-12-25 needs CBC BMP EKG going to Wardrobe Specialty Worker 01-01-25 to be cleared, Patientfound a mass [...] Location Date Provider Diagnosis Richard Castro MD [address] [place] [address] [address] [place], [place] [phone] 12/24/2024 Richard Castro Mass in neck R22.1 ; Right shoulder pain, unspecified chronicity M25.511 and Preop examination Z01.818 Assessments Encounter Date Diagnosis (ICD Code) Assessment Notes Treatment Notes Treatment Clinical Notes Section Notes 12/24/2024 Mass in neck (ICD-10 - R22.1) THE ORDER WAS FAXED TO [facility] [place], pending diagnsotic testing 12/24/2024 Right shoulder pain, unspecified chronicity (ICD-10 - M25.511) 12/24/2024 Preop examination (ICD-10 - Z01.818) at this point i don't find anything medically to prevent his shoulder surgery if cleared by his continuous miner Plan Of Treatment Treatment Notes Assessment Notes Mass in neck THE ORDER WAS FAXED TO [facility], pending diagnsotic testing Preop examination at this point i don' t find anything medically to prevent his shoulder surgery if cleared by his continuous miner Pending Test Test Name Order Date US soft tiss head and/or neck 12/24/2024 Next Appt Details Follow Up: after us, Reason: Provider Name:Richard Chatman ier, 07/18/2025 01:00:00 PM, [address] [facility], [address], [place], [place], [phone], Progress Notes * Joselito HURD ADOB:[birth year] (74 yo M)Acc No.[id number]:12/24/2024 Patient: Joselito HANNA Provider: Del Castro MD :1950 A ge:74 Y S ex:Male Date:12/24/2024 Address:[address] [place] [address] Subjective: * Chief Complaints: * r shoulder DR Thomas 02-12-25 needs CBC BMP EKG going to [facility] Specialty Worker 01-01-25 to be clearedPatient found a mass [...] his right side. went to Urgent on [address] H ave you had two or [...] his shoulder surgery if cleared by his continuous miner * Procedure Codes: 3 6415 VENIPUNCT, ROUTINE* * Follow Up: a fter us * * Sign off status: Completed true * Provider: Del Castro MD Date: 0 12/24/2024 Generated for Per deleon/Amandeep/Kendricksmitting on: 09/07/2024 08:58 AM EST History and [...] his right side. went to Urgent on [address]. Have you had two or more falls in the year?: No Examination Category Sub-Category Detail Notes [...]
--- OUTSIDE RECORDS SUMMARY | 2025-01-15 04:25 | XMS_ITS ---
Author Organization Richard Castro MD Address [address] [place] [phone] Care Team Providers Care Residential Life Director Name Role Phone Richard Castro Primary Care Provider REASON FOR VISIT FYI US neck cancelled Encounters Encounter Location Date Provider Diagnosis Richard Castro MD [address] [place] [phone] 01/15/2025 Richard Castro Plan Of Treatment Next Appt Details Provider Name:Richard Chatman ier, 07/18/2025 01:00:00 PM, [address], Suite [facility], [place], [place], [phone], Progress Notes * Joselito HURD ADOB:[birth year] (74 yo M)Acc No.[id number]:01/15/2025 Patient: Joselito HANNA :1950 A ge:74 Y S ex:Male Address:[address] [place], [place] [phone] * true * Date: Generated for Per deleon/Amandeep/Malindaitting on: 09/07/2024 08:58 AM EST
--- OUTSIDE RECORDS SUMMARY | 2025-02-28 08:57 | XMS_ITS ---
Author Organization Richard Castro MD Address [address] [place] [address] [phone] Care Team Providers Care Slide Forming Machine Tender Name Role Phone Richard Castro Primary Care Provider REASON FOR VISIT discharge Encounters Encounter Location Date Provider Diagnosis Richard Castro MD 10 [facility] [address] [place], [place] [phone] 02/28/2025 Richard Castro Plan Of Treatment Next Appt Details Provider Name:Richard Chatman ier, 07/18/2025 01:00:00 PM, 10 [facility], Suite [facility], [place], [place], [phone], Progress Notes * Joselito HURD ADOB:[birth year] (75 yo M)Acc No.[id number]:02/28/2025 Patient: Joselito HANNA :1950 A ge:75 Y S ex:Male Address:[address] [place] [address] * true * Date: Generated for Per deleon/Amandeep/Maninder on: 09/07/2024 08:55 AM EST
--- OUTSIDE RECORDS SUMMARY | 2025-07-05 02:30 | XMS_ITS ---
Author Organization Richard Castro MD Address [address] [place], [place] [phone] Care Team Providers Care Private Inquiry Agent Name Role Phone Richard Castro Primary Care Provider Results Component Value Reference Range Notes Complete Blood Count Auto Di ff Reviewed date:07/05/2025 12:57:53 PM Interpretation: Performing Lab:[facility], [address] [place] [phone] Notes/Report: White Blood Count 7.2 4.8-10.8 X10*3/uL Red Blood Count 3.68 4.60-5.80 X10*6/uL Hemoglobin 10.9 14.0-18.0 g/dl Hematocrit 33.0 42.0-52.0 % Mean Corpuscular Volume 89.7 80.0-98.0 fL Mean Corpuscular Hemoglobin 29.6 27.0-33.0 pg Mean Corpuscular HGB Conc 33.0 31.0-36.0 g/dl Red Cell Distribution Width 15.5 11.0-16.0 % Platelet Count 186 160-400 X10*3/uL Mean Platelet Volume 9.1 9.4-12.4 fL Neutrophils Percent Auto 64.0 45-73 % Imm Gran Pct Auto 0.3 0.0-0.4 % Lymphocytes Percent Auto 26.0 20-40 % Monocytes Percent Auto 7.8 2-11 % Eosinophils Percent Auto 1.5 0-4 % Basophils Percent Auto 0.4 0-2 % NRBC Pct Auto 0.0 0.0-0.2 /100WBC Neutrophils Absolute Auto 4.6 2.0-8.3 x10*3/u L Imm Gran Abs Auto 0.02 0.00-0.03 X10*3/uL Lymphocytes Absolute Auto 1.9 1.2-4.9 X10*3/u L Monocytes Absolute Auto 0.6 0.1-1.2 X10*3/uL Eosinophils Absolute Auto 0.1 0.0-0.4 X10*3/u L Basophils Absolute Auto 0.0 0.0-0.2 X10*3/uL NRBC Abs Auto 0.000 0.0-0.012 X10*3/uL Comprehensive [place]. Panel Fa st Reviewed date:07/05/2025 04:22:31 PM Interpretation: Performing Lab:[facility], [address] [place] [phone] Notes/Report: Sodium 139 135-145 mmol/L Potassium 4.1 3.3-5.1 mmol/L Chloride 108 96-108 mmol/L Carbon Dioxide 26 22-29 mmol/L Anion Gap 9 12-20 Blood Urea Nitrogen 21 9-16 mg/dL Creatinine 1.10 0.5-1.4 mg/dL Estimated Glomerular Filt Rate > 60 Chronic Kidney Disease: Estimated GFR < 60 mL/min/1.73m2 Severe Kidney Disease: Estimated GFR < 15 mL/min/1.73m2 Glucose Fasting 104 60-99 mg/dL A fasting glucose from 100-125 mg/dl is considered impaired (pre-diabetes). Calcium 9.0 8.4-10.2 mg/dL Bilirubin Total 0.8 0.0-1.0 mg/dL Aspartate Amino Transferase 31 5-37 U/L Alanine Aminotransferase 29 0-40 U/L Total Protein 7.2 6.5-8.0 g/dL Albumin Level 3.9 3.5-5.0 g/dL Alkaline Phosphatase 112 39-117 U/L Lipid Panel Reviewed date:07/05/2025 12:57:32 PM Interpretation: Performing Lab:[address] [phone] Notes/Report: Triglycerides 61 <150 mg/dL Desirable Triglyceride: less than 150 mg/dL Borderline High Triglyceride 150-199 mg/dL High Triglyceride: 200-499 mg/dL Very High Triglyceride: greater than or equal to 5OO mg/dL Cholesterol 156 <200 mg/dL Desirable Cholesterol: less than 200 mg/dL Borderline High Cholesterol: 200-239 mg/dL High Cholesterol: greater than 239 mg/dL LDL Cholesterol Calculated 97 <100 mg/dL Desirable LDL: less than 100 mg/dL Near Optimal/Above Optimal LDL: 110-129 mg/dL Borderline High LDL: 130-159 mg/dL High LDL: 160-189 mg/dL Very High LDL: greater than or equal to 190 mg/dL HDL Cholesterol 47 >40 mg/dL Desirable HDL: greater than 40 mg/dL Note: This HDL assay may give artificially low results in patients with liver disease. PSA,Total (Free>4and<10) Reviewed date:07/05/2025 12:56:55 PM Interpretation: Performing Lab:[address] [phone] Notes/Report: PSA,Total (Free>4and<10) 6.52 0.00-4.00 ng/mL PSA methodology: Burgess Alinity i Chemiluminescent Microparticle Immunoassay (CMIA) UA ClnCatch+Micro w/rflx Cul t Reviewed date:07/05/2025 04:23:00 PM Interpretation: Performing Lab:[address] [phone] Notes/Report: Urine, Clean Catch Color Urine Yellow Appearance Urine Clear PH 5.5 5.0-9.0 Glucose Urine UA Negative Negative mg/dL Urine Blood Small (1+) Negative Specific [place] - Urine 1.020 1.005-1.025 Urine Protein Negative Neg-Trace mg/dL Urine Ketones Negative Negative mg/dL Nitrite Urine Negative Negative Leukocyte Esterase Urine Negative Negative RBC Urine 6-10 0-2 /HPF WBC Urine 0-5 0-5 /HPF Squamous Epithelial Cell Urine 0-2 0-2 /HPF Bacteria Urine None Seen None Seen Hyaline Casts Urine 0-2 0-2 /LPF REASON FOR VISIT yearly fasting labs Immunizations Vaccine Route Administration Date Status Comme nts Fluarix Quadrivalent - 150 IM Intramuscular 07/05/2025 Adm inistered Encounters Encounter Location Date Provider Diagnosis Richard Castro MD [address] [place], [place] [phone] 07/05/2025 Richard Castro Elevated PSA R97.20 ; Encounter for administration of vaccine Z23 and Pure hypercholesterolemia E78.00 Assessments Encounter Date Diagnosis (ICD Code) Assessment Notes Treatment Notes Treatment Clinical Notes Section Notes 07/05/2025 Elevated PSA (ICD-10 - R97.20) 07/05/2025 Encounter for administration of vaccine (ICD-10 - Z23) 07/05/2025 Pure hypercholesterolemia (ICD-10 - E78.00) Plan Of Treatment Next Appt Details Provider Name:Richard Chatman ier, 07/18/2025 01:00:00 PM, [address], [address], [place], [place], [phone], Progress Notes * Joselito HURD ADOB:[birth year] (75 yo M)Acc No.[id number]:07/05/2025 Progress Note Patient: Joselito HANNA Provider: Del Castro MD :1950 A ge:75 Y S ex:Male Date:07/05/2025 Address:[address] [place] [address] Subjective: * Chief Complaints: * 1 . Yearly fasting labs. * Medical History: Objective: * Vitals: Assessment: * Assessment: 1. E ncounter for administration of vaccine - Z23 (Primary) 2 . E levated PSA - R97.20 3 . P ure hypercholesterolemia - E78.00 Plan: * Treatment: 2. P ure hypercholesterolemia L AB: Complete Blood Count Auto Diff (Collection Date & Time - 07/05/2025 07:30 AM) L AB: Comprehensive [place]. Panel Fast (Collection Date & Time - 07/05/2025 07:30 AM) L AB: Lipid Panel (Collection Date & Time - 07/05/2025 07:30 AM) L AB: PSA,Total (Free>4and<10) (Collection Date & Time - 07/05/2025 07:30 AM) L AB: UA ClnCatch+Micro w/rflx Cult (Collection Date & Time - 07/05/2025 07:30 AM) * Immunizations: Fluarix Quadrivalent - 150 : 0.5 mL (Dose No:1) (Route: Intramuscular) given by Evelyn Blackwood , Office Staff on Left Deltoid * Procedure Codes: 3 6415 VENIPUNCT, ROUTINE*, 34084 FLU VACCINE NO PRESERV 3 & >, G0008 ADMN FLU VAC NO FEE SCHED SAME DAY * * The named appointment provid er may or may not be the originator of this progress note, and it is not deemed complete until electronically signed by the appointment provider. Sign off status: Pending * Provider: Del Castro MD Date: 09/04/2024 Generated for Per deleon/Amandeep/Maninder on: 09/07/2024 08:59 AM EST
--- NOTE | 2025-07-08 08:41 | A.OFFVIS_ITS ---
Intake Visit Reasons: PO- R TSH wound check Intake Note: Joselito is a 75 year old male who presents today for a post operative bandage change s/p right shoulder I&D, performed by Dr. Thomas on 06/19/25. Patient has been preforming wet to dry dressings daily, which is going well. he is worried about a few areas of swelling that he believes may be collestions of fluid. Allergies No Known Allergies (No Known Allergies*) Allergy (Verified 07/08/25 08:44) HPI HPI PO- R TSH wound check: Details: Joselito is a 75 year old male who presents today for a post operative bandage change s/p right shoulder I&D, performed by Dr. Thomas on 06/19/25. Patient has been performing wet to dry dressings daily, which is going well. [facility] Medical History Wears hearing aid in both ears [place] (hard of hearing) History of cardioversion BPH (benign prostatic hyperplasia) Hx MRSA infection (07/2018) Tremor Non-Hodgkin lymphoma Afib Hydronephrosis with renal and ureteral calculous obstruction (2019) Acute UTI Sepsis Calculus, renal Hydronephrosis Surgical History S/P right rotator cuff repair Hx of colonoscopy Hx of repair of right rotator cuff (~2014) History of left inguinal hernia repair (~2020) History of right inguinal hernia repair (08/28/18) History of bilateral inguinal hernia repair (06/28/17) History of arthroscopy of left knee Family History Father Throat cancer Mother Melanoma Leukemia Social History Household Members: Spouse and Children Housing: House Are you a primary primary care pediatrician to a significant other at home: No Do you presently have visiting nurse or other home services: No 75 years or older and lives alone: No Comment: hematoma right thigh, resolved no fracture with 12/2024 fall, no head strike Patient Tobacco Use Status: Former Tobacco user Tobacco use type: Cigarette service: Yes Current occupational status: retired Physical Exam Exam Exam: Small 45 mm opening without discharge or erythema. Much improved from prior. 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 Continue dry dressing changes daily. Compression with tape. Follow up 1 week. 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
--- OUTSIDE RECORDS SUMMARY | 2025-07-08 08:58 | XMS_ITS | Encounter Summary ---
Author Organization [facility] Address [address] [facility] [address] [place] [address] Phone Care Team Providers Care Oyster Planter Name Role Phone Richard Castro MD Primary Care Provider Encounter Details Date Type Department Care Team (Latest Contact Info) Description 11/15/2017 Ancillary Orders [facility] [address] 3rd Floor, [address] [place] [address] Av Orozco MD [address] [place] [address] Paroxysmal atrial fibrillation Social History Tobacco Use [...] Description 09/13/2025 10:00 AM EST Office Visit [facility] [address] 3rd Floor, [address] [place] [address] Roxy Burnette DNP [address] [place] [address], [address] [address] documented as of this encounter Results * TTE COMPREHENSIVE (11/17/2017 10:06 AM EDT) Anatomical Region Laterality Modality Heart Ultrasound us Av Orozco MD CV ECHO ORDERABLES Final Result documented in this encounter Visit Diagnoses Diagnosis Paroxysmal atrial fibrillation Atrial fibrillation documented in this encounter Care Teams Oyster Planter Relationship Specialty Start Date End Date Richard Castro MD [address] [place] [address] Dr CHASE [address] [place] [address] PCP - General 06/02/17 documented as of this encounter Additional Source Comments The information contained in this document represents components of the legal health record. It is not the complete legal health record.[facility]
--- OUTSIDE RECORDS SUMMARY | 2025-07-08 08:58 | XMS_ITS | Clinical Summary ---
Author Organization [facility] Address [address] [address] Phone Care Team Providers Care Assembler Show Motor Name Role Phone Richard Castro MD Primary [...] and now has another point to his [id number] score now making him by 2 which [...] Type Department Care Team Description 06/18/2025 Telephone [facility] [address] Floor, [address] [place] [address] Jeniffer Joseph DNP 05/17/2025 1:20 PM EDT Office Visit [facility] [address]rd Floor, [address] [place] [address] Dianelys Fonseca MD Paroxysmal atrial fibrillation (Primary Dx); Current use of snf anticoagulation 05/13/2025 4:00 PM EDT Office Visit [facility] [address] 3rd Floor, [address] [place] [address] Kyle Montanez MD Other chest pain (Primary [...] Description 09/13/2025 10:00 AM EST Office Visit [facility] [address] [place] [address] 3rd Floor, [address] [place] [address] Roxy Burnette DNP [address] [facility], [address] [address] Health Maintenance Due Date Last Done Comments [...] this topic Medical Devices Implanted Type Area Supervisor Lead Burning Device Identifier Shelf Expiration Date Model / Serial / Lot Mesh Mesh Pin Pin Right: Arm Procedures Procedure Name Priority Date/Time Associated Diagnosis Comments BASIC METABOLIC PANEL (BMP) Routine 09/10/2022 11:13 AM EST Persistent atrial fibrillation from Last 3 Months or Most Recently Relevant to Health Maintenance Results * (ABNORMAL) Basic metabolic panel (09/10/2022 11:13 AM EST) SODIUM 138 133 - 146 mmol/L [facility] CHLORIDE 102 96 - 108 mmol/L [facility] POTASSIUM 4.8 3.3 - 5.1 mmol/L [facility] CO2 27 21 - 35 mmol/L [facility] BUN 21(H) 6 - 19 mg/dL [facility] CREATININE 1.10 0.5 - 1.5 mg/dL [facility] GLUCOSE 93 70 - 99 mg/dL [facility] CALCIUM 9.2 8.4 - 10.3 mg/dL [facility] EGFR 71 >59 mL/min/1.7 3m2 [facility] Comment:Estimated glomerular filtration rate calculated using the CKD-EPI refit equation. ANION GAP 14 10 - 20 mmol/L [facility] Blood 09/10/2022 11:1 3 AM EST 09/10/2022 4:07 PM EST us Edenilson Stapleton MD LAB BLOOD BKR ORDERABLES Fin al Result [address] [address] from Last 3 Months or Most Recently Relevant to Health Maintenance Insurance [employer] MEDEX SUPPLEMENT MEDICARE PART A & B [employer] MEDEX SUPPLEMENT MEDICARE PART A & B [employer] MEDEX SUPPLEMENT MEDICARE PART A & B [employer] MEDEX SUPPLEMENT MEDICARE PART A & B [employer] MEDEX SUPPLEMENT MEDICARE PART A & B [employer] MEDEX SUPPLEMENT MEDICARE PART A & [place] [address] [place] [address] MEDEX SUPPLEMENT MEDICARE PART A & B [employer] MEDEX SUPPLEMENT MEDICARE PART A & B [place] [employer] MED[employer] SUPPLEMENT MEDICARE PART A & B Care Teams Assembler Show Motor Relationship Specialty Start Date End Date Richard Castro MD [address] [place] [address] [place] [address] PCP - General 06/02/17 Additional Source Comments The information contained in this document represents components of the legal health record. It is not the complete legal health record.[facility]
--- OUTSIDE RECORDS SUMMARY | 2025-07-08 08:58 | XMS_ITS | Encounter Summary ---
Author Organization [facility] Address [address] [facility] [address] [place] [address] Phone Care Team Providers Care Cell Repairer Name Role Phone Richard Castro MD Primary Care Provider Encounter Details Date Type Department Care Team (Latest Contact Info) Description 06/04/2017 Ancillary Orders [facility] [address] 3rd Floor, [address] [place] [address] Av Orozco MD [address] [place] [address] Diagnosis unknown Social History Tobacco Use Types [...] Description 09/13/2025 10:00 AM EST Office Visit [facility] [address] 3rd Floor, [address] [place] [address] Roxy Burnette DNP [address] [place] [address], [address] [address] documented as of this encounter Visit Diagnoses Diagnosis Diagnosis unknown documented in this encounter Care Teams Cell Repairer Relationship Specialty Start Date End Date Richard Castro MD [address] [place] [address] [place] [address] PCP - General 06/02/17 documented as of this encounter Additional Source Comments The information contained in this document represents components of the legal health record. It is not the complete legal health record.[facility]
--- OUTSIDE RECORDS SUMMARY | 2025-07-08 08:58 | XMS_ITS | Encounter Summary ---
Author Organization [facility] Address [address] [facility] [address] [place] [address] Phone Care Team Providers Care Rubber Goods Supervisor Name Role Phone Richard Castro MD Primary Care Provider Encounter Details Date Type Department Care Team (Late Contact Info) Description 08/26/2022 Procedure Pass [facility] [address] [place] [address] Social History Tobacco Use Types Packs/Day Years [...] Description 09/13/2025 10:00 AM EST Office Visit [facility] [address] [place] [address] 3rd Floor, [address] [place] [id number] Roxy Burnette DNP [facility], [address] [address] documented as of this encounter Visit Diagnoses Not on filedocumented in this encounter Care Teams Rubber Goods Supervisor Relationship Specialty Start Date End Date Richard Castro MD [address] [place] [address] [place] [address] PCP - General 06/02/17 documented as of this encounter Additional Source Comments The information contained in this document represents components of the legal health record. It is not the complete legal health record.[facility]
--- OUTSIDE RECORDS SUMMARY | 2025-07-08 08:59 | XMS_ITS | Patient Health Record ---
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 Problems Problem Type SNOMED Code ICD Code Onset Dates Problem Status W/U Status Risk Notes Problem Hemorrhoids (47161716) Hemorrhoids (455.6) Active confirmed Problem Colon cancer screening (989004571) Colon cancer screening (V76.51) Active confirmed Problem Feces contents abnormal (466440918) Abnormal findings in stool (792.1) Active confirmed Plan Of Treatment Future Test Test Name Order Date COLONOSCOPY 07/26/2014 Insurance Providers Payer Name Payer Address Payer Phone Subscriber Number Group Number Insured Name Patient Relationship to Insured Coverage Start Date Coverage End Date [facility] [address] [address] [place] [id number] ROOSEVELT SAMUELS Self - patient is the insured MEDICARE OF [place] [address] [facility] [place] [id number] ROOSEVELT SAMUELS Self - patient is the insured Medical (General) History Medical History History ICD Code lymphoma Atrial fibrillation mitral valve prolapse Surgical History Surgery Date(Month/Year) lymphectomy 1 node under arm 2010
--- OUTSIDE RECORDS SUMMARY | 2025-07-08 08:59 | XMS_ITS | Encounter Summary ---
Author Organization [facility] Address [address] [facility] [address] [place] [address] Phone Care Team Providers Care Publication Distributor Name Role Phone Richard Castro MD Primary Care Provider Encounter Details Date Type Department Care Team (Late st Contact Info) Description 12/12/2020 Procedure Pass Echo Lab [address] [place] [address] Social History Tobacco Use Types Packs/Day Years [...] Description 09/13/2025 10:00 AM EST Office Visit [facility] [address] [place] [address] 3rd Floor, [address] [place] [address] Roxy Burnette DNP [address] [facility], [address] [place] [address] documented as of this encounter Visit Diagnoses Not on filedocumented in this encounter Care Teams Publication Distributor Relationship Specialty Start Date End Date Richard Castro MD NPI: [id number] [place] [address] [place] [address] PCP - General 06/02/17 documented as of this encounter Additional Source Comments The information contained in this document represents components of the legal health record. It is not the complete legal health record.[facility]
--- OUTSIDE RECORDS SUMMARY | 2025-07-08 08:59 | XMS_ITS | Patient Health Record ---
Author Organization Richard Castro MD Address [address] [place], [place] [address] Care Team Providers Care Packaging Coordinator Name Role Phone Richard Castro Primary Care Provider Allergies No Known Allergies Results Component Value Reference Range Notes Complete Blood Count Auto Di ff Reviewed date:07/05/2025 12:57:53 PM Interpretation: Performing Lab:[facility], [address] [place] [phone] Notes/Report: White Blood Count 7.2 4.8-10.8 X10*3/uL [...] 0.0-0.2 /100WBC Neutrophils Absolute Auto 4.6 2.0-8.3 x10*3/uL Imm Gran Abs Auto 0.02 0.00-0.03 X10*3/uL Lymphocytes Absolute Auto 1.9 1.2-4.9 X10*3/uL Monocytes Absolute Auto 0.6 0.1-1.2 X10*3/uL Eosinophils Absolute Auto 0.1 0.0-0.4 X10*3/uL Basophils Absolute Auto 0.0 0.0-0.2 X10*3/uL NRBC Abs Auto 0.000 0.0-0.012 X10*3/uL Comprehensive [place]. Panel Fa st Reviewed date:07/05/2025 04:22:31 PM Interpretation: Performing Lab:[facility], [address] [place] [phone] Notes/Report: Sodium 139 135-145 mmol/L Potassium 4.1 [...] Panel Reviewed date:07/05/2025 12:57:32 PM Interpretation: Performing Lab:[address] [address] Notes/Report: Triglycerides 61 <150 mg/dL Desirable Triglyceride: [...] (Free>4and<10) Reviewed date:07/05/2025 12:56:55 PM Interpretation: Performing Lab:[address] [address] Notes/Report: PSA,Total (Free>4and<10) 6.52 0.00-4.00 ng/mL PSA methodology: Burgess Alinity i Chemiluminescent Microparticle Immunoassay (CMIA) UA ClnCatch+Micro w/rflx Cul t Reviewed date:07/05/2025 04:23:00 PM Interpretation: Performing Lab:[address] [address] Notes/Report: Urine, Clean Catch Color Urine Yellow Appearance Urine Clear PH 5.5 5.0-9.0 Glucose Urine UA Negative Negative mg/dL Urine Blood Small (1+) Negative Specific [place] - Urine 1.020 1.005-1.025 Urine Protein Negative [...] ff Reviewed date:12/24/2024 05:16:55 PM Interpretation: Performing Lab:[facility], [address] [place] [phone] Notes/Report: White Blood Count 8.2 4.8-10.8 X10*3/uL [...] Panel Reviewed date:12/24/2024 05:16:08 PM Interpretation: Performing Lab:[facility], [address] [place] [phone] Notes/Report: Sodium 137 135-145 mmol/L Potassium 4.2 [...] date:12/19/2024 05:35:49 PM Interpretation: Performing Lab: Notes/Report: [address] [address] [address] Scan Report Signed Patient: Joselito Hurd MR#: [id number] : 1950 Acct:[id number] Age/Sex: 74 / M ADM Date: 12/17/24 Loc: HO.CT Attending Dr: Js Marquez PA-C Ordering Physician: Js Marquez PA-C Date of Service: 12/17/24 Procedure(s): CT shoulder RT wo IV con Accession Number(s): [id number] cc: Richard Castro MD; Js Marquez PA-C Report Number: [id number]: Total DLP = 283.00 mGy-cm CLINICAL HISTORY: [...] in OV> 12/19/24913 DD/ 2 TD/TT: 12/19/24912 Electric Crane Operator: [place] [address] CT Scan Report Signed Patient: Flavia Hurd Sr MR#: [id number] : 1950 Acct:[id number] Age/Sex: 74 / M ADM Date: 12/17/24 Loc: HO.CT Attending Dr: Justino Marquez PA-C Ordering Physician: Js Marquez PA-C Date of Service: 12/17/24 Procedure(s): CT staci obrien RT wo IV con Accession Number(s): [id number] cc: Richard Castro MD; Js Marquez PA-C [...] in OV> 12/19/24913 DD/ 2 TD/TT: 12/19/24912 Electric Crane Operator: MRSA Nasal Screen Reviewed date:01/29/2025 05:00:18 PM Interpretation: Performing Lab:[facility], [address] [place] [phone] Notes/Report: MRSA Nasal PCR NEGATIVE Negative SA Nasal PCR NEGATIVE Negative MRSA Interpretation SEE NOTE MRSA target DNA not detected; SA target DNA not detected. A MRSA NEGATIVE, SA NEGATIVE test result does not preclude MRSA or SA nasal colonization. Complete Blood Count Auto Di ff Reviewed date:02/21/2025 05:04:30 PM Interpretation: Performing Lab:[address] [address] Notes/Report: White Blood Count 5.4 4.8-10.8 X10*3/uL [...] Panel Reviewed date:02/21/2025 04:13:13 PM Interpretation: Performing Lab:[facility], [address] [place] [phone] Notes/Report: Sodium 138 135-145 mmol/L Potassium 4.5 [...] Screen Reviewed date:02/21/2025 04:00:33 PM Interpretation: Performing Lab:[facility], [address] [place] [phone] Notes/Report: Spec expiration changed by ARPITA on 02/21/25 Reason: PAT NURSING: Call Blood Bank (ext. [phone]) to band patient on admission. Type and Screen in effect until 2300 on 02/26/25 Witnessed by PORTGT Channel Blood Type AP Antibody Screen NEGATIVE Hemoglobin and Hematocrit Reviewed date:02/26/2025 12:28:58 PM Interpretation: Performing Lab:[facility], [address] [place] [phone] Notes/Report: Hemoglobin 13.7 14.0-18.0 g/dl Hematocrit 40.8 42.0-52.0 % Pathology Reviewed date:02/28/2025 05:07:11 PM Interpretation: Performing Lab:[facility], [address] [place] [phone] Notes/Report: ------ Name: Joselito Hurd Sr Age/Sex: 75/M : 1950 Unit#: [id number] Attend Dr: Clint Thomas MD Re02/26/25 Status : [facility] Location: [facility] Disch: ------ SPEC : [id number] RECD : 02/27/25 STATUS: EARNEST WALLER NUM: [id number] KRISTINA: 02/26/25 [facility] DR: Clint Thomas MD ENTERED: 02/27/25 52 [...] yet, brittle, tapia-yellow with yellow-pink bone marrow. Wireline Operator secti ons are submitted in a cassette labeled A1 following decalcification. CEDS IHC S/NG Disclaimer NOTE: Unless otherwi se stated, all tissue is formalin-fixed and paraffin-embedded. Some or all of the immunohistochemical tests reported herein may have been developed and their performance characteristics determined by [facility]. They have not been cleared or appr saima by the U.S. Food and Drug Administration (FDA). However, the FDA has determined that such clearance or approval is not necessary. This laboratory is certified under the Clinical Laboratory Improvement Amendments of 1988 (CLIA) as qualified to perform high comp lexity clinical laboratory testing. Copies To: Richard Castro MD [facility] [address] [place] [address] CONTINUED ON NEXT PAGE ------ Name: Joselito Hurd Sr Age/Sex: 75/M : 1950 Unit#: [id number] Attend Dr: Clint Thomas MD Re02/26/25 Status : [facility] Location: [facility] Disch: ------ SPEC : [id number] RECD : 02/27/25 STATUS: EARNEST WALLER NUM: [id number] KRISTINA: 02/26/25-1448 [facility] DR: Clint Thomas MD ENTERED: 02/27/25 53 SP TYPE: Surgical OTHR DR: Richard Castro MD ORDERED: Gross Micro L3, Decal Copies To: (Continued) Clint Thomas MD [facility] [address] [place] [address] Dr [address] [place] [address] ------ Signed (signature on file) Leon Keene MD 02/28/25 1146 ------ END OF REPORT XR shoulder RT 1V Reviewed date:02/26/2025 05:10:31 PM Interpretation: Performing Lab: Notes/Report: [address] [address] XRay Report Signed Patient: Joselito Hurd Sr MR#: [id number] : 1950 Acct:[id number] Age/Sex: 75 / M ADM Date: 02/26/25 Loc: HO.S3 345-[address]: Clint Thomas MD Ordering Physician: Js Marquez PA-C Date of Service: 02/26/25 Procedure(s): XR shoulder RT 1V Accession Number(s): [id number] cc: Richard Castro MD; Js Marquez PA-C [...] 02/26/25 1702 DD/ 1539 TD/TT: 02/26/25 1642 Electric Crane Operator: [address] [address] XRay Report Signed Patient: Flavia Hurd Sr MR#: [id number] : 1950 Acct:[id number] Age/Sex: 75 / M ADM Date: 02/26/25 Loc: HO.S3 345-[address]: Clint ellison MD Ordering Physician: Js Marquez PA-C Date of Service: 02/26/25 Procedure(s): XR staci ulder RT 1V Accession Number(s): [id number] cc: Richard Castro MD; Js Marquez PA-C [...] Dictated By: Cornell Alaniz MD Signed By: <Electron ically signed by Cornell Alaniz MD in OV> 02/26/25 1702 DD/ 1539 TD/TT: 02/26/25 1642 Electric Crane Operator: Complete Blood Count Auto Di ff Reviewed date:02/27/2025 04:10:37 PM Interpretation: Performing Lab:[facility], [address] [place] [phone] Notes/Report: White Blood Count 11.9 4.8-10.8 X10*3/uL [...] g Reviewed date:02/27/2025 04:01:26 PM Interpretation: Performing Lab:[facility], [address] [place] [phone] Notes/Report: Sodium 136 135-145 mmol/L Potassium 4.2 [...] stain Reviewed date:06/20/2025 05:05:21 PM Interpretation: Performing Lab:[facility], [address] [place] [phone] Notes/Report: RIGHT SHOULDER PER R/O C.ACNES RT SHOULDER Gram stain Gram stain results: Gram stain 4+ polys Gram stain 4+ red blood cells Gram stain No organisms seen Routine Culture Reviewed date:06/20/2025 03:38:27 PM Interpretation: Performing Lab:[facility], [address] [place] [phone] Notes/Report: RIGHT SHOULDER PER R/O C.ACNEVani RT SHOULDER Routine Culture No growth after 2 days Anaerobic Culture Reviewed date:06/20/2025 03:38:01 PM Interpretation: Performing Lab:[facility], [address] [place] [phone] Notes/Report: RIGHT SHOULDER PER R/O C.ACNES RT SHOULDER O:CUTIAC Cutibacterium acnes Anaerobic Culture B-Lac Susc (reported) Anaerobic Culture Beta-lactamase not produced; suggests PEN/AMP susceptibility Anaerobic Culture Quant Org ID Anaerobic Culture 1+ Liver Panel Reviewed date:06/27/2025 04:46:56 PM Interpretation: Performing Lab:[facility], [address] [place] [phone] Notes/Report: Bilirubin Total 0.2 0.0-1.0 mg/dL Bilirubin [...] Problem Status W/U Status Risk Notes Problem 501818086 Neuropathy (G62.9) Active confirmed Problem 95628083 Prostatism (N40.0) Active confirmed Problem 760819524 Paroxysmal atria l fibrillation (I48.0) Active confirmed Problem 279193464 Essential tremor (G25.0) Active confirmed Problem 630526229720054 Erectile dysfunc tion due to arterial insufficiency (N52.01) Active confirmed Problem 23953207 Mitral valve dis order (I05.9) Active confirmed Problem Pure hypercholesterolemia (164934282) Elevated LDL cholesterol level (E78.0) Active confirmed Problem 432890835 Non-rheumatic mi tral regurgitation (I34.0) Active confirmed Problem 650381940 Pure hypercholesterolemia (E78.00) Active confirmed Problem 863671339 Elevated PSA (R97.20) Active confirme d Problem 383654751 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 confirmed Problem 60023444 Hydronephrosis 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) Active confirmed Problem 871727136 Elevated serum cholesterol (E78.9) Active confirmed Problem 571142793 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 Vital Signs Blood pressure diastolic 70 mm Hg 12/24/2024 Height 70.50 in 12/24/2024 Blood pressure systolic 118 mm Hg 12/24/2024 Weight 200 lbs 12/24/2024 BMI 28.29 kg/m2 12/24/2024 Encounters Encounter Location Date Provider Diagnosis Richard Castro MD [address] [place], [place] [phone] 07/05/2025 Richard Castro Elevated PSA R97.20 ; Encounter for administration of vaccine Z23 and Pure hypercholesterolemia E78.00 Richard Castro MD [address] [place] [id number] 07/17/2024 Richard Castro Essential tremor G25 .0 ; Pure hypercholesterolemia E78.00 ; Elevated PSA R97.20 ; Paroxysmal atrial fibrillation I48.0 ; Colon cancer screening Z12.11 and Depression screening Z13.31 Richard Castro MD [address] [place] [phone] 12/24/2024 Richard Castro Mass in neck R22.1 ; Right shoulder pain, unspecified chronicity M25.511 and Preop examination Z01.818 Richard Castro MD [address] [place] [id number] 01/15/2025 Richard Castro MD [address] [place] [phone] 02/28/2025 Richard Castro Assessments Encounter Date Diagnosis (ICD Code) Assessment Notes Treatment Notes Treatment Clinical Notes Section Notes 07/05/2025 Elevated PSA (ICD-10 - R97.20) 07/05/2025 Encounter for administration of vaccine (ICD-10 - Z23) 07/17/2024 Essential tremor (ICD-10 - G25.0) 07/17/2024 Pure hypercholesterolemia (ICD-10 - E78.00) 12/24/2024 Mass in neck (ICD-10 - R22.1) THE ORDER WAS FAXED TO [facility], pending diagnsotic testing 12/24/2024 Right shoulder pain, unspecified chronicity (ICD-10 - M25.511) 07/05/2025 Pure hypercholesterolemia (ICD-10 - E78.00) 07/17/2024 Elevated PSA (ICD-10 - R97.20) had been over 6 4 y ears ago followed by urology. need notes from last visit/ notes will be requested 12/24/2024 Preop examination (ICD-10 - Z01.818) at this point i don't find anything medically to prevent his shoulder surgery if cleared by his activity assistant 07/17/2024 Paroxysmal atrial fibrillation (ICD-10 - I48.0) have warned him of the risk of stroke and he should be on anticoag. he is going to think about it and get back to me or maybe wait/ get last note from [facility] 07/17/2024 Colon cancer screeni ng (ICD-10 [...] Name:Richard Chatman ier, 07/18/2025 01:00:00 PM, [address], [address], [place], [place], [phone], Insurance Providers Payer Name Payer Address Payer Phone Subscriber Number Group Number Insured Name Patient Relationship to Insured Coverage Start Date Coverage End Date MEDICARE NHIC [address] [place] [address] [id number] Joselito Hurd Self - patient is the insured MED[employer] OF [employer] [address] [place] [address] [id number] Joselito Hurd Self - patient is the [...]
== END 2025-07-08 09:40 | disposition home or self-care (01) ==
LOC: HO.HOS 08:37
PROVIDERS: PCP Internal Medicine; Visit Provider Orthopaedic Surgery
DX: T84.59XA Infection and inflammatory reaction due to other internal joint prosthesis, initial encounter (principal); Z96.611 Presence of right artificial shoulder joint
CPT/HCPCS: 99024

== ENCOUNTER → 2025-07-08 08:37 | Outpatient (BNVA) | payer MEDICARE, SELFPAY | PROVIDERS: PCP Internal Medicine; Visit Provider Orthopaedic Surgery | DX: T84.59XA Infection and inflammatory reaction due to other internal joint prosthesis, initial encounter (principal); Z96.611 Presence of right artificial shoulder joint | CPT/HCPCS: 99212 ==

== ENCOUNTER 2025-07-15 10:22 | Outpatient (AMB) | payer MEDICARE, SELFPAY ==
--- NOTE | 2025-07-15 10:24 | A.OFFVIS_ITS ---
Intake Visit Reasons: PO- RT rTSA I&D 06/19/25 - Wound Check Intake Note: Joselito is a 75 year old Left Hand dominant male who presents today for a post operative wound check about 3 weeks s/p Right Shoulder I&D 06/19/25 & about 5 Months s/p Right Reverse TSA 02/26/25. At his last visit he was instructed on how to perform daily dry dressing changes with compression tape. He explains that he has been completing daily dry dressing changes daily. There is flud and white chunks chunks that come out of the incision. Allergies No Known Allergies (No Known Allergies*) Allergy (Verified 07/15/25 10:24) HPI HPI PO- RT rTSA I&D 06/19/25 - Wound Check: Details: Joselito is a 75 year old Left Hand dominant male who presents today for a post operative wound check about 3 weeks s/p Right Shoulder I&D 06/19/25 & about 5 Months s/p Right Reverse TSA 02/26/25. At his last visit he was instructed on how to perform daily dry dressing changes with compression tape. He explains that he has been completing daily dry dressing changes daily. He is taking linezolid b.i.d.. He is on Xarelto. Denies fevers and chills. Pain is present. [facility] Medical History Wears hearing aid in both ears [place] (hard of hearing) History of cardioversion BPH (benign prostatic hyperplasia) Hx MRSA infection (07/2018) Tremor Non-Hodgkin lymphoma Afib Hydronephrosis with renal and ureteral calculous obstruction (2019) Acute UTI Sepsis Calculus, renal Hydronephrosis Surgical History S/P right rotator cuff repair Hx of colonoscopy Hx of repair of right rotator cuff (~2014) History of left inguinal hernia repair (~2020) History of right inguinal hernia repair (08/28/18) History of bilateral inguinal hernia repair (06/28/17) History of arthroscopy of left knee Family History Father Throat cancer Mother Melanoma Leukemia Social History Household Members: Spouse and Children Housing: House Are you a primary wound care center consultant to a significant other at home: No Do you presently have visiting nurse or other home services: No 75 years or older and lives alone: No Comment: hematoma right thigh, resolved no fracture with 12/2024 fall, no head strike Patient Tobacco Use Status: Former Tobacco user Tobacco use type: Cigarette service: Yes Current occupational status: retired Physical Exam Exam Exam: Wound is healing nicely with 1 small area minimal serous drainage. Erythema has decreased significantly. Can get his hand to his mouth. 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 Discussed getting a 2nd opinion and Meenu with Dr. Nichols. I think this is reasonable. We will see him back in 2 weeks. I will work on getting him appointment [facility]. Continue linezolid. 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
--- OUTSIDE RECORDS SUMMARY | 2025-07-15 13:02 | XMS_ITS | Encounter Summary ---
Author Organization [facility] Address [address] [place] [address] Phone Care Team Providers Care Retail Area Manager Name Role Phone Richard Castro MD Primary Care Provider Encounter Details Date Type Department Care Team (Latest Contact Info) Description 11/15/2017 Ancillary Orders [facility] [address] Floor, [address] [place] [address] Av Orozco MD [address] [place] [address] Paroxysmal atrial fibrillation Social History Tobacco Use [...] Description 09/13/2025 10:00 AM EST Office Visit [facility] [address] 3[address] Floor, [address] [place] [address] Roxy Burnette DNP [address] [place] [address], [address] [address] documented as of this encounter Results * TTE COMPREHENSIVE (11/17/2017 10:06 AM EDT) Anatomical Region Laterality Modality Heart Ultrasound us Av Orozco MD CV ECHO ORDERABLES Final Result documented in this encounter Visit Diagnoses Diagnosis Paroxysmal atrial fibrillation Atrial fibrillation documented in this encounter Care Teams Retail Area Manager Relationship Specialty Start Date End Date Richard Castro MD [address] [place] [address] Dr CHASE [address] [place] [address] PCP - General 06/02/17 documented as of this encounter Additional Source Comments The information contained in this document represents components of the legal health record. It is not the complete legal health record.[facility]
--- OUTSIDE RECORDS SUMMARY | 2025-07-15 13:02 | XMS_ITS | Encounter Summary ---
Author Organization [facility] Address [address] [facility] [place] [address] Phone Care Team Providers Care Fast Brim Pouncer Name Role Phone Richard Castro MD Primary Care Provider Encounter Details Date Type Department Care Team (Latest Contact Info) Description 06/04/2017 Ancillary Orders [facility] [address] 3[address] Floor, [address] [place] [address] Av Orozco MD [address] [place] [address] Diagnosis unknown Social History Tobacco Use Types [...] Description 09/13/2025 10:00 AM EST Office Visit [facility] [address] 3[address] Floor, [address] [place] [address] Roxy Burnette DNP [address] [place] [address], [address] [address] documented as of this encounter Visit Diagnoses Diagnosis Diagnosis unknown documented in this encounter Care Teams Fast Brim Pouncer Relationship Specialty Start Date End Date Richard Castro MD [address] [place] [address] [place] [address] PCP - General 06/02/17 documented as of this encounter Additional Source Comments The information contained in this document represents components of the legal health record. It is not the complete legal health record.[facility]
--- OUTSIDE RECORDS SUMMARY | 2025-07-15 13:02 | XMS_ITS | Clinical Summary ---
Author Organization [facility] Address [address] [address] Phone Care Team Providers Care Idea Man Name Role Phone Richard Castro MD Primary [...] and now has another point to his [id number] score now making him by 2 which [...] Type Department Care Team Description 06/18/2025 Telephone [facility] [address] Floor, [address] [place] [address] Jeniffer Joseph DNP 05/17/2025 1:20 PM EDT Office Visit [facility] [address], [address] [place] [address] Dianelys Fonseca MD Paroxysmal atrial fibrillation (Primary Dx); Current use of supervisor intermediates anticoagulation 05/13/2025 4:00 PM EDT Office Visit [facility] [address] Floor, [address] [place] [address] Kyle Montanez MD Other chest pain (Primary [...] Description 09/13/2025 10:00 AM EST Office Visit [facility] [address] [place] [address] 3rd Floor, [address] [place] [address] Roxy Burnette DNP [address] [facility], [address] [address] Health Maintenance Due Date Last Done Comments [...] this topic Medical Devices Implanted Type Area Lithographic Proofer Device Identifier Shelf Expiration Date Model / Serial / Lot Mesh Mesh Pin Pin Right: Arm Procedures Procedure Name Priority Date/Time Associated Diagnosis Comments BASIC METABOLIC PANEL (BMP) Routine 09/10/2022 11:13 AM EST Persistent atrial fibrillation from Last 3 Months or Most Recently Relevant to Health Maintenance Results * (ABNORMAL) Basic metabolic panel (09/10/2022 11:13 AM EST) SODIUM 138 133 - 146 mmol/L [facility] CHLORIDE 102 96 - 108 mmol/L [facility] POTASSIUM 4.8 3.3 - 5.1 mmol/L [facility] CO2 27 21 - 35 mmol/L [facility] BUN 21(H) 6 - 19 mg/dL [facility] CREATININE 1.10 0.5 - 1.5 mg/dL [facility] GLUCOSE 93 70 - 99 mg/dL [facility] CALCIUM 9.2 8.4 - 10.3 mg/dL [facility] EGFR 71 >59 mL/min/1.7 3m2 [facility] Comment:Estimated glomerular filtration rate calculated using the CKD-EPI refit equation. ANION GAP 14 10 - 20 mmol/L [facility] Blood 09/10/2022 11:1 3 AM EST 09/10/2022 4:07 PM EST us Edenilson Stapleton MD LAB BLOOD BKR ORDERABLES Fin al Result [address] [address] from Last 3 Months or Most Recently Relevant to Health Maintenance Insurance [employer] MEDEX SUPPLEMENT MEDICARE PART A & B [employer] SUPPLEMENT MEDICARE PART A & B [employer] SUPPLEMENT MEDICARE PART A & B [employer] MEDEX SUPPLEMENT MEDICARE PART A & B [employer] MED[employer] SUPPLEMENT MEDICARE PART A & B [employer] MED[employer] SUPPLEMENT MEDICARE PART A & [place] [address] [place] [address] MEDEX SUPPLEMENT MEDICARE PART A & B [employer] MEDEX SUPPLEMENT MEDICARE PART A & B [place] [employer] MEDEX SUPPLEMENT MEDICARE PART A & B Care Teams Idea Man Relationship Specialty Start Date End Date Richard Castro MD [address] [place] [address] [place] [address] PCP - General 06/02/17 Additional Source Comments The information contained in this document represents components of the legal health record. It is not the complete legal health record.[facility]
--- OUTSIDE RECORDS SUMMARY | 2025-07-15 13:02 | XMS_ITS | Encounter Summary ---
Author Organization [facility] Address [address] [place] [address] Phone Care Team Providers Care Customer Agent Name Role Phone Richard Castro MD Primary Care Provider Encounter Details Date Type Department Care Team (Late Contact Info) Description 08/26/2022 Procedure Pass [facility] [address] [place] [address] Social History Tobacco Use Types Packs/Day Years [...] Description 09/13/2025 10:00 AM EST Office Visit [facility] [address] [place] [address] 3rd Floor, [address] [place] [phone] Roxy Burnette DNP [address] [facility], [address] [address] documented as of this encounter Visit Diagnoses Not on filedocumented in this encounter Care Teams Customer Agent Relationship Specialty Start Date End Date Richard Castro MD [address] [place] [address] [place] [address] PCP - General 06/02/17 documented as of this encounter Additional Source Comments The information contained in this document represents components of the legal health record. It is not the complete legal health record.[facility]
--- OUTSIDE RECORDS SUMMARY | 2025-07-15 13:03 | XMS_ITS | Encounter Summary ---
Author Organization [facility] Address [address] [place] [address] Phone Care Team Providers Care Garden Machinery Mechanic Name Role Phone Richard Castro MD Primary Care Provider Encounter Details Date Type Department Care Team (Late st Contact Info) Description 12/12/2020 Procedure Pass [facility] [address] [place] [address] Social History Tobacco Use Types Packs/Day Years [...] Description 09/13/2025 10:00 AM EST Office Visit [facility] [address] [place] [address] 3rd Floor, [address] [place] [address] Roxy Burnette DNP [address] [facility], [address] [place] [address] documented as of this encounter Visit Diagnoses Not on filedocumented in this encounter Care Teams Garden Machinery Mechanic Relationship Specialty Start Date End Date Richard Castro MD NPI: [id number] [place] [address] [place] [address] PCP - General 06/02/17 documented as of this encounter Additional Source Comments The information contained in this document represents components of the legal health record. It is not the complete legal health record.[facility]
== END 2025-07-15 11:10 | disposition home or self-care (01) ==
LOC: HO.HOS 10:23
PROVIDERS: PCP Internal Medicine; Visit Provider Orthopaedic Surgery
DX: T84.59XA Infection and inflammatory reaction due to other internal joint prosthesis, initial encounter (principal); Z96.611 Presence of right artificial shoulder joint
CPT/HCPCS: 99024

== ENCOUNTER → 2025-07-15 10:22 | Outpatient (BNVA) | payer MEDICARE, SELFPAY | PROVIDERS: PCP Internal Medicine; Visit Provider Orthopaedic Surgery | DX: T84.59XD Infection and inflammatory reaction due to other internal joint prosthesis, subsequent encounter (principal); Z96.611 Presence of right artificial shoulder joint | CPT/HCPCS: 99212 ==

== ENCOUNTER 2025-07-20 09:54 | Outpatient (REF) | payer MEDICARE, SELFPAY ==
--- OUTSIDE RECORDS SUMMARY | 2025-07-20 09:58 | XMS_ITS | Encounter Summary ---
Author Organization [facility] Address [address] [place] [address] Phone Care Team Providers Care Assistant Account Manager Name Role Phone Richard Castro MD Primary Care Provider Encounter Details Date Type Department Care Team (Latest Contact Info) Description 06/04/2017 Ancillary Orders [facility] [address] 3rd Floor, [address] [place] [address] Av Orozco MD [address] [place] [address] Diagnosis unknown Social History Tobacco Use Types [...] Description 09/13/2025 10:00 AM EST Office Visit [facility] [address] 3rd Floor, [address] [place] [address] Roxy Burnette DNP [address] [place] [address], [address] [address] documented as of this encounter Visit Diagnoses Diagnosis Diagnosis unknown documented in this encounter Care Teams Assistant Account Manager Relationship Specialty Start Date End Date Richard Castro MD [address] [place] [address] [place] [address] PCP - General 06/02/17 documented as of this encounter Additional Source Comments The information contained in this document represents components of the legal health record. It is not the complete legal health record.[facility]
--- OUTSIDE RECORDS SUMMARY | 2025-07-20 09:58 | XMS_ITS | Encounter Summary ---
Author Organization [facility] Address [address] [place] [address] Phone Care Team Providers Care Blender Laborer Name Role Phone Richard Castro MD Primary Care Provider Encounter Details Date Type Department Care Team (Latest Contact Info) Description 11/15/2017 Ancillary Orders [facility] [address] 3rd Floor, [address] [place] [address] Av Orozco MD [address] [place] [address] Paroxysmal atrial fibrillation Social History Tobacco Use [...] Description 09/13/2025 10:00 AM EST Office Visit [facility] [address] 3rd Floor, [address] [place] [address] Roxy Burnette DNP [address] [place] [address], [address] [address] documented as of this encounter Results * TTE COMPREHENSIVE (11/17/2017 10:06 AM EDT) Anatomical Region Laterality Modality Heart Ultrasound us Av Orozco MD CV ECHO ORDERABLES Final Result documented in this encounter Visit Diagnoses Diagnosis Paroxysmal atrial fibrillation Atrial fibrillation documented in this encounter Care Teams Blender Laborer Relationship Specialty Start Date End Date Richard Castro MD [address] [place] [address] Dr CHASE [address] [place] [address] PCP - General 06/02/17 documented as of this encounter Additional Source Comments The information contained in this document represents components of the legal health record. It is not the complete legal health record.[facility]
--- OUTSIDE RECORDS SUMMARY | 2025-07-20 09:58 | XMS_ITS | Clinical Summary ---
Author Organization [facility] Address [address] [address] Phone Care Team Providers Care Senior Planner Name Role Phone Richard Castro MD Primary [...] and now has another point to his [id number] score now making him by 2 which [...] Type Department Care Team Description 06/18/[address] [facility] [address] Floor, [address] [place] [address] Jeniffer Joseph DNP 05/17/2025 1:20 PM EDT Office Visit 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 [address] Floor, [address] [place] [address] Kyle Montanez MD Other chest pain (Primary [...] Description 09/13/2025 10:00 AM EST Office Visit [facility] [address] [place] [address] 3rd Floor, [address] [place] [address] Roxy Burnette DNP 22 [facility], [address] [address] Health Maintenance Due Date Last Done Comments [...] this topic Medical Devices Implanted Type Area Tape Coater Device Identifier Shelf Expiration Date Model / Serial / Lot Mesh Mesh Pin Pin Right: Arm Procedures Procedure Name Priority Date/Time Associated Diagnosis Comments BASIC METABOLIC PANEL (BMP) Routine 09/10/2022 11:13 AM EST Persistent atrial fibrillation from Last 3 Months or Most Recently Relevant to Health Maintenance Results * (ABNORMAL) Basic metabolic panel (09/10/2022 11:13 AM EST) SODIUM 138 133 - 146 mmol/L [facility] CHLORIDE 102 96 - 108 mmol/L [facility] POTASSIUM 4.8 3.3 - 5.1 mmol/L [facility] CO2 27 21 - 35 mmol/L [facility] BUN 21(H) 6 - 19 mg/dL [facility] CREATININE 1.10 0.5 - 1.5 mg/dL [facility] GLUCOSE 93 70 - 99 mg/dL [facility] CALCIUM 9.2 8.4 - 10.3 mg/dL [facility] EGFR 71 >59 mL/min/1.7 3m2 [facility] Comment:Estimated glomerular filtration rate calculated using the CKD-EPI refit equation. ANION GAP 14 10 - 20 mmol/L [facility] Blood 09/10/2022 11:1 3 AM EST 09/10/2022 4:07 PM EST us Edenilson Stapleton MD LAB BLOOD BKR ORDERABLES Fin al Result [address] [address] from Last 3 Months or Most Recently Relevant to Health Maintenance Insurance [email or web address] CROSS MEDEX SUPPLEMENT MEDICARE PART A & B [employer] MEDEX SUPPLEMENT MEDICARE PART A & B [employer] MEDEX SUPPLEMENT MEDICARE PART A & B [employer] CROSS MEDEX SUPPLEMENT MEDICARE PART A & B [employer] MEDEX SUPPLEMENT MEDICARE PART A & B [employer] MEDEX SUPPLEMENT MEDICARE PART A & [place] [address] [address] MEDEX SUPPLEMENT MEDICARE PART A & B [email or web address] CROSS MEDEX SUPPLEMENT MEDICARE PART A & B [place] [employer] MEDEX SUPPLEMENT MEDICARE PART A & B Care Teams Senior Planner Relationship Specialty Start Date End Date Richard Castro MD [address] [place] [address] [place] [address] PCP - General 06/02/17 Additional Source Comments The information contained in this document represents components of the legal health record. It is not the complete legal health record.[facility]
--- OUTSIDE RECORDS SUMMARY | 2025-07-20 09:58 | XMS_ITS | Encounter Summary ---
Author Organization [facility] Address 399 [facility] [address] [place] [address] Phone Care Team Providers Care Commercial Producer Name Role Phone Richard Castro MD Primary Care Provider Encounter Details Date Type Department Care Team (Late Contact Info) Description 08/26/2022 Procedure [facility] [address] [place] [address] Social History Tobacco Use Types Packs/Day Years [...] Description 09/13/2025 10:00 AM EST Office Visit [facility] [address] [place] [address] 3rd Floor, [address] [place] [phone] Roxy Burnette DNP 22 [facility], [address] [address] documented as of this encounter Visit Diagnoses Not on filedocumented in this encounter Care Teams Commercial Producer Relationship Specialty Start Date End Date Richard Castro MD [address] [place] [address] [place] [address] PCP - General 06/02/17 documented as of this encounter Additional Source Comments The information contained in this document represents components of the legal health record. It is not the complete legal health record.[facility]
--- OUTSIDE RECORDS SUMMARY | 2025-07-20 09:58 | XMS_ITS | Clinical Summary ---
Author Organization 299 [facility] Address [address] [place] [address] Phone Care Team Providers Care Chimney Builder Name Role Phone Richard Castro MD Primary Care Provider Encounters Date Type Department Care Team Description 07/19/2025 Lab Requisition [facility] - Main Lab 299 [facility] [place] [address] Nikolay Marcano PA Gross hematuria from Last 3 Months Social History Tobacco Use Types Packs/Day Years Used Date Smoking Tobacco: Never Assessed Sex and Gender Information Value Date Recorded Sex Assigned at Not on file Legal Sex Male 2:29 AM EST Gender Identity Not on file Sexual Orientation Not on file Plan of Treatment Health Maintenance Due Date Last Done Comments DTaP,Tdap,and Td Vaccines (1 - Tdap) 02/25/1968 Pneumococcal Vaccine: 50+ Ye ars (1 of 1 - PCV) 1999 Zoster Vaccines (1 of 2) 1999 Cholesterol Screening (Lipid Panel) 10/21/2023 Falls Risk Assessment 10/21/2023 Hepatitis C Screening 10/21/2023 Medicare Annual Wellness Visit 10/21/2023 Social Influencers of Health Screening 10/21/2023 RSV Immunization Adult Patie nts (1 - 1-dose 75+ series) 02/25/2024 Depression Screening 08/15/2024 COVID-19 Vaccine ( - 2024-2 6 season) 2025 Influenza Vaccine (#1) 2025 HIB Vaccines Aged Out No longer eligi ble based on patient's age to complete this topic HPV Vaccines Aged Out No longer eligi ble based on patient's age to complete this topic Hepatitis A Vaccines Aged Out No long er eligible based on patient's age to complete this topic Hepatitis B Vaccines Aged Out No long er eligible based on patient's age to complete this topic IPV Vaccines Aged Out No longer eligi ble based on patient's age to complete this topic MMR Vaccines Aged Out No longer eligi ble based on patient's age to complete this topic Meningococcal ACWY Vaccine Aged Out N o longer eligible based on patient's age to complete this topic Meningococcal B Vaccine Aged Out No l onger eligible based on patient's age to complete this topic RSV Immunization Patients Un hany 20 months Aged Out No longer eligible b ased on patient's age to complete this topic Varicella Vaccines Aged Out No longer eligible based on patient's age to complete this topic Insurance MEDICARE Care Teams Chimney Builder Relationship Specialty Start Date End Date Richard Castro MD [address] [place] [address] [address] [place] [address] PCP - General Internal Medicine 07/19/25
--- OUTSIDE RECORDS SUMMARY | 2025-07-20 09:58 | XMS_ITS | Encounter Summary ---
Author Organization [facility] Address 399 [facility] [address] [place] [address] Phone Care Team Providers Care Electrophysiology Tech Name Role Phone Richard Castro MD Primary Care Provider Encounter Details Date Type Department Care Team (Late st Contact Info) Description 12/12/2020 Procedure Pass [facility] [address] [place] [address] Social History Tobacco Use Types Packs/Day Years [...] Description 09/13/2025 10:00 AM EST Office Visit [facility] [address] [place] [address] 3rd Floor, [address] [place] [address] Roxy Burnette DNP 22 [facility], [address] [place] [address] documented as of this encounter Visit Diagnoses Not on filedocumented in this encounter Care Teams Electrophysiology Tech Relationship Specialty Start Date End Date Richard Castro MD NPI: [id number] [place] [address] [place] [address] PCP - General 06/02/17 documented as of this encounter Additional Source Comments The information contained in this document represents components of the legal health record. It is not the complete legal health record.[facility]
--- OUTSIDE RECORDS SUMMARY | 2025-07-20 09:58 | XMS_ITS | Encounter Summary ---
Author Organization [facility] Address [address] [place] [address] Care Team Providers Care Financial Administration Officer Name Role Phone Richard Castro MD Primary Care Provider Encounter Details Date Type Department Care Team (Late st Contact Info) Description 07/19/[address] [facility] - Main Lab 299 [facility] [place] [address] Nikolay Marcano, TAY [address] [place] [address] Gross hematuria Social History Tobacco Use Types Packs/Day Years Used Date Smoking Tobacco: Never Assessed Sex and Gender Information Value Date Recorded Sex Assigned at Not on file Legal Sex Male 2:29 AM EST Gender Identity Not on file Sexual Orientation Not on file documented as of this encounter Plan of Treatment Pending Results Name Type Priority Associated Diagnoses Date /Time Culture urine Microbiology Routine Gross hematuria 07/19/2025 1:15 PM EST documented as of this encounter Visit Diagnoses Diagnosis Gross hematuria documented in this encounter Care Teams Financial Administration Officer Relationship Specialty Start Date End Date Richard Castro MD [address] [place] [address] [address] [place] [address] PCP - General Internal Medicine 07/19/25 documented as of this encounter
[2025-07-20 11:21] LABS: Alanine Aminotransferase 42 U/L (0-40); Albumin Level 3.9 g/dL (3.5-5.0); Alkaline Phosphatase 107 U/L (39-117); Aspartate Amino Transferase 31 U/L (5-37); Total Protein 6.5 g/dL (6.5-8.0)
== END 2025-07-20 09:55 | disposition home or self-care (01) ==
LOC: HO.LAB 09:54
PROVIDERS: PCP Internal Medicine; Visit Provider Physician Assistant
DX: M00.9 Pyogenic arthritis, unspecified (principal)
CPT/HCPCS: 36415; 80076

== ENCOUNTER 2025-07-29 13:37 | Outpatient (REF) | payer MEDICARE, SELFPAY ==
[2025-07-29 14:26] LABS: MANUAL DIFF FLAG NO
[2025-07-29 14:57] LABS: White Blood Count 8.0 X10*3/uL (4.8-10.8)
[2025-07-29 14:58] LABS: Hematocrit 23.6 % (42.0-52.0); Hemoglobin 7.8 g/dl (14.0-18.0); Imm Gran Abs Auto 0.03 X10*3/uL (0.00-0.03); Imm Gran Pct Auto 0.4 % (0.0-0.4); Lymphocytes Absolute Auto 1.7 X10*3/uL (1.2-4.9); Mean Corpuscular HGB Conc 33.1 g/dl (31.0-36.0); Mean Corpuscular Hemoglobin 29.2 pg (27.0-33.0); Mean Corpuscular Volume 88.4 fL (80.0-98.0); NRBC Abs Auto 0.000 X10*3/uL (0.0-0.012); NRBC Pct Auto 0.0 /100WBC (0.0-0.2); Platelet Count 210 X10*3/uL (160-400); Red Blood Count 2.67 X10*6/uL (4.60-5.80)
[2025-07-29 15:35] LABS: Alanine Aminotransferase 37 U/L (0-40); Albumin Level 4.0 g/dL (3.5-5.0); Alkaline Phosphatase 112 U/L (39-117); Anion Gap 13 (12-20); Aspartate Amino Transferase 36 U/L (5-37); Blood Urea Nitrogen 23 mg/dL (9-16); Calcium 8.8 mg/dL (8.4-10.2); Carbon Dioxide 24 mmol/L (22-29); Chloride 105 mmol/L (96-108); Estimated Glomerular Filt Rate > 60; Potassium 4.1 mmol/L (3.3-5.1); Sodium 138 mmol/L (135-145); Total Protein 6.6 g/dL (6.5-8.0)
== END 2025-07-29 13:38 | disposition home or self-care (01) ==
LOC: HO.LAB 13:37
PROVIDERS: PCP Internal Medicine; Visit Provider Orthopaedic Surgery
DX: T84.59XA Infection and inflammatory reaction due to other internal joint prosthesis, initial encounter (principal); M00.9 Pyogenic arthritis, unspecified; Z96.611 Presence of right artificial shoulder joint
CPT/HCPCS: 36415; 80053; 85025; 85652; 86140; 99212

== ENCOUNTER 2025-07-29 13:37 | Outpatient (AMB) | payer MEDICARE, SELFPAY ==
--- OUTSIDE RECORDS SUMMARY | 2024-07-03 03:30 | XMS_ITS ---
Author Organization Richard Castro MD Address [address] [place], [place] [id number] Care Team Providers Care Accounts Payable Administrator Name Role Phone Richard Castro Primary Care Provider [phone] Results Component Value Reference Range Notes Complete Blood Count Auto Di ff Reviewed date:07/03/2024 08:00:30 PM Interpretation: Performing Lab:[facility], [address] [place] [phone] Notes/Report: White Blood Count 7.5 4.8-10.8 X10*3/uL [...] NRBC Abs Auto 0.000 0.0-0.012 X10*3/uL Comprehensive [place]. Panel Fa st Reviewed date:07/03/2024 08:16:51 PM Interpretation: Performing Lab:[facility], [address] [place] [phone] Notes/Report: Sodium 138 135-145 mmol/L Potassium 4.1 [...] Panel Reviewed date:07/03/2024 08:01:49 PM Interpretation: Performing Lab:[facility], [address] [place] [phone] Notes/Report: Triglycerides 98 <150 mg/dL Desirable Triglyceride: [...] date:07/17/2024 04:52:07 PM Interpretation:see back 07-17-2024 Performing Lab:[facility], [address] [place] [phone] Notes/Report: PSA,Total (Free>4and<10) 5.94 0.00-4.00 ng/mL PSA methodology: Burgess Alinity i Chemiluminescent Microparticle Immunoassay (CMIA) UA ClnCatch+Micro w/rflx Cul t Reviewed date:07/03/2024 08:03:57 PM Interpretation: Performing Lab:[facility], [address] [place] [phone] Notes/Report: Urine, Clean Catch Color Urine Yellow Appearance Urine Clear PH 5.5 5.0-9.0 Glucose Urine UA Negative Negative mg/dL Urine Blood Negative Negative Specific [place] - Urine 1.015 1.005-1.025 Urine Protein Negative [...] Date Provider Diagnosis Richard Castro MD [address] [place], [place] [phone] 07/03/2024 Richard Castro Elevated PSA R97.20 ; Encounter for immunization Z23 and Pure hypercholesterolemia E78.00 Assessments Encounter Date Diagnosis (ICD Code) Assessment Notes Treatment Notes Treatment Clinical Notes Section Notes 07/03/2024 Elevated PSA (ICD-10 - R97.20) 07/03/2024 Encounter for immunization (ICD-10 - Z23) 07/03/2024 Pure hypercholesterolemia (ICD-10 - E78.00) Plan Of Treatment Next Appt Details Provider Name:Richard Chatman ier, 08/26/2025 01:45:00 PM, [address] [place] [address], [address], [phone], Provider Name:Richard Chatman ier, 07/07/2026 07:15:00 AM, [address] [place] [address], [address], [phone], Provider Name:Richard Chatman ier, 07/18/2026 01:00:00 PM, [address] [place] [address], [address], [phone], Progress Notes * Joselito HURD ADOB:[birth year] (75 yo M)Acc No.[id number]:07/03/2024 Progress Note Patient: Jose MESSERREE Joselito Red Provider: Del Castro MD :1950 A ge:74 Y S ex:Male Date:07/03/2024 Address:[address] [place] [address] Subjective: * Chief Complaints: * 1 . [...] - 07/03/2024 08:30 AM) L AB: Comprehensive [place]. Panel Fast (Collection Date & Time - [...] FLU VAC NO FEE SCHED SAME DAY, [address] VENIPUNCT, ROUTINE* * * The named appointment provid er may or may not be the originator of this progress note, and it is not deemed complete until electronically signed by the appointment provider. Sign off status: Pending * Provider: Del Castro MD Date: 09/02/2023 Generated for Per deleon/Amandeep/Maninder on: 1 09/29/2024 07:53 PM EST
--- OUTSIDE RECORDS SUMMARY | 2024-07-17 08:30 | XMS_ITS ---
Author Organization Richard Castro MD Address [address] [place] [phone] Care Team Providers Care Sensor Specialist Name Role Phone Richard Castro Primary [...] Date Provider Diagnosis Richard Castro MD [address] [place] [address] [address] [place], [place] [phone] 07/17/2024 Richard Castro Essential tremor G25 .0 [...] or maybe wait/ get last note from [facility] 07/17/2024 Colon cancer screeni ng (ICD-10 [...] or maybe wait/ get last note from [facility] Colon cancer screening guaiac negative Depression screening negative screen Next Appt Details Follow Up: 1 Year, Reason: Provider Name:Richard escamilla, 08/26/2025 01:45:00 PM, [address] [place] [address], [address] [place] [address], [phone], Provider Name:Richard escamilla, 07/07/2026 07:15:00 AM, [address] [place] [address], [address], [phone], Provider Name:Richard escamilla, 07/18/2026 01:00:00 PM, [address] [place] [address], [address], [phone], Progress Notes * Joselito HURD ADOB:[birth year] (74 yo M)Acc No.[id number]:07/17/2024 Patient: Joselito Garcia Provider: Del Castro MD :1950 A ge:74 Y S ex:Male Date:07/17/2024 Address:[address] [place] [address] Subjective: * Chief Complaints: * R eview [...] 01-23-24. * P ast Orders: L ab:Comprehensive [place]. Panel Fast (Order Date - 07/03/2024) (Collection [...] mg/dL Urine Blood Negative Negative - Specific [place] - Urine 1.015 1.005-1.025 - Urine Protein [...] or maybe wait/ get last note from [facility] 3. C olon cancer screening L AB: Occult Blood, Stool, Guaiac N egative Value Reference Range O ccult Blood, Stool, Guaiac Neg Notes: guaiac negative??4.?Depression screening? Notes: negative screen?? * Procedure Codes: 8 2270 TEST FOR BLOOD, FECES * Follow Up: 1 Year * * Sign off status: Completed true * Provider: Del Castro MD Date: 09/17/2023 Generated for Per deleon/Amandeep/Malindaitting on: 09/29/2024 07:51 PM EST History and Physical Notes * [...]
--- OUTSIDE RECORDS SUMMARY | 2024-12-24 06:00 | XMS_ITS ---
Author Organization Richard Castro MD Address [address] [place], [place] [phone] Care Team Providers Care Supervisor Shop Name Role Phone Richard Castro Primary Care Provider Allergies No Known Allergies Results Component Value Reference Range Notes Complete Blood Count Auto Di ff Reviewed date:12/24/2024 05:16:55 PM Interpretation: Performing Lab:[facility], [address] [place] [phone] Notes/Report: White Blood Count 8.2 4.8-10.8 X10*3/uL [...] Panel Reviewed date:12/24/2024 05:16:08 PM Interpretation: Performing Lab:[facility], [address] [place] [phone] Notes/Report: Sodium 137 135-145 mmol/L Potassium 4.2 [...] 02-12-25 needs CBC BMP EKG going to Pot Puller 01-01-25 to be cleared, Patientfound a mass [...] Date Provider Diagnosis Richard Castro MD [address] [place] [address] [address] [place], [place] [phone] 12/24/2024 Richard Castro Mass in neck R22.1 ; Right shoulder pain, unspecified chronicity M25.511 and Preop examination Z01.818 Assessments Encounter Date Diagnosis (ICD Code) Assessment Notes Treatment Notes Treatment Clinical Notes Section Notes 12/24/2024 Mass in neck (ICD-10 - R22.1) THE ORDER WAS FAXED TO [facility], pending diagnsotic testing 12/24/2024 Right shoulder pain, unspecified chronicity (ICD-10 - M25.511) 12/24/2024 Preop examination (ICD-10 - Z01.818) at this point i don't find anything medically to prevent his shoulder surgery if cleared by his employee relations specialist Plan Of Treatment Treatment Notes Assessment Notes Mass in neck THE ORDER WAS FAXED TO [facility], pending diagnsotic testing Preop examination at this point i don' t find anything medically to prevent his shoulder surgery if cleared by his employee relations specialist Pending Test Test Name Order Date US soft tiss head and/or neck 12/24/2024 Next Appt Details Follow Up: after us, Reason: Provider Name:Richard Garcia Lurdes escamilla, 08/26/2025 01:45:00 PM, [address] [place] [address], [address] [place] [address], [phone], Provider Name:Richard Garcia Lurdes escamilla, 07/07/2026 07:15:00 AM, [address] [place] [address], Suite [facility], [place], [place], [phone], Provider Name:Richard Garcia Lurdes escamilla, 07/18/2026 01:00:00 PM, [address] [place] [address], [address] [place] [address], [phone], Progress Notes * Joselito HURD ADOB:[birth year] (74 yo M)Acc No.[id number]:12/24/2024 Patient: Jose Joselito AKERS Provider: Del Castro MD :1950 A ge:74 Y S ex:Male Date:12/24/2024 Address:[address] [place], [place] [phone] Subjective: * Chief Complaints: * r shoulder DR Thomas 02-12-25 needs CBC BMP EKG going to Pot Puller 01-01-25 to be clearedPatient found a mass [...] his right side. went to Urgent on [address] H [address] you had two or [...] his shoulder surgery if cleared by his employee relations specialist * Procedure Codes: 3 6415 VENIPUNCT, ROUTINE* * Follow Up: a fter us * * Sign off status: Completed true * Provider: Del Castro MD Date: 0 12/24/2024 Generated for Per deleon/Amandeep/Malindaitting on: 1 09/29/2024 07:53 PM EST History and Physical Notes * [...] his right side. went to Urgent on [address]. Have you had two or more [...]
--- OUTSIDE RECORDS SUMMARY | 2025-01-15 04:25 | XMS_ITS ---
Author Organization Richard Castro MD Address [address] [place] [phone] Care Team Providers Care Manpower Development Specialist Manager Name Role Phone Richard Castro Primary Care Provider [phone] REASON FOR VISIT FYI US neck cancelled Encounters Encounter Location Date Provider Diagnosis Richard Castro MD 10 [facility] [address] [place] [phone] 01/15/2025 Richard Castro Plan Of Treatment Next Appt Details Provider Name:Richard escamilla, 08/26/2025 01:45:00 PM, [address] [place] [address], [address] [place] [address], [phone], Provider Name:Richard escamilla, 07/07/2026 07:15:00 AM, [address] [place] [address], Suite [facility], [place], [place], [phone], Provider Name:Richard Chatman ier, 07/18/2026 01:00:00 PM, [address], [address], [place], [phone], Progress Notes * Joselito HURD ADOB:[birth year] (74 yo M)Acc No.[id number]:01/15/2025 Patient: Joselito HANNA :1950 A ge:74 Y S ex:Male Address:[address] [place] [id number] * true * Date: Generated for Per deleon/Amandeep/Malindaitting on: 09/29/2024 07:51 PM EST
--- OUTSIDE RECORDS SUMMARY | 2025-02-28 08:57 | XMS_ITS ---
Author Organization Richard Castro MD Address [address] [place] [phone] Care Team Providers Care Manager Intermediate Name Role Phone Richard Castro Primary Care Provider REASON FOR VISIT discharge Encounters Encounter Location Date Provider Diagnosis Richard Castro MD 10 [facility] [address] [place] [address] [phone] 02/28/2025 Richard Castro Plan Of Treatment Next Appt Details Provider Name:Richard escamilla, 08/26/2025 01:45:00 PM, [address] [place] [address], [address], [phone], Provider Name:Richard escamilla, 07/07/2026 07:15:00 AM, [address] [place] [address], [address], [phone], Provider Name:Richard Chatman ier, 07/18/2026 01:00:00 PM, [address], [address], [place], [place], [phone], Progress Notes * Joselito HURD ADOB:[birth year] (75 yo M)Acc No.[id number]:02/28/2025 Patient: Joselito HANNA :1950 A ge:75 Y S ex:Male Address:[address] [place] [id number] * true * Date: Generated for Per deleon/Amandeep/Kendricksmitting on: 09/29/2024 07:50 PM EST
--- OUTSIDE RECORDS SUMMARY | 2025-07-05 02:30 | XMS_ITS ---
Author Organization Richard Castro MD Address [address] [place], [place] [phone] Care Team Providers Care Convertible Sofa Bedspring Tester Name Role Phone Richard Castro Primary Care Provider Results Component Value Reference Range Notes Complete Blood Count Auto Di ff Reviewed date:07/05/2025 12:57:53 PM Interpretation: Performing Lab:[facility], [address] [place] [phone] Notes/Report: White Blood Count 7.2 4.8-10.8 X10*3/uL [...] NRBC Abs Auto 0.000 0.0-0.012 X10*3/uL Comprehensive [place]. Panel Fa st Reviewed date:07/05/2025 04:22:31 PM Interpretation: Performing Lab:[facility], [address] [place] [phone] Notes/Report: Sodium 139 135-145 mmol/L Potassium 4.1 [...] Panel Reviewed date:07/05/2025 12:57:32 PM Interpretation: Performing Lab:[address] [address] Notes/Report: Triglycerides 61 <150 mg/dL Desirable Triglyceride: [...] (Free>4and<10) Reviewed date:07/05/2025 12:56:55 PM Interpretation: Performing Lab:[address] [phone] Notes/Report: PSA,Total (Free>4and<10) 6.52 0.00-4.00 ng/mL PSA methodology: Burgess Alinity i Chemiluminescent Microparticle Immunoassay (CMIA) UA ClnCatch+Micro w/rflx Cul t Reviewed date:07/05/2025 04:23:00 PM Interpretation: Performing Lab:[address] [address] Notes/Report: Urine, Clean Catch Color Urine Yellow Appearance Urine Clear PH 5.5 5.0-9.0 Glucose Urine UA Negative Negative mg/dL Urine Blood Small (1+) Negative Specific [place] - Urine 1.020 1.005-1.025 Urine Protein Negative [...] Location Date Provider Diagnosis Richard Castro MD [address] [place] [phone] 07/05/2025 Richard Castro Elevated PSA R97.20 ; [...] Details Provider Name:Richard escamilla, 08/26/2025 01:45:00 PM, [address] [place] [address], [address], [phone], Provider Name:Richard escamilla, 07/07/2026 07:15:00 AM, [address] [place] [address], [phone], Provider Name:Richard escamilla, 07/18/2026 01:00:00 PM, [address] [place] [address], [phone], Progress Notes * Joselito HURD ADOB:[birth year] (75 yo M)Acc No.[id number]:07/05/2025 Progress Note Patient: Joselito HANNA Provider: Del Castro MD :1950 A ge:75 Y S ex:Male Date:07/05/2025 Address:[address] [place], [place] [address] Subjective: * Chief Complaints: * 1 . [...] - 07/05/2025 07:30 AM) L AB: Comprehensive [place]. Panel Fast (Collection Date & Time - [...] * Procedure Codes: 3 6415 VENIPUNCT, ROUTINE*, 44967 FLU VACCINE NO PRESERV 3 & >, G0008 ADMN FLU VAC NO FEE SCHED SAME DAY * * The named appointment provid er may or may not be the originator of this progress note, and it is not deemed complete until electronically signed by the appointment provider. Sign off status: Pending * Provider: Del Castro MD Date: 09/04/2024 Generated for Per deleon/Amandeep/Kendricksmitting on: 09/29/2024 07:53 PM EST
--- OUTSIDE RECORDS SUMMARY | 2025-07-18 08:00 | XMS_ITS ---
Author Organization Richard Castro MD Address [address] [place], [place] [id number] Care Team Providers Care Willow Worker Name Role Phone Richard Castro Primary Care Provider Allergies No Known Allergies Reason For Referral Reason HEMATURIA NEEDS A URGENT APPT Diagnosis 1 Hematuria (R31.9) Referral Organization Richard Castro MD Referring Provider First Name Richard Referring Provider Last Name Gloria Referring Provider Speciality Internal M edicine Referred Provider Nathaniel Gonsalves Referred Provider Specialty Urology General Notes Ana Broussard 1 09/18/2024 01:43:54 PM >REFERRAL INFO FAXED Referral Priority Routine Referral Appointment Date 07/19/2025 REASON FOR VISIT comp visit Medications Medication SIG (Take, Route, Frequency, Duration) [...] a day for 10 days 10/07/2016 Not-Taking Tylenol Extra Strength 500 MG 3 [...] capsule Orally O nce a day Active Xarelto 20 MG 1 tablet with food Orally Once a day Active Linezolid 600 MG 1 tablet Orally ever y 12 hrs Active Cartia XT 120 MG 1 capsule Orally Onc e a day for 30 day(s) Active Social History Tobacco Use: Social History Observation [...] Problem Status W/U Status Risk Notes Problem Melanoma of skin (21275291) Melanoma of skin (C43.9) Active confirmed Vital Signs Blood pressure systolic 92 mm Hg 07/18/20 25 Blood pressure diastolic 58 mm Hg 025 Height 70.50 in 07/18/2025 Weight 201 lbs 07/18/2025 BMI 28.43 kg/m2 07/18/2025 Encounters Encounter Location Date Provider Diagnosis Richard Castro MD [address] [place], [place] [phone] 07/18/2025 Richard Castro Hematuria R31.9 ; El evated PSA R97.20 ; Colon cancer screening Z12.11 ; Paroxysmal atrial fibrillation I48.0 ; Melanoma of skin C43.9 ; Pure hypercholesterolemia E78.00 and Depression screening Z13.31 Assessments Encounter Date Diagnosis (ICD Code) Assessment Notes Treatment Notes Treatment Clinical Notes Section Notes 07/18/2025 Hematuria (ICD-10 - R31.9) need to see his urology urgently dr gonsalves 07/18/2025 Elevated PSA (ICD-10 - R97.20) followed by urology 07/18/2025 Colon cancer screeni ng (ICD-10 - Z12.11) due for colonoscopy this year but is holding off due to all the surgery coming up 07/18/2025 Paroxysmal atrial fibrillation (ICD-10 - I48.0) not having any problems put on xarelto due to his age 1207/18/2025 Melanoma of skin (ICD-10 - C43.9) going to ne derm to have idt removed some more 07/18/2025 Pure hypercholesterolemia (ICD-10 - E78.00) 07/18/2025 Depression screening (ICD-10 - Z13.31) Plan Of Treatment Medication Medication Name Sig Start Date Stop Date Notes Tamsulosin HCl 0.4 MG 1 capsule Orally Once a day Xarelto 20 MG 1 tablet with food Orally Once a day Treatment Notes Assessment Notes Hematuria need to see his urol ogy urgently dr gonsalves Elevated PSA followed by urology Colon cancer screening due for colonosco py this year but is holding off due to all the surgery coming up Paroxysmal atrial fibrillation not havin g any problems put on xarelto due to his age Melanoma of skin going to ne derm to have idt removed some more Referrals Referral Date Details 07/18/2025 07/18/2025, HEMATURI A NEEDS A URGENT APPT, Nathaniel oGnsalves Next Appt Details Follow Up: 6 Weeks, Reason: Provider Name:Richard escamilla, 08/26/2025 01:45:00 PM, [address], [address], [place], [place], [phone], Provider Name:Richard Chatman ier, 07/07/2026 07:15:00 AM, [address] [facility], [address], [place], [phone], Provider Name:Richard Chatman ier, 07/18/2026 01:00:00 PM, [address] [facility], [address], [place], [phone], Progress Notes * Joselito HURD ADOB:[birth year] (75 yo M)Acc No.[id number]:07/18/2025 Patient: Joselito HANNA Provider: Del Castro MD :1950 A ge:75 Y S ex:Male Date:07/18/2025 Address:[address] [place], [place] [phone] Subjective: * Chief Complaints: * C omp visit * HPI: D epression Screening: . PHQ-9 L ittle interest or pleasure in [...] patient have a cognition impairment? N o. S NOAH Questions: SDOH Questions I n the past year have you been worried about losing housing? N o, I n the past year have you or any family members you live with been unable to get any of the following when it was really needed? Check all that apply: N one. F all Risk: History H ave you had any falls with injury in the past year? N o, H ave you had two or more falls in the past year? N o. S ymptom(s): patient is a 75 yo male here for visit with review of recent labs and follow up of chronci issues h ad shoulder replacement and was doing great. 12 weeks later started to get a big red mass in shoulder/ PA tried to get fluid out unsuccessfully.. dr patten tapped it and it was an infection. had been leaking fat. taking linzoid. now urine is bloody. legs are burning and he is tired. * ROS: G eneral/Constitutional: Change in appetite d enies. C hills d enies. F ever d enies. O phthalmologic: Blurred vision d enies. D ischarge d enies. P ain d enies. E NT: Decreased hearing d enies. S ore throat d enies.?Swollen glands d enies. E ndocrine: Cold intolerance [...] F requent urination d enies. M usculoskeletal: Painful joints d enies. W eakness d enies. ? S kin: Dry skin d enies. I [...] frequency:, 1-2 cups per day. Children: yes. Community involvements: no. Exercise: yes, Eliptical 4 times a week for 20 minutes. Home smoke detector use: yes. Housing: owning. Living with: spouse. Marital status: . Occupation: Retired. Pets: none. Travel outside of the [place]: no. * Medications: T akingLinezolid 600 MG Tablet 1 tablet Orally every 12 hrs Xarelto 20 MG Tablet 1 tablet with food Orally Once a day Cartia XT 120 MG Capsule Extended Release [...] ONE CAPSULE BY MOUTH ONCE DAILY Taking Linezolid 600 MG Tablet 1 tablet Orally every 12 hrs Taking Xarelto 20 MG Tablet 1 tablet with food Orally Once a day Taking Cartia XT 120 MG Capsule Extended [...] TAKE ONE CAPSULE BY MOUTH ONCE DAILY Not- Taking/PRNValtrex 1 GM Tablet 1 tablet Orally 3 [...] Objective: * Vitals: H t: 70.50, Wt: 201, BMI:28.43, BP:92/58, Wt-k.17. * Examination: G eneral Examination: GENERAL APPEARANCE: [...] no external hemorrhoids, no masses palpable, prostate slightly irregular chronically, stool guaiac negative. MALE GENITOURINARY: c ircumcised, no testicular mass, testes descended bilaterally. EXTREMITIES: n o clubbing, cyanosis, or edema. NEUROLOGIC: n onfocal, motor strength normal upper and lower extremities, sensory exam intact. Assessment: * Assessment: 1. H ematuria - R31.9 (Primary) 2 . E levated PSA - R97.20 3 . C olon cancer screening - Z12.11 4 . P aroxysmal atrial fibrillation - I48.0 5 . M elanoma of skin - C43.9 6 . P ure hypercholesterolemia - E78.00 7 . D epression screening - Z13.31 Plan: * Treatment: 2. E levated PSA Continue Tamsulosin HCl Capsule, 0.4 MG, 1 capsule, Orally, Once a day. Notes: followed by urology 3. C olon cancer screening Notes: due for colonoscopy this year but is holding off due to all the surgery coming up 4. P aroxysmal atrial fibrillation Continue Xarelto Tablet, 20 MG, 1 tablet with food, Orally, Once a day. Notes: not having any problems put on xarelto due to his age 5. M elanoma of skin Notes: going to ne derm to have idt removed some more * Procedure Codes: * Preventive Medicine: Counseling: C are goal follow-up plan: C ounseling for abnormal BMI provided?Yes, A seamus Normal BMI Follow-up G iving encouragement to exercise. * Follow Up: 6 Weeks * * Sign off status: Completed true * Provider: Del Castro MD Date: 09/18/2024 Generated for Per deleon/Amandeep/Malindaitting on: 09/29/2024 07:51 PM EST History and Physical Notes * HPI (History of Present Illness) Category Sub-Category Detail Notes Category Not es Symptom(s) patient is a 75 yo male here for visit with review of recent labs and follow up of chronci issues had shoulder replacement and was doing great. 12 weeks later started to get a big red mass in shoulder/ PA tried to get fluid out unsuccessfully.. dr patten tapped it and it was an infection. had been leaking fat. taking linzoid. now urine is bloody. legs are burning and he is tired Depression Screening PHQ-9 Little inte rest or [...] clubbing, cyanosi s, or edema MALE GENITOURINARY: circumcised, no test icular mass, testes descended bilaterally RECTAL EXAM: normal tone, no exte rnal hemorrhoids, no masses palpable, prostate slightly irregular chronically, stool guaiac negative ORAL CAVITY: mucosa moist Consultation Request Notes Referral Date Referring Provider Referred Provider Not es 07/18/2025 Richard Castro Michael HEMATUR [place] NEEDS A URGENT APPT
--- NOTE | 2025-07-29 13:41 | A.OFFVIS_ITS ---
Intake Visit Reasons: PO - RT rTSA I&D 06/19/25 - Wound Check Intake Note: Joselito is a 75 year old Left Hand dominant male who presents today for a post operative wound check about 3 weeks s/p Right Shoulder I&D 06/19/25 & about 5 Months s/p Right Reverse TSA 02/26/25. A referral was sent to Dr. Nichols as VITALY, he was instructed to continue taking Linezolid and performing Dry Dressing changes. Patient reports that he has completed the dressing changes and the wound has closed. He reports that he is having some increased soreness of the shoulder that was not present previously. He is having significant fatigue that is not normal for him. Allergies No Known Allergies (No Known Allergies*) Allergy (Verified 07/15/25 10:24) HPI HPI PO - RT rTSA I&D 06/19/25 - Wound Check: Details: Joselito is a 75 year old Left Hand dominant male who presents today for a post operative wound check about 3 weeks s/p Right Shoulder I&D 06/19/25 & about 5 Months s/p Right Reverse TSA 02/26/25. A referral was sent to Dr. Nichols as VITALY, he was instructed to continue taking Linezolid and performing Dry Dressing changes. Patient reports that he has completed the dressing changes and the wound has closed. He reports that he is having some increased soreness of the shoulder that was not present previously. He is having significant fatigue that is not normal for him. [facility] Medical History Wears hearing aid in both ears GRAND [place]VERSE (hard of hearing) History of cardioversion BPH (benign prostatic hyperplasia) Hx MRSA infection (07/2018) Tremor Non-Hodgkin lymphoma Afib Hydronephrosis with renal and ureteral calculous obstruction (2019) Acute UTI Sepsis Calculus, renal Hydronephrosis Surgical History S/P right rotator cuff repair Hx of colonoscopy Hx of repair of right rotator cuff (~2014) History of left inguinal hernia repair (~2020) History of right inguinal hernia repair (08/28/18) History of bilateral inguinal hernia repair (06/28/17) History of arthroscopy of left knee Family History Father Throat cancer Mother Melanoma Leukemia Social History Household Members: Spouse and Children Housing: House Are you a primary healthcare risk control consultant to a significant other at home: No Do you presently have visiting nurse or other home services: No 75 years or older and lives alone: No Comment: hematoma right thigh, resolved no fracture with 12/2024 fall, no head strike Patient Tobacco Use Status: Former Tobacco user Tobacco use type: Cigarette service: Yes Current occupational status: retired Physical Exam Exam Exam: Incision clean dry and intact. There is firm prominence of the distal half of the incision which is not tender. This is residual from the infection. 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 He has got some fatigue which may be caused from antibiotics and I will repeat his liver function tests. I have made a referral for [facility]. Contact him if his labs are abnormal. I would like to see him back in 3 weeks. Orders: Orders Comprehensive Met. 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
--- OUTSIDE RECORDS SUMMARY | 2025-07-29 19:51 | XMS_ITS | Encounter Summary ---
Author Organization [facility] Address 399 [facility] [address] [place] [address] Phone Care Team Providers Care Clinic Charge Nurse Name Role Phone Richard Castro MD Primary Care Provider Encounter Details Date Type Department Care Team (Latest Contact Info) Description 11/15/2017 Ancillary Orders [facility] [address] 3rd Floor, [address] [place] [address] Av Orozco MD [address] [place] [address] Paroxysmal atrial fibrillation Social History Tobacco Use [...] Description 09/13/2025 10:00 AM EST Office Visit [facility] [address] 3rd Floor, [address] [place] [address] Roxy Burnette DNP [address] [place] [address], [address] [address] documented as of this encounter Results * TTE COMPREHENSIVE (11/17/2017 10:06 AM EDT) Anatomical Region Laterality Modality Heart Ultrasound us Av Orozco MD CV ECHO ORDERABLES Final Result documented in this encounter Visit Diagnoses Diagnosis Paroxysmal atrial fibrillation Atrial fibrillation documented in this encounter Care Teams Clinic Charge Nurse Relationship Specialty Start Date End Date Richard Castro MD [address] [place] [address] Dr CHASE [address] [place] [address] PCP - General 06/02/17 documented as of this encounter Additional Source Comments The information contained in this document represents components of the legal health record. It is not the complete legal health record.[facility]
--- OUTSIDE RECORDS SUMMARY | 2025-07-29 19:51 | XMS_ITS | Encounter Summary ---
Author Organization [facility] Address 399 [facility] [address] [place] [address] Phone Care Team Providers Care Tubing Assembler Name Role Phone Richard Castro MD Primary Care Provider Encounter Details Date Type Department Care Team (Latest Contact Info) Description 06/04/2017 Ancillary Orders [facility] [address] 3rd Floor, [address] [place] [address] Av Orozco MD [address] [place] [address] Diagnosis unknown Social History Tobacco Use Types [...] Description 09/13/2025 10:00 AM EST Office Visit [facility] [address] 3rd Floor, [address] [place] [address] Roxy Burnette DNP [address] [place] [address], [address] [address] documented as of this encounter Visit Diagnoses Diagnosis Diagnosis unknown documented in this encounter Care Teams Tubing Assembler Relationship Specialty Start Date End Date Richard Castro MD [address] [place] [address] [place] [address] PCP - General 06/02/17 documented as of this encounter Additional Source Comments The information contained in this document represents components of the legal health record. It is not the complete legal health record.[facility]
--- OUTSIDE RECORDS SUMMARY | 2025-07-29 19:51 | XMS_ITS | Encounter Summary ---
Author Organization [facility] Address [address] [place] [address] Care Team Providers Care Labor Mediator Name Role Phone Richard Castro MD Primary Care Provider Encounter Details Date Type Department Care Team (Late st Contact Info) Description 07/19/2025 Lab Requisition [facility] - Main Lab [address] [place] [address] Nikolay Marcano, TAY [address] [place] [address] Gross hematuria Social History Tobacco Use Types Packs/Day Years Used Date Smoking Tobacco: Never Assessed Sex and Gender Information Value Date Recorded Sex Assigned at Not on file Legal Sex Male 2:29 AM EST Gender Identity Not on file Sexual Orientation Not on file documented as of this encounter Plan of Treatment Not on file documented as of this encounter Procedures Procedure Name Priority Date/Time Associated Diagnosis Comments CULTURE URINE Routine 07/19/2025 1:15 PM EST Gross hematuria documented in this encounter Results * Culture urine (07/19/2025 1:15 PM EST) Culture, Urine No growth 07/20/2025 1:59 PM EST [facility] Urine Urine specimen obtained by clean catch procedure / Unknown 07/19/2025 1:15 PM EST 07/19/2025 6:23 PM EST us Nikolay [facility] MICROBIOLOGY - GENERAL VANESSA KULKARNI Final Result [facility] [address] [place] [address], documented in this encounter Visit Diagnoses Diagnosis Gross hematuria documented in this encounter Care Teams Labor Mediator Relationship Specialty Start Date End Date Richard Castro MD [address] [place] [address] [place] [address] PCP - General Internal Medicine 07/19/25 documented as of this encounter
--- OUTSIDE RECORDS SUMMARY | 2025-07-29 19:51 | XMS_ITS | Clinical Summary ---
Author Organization 299 [facility] Address [address] [place] [address] Phone Care Team Providers Care Associate Director Financial Aid Name Role Phone Richard Castro MD Primary Care Provider Encounters Date Type Department Care Team Description 07/25/2025 Lab Requisition [facility] [address] [place] [address] Nikolay Marcano PA Gross hematuria 07/19/2025 Lab Requisition [facility] [address] [place] [address] Nikolay Marcano PA Gross hematuria [...] on patient's age to complete this topic Procedures Procedure Name Priority Date/Time Associated Diagnosis Comments CULTURE URINE Routine 07/19/2025 1:15 PM EST Gross hematuria from Last 3 Months Results * Culture urine (07/19/2025 1:15 PM EST) Culture, Urine No growth 07/20/2025 1:59 PM EST [facility] Urine Urine specimen obtained by clean catch procedure / Unknown 07/19/2025 1:15 PM EST 07/19/2025 6:23 PM EST [facility] LAB MICROBIOLOGY - GENERAL VANESSA KULKARNI Final Result [facility] [address] [place] [address], from Last 3 Months Insurance MEDICARE [facility] Care Teams Associate Director Financial Aid Relationship Specialty Start Date End Date Richard Castro MD [address] [facility] [address] [place] [address] PCP - General Internal Medicine 07/19/25
--- OUTSIDE RECORDS SUMMARY | 2025-07-29 19:51 | XMS_ITS | Clinical Summary ---
Author Organization [facility] Address [address] [address] Phone Care Team Providers Care Business Machine Mechanic Name Role Phone Richard Castro MD [...] and now has another point to his [id number] score now making him by 2 which [...] Type Department Care Team Description 06/18/2025 Telephone [facility] [address] 3rd Floor, [address] [place] [address] Jeniffer Joseph DNP 05/17/2025 1:20 PM EDT Office Visit [facility] [address] 3rd Floor, [address] [place] [address] Dianelys Fonseca MD Paroxysmal atrial fibrillation (Primary Dx); Current use of senior care anticoagulation 05/13/2025 4:00 PM EDT Office Visit [facility] [address] 3[address] Floor, [address] [place] [address] Kyle Montanez MD Other chest pain (Primary [...] Description 09/13/2025 10:00 AM EST Office Visit [facility] [address] [place] [address] 3rd Floor, [address] [place] [address] Roxy Burnette DNP 22 [facility], [address] [address] Health Maintenance Due Date Last Done Comments [...] this topic Medical Devices Implanted Type Area Lead Worker Of Housekeeping And Laundry Device Identifier Shelf Expiration Date Model / Serial / Lot Mesh Mesh Pin Pin Right: Arm Procedures Procedure Name Priority Date/Time Associated Diagnosis Comments BASIC METABOLIC PANEL (BMP) Routine 09/10/2022 11:13 AM EST Persistent atrial fibrillation from Last 3 Months or Most Recently Relevant to Health Maintenance Results * (ABNORMAL) Basic metabolic panel (09/10/2022 11:13 AM EST) SODIUM 138 133 - 146 mmol/L [facility] CHLORIDE 102 96 - 108 mmol/L [facility] POTASSIUM 4.8 3.3 - 5.1 mmol/L [facility] CO2 27 21 - 35 mmol/L [facility] BUN 21(H) 6 - 19 mg/dL [facility] CREATININE 1.10 0.5 - 1.5 mg/dL [facility] GLUCOSE 93 70 - 99 mg/dL [facility] CALCIUM 9.2 8.4 - 10.3 mg/dL [facility] EGFR 71 >59 mL/min/1.7 3m2 [facility] Comment:Estimated glomerular filtration rate calculated using the CKD-EPI refit equation. ANION GAP 14 10 - 20 mmol/L [facility] Blood 09/10/2022 11:1 3 AM EST 09/10/2022 4:07 PM EST us Edenilson Stapleton MD LAB BLOOD BKR ORDERABLES Fin al Result [address] [address] from Last 3 Months or Most Recently Relevant to Health Maintenance Insurance [employer] MEDEX SUPPLEMENT MEDICARE PART A & B [employer] MEDEX SUPPLEMENT MEDICARE PART A & B [employer] MEDEX SUPPLEMENT MEDICARE PART A & B [employer]OSS MEDEX SUPPLEMENT MEDICARE PART A & B [employer] MEDEX SUPPLEMENT MEDICARE PART A & B [employer] MEDEX SUPPLEMENT MEDICARE PART A & [place] [address] [place] [address] MEDEX SUPPLEMENT MEDICARE PART A & B [employer]OSS MEDEX SUPPLEMENT MEDICARE PART A & B [place] MEDEX SUPPLEMENT MEDICARE PART A & B Care Teams Business Machine Mechanic Relationship Specialty Start Date End Date Richard Castro MD [address] [place] [address] [place] [address] PCP - General 06/02/17 Additional Source Comments The information contained in this document represents components of the legal health record. It is not the complete legal health record.[facility]
--- OUTSIDE RECORDS SUMMARY | 2025-07-29 19:51 | XMS_ITS | Encounter Summary ---
Author Organization [facility] Address [address] [place] [address] Care Team Providers Care Director Of Employer Services Name Role Phone Richard Castro MD Primary Care Provider Encounter Details Date Type Department Care Team (Late st Contact Info) Description 07/25/2025 Lab Requisition [facility] - Main Lab [address] [facility] [place] [address] Nikolay Marcano, TAY [address] [place] [address] Gross hematuria Social History Tobacco Use Types Packs/Day Years Used Date Smoking Tobacco: Never Assessed Sex and Gender Information Value Date Recorded Sex Assigned at Not on file Legal Sex Male 2:29 AM EST Gender Identity Not on file Sexual Orientation Not on file documented as of this encounter Plan of Treatment Pending Results Name Type Priority Associated Diagnoses Date /Time Non-gynecologic cytology Pathology and Cytology Routine Gross hematuria 07/19/2025 12:00 AM EST documented as of this encounter Visit Diagnoses Diagnosis Gross hematuria documented in this encounter Care Teams Director Of Employer Services Relationship Specialty Start Date End Date Richard Castro MD [address] [place] [address] Drive [address] [place] [address] PCP - General Internal Medicine 07/19/25 documented as of this encounter
--- OUTSIDE RECORDS SUMMARY | 2025-07-29 19:51 | XMS_ITS | Encounter Summary ---
Author Organization [facility] Address [address] [facility] [address] [place] [phone] Phone Care Team Providers Care De Icer Kit Assembler Name Role Phone Richard Castro MD Primary Care Provider Encounter Details Date Type Department Care Team (Late Contact Info) Description 08/26/2022 Procedure Pass [facility] [address] [place] [address] Social History Tobacco Use Types Packs/Day Years [...] Description 09/13/2025 10:00 AM EST Office Visit [facility] [address] [place] [address] 3rd Floor, [address] [place] [phone] Roxy Burnette DNP 22 [facility], [address] [address] documented as of this encounter Visit Diagnoses Not on filedocumented in this encounter Care Teams De Icer Kit Assembler Relationship Specialty Start Date End Date Richard Castro MD [address] [place] [address] [place] [address] PCP - General 06/02/17 documented as of this encounter Additional Source Comments The information contained in this document represents components of the legal health record. It is not the complete legal health record.[facility]
--- OUTSIDE RECORDS SUMMARY | 2025-07-29 19:54 | XMS_ITS | Patient Health Record ---
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 Problems Problem Type SNOMED Code ICD Code Onset Dates Problem Status W/U Status Risk Notes Problem Hemorrhoids (28470961) Hemorrhoids (455.6) Active confirmed Problem Colon cancer screening (663229280) Colon cancer screening (V76.51) Active confirmed Problem Feces contents abnormal (157229409) Abnormal findings in stool (792.1) Active confirmed Plan Of Treatment Future Test Test Name Order Date COLONOSCOPY 07/26/2014 Insurance Providers Payer Name Payer Address Payer Phone Subscriber Number Group Number Insured Name Patient Relationship to Insured Coverage Start Date Coverage End Date [facility] [address] [address] [place] [id number] ROOSEVELT SAMUELS Self - patient is the insured MEDICARE OF [place] [address] [facility] [place] [id number] ROOSEVELT SAMUELS Self - patient is the insured Medical (General) History Medical History History ICD Code lymphoma Atrial fibrillation mitral valve prolapse Surgical History Surgery Date(Month/Year) lymphectomy 1 node under arm 2010
--- OUTSIDE RECORDS SUMMARY | 2025-07-29 19:54 | XMS_ITS | Patient Health Record ---
Author Organization Richard Castro MD Address [address] [place], [place] [phone] Care Team Providers Care Store Clerk Name Role Phone Richard Castro Primary Care Provider [phone] Allergies No Known Allergies Results Component Value Reference Range Notes Complete Blood Count Auto Di ff Reviewed date:07/05/2025 12:57:53 PM Interpretation: Performing Lab:[facility], [address] [place] [phone] Notes/Report: White Blood Count 7.2 4.8-10.8 X10*3/uL [...] NRBC Abs Auto 0.000 0.0-0.012 X10*3/uL Comprehensive [place]. Panel Fa st Reviewed date:07/05/2025 04:22:31 PM Interpretation: Performing Lab:[facility], [address] [place] [phone] Notes/Report: Sodium 139 135-145 mmol/L Potassium 4.1 [...] Panel Reviewed date:07/05/2025 12:57:32 PM Interpretation: Performing Lab:[address] [address] Notes/Report: Triglycerides 61 <150 mg/dL Desirable Triglyceride: [...] (Free>4and<10) Reviewed date:07/05/2025 12:56:55 PM Interpretation: Performing Lab:[address] [address] Notes/Report: PSA,Total (Free>4and<10) 6.52 0.00-4.00 ng/mL PSA methodology: Burgess Alinity i Chemiluminescent Microparticle Immunoassay (CMIA) UA ClnCatch+Micro w/rflx Cul t Reviewed date:07/05/2025 04:23:00 PM Interpretation: Performing Lab:[address] [address] Notes/Report: Urine, Clean Catch Color Urine Yellow Appearance Urine Clear PH 5.5 5.0-9.0 Glucose Urine UA Negative Negative mg/dL Urine Blood Small (1+) Negative Specific [place] - Urine 1.020 1.005-1.025 Urine Protein Negative Neg-Trace mg/dL Urine Ketones Negative Negative mg/dL Nitrite Urine Negative Negative Leukocyte Esterase Urine Negative Negative RBC Urine 6-10 0-2 /HPF WBC Urine 0-5 0-5 /HPF Squamous Epithelial Cell Urine 0-2 0-2 /HPF Bacteria Urine None Seen None Seen Hyaline Casts Urine 0-2 0-2 /LPF Complete Blood Count Auto Di ff Reviewed date:12/24/2024 05:16:55 PM Interpretation: Performing Lab:[facility], [address] [place] [phone] Notes/Report: White Blood Count 8.2 4.8-10.8 X10*3/uL [...] Panel Reviewed date:12/24/2024 05:16:08 PM Interpretation: Performing Lab:[facility], [address] [place] [phone] Notes/Report: Sodium 137 135-145 mmol/L Potassium 4.2 [...] date:12/19/2024 05:35:49 PM Interpretation: Performing Lab: Notes/Report: [address] [address] [address] Scan Report Signed Patient: Joselito Hurd Sr MR#: [id number] : 1950 Acct:[id number] Age/Sex: 74 / M ADM Date: 12/17/24 Loc: HO.CT Attending Dr: Js Marquez PA-C Ordering Physician: Js Marquez PA-C Date of Service: 12/17/24 Procedure(s): CT shoulder RT wo IV con Accession Number(s): [id number] cc: Richard Castro MD; Js Marquez PA-C Report Number: [id number]: Total DLP = 283.00 mGy-cm CLINICAL HISTORY: [...] OV> 12/19/24913 DD/ 2 TD/TT: 12/19/24912 Manager Of Exhibitions And Collections: [place] [address] CT Scan Report Signed Patient: Flavia Hurd Sr MR#: [id number] : 1950 Acct:[id number] Age/Sex: 74 / M ADM Date: 12/17/24 Loc: HO.CT Attending Dr: Justino Marquez PA-C Ordering Physician: Js Marquez PA-C Date of Service: 12/17/24 Procedure(s): CT staci obrien RT wo IV con Accession Number(s): [id number] cc: Richard Castro MD; Js Marquez PA-C [...] signed by Gurdeep Reaves MD in OV> 12/19/2414 DD/ 2 TD/TT: 12/19/24912 Manager Of Exhibitions And Collections: MRSA Nasal Screen Reviewed date:01/29/2025 05:00:18 PM Interpretation: Performing Lab:[facility], [address] [place] [phone] Notes/Report: MRSA Nasal PCR NEGATIVE Negative SA Nasal PCR NEGATIVE Negative MRSA Interpretation SEE NOTE MRSA target DNA not detected; SA target DNA not detected. A MRSA NEGATIVE, SA NEGATIVE test result does not preclude MRSA or SA nasal colonization. Complete Blood Count Auto Di ff Reviewed date:02/21/2025 05:04:30 PM Interpretation: Performing Lab:[facility], [address] [place] [phone] Notes/Report: White Blood Count 5.4 4.8-10.8 X10*3/uL [...] Panel Reviewed date:02/21/2025 04:13:13 PM Interpretation: Performing Lab:[facility], [address] [place] [phone] Notes/Report: Sodium 138 135-145 mmol/L Potassium 4.5 [...] Screen Reviewed date:02/21/2025 04:00:33 PM Interpretation: Performing Lab:[facility], [address] [place] [phone] Notes/Report: Spec expiration changed by ARPITA on 02/21/25 Reason: PAT NURSING: Call Blood Bank (ext. [phone]) to band patient on admission. Type and Screen in effect until 2300 on 02/26/25 Witnessed by PORTERS Blood Type AP Antibody Screen NEGATIVE Hemoglobin and Hematocrit Reviewed date:02/26/2025 12:28:58 PM Interpretation: Performing Lab:[facility], [address] [place] [phone] Notes/Report: Hemoglobin 13.7 14.0-18.0 g/dl Hematocrit 40.8 42.0-52.0 % Pathology Reviewed date:02/28/2025 05:07:11 PM Interpretation: Performing Lab:[facility], [address] [place] [phone] Notes/Report: ------ Name: Joselito Hurd Sr Age/Sex: 75/M : 1950 Unit#: [id number] Attend Dr: Cilnt Thomas MD Re02/26/25 Status : [facility] Disch: ------ SPEC : [id number] RECD : 02/27/25 STATUS: EARNEST WALLER NUM: [id number] KRIST[place]: 02/26/251449 [facility] DR: Clint Thomas MD ENTERED: 02/27/25 52 [...] yet, brittle, tapia-yellow with yellow-pink bone marrow. 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 CEDS IHC S/NG Disclaimer NOTE: Unless otherwi se stated, all tissue is formalin-fixed and paraffin-embedded. Some or all of the immunohistochemical tests reported herein may have been developed and their performance characteristics determined by [facility]. They have not been cleared or appr saima by the U.S. Food and Drug Administration (FDA). However, the FDA has determined that such clearance or approval is not necessary. This laboratory is certified under the Clinical Laboratory Improvement Amendments of 1988 (CLIA) as qualified to perform high comp lexity clinical laboratory testing. Copies To: Richard Castro MD [facility] [address] [address] CONTINUED ON NEXT PAGE ------ Name: Joselito Hurd Sr Age/Sex: 75/M : 1950 Unit#: [id number] Attend Dr: Clint Thomas MD Re02/26/25 Status : [facility] Location: [facility] Disch: ------ SPEC : [id number] RECD : 02/27/25 STATUS: EARNEST WALLER NUM: [id number] KRISTINA: 02/26/25-[address] [facility] [address]: Clint Thomas MD ENTERED: 02/27/25- 53 SP TYPE: Surgical OTHR DR: Richard Castro MD ORDERED: Gross Micro L3, Decal Copies To: (Continued) Clint Thomas MD [facility] [address] [place] [address] [address] [place] [address] ------ Signed (signature on file) Leon Keene MD 02/28/25 1146 ------ END OF REPORT XR shoulder RT 1V Reviewed date:02/26/2025 05:10:31 PM Interpretation: Performing Lab: Notes/Report: [address] [address] XRay Report Signed Patient: Joselito Hurd Sr MR#: [id number] : 1950 Acct:[id number] Age/Sex: 75 / M ADM Date: 02/26/25 Loc: HO.S3 345-[address]: Clint Thomas MD Ordering Physician: Js Marquez PA-C Date of Service: 02/26/25 Procedure(s): XR shoulder RT 1V Accession Number(s): [id number] cc: Richard Castro MD; Js Marquez PA-C [...] 1702 DD/ 1539 TD/TT: 02/26/25 1642 Manager Of Exhibitions And Collections: [address] [address] XRay Report Signed Patient: Flavia Hurd Sr MR#: [id number] : 1950 Acct:[id number] Age/Sex: 75 / M ADM Date: 02/26/25 Loc: HO.S3 345-[address]: Clint ellison MD Ordering Physician: Js Marquez PA-C Date of Service: 02/26/25 Procedure(s): XR staci ulder RT 1V Accession Number(s): [id number] cc: Richard Castro MD; Js Marquez PA-C [...] 1702 DD/ 1539 TD/TT: 02/26/25 1642 Manager Of Exhibitions And Collections: Complete Blood Count Auto Di ff Reviewed date:02/27/2025 04:10:37 PM Interpretation: Performing Lab:[facility], [address] [place] [phone] Notes/Report: White Blood Count 11.9 4.8-10.8 X10*3/uL [...] g Reviewed date:02/27/2025 04:01:26 PM Interpretation: Performing Lab:[address] [phone] Notes/Report: Sodium 136 135-145 mmol/L Potassium 4.2 [...] stain Reviewed date:06/20/2025 05:05:21 PM Interpretation: Performing Lab:[address] [place] [address] Notes/Report: RIGHT SHOULDER PER R/O C.ACNES RT SHOULDER Gram stain Gram stain results: Gram stain 4+ polys Gram stain 4+ red blood cells Gram stain No organisms seen Routine Culture Reviewed date:06/20/2025 03:38:27 PM Interpretation: Performing Lab:[facility], [address] [place] [phone] Notes/Report: RIGHT SHOULDER PER R/O C.ACNES RT SHOULDER Routine Culture No growth after 2 days Anaerobic Culture Reviewed date:06/20/2025 03:38:01 PM Interpretation: Performing Lab:[facility], [address] [place] [phone] Notes/Report: RIGHT SHOULDER PER R/O C.ACNEVani RT SHOULDER O:CUTIAC Cutibacterium acnes Anaerobic Culture B-Lac Susc (reported) Anaerobic Culture Beta-lactamase not produced; suggests PEN/AMP susceptibility Anaerobic Culture Quant Org ID Anaerobic Culture 1+ Liver Panel Reviewed date:06/27/2025 04:46:56 PM Interpretation: Performing Lab:[facility], [address] [place] [phone] Notes/Report: Bilirubin Total 0.2 0.0-1.0 mg/dL Bilirubin Direct < 0.2 0.0-0.5 mg/dL Aspartate Amino Transferase 26 5-37 U/L Alanine Aminotransferase 30 0-40 U/L Total Protein 7.4 6.5-8.0 g/dL Albumin Level 4.0 3.5-5.0 g/dL Alkaline Phosphatase 108 39-117 U/L PSA Free and Total Reviewed date:07/08/2025 05:47:31 PM Interpretation: Performing Lab:[facility], [address] [place] [phone] Notes/Report: Prostate Specific Ag Total 6.3 < OR = 4.0 ng/mL Percent Free Prostate Spec Ag 22 >25 % (calc) PSA(ng/mL) Free PSA(%) Estimated(x) [...] 30 93 9 (3)Jasonona et al.:MICHI 277: 3176-6770 (1996) (4)Catalona et al.:MICHI 279: 6194-8585 (1997) (x)These estimates vary with age, ethnicity, [...] mind. PSA was performed using the Zulema Acworth Immunoassay method. Values obtained from different assay methods cannot be used interchangeably. PSA levels, regardless of value, should not be interpreted as absolute evidence of the presence or absence of disease. THIS TEST WAS PERFORMED AT: [facility] [address] [place] [phone] CLAUS SEALS MD Free Prostate Spec Ag 1.4 Liver Panel Reviewed date:07/21/2025 05:01:28 PM Interpretation: Performing Lab:[facility], [address] [place] [phone] Notes/Report: Bilirubin Total 0.5 0.0-1.0 mg/dL Bilirubin Direct 0.2 0.0-0.5 mg/dL Aspartate Amino Transferase 31 5-37 U/L Alanine Aminotransferase 42 0-40 U/L Total Protein 6.5 6.5-8.0 g/dL Albumin Level 3.9 3.5-5.0 g/dL Alkaline Phosphatase 107 39-117 U/L Complete Blood Count Auto Di ff (Not yet reviewed by provider) Interpretation: Performing Lab:[facility], [address] [place] [phone] Notes/Report: White Blood Count 8.0 4.8-10.8 X10*3/uL Red Blood Count 2.67 4.60-5.80 X10*6/uL Hemoglobin 7.8 14.0-18.0 g/dl Hematocrit 23.6 42.0-52.0 % Mean Corpuscular Volume 88.4 80.0-98.0 fL Mean Corpuscular Hemoglobin 29.2 27.0-33.0 pg Mean Corpuscular HGB Conc 33.1 31.0-36.0 g/dl Red Cell Distribution Width 15.6 11.0-16.0 % Platelet Count 210 160-400 X10*3/uL Mean Platelet Volume 9.2 9.4-12.4 fL Neutrophils Percent Auto 68.3 45-73 % Imm Gran Pct Auto 0.4 0.0-0.4 % Lymphocytes Percent Auto 21.4 20-40 % Monocytes Percent Auto 8.6 2-11 % Eosinophils Percent Auto 1.1 0-4 % Basophils Percent Auto 0.2 0-2 % NRBC Pct Auto 0.0 0.0-0.2 /100WBC Neutrophils Absolute Auto 5.5 2.0-8.3 x10*3/uL Imm Gran Abs Auto 0.03 0.00-0.03 X10*3/uL Lymphocytes Absolute Auto 1.7 1.2-4.9 X10*3/uL Monocytes Absolute Auto 0.7 0.1-1.2 X10*3/uL Eosinophils Absolute Auto 0.1 0.0-0.4 X10*3/uL Basophils Absolute Auto 0.0 0.0-0.2 X10*3/uL NRBC Abs Auto 0.000 0.0-0.012 X10*3/uL Erythrocyte Sedimentation Ra te Reviewed date:07/29/2025 04:27:40 PM Interpretation: Performing Lab:[facility], [address] [place] [phone] Notes/Report: Erythrocyte Sedimentation Rate 15 1-20 MM/HR Patients with polycythemia and many hemoglobin abnormalities may have depressed sed rates whereas patients with anemia may have elevated sed rates. Comprehensive Met. Panel Reviewed date:07/29/2025 04:26:17 PM Interpretation: Performing Lab:[facility], [address] [place] [phone] Notes/Report: Sodium 138 135-145 mmol/L Potassium 4.1 3.3-5.1 mmol/L Chloride 105 96-108 mmol/L Carbon Dioxide 24 22-29 mmol/L Anion Gap 13 12-20 Blood Urea Nitrogen 23 9-16 mg/dL Creatinine 1.13 0.5-1.4 mg/dL Estimated Glomerular Filt Rate > 60 Chronic Kidney Disease: Estimated GFR < 60 mL/min/1.73m2 Severe Kidney Disease: Estimated GFR < 15 mL/min/1.73m2 Glucose Random 135 60-115 mg/dL Calcium 8.8 8.4-10.2 mg/dL Bilirubin Total 0.4 0.0-1.0 mg/dL Aspartate Amino Transferase 36 5-37 U/L Alanine Aminotransferase 37 0-40 U/L Total Protein 6.6 6.5-8.0 g/dL Albumin Level 4.0 3.5-5.0 g/dL Alkaline Phosphatase 112 39-117 U/L C Reactive Protein Reviewed date:07/29/2025 04:27:57 PM Interpretation: Performing Lab:[facility], [address] [place] [phone] Notes/Report: C Reactive Protein 1.19 < or = 0.50 mg/dL Reason For Referral Reason HEMATURIA NEEDS A URGENT APPT Diagnosis 1 Hematuria (R31.9) Referral Organization Richard Castro MD Referring Provider First Name Richard Referring Provider Last Name Gloria Referring Provider Speciality Internal M edicine Referred Provider Nathaniel Doherty Referred Provider Specialty Urology General Notes Ana Broussard 1 09/18/2024 01:43:54 PM >REFERRAL INFO FAXED Referral Priority Routine Referral Appointment Date 07/19/2025 Medications Medication SIG (Take, Route, Frequency, Duration) Notes Start Date End Date Status Indomethacin 50 MG 1 capsule with food [...] capsule Orally O nce a day Active Staxyn 10 MG 1 tablet on the tongue and allow to dissolve as needed Orally Once a day Not-Taking Xarelto 20 MG 1 tablet with food Orally Once a day Active Linezolid 600 MG 1 tablet Orally ever y 12 hrs Active Amoxicillin 500 MG 1 capsule Orally [...] e a day for 30 day(s) Active Immunizations Vaccine Route Administration Date Status [...] Problem Status W/U Status Risk Notes Problem 130255331 Neuropathy (G62.9) Active confirmed Problem 96287721 Prostatism (N40.0) Active confirmed Problem 885349342 Paroxysmal atria l fibrillation (I48.0) Active confirmed Problem 120046227 Essential tremor (G25.0) Active confirmed Problem 609495297905001 Erectile dysfunc tion due to arterial insufficiency (N52.01) Active confirmed Problem 01240894 Mitral valve dis order (I05.9) Active confirmed Problem Pure hypercholesterolemia (929596614) Elevated LDL cholesterol level (E78.0) Active confirmed Problem 784121647 Non-rheumatic mi tral regurgitation (I34.0) Active confirmed Problem 316104667 Pure hypercholesterolemia (E78.00) Active confirmed Problem 054513483 Elevated PSA (R97.20) Active confirme d Problem 222344669 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 confirmed Problem 44202098 Hydronephrosis 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) Active confirmed Problem Melanoma of skin (86681915) Melanoma of skin (C43.9) Active confirmed Problem 566033334 Elevated serum cholesterol (E78.9) Active confirmed Problem 896678449 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 Vital Signs Blood pressure diastolic 58 mm Hg 07/18/2025 Height 70.50 in 07/18/2025 Blood pressure systolic 92 mm Hg 07/18/2025 Weight 201 lbs 07/18/2025 BMI 28.43 kg/m2 07/18/2025 Encounters Encounter Location Date Provider Diagnosis Richard Castro MD [address] [place] [id number] 07/05/2025 Richard Castro Elevated PSA R97.20 ; Encounter for administration of vaccine Z23 and Pure hypercholesterolemia E78.00 Richard Castro MD [address] [place] [id number] 12/24/2024 Richard Castro Mass in neck R22.1 ; Right shoulder pain, unspecified chronicity M25.511 and Preop examination Z01.818 Richard Castro MD [address] [place] [id number] 07/18/2025 Richard Castro Hematuria R31.9 ; El evated PSA R97.20 ; Colon cancer screening Z12.11 ; Paroxysmal atrial fibrillation I48.0 ; Melanoma of skin C43.9 ; Pure hypercholesterolemia E78.00 and Depression screening Z13.31 Richard Castro MD [address] [place] [id number] 01/15/2025 Richard Castro MD [address] [place] [id number] 02/28/2025 Richard Castro Assessments Encounter Date Diagnosis (ICD Code) Assessment Notes Treatment Notes Treatment Clinical Notes Section Notes 07/05/2025 Elevated PSA (ICD-10 - R97.20) 07/05/2025 Encounter for administration of vaccine (ICD-10 - Z23) 12/24/2024 Mass in neck (ICD-10 - R22.1) THE ORDER WAS FAXED TO [facility], pending diagnsotic testing 12/24/2024 Right shoulder pain, unspecified chronicity (ICD-10 - M25.511) 07/18/2025 Hematuria (ICD-10 - R31.9) need to see his urology urgently dr doherty 07/18/2025 Elevated PSA (ICD-10 - R97.20) followed by urology 07/05/2025 Pure hypercholesterolemia (ICD-10 - E78.00) 12/24/2024 Preop examination (ICD-10 - Z01.818) at this point i don't find anything medically to prevent his shoulder surgery 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 07/18/2025 Colon cancer screeni ng (ICD-10 - Z12.11) due for colonoscopy this year but is holding off due to all the surgery coming up 07/18/2025 Paroxysmal atrial fibrillation (ICD-10 - I48.0) not having any problems put on xarelto due to his age 1207/18/2025 Melanoma of skin (ICD-10 - C43.9) going to [facility] to have idt removed some more 07/18/2025 Pure hypercholesterolemia (ICD-10 - E78.00) 07/18/2025 Depression screening (ICD-10 - Z13.31) Plan Of Treatment Pending Test Test Name Order Date US RENAL BILATERAL 07/17/2020 US RENAL BILATERAL 07/24/2020 Complete Blood Count Auto Diff US soft tiss head and/or neck 12/24/2024 Future Test Test Name Order Date US RENAL BILATERAL 07/29/2021 Next Appt Details Provider Name:Richard Chatman ier, 08/26/2025 01:45:00 PM, [address] [place] [address], [address], [phone], Provider Name:Richard Chatman ier, 07/07/2026 07:15:00 AM, [address] [place] [address], [address] [facility], [place], [place], [phone], Provider Name:Richard Chatman ier, 07/18/2026 01:00:00 PM, [address] [place] [address], [address], [phone], Insurance Providers Payer Name Payer Address Payer Phone Subscriber Number Group Number Insured Name Patient Relationship to Insured Coverage Start Date Coverage End Date MEDICARE NHIC [address] [place] [address] [id number] Joselito Hurd Self - patient is the insured [place] [address] [place] [address] [id number] Joselito Hurd Self - patient is the [...]
--- OUTSIDE RECORDS SUMMARY | 2025-07-29 19:54 | XMS_ITS | Encounter Summary ---
Author Organization [facility] Address [address] [place] [address] Phone Care Team Providers Care Grants Officer Name Role Phone Richard Castro MD Primary Care Provider Encounter Details Date Type Department Care Team (Late st Contact Info) Description 12/12/2020 Procedure Pass Echo Lab [address] [place] [address] Social History Tobacco Use Types Packs/Day Years [...] Description 09/13/2025 10:00 AM EST Office Visit [facility] [address] [place] [address] 3rd Floor, [address] [place] [address] Roxy Burnette DNP [address] [facility], [address] [place] [address] documented as of this encounter Visit Diagnoses Not on filedocumented in this encounter Care Teams Grants Officer Relationship Specialty Start Date End Date Richard Castro MD NPI: [id number] [place] [address] [place] [address] PCP - General 06/02/17 documented as of this encounter Additional Source Comments The information contained in this document represents components of the legal health record. It is not the complete legal health record.[facility]
== END 2025-07-29 14:13 | disposition home or self-care (01) ==
LOC: HO.HOS 13:38
PROVIDERS: PCP Internal Medicine; Visit Provider Orthopaedic Surgery
DX: T84.59XA Infection and inflammatory reaction due to other internal joint prosthesis, initial encounter (principal); Z96.611 Presence of right artificial shoulder joint
CPT/HCPCS: 99024

== ENCOUNTER 2025-07-30 13:44 | Outpatient (REF) | payer MEDICARE, SELFPAY ==
[2025-07-30 13:59] LABS: MANUAL DIFF FLAG NO
[2025-07-30 14:01] LABS: Hematocrit 22.5 % (42.0-52.0); Hemoglobin 7.7 g/dl (14.0-18.0); Imm Gran Abs Auto 0.02 X10*3/uL (0.00-0.03); Imm Gran Pct Auto 0.3 % (0.0-0.4); Lymphocytes Absolute Auto 1.6 X10*3/uL (1.2-4.9); Mean Corpuscular HGB Conc 34.2 g/dl (31.0-36.0); Mean Corpuscular Hemoglobin 30.7 pg (27.0-33.0); Mean Corpuscular Volume 89.6 fL (80.0-98.0); NRBC Abs Auto 0.020 X10*3/uL (0.0-0.012); NRBC Pct Auto 0.3 /100WBC (0.0-0.2); Platelet Count 168 X10*3/uL (160-400); Red Blood Count 2.51 X10*6/uL (4.60-5.80); White Blood Count 7.3 X10*3/uL (4.8-10.8)
== END 2025-07-30 13:45 | disposition home or self-care (01) ==
LOC: HO.LAB 13:44
PROVIDERS: PCP Internal Medicine; Visit Provider Internal Medicine
DX: D64.9 Anemia, unspecified (principal)
CPT/HCPCS: 36415; 85025

== ENCOUNTER 2025-07-30 15:55 | Emergency (ER) | payer MEDICARE, SELFPAY ==
--- OUTSIDE RECORDS SUMMARY | 2024-07-03 03:30 | XMS_ITS ---
Author Organization Richard Castro MD Address [address] [place], [place] [id number] Care Team Providers Care Document Control Clerk Name Role Phone Richard Castro Primary Care Provider [phone] Results Component Value Reference Range Notes Complete Blood Count Auto Di ff Reviewed date:07/03/2024 08:00:30 PM Interpretation: Performing Lab:[facility] [place], [address] [place] [phone] Notes/Report: White Blood Count 7.5 4.8-10.8 X10*3/uL [...] NRBC Abs Auto 0.000 0.0-0.012 X10*3/uL Comprehensive [place]. Panel Fa st Reviewed date:07/03/2024 08:16:51 PM Interpretation: Performing Lab:[facility] [place], [address] [place] [phone] Notes/Report: Sodium 138 135-145 mmol/L Potassium 4.1 [...] Panel Reviewed date:07/03/2024 08:01:49 PM Interpretation: Performing Lab:[facility] [place], [address] [place] [phone] Notes/Report: Triglycerides 98 <150 mg/dL Desirable Triglyceride: [...] date:07/17/2024 04:52:07 PM Interpretation:see back 07-17-2024 Performing Lab:[facility] [place], [address] [place] [phone] Notes/Report: PSA,Total (Free>4and<10) 5.94 0.00-4.00 ng/mL PSA methodology: Burgess Alinity i Chemiluminescent Microparticle Immunoassay (CMIA) UA ClnCatch+Micro w/rflx Cul t Reviewed date:07/03/2024 08:03:57 PM Interpretation: Performing Lab:[facility] [place], [address] [place] [phone] Notes/Report: Urine, Clean Catch Color Urine Yellow Appearance Urine Clear PH 5.5 5.0-9.0 Glucose Urine UA Negative Negative mg/dL Urine Blood Negative Negative Specific [place] - Urine 1.015 1.005-1.025 Urine Protein Negative [...] Date Provider Diagnosis Richard Castro MD [address] [place], [place] [phone] 07/03/2024 Richard Castro Elevated PSA R97.20 ; Encounter for immunization Z23 and Pure hypercholesterolemia E78.00 Assessments Encounter Date Diagnosis (ICD Code) Assessment Notes Treatment Notes Treatment Clinical Notes Section Notes 07/03/2024 Elevated PSA (ICD-10 - R97.20) 07/03/2024 Encounter for immunization (ICD-10 - Z23) 07/03/2024 Pure hypercholesterolemia (ICD-10 - E78.00) Plan Of Treatment Next Appt Details Provider Name:Richard Chatman ier, 08/26/2025 01:45:00 PM, [address] [place] [address], [address], [phone], Provider Name:Richard Chatman ier, 07/07/2026 07:15:00 AM, [address] [place] [address], [address], [phone], Provider Name:Richard Chatman ier, 07/18/2026 01:00:00 PM, [address] [place] [address], [address], [phone], Progress Notes * Joselito HURD ADOB:[birth year] (75 yo M)Acc No.[id number]:07/03/2024 Progress Note Patient: Jose MESSERREE Joselito Red Provider: Del Castro MD :1950 A ge:74 Y S ex:Male Date:07/03/2024 Address:[address] [place] [address] Subjective: * Chief Complaints: * 1 . [...] - 07/03/2024 08:30 AM) L AB: Comprehensive [place]. Panel Fast (Collection Date & Time - [...] FLU VAC NO FEE SCHED SAME DAY, [address] VENIPUNCT, ROUTINE* * * The named appointment provid er may or may not be the originator of this progress note, and it is not deemed complete until electronically signed by the appointment provider. Sign off status: Pending * Provider: Del Castro MD Date: 09/02/2023 Generated for Per deleon/Amandeep/Maninder on: 1 09/30/2024 08:26 PM EST
--- OUTSIDE RECORDS SUMMARY | 2024-07-17 08:30 | XMS_ITS ---
Author Organization Richard Castro MD Address [address] [place] [phone] Care Team Providers Care Fisher Trawl Line Name Role Phone Richard Castro Primary Care Provider [phone] Allergies No Known Allergies Results Component Value [...] Location Date Provider Diagnosis Richard Castro MD [address] [place] [address] [address] [place], [place] [phone] 07/17/2024 Richard Castro Essential tremor G25 .0 [...] or maybe wait/ get last note from [facility] 07/17/2024 Colon cancer screeni ng (ICD-10 [...] or maybe wait/ get last note from [facility] Colon cancer screening guaiac negative Depression screening negative screen Next Appt Details Follow Up: 1 Year, Reason: Provider Name:Richard escamilla, 08/26/2025 01:45:00 PM, [address] [place] [address], [address] [place] [address], [phone], Provider Name:Richard escamilla, 07/07/2026 07:15:00 AM, [address] [place] [address], [address], [phone], Provider Name:Richard escamilla, 07/18/2026 01:00:00 PM, [address] [place] [address], [address], [phone], Progress Notes * Joselito HURD ADOB:[birth year] (74 yo M)Acc No.[id number]:07/17/2024 Patient: Joselito Garcia Provider: Del Castro MD :1950 A ge:74 Y S ex:Male Date:07/17/2024 Address:[address] [place] [address] Subjective: * Chief Complaints: * R eview [...] 01-23-24. * P ast Orders: L ab:Comprehensive [place]. Panel Fast (Order Date - 07/03/2024) (Collection [...] mg/dL Urine Blood Negative Negative - Specific [place] - Urine 1.015 1.005-1.025 - Urine Protein [...] or maybe wait/ get last note from [facility] 3. C olon cancer screening L AB: Occult Blood, Stool, Guaiac N egative Value Reference Range O ccult Blood, Stool, Guaiac Neg Notes: guaiac negative??4.?Depression screening? Notes: negative screen?? * Procedure Codes: 8 2270 TEST FOR BLOOD, FECES * Follow Up: 1 Year * * Sign off status: Completed true * Provider: Del Castro MD Date: 09/17/2023 Generated for Per deleon/Amandeep/Malindaitting on: 09/30/2024 08:25 PM EST History and Physical Notes * [...]
--- OUTSIDE RECORDS SUMMARY | 2024-12-24 06:00 | XMS_ITS ---
Author Organization Richard Castro MD Address [address] [place], [place] [phone] Care Team Providers Care Flasher Adjuster Name Role Phone Richard Castro Primary Care Provider Allergies No Known Allergies Results Component Value Reference Range Notes Complete Blood Count Auto Di ff Reviewed date:12/24/2024 05:16:55 PM Interpretation: Performing Lab:[facility], [address] [place] [phone] Notes/Report: White Blood Count 8.2 4.8-10.8 X10*3/uL [...] Panel Reviewed date:12/24/2024 05:16:08 PM Interpretation: Performing Lab:[facility], [address] [place] [phone] Notes/Report: Sodium 137 135-145 mmol/L Potassium 4.2 [...] 02-12-25 needs CBC BMP EKG going to Shift Supervisor Rn 01-01-25 to be cleared, Patientfound a mass [...] Location Date Provider Diagnosis Richard Castro MD [address] [place] [address] [address] [place], [place] [phone] 12/24/2024 Richard Castro Mass in neck R22.1 ; Right shoulder pain, unspecified chronicity M25.511 and Preop examination Z01.818 Assessments Encounter Date Diagnosis (ICD Code) Assessment Notes Treatment Notes Treatment Clinical Notes Section Notes 12/24/2024 Mass in neck (ICD-10 - R22.1) THE ORDER WAS FAXED TO [facility], pending diagnsotic testing 12/24/2024 Right shoulder pain, unspecified chronicity (ICD-10 - M25.511) 12/24/2024 Preop examination (ICD-10 - Z01.818) at this point i don't find anything medically to prevent his shoulder surgery if cleared by his general dentist/owner Plan Of Treatment Treatment Notes Assessment Notes Mass in neck THE ORDER WAS FAXED TO [facility], pending diagnsotic testing Preop examination at this point i don' t find anything medically to prevent his shoulder surgery if cleared by his general dentist/owner Pending Test Test Name Order Date US soft tiss head and/or neck 12/24/2024 Next Appt Details Follow Up: after us, Reason: Provider Name:Richard Garcia Lurdes escamilla, 08/26/2025 01:45:00 PM, [address] [place] [address], [address] [place] [address], [phone], Provider Name:Richard Garcia Lurdes escamilla, 07/07/2026 07:15:00 AM, [address] [place] [address], Suite [facility], [place], [place], [phone], Provider Name:Richard Garcia Lurdes escamilla, 07/18/2026 01:00:00 PM, [address] [place] [address], [address] [place] [address], [phone], Progress Notes * Joselito HURD ADOB:[birth year] (74 yo M)Acc No.[id number]:12/24/2024 Patient: Jose Joselito AKERS Provider: Del Castro MD :1950 A ge:74 Y S ex:Male Date:12/24/2024 Address:[address] [place], [place] [phone] Subjective: * Chief Complaints: * r shoulder DR Thomas 02-12-25 needs CBC BMP EKG going to Shift Supervisor Rn 01-01-25 to be clearedPatient found a mass [...] his right side. went to Urgent on [address] H [address] you had two or [...] his shoulder surgery if cleared by his general dentist/owner * Procedure Codes: 3 6415 VENIPUNCT, ROUTINE* * Follow Up: a fter us * * Sign off status: Completed true * Provider: Del Castro MD Date: 0 12/24/2024 Generated for Per deleon/Amandeep/Malindaitting on: 1 09/30/2024 08:25 PM EST History and Physical [...] his right side. went to Urgent on [address]. Have you had two or more [...]
--- OUTSIDE RECORDS SUMMARY | 2025-01-15 04:25 | XMS_ITS ---
Author Organization Richard Castro MD Address [address] [place] [phone] Care Team Providers Care Sheet Rock Nailer Name Role Phone Richard Castro Primary Care Provider [phone] REASON FOR VISIT FYI US neck cancelled Encounters Encounter Location Date Provider Diagnosis Richard Castro MD 10 [facility] [address] [place] [phone] 01/15/2025 Richard Castro Plan Of Treatment Next Appt Details Provider Name:Richard escamilla, 08/26/2025 01:45:00 PM, [address] [place] [address], [address] [place] [address], [phone], Provider Name:Richard escamilla, 07/07/2026 07:15:00 AM, [address] [place] [address], Suite [facility], [place], [place], [phone], Provider Name:Richard Chatman ier, 07/18/2026 01:00:00 PM, [address], [address], [place], [phone], Progress Notes * Joselito HURD ADOB:[birth year] (74 yo M)Acc No.[id number]:01/15/2025 Patient: Joselito HANNA :1950 A ge:74 Y S ex:Male Address:[address] [place] [address] * true * Date: Generated for Per deleon/Amandeep/Malindaitting on: 09/30/2024 08:25 PM EST
--- OUTSIDE RECORDS SUMMARY | 2025-02-28 08:57 | XMS_ITS ---
Author Organization Richard Castro MD Address [address] [place] [address] [phone] Care Team Providers Care Drum Cleaner Name Role Phone Richard Castro Primary Care Provider REASON FOR VISIT discharge Encounters Encounter Location Date Provider Diagnosis Richard Castro MD 10 [facility] [address] [place] [address] [phone] 02/28/2025 Richard Castro Plan Of Treatment Next Appt Details Provider Name:Richard escamilla, 08/26/2025 01:45:00 PM, [address] [place] [address], [address], [phone], Provider Name:Richard escamilla, 07/07/2026 07:15:00 AM, [address] [place] [address], [address], [phone], Provider Name:Richard Chatman ier, 07/18/2026 01:00:00 PM, [address], [address], [place], [place], [phone], Progress Notes * Joselito HURD ADOB:[birth year] (75 yo M)Acc No.[id number]:02/28/2025 Patient: Joselito HANNA :1950 A ge:75 Y S ex:Male Address:[address] [place] [id number] * true * Date: Generated for Per deleon/Amandeep/Kendricksmitting on: 09/30/2024 08:24 PM EST
--- OUTSIDE RECORDS SUMMARY | 2025-07-05 02:30 | XMS_ITS ---
Author Organization Richard Castro MD Address [address] [place], [place] [phone] Care Team Providers Care Arts And Crafts Instructor Name Role Phone Richard Castro Primary Care Provider Results Component Value Reference Range Notes Complete Blood Count Auto Di ff Reviewed date:07/05/2025 12:57:53 PM Interpretation: Performing Lab:[facility], [address] [place] [phone] Notes/Report: White Blood Count 7.2 4.8-10.8 X10*3/uL [...] NRBC Abs Auto 0.000 0.0-0.012 X10*3/uL Comprehensive [place]. Panel Fa st Reviewed date:07/05/2025 04:22:31 PM Interpretation: Performing Lab:[facility], [address] [place] [phone] Notes/Report: Sodium 139 135-145 mmol/L Potassium 4.1 [...] Panel Reviewed date:07/05/2025 12:57:32 PM Interpretation: Performing Lab:[address] [address] Notes/Report: Triglycerides 61 <150 mg/dL Desirable Triglyceride: [...] (Free>4and<10) Reviewed date:07/05/2025 12:56:55 PM Interpretation: Performing Lab:[address] [phone] Notes/Report: PSA,Total (Free>4and<10) 6.52 0.00-4.00 ng/mL PSA methodology: Burgess Alinity i Chemiluminescent Microparticle Immunoassay (CMIA) UA ClnCatch+Micro w/rflx Cul t Reviewed date:07/05/2025 04:23:00 PM Interpretation: Performing Lab:[address] [phone] Notes/Report: Urine, Clean Catch Color Urine Yellow Appearance Urine Clear PH 5.5 5.0-9.0 Glucose Urine UA Negative Negative mg/dL Urine Blood Small (1+) Negative Specific [place] - Urine 1.020 1.005-1.025 Urine Protein Negative [...] Location Date Provider Diagnosis Richard Castro MD [address] [place] [phone] 07/05/2025 Richard Castro Elevated PSA R97.20 ; [...] Details Provider Name:Richard escamilla, 08/26/2025 01:45:00 PM, [address] [place] [address], [address], [phone], Provider Name:Richard escamilla, 07/07/2026 07:15:00 AM, [address] [place] [address], [phone], Provider Name:Richard escamilla, 07/18/2026 01:00:00 PM, [address] [place] [address], [phone], Progress Notes * Joselito HURD ADOB:[birth year] (75 yo M)Acc No.[id number]:07/05/2025 Progress Note Patient: Joselito HANNA Provider: Del Castro MD :1950 A ge:75 Y S ex:Male Date:07/05/2025 Address:[address] [place], [place] [address] Subjective: * Chief Complaints: * 1 . [...] - 07/05/2025 07:30 AM) L AB: Comprehensive [place]. Panel Fast (Collection Date & Time - [...] * Procedure Codes: 3 6415 VENIPUNCT, ROUTINE*, [address] FLU VACCINE NO PRESERV 3 & >, G0008 ADMN FLU VAC NO FEE SCHED SAME DAY * * The named appointment provid er may or may not be the originator of this progress note, and it is not deemed complete until electronically signed by the appointment provider. Sign off status: Pending * Provider: Del Castro MD Date: 09/04/2024 Generated for Per deleon/Amandeep/Kendricksmitting on: 09/30/2024 08:26 PM EST
--- OUTSIDE RECORDS SUMMARY | 2025-07-18 08:00 | XMS_ITS ---
Author Organization Richard Castro MD Address [address] [place], [place] [phone] Care Team Providers Care Cuff Setter Overlock Name Role Phone Richard Castro Primary Care [...] Status Risk Notes Problem Melanoma of skin (88444230) Melanoma of skin (C43.9) Active confirmed Vital Signs Blood pressure systolic 92 mm Hg 07/18/20 25 Blood pressure diastolic 58 mm Hg 025 Height 70.50 in 07/18/2025 Weight 201 lbs 07/18/2025 BMI 28.43 kg/m2 07/18/2025 Encounters Encounter Location Date Provider Diagnosis Richard Castro MD [address] [place], [place] [phone] 07/18/2025 Richard Castro Hematuria R31.9 ; El [...] HEMATURI A NEEDS A URGENT APPT, Nathaniel Gonsalves Next Appt Details Follow Up: 6 Weeks, Reason: Provider Name:Richard escamilla, 08/26/2025 01:45:00 PM, [address], [address], [place], [place], [phone], Provider Name:Richard Chatman ier, 07/07/2026 07:15:00 AM, [address] [facility], [address], [place], [phone], Provider Name:Richard Chatman ier, 07/18/2026 01:00:00 PM, [address] [facility], [address], [place], [phone], Progress Notes * Joselito HURD ADOB:[birth year] (75 yo M)Acc No.[id number]:07/18/2025 Patient: Joselito HANNA Provider: Del Castro MD :1950 A ge:75 Y S ex:Male Date:07/18/2025 Address:[address] [place], [place] [phone] Subjective: * Chief Complaints: * C omp [...] Date: 09/18/2024 Generated for Per deleon/Amandeep/Malindaitting on: 09/30/2024 08:24 PM EST History and Physical Notes * [...]
[2025-07-30] VITALS (7 sets, daily range): BP systolic 101–113; BP diastolic 56–64; PULSE 65–68; RESP 15–18; TEMP 36.6–36.9; O2SAT 97–100; BMI 27.9
--- NOTE | ~2025-07-30 | US_ITS ---
CLINICAL HISTORY: Soft tissue swelling R anterior shoulder, r o abscess --- Additional Notes or Special Instructions: visualization of fluid collection. US soft tissues of the right shoulder Comparison: US - US EXTREMITY NONVAS LIMITED RT - 07/30/25 20:[address]/NV/SR - CT SHOULDER RT WO IV CON - 12/17/24 16:48 EDT Findings: Complex predominantly hypoechoic mass in the anterior right shoulder soft tissues (5.6 x 3.7 x 5.6 cm) with peripheral hypervascularity. This region is predominantly hypoechoic with increased through transmission, but is not anechoic/simple fluid. There is a region of questionable internal septation with associated vascularity (seen on color Doppler images). IMPRESSION: Complex hypoechoic mass in the anterior right shoulder soft tissues (5.6 cm) with peripheral vascularity. Findings may represent a complex abscess, but neoplasm/malignancy is not excluded. Recommend correlation with tissue/fluid sampling and follow-up ultrasound after the resolution of acute symptoms to ensure resolution. This document has been electronically signed by: Jeremy Mcleod MD on 07/30/2025 21:27:19
--- OUTSIDE RECORDS SUMMARY | 2025-07-30 08:30 | XMS_ITS ---
Author Organization Richard Castro MD Address [address] [place], [place] [phone] Care Team Providers Care Negative Turner Apprentice Name Role Phone Richard Castro Primary Care Provider Results Component Value Reference Range Notes Complete Blood Count Auto Di ff Reviewed date:07/30/2025 06:18:40 PM Interpretation: Performing Lab:[facility], [address] [place] [phone] Notes/Report: White Blood Count 7.3 4.8-10.8 X10*3/uL Red Blood Count 2.51 4.60-5.80 X10*6/uL Hemoglobin 7.7 14.0-18.0 g/dl Hematocrit 22.5 42.0-52.0 % Mean Corpuscular Volume 89.6 80.0-98.0 fL Mean Corpuscular Hemoglobin 30.7 27.0-33.0 pg Mean Corpuscular HGB Conc 34.2 31.0-36.0 g/dl Red Cell Distribution Width 15.3 11.0-16.0 % Platelet Count 168 160-400 X10*3/uL Mean Platelet Volume 8.4 9.4-12.4 fL Neutrophils Percent Auto 63.3 45-73 % Imm Gran Pct Auto 0.3 0.0-0.4 % Lymphocytes Percent Auto 22.6 20-40 % Monocytes Percent Auto 11.0 2-11 % Eosinophils Percent Auto 2.5 0-4 % Basophils Percent Auto 0.3 0-2 % NRBC Pct Auto 0.3 0.0-0.2 /100WBC Neutrophils Absolute Auto 4.6 2.0-8.3 x10*3/u L Imm Gran Abs Auto 0.02 0.00-0.03 X10*3/uL Lymphocytes Absolute Auto 1.6 1.2-4.9 X10*3/u L Monocytes Absolute Auto 0.8 0.1-1.2 X10*3/uL Eosinophils Absolute Auto 0.2 0.0-0.4 X10*3/u L Basophils Absolute Auto 0.0 0.0-0.2 X10*3/uL NRBC Abs Auto 0.020 0.0-0.012 X10*3/uL REASON FOR VISIT CBC Encounters Encounter Location Date Provider Diagnosis Richard Castro MD [address] [place] [address] [address] [place], [place] [phone] 07/30/2025 Richard Castro Anemia D64.9 Assessments Encounter Date Diagnosis (ICD Code) Assessment Notes Treatment Notes Treatment Clinical Notes Section Notes 07/30/2025 Anemia (ICD-10 - D64.9) order faxed to [facility] Reg to be done STAT Patient notified. Plan Of Treatment Treatment Notes Assessment Notes Anemia order faxed to [facility] at Reg to be done STAT Patient notified. Next Appt Details Provider Name:Richard escamilla, 08/26/2025 01:45:00 PM, [address] [place] [address], [address], [place], [place], [phone], Provider Name:Richard escamilla, 07/07/2026 07:15:00 AM, [address] [place] [address], [address], [place], [place], [phone], Provider Name:Richard Chatman ier, 07/18/2026 01:00:00 PM, [address] [facility], [address], [place], [phone], Progress Notes * Joselito HURD ADOB:[birth year] (75 yo M)Acc No.[id number]:07/30/2025 Progress Note Patient: Joselito HANNA Provider: Del Castro MD :1950 A ge:75 Y S ex:Male Date:07/30/2025 Address:[address] [place], [place] [phone] Subjective: * Chief Complaints: * 1 . CBC. * Medical History: Objective: * Vitals: Assessment: * Assessment: 1. A nemia - D64.9 Plan: * Treatment: Notes: order faxed to [facility] pat Reg to be done STAT Patient notified.?? * * The named appointment provid er may or may not be the originator of this progress note, and it is not deemed complete until electronically signed by the appointment provider. Sign off status: Pending * Provider: Del Castro MD Date: 09/30/2024 Generated for Per deleon/Amandeep/eTransmitting on: 09/30/2024 08:26 PM EST
--- OUTSIDE RECORDS SUMMARY | 2025-07-30 10:15 | XMS_ITS ---
Author Organization Richard Castro MD Address [address] [place] [phone] Care Team Providers Care Abattoir Supervisor Name Role Phone Richard Castro Primary Care Provider [phone] Allergies No Known Allergies REASON FOR VISIT [...] Status W/U Status Risk Notes Problem Anemia (592270077) Acute anemia (D64.9) Active confirmed Vital Signs Blood pressure systolic 98 mm Hg 07/30/20 25 Blood pressure diastolic 60 mm Hg 025 Height 70.50 in 07/30/2025 Weight 200 lbs 07/30/2025 BMI 28.29 kg/m2 07/30/2025 Encounters Encounter Location Date Provider Diagnosis Richard Casrto MD [address] [place], [place] [phone] 07/30/2025 Richard Castro Acute anemia D64.9 ; [...] the bowl. Next Appt Details Provider Name:Richard Chatman ier, 08/26/2025 01:45:00 PM, [facility], [address], [place], [place], [phone], Provider Name:Richard Chatman ier, 07/07/2026 07:15:00 AM, [address] [place] [address], Suite [facility], [place], [place], [phone], Provider Name:Richard Chatman ier, 07/18/2026 01:00:00 PM, [address], [address], [place], [place], [phone], Progress Notes * Joselito HURD ADOB:[birth year] (75 yo M)Acc No.[id number]:07/30/2025 Patient: Joselito HANNA Provider: Del Castro MD :1950 A ge:75 Y S ex:Male Date:07/30/2025 Address:[address] [place], [place] [phone] Subjective: * Chief Complaints: * 1 . Must see. * ROS: G eneral/Constitutional: Denies C hills. [...] C olonoscopy - done 10/30/[address] Juan David [...] amounts of blood in the bowl. * * The named appointment provid er may or may not be the originator of this progress note, and it is not deemed complete until electronically signed by the appointment provider. Sign off status: Pending * Provider: Del Castro MD Date: 09/30/2024 Generated for Per deleon/Amandeep/Malindaitting on: 09/30/2024 08:24 PM EST History and Physical Notes * Examination Category Sub-Category Detail Notes Category Not es General Examination GENERAL APPEARANCE: alert, w ell hydrated, in no distress HEAD: normocephalic HEART: regular rate and rhy thm, no murmurs, rubs, gallops LUNGS: no wheezes, rales, r honchi, good air movement, clear to auscultation bilaterally SKIN: good turgor RECTAL EXAM: stool guaiac negativ e
--- NOTE | 2025-07-30 17:12 | ED.GENADULT ---
HPI - General Adult General Chief complaint: Recheck/Abnormal Lab/Rx Stated complaint: transfusion Time Seen by Provider: 07/30/25 18:54 History of Present Illness ED Provider: Radha Bhatia NP HPI narrative: 75-year-old male history significant for atrial fibrillation status post successful cardioversion though anticoagulated on Xarelto, BPH, history of MRSA, benign essential tremor, non-Hodgkin's lymphoma (completed chemotherapy and in remission since 2009), kidney stones, s/p R rotator cuff repair 02/26/[address] Thomas, complicated by postoperative infection, now status post right shoulder I&D performed on 06/19/2025, complicated by bleeding (he is on Xarelto), seen again 06/27/2025 due to incision site infection, being managed with dry dressing changes at home, still following with Dr. Thomas with most recent in-office visit yesterday 07/29/25, presents to the ED with abnormal lab results. Patient reports he was informed by PCP to come to the ED for low H&H levels. His only complaint is dyspnea on exertion. He denies any chest pain or pressure, palpitations. No shortness of breath at rest. No orthopnea. No abdominal pain, nausea or vomiting, urinary complaints. Denies any current hematuria, denies any black or tarry stools, hematemesis, hematochezia. Related Data Home Medications ?Medication ?Instructions ?Recorded ?Confirmed diltiazem HCl 120 mg 120 mg PO DAILY 07/14/20 07/05/25 capsule,extended release 24 hr (Cartia XT) propranolol 80 mg capsule,24 80 mg PO NEEDED PRN Tremor(S) 07/15/20 07/05/25 hr,extended release tamsulosin 0.4 mg capsule 0.4 mg PO BEDTIME 12/26/23 07/05/25 rivaroxaban 20 mg tablet (Xarelto) 20 mg PO QPM 01/29/25 07/05/25 flecainide 150 mg tablet 150 mg PO BID 02/26/25 07/05/25 Previous Rx's ?Medication ?Instructions ?Recorded linezolid 600 mg tablet 600 mg PO BID 28 days #56 tabs 07/08/25 Allergies Allergy/AdvReac Type Severity Reaction Status Date / Time No Known Allergies (No Known Allergy Verified 07/30/25 17:10 Allergies*) Review of Systems Review of Systems: ROS is otherwise negative unless mentioned in HPI. [facility] Past Medical History Medical History Wears hearing aid in both ears TYONEK (hard of hearing) History of cardioversion BPH (benign prostatic hyperplasia) Hx MRSA infection (07/2018) Tremor Non-Hodgkin lymphoma Afib Hydronephrosis with renal and ureteral calculous obstruction (2019) Acute UTI Sepsis Calculus, renal Hydronephrosis Surgical History S/P right rotator cuff repair Hx of colonoscopy Hx of repair of right rotator cuff (~2014) History of left inguinal hernia repair (~2020) History of right inguinal hernia repair (08/28/18) History of bilateral inguinal hernia repair (06/28/17) History of arthroscopy of left knee Family History Family History Father Throat cancer Mother Melanoma Leukemia Social History Social History Household Members: Spouse and Children Housing: House Are you a primary healthcare economics consultant to a significant other at home: No Do you presently have visiting nurse or other home services: No 75 years or older and lives alone: No Comment: hematoma right thigh, resolved no fracture with 12/2024 fall, no head strike Patient Tobacco Use Status: Former Tobacco user Tobacco use type: Cigarette service: Yes Current occupational status: retired Physical Exam ED Exam Exam: Nursing notes and vital signs reviewed. Constitutional: Well-appearing, NAD. Alert. Oriented X3. Eyes: EOMI. ENT: Pharynx normal. Neck: Normal inspection. Neck supple. CVS: Normal heart rate and rhythm. Pulses normal. Respiratory: No respiratory distress. Breath sounds normal. Abdomen: Soft, nontender, nondistended. Skin: Skin warm and dry. Normal skin color. Extremities: No lower extremity edema. Neuro: Oriented X 3. No motor deficit. Vital Signs: Vital Signs - 24 hr 07/30/25 17:06 07/30/25 18:49 07/30/25 20:59 Temperature 98 F 97.9 F 98.4 F Pulse Rate 65 68 68 Respiratory Rate 18 18 15 Blood Pressure 104/56 L 109/62 112/61 Pulse Oximetry 98 100 Oxygen Delivery Method Room Air Room Air 07/30/25 21:18 07/30/25 21:52 07/30/25 23:28 Temperature 98.5 F 98.3 F 98.2 F Pulse Rate 68 68 66 Respiratory Rate 18 17 16 Blood Pressure 113/64 109/62 109/62 Pulse Oximetry 97 Oxygen Delivery Method Room Air 07/30/25 23:53 07/31/25 00:32 Temperature 98.2 F 98.1 F Pulse Rate 66 64 Respiratory Rate 16 18 Blood Pressure 101/62 113/64 Pulse Oximetry 97 98 Oxygen Delivery Method Room Air Room Air BMI result Body Mass Index 27.9 Course Course Course Narrative: RME: For 75 year male sent by his primary care provider for blood transfusion due to drop in hemoglobin hematocrit. Patient's states feeling fatigue but no chest pain no shortness of breath rectal bleeding or vomiting blood. Repeat labs ordered Reevaluation(s) Reevaluation #1: 3:53 AM 07/31/2025 (Ashley Decker MD): I saw this patient with the physician assistant manager bilingual. The patient is a 75-year-old male who has been on linezolid for several weeks following a right shoulder infection. The patient was sent to the emergency room today because of anemia. The patient describes symptoms consistent with the anemia including a lack of energy and exertional dyspnea. The patient does not think he has had any change in the color of his stools. Apparently his PCP performed Hemoccult testing that was negative just prior to the patient is being sent to the emergency room. The patient's physical exam is quite reassuring. His abdomen is benign. There are no signs of bruising. The patient describes having had some mild degree of hematuria last week but otherwise he does not describe any blood loss of any kind. He is not exhibiting any signs of a kidney stone at the moment. At the right shoulder there is an area of swelling that seems somewhat fluctuant although it is not tender. The swelling has a cystic quality with the palpation. However the patient can move the right shoulder easily. I do not suspect that there is any ongoing significant infection. With regard to the patient's anemia since the patient does not seem to be having any ongoing blood loss I do not see an indication for hospitalization. However since he has no particularly with the exertional dyspnea, packed red blood cells. He felt much better. We obtained an ultrasound of the soft tissues of the right anterior shoulder that showed complex hyperechoic mass with peripheral vascularity. The exact significance of this finding an ultrasound is not certain. Orthopedics was informed. Overall the patient looked quite well and felt better after transfusion. I think he may be discharged for outpatient follow up with his PCP and is orthopedist. It is possible his anemia could be related to some kind of bone marrow suppression secondary to the linezolid he has been taking. Medical Decision Making Medical Decision Making [facility] Narrative: 7:50 PM 07/30/2025 (Radha Bhatia NP): Upon my assessment, the patient overall appears well. Mucous membranes are moist. Abdominal exam is benign. Lungs CTA. He was seen by his PCP today, and per his report had a Hemoccult done at that time during that visit, which was negative per patient. I have no clinical suspicion for GI bleed. He has no black or tarry stools, has already had a negative Hemoccult outpatient. He is not vomiting, has no nausea. I have no clinical suspicion for bleeding postoperatively to the joint. There is no redness, bruising, warmth. Additionally there is a small pocket of fluid that can be palpated to the anterior right shoulder joint. I do not suspect an active infection, we will further obtain ultrasound of this area. He does tell me he has been on Linezolid for several months. There is a side effect of this for myelosuppression. This may be causing his acute anemia. Over the course of 1 month, he has dropped 3 points. Was previously in the 10s, is now 7.8. Will order for transfusion of blood 1 unit, and likely a plan to discharge home with outpatient PCP follow up. Pending US. 11:47 PM: Transfusion has completed. Does report a significant improvement in his symptoms after the transfusion. No noted reactions. The ultrasound did show evidence of a fluid collection, I spoke with orthopedic PA on-call Js who reports they follow the patient closely in the office and we will continue to do so. Therefore, there was no indication for additional workup or for admission to the hospital at this time. He can be further managed by PCP and Orthopedics outpatient. Given return precautions to the ED. Differential Diagnosis Differential Diagnoses: The differential diagnosis associated with the presentation includes GI bleeding, post-operative infection Admission/Observation Consideration of admission/observation: Escalation of care including admission/observation considered (Not indicated) Consult Healthcare Provider Management of the patient was discussed with: Funds Development Director (Orthopedics) Lab Data MDM Lab Attestation statement: I reviewed the patient's lab results. (Anemic) 07/30/25 17:35 07/30/25 17:35 Labs: Lab Results 07/30/25 07/30/25 Range/Units 17:35 21:05 WBC 6.9 (4.8-10.8) X10*3/uL RBC 2.67 L (4.60-5.80) X10*6/uL Hgb 7.8 L (14.0-18.0) g/dl Hct 23.3 L (42.0-52.0) % MCV 87.3 (80.0-98.0) fL MCH 29.2 (27.0-33.0) pg MCHC 33.5 (31.0-36.0) g/dl RDW 15.4 (11.0-16.0) % Plt Count 209 (160-400) X10*3/uL MPV 9.0 L (9.4-12.4) fL Immature Gran % (Auto) 0.3 (0.0-0.4) % Neut % (Auto) 61.2 (45-73) % Lymph % (Auto) 26.2 (20-40) % [place] % (Auto) 9.4 (2-11) % Eos % (Auto) 2.5 (0-4) % Baso % (Auto) 0.4 (0-2) % Lymph # (Auto) 1.8 (1.2-4.9) X10*3/uL [place] # (Auto) 0.7 (0.1-1.2) X10*3/uL Eos # (Auto) 0.2 (0.0-0.4) X10*3/uL Baso # (Auto) 0.0 (0.0-0.2) X10*3/uL Abs Immat Gran (auto) 0.02 (0.00-0.03) X10*3/uL Absolute Neuts (auto) 4.2 (2.0-8.3) x10*3/uL Absolute Nucleated RBC 0.000 (0.0-0.012) X10*3/uL Nucleated RBC % (auto) 0.0 (0.0-0.2) /100WBC PT 20.4 H (11.2-13.5) SEC INR 1.7 H (0.9-1.1) APTT 40.8 H (26.7-34.1) SEC Sodium 137 (135-145) mmol/L Potassium 4.3 (3.3-5.1) mmol/L Chloride 104 (96-108) mmol/L Carbon Dioxide 25 (22-29) mmol/L Anion Gap 12 (12-20) BUN 25 H (9-16) mg/dL Creatinine 1.05 (0.5-1.4) mg/dL Estim Creat Clear Calc 68.9 Estimated GFR > 60 Random Glucose 104 (60-115) mg/dL Calcium 8.8 (8.4-10.2) mg/dL Total Bilirubin 0.4 (0.0-1.0) mg/dL AST 32 (5-37) U/L ALT 37 (0-40) U/L Alkaline Phosphatase 118 H (39-117) U/L Total Protein 6.9 (6.5-8.0) g/dL Albumin 4.1 (3.5-5.0) g/dL Urine Color Yellow Urine Appearance Clear Urine pH 5.5 (5.0-9.0) Ur Specific Anna 1.025 (1.005-1.025) Urine Protein Negative (Neg-Trace) mg/dL Urine Glucose (UA) Negative (Negative) mg/dL Urine Ketones Negative (Negative) mg/dL Urine Blood Negative (Negative) Urine Nitrite Negative (Negative) Ur Leukocyte Esterase Negative (Negative) Urine RBC 0-2 (0-2) /HPF Urine WBC 0-5 (0-5) /HPF Ur Squamous Epith Cells 0-2 (0-2) /HPF Urine Bacteria None Seen (None Seen) Hyaline Casts 0-2 (0-2) /LPF Blood Type A Positive Antibody Screen NEGATIVE Crossmatch See Detail Independent Interpretation I performed an independent interpretation of an: EKG Interpretation: Rate: 69 Rhythm: NSR [place]:41/-4/5 Normal P waves. Normal NAHEED. Normal QRS complex. ST T wave : no dep, elev qTC: 488 prior studies: similar The study has been interpreted contemporaneously by me. Radiology Impression Discussion of test interpretation with radiology: I have reviewed the radiologist's reading. Radiologist Impression: IMPRESSION: Complex hypoechoic mass in the anterior right shoulder soft tissues (5.6 cm) with peripheral vascularity. Findings may represent a complex abscess, but neoplasm/malignancy is not excluded. Recommend correlation with tissue/fluid sampling and follow-up ultrasound after the resolution of acute symptoms to ensure resolution. Independent Historian Clinical information obtained from an independent historian. History obtained from or confirmed by: Spouse External Record Review External record reviewed: Inpatient record, Office record, Outpatient record, Prior outpatient labs, Prior outpatient radiology and Primary care record Chronic Conditions Patient?s care impacted by: Other (Afib, on anticoagulant) Social Determinants Patient?s care significantly limited by Social Determinants of Health including: Problems related to primary support group Discharge Plan Discharge Clinical Impression: Palpable mass of soft tissue of shoulder Anemia Qualifiers: Anemia type: unspecified type Qualified Code(s): D64.9 - Anemia, unspecified Patient Disposition: Home, Self-Care Instructions: Anemia (ED), Soft Tissue Mass (ED) Additional Instructions: As we discussed, your workup today was overall reassuring. Your lab work did show some anemia with a hemoglobin of 7.8. This is similar in comparison to yesterday, but a drop over the past 1 month. In the ER today you were given a unit of blood. Please have your lab levels rechecked outpatient in the next 1-3 days. Additionally, you had an ultrasound of the right shoulder that showed a soft tissue mass. I spoke with the orthopedic PA on-call while you were in the ED, I recommend you see them in the next few days outpatient as well. If you develop any worsening complaints at any time, it is important that you return back to the ED for additional assessment. Prescriptions: No Action diltiazem HCl [Cartia XT] 120 mg capsule,extended release 24hr 120 mg PO DAILY propranolol 80 mg capsule,extended release 24 hr 80 mg PO NEEDED PRN (Reason: Tremor(S)) Xarelto 20 mg Tablet 20 mg PO QPM Rx Instructions: must administer with evening meal flecainide 150 mg tablet 150 mg PO BID tamsulosin 0.4 mg capsule 0.4 mg PO BEDTIME linezolid 600 mg tablet 600 mg PO BID 28 Days Qty: 56 0RF Referrals: Richard Castro MD [Primary Care Provider, Medical] Interventions: ED Discharge Assessment Last Done: 07/31/25 00:32 Discharge Date/Time: 07/31/25 00:33 Print Language: Lithuanian
[2025-07-30 17:48] LABS: MANUAL DIFF FLAG NO
[2025-07-30 17:56] LABS: INTERNATIONAL NORM RATIO 1.7 (0.9-1.1); Prothrombin Time 20.4 SEC (11.2-13.5)
[2025-07-30 17:59] LABS: Partial Thromboplastin Time 40.8 SEC (26.7-34.1)
[2025-07-30 18:07] LABS: Alanine Aminotransferase 37 U/L (0-40); Albumin Level 4.1 g/dL (3.5-5.0); Alkaline Phosphatase 118 U/L (39-117); Anion Gap 12 (12-20); Aspartate Amino Transferase 32 U/L (5-37); Blood Urea Nitrogen 25 mg/dL (9-16); Calcium 8.8 mg/dL (8.4-10.2); Carbon Dioxide 25 mmol/L (22-29); Chloride 104 mmol/L (96-108); Creatinine Clr Calc Pharmacy 68.9; Estimated Glomerular Filt Rate > 60; Potassium 4.3 mmol/L (3.3-5.1); Sodium 137 mmol/L (135-145); Total Protein 6.9 g/dL (6.5-8.0)
[2025-07-30 18:11] LABS: Hematocrit 23.3 % (42.0-52.0); Hemoglobin 7.8 g/dl (14.0-18.0); Imm Gran Abs Auto 0.02 X10*3/uL (0.00-0.03); Imm Gran Pct Auto 0.3 % (0.0-0.4); Lymphocytes Absolute Auto 1.8 X10*3/uL (1.2-4.9); Mean Corpuscular HGB Conc 33.5 g/dl (31.0-36.0); Mean Corpuscular Hemoglobin 29.2 pg (27.0-33.0); Mean Corpuscular Volume 87.3 fL (80.0-98.0); NRBC Abs Auto 0.000 X10*3/uL (0.0-0.012); NRBC Pct Auto 0.0 /100WBC (0.0-0.2); Platelet Count 209 X10*3/uL (160-400); Red Blood Count 2.67 X10*6/uL (4.60-5.80); White Blood Count 6.9 X10*3/uL (4.8-10.8)
--- NOTE | 2025-07-30 19:06 | PC.NURSE ---
Assumed care of pt, bedside report received. PT resting comfortably, awaiting MD orders. Hematuria resolved awaiting urine sample. VSS.
--- NOTE | 2025-07-30 20:08 | ECG_ITS ---
Test Reason : ANEMIA Blood Pressure : */* mmHG Vent. Rate : 69 BPM Atrial Rate : 69 BPM P-R Int : 238 ms QRS Dur : 156 ms QT Int : 456 ms P-R-T Axes : 41 -4 5 degrees QTcB Int : 488 ms Sinus rhythm with 1st degree A-V block Right bundle branch block Abnormal ECG When compared with ECG of 14-Jul-2020 20:13, NC interval has increased Vent. rate has decreased by 40 bpm QRS duration has increased Referred By: Radha Bhatia Electronically Signed By: Aubrey Glover
--- OUTSIDE RECORDS SUMMARY | 2025-07-30 20:25 | XMS_ITS | Encounter Summary ---
Author Organization [facility] Address [address] [place] [phone] Care Team Providers Care Stave Hewer Name Role Phone Richard Castro MD Primary Care Provider Encounter Details Date Type Department Care Team (Late st Contact Info) Description 07/25/2025 Lab Requisition [facility] - Main Lab [address] [facility] [place] [address] Nikolay Marcano, TAY [address] [place] [address] Gross hematuria Social History Tobacco Use Types [...] hematuria documented in this encounter Care Teams Stave Hewer Relationship Specialty Start Date End Date Richard Castro MD [address] [place] [address] Drive [address] [place] [address] PCP - General Internal Medicine 07/19/25 documented as of this encounter
--- OUTSIDE RECORDS SUMMARY | 2025-07-30 20:25 | XMS_ITS | Encounter Summary ---
Author Organization [facility] Address [address] [facility] [address] [place] [address] Phone Care Team Providers Care Ignition Specialist Name Role Phone Richard Castro MD Primary Care Provider Encounter Details Date Type Department Care Team (Latest Contact Info) Description 06/04/2017 Ancillary Orders [facility] [address] [place] [address] 3rd Floor, [address] [place] [address] Av Orozco MD [address] [place] [address] Diagnosis unknown Social History Tobacco Use Types [...] Description 09/13/2025 10:00 AM EST Office Visit [facility] [address] Floor, [address] [place] [address] Roxy Burnette DNP [address] [place] [address], [address] [address] documented as of this encounter Visit Diagnoses Diagnosis Diagnosis unknown documented in this encounter Care Teams Ignition Specialist Relationship Specialty Start Date End Date Richard Castro MD [address] [place] [address] Dr Chaudhary, [place] [address] PCP - General 06/02/17 documented as of this encounter Additional Source Comments The information contained in this document represents components of the legal health record. It is not the complete legal health record.[facility]
--- OUTSIDE RECORDS SUMMARY | 2025-07-30 20:25 | XMS_ITS | Encounter Summary ---
Author Organization [facility] Address [address] [address] [place] [address] Phone Care Team Providers Care Cnc Technician Name Role Phone Richard Castro MD Primary Care Provider Encounter Details Date Type Department Care Team (Latest Contact Info) Description 11/15/2017 Ancillary Orders [facility] [address] Floor, [address] [place] [phone] Av Orozco MD [address] [place] [phone] Paroxysmal atrial fibrillation Social History Tobacco Use [...] Description 09/13/2025 10:00 AM EST Office Visit [facility] [address] Floor, [address] [place] [phone] Roxy Burnette DNP [address] [facility], [address] [phone] documented as of this encounter Results * TTE COMPREHENSIVE (11/17/2017 10:06 AM EDT) Anatomical Region Laterality Modality Heart Ultrasound us Av Orozco MD CV ECHO ORDERABLES Final Result documented in this encounter Visit Diagnoses Diagnosis Paroxysmal atrial fibrillation Atrial fibrillation documented in this encounter Care Teams Cnc Technician Relationship Specialty Start Date End Date Richard Castro MD [address] [place] [address] [place] [address] PCP - General 06/02/17 documented as of this encounter Additional Source Comments The information contained in this document represents components of the legal health record. It is not the complete legal health record.[facility]
--- OUTSIDE RECORDS SUMMARY | 2025-07-30 20:25 | XMS_ITS | Encounter Summary ---
Author Organization [facility] Address [address] [place] [address] Care Team Providers Care Pipe Threader Name Role Phone Richard Castro MD Primary Care Provider Encounter Details Date Type Department Care Team (Late st Contact Info) Description 07/19/2025 Lab Requisition [facility] - Main Lab [address] [place] [address] Nikolay Marcano, TAY [address] [place] [address] Gross hematuria Social History Tobacco Use Types [...] Urine No growth 07/20/2025 1:59 PM EST [facility] Urine Urine specimen obtained by clean catch procedure / Unknown 07/19/2025 1:15 PM EST 07/19/2025 6:23 PM EST us Nikolay CROSS LAB MICROBIOLOGY - GENERAL VANESSA KULKARNI Final Result [facility] [address] [place] [address], documented in this encounter Visit Diagnoses Diagnosis Gross hematuria documented in this encounter Care Teams Pipe Threader Relationship Specialty Start Date End Date Richard Castro MD [address] [place] [address] [place] [id number] PCP - General Internal Medicine 07/19/25 documented as of this encounter
--- OUTSIDE RECORDS SUMMARY | 2025-07-30 20:25 | XMS_ITS | Clinical Summary ---
Author Organization [address] [facility] Address [address] [place] [address] Phone Care Team Providers Care Director Hedis Name Role Phone Richard Castro MD Primary Care Provider Encounters Date Type Department Care Team Description 07/25/2025 Lab Requisition [facility] [address] [place] [address] Nikolay Marcano PA Gross hematuria 07/19/2025 Lab Requisition [facility] [address] [place] [address] Nikolay Marcano PA Gross hematuria [...] Urine No growth 07/20/2025 1:[address] [facility] Urine Urine specimen obtained by clean catch procedure / Unknown 07/19/2025 1:15 PM EST 07/19/2025 6:23 PM EST [facility] Garret PA LAB MICROBIOLOGY - GENERAL VANESSA KULKARNI Final Result [facility] [address] [place] [address], from Last 3 Months Insurance MEDICARE [facility] Care Teams Director Hedis Relationship Specialty Start Date End Date Richard Castro MD [address] [facility] [address] [place] [address] PCP - General Internal Medicine 07/19/25
--- OUTSIDE RECORDS SUMMARY | 2025-07-30 20:25 | XMS_ITS | Clinical Summary ---
Author Organization [facility] Address [address] [address] Phone Care Team Providers Care Pool Installer Name Role Phone Richard Castro MD Primary [...] and now has another point to his [id number] score now making him by 2 which [...] Type Department Care Team Description 06/18/2025 Telephone [facility] [address] [place] [address] Jeniffer Joseph DNP 05/17/2025 1:20 PM EDT Office Visit [facility] [address], [address] [place] [address] Dianelys Fonseca MD Paroxysmal atrial fibrillation (Primary Dx); Current use of fpc anticoagulation 05/13/2025 4:00 PM EDT Office Visit [facility] [place] [address] [address] [place] [address] Kyle Montanez MD Other chest pain (Primary [...] Description 09/13/2025 10:00 AM EST Office Visit [facility] [address] [place] [address] [address] [facility], [address] [place] [address] Roxy Burnette DNP [address] [place] [address], [address] [address] Health Maintenance Due Date Last Done Comments Adult Td,Tdap Booster 1950 LIPID PANEL 1949 DEPRESSION SCREENING 1961 HEPATITIS C SCREENING 1967 ZOSTER VACCINES (1 of 2) 1999 CREATININE LEVEL 09/10/2023 09/10/2022 RSV VACCINE (1 - 1-dose 75+ series) 02/25/2024 INFLUENZA VACCINE (#1) 2025 2, 07/13/2021, 04/22/2020, Additional history exists COVID-19 VACCINE (2024-26 season) 2025 07/20/2021, 11/12/2020, 10/22/2020 PNEUMOCOCCAL VACCINES [...] this topic Medical Devices Implanted Type Area Cellular Tower Climber Device Identifier Shelf Expiration Date Model / [...] LAB BLOOD BKR ORDERABLES Fin al Result [facility] [address] [place], [place] [id number] from Last 3 Months or Most Recently Relevant to Health Maintenance Insurance [employer] MEDEX SUPPLEMENT MEDICARE PART A & B Member Subscriber Plan / Payer (Ef fective 2014-Present) Name:Roosevelt Hurd Member ID:[id number] Relation to Subscriber:Self Name:Roosevelt Hurd Subscriber ID:[id number] Payer ID:[id number] Group ID:Not on file Type:Medicare Address: [employer] [facility] [address] [address] [employer] MEDEX SUPPLEMENT MEDICARE PART A & B [employer] MEDEX SUPPLEMENT MEDICARE PART A & B MEDICARE PART A & B [employer] MEDEX SUPPLEMENT MEDICARE PART A & B [employer] MEDEX SUPPLEMENT MEDICARE PART A & B [employer] MEDEX SUPPLEMENT MEDICARE PART A & B [employer] MEDEX SUPPLEMENT MEDICARE PART A & B [employer] MEDEX SUPPLEMENT MEDICARE PART A & B Care Teams Pool Installer Relationship Specialty Start Date End Date Richard Castro MD [address] [place] [address] [place] [address] PCP - General 06/02/17 Additional Source Comments The information contained in this document represents components of the legal health record. It is not the complete legal health record.[facility]
--- OUTSIDE RECORDS SUMMARY | 2025-07-30 20:26 | XMS_ITS | Encounter Summary ---
Author Organization [facility] Address [address] [facility] [address] [place] [address] Phone Care Team Providers Care X Ray Examiner Of Aircraft Name Role Phone Richard Castro MD Primary Care Provider Encounter Details Date Type Department Care Team (Late Contact Info) Description 08/26/2022 Procedure Pass [facility] [address] [place] [address] Social History Tobacco Use Types Packs/Day Years [...] Description 09/13/2025 10:00 AM EST [facility] [address] [facility] 3rd Floor, [address] [place] [address] Roxy Burnette DNP 22 [facility], [address] [address] [email or web address] documented as of this encounter Visit Diagnoses Not on filedocumented in this encounter Care Teams X Ray Examiner Of Aircraft Relationship Specialty Start Date End Date Richard Castro MD [address] [place] [address] [place] [address] PCP - General 06/02/17 documented as of this encounter Additional Source Comments The information contained in this document represents components of the legal health record. It is not the complete legal health record.[facility]
--- OUTSIDE RECORDS SUMMARY | 2025-07-30 20:27 | XMS_ITS | Encounter Summary ---
Author Organization [facility] Address [address] [facility] [address] [place] [address] Phone Care Team Providers Care Hogshead Roller Name Role Phone Richard Castro MD Primary Care Provider Encounter Details Date Type Department Care Team (Late st Contact Info) Description 12/12/2020 Procedure Pass [facility] [address] [place] [address] Social History Tobacco Use Types Packs/Day Years [...] Description 09/13/2025 10:00 AM EST Office Visit [facility] 22 [facility] 3rd Floor, [address] [place], [place] [address] Roxy Burnette DNP 22 [facility], [facility] [address] [place], [place] [id number] [email or web address] documented as of this encounter Visit Diagnoses Not on filedocumented in this encounter Care Teams Hogshead Roller Relationship Specialty Start Date End Date Richard Castro MD [address] [place] [address] [place] [address] PCP - General 06/02/17 documented as of this encounter Additional Source Comments The information contained in this document represents components of the legal health record. It is not the complete legal health record.[facility]
--- OUTSIDE RECORDS SUMMARY | 2025-07-30 20:27 | XMS_ITS | Patient Health Record ---
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 Problems Problem Type SNOMED Code ICD Code Onset Dates Problem Status W/U Status Risk Notes Problem Hemorrhoids (40977003) Hemorrhoids (455.6) Active confirmed Problem Colon cancer screening (179910020) Colon cancer screening (V76.51) Active confirmed Problem Feces contents abnormal (381240441) Abnormal findings in stool (792.1) Active confirmed Plan Of Treatment Future Test Test Name Order Date COLONOSCOPY 07/26/2014 Insurance Providers Payer Name Payer Address Payer Phone Subscriber Number Group Number Insured Name Patient Relationship to Insured Coverage Start Date Coverage End Date [facility] [address] [address] [place] [address] [id number] ROOSEVELT SAMUELS Self - patient is the insured MEDICARE OF [place] [address] [facility] [place] [id number] [phone] [id number] ROOSEVELT SAMUELS Self - patient is the insured Medical (General) History Medical History History ICD Code lymphoma Atrial fibrillation mitral valve prolapse Surgical History Surgery Date(Month/Year) lymphectomy 1 node under arm 2010
--- OUTSIDE RECORDS SUMMARY | 2025-07-30 20:27 | XMS_ITS | Patient Health Record ---
Author Organization Richard Castro MD Address [address] [place], [place] [id number] Care Team Providers Care Design Engineering Intern Name Role Phone Richard Castro Primary Care Provider Allergies No Known Allergies Results Component Value Reference Range Notes Complete Blood Count Auto Di ff Reviewed date:07/05/2025 12:57:53 PM Interpretation: Performing Lab:[facility], [address] [place] [phone] Notes/Report: White Blood Count 7.2 4.8-10.8 X10*3/uL [...] NRBC Abs Auto 0.000 0.0-0.012 X10*3/uL Comprehensive [place]. Panel Fa st Reviewed date:07/05/2025 04:22:31 PM Interpretation: Performing Lab:[facility], [address] [place] [phone] Notes/Report: Sodium 139 135-145 mmol/L Potassium 4.1 [...] Panel Reviewed date:07/05/2025 12:57:32 PM Interpretation: Performing Lab:[address] [phone] Notes/Report: Triglycerides 61 <150 mg/dL Desirable Triglyceride: [...] (Free>4and<10) Reviewed date:07/05/2025 12:56:55 PM Interpretation: Performing Lab:[address] [phone] Notes/Report: PSA,Total (Free>4and<10) 6.52 0.00-4.00 ng/mL PSA methodology: Burgess Alinity i Chemiluminescent Microparticle Immunoassay (CMIA) UA ClnCatch+Micro w/rflx Cul t Reviewed date:07/05/2025 04:23:00 PM Interpretation: Performing Lab:[address] [phone] Notes/Report: Urine, Clean Catch Color Urine Yellow Appearance Urine Clear PH 5.5 5.0-9.0 Glucose Urine UA Negative Negative mg/dL Urine Blood Small (1+) Negative Specific [place] - Urine 1.020 1.005-1.025 Urine Protein Negative [...] ff Reviewed date:12/24/2024 05:16:55 PM Interpretation: Performing Lab:[facility], [address] [place] [phone] Notes/Report: White Blood Count 8.2 4.8-10.8 X10*3/uL [...] Panel Reviewed date:12/24/2024 05:16:08 PM Interpretation: Performing Lab:[facility], [address] [place] [phone] Notes/Report: Sodium 137 135-145 mmol/L Potassium 4.2 [...] date:12/19/2024 05:35:49 PM Interpretation: Performing Lab: Notes/Report: [address] [address] [address] Scan Report Signed Patient: Joseilto Hurd Sr MR#: [id number] : 1950 Acct:[id number] Age/Sex: 74 / M ADM Date: 12/17/24 Loc: HO.CT Attending Dr: Js Marquez PA-C Ordering Physician: Js Marquez PA-C Date of Service: 12/17/24 Procedure(s): CT shoulder RT wo IV con Accession Number(s): [id number] cc: Richard Castro MD; Js Marquez PA-C Report Number: [id number]: Total DLP = 283.00 mGy-cm CLINICAL HISTORY: [...] in OV> 12/19/24913 DD/ 2 TD/TT: 12/19/24912 Plate Cutter: [place] [address] CT Scan Report Signed Patient: Flavia Hurd Sr MR#: [id number] : 1950 Acct:[id number] Age/Sex: 74 / M ADM Date: 12/17/24 Loc: HO.CT Attending Dr: Justino Marquez PA-C Ordering Physician: Js Marquez PA-C Date of Service: 12/17/24 Procedure(s): CT staci obrien RT wo IV con Accession Number(s): [id number] cc: Richard Castro MD; Js Marquez PA-C [...] in OV> 12/19/2414 DD/ 2 TD/TT: 12/19/24912 Plate Cutter: MRSA Nasal Screen Reviewed date:01/29/2025 05:00:18 PM Interpretation: Performing Lab:[facility], [address] [place] [phone] Notes/Report: MRSA Nasal PCR NEGATIVE Negative SA Nasal PCR NEGATIVE Negative MRSA Interpretation SEE NOTE MRSA target DNA not detected; SA target DNA not detected. A MRSA NEGATIVE, SA NEGATIVE test result does not preclude MRSA or SA nasal colonization. Complete Blood Count Auto Di ff Reviewed date:02/21/2025 05:04:30 PM Interpretation: Performing Lab:[facility], [address] [place] [phone] Notes/Report: White Blood Count 5.4 4.8-10.8 X10*3/uL [...] Panel Reviewed date:02/21/2025 04:13:13 PM Interpretation: Performing Lab:[facility], [address] [place] [phone] Notes/Report: Sodium 138 135-145 mmol/L Potassium 4.5 [...] Screen Reviewed date:02/21/2025 04:00:33 PM Interpretation: Performing Lab:[facility], [address] [place] [phone] Notes/Report: Spec expiration changed by ARPITA on 02/21/25 Reason: PAT NURSING: Call Blood Bank (ext. [phone]) to band patient on admission. Type and Screen in effect until 2300 on 02/26/25 Witnessed by PORTERS Blood Type AP Antibody Screen NEGATIVE Hemoglobin and Hematocrit Reviewed date:02/26/2025 12:28:58 PM Interpretation: Performing Lab:[facility], [address] [place] [phone] Notes/Report: Hemoglobin 13.7 14.0-18.0 g/dl Hematocrit 40.8 42.0-52.0 % Pathology Reviewed date:02/28/2025 05:07:11 PM Interpretation: Performing Lab:[facility], [address] [place] [phone] Notes/Report: ------ Name: Joselito Hurd Sr Age/Sex: 75/M : 1950 Unit#: [id number] Attend Dr: Clint Thomas MD Re02/26/25 Status : [facility] Disch: ------ SPEC : [id number] RECD : 02/27/25 STATUS: EARNEST WALLER NUM: [id number] KRISTINA: 02/26/251449 [facility] DR: Clint Thomas MD ENTERED: 02/27/25 52 [...] yet, brittle, tapia-yellow with yellow-pink bone marrow. Clinical Transformation Specialist secti ons are submitted in a cassette labeled A1 following decalcification. CEDS IHC S/NG Disclaimer NOTE: Unless otherwi se stated, all tissue is formalin-fixed and paraffin-embedded. Some or all of the immunohistochemical tests reported herein may have been developed and their performance characteristics determined by [facility]. They have not been cleared or appr saima by the U.S. Food and Drug Administration (FDA). However, the FDA has determined that such clearance or approval is not necessary. This laboratory is certified under the Clinical Laboratory Improvement Amendments of 1988 (CLIA) as qualified to perform high comp lexity clinical laboratory testing. Copies To: Richard Castro MD [facility] [address] [address] CONTINUED ON NEXT PAGE ------ Name: Joselito Hurd Sr Age/Sex: 75/M : 1950 Unit#: [id number] Attend Dr: Clint Thoams MD Re02/26/25 Status : [facility] Location: [facility] Disch: ------ SPEC : [id number] RECD : 02/27/25 STATUS: EARNEST WALLER NUM: [id number] KRISTINA: 02/26/25-9 [facility] DR: Clint Thomas MD ENTERED: 02/27/25- 53 SP TYPE: Surgical OTHR DR: Richard Castro MD ORDERED: Gross Micro L3, Decal Copies To: (Continued) Clint Thomas MD [facility] [address] [place] [address] [address] [place] [address] ------ Signed (signature on file) Leon Keene MD 02/28/25 1146 ------ END OF REPORT XR shoulder RT 1V Reviewed date:02/26/2025 05:10:31 PM Interpretation: Performing Lab: Notes/Report: [address] [address] XRay Report Signed Patient: Joselito Hurd Sr MR#: [id number] : 1950 Acct:[id number] Age/Sex: 75 / M ADM Date: 02/26/25 Loc: HO.S3 345-[address]: Clitn Thomas MD Ordering Physician: Js Marquez PA-C Date of Service: 02/26/25 Procedure(s): XR shoulder RT 1V Accession Number(s): [id number] cc: Richard Castro MD; Js Marquez PA-C [...] 02/26/25 1702 DD/ 1539 TD/TT: 02/26/25 1642 Plate Cutter: [address] [address] XRay Report Signed Patient: Flavia Hurd Sr MR#: [id number] : 1950 Acct:[id number] Age/Sex: 75 / M ADM Date: 02/26/25 Loc: HO.S3 345-[address]: Clint ellison MD Ordering Physician: Js Marquez PA-C Date of Service: 02/26/25 Procedure(s): XR staci ulder RT 1V Accession Number(s): [id number] cc: Richard Castro MD; Js Marquez PA-C [...] 02/26/25 1702 DD/ 1539 TD/TT: 02/26/25 1642 Plate Cutter: Complete Blood Count Auto Di ff Reviewed date:02/27/2025 04:10:37 PM Interpretation: Performing Lab:[facility], [address] [place] [phone] Notes/Report: White Blood Count 11.9 4.8-10.8 X10*3/uL [...] g Reviewed date:02/27/2025 04:01:26 PM Interpretation: Performing Lab:[address] [phone] Notes/Report: Sodium 136 135-145 mmol/L Potassium 4.2 [...] stain Reviewed date:06/20/2025 05:05:21 PM Interpretation: Performing Lab:[address] [place] [address] Notes/Report: RIGHT SHOULDER PER R/O C.ACNES RT SHOULDER Gram stain Gram stain results: Gram stain 4+ polys Gram stain 4+ red blood cells Gram stain No organisms seen Routine Culture Reviewed date:06/20/2025 03:38:27 PM Interpretation: Performing Lab:[facility], [address] [place] [phone] Notes/Report: RIGHT SHOULDER PER R/O C.ACNES RT SHOULDER Routine Culture No growth after 2 days Anaerobic Culture Reviewed date:06/20/2025 03:38:01 PM Interpretation: Performing Lab:[facility], [address] [place] [phone] Notes/Report: RIGHT SHOULDER PER R/O C.ACNEVani RT SHOULDER O:CUTIAC Cutibacterium acnes Anaerobic Culture B-Lac Susc (reported) Anaerobic Culture Beta-lactamase not produced; suggests PEN/AMP susceptibility Anaerobic Culture Quant Org ID Anaerobic Culture 1+ Liver Panel Reviewed date:06/27/2025 04:46:56 PM Interpretation: Performing Lab:[facility], [address] [place] [phone] Notes/Report: Bilirubin Total 0.2 0.0-1.0 mg/dL Bilirubin Direct < 0.2 0.0-0.5 mg/dL Aspartate Amino Transferase 26 5-37 U/L Alanine Aminotransferase 30 0-40 U/L Total Protein 7.4 6.5-8.0 g/dL Albumin Level 4.0 3.5-5.0 g/dL Alkaline Phosphatase 108 39-117 U/L PSA Free and Total Reviewed date:07/08/2025 05:47:31 PM Interpretation: Performing Lab:[facility], [address] [place] [phone] Notes/Report: Prostate Specific Ag Total 6.3 < [...] 30 93 9 (3)Jasonona et al.:MICHI 277: 5414-6735 (1996) (4)Catalona et al.:MICHI 279: 4678-8295 (1997) (x)These estimates vary with age, ethnicity, [...] mind. PSA was performed using the Zulema Chester Immunoassay method. Values obtained from different assay methods cannot be used interchangeably. PSA levels, regardless of value, should not be interpreted as absolute evidence of the presence or absence of disease. THIS TEST WAS PERFORMED AT: [facility] [address] [place] [phone] CLAUS SEALS MD Free Prostate Spec Ag 1.4 Liver Panel Reviewed date:07/21/2025 05:01:28 PM Interpretation: Performing Lab:[facility], [address] [place] [phone] Notes/Report: Bilirubin Total 0.5 0.0-1.0 mg/dL Bilirubin Direct 0.2 0.0-0.5 mg/dL Aspartate Amino Transferase 31 5-37 U/L Alanine Aminotransferase 42 0-40 U/L Total Protein 6.5 6.5-8.0 g/dL Albumin Level 3.9 3.5-5.0 g/dL Alkaline Phosphatase 107 39-117 U/L Complete Blood Count Auto Di ff (Not yet reviewed by provider) Interpretation:left message Performing Lab:[facility], [address] [place] [phone] Notes/Report: White Blood Count 8.0 4.8-10.8 X10*3/uL [...] te Reviewed date:07/29/2025 04:27:40 PM Interpretation: Performing Lab:[facility], [address] [place] [phone] Notes/Report: Erythrocyte Sedimentation Rate 15 1-20 MM/HR Patients with polycythemia and many hemoglobin abnormalities may have depressed sed rates whereas patients with anemia may have elevated sed rates. Comprehensive Met. Panel Reviewed date:07/29/2025 04:26:17 PM Interpretation: Performing Lab:[facility], [address] [place] [phone] Notes/Report: Sodium 138 135-145 mmol/L Potassium 4.1 [...] Protein Reviewed date:07/29/2025 04:27:57 PM Interpretation: Performing Lab:[facility], [address] [place] [phone] Notes/Report: C Reactive Protein 1.19 < or = 0.50 mg/dL Complete Blood Count Auto Di ff Reviewed date:07/30/2025 06:15:40 PM Interpretation: Performing Lab:[facility], [address] [place] [phone] Notes/Report: White Blood Count 6.9 4.8-10.8 X10*3/uL Red Blood Count 2.67 4.60-5.80 X10*6/uL Hemoglobin 7.8 14.0-18.0 g/dl Hematocrit 23.3 42.0-52.0 % Mean Corpuscular Volume 87.3 80.0-98.0 fL Mean Corpuscular Hemoglobin 29.2 27.0-33.0 pg Mean Corpuscular HGB Conc 33.5 31.0-36.0 g/dl Red Cell Distribution Width 15.4 11.0-16.0 % Platelet Count 209 160-400 X10*3/uL Mean Platelet Volume 9.0 9.4-12.4 fL Neutrophils Percent Auto 61.2 45-73 % Imm Gran Pct Auto 0.3 0.0-0.4 % Lymphocytes Percent Auto 26.2 20-40 % Monocytes Percent Auto 9.4 2-11 % Eosinophils Percent Auto 2.5 0-4 % Basophils Percent Auto 0.4 0-2 % NRBC Pct Auto 0.0 0.0-0.2 /100WBC Neutrophils Absolute Auto 4.2 2.0-8.3 x10*3/uL Imm Gran Abs Auto 0.02 0.00-0.03 X10*3/uL Lymphocytes Absolute Auto 1.8 1.2-4.9 X10*3/uL Monocytes Absolute Auto 0.7 0.1-1.2 X10*3/uL Eosinophils Absolute Auto 0.2 0.0-0.4 X10*3/uL Basophils Absolute Auto 0.0 0.0-0.2 X10*3/uL NRBC Abs Auto 0.000 0.0-0.012 X10*3/uL Prothrombin Time INR Reviewed date:07/30/2025 06:14:59 PM Interpretation: Performing Lab:[address] [phone] Notes/Report: Prothrombin Time 20.4 11.2-13.5 SEC INTERNATIONAL NORM RATIO 1.7 0.9-1.1 INTERNATIONAL NORMALIZED RATIO (INR) REFERENCE RANGES Reference Range For patients not on anticoagulant therapy: 0.9 - 1.1 INR ranges for oral anticoagulant therapy: For prevention and treatment of venous thrombosis and pulmonary embolism: 2.0 - 3.0 For acute myocardial infarction with aspirin therapy: 2.0 - 3.0 For acute myocardial infarction without aspirin therapy: 3.0 - 4.0 For patients with mechanical prosthetic heart valves: 2.5 - 3.5 Partial Thromboplastin Time Reviewed date:07/30/2025 06:14:46 PM Interpretation: Performing Lab:[facility], [address] [place] [phone] Notes/Report: Partial Thromboplastin Time 40.8 26.7-34.1 SEC Comprehensive Met. Panel Reviewed date:07/30/2025 06:14:23 PM Interpretation: Performing Lab:[facility], [address] [place] [phone] Notes/Report: Sodium 137 135-145 mmol/L Potassium 4.3 3.3-5.1 mmol/L Chloride 104 96-108 mmol/L Carbon Dioxide 25 22-29 mmol/L Anion Gap 12 12-20 Blood Urea Nitrogen 25 9-16 mg/dL Creatinine 1.05 0.5-1.4 mg/dL Creatinine Clr Calc Pharmacy 68.9 eGFR (calculated from the MDRD study equation) and eCrCl (calculated from the Cockcroft-Gault equation) are based on different parameters and may not yield comparable results. If eCrCl result is absurd, please check patient's height/weight. Estimated Glomerular Filt Rate > 60 Chronic Kidney Disease: Estimated GFR < 60 mL/min/1.73m2 Severe Kidney Disease: Estimated GFR < 15 mL/min/1.73m2 Glucose Random 104 60-115 mg/dL Calcium 8.8 8.4-10.2 mg/dL Bilirubin Total 0.4 0.0-1.0 mg/dL Aspartate Amino Transferase 32 5-37 U/L Alanine Aminotransferase 37 0-40 U/L Total Protein 6.9 6.5-8.0 g/dL Albumin Level 4.1 3.5-5.0 g/dL Alkaline Phosphatase 118 39-117 U/L Type and Screen Reviewed date:07/30/2025 06:40:52 PM Interpretation: Performing Lab:[facility], [address] [place] [phone] Notes/Report: Blood Type AP Antibody Screen NEGATIVE Reason For Referral Reason HEMATURIA NEEDS A [...] 8 hrs for 10 day(s) 05/15/2018 Not-Taking Cartia XT 120 MG 1 capsule Orally Onc e a day for 30 day(s) Active Xarelto 20 MG 1 tablet with food Orally Once a day Active Linezolid 600 MG 1 tablet Orally ever y 12 hrs Active Indomethacin 50 MG 1 capsule with [...] capsule Orally O nce a day Active Valtrex 1 GM 1 [...] Status W/U Status Risk Notes Problem Anemia (233429800) Anemia (D64.9) Active confir med Problem 703833901 Neuropathy (G62.9) Active confirmed Problem 37312132 Prostatism (N40.0) Active confirmed Problem 213930241 Paroxysmal atria l fibrillation (I48.0) Active confirmed Problem 627925366 Essential tremor (G25.0) Active confirmed Problem 507383483282086 Erectile dysfunc tion due to arterial insufficiency (N52.01) Active confirmed Problem 49615895 Mitral valve dis order (I05.9) Active confirmed Problem Pure hypercholesterolemia (637835606) Elevated LDL cholesterol level (E78.0) Active confirmed Problem 063059936 Non-rheumatic mi tral regurgitation (I34.0) Active confirmed Problem 803140974 Pure hypercholesterolemia (E78.00) Active confirmed Problem 813431473 Elevated PSA (R97.20) Active confirme d Problem 165034681 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 confirmed Problem 47076582 Hydronephrosis 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) Active confirmed Problem Melanoma of skin (52921739) Melanoma of skin (C43.9) Active confirmed Problem 242490429 Elevated serum cholesterol (E78.9) Active confirmed Problem Anemia (122200998) Acute anemia (D64.9) Active confirmed Problem 489788364 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 Vital Signs Blood pressure diastolic 60 mm Hg 07/30/2025 Height 70.50 in 07/30/2025 Blood pressure systolic 98 mm Hg 07/30/2025 Weight 200 lbs 07/30/2025 BMI 28.29 kg/m2 07/30/2025 Encounters Encounter Location Date Provider Diagnosis Richard Castro MD [address] [place] [id number] 07/05/2025 Richard Castro Elevated PSA R97.20 ; Encounter for administration of vaccine Z23 and Pure hypercholesterolemia E78.00 Richard Castro MD [address] [place] [id number] 07/30/2025 Richard Castro Acute anemia D64.9 ; Paroxysmal atrial fibrillation I48.0 ; 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 C85.88 and Hematuria R31.9 Richard Castro MD [address] [id number] 12/24/2024 Richard Castro Mass in neck R22.1 ; Right shoulder pain, unspecified chronicity M25.511 and Preop examination Z01.818 Richard Castro MD [address] [place] [id number] 07/18/2025 Richard Castro Hematuria R31.9 ; El evated PSA R97.20 ; Colon cancer screening Z12.11 ; Paroxysmal atrial fibrillation I48.0 ; Melanoma of skin C43.9 ; Pure hypercholesterolemia E78.00 and Depression screening Z13.31 Richard Castro MD [address] [place] [id number] 01/15/2025 Richard Castro MD [address] [place] [id number] 02/28/2025 Richard Castro Assessments Encounter Date Diagnosis (ICD Code) Assessment Notes Treatment Notes Treatment Clinical Notes Section Notes 07/05/2025 Elevated PSA (ICD-10 - R97.20) 07/05/2025 Encounter for administration of vaccine (ICD-10 - Z23) 07/30/2025 Acute anemia (ICD-10 - D64.9) will send to the er and have him evaluated/ seems mostlikely related to the urinary blleeding. stool is negative today and he has not seen any bleeding.. seems it may have been from the bladder. 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 had large amounts of blood in the bowl. 07/18/2025 Paroxysmal atrial fibrillation (ICD-10 - I48.0) [...] Name:Richard Chatman ier, 08/26/2025 01:45:00 PM, [address] [facility], [address], [place], [place], [phone], Provider Name:Richard Chatman ier, 07/07/2026 07:15:00 AM, [address] [facility], [address], [place], [place], [phone], Provider Name:Richard Chatman ier, 07/18/2026 01:00:00 PM, [address] [facility], Suite [facility], [place], [place], [phone], Insurance Providers Payer Name Payer Address Payer Phone Subscriber Number Group Number Insured Name Patient Relationship to Insured Coverage Start Date Coverage End Date MEDICARE NH[address] [place] [address] [id number] Joselito Hurd Self - patient is the insured MEDEX BCBS OF [facility] [id number] [place] [address] [id number] Joselito Hurd Self - patient is the [...]
--- NOTE | 2025-07-30 21:06 | PC.NURSE ---
pts lung sounds clear bilaterally, VSS 15 minute blood transfusion started at this time.
[2025-07-30 21:15] LABS: Appearance Urine Clear; Glucose Urine UA Negative (Negative); PH 5.5 (5.0-9.0); Specific Gravity - Urine 1.025 (1.005-1.025)
--- NOTE | 2025-07-30 23:28 | PC.NURSE ---
post blood transfusion, pt states he feels well with no complaints. provider aware
[2025-07-31 00:32] VITALS: BP 113/64; PULSE 64; RESP 18; TEMP 36.7; O2SAT 98
== END 2025-07-31 00:33 | disposition home or self-care (01) ==
PROVIDERS: Nurse Practitioner; Physician Assistant; Emergency Provider Emergency Medicine; PCP Internal Medicine
DX: R22.31 Localized swelling, mass and lump, right upper limb (principal); D64.9 Anemia, unspecified; I45.10 Unspecified right bundle-branch block; I44.0 Atrioventricular block, first degree; I48.91 Unspecified atrial fibrillation; Z79.01 Long term (current) use of anticoagulants
CPT/HCPCS: 36415; 36430; 76882; 80053; 81001; 85025; 85610; 85730; 86850; 86900; 86901; 86923; 93005; 99285; P9016

== ENCOUNTER → 2025-07-30 20:02 | Outpatient (BNV) | payer MEDICARE, SELFPAY | PROVIDERS: Emergency Provider Emergency Medicine; PCP Internal Medicine; Visit Provider Student in an Organized Health Care Education/Training Program | DX: R22.31 Localized swelling, mass and lump, right upper limb (principal) | CPT/HCPCS: 76882 ==

== ENCOUNTER → 2025-07-30 20:08 | Outpatient (BNV) | payer MEDICARE, SELFPAY | PROVIDERS: Emergency Provider Emergency Medicine; PCP Internal Medicine; Visit Provider Internal Medicine Cardiovascular Disease | DX: I44.0 Atrioventricular block, first degree (principal); I45.10 Unspecified right bundle-branch block | CPT/HCPCS: 93010 ==

== ENCOUNTER 2025-08-01 13:45 | Outpatient (AMB) | payer MEDICARE, SELFPAY ==
--- OUTSIDE RECORDS SUMMARY | 2024-07-03 03:30 | XMS_ITS ---
Author Organization Richard Castro MD Address [address] [place], [place] [phone] Care Team Providers Care Boat Rental Clerk Name Role Phone Richard Castro Primary Care Provider [phone] Results Component Value Reference Range Notes Complete Blood Count Auto Di ff Reviewed date:07/03/2024 08:00:30 PM Interpretation: Performing Lab:[facility], [address] [place] [phone] Notes/Report: White Blood Count 7.5 4.8-10.8 X10*3/uL Red Blood Count 4.15 4.60-5.80 X10*6/uL Hemoglobin 13.3 14.0-18.0 g/dl Hematocrit 39.1 42.0-52.0 % Mean Corpuscular Volume 94.2 80.0-98.0 fL Mean Corpuscular Hemoglobin 32.0 27.0-33.0 pg Mean Corpuscular HGB Conc 34.0 31.0-36.0 g/dl Red Cell Distribution Width 14.9 11.0-16.0 % Platelet Count 248 160-400 X10*3/uL Mean Platelet Volume 10.2 9.4-12.4 fL Neutrophils Percent Auto 64.9 45-73 % Imm Gran Pct Auto 0.3 0.0-0.4 % Lymphocytes Percent Auto 23.5 20-40 % Monocytes Percent Auto 8.3 2-11 % Eosinophils Percent Auto 2.5 0-4 % Basophils Percent Auto 0.5 0-2 % NRBC Pct Auto 0.0 0.0-0.2 /100WBC Neutrophils Absolute Auto 4.9 2.0-8.3 x10*3/u L Imm Gran Abs Auto 0.02 0.00-0.03 X10*3/uL Lymphocytes Absolute Auto 1.8 1.2-4.9 X10*3/u L Monocytes Absolute Auto 0.6 0.1-1.2 X10*3/uL Eosinophils Absolute Auto 0.2 0.0-0.4 X10*3/u L Basophils Absolute Auto 0.0 0.0-0.2 X10*3/uL NRBC Abs Auto 0.000 0.0-0.012 X10*3/uL Comprehensive [place]. Panel Fa st Reviewed date:07/03/2024 08:16:51 PM Interpretation: Performing Lab:[facility], [address] [place] [phone] Notes/Report: Sodium 138 135-145 mmol/L Potassium 4.1 3.3-5.1 mmol/L Chloride 108 96-108 mmol/L Carbon Dioxide 26 22-29 mmol/L Anion Gap 8 12-20 Blood Urea Nitrogen 17 9-16 mg/dL Creatinine 0.99 0.5-1.4 mg/dL Estimated Glomerular Filt Rate > 60 Chronic Kidney Disease: Estimated GFR < 60 mL/min/1.73m2 Severe Kidney Disease: Estimated GFR < 15 mL/min/1.73m2 Glucose Fasting 95 60-99 mg/dL Calcium 8.9 8.4-10.2 mg/dL Bilirubin Total 0.7 0.0-1.0 mg/dL Aspartate Amino Transferase 41 5-37 U/L Alanine Aminotransferase 29 0-40 U/L Total Protein 6.9 6.5-8.0 g/dL Albumin Level 3.8 3.5-5.0 g/dL Alkaline Phosphatase 89 39-117 U/L Lipid Panel Reviewed date:07/03/2024 08:01:49 PM Interpretation: Performing Lab:[facility], [address] [place] [phone] Notes/Report: Triglycerides 98 <150 mg/dL Desirable Triglyceride: less than 150 mg/dL Borderline High Triglyceride 150-199 mg/dL High Triglyceride: 200-499 mg/dL Very High Triglyceride: greater than or equal to 5OO mg/dL Cholesterol 201 <200 mg/dL Desirable Cholesterol: less than 200 mg/dL Borderline High Cholesterol: 200-239 mg/dL High Cholesterol: greater than 239 mg/dL LDL Cholesterol Calculated 140 <100 mg/dL Desirable LDL: less than 100 mg/dL Near Optimal/Above Optimal LDL: 110-129 mg/dL Borderline High LDL: 130-159 mg/dL High LDL: 160-189 mg/dL Very High LDL: greater than or equal to 190 mg/dL HDL Cholesterol 42 >40 mg/dL Desirable HDL: greater than 40 mg/dL Note: This HDL assay may give artificially low results in patients with liver disease. PSA,Total (Free>4and<10) Reviewed date:07/17/2024 04:52:07 PM Interpretation:see back 07-17-2024 Performing Lab:[facility], [address] [place] [phone] Notes/Report: PSA,Total (Free>4and<10) 5.94 0.00-4.00 ng/mL PSA methodology: [employer] i Chemiluminescent Microparticle Immunoassay (CMIA) UA ClnCatch+Micro w/rflx Cul t Reviewed date:07/03/2024 08:03:57 PM Interpretation: Performing Lab:[facility], [address] [place] [phone] Notes/Report: Urine, Clean Catch Color Urine Yellow Appearance Urine Clear PH 5.5 5.0-9.0 Glucose Urine UA Negative Negative mg/dL Urine Blood Negative Negative Specific [place] - Urine 1.015 1.005-1.025 Urine Protein Negative Neg-Trace mg/dL Urine Ketones Negative Negative mg/dL Nitrite Urine Negative Negative Leukocyte Esterase Urine Negative Negative RBC Urine 0-2 0-2 /HPF WBC Urine 0-5 0-5 /HPF Squamous Epithelial Cell Urine 0-2 0-2 /HPF Bacteria Urine None Seen None Seen Hyaline Casts Urine 0-2 0-2 /LPF REASON FOR VISIT FASTING LABS Medications Medication SIG (Take, Route, Frequency, Duration) Notes Start Date End Date Status Staxyn 10 MG 1 tablet on the tongue and allow to dissolve as needed Orally Once a day Not-Taking Indomethacin 50 MG 1 capsule with food or milk Orally Three times a day for 10 days 10/07/2016 Not-Taking Amoxicillin 500 MG 1 capsule Orally every 8 hrs for 10 day(s) 05/15/2018 Not-Taking Zithromax Z-Khadar 250 MG 2 tablet on the f irst day, then 1 tablet daily for 4 days Orally Once a day for 5 day(s) 01/23/2024 Active predniSONE 10 MG 1 tablet with food o r milk Orally 4 tabs for 3 days,3tabs for 3 days, 2 tabs for 3 days, and 1 tab for 3 days for 14 days 01/23/2024 Active Cyclobenzaprine HCl 5 MG 1 tablet as nee ded Orally Three times a day for 10 days 02/27/2019 Not-Taking Tylenol Extra Strength 500 MG 3 tablets orally every 6 hrs Not-Taking Ibuprofen 800 MG 1 tablet with food o r milk as needed Orally Three times a day for 30 days 02/27/2019 Not-Taking Propranolol HCl ER 80 MG TAKE ONE CAPSUL E BY MOUTH ONCE DAILY for 30 Active Valtrex 1 GM 1 tablet Orally 3 times a day for 7 days 01/13/2021 Not-Taking Cartia XT 120 MG 1 capsule Orally Onc e a day for 30 day(s) Active Flecainide Acetate 150 MG 1 tablet Orall y every 12 hrs Active Tamsulosin HCl 0.4 MG 1 capsule Orally O nce a day Active Co Q 10 100 MG 1 capsule with a nils l Orally Once a day Active Immunizations Vaccine Route Administration Date Status Comme nts Influenza High Dose IM Intramuscular 07/03/2024 Administer ed Encounters Encounter Location Date Provider Diagnosis Richard Castro MD [address] [place], [place] [phone] 07/03/2024 Richard Castro Elevated PSA R97.20 ; Encounter for immunization Z23 and Pure hypercholesterolemia E78.00 Assessments Encounter Date Diagnosis (ICD Code) Assessment Notes Treatment Notes Treatment Clinical Notes Section Notes 07/03/2024 Elevated PSA (ICD-10 - R97.20) 07/03/2024 Encounter for immunization (ICD-10 - Z23) 07/03/2024 Pure hypercholesterolemia (ICD-10 - E78.00) Plan Of Treatment Next Appt Details Provider Name:Richardhelio Chatman ier, 08/02/2025 07:30:00 AM, [address] [place] [address], [address], [phone], Provider Name:Richard Jose Lurdes ier, 08/26/2025 01:45:00 PM, [address] [place] [address], [address], [phone], Provider Name:Richard Garcia Lurdes ier, 07/07/2026 07:15:00 AM, [address] [place] [address], [address], [phone], Provider Name:Richard Garcia Lurdes ier, 07/18/2026 01:00:00 PM, [address] [place] [address], [address], [phone], Progress Notes * Joselito HURD ADOB:[birth year] (75 yo M)Acc No.[id number]:07/03/2024 Progress Note Patient: Joselito HANNA Provider: Del Castro MD :1950 A ge:74 Y S ex:Male Date:07/03/2024 Address:[address] [place], [place] [phone] Subjective: * Chief Complaints: * 1 . FASTING LABS. * Medical History: * Medications: T aking Cartia XT 120 MG Capsule Extended Release 24 Hour 1 capsule Orally Once a day , Taking Co Q 10 100 MG Capsule 1 capsule with a meal Orally Once a day , Taking Flecainide Acetate 150 MG Tablet 1 tablet Orally every 12 hrs , Taking Tamsulosin HCl 0.4 MG Capsule 1 capsule Orally Once a day , Taking Propranolol HCl ER 80 MG Capsule Extended Release 24 Hour TAKE ONE CAPSULE BY MOUTH ONCE DAILY , Taking predniSONE 10 MG Tablet 1 tablet with food or milk Orally 4 tabs for 3 days,3tabs for 3 days, 2 tabs for 3 days, and 1 tab for 3 days , Taking Zithromax Z-Khadar 250 MG Tablet 2 tablet on the first day, then 1 tablet daily for 4 days Orally Once a day , Not- Taking/PRN Valtrex 1 GM Tablet 1 tablet Orally 3 times a day , Not-Taking/PRN Tylenol Extra Strength 500 MG Tablet 3 tablets orally every 6 hrs , Not-Taking/PRN Ibuprofen 800 MG Tablet 1 tablet with food or milk as needed Orally Three times a day , Not- Taking/PRN Cyclobenzaprine HCl 5 MG Tablet 1 tablet as needed Orally Three times a day , Not-Taking/PRN Amoxicillin 500 MG Capsule 1 capsule Orally every 8 hrs , Not-Taking/PRN Staxyn 10 MG Tablet Dispersible 1 tablet on the tongue and allow to dissolve as needed Orally Once a day , Not-Taking/PRN Indomethacin 50 MG Capsule 1 capsule with food or milk Orally Three times a day Objective: * Vitals: Assessment: * Assessment: 1. E ncounter for immunization - Z23 (Primary) 2 . E levated PSA - R97.20? 3. P ure hypercholesterolemia - E78.00 Plan: * Treatment: 2. P ure hypercholesterolemia L AB: Complete Blood Count Auto Diff (Collection Date & Time - 07/03/2024 08:30 AM) L AB: Comprehensive [place]. Panel Fast (Collection Date & Time - 07/03/2024 08:30 AM) L AB: Lipid Panel (Collection Date & Time - 07/03/2024 08:30 AM) L AB: PSA,Total (Free>4and<10) (Collection Date & Time - 07/03/2024 08:30 AM) L AB: UA ClnCatch+Micro w/rflx Cult (Collection Date & Time - 07/03/2024 08:30 AM) * Immunizations: Influenza High Dose : 0.5 mL (Dose No:1) (Route: Intramuscular) given by Evelyn Blackwood , Office Staff on Left Deltoid * Procedure Codes: 9 0662 FLU VACC PRSV FREE INC ANTIG, G0008 ADMN FLU VAC NO FEE SCHED SAME DAY, [address]2810 VENIPUNCT, ROUTINE* * * The named appointment provid er may or may not be the originator of this progress note, and it is not deemed complete until electronically signed by the appointment provider. Sign off status: Pending * Provider: Del Castro MD Date: 09/02/2023 Generated for Per deleon/Amandeep/Maninder on: 10/02/2024 05:55 PM EST
--- OUTSIDE RECORDS SUMMARY | 2024-07-17 08:30 | XMS_ITS ---
Author Organization Richard Castro MD Address [address] [place] [phone] Care Team Providers Care Patient Intake Representative Name Role Phone Richard Castro Primary Care Provider Allergies No Known Allergies Results Component Value Reference Range Notes Occult Blood, Stool, Guaiac Reviewed date:07/17/2024 02:27:21 PM Interpretation:Negative Performing Lab: Notes/Report: Negative Occult Blood, Stool, Guaiac Neg REASON FOR VISIT review labs, CBACK PSA Medications Medication SIG (Take, Route, Frequency, Duration) Notes Start Date End Date Status Tamsulosin HCl 0.4 MG 1 capsule Orally O nce a day Active Flecainide Acetate 150 MG 1 tablet Orall y every 12 hrs Active Staxyn 10 MG 1 tablet on the tongue and allow to dissolve as needed Orally Once a day Not-Taking Amoxicillin 500 MG 1 capsule Orally every 8 hrs for 10 day(s) 05/15/2018 Not-Taking Cyclobenzaprine HCl 5 MG 1 tablet as nee ded Orally Three times a day for 10 days 02/27/2019 Not-Taking Co Q 10 100 MG 1 capsule with a nils l Orally Once a day Active Ibuprofen 800 MG 1 tablet with food o r milk as needed Orally Three times a day for 30 days 02/27/2019 Not-Taking Tylenol Extra Strength 500 MG 3 tablets orally every 6 hrs Not-Taking Valtrex 1 GM 1 tablet Orally 3 times a day for 7 days 01/13/2021 Not-Taking Propranolol HCl ER 80 MG TAKE ONE CAPSUL E BY MOUTH ONCE DAILY for 30 Active Cartia XT 120 MG 1 capsule Orally Onc e a day for 30 day(s) Active Indomethacin 50 MG 1 capsule with food or milk Orally Three times a day for 10 days 10/07/2016 Not-Taking Social History Tobacco Use: Social History Observation Description Date Details (start date - stop date) Former Smoker NA - NA Tobacco Use/Smoking Question Answer Notes Patient is [...] Never (0 point) Points 1 Interpretation Negative Vital Signs Blood pressure systolic 118 mm Hg 07/17/20 24 Blood pressure diastolic 74 mm Hg 024 Height 70.50 in 07/17/2024 Weight 201 lbs 07/17/2024 BMI 28.43 kg/m2 07/17/2024 weight is up 5 pounds since 01-23-24 Encounters Encounter Location Date Provider Diagnosis Richard Castro MD [address] [place] [address] [address] [place], [place] [phone] 07/17/2024 Richard Castro Essential tremor G25 .0 ; Pure hypercholesterolemia E78.00 ; Elevated PSA R97.20 ; Paroxysmal atrial fibrillation I48.0 ; Colon cancer screening Z12.11 and Depression screening Z13.31 Assessments Encounter Date Diagnosis (ICD Code) Assessment Notes Treatment Notes Treatment Clinical Notes Section Notes 07/17/2024 Essential tremor (IC D-10 - G25.0) 07/17/2024 Pure hypercholesterolemia (ICD-10 - E78.00) 07/17/2024 Elevated PSA (ICD-10 - R97.20) had been over 6 4 y ears ago followed by urology. need notes from last visit/ notes will be requested 07/17/2024 Paroxysmal atrial fibrillation (ICD-10 - I48.0) have warned him of the risk of stroke and he should be on anticoag. he is going to think about it and get back to me or maybe wait/ get last note from [facility] 07/17/2024 Colon cancer screeni ng (ICD-10 - Z12.11) guaiac negative 07/17/2024 Depression screening (ICD-10 - Z13.31) negative screen Plan Of Treatment Medication Medication Name Sig Start Date Stop Date Notes Tamsulosin HCl 0.4 MG 1 capsule Orally Once a day Flecainide Acetate 150 MG 1 tablet Orally every 12 hrs Treatment Notes Assessment Notes Elevated PSA had been over 6 4 y ears ago followed by urology. need notes from last visit/ notes will be requested Paroxysmal atrial fibrillation have warn ed him of the risk of stroke and he should be on anticoag. he is going to think about it and get back to me or maybe wait/ get last note from [facility] Colon cancer screening guaiac negative Depression screening negative screen Next Appt Details Follow Up: 1 Year, Reason: Provider Name:Richard escamilla, 08/02/2025 07:30:00 AM, [address] [place] [address], [address], [phone], Provider Name:Richard escamilla, 08/26/2025 01:45:00 PM, [address] [place] [address], [address], [phone], Provider Name:Richard escamilla, 07/07/2026 07:15:00 AM, [address] [place] [address], [address], [phone], Provider Name:Richard escamilla, 07/18/2026 01:00:00 PM, [facility], [address], [place], [place], [phone], Progress Notes * Joselito HURD ADOB:[birth year] (74 yo M)Acc No.[id number]:07/17/2024 Patient: Joselito Garcia Provider: Del Castro MD :1950 A ge:74 Y S ex:Male Date:07/17/2024 Address:[address] [place], [place] [address] Subjective: * Chief Complaints: * R eview labsCBACK PSA * HPI: D epression Screening: PHQ-9 L ittle interest or pleasure in doing things N ot at all, F eeling down, depressed, or hopeless N ot at all, T rouble falling or staying asleep, or sleeping too much N ot at all, F eeling tired or having little energy N ot at all, P oor appetite or overeating N ot at all, F eeling bad about yourself or that you are a failure, or have let yourself or your family down N ot at all, T rouble concentrating on things, such as reading the newspaper or watching television N ot at all, M oving or speaking so slowly that other people could have noticed; or the opposite, being so fidgety or restless that you have been moving around a lot more than usual N ot at all, T houghts that you would be better off or of hurting yourself in some way N ot at all, T otal Score 0 . I nterpretation and Intervention D epression Screening Findings N egative, F ollow-Up for Depression : review of PHQ-9 found negative result, no follow-up needed. C ommunication Needs: Communication Needs D oes the patient have a hearing impairment Y es, I f yes, what is the hearing impairment? H aneudy of hearing, Hearing Aids, D oes the patient have a vision impairment? Y es, I f yes, what is the vision impairment? G lasses, D oes the patient have a cognition impairment? N o. F all Risk: History H ave you had any falls with injury in the past year? N o, H ave you had two or more falls in the past year? N o. S NOAH Questions: SDOH Questions I n the past year have you been worried about losing housing? N o, I n the past year have you or any family members you live with been unable to get any of the following when it was really needed? Check all that apply: N one. S ymptom(s): patient is a 74 yo male here for visit with review of recent labs and follow up of chronic issues. * ROS: G eneral/Constitutional: Patient denies f atigue , headache. C hange in appetite?denies. C hills d enies. F ever d enies. O phthalmologic: Blurred vision d enies. D ischarge d enies. P ain d enies. E NT: Patient denies d ecreased sense of smell , any loss of taste , sore throat. D ecreased hearing d enies. S ore throat d enies. S wollen glands d enies. E ndocrine: Cold intolerance d enies. E xcessive thirst d enies. H eat intolerance d enies. W eight loss d enies. R espiratory: Cough d enies. S hortness of breath at rest d enies. S hortness of breath with exertion d enies. W heezing d enies. C ardiovascular: Chest pain at rest d enies. C hest pain with exertion?denies. I rregular heartbeat d enies. S hortness of breath d enies. ? G astrointestinal: Abdominal pain d enies. C hange in bowel habits d enies. D iarrhea d enies. N ausea d enies. R ectal bleeding d enies. V omiting d enies . G enitourinary: Blood in urine d enies. D ifficulty urinating d enies. F requent urination d enies. M usculoskeletal: Patient denies m uscle aches. P ainful joints d enies. W eakness d enies. P eripheral Vascular: Patient denies r ed and blue toes. S kin: Dry skin d enies. I tching d enies. D enies?Mole(s), changes in moles, new moles or any lesions of concern. D enies P hotosensitivity. R sahra d enies. N eurologic: Dizziness d enies. F ainting d enies. H eadache?denies. * Medical History: * Surgical History: * Hospitalization/Major Diagno stic Procedure: * Family History: F ather: 72 yrs, diagnosed with Cancer. M other: 99 yrs. 1 brother(s) , 1 sister(s) . 2 son(s) , 1 daughter(s) . . Denies mental health/substance abuse family history youngest son substance abuse, No pertinent family medical history. * Social History: T obacco Use: T obacco Use/Smoking P atient is a f ormer smoker, H ow long has it been since you last smoked? > 10 years, A dditional Findings: Tobacco Non-User C urrent non-smoker, currently using no form of tobacco. D rugs/Alcohol: A lcohol Screen D id you have a drink containing alcohol in the past year? Y es, H ow often did you have a drink containing alcohol in the past year? M onthly or less (1 point), H ow many drinks did you have on a typical day when you were drinking in the past year? 1 or 2 drinks (0 point), H ow often did you have 6 or more drinks on one occasion in the past year? N ever (0 point), P oints 1 , I nterpretation N egative. M iscellaneous: C affeine: yes, frequency:, 1-2 cups per day. Children: yes. no Community involvements. Exercise: yes, Eliptical 4 times a week for 20 minutes. Home smoke detector use: yes. Housing: owning. Living with: spouse. Marital status: . Occupation: Retired. Pets: none. no Travel outside of the [place]. * Medications: T akingCartia XT 120 MG [...] Verified] Objective: * Vitals: H t: 70.50, Wt:201, BMI:28.43, BP:118/74 weight is up 5 pounds since 01-23-24. * P ast Orders: L ab:Comprehensive [place]. Panel Fast (Order Date - 07/03/2024) (Collection Date - 07/03/2024) Value Reference Range Sodium 138 135-145 - mmol/L Bilirubin Total 0.7 0.0-1.0 - mg/dL Aspartate Amino Transferase 41 H 5-37 - U/L Alanine Aminotransferase 29 0-40 - U/L Total Protein 6.9 6.5-8.0 - g/dL Albumin Level 3.8 3.5-5.0 - g/dL Alkaline Phosphatase 89 39-117 - U/L Potassium 4.1 3.3-5.1 - mmol/L Chloride 108 96-108 - mmol/L Carbon Dioxide 26 22-29 - mmol/L Anion Gap 8 L 12-20 - Blood Urea Nitrogen 17 H 9-16 - mg/dL Creatinine 0.99 0.5-1.4 - mg/dL Estimated Glomerular Filt Rate > 60 - Glucose Fasting 95 60-99 - mg/dL Calcium 8.9 8.4-10.2 - mg/dL L ab:Lipid Panel (Order Date - 07/03/2024) (Collection Date - 07/03/2024) Value Reference Range Triglycerides 98 <150 - mg/dL Cholesterol 201 H <200 - mg/dL LDL Cholesterol Calculated 140 H <100 - mg/dL HDL Cholesterol 42 >40 - mg/dL L ab:UA ClnCatch+Micro w/rflx Cult (Order Date - 07/03/2024) (Collection Date - 07/03/2024) Value Reference Range Color Urine Yellow - Appearance Urine Clear - PH 5.5 5.0-9.0 - Glucose Urine UA Negative Negative - mg/dL Urine Blood Negative Negative - Specific [place] - Urine 1.015 1.005-1.025 - Urine Protein Negative Neg-Trace - mg/dL Urine Ketones Negative Negative - mg/dL Nitrite Urine Negative Negative - Leukocyte Esterase Urine Negative Negative - RBC Urine 0-2 0-2 - /HPF WBC Urine 0-5 0-5 - /HPF Squamous Epithelial Cell Urine 0-2 0-2 - /HP F Bacteria Urine None Seen None Seen - Hyaline Casts Urine 0-2 0-2 - /LPF L ab:Complete Blood Count Auto Diff (Order Date - 07/03/2024) (Collection Date - 07/03/2024) Value Reference Range White Blood Count 7.5 4.8-10.8 - X10*3/uL Red Blood Count 4.15 L 4.60-5.80 - X10*6/uL Hemoglobin 13.3 L 14.0-18.0 - g/dl Hematocrit 39.1 L 42.0-52.0 - % Mean Corpuscular Volume 94.2 80.0-98.0 - fL Mean Corpuscular Hemoglobin 32.0 27.0-33.0 - pg Mean Corpuscular HGB Conc 34.0 31.0-36.0 - g/ dl Red Cell Distribution Width 14.9 11.0-16.0 - % Platelet Count 248 160-400 - X10*3/uL Mean Platelet Volume 10.2 9.4-12.4 - fL Neutrophils Percent Auto 64.9 45-73 - % Imm Gran Pct Auto 0.3 0.0-0.4 - % Lymphocytes Percent Auto 23.5 20-40 - % Monocytes Percent Auto 8.3 2-11 - % Eosinophils Percent Auto 2.5 0-4 - % Basophils Percent Auto 0.5 0-2 - % NRBC Pct Auto 0.0 0.0-0.2 - /100WBC Neutrophils Absolute Auto 4.9 2.0-8.3 - x10* 3/uL Imm Gran Abs Auto 0.02 0.00-0.03 - X10*3/uL Lymphocytes Absolute Auto 1.8 1.2-4.9 - X10* 3/uL Monocytes Absolute Auto 0.6 0.1-1.2 - X10*3/ uL Eosinophils Absolute Auto 0.2 0.0-0.4 - X10* 3/uL Basophils Absolute Auto 0.0 0.0-0.2 - X10*3/ uL NRBC Abs Auto 0.000 0.0-0.012 - X10*3/uL * Examination: G eneral Examination: GENERAL APPEARANCE: w ell developed, well nourished, in no acute distress. HEAD: n ormocephalic, atraumatic. EYES: p upils equal, round, reactive to light and accommodation, sclera non-icteric. EARS: n ormal. ORAL CAVITY: m ucosa moist. THROAT: c lear. NECK/THYROID: n david supple, full range of motion, no cervical lymphadenopathy, no bruits. SKIN: w arm and dry, no suspicious lesions. HEART: r egular rate and rhythm, S1, S2 normal, no murmurs.? LUNGS: c lear to auscultation bilaterally. ABDOMEN: s oft, nontender, nondistended, bowel sounds present, normal, no organomegaly , no masses palpable. RECTAL EXAM: n ormal tone, no external hemorrhoids, no masses palpable, prostate normal, stool guaiac negative. MALE GENITOURINARY: u ncircumcised , testes descended bilaterally , no testicular mass. EXTREMITIES: n o clubbing, cyanosis, or edema. NEUROLOGIC: n onfocal, motor strength normal upper and lower extremities, sensory exam intact. Assessment: * Assessment: 1. E ssential tremor - G25.0 (Primary) 2 . P ure hypercholesterolemia - E78.00 3 .?Elevated PSA - R97.20 4 . P aroxysmal atrial fibrillation - I48.0 5 . C olon cancer screening - Z12.11 6 . D epression screening - Z13.31 Plan: * Treatment: 2. P aroxysmal atrial fibrillation Continue Flecainide Acetate Tablet, 150 MG, 1 tablet, Orally, every 12 hrs. Notes: have warned him of the risk of stroke and he should be on anticoag. he is going to think about it and get back to me or maybe wait/ get last note from [facility] 3. C olon cancer screening L AB: Occult Blood, Stool, Guaiac N egative Value Reference Range O ccult Blood, Stool, Guaiac Neg Notes: guaiac negative??4.?Depression screening? Notes: negative screen?? * Procedure Codes: 8 2270 TEST FOR BLOOD, FECES * Follow Up: 1 Year * * Sign off status: Completed true * Provider: Del Castro MD Date: 09/17/2023 Generated for Per deleon/Amandeep/Kendricksmitting on: 10/02/2024 05:55 PM EST History and Physical Notes * HPI (History of Present Illness) Category Sub-Category Detail Notes Category Not es Symptom(s) patient is a 74 yo male here for visit with review of recent labs and follow up of chronic issues. Depression Screening PHQ-9 Little inte rest or pleasure in doing things: Not at all Feeling down, depressed, or hopeless: No t at all Trouble falling or staying asleep, or sl eeping too much: Not at all Feeling tired or having little energy: N ot at all Poor appetite or overeating: Not at all Feeling bad about yourself o r that you are a failure, or have let yourself or your family down: Not at all Trouble concentrating on thi ngs, such as reading the newspaper or watching television: Not at all Moving or speaking so slowly that other people could have noticed; or the opposite, being so fidgety or restless that you have been moving around a lot more than usual: Not at all Thoughts that you would be b abdon off or of hurting yourself in some way: Not at all Total Score: 0 Interpretation and Intervention Depression Berenice burdick Findings: Negative Follow-Up for Depression: : review of PH Q-9 found negative result, no follow-up needed SDOH Questions SDOH Questions In the past year have you been worried about losing housing?: No In the past year have you or any family members you live with been unable to get any of the following when it was really needed? Check all that apply:: None Fall Risk History Have you had any falls with injury i n the past year?: No Have you had two or more falls in the st year?: No Communication Needs Communication Needs Does the patient have a hearing impairment: Yes If yes, what is the hearing impairment?: Hard of hearing, Hearing Aids Does the patient have a vision impairmen t?: Yes If yes, what is the vision impairment?: Glasses Does the patient have a cognition impair ment?: No Examination Category Sub-Category Detail Notes Category Not es General Examination GENERAL APPEARANCE: well dev eloped, well nourished, in no acute distress HEAD: normocephalic, atrau matic EYES: pupils equal, round, reactive to light and accommodation, sclera non-icteric EARS: normal THROAT: clear NECK/THYROID: neck supple, full ra nge of motion, no cervical lymphadenopathy, no bruits HEART: regular rate and rhy thm, S1, S2 normal, no murmurs LUNGS: clear to auscultatio n bilaterally ABDOMEN: soft, nontender, non distended, bowel sounds present, normal, no organomegaly , no masses palpable NEUROLOGIC: nonfocal, motor stre ngth normal upper and lower extremities, sensory exam intact SKIN: warm and dry, no wanda picious lesions EXTREMITIES: no clubbing, cyanosi s, or edema MALE GENITOURINARY: uncircumcised , test es descended bilaterally , no testicular mass RECTAL EXAM: normal tone, no exte rnal hemorrhoids, no masses palpable, prostate normal, stool guaiac negative ORAL CAVITY: mucosa moist
--- OUTSIDE RECORDS SUMMARY | 2024-12-24 06:00 | XMS_ITS ---
Author Organization Richard Castro MD Address [address] [place], [place] [phone] Care Team Providers Care Lead Electrical Controls Engineer Name Role Phone Richard Castro Primary Care Provider [phone] Allergies No Known Allergies Results Component Value Reference Range Notes Complete Blood Count Auto Di ff Reviewed date:12/24/2024 05:16:55 PM Interpretation: Performing Lab:[facility], [address] [place] [phone] Notes/Report: White Blood Count 8.2 4.8-10.8 X10*3/uL [...] Panel Reviewed date:12/24/2024 05:16:08 PM Interpretation: Performing Lab:[facility], [address] [place] [phone] Notes/Report: Sodium 137 135-145 mmol/L Potassium 4.2 [...] 02-12-25 needs CBC BMP EKG going to Leak Inspector 01-01-25 to be cleared, Patientfound a mass [...] Location Date Provider Diagnosis Richard Castro MD [address] [place] [address] [address] [place], [place] [phone] 12/24/2024 Richard Castro Mass in neck R22.1 ; Right shoulder pain, unspecified chronicity M25.511 and Preop examination Z01.818 Assessments Encounter Date Diagnosis (ICD Code) Assessment Notes Treatment Notes Treatment Clinical Notes Section Notes 12/24/2024 Mass in neck (ICD-10 - R22.1) THE ORDER WAS FA[place]ED TO [facility], pending diagnsotic testing 12/24/2024 Right shoulder pain, unspecified chronicity (ICD-10 - M25.511) 12/24/2024 Preop examination (ICD-10 - Z01.818) at this point i don't find anything medically to prevent his shoulder surgery if cleared by his director of procurement Plan Of Treatment Treatment Notes Assessment Notes Mass in neck THE ORDER WAS FAXED TO [facility], pending diagnsotic testing Preop examination at this point i don' t find anything medically to prevent his shoulder surgery if cleared by his director of procurement Pending Test Test Name Order Date US soft tiss head and/or neck 12/24/2024 Next Appt Details Follow Up: after us, Reason: Provider Name:Richard escamilla, 08/02/2025 07:30:00 AM, [address] [place] [address], [address], [phone], Provider Name:Richard escamilla, 08/26/2025 01:45:00 PM, [address] [place] [address], [address], [phone], Provider Name:Richard escamilla, 07/07/2026 07:15:00 AM, [address] [place] [address], [address], [phone], Provider Name:Richard escamilla, 07/18/2026 01:00:00 PM, [address] [place] [address], [address], [phone], Progress Notes * Joselito HURD ADOB:[birth year] (74 yo M)Acc No.[id number]:12/24/2024 Patient: Joselito HANNA Provider: Del Castro MD :1950 A ge:74 Y S ex:Male Date:12/24/2024 Address:[address] [place], [place] [phone] Subjective: * Chief Complaints: * r shoulder DR Thomas 02-12-25 needs CBC BMP EKG going to Leak Inspector 01-01-25 to be clearedPatient found a mass [...] his right side. went to Urgent on [address] H [address] you had two or [...] his shoulder surgery if cleared by his director of procurement * Procedure Codes: 3 6415 VENIPUNCT, ROUTINE* * Follow Up: a fter us * * Sign off status: Completed true * Provider: Del Castro MD Date: 0 12/24/2024 Generated for Per deleon/Amandeep/eTransmitting on: 1 10/02/2024 05:54 PM EST History and Physical Notes * [...] his right side. went to Urgent on [address]. Have you had two or more [...]
--- OUTSIDE RECORDS SUMMARY | 2025-01-15 04:25 | XMS_ITS ---
Author Organization Richard Castro MD Address [address] [place] [phone] Care Team Providers Care E Business Project Manager Name Role Phone Richard Castro Primary Care Provider [phone] REASON FOR VISIT FYI US neck cancelled Encounters Encounter Location Date Provider Diagnosis Richard Castro MD 10 [facility] [address] [place] [phone] 01/15/2025 Richard Castro Plan Of Treatment Next Appt Details Provider Name:Richard escamilla, 08/02/2025 07:30:00 AM, [address] [place] [address], [address] [place] [address], [phone], Provider Name:Richard escamilla, 08/26/2025 01:45:00 PM, [address] [place] [address], [address] [place] [address], [phone], Provider Name:Richard Chatman ier, 07/07/2026 07:15:00 AM, [address], [address], [place], [phone], Provider Name:Richard Chatman ier, 07/18/2026 01:00:00 PM, [address], [address], [place], [phone], Progress Notes * Joselito HURD ADOB:[birth year] (74 yo M)Acc No.[id number]:01/15/2025 Patient: Joselito HANNA :1950 A ge:74 Y S ex:Male Address:[address] [place] [phone] * true * Date: Generated for Per deleon/Amandeep/Malindaitting on: 10/02/2024 05:55 PM EST
--- OUTSIDE RECORDS SUMMARY | 2025-02-28 08:57 | XMS_ITS ---
Author Organization Richard Castro MD Address [address] [place] [address] [phone] Care Team Providers Care Enterprise Account Executive Name Role Phone Richard Castro Primary Care Provider REASON FOR VISIT discharge Encounters Encounter Location Date Provider Diagnosis Richard Castro MD 10 [facility] [address] [place] [phone] 02/28/2025 Richard Castro Plan Of Treatment Next Appt Details Provider Name:Richard escamilla, 08/02/2025 07:30:00 AM, [address] [place] [address], [address], [phone], Provider Name:Richard escamilla, 08/26/2025 01:45:00 PM, [address] [place] [address], [address], [phone], Provider Name:Richard Chatman ier, 07/07/2026 07:15:00 AM, [address], [address], [place], [place], [phone], Provider Name:Richard Chatman ier, 07/18/2026 01:00:00 PM, [address], [address], [place], [place], [phone], Progress Notes * Joselito HURD ADOB:[birth year] (75 yo M)Acc No.[id number]:02/28/2025 Patient: Jose Joselito AKERS :1950 A ge:75 Y S ex:Male Address:[address] [place] [id number] * true * Date: Generated for Per deleon/Amandeep/Malindaitting on: 10/02/2024 05:53 PM EST
--- OUTSIDE RECORDS SUMMARY | 2025-07-05 02:30 | XMS_ITS ---
Author Organization Richard Castro MD Address [address] [place], [place] [phone] Care Team Providers Care Shale Planer Operator Name Role Phone Richard Castro Primary Care Provider Results Component Value Reference Range Notes Complete Blood Count Auto Di ff Reviewed date:07/05/2025 12:57:53 PM Interpretation: Performing Lab:[facility], [address] [place] [phone] Notes/Report: White Blood Count 7.2 4.8-10.8 X10*3/uL [...] NRBC Abs Auto 0.000 0.0-0.012 X10*3/uL Comprehensive [place]. Panel Fa st Reviewed date:07/05/2025 04:22:31 PM Interpretation: Performing Lab:[facility], [address] [place] [phone] Notes/Report: Sodium 139 135-145 mmol/L Potassium 4.1 [...] Panel Reviewed date:07/05/2025 12:57:32 PM Interpretation: Performing Lab:[address] [phone] Notes/Report: Triglycerides 61 <150 mg/dL Desirable Triglyceride: [...] (Free>4and<10) Reviewed date:07/05/2025 12:56:55 PM Interpretation: Performing Lab:[address] [phone] Notes/Report: PSA,Total (Free>4and<10) 6.52 0.00-4.00 ng/mL PSA methodology: Burgess Alinity i Chemiluminescent Microparticle Immunoassay (CMIA) UA ClnCatch+Micro w/rflx Cul t Reviewed date:07/05/2025 04:23:00 PM Interpretation: Performing Lab:[address] [phone] Notes/Report: Urine, Clean Catch Color Urine Yellow Appearance Urine Clear PH 5.5 5.0-9.0 Glucose Urine UA Negative Negative mg/dL Urine Blood Small (1+) Negative Specific [place] - Urine 1.020 1.005-1.025 Urine Protein Negative [...] Date Provider Diagnosis Richard Castro MD [address] [place] [phone] 07/05/2025 Richard Castro Elevated PSA R97.20 ; [...] Details Provider Name:Richard escamilla, 08/02/2025 07:30:00 AM, [address] [place] [address], [phone], Provider Name:Richard escamilla, 08/26/2025 01:45:00 PM, [address] [place] [address], [phone], Provider Name:Richard escamilla, 07/07/2026 07:15:00 AM, [address] [place] [address], [phone], Provider Name:Richard escamilla, 07/18/2026 01:00:00 PM, [address] [place] [address], [phone], Progress Notes * oJselito HURD ADOB:[birth year] (75 yo M)Acc No.[id number]:07/05/2025 Progress Note Patient: Joselito HANNA Provider: Del Castro MD :1950 A ge:75 Y S ex:Male Date:07/05/2025 [facility] Subjective: * Chief Complaints: * 1 . [...] - 07/05/2025 07:30 AM) L AB: Comprehensive [place]. Panel Fast (Collection Date & Time - [...] * Procedure Codes: 3 6415 VENIPUNCT, ROUTINE*, 714[address] FLU VACCINE NO PRESERV 3 & >, G0008 ADMN FLU VAC NO FEE SCHED SAME DAY * * The named appointment provid er may or may not be the originator of this progress note, and it is not deemed complete until electronically signed by the appointment provider. Sign off status: Pending * Provider: Del Castro MD Date: 1 09/04/2024 Generated for Per deleon/Amandeep/Maninder on: 10/02/2024 05:54 PM EST
--- OUTSIDE RECORDS SUMMARY | 2025-07-18 08:00 | XMS_ITS ---
Author Organization Richard Castro MD Address [address] [place], [place] [phone] Care Team Providers Care Interstate Planner Name Role Phone Richard Castro Primary Care Provider Allergies No Known Allergies Reason For Referral Reason HEMATURIA NEEDS A URGENT APPT Diagnosis 1 Hematuria (R31.9) Referral Organization Richard Castro MD Referring Provider First Name Richard Referring Provider Last Name Gloria Referring Provider Speciality Internal M edicine Referred Provider Nathaniel Doherty Referred Provider Specialty Urology General Notes Ana [...] Status Risk Notes Problem Melanoma of skin (21214440) Melanoma of skin (C43.9) Active confirmed Vital Signs Blood pressure systolic 92 mm Hg 07/18/20 25 Blood pressure diastolic 58 mm Hg 025 Height 70.50 in 07/18/2025 Weight 201 lbs 07/18/2025 BMI 28.43 kg/m2 07/18/2025 Encounters Encounter Location Date Provider Diagnosis Richard Castro MD [address] [place], [place] [id number] 07/18/2025 Richard Castro Hematuria R31.9 ; El evated PSA R97.20 ; Colon cancer screening Z12.11 ; Paroxysmal atrial fibrillation I48.0 ; Melanoma of skin C43.9 ; Pure hypercholesterolemia E78.00 and Depression screening Z13.31 Assessments Encounter Date Diagnosis (ICD Code) Assessment Notes Treatment Notes Treatment Clinical Notes Section Notes 07/18/2025 Hematuria (ICD-10 - R31.9) need to see his urology urgently dr doherty 07/18/2025 Elevated PSA (ICD-10 - R97.20) followed [...] to see his urol ogy urgently dr doherty Elevated PSA followed by urology Colon cancer [...] HEMATURI A NEEDS A URGENT APPT, Nathaniel Doherty Next Appt Details Follow Up: 6 Weeks, Reason: Provider Name:Richard escamilla, 08/02/2025 07:30:00 AM, [address], [address], [place], [place], [id number], Provider Name:Richard Chatman ier, 08/26/2025 01:45:00 PM, [address] [facility], [address], [place], [phone], Provider Name:Richard Chatman ier, 07/07/2026 07:15:00 AM, [facility], [address], [place], [id number], Provider Name:Richard Chatman ier, 07/18/2026 01:00:00 PM, [facility], [address], [place], [phone], Progress Notes * Joselito HURD ADOB:[birth year] (75 yo M)Acc No.[id number]:07/18/2025 Patient: Joselito HANNA Provider: Del Castro MD :1950 A ge:75 Y S ex:Male Date:07/18/2025 Address:[address] [place], [place] [phone] Subjective: * Chief Complaints: * C omp [...] day. Notes: followed by urology 3. C joseph cancer screening Notes: due for colonoscopy this year but is holding off due to all the surgery coming up 4. P aroxysmal atrial fibrillation Continue Xarelto Tablet, 20 MG, 1 tablet with food, Orally, Once a day. Notes: not having any problems put on xarelto due to his age 5. M elanoma of skin Notes: going to [place] [facility] to have idt removed some more * Procedure Codes: * Preventive Medicine: Counseling: C are goal follow-up plan: Michelle lojanseling for abnormal BMI provided?Yes, Neda way Normal BMI Follow-up Del cohen encouragement to exercise. * Follow Up: 6 Weeks * * Sign off status: Completed true * Provider: Del Castro MD Date: 09/18/2024 Generated for Per deleon/Amandeep/Kendricksmitting on: 10/02/2024 05:54 PM EST History and Physical [...]
--- OUTSIDE RECORDS SUMMARY | 2025-07-30 08:30 | XMS_ITS ---
Author Organization Richard Castro MD Address [address] [place], [place] [phone] Care Team Providers Care Leather Skinner Name Role Phone Richard Castro Primary Care Provider Results Component Value Reference Range Notes Complete Blood Count Auto Di ff Reviewed date:07/30/2025 06:18:40 PM Interpretation: Performing Lab:[facility], [address] [place] [phone] Notes/Report: White Blood Count 7.3 4.8-10.8 X10*3/uL [...] Date Provider Diagnosis Richard Castro MD [address] [place] [address] [address] [place], [place] [phone] 07/30/2025 Richard Castro Anemia D64.9 Assessments Encounter Date Diagnosis (ICD Code) Assessment Notes Treatment Notes Treatment Clinical Notes Section Notes 07/30/2025 Anemia (ICD-10 - D64.9) order faxed to [facility] Reg to be done STAT Patient notified. Plan Of Treatment Treatment Notes Assessment Notes Anemia order faxed to [facility] at Reg to be done STAT Patient notified. Next Appt Details Provider Name:Richard escamilla, 08/02/2025 07:30:00 AM, [address] [place] [address], [address], [place], [place], [phone], Provider Name:Richard escamilla, 08/26/2025 01:45:00 PM, [address], [address], [place], [place], [phone], Provider Name:Richard Chatman ier, 07/07/2026 07:15:00 AM, [address], [address], [place], [phone], Provider Name:Richard Chatman ier, 07/18/2026 01:00:00 PM, [address] [facility], [address], [place], [phone], Progress Notes * Joselito HURD ADOB:[birth year] (75 yo M)Acc No.[id number]:07/30/2025 Progress Note Patient: Joselito HANNA Provider: Del Castro MD :1950 A ge:75 Y S ex:Male Date:07/30/2025 Address:[address] [place] [address] Subjective: * Chief Complaints: * 1 . CBC. * Medical History: Objective: * Vitals: Assessment: * Assessment: 1. A nemia - D64.9 Plan: * Treatment: Notes: order faxed to [facility] pat Reg to be done STAT Patient notified.?? * * The named appointment provid er may or may not be the originator of this progress note, and it is not deemed complete until electronically signed by the appointment provider. Sign off status: Pending * Provider: Del Castro MD Date: 09/30/2024 Generated for Per deleon/Amandeep/eTransmitting on: 10/02/2024 05:55 PM EST
--- OUTSIDE RECORDS SUMMARY | 2025-07-30 10:15 | XMS_ITS ---
Author Organization Richard Castro MD Address [address] [place] [phone] Care Team Providers Care Computer Operations Specialist Name Role Phone Richard Castro Primary [...] Status W/U Status Risk Notes Problem Anemia (281635306) Acute anemia (D64.9) Active confirmed Vital Signs Blood pressure systolic 98 mm Hg 07/30/20 25 Blood pressure diastolic 60 mm Hg 025 Height 70.50 in 07/30/2025 Weight 200 lbs 07/30/2025 BMI 28.29 kg/m2 07/30/2025 Encounters Encounter Location Date Provider Diagnosis Richard Castro MD [address] [place], [place] [phone] 07/30/2025 Richard Castro Acute anemia D64.9 ; [...] the bowl. Next Appt Details Provider Name:Richard Glynnaneudy ier, 08/02/2025 07:30:00 AM, [address] [place] [address], [address] [place] [address], [phone], Provider Name:Richard Garcia Grettaaneudy ier, 08/26/2025 01:45:00 PM, [address] [place] [address], [address] [place] [address], [phone], Provider Name:Richard Garcia Grettaaneudy ier, 07/07/2026 07:15:00 AM, [address] [place] [address], Suite [facility], [place], [place], [phone], Provider Name:Richard Chatman ier, 07/18/2026 01:00:00 PM, [address] [place] [address], Suite [facility], [place], [place], [phone], Progress Notes * Joselito HURD ADOB:[birth year] (75 yo M)Acc No.[id number]:07/30/2025 Patient: Jose MESSERREE Joselito Red Provider: Del Castro MD :1950 A ge:75 Y S ex:Male Date:07/30/2025 Address:[address] [place], [place] [phone] Subjective: * Chief Complaints: * 1 . [...] Castro MD Date: 09/30/2024 Generated for Per deleon/Amandeep/Maninder on: 10/02/2024 05:53 PM EST History and Physical Notes * [...]
--- OUTSIDE RECORDS SUMMARY | 2025-08-01 05:03 | XMS_ITS ---
Author Organization Richard Castro MD Address [address] [place] [phone] Care Team Providers Care Fruit Distributor Name Role Phone Richard Castro Primary Care Provider REASON FOR VISIT ER visit rec'd Encounters Encounter Location Date Provider Diagnosis Richard Castro MD 10 [facility] [address] [place] [phone] 08/01/2025 Richard Castro Plan Of Treatment Next Appt Details Provider Name:Richard escamilla, 08/02/2025 07:30:00 AM, [address] [place] [address], [address] [place] [address], [phone], Provider Name:Richard escamilla, 08/26/2025 01:45:00 PM, [address] [place] [address], [address] [place] [address], [phone], Provider Name:Richard Chatman ier, 07/07/2026 07:15:00 AM, [address], [address], [place], [phone], Provider Name:Richard Chatman ier, 07/18/2026 01:00:00 PM, [address], [address], [place], [phone], Progress Notes * Joselito HURD ADOB:[birth year] (75 yo M)Acc No.[id number]:08/01/2025 Patient: Joselito HANNA :1950 A ge:75 Y S ex:Male Address:[address] [place] [address] * true * Date: Generated for Per deleon/Amandeep/Malindaitting on: 10/02/2024 05:54 PM EST
--- NOTE | 2025-08-01 13:47 | MHC.OFFVIS ---
Intake Visit Reasons: OV-right shoulder lump returning Intake Note: Joselito is a 75 year old Left Hand dominant male who presents today for a post operative wound check about 3 weeks s/p Right Shoulder I&D 06/19/25 & about 5 Months s/p Right Reverse TSA 02/26/25 Allergies No Known Allergies (No Known Allergies*) Allergy (Verified 07/30/25 17:10) HPI Comments Details: Interval History The patient is a 75-year-old male presenting with a follow-up for evaluation of a right shoulder lump. The patient reports that the lump on his right shoulder has been fluctuating in size, noting that it was larger yesterday and appeared almost like an elbow protrusion, but it has since reduced in size. He mentions that the lump feels less hard compared to a few days ago. Results [facility] Medical History Wears hearing aid in both ears [place] (hard of hearing) History of cardioversion BPH (benign prostatic hyperplasia) Hx MRSA infection (07/2018) Tremor Non-Hodgkin lymphoma Afib Hydronephrosis with renal and ureteral calculous obstruction (2019) Acute UTI Sepsis Calculus, renal Hydronephrosis Surgical History S/P right rotator cuff repair Hx of colonoscopy Hx of repair of right rotator cuff (~2014) History of left inguinal hernia repair (~2020) History of right inguinal hernia repair (08/28/18) History of bilateral inguinal hernia repair (06/28/17) History of arthroscopy of left knee Family History Father Throat cancer Mother Melanoma Leukemia Social History Household Members: Spouse and Children Housing: House Are you a primary healthcare financial analyst to a significant other at home: No Do you presently have visiting nurse or other home services: No 75 years or older and lives alone: No Comment: hematoma right thigh, resolved no fracture with 12/2024 fall, no head strike Patient Tobacco Use Status: Former Tobacco user Tobacco use type: Cigarette service: Yes Current occupational status: retired Physical Exam Exam Exam: Physical Exam - General Appearance: The patient appears well and in no acute distress. - Right Shoulder: There is mild swelling over distal incision with firm area or scar tissue. IT is not changed in size compared to prior visit. 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 Infected right shoulder prosthesis We will follow up make sure incision continues to appear benign. We will continue antibiotics. We will touch base on Tuesday. 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
--- OUTSIDE RECORDS SUMMARY | 2025-08-01 17:56 | XMS_ITS | Encounter Summary ---
Author Organization [facility] Address [address] [place] [address] Phone Care Team Providers Care Jewel Lathe Operator Name Role Phone Richard Castro MD Primary Care Provider Encounter Details Date Type Department Care Team (Latest Contact Info) Description 11/15/2017 Ancillary Orders [facility] [address], [address] [place] [address] [phone] Av Orozco MD [address] [place] [address] Paroxysmal atrial fibrillation Social History Tobacco Use [...] Description 09/13/2025 10:00 AM EST Office Visit [facility] [address], [address] [place] [address] [phone] Roxy Burnette DNP [address] [facility], [address] [phone] documented as of this encounter Results * TTE COMPREHENSIVE (11/17/2017 10:06 AM EDT) Anatomical Region Laterality Modality Heart Ultrasound us Av Orozco MD CV ECHO ORDERABLES Final Result documented in this encounter Visit Diagnoses Diagnosis Paroxysmal atrial fibrillation Atrial fibrillation documented in this encounter Care Teams Jewel Lathe Operator Relationship Specialty Start Date End Date Richard Castro MD [address] [place] [address] [place] [address] PCP - General 06/02/17 documented as of this encounter Additional Source Comments The information contained in this document represents components of the legal health record. It is not the complete legal health record.[facility]
--- OUTSIDE RECORDS SUMMARY | 2025-08-01 17:56 | XMS_ITS | Encounter Summary ---
Author Organization [facility] [address] Address [address] [place] [address] Care Team Providers Care Mass Spectroscopist Name Role Phone Ricahrd Castro MD Primary Care Provider [phone] Encounter Details Date Type Department Care Team (Late st Contact Info) Description 07/25/2025 Lab Requisition [facility] - Main Lab [address] [facility] [place] [address] Nikolay Marcano, TAY [address] [place] [address] Gross hematuria Social History Tobacco Use Types [...] Procedure Name Priority Date/Time Associated Diagnosis Comments NON-GYNECOLOGIC CYTOLOGY Routine 07/19/2025 12:00 AM EST Gross hematuria documented in this encounter Results * Non-gynecologic cytology (07/19/2025 12:00 AM EST) Final Diagnosis A. Urine, Voided, [id number]: Negative for high grade urothelial carcinoma. Results of UroVysion fluorescence in situ hybridization (FISH) testing: CEP3: Normal CEP7: Normal CEP17: Normal LSI 9p21: Normal Interpretation: Normal profile Controls stained appropriately. Note: The results are intended as a screening device and should be interpreted in association with other clinical and pathological findings. 08/01/2025 12:55 PM EST [facility] at 1255 EST Specimen A Adequacy Satisfactory for evaluation 08/01/2025 12:55 PM EST [facility] Clinical Information Gross hematuria R31.0 Urine Cytology/FISH (now) 08/01/2025 12:55 PM EST [facility] Gross Description A. Urine, Voided, [id number]: Received one ThinPrep slide for cytology and one ThinPrep slide for UroVysion FISH 08/01/2025 12:55 PM [facility] Disclaimer Unless otherwise specified, all tissue is 10% NB formalin fixed and paraffin embedded. Technical pathology services provided by [facility] [address] [facility] [address] [place] [address] (CLIA #[id number]/Shwetha Tran MD, Center Punch Operator) 08/01/2025 12:55 PM EST [facility] Urine Urine specimen from urethra / Unknown 07/19/2025 07/25/2025 1:35 PM EST [facility] LAB CYTOLOGY ORDERABLES Final R esult [facility] [address] [place] [address], documented in this encounter Visit Diagnoses Diagnosis Gross hematuria documented in this encounter Care Teams Mass Spectroscopist Relationship Specialty Start Date End Date Richard Castro MD [address] [place] [address] Drive [address] [place] [address] PCP - General Internal Medicine 07/19/25 documented as of this encounter
--- OUTSIDE RECORDS SUMMARY | 2025-08-01 17:56 | XMS_ITS | Clinical Summary ---
Author Organization [facility] Address [address] [address] Phone Care Team Providers Care Vacuum Drum Drier Operator Name Role Phone Richard Castro MD [...] and now has another point to his [id number] score now making him by 2 which [...] Type Department Care Team Description 06/18/2025 Telephone [facility] [address] [place] [address] Jeniffer Joseph DNP 05/17/2025 1:20 PM EDT Office Visit [facility] [address], [address] [place] [address] Dianelys Fonseca MD Paroxysmal atrial fibrillation (Primary Dx); Current use of long-term anticoagulation 05/13/2025 4:00 PM EDT Office Visit [facility] [place] [address] [address], [address] [place] [address] Kyle Montanez MD Other chest pain (Primary [...] Description 09/13/2025 10:00 AM EST Office Visit [facility] [address] [place] [address] [address] [facility], [address] [place] [address] Roxy Burnette DNP [address] [place] [address], [address] [address] Health Maintenance Due Date Last Done Comments [...] this topic Medical Devices Implanted Type Area Rework Operator Device Identifier Shelf Expiration Date Model / Serial / Lot Mesh Mesh Pin Pin Right: Arm Procedures Procedure Name Priority Date/Time Associated Diagnosis Comments BASIC METABOLIC PANEL (BMP) Routine 09/10/2022 11:13 AM EST Persistent atrial fibrillation from Last 3 Months or Most Recently Relevant to Health Maintenance Results * (ABNORMAL) Basic metabolic panel (09/10/2022 11:13 AM EST) SODIUM 138 133 - 146 mmol/L [facility] CHLORIDE 102 96 - 108 mmol/L [facility] POTASSIUM 4.8 3.3 - 5.1 mmol/L [facility] CO2 27 21 - 35 mmol/L [facility] BUN 21(H) 6 - 19 mg/dL [facility] CREATININE 1.10 0.5 - 1.5 mg/dL [facility] GLUCOSE 93 70 - 99 mg/dL [facility] CALCIUM 9.2 8.4 - 10.3 mg/dL [facility] EGFR 71 >59 mL/min/1.7 3m2 [facility] Comment:Estimated glomerular filtration rate calculated using the CKD-EPI refit equation. ANION GAP 14 10 - 20 mmol/L [facility] Blood 09/10/2022 11:1 3 AM EST 09/10/2022 4:07 PM EST us Edenilson Stapleton MD LAB BLOOD BKR ORDERABLES Fin al Result [facility] [address] [place], [place] [phone] from Last 3 Months or Most Recently Relevant to Health Maintenance Insurance [employer] MEDEX SUPPLEMENT MEDICARE PART A & B Member Subscriber Plan / Payer (Ef fective 2014-Present) Name:Roosevelt Hurd Member ID:[id number] Relation to Subscriber:Self Name:Roosevelt Hurd Subscriber ID:[id number] Payer ID:[id number] Group ID:Not on file Type:Medicare Address: [employer] [facility] [address] [address] [employer] MEDEX SUPPLEMENT MEDICARE PART A & B [employer] MEDEX SUPPLEMENT MEDICARE PART A & B MEDICARE PART A & B [employer] MEDEX SUPPLEMENT MEDICARE PART A & B [employer] MEDEX SUPPLEMENT MEDICARE PART A & B [employer] MEDEX SUPPLEMENT MEDICARE PART A & B [place] [employer] MEDEX SUPPLEMENT MEDICARE PART A & B [place] [employer] MEDEX SUPPLEMENT MEDICARE PART A & B Care Teams Vacuum Drum Drier Operator Relationship Specialty Start Date End Date Richard Castro MD [address] [place] [address] [place] [address] PCP - General 06/02/17 Additional Source Comments The information contained in this document represents components of the legal health record. It is not the complete legal health record.[facility]
--- OUTSIDE RECORDS SUMMARY | 2025-08-01 17:57 | XMS_ITS | Encounter Summary ---
Author Organization [facility] Address [address] [place] [address] Care Team Providers Care Cardiac Surgeon Name Role Phone Richard Castro MD Primary Care Provider Encounter Details Date Type Department Care Team (Late st Contact Info) Description 07/19/2025 Lab Requisition [facility] - Main Lab [address] [place] [address] Nikolay Marcano, TAY [address] [place] [address] Gross hematuria Social History Tobacco Use Types [...] Urine No growth 07/20/2025 1:59 PM EST [facility] Urine Urine specimen obtained by clean catch procedure / Unknown 07/19/2025 1:15 PM EST 07/19/2025 6:23 PM EST us Nikolay [facility] MICROBIOLOGY - GENERAL VANESSA KULKARNI Final Result [facility] [address] [place] [address], documented in this encounter Visit Diagnoses Diagnosis Gross hematuria documented in this encounter Care Teams Cardiac Surgeon Relationship Specialty Start Date End Date Richard Castro MD [address] [place] [address] [place] [address] PCP - General Internal Medicine 07/19/25 documented as of this encounter
--- OUTSIDE RECORDS SUMMARY | 2025-08-01 17:57 | XMS_ITS | Patient Health Record ---
Author Organization Richard Castro MD Address [address] [place], [place] [id number] Care Team Providers Care Respiratory Assistant Name Role Phone Richard Castro Primary Care Provider Allergies No Known Allergies Results Component Value Reference Range Notes Complete Blood Count Auto Di ff Reviewed date:07/05/2025 12:57:53 PM Interpretation: Performing Lab:[facility], [address] [place] [address] Notes/Report: White Blood Count 7.2 4.8-10.8 X10*3/uL [...] NRBC Abs Auto 0.000 0.0-0.012 X10*3/uL Comprehensive [place]. Panel Fa st Reviewed date:07/05/2025 04:22:31 PM Interpretation: Performing Lab:[facility], [address] [place] [address] Notes/Report: Sodium 139 135-145 mmol/L Potassium 4.1 [...] Panel Reviewed date:07/05/2025 12:57:32 PM Interpretation: Performing Lab:[address] [address] Notes/Report: Triglycerides 61 <150 mg/dL Desirable Triglyceride: [...] (Free>4and<10) Reviewed date:07/05/2025 12:56:55 PM Interpretation: Performing Lab:[address] [address] Notes/Report: PSA,Total (Free>4and<10) 6.52 0.00-4.00 ng/mL PSA methodology: Burgess Alinity i Chemiluminescent Microparticle Immunoassay (CMIA) UA ClnCatch+Micro w/rflx Cul t Reviewed date:07/05/2025 04:23:00 PM Interpretation: Performing Lab:[address] [address] Notes/Report: Urine, Clean Catch Color Urine Yellow Appearance Urine Clear PH 5.5 5.0-9.0 Glucose Urine UA Negative Negative mg/dL Urine Blood Small (1+) Negative Specific [place] - Urine 1.020 1.005-1.025 Urine Protein Negative [...] 05:16:55 PM Interpretation: Performing Lab:[facility], [address] [place] [address] Notes/Report: White Blood Count 8.2 4.8-10.8 X10*3/uL [...] 05:16:08 PM Interpretation: Performing Lab:[facility], [address] [place] [address] Notes/Report: Sodium 137 135-145 mmol/L Potassium 4.2 [...] date:12/19/2024 05:35:49 PM Interpretation: Performing Lab: Notes/Report: [address] [address] [address] Scan Report Signed Patient: Joselito Hurd Sr MR#: [id number] : 1950 Acct:[id number] Age/Sex: 74 / M ADM Date: 12/17/24 Loc: HO.CT Attending Dr: Js Marquez PA-C Ordering Physician: Js Marquez PA-C Date of Service: 12/17/24 Procedure(s): CT shoulder RT wo IV con Accession Number(s): [id number] cc: Richard Castro MD; Js Marquez PA-C Report Number: [id number]: Total DLP = 283.00 mGy-cm CLINICAL HISTORY: [...] in OV> 12/19/24913 DD/ 2 TD/TT: 12/19/24912 Hydroponics Worker: [place] [address] [place] Scan Report Signed Patient: Flavia Hurd Sr MR#: [id number] : 1950 Acct:[id number] Age/Sex: 74 / M ADM Date: 12/17/24 Loc: HO.CT Attending Dr: Justino Marquez PA-C Ordering Physician: Js Marquez PA-C Date of Service: 12/17/24 Procedure(s): CT staci obrien RT wo IV con Accession Number(s): [id number] cc: Richard Castro MD; Js Marquez PA-C [...] in OV> 12/19/2414 DD/ 2 TD/TT: 12/19/24912 Hydroponics Worker: MRSA Nasal Screen Reviewed date:01/29/2025 05:00:18 PM Interpretation: Performing Lab:[facility], [address] [place] [address] Notes/Report: MRSA Nasal PCR NEGATIVE Negative SA Nasal PCR NEGATIVE Negative MRSA Interpretation SEE NOTE MRSA target DNA not detected; SA target DNA not detected. A MRSA NEGATIVE, SA NEGATIVE test result does not preclude MRSA or SA nasal colonization. Complete Blood Count Auto Di ff Reviewed date:02/21/2025 05:04:30 PM Interpretation: Performing Lab:[facility], [address] [place] [address] Notes/Report: White Blood Count 5.4 4.8-10.8 X10*3/uL [...] Panel Reviewed date:02/21/2025 04:13:13 PM Interpretation: Performing Lab:[facility], [address] [place] [address] Notes/Report: Sodium 138 135-145 mmol/L Potassium 4.5 [...] Screen Reviewed date:02/21/2025 04:00:33 PM Interpretation: Performing Lab:[facility], [address] [place] [address] Notes/Report: Spec expiration changed by ARPITA on 02/21/25 Reason: PAT NURSING: Call Blood Bank (ext. [phone]) to band patient on admission. Type and Screen in effect until 2300 on 02/26/25 Witnessed by PORTERS Blood Type AP Antibody Screen NEGATIVE Hemoglobin and Hematocrit Reviewed date:02/26/2025 12:28:58 PM Interpretation: Performing Lab:[facility], [address] [place] [address] Notes/Report: Hemoglobin 13.7 14.0-18.0 g/dl Hematocrit 40.8 42.0-52.0 % Pathology Reviewed date:02/28/2025 05:07:11 PM Interpretation: Performing Lab:[facility], [address] [place] [address] Notes/Report: ------ Name: Joselito Hurd Sr Age/Sex: 75/M : 1950 Unit#: [id number] Attend Dr: Clint Thomas MD Re02/26/25 Status : [facility] Disch: ------ SPEC : [id number] RECD : 02/27/25 STATUS: EARNEST WALLER NUM: [id number] KRISTINA: 02/26/251449 [facility] DR: Clint Thomas MD ENTERED: 02/27/25 [...] yet, brittle, tapia-yellow with yellow-pink bone marrow. [employer] secti ons are submitted in a cassette labeled A1 following decalcification. CEDS IHC S/NG Disclaimer NOTE: Unless otherwi se stated, all tissue is formalin-fixed and paraffin-embedded. Some or all of the immunohistochemical tests reported herein may have been developed and their performance characteristics determined by [facility]. They have not been cleared or appr saima by the U.S. Food and Drug Administration (FDA). However, the FDA has determined that such clearance or approval is not necessary. This laboratory is certified under the Clinical Laboratory Improvement Amendments of 1988 (CLIA) as qualified to perform high comp lexity clinical laboratory testing. Copies To: Richard Castro MD [facility] [address] [address] CONTINUED ON NEXT PAGE ------ Name: Joselito Hurd Sr Age/Sex: 75/M : 1950 Unit#: [id number] Attend Dr: Clint Thomas MD Re02/26/25 Status : [facility] Location: [facility] Disch: ------ SPEC : [id number] RECD : 02/27/25 STATUS: EARNEST WALLER NUM: [id number] KRISTINA: 02/26/25-[address] [facility] [address]: Clint Thomas MD ENTERED: 02/27/25- 53 SP TYPE: Surgical OTHR DR: Richard Castro MD ORDERED: Gross Micro L3, Decal Copies To: (Continued) Clint Thomas MD [facility] [address] [place] [address] [address] [place] [address] ------ Signed (signature on file) Leon Keene MD 02/28/25 1146 ------ END OF REPORT XR shoulder RT 1V Reviewed date:02/26/2025 05:10:31 PM Interpretation: Performing Lab: Notes/Report: [address] [address] XRay Report Signed Patient: Joselito Hurd Sr MR#: [id number] : 1950 Acct:[id number] Age/Sex: 75 / M ADM Date: 02/26/25 Loc: HO.S3 345-[address]: Clint Thomas MD Ordering Physician: Js Marquez PA-C Date of Service: 02/26/25 Procedure(s): XR shoulder RT 1V Accession Number(s): [id number] cc: Richard Castro MD; Js Marquez PA-C [...] 02/26/25 1702 DD/ 1539 TD/TT: 02/26/25 1642 Hydroponics Worker: [address] [address] XRay Report Signed Patient: Flavia Hurd Sr MR#: [id number] : 1950 Acct:[id number] Age/Sex: 75 / M ADM Date: 02/26/25 Loc: HO.S3 345-[address]: Clint ellison MD Ordering Physician: Js Marquez PA-C Date of Service: 02/26/25 Procedure(s): XR staci ulder RT 1V Accession Number(s): [id number] cc: Richard Castro MD; Js Marquez PA-C [...] 02/26/25 1702 DD/ 1539 TD/TT: 02/26/25 1642 Hydroponics Worker: Complete Blood Count Auto Di ff Reviewed date:02/27/2025 04:10:37 PM Interpretation: Performing Lab:[facility], [address] [place] [address] Notes/Report: White Blood Count 11.9 4.8-10.8 X10*3/uL [...] g Reviewed date:02/27/2025 04:01:26 PM Interpretation: Performing Lab:[address] [address] Notes/Report: Sodium 136 135-145 mmol/L Potassium 4.2 [...] stain Reviewed date:06/20/2025 05:05:21 PM Interpretation: Performing Lab:[address] [place] [address] Notes/Report: RIGHT SHOULDER PER R/O C.ACNES RT SHOULDER Gram stain Gram stain results: Gram stain 4+ polys Gram stain 4+ red blood cells Gram stain No organisms seen Routine Culture Reviewed date:06/20/2025 03:38:27 PM Interpretation: Performing Lab:[facility], [address] [place] [address] Notes/Report: RIGHT SHOULDER PER R/O C.ACNES RT SHOULDER Routine Culture No growth after 2 days Anaerobic Culture Reviewed date:06/20/2025 03:38:01 PM Interpretation: Performing Lab:[facility], [address] [place] [address] Notes/Report: RIGHT SHOULDER PER R/O C.ACNEVani RT SHOULDER O:CUTIAC Cutibacterium acnes Anaerobic Culture B-Lac Susc (reported) Anaerobic Culture Beta-lactamase not produced; suggests PEN/AMP susceptibility Anaerobic Culture Quant Org ID Anaerobic Culture 1+ Liver Panel Reviewed date:06/27/2025 04:46:56 PM Interpretation: Performing Lab:[facility], [address] [place] [address] Notes/Report: Bilirubin Total 0.2 0.0-1.0 mg/dL Bilirubin Direct < 0.2 0.0-0.5 mg/dL Aspartate Amino Transferase 26 5-37 U/L Alanine Aminotransferase 30 0-40 U/L Total Protein 7.4 6.5-8.0 g/dL Albumin Level 4.0 3.5-5.0 g/dL Alkaline Phosphatase 108 39-117 U/L PSA Free and Total Reviewed date:07/08/2025 05:47:31 PM Interpretation: Performing Lab:[facility], [address] [place] [address] Notes/Report: Prostate Specific Ag Total 6.3 < [...] 30 93 9 (3)Jasonona et al.:MICHI 277: 9382-1734 (1996) (4)Catalona et al.:MICHI 279: 9847-8559 (1997) (x)These estimates vary with age, ethnicity, [...] mind. PSA was performed using the Zulema [place] Immunoassay method. Values obtained from different assay methods cannot be used interchangeably. PSA levels, regardless of value, should not be interpreted as absolute evidence of the presence or absence of disease. THIS TEST WAS PERFORMED AT: [facility] [address] [place] [phone] CLAUS SEALS MD Free Prostate Spec Ag 1.4 Liver Panel Reviewed date:07/21/2025 05:01:28 PM Interpretation: Performing Lab:[facility], [address] [place] [address] Notes/Report: Bilirubin Total 0.5 0.0-1.0 mg/dL Bilirubin Direct 0.2 0.0-0.5 mg/dL Aspartate Amino Transferase 31 5-37 U/L Alanine Aminotransferase 42 0-40 U/L Total Protein 6.5 6.5-8.0 g/dL Albumin Level 3.9 3.5-5.0 g/dL Alkaline Phosphatase 107 39-117 U/L Complete Blood Count Auto Di ff (Not yet reviewed by provider) Interpretation:left message Performing Lab:[facility], [address] [place] [address] Notes/Report: White Blood Count 8.0 4.8-10.8 X10*3/uL [...] te Reviewed date:07/29/2025 04:27:40 PM Interpretation: Performing Lab:[facility], [address] [place] [address] Notes/Report: Erythrocyte Sedimentation Rate 15 1-20 MM/HR Patients with polycythemia and many hemoglobin abnormalities may have depressed sed rates whereas patients with anemia may have elevated sed rates. Comprehensive Met. Panel Reviewed date:07/29/2025 04:26:17 PM Interpretation: Performing Lab:[facility], [address] [place] [address] Notes/Report: Sodium 138 135-145 mmol/L Potassium 4.1 [...] Protein Reviewed date:07/29/2025 04:27:57 PM Interpretation: Performing Lab:[facility], [address] [place] [address] Notes/Report: C Reactive Protein 1.19 < or = 0.50 mg/dL Complete Blood Count Auto Di ff Reviewed date:07/30/2025 06:15:40 PM Interpretation: Performing Lab:[facility], [address] [place] [address] Notes/Report: White Blood Count 6.9 4.8-10.8 X10*3/uL [...] INR Reviewed date:07/30/2025 06:14:59 PM Interpretation: Performing Lab:[address] [address] Notes/Report: Prothrombin Time 20.4 11.2-13.5 SEC [employer]NATIONAL [...] Time Reviewed date:07/30/2025 06:14:46 PM Interpretation: Performing Lab:[facility], [address] [place] [address] Notes/Report: Partial Thromboplastin Time 40.8 26.7-34.1 SEC Comprehensive Met. Panel Reviewed date:07/30/2025 06:14:23 PM Interpretation: Performing Lab:[facility], [address] [place] [address] Notes/Report: Sodium 137 135-145 mmol/L Potassium 4.3 [...] 118 39-117 U/L Type and Screen Reviewed date:07/31/2025 04:29:07 PM Interpretation: Performing Lab:[facility], [address] [place] [address] Notes/Report: Results at Issue Units as of 07/30/252055 ... Test View Group: Most Recent HGB HCT Results LABORATORY Date Time Test Result Flag Normal Range 07/30/25 1735 HGB 7.8 L 14.0-18.0 g/dl 07/30/25 1735 HCT 23.3 L 42.0-52.0 % Hgb 7-9 gm No Blood Type AP Antibody Screen NEGATIVE UA ClnCatch+Micro w/rflx Cul t Reviewed date:07/31/2025 04:28:14 PM Interpretation: Performing Lab:[facility], [address] [place] [address] Notes/Report: 20250730 Urine, Clean Catch Color Urine Yellow Appearance Urine Clear PH 5.5 5.0-9.0 Glucose Urine UA Negative Negative mg/dL Urine Blood Negative Negative Specific [place] - Urine 1.025 1.005-1.025 Urine Protein Negative Neg-Trace mg/dL Urine Ketones Negative Negative mg/dL Nitrite Urine Negative Negative Leukocyte Esterase Urine Negative Negative RBC Urine 0-2 0-2 /HPF WBC Urine 0-5 0-5 /HPF Squamous Epithelial Cell Urine 0-2 0-2 /HPF Bacteria Urine None Seen None Seen Hyaline Casts Urine 0-2 0-2 /LPF Red Blood Cells Reviewed date:07/31/2025 04:28:36 PM Interpretation: Performing Lab:[facility], [address] [place] [address] Notes/Report: Red Blood Cells [id number] AP RC Red Blood Cells TRANSFUSED 07/30/252054 US Extremity Nonvas Limited RT Reviewed date:07/31/2025 04:27:54 PM Interpretation: Performing Lab: Notes/Report: [address] [address] Ultrasound Report Signed Patient: Joselito Hurd Sr MR#: [id number] : 1950 Acct:[id number] Age/Sex: 75 / M ADM Date: 07/30/25 Loc: HO.ED Attending Dr: [facility]ing [facility] Date of Service: 07/30/25 Procedure(s): US Extremity Nonvas Limited RT Accession Number(s): [id number] cc: Richard Castro MD; Radha Bhatia Reason for Exam: Soft tissue swelling R anterior shoulder, r/o abscess CLINICAL HISTORY: Soft tissue swelling R anterior shoulder, r o abscess --- Additional Notes or Special Instructions: visualization of fluid collection. US soft tissues of the right shoulder Comparison: US - US EXTREMITY NONVAS LIMITED RT - 07/30/25 20:[address]/WA/SR - CT SHOULDER RT WO IV CON - 12/17/24 16:48 EDT Findings: Complex predominantly hypoechoic mass in the anterior right shoulder soft tissues (5.6 x 3.7 x 5.6 cm) with peripheral hypervascularity. This region is predominantly hypoechoic with increased through transmission, but is not anechoic/simple fluid. There is a region of questionable internal septation with associated vascularity (seen on color Doppler images). IMPRESSION: Complex hypoechoic mass in the anterior right shoulder soft tissues (5.6 cm) with peripheral vascularity. Findings may represent a complex abscess, but neoplasm/malignancy is not excluded. Recommend correlation with tissue/fluid sampling and follow-up ultrasound after the resolution of acute symptoms to ensure resolution. This document has been electronically signed by: Jeremy Mcleod MD on 07/30/2025 21:27:19 Dictated By: Jeremy Mcleod MD Signed By: <Electronically signed by Jeremy Mcleod MD in OV> 07/30/252128 DD/ 26 TD/TT: 07/30/252126 Hydroponics Worker: [place] [address] Ultrasound Report Signed Patient: Flavia Hurd Sr MR#: [id number] : 1950 Acct:[id number] Age/Sex: 75 / M ADM Date: 07/30/25 Loc: .ED Attending Dr: Ordering Physician: Radha Bhatia Date of Service: 07/30/25 Procedure(s): US Ext remity Nonvas Limited RT Accession Number(s): [id number] cc: Richard Castro MD; Radha Bhatia Reason for Exam: Sof t tissue swelling R anterior shoulder, r/o abscess CLINICAL HISTORY: So ft tissue swelling R anterior shoulder, r o abscess --- Additional Notes or Special Instructions : visualization of fluid collection. US soft tissues of t he right shoulder Comparison: US - US EXTREMITY NONVAS LIMITED RT - 07/30/25 20:[address]/WA/SR - CT SHOULD ER RT WO IV CON - 12/17/24 16:48 EDT Findings: Complex predominantl y hypoechoic mass in the anterior right shoulder soft tissues (5.6 x 3.7 x 5.6 cm) with peripheral hypervascularity. This region is predominantly hypoechoic with increased through transmission, but is not anechoic/simple fluid. There is a region of questionable internal septation with assoc iated vascularity (seen on color Doppler images). IMPRESSION: Complex hypoechoic m ass in the anterior right shoulder soft tissues (5.6 cm) with peripheral vascularity. Findings may represent a complex abscess, but neoplasm/maligna ncy is not excluded. Recommend correlation with tissue/fluid samplin g and follow-up ultrasound after the resolution of acute symptoms to en sure resolution. This document has be en electronically signed by: Jeremy Mcleod MD on 07/30/2025 21:27:19 Dictated By: Jeremy Mcleod MD Signed By: <Caty icallchristiano signed by Jeremy Mcleod MD in OV> 07/30/252128 DD/ 26 TD/TT: 07/30/252126 Hydroponics Worker: Reason For Referral Reason HEMATURIA NEEDS A [...] Status W/U Status Risk Notes Problem Anemia (405323629) Anemia (D64.9) Active confir med Problem 253875564 Neuropathy (G62.9) Active confirmed Problem 80524591 Prostatism (N40.0) Active confirmed Problem 020941756 Paroxysmal atria l fibrillation (I48.0) Active confirmed Problem 897165882 Essential tremor (G25.0) Active confirmed Problem 732645656018853 Erectile dysfunc tion due to arterial insufficiency (N52.01) Active confirmed Problem 14289959 Mitral valve dis order (I05.9) Active confirmed Problem Pure hypercholesterolemia (170778887) Elevated LDL cholesterol level (E78.0) Active confirmed Problem 434210400 Non-rheumatic mi tral regurgitation (I34.0) Active confirmed Problem 201656737 Pure hypercholesterolemia (E78.00) Active confirmed Problem 024271589 Elevated PSA (R97.20) Active confirme d Problem 314238091 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 confirmed Problem 93454233 Hydronephrosis 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) Active confirmed Problem Melanoma of skin (36444521) Melanoma of skin (C43.9) Active confirmed Problem 926757107 Elevated serum cholesterol (E78.9) Active confirmed Problem Anemia (352071083) Acute anemia (D64.9) Active confirmed Problem 096941240 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 Vital Signs Blood pressure diastolic 60 mm Hg 07/30/2025 Height 70.50 in 07/30/2025 Blood pressure systolic 98 mm Hg 07/30/2025 Weight 200 lbs 07/30/2025 BMI 28.29 kg/m2 07/30/2025 Encounters Encounter Location Date Provider Diagnosis Richard Castro MD [address] [place], [place] [id number] 07/05/2025 Richard Castro Elevated PSA R97.20 ; Encounter for administration of vaccine Z23 and Pure hypercholesterolemia E78.00 Richard Castro MD [address] [place] [id number] 07/30/2025 Richard Castro Acute anemia D64.9 ; Paroxysmal atrial fibrillation I48.0 ; 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 C85.88 and Hematuria R31.9 Richard Castro MD [address] [place] [id number] 12/24/2024 Richard Castro Mass in neck R22.1 ; Right shoulder pain, unspecified chronicity M25.511 and Preop examination Z01.818 Richard Castro MD [address] [place] [id number] 07/18/2025 Richard Castro Hematuria R31.9 ; El evated PSA R97.20 ; Colon cancer screening Z12.11 ; Paroxysmal atrial fibrillation I48.0 ; Melanoma of skin C43.9 ; Pure hypercholesterolemia E78.00 and Depression screening Z13.31 Richard Castro MD [address] [place] [id number] 01/15/2025 Richard Castro MD [address] [place] [id number] 02/28/2025 Richard Castro MD [address] [id number] 08/01/2025 Richard Castro Assessments Encounter Date Diagnosis (ICD [...] - R22.1) THE ORDER WAS FAXED TO [facility], pending diagnsotic testing 12/24/2024 Right shoulder [...] his shoulder surgery if cleared by his construction assistant 07/18/2025 Colon cancer screeni ng (ICD-10 - [...] of skin (ICD-10 - C43.9) going to [facility] to have idt removed some more 07/18/2025 Pure hypercholesterolemia (ICD-10 - E78.00) 07/18/2025 Depression screening (ICD-10 - Z13.31) Plan Of Treatment Pending Test Test Name Order Date US RENAL BILATERAL 07/17/2020 US RENAL BILATERAL 07/24/2020 Complete Blood Count Auto Diff 5 US soft tiss head and/or neck 12/24/2024 Future Test Test Name Order Date US RENAL BILATERAL 07/29/2021 Next Appt Details Provider Name:Richadr Chatman ier, 08/02/2025 07:30:00 AM, [address] [place] [address] Drive, [address], [place], [place], [phone], Provider Name:Richard Chatman ier, 08/26/2025 01:45:00 PM, [address] [place] [address] Drive, [address], [place], [place], [phone], Provider Name:Richard saldivarr, 07/07/2026 07:15:00 AM, [address] [facility], [address], [place], [place], [phone], Provider Name:Richard Chatman ier, 07/18/2026 01:00:00 PM, [address], [address], [place], [place], [phone], Insurance Providers Payer Name Payer Address Payer Phone Subscriber Number Group Number Insured Name Patient Relationship to Insured Coverage Start Date Coverage End Date MEDICARE [address] [place] [address] [id number] Joselito Hurd Self - patient is the insured MED[employer] BCBS OF [employer] [address] [place] [address] [id number] Joselito Hurd Self - patient is the [...]
--- OUTSIDE RECORDS SUMMARY | 2025-08-01 17:57 | XMS_ITS | Patient Health Record ---
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 Problems Problem Type SNOMED Code ICD Code Onset Dates Problem Status W/U Status Risk Notes Problem Hemorrhoids (84054700) Hemorrhoids (455.6) Active confirmed Problem Colon cancer screening (865053938) Colon cancer screening (V76.51) Active confirmed Problem Feces contents abnormal (526457020) Abnormal findings in stool (792.1) Active confirmed Plan Of Treatment Future Test Test Name Order Date COLONOSCOPY 07/26/2014 Insurance Providers Payer Name Payer Address Payer Phone Subscriber Number Group Number Insured Name Patient Relationship to Insured Coverage Start Date Coverage End Date [facility] [address] [address] [place] [address] [id number] ROOSEVELT SAMUELS Self - patient is the insured [place] [address] [facility] [place] [id number] ROOSEVELT SAMUELS Self - patient is the insured Medical (General) History Medical History History ICD Code lymphoma Atrial fibrillation mitral valve prolapse Surgical History Surgery Date(Month/Year) lymphectomy 1 node under arm 2010
--- OUTSIDE RECORDS SUMMARY | 2025-08-01 17:57 | XMS_ITS | Encounter Summary ---
Author Organization [facility] Address [address] [facility] [address] [place] [address] Phone Care Team Providers Care Chief Revenue Officer Name Role Phone Richard Castro MD Primary Care Provider Encounter Details Date Type Department Care Team (Late Contact Info) Description 08/26/2022 Procedure Pass [facility] [address] [place] [address] Social History Tobacco Use Types Packs/Day Years [...] Description 09/13/2025 10:00 AM EST Office Visit [facility] 22 [facility] 3rd Floor, [address] [place] [address] Roxy Burnette DNP 22 [facility], [address] [address] [email or web address] documented as of this encounter Visit Diagnoses Not on filedocumented in this encounter Care Teams Chief Revenue Officer Relationship Specialty Start Date End Date Richard Castro MD [address] [place] [address] [place] [address] PCP - General 06/02/17 documented as of this encounter Additional Source Comments The information contained in this document represents components of the legal health record. It is not the complete legal health record.[facility]
--- OUTSIDE RECORDS SUMMARY | 2025-08-01 17:57 | XMS_ITS | Encounter Summary ---
Author Organization [facility] Address [address] [facility] [address] [place] [address] Phone Care Team Providers Care Spot Checker Name Role Phone Richard Castro MD Primary Care Provider Encounter Details Date Type Department Care Team (Latest Contact Info) Description 06/04/2017 Ancillary Orders [facility] [address] [place] [address] 3rd Floor, [address] [place] [address] Av Orozco MD [address] [place] [address] Diagnosis unknown Social History Tobacco Use Types [...] Description 09/13/2025 10:00 AM EST Office Visit [facility] [address] [place] 3rd Floor, [address] [place] [address] Roxy Burnette DNP [address] [place] [address], [address] [address] documented as of this encounter Visit Diagnoses Diagnosis Diagnosis unknown documented in this encounter Care Teams Spot Checker Relationship Specialty Start Date End Date Richard Castro MD [address] [place] [address] Dr Chaudhary, [place] [address] PCP - General 06/02/17 documented as of this encounter Additional Source Comments The information contained in this document represents components of the legal health record. It is not the complete legal health record.[facility]
--- OUTSIDE RECORDS SUMMARY | 2025-08-01 17:57 | XMS_ITS | Clinical Summary ---
Author Organization [address] [facility] Address 299 [place] [address] Phone Care Team Providers Care Lehr Loader Name Role Phone Richard Castro MD Primary Care Provider Encounters Date Type Department Care Team Description 07/25/2025 Lab Requisition [facility] [address] [place] [address] Nikolay Marcano PA Gross hematuria 07/19/2025 Lab Requisition [facility] [address] [place] [address] Nikolay Marcano PA Gross hematuria [...] Routine 07/19/2025 1:15 PM EST Gross hematuria NON-GYNECOLOGIC CYTOLOGY Routine 07/19/2025 12:00 AM EST Gross hematuria from Last 3 Months Results * Culture urine (07/19/2025 1:15 PM EST) Pathologist [facility] Culture, Urine No growth 07/20/2025 1:59 PM EST [facility] Urine Urine specimen obtained by clean catch procedure / Unknown 07/19/2025 1:15 PM EST 07/19/2025 6:23 PM EST [facility] MICROBIOLOGY - GENERAL ORDE RABLES Final Result [facility] [address] [place] [address], * Non-gynecologic cytology (07/19/2025 12:00 AM EST) Final Diagnosis A. Urine, Voided, [id number]: Negative for high grade urothelial carcinoma. Results of UroVysion fluorescence in situ hybridization (FISH) testing: CEP3: Normal CEP7: Normal CEP17: Normal LSI 9p21: Normal Interpretation: Normal profile Controls stained appropriately. Note: The results are intended as a screening device and should be interpreted in association with other clinical and pathological findings. 08/01/2025 12:55 PM [facility] at 1255 EST Specimen A Adequacy Satisfactory for evaluation 08/01/2025 12:55 PM [facility] Clinical Information Gross hematuria R31.0 Urine Cytology/FISH (now) 08/01/2025 12:55 PM [facility] Gross Description A. Urine, Voided, [id number]: Received one ThinPrep slide for cytology and one ThinPrep slide for UroVysion FISH 08/01/2025 12:55 PM [facility] Disclaimer Unless otherwise specified, all tissue is 10% NB formalin fixed and paraffin embedded. Technical pathology services provided by [facility] at [address], [place] [address] (CLIA #[id number]/Shwetha Tran MD, Core Extruder) 08/01/2025 12:55 PM [facility] Urine Urine specimen from urethra / Unknown 07/19/2025 07/25/2025 1:35 PM EST [facility] CYTOLOGY ORDERABLES Final R esult [facility] [address] [place] [address], from Last 3 Months Insurance MEDICARE [facility] Care Teams Lehr Loader Relationship Specialty Start Date End Date Richard Castro MD 10 [facility] [address] [place] [address] PCP - General Internal Medicine 07/19/25
--- OUTSIDE RECORDS SUMMARY | 2025-08-01 17:57 | XMS_ITS | Encounter Summary ---
Author Organization [facility] Address [address] [facility] [address] [place] [address] Phone Care Team Providers Care Molding And Trim Installer Name Role Phone Richard Castro MD Primary Care Provider Encounter Details Date Type Department Care Team (Late st Contact Info) Description 12/12/2020 Procedure Pass [facility] [address] [place] [address] Social History Tobacco Use Types Packs/Day Years [...] 10:00 AM EST Office Visit [facility] 22 [facility] 3rd Floor, [address] [place], [place] [phone] Roxy Burnette DNP 22 [facility] 301 [place] [address] [email or web address] documented as of this encounter Visit Diagnoses Not on filedocumented in this encounter Care Teams Molding And Trim Installer Relationship Specialty Start Date End Date Richard Castro MD [address] [place] [address] [place] [address] PCP - General 06/02/17 documented as of this encounter Additional Source Comments The information contained in this document represents components of the legal health record. It is not the complete legal health record.[facility]
== END 2025-08-01 14:18 | disposition home or self-care (01) ==
LOC: HO.HOS 13:45
PROVIDERS: PCP Internal Medicine; Visit Provider Orthopaedic Surgery
DX: T84.59XA Infection and inflammatory reaction due to other internal joint prosthesis, initial encounter (principal); Z96.611 Presence of right artificial shoulder joint
CPT/HCPCS: 99024

== ENCOUNTER → 2025-08-01 13:45 | Outpatient (BNVA) | payer MEDICARE, SELFPAY | PROVIDERS: PCP Internal Medicine; Visit Provider Orthopaedic Surgery | DX: T84.59XA Infection and inflammatory reaction due to other internal joint prosthesis, initial encounter (principal); Z96.611 Presence of right artificial shoulder joint | CPT/HCPCS: 99212 ==

== ENCOUNTER 2025-08-02 10:39 | Outpatient (REF) | payer MEDICARE, SELFPAY ==
--- OUTSIDE RECORDS SUMMARY | 2024-12-24 06:00 | XMS_ITS ---
Author Organization Richard Castro MD Address [address] [place], [place] [phone] Care Team Providers Care Research And Development Engineer Name Role Phone Richard Castro Primary Care Provider [phone] Allergies No Known Allergies Results Component Value Reference Range Notes Complete Blood Count Auto Di ff Reviewed date:12/24/2024 05:16:55 PM Interpretation: Performing Lab:[facility], [address] [place] [phone] Notes/Report: White Blood Count 8.2 4.8-10.8 X10*3/uL [...] Panel Reviewed date:12/24/2024 05:16:08 PM Interpretation: Performing Lab:[facility], [address] [place] [phone] Notes/Report: Sodium 137 135-145 mmol/L Potassium 4.2 [...] 02-12-25 needs CBC BMP EKG going to Wood Casket Assembler 01-01-25 to be cleared, Patientfound a mass [...] Location Date Provider Diagnosis Richard Castro MD [address] [place] [address] [address] [place], [place] [phone] 12/24/2024 Richard Castro Mass in neck R22.1 ; Right shoulder pain, unspecified chronicity M25.511 and Preop examination Z01.818 Assessments Encounter Date Diagnosis (ICD Code) Assessment Notes Treatment Notes Treatment Clinical Notes Section Notes 12/24/2024 Mass in neck (ICD-10 - R22.1) THE ORDER WAS FAXED TO [facility] [place] [facility], pending diagnsotic testing 12/24/2024 Right shoulder pain, unspecified chronicity (ICD-10 - M25.511) 12/24/2024 Preop examination (ICD-10 - Z01.818) at this point i don't find anything medically to prevent his shoulder surgery if cleared by his twine winder Plan Of Treatment Treatment Notes Assessment Notes Mass in neck THE ORDER WAS FAXED TO [facility] [facility], pending diagnsotic testing Preop examination at this point i don' t find anything medically to prevent his shoulder surgery if cleared by his twine winder Pending Test Test Name Order Date US soft tiss head and/or neck 12/24/2024 Next Appt Details Follow Up: after us, Reason: Provider Name:Richard escamilla, 08/05/2025 08:15:00 AM, [address] [place] [address], [address], [phone], Provider Name:Richard saldivarr, 08/26/2025 01:45:00 PM, [address] [place] [address], [address], [phone], Provider Name:Richard escamilla, 07/07/2026 07:15:00 AM, [address] [place] [address], [address], [phone], Provider Name:Richard escamilla, 07/18/2026 01:00:00 PM, [address] [place] [address], [address], [phone], Progress Notes * Joselito HURD ADOB:[birth year] (74 yo M)Acc No.[id number]:12/24/2024 Patient: Joselito HANNA Provider: Del Castro MD :1950 A ge:74 Y S ex:Male Date:12/24/2024 Address:[address] [place], [place] [phone] Subjective: * Chief Complaints: * r shoulder DR Thomas 02-12-25 needs CBC BMP EKG going to Wood Casket Assembler 01-01-25 to be clearedPatient found a mass [...] his right side. went to Urgent on [address] H ave you had two or [...] his shoulder surgery if cleared by his twine winder * Procedure Codes: 3 6415 VENIPUNCT, ROUTINE* * Follow Up: a fter us * * Sign off status: Completed true * Provider: Del Castro MD Date: 0 12/24/2024 Generated for Per deleon/Amandeep/eTransmitting on: 1 10/03/2024 12:24 PM EST History and Physical Notes * [...] his right side. went to Urgent on [address]. Have you had two or more [...]
--- OUTSIDE RECORDS SUMMARY | 2025-01-15 04:25 | XMS_ITS ---
Author Organization Richard Castro MD Address [address] [place] [phone] Care Team Providers Care Base Loader Name Role Phone Richard Castro Primary Care Provider [phone] REASON FOR VISIT FYI US neck cancelled Encounters Encounter Location Date Provider Diagnosis Richard Castro MD 10 [facility] [address] [place] [phone] 01/15/2025 Richard Castro Plan Of Treatment Next Appt Details Provider Name:Richard escamilla, 08/05/2025 08:15:00 AM, [address] [place] [address], [address] [place] [address], [phone], Provider Name:Richard escamilla, 08/26/2025 01:45:00 PM, [address] [place] [address], [address] [place] [address], [phone], Provider Name:Richard Chatman ier, 07/07/2026 07:15:00 AM, [address], [address], [place], [phone], Provider Name:Richard Chatman ier, 07/18/2026 01:00:00 PM, [address], [address], [place], [phone], Progress Notes * Joselito HURD ADOB:[birth year] (74 yo M)Acc No.[id number]:01/15/2025 Patient: Joselito HANNA :1950 A ge:74 Y S ex:Male Address:[address] [place] [address] * true * Date: Generated for Per deleon/Amandeep/Malindaitting on: 10/03/2024 12:24 PM EST
--- OUTSIDE RECORDS SUMMARY | 2025-02-28 08:57 | XMS_ITS ---
Author Organization Richard Castro MD Address [address] [place] [address] [phone] Care Team Providers Care Technologist Development Name Role Phone Richard Castro Primary Care Provider REASON FOR VISIT discharge Encounters Encounter Location Date Provider Diagnosis Richard Castro MD 10 [facility] [address] [place] [address] [phone] 02/28/2025 Richard Castro Plan Of Treatment Next Appt Details Provider Name:Richard escamilla, 08/05/2025 08:15:00 AM, [address] [place] [address], [address], [phone], Provider Name:Richard escamilla, 08/26/2025 01:45:00 PM, [address] [place] [address], [address], [phone], Provider Name:Richard Chatman ier, 07/07/2026 07:15:00 AM, [address], [address], [place], [place], [phone], Provider Name:Richard Chatman ier, 07/18/2026 01:00:00 PM, [address], [address], [place], [place], [phone], Progress Notes * Joselito HURD ADOB:[birth year] (75 yo M)Acc No.[id number]:02/28/2025 Patient: Jose Joselito AKERS :1950 A ge:75 Y S ex:Male Address:[address] [place] [id number] * true * Date: Generated for Per deleon/Amandeep/Malindaitting on: 10/03/2024 12:23 PM EST
--- OUTSIDE RECORDS SUMMARY | 2025-07-05 02:30 | XMS_ITS ---
Author Organization Richard Castro MD Address [address] [place], [place] [phone] Care Team Providers Care Image Consultant Name Role Phone Richard Castro Primary Care Provider Results Component Value Reference Range Notes Complete Blood Count Auto Di ff Reviewed date:07/05/2025 12:57:53 PM Interpretation: Performing Lab:[facility], [address] [place] [phone] Notes/Report: White Blood Count 7.2 4.8-10.8 X10*3/uL [...] NRBC Abs Auto 0.000 0.0-0.012 X10*3/uL Comprehensive [place]. Panel Fa st Reviewed date:07/05/2025 04:22:31 PM Interpretation: Performing Lab:[facility], [address] [place] [phone] Notes/Report: Sodium 139 135-145 mmol/L Potassium 4.1 [...] Panel Reviewed date:07/05/2025 12:57:32 PM Interpretation: Performing Lab:[address] [address] Notes/Report: Triglycerides 61 <150 mg/dL Desirable Triglyceride: [...] (Free>4and<10) Reviewed date:07/05/2025 12:56:55 PM Interpretation: Performing Lab:[address] [address] Notes/Report: PSA,Total (Free>4and<10) 6.52 0.00-4.00 ng/mL PSA methodology: Burgess Alinity i Chemiluminescent Microparticle Immunoassay (CMIA) UA ClnCatch+Micro w/rflx Cul t Reviewed date:07/05/2025 04:23:00 PM Interpretation: Performing Lab:[address] [phone] Notes/Report: Urine, Clean Catch Color Urine Yellow Appearance Urine Clear PH 5.5 5.0-9.0 Glucose Urine UA Negative Negative mg/dL Urine Blood Small (1+) Negative Specific [place] - Urine 1.020 1.005-1.025 Urine Protein Negative [...] Location Date Provider Diagnosis Richard Castro MD [address] [place] [phone] 07/05/2025 Richard Castro Elevated PSA R97.20 ; [...] Details Provider Name:Richard escamilla, 08/05/2025 08:15:00 AM, [address] [place] [address], [phone], Provider Name:Richard escamilla, 08/26/2025 01:45:00 PM, [address] [place] [address], [phone], Provider Name:Richard escamilla, 07/07/2026 07:15:00 AM, [address] [place] [address], [phone], Provider Name:Richard escamilla, 07/18/2026 01:00:00 PM, [address] [place] [address], [phone], Progress Notes * Joselito HURD ADOB:[birth year] (75 yo M)Acc No.[id number]:07/05/2025 Progress Note Patient: Joselito HANNA Provider: Del Castro MD :1950 A ge:75 Y S ex:Male Date:07/05/2025 [facility] Subjective: * Chief Complaints: * 1 . [...] - 07/05/2025 07:30 AM) L AB: Comprehensive [place]. Panel Fast (Collection Date & Time - [...] * Procedure Codes: 3 6415 VENIPUNCT, ROUTINE*, 594[address] FLU VACCINE NO PRESERV 3 & >, [...] 1 09/04/2024 Generated for Per deleon/Amandeep/Maninder on: 10/03/2024 12:25 PM EST
--- OUTSIDE RECORDS SUMMARY | 2025-07-18 08:00 | XMS_ITS ---
Author Organization Richard Castro MD Address [address] [place], [place] [id number] Care Team Providers Care Database Specialist Name Role Phone Richard Castro Primary [...] Status Risk Notes Problem Melanoma of skin (43067174) Melanoma of skin (C43.9) Active confirmed Vital Signs Blood pressure systolic 92 mm Hg 07/18/20 25 Blood pressure diastolic 58 mm Hg 025 Height 70.50 in 07/18/2025 Weight 201 lbs 07/18/2025 BMI 28.43 kg/m2 07/18/2025 Encounters Encounter Location Date Provider Diagnosis Richard Castro MD [address] [place], [place] [phone] 07/18/2025 Richard Castro Hematuria R31.9 ; El [...] Up: 6 Weeks, Reason: Provider Name:Richard escamilla, 08/05/2025 08:15:00 AM, [address], [address], [place], [place], [phone], Provider Name:Richard Chatman ier, 08/26/2025 01:45:00 PM, [address] [facility], [address], [place], [phone], Provider Name:Richard Chatman ier, 07/07/2026 07:15:00 AM, [facility], [address], [place], [phone], Provider Name:Richard Chatman ier, 07/18/2026 01:00:00 PM, [facility], [address], [place], [phone], Progress Notes * Joselito HURD ADOB:[birth year] (75 yo M)Acc No.[id number]:07/18/2025 Patient: Joselito HANNA Provider: Del Castro MD :1950 A ge:75 Y S ex:Male Date:07/18/2025 Address:[address] [place], [place] [phone] Subjective: * Chief Complaints: * C omp [...] M elanoma of skin Notes: going to in derm to have idt removed some more * Procedure Codes: * Preventive Medicine: Counseling: C are goal follow-up plan: Michelle lojanseling for abnormal BMI provided?Yes, Neda way Normal BMI Follow-up Del cohen encouragement to exercise. * Follow Up: 6 Weeks * * Sign off status: Completed true * Provider: Del Castro MD Date: 09/18/2024 Generated for Per deleon/Amandeep/Kendricksmitting on: 10/03/2024 12:23 PM EST History and Physical Notes * [...]
--- OUTSIDE RECORDS SUMMARY | 2025-07-30 08:30 | XMS_ITS ---
Author Organization Richard Castro MD Address [address] [place], [place] [phone] Care Team Providers Care Seismograph Supervisor Name Role Phone Richard Castro Primary Care Provider Results Component Value Reference Range Notes Complete Blood Count Auto Di ff Reviewed date:07/30/2025 06:18:40 PM Interpretation: Performing Lab:[facility], [address] [place] [phone] Notes/Report: White Blood Count 7.3 4.8-10.8 X10*3/uL [...] Date Provider Diagnosis Richard Castro MD [address] [place] [address] [address] [place], [place] [phone] 07/30/2025 Richard Castro Anemia D64.9 Assessments Encounter Date Diagnosis (ICD Code) Assessment Notes Treatment Notes Treatment Clinical Notes Section Notes 07/30/2025 Anemia (ICD-10 - D64.9) order faxed to [facility] Reg to be done STAT Patient notified. Plan Of Treatment Treatment Notes Assessment Notes Anemia order faxed to [facility] at Reg to be done STAT Patient notified. Next Appt Details Provider Name:Richard escamilla, 08/05/2025 08:15:00 AM, [address] [place] [address], [address], [place], [place], [phone], Provider Name:Richard escamilla, 08/26/2025 01:45:00 PM, [address], [address], [place], [place], [phone], Provider Name:Richard Chatman ier, 07/07/2026 07:15:00 AM, [address], [address], [place], [phone], Provider Name:Richard Chatman ier, 07/18/2026 01:00:00 PM, [address] [facility], [address], [place], [place], [phone], Progress Notes * Joselito HURD ADOB:[birth year] (75 yo M)Acc No.[id number]:07/30/2025 Progress Note Patient: Joselito HANNA Provider: Del Castro MD :1950 A ge:75 Y S ex:Male Date:07/30/2025 Address:[address] [place] [address] Subjective: * Chief Complaints: * 1 . CBC. * Medical History: Objective: * Vitals: Assessment: * Assessment: 1. A nemia - D64.9 Plan: * Treatment: Notes: order faxed to [facility] pat Reg to be done STAT Patient notified.?? * * The named appointment provid er may or may not be the originator of this progress note, and it is not deemed complete until electronically signed by the appointment provider. Sign off status: Pending * Provider: Del Castro MD Date: 09/30/2024 Generated for Per deleon/Amandeep/eTransmitting on: 10/03/2024 12:24 PM EST
--- OUTSIDE RECORDS SUMMARY | 2025-07-30 10:15 | XMS_ITS ---
Author Organization Richard Castro MD Address [address] [place] [phone] Care Team Providers Care Blocker And Polisher Gold Wheel Name Role Phone Richard Castro Primary Care Provider Allergies No Known Allergies REASON FOR VISIT must see Medications Medication SIG (Take, Route, Frequency, Duration) Notes Start Date End Date Status Staxyn 10 MG 1 tablet on the tongue and allow to dissolve as needed Orally Once a day Not-Taking Amoxicillin 500 MG 1 capsule Orally every 8 hrs for 10 day(s) 05/15/2018 Not-Taking Xarelto 20 MG 1 tablet with food Orally Once a day Active Indomethacin 50 MG 1 capsule with food or milk Orally Three times a day for 10 days 10/07/2016 Not-Taking Tamsulosin HCl 0.4 MG 1 capsule [...] e a day for 30 day(s) Active Linezolid 600 MG 1 tablet Orally ever y 12 hrs Active Flecainide Acetate 150 MG 1 tablet Orall y every 12 hrs Active Co Q 10 100 MG 1 capsule with a nils l Orally Once a day Active Problems Problem Type SNOMED Code ICD Code Onset Dates Problem Status W/U Status Risk Notes Problem Anemia (292828053) Acute anemia (D64.9) Active confirmed Vital Signs Blood pressure systolic 98 mm Hg 07/30/20 25 Blood pressure diastolic 60 mm Hg 025 Height 70.50 in 07/30/2025 Weight 200 lbs 07/30/2025 BMI 28.29 kg/m2 07/30/2025 Encounters Encounter Location Date Provider Diagnosis Richard Castro MD [address] [place], [place] [phone] 07/30/2025 Richard Castro Acute anemia D64.9 ; Paroxysmal atrial fibrillation I48.0 ; 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 stool is negative today and he has not seen any bleeding.. seems it may have been from the bladder. 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 had large amounts of blood in the bowl. Plan Of Treatment Treatment Notes Assessment Notes Acute anemia will send to the er and have him evaluated/ seems mostlikely related to the urinary blleeding. stool is negative today and he has not seen any bleeding.. seems it may have been from the bladder. Paroxysmal atrial fibrillation is doing well at present 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 does not seem that it is the cause of th e anemia as only the hematocrit is low Hematuria he is in the process of evaluation. had large amounts of blood in the bowl. Next Appt Details Provider Name:Richard Garcia Lurdes ier, 08/05/2025 08:15:00 AM, [address] [place] [address], [address] [place] [address], [phone], Provider Name:Richard Garcia Grettaaneudy ier, 08/26/2025 01:45:00 PM, [address] [place] [address], [address] [place] [address], [phone], Provider Name:Richard Garcia Lurdes ier, 07/07/2026 07:15:00 AM, [address] [place] [address], [address] [facility], [place], [place], [phone], Provider Name:Richard Garcia Grettaaneudy ier, 07/18/2026 01:00:00 PM, [address] [place] [address], Suite [facility], [place], [place], [phone], Progress Notes * Joselito HURD ADOB:[birth year] (75 yo M)Acc No.[id number]:07/30/2025 Patient: Jose Joselito AKERS Provider: Del Castro MD :1950 A ge:75 Y S ex:Male Date:07/30/2025 Address:[address] [place], [place] [phone] Subjective: * Chief Complaints: * 1 . Must see. * HPI: S ymptom(s): pt is a 75 yo male here today bacause of blood with urination. * ROS: G eneral/Constitutional: Denies C hills. D enies F atigue. D enies F ever. D enies H eadache. E NT: Denies S ore throat. R espiratory: Denies C ough. D enies S hortness of breath at rest. A dmits S hortness of breath with exertion, a dmits very short of breath with exertion. G astrointestinal: Denies D iarrhea. D enies N ausea. * Medical History: C olonoscopy - done 10/30/[address] Fall due in 10 years, Elevated LDL cholesterol level, Elevated LDL cholesterol level, Biopsy of prostate neg 2008, History of syncope, Monroe score 1 in 2021. * Medications: T aking Linezolid 600 MG Tablet 1 tablet Orally every 12 hrs , Taking Cartia XT 120 MG Capsule Extended Release 24 Hour 1 capsule Orally Once a day , Taking Co Q 10 100 MG Capsule 1 capsule with a meal Orally Once a day , Taking Flecainide Acetate 150 MG Tablet 1 tablet Orally every 12 hrs , Taking Propranolol HCl ER 80 MG Capsule Extended Release 24 Hour TAKE ONE CAPSULE BY MOUTH ONCE DAILY , Taking Xarelto 20 MG Tablet 1 tablet with food Orally Once a day , Taking Tamsulosin HCl 0.4 MG Capsule 1 capsule Orally Once a day , Not-Taking/PRN Valtrex [...] Three times a day * Allergies: N .K.D.A. Objective: * Vitals: H t: 70.50, Wt: 200, BMI:28.29, BP:98/60, Wt-k.72. * P ast Orders: L ab:Erythrocyte Sedimentation Rate (Order Date - 07/29/2025) (Collection Date & Time - 07/29/2025 02:24 PM) Value Reference Range Erythrocyte Sedimentation Rate 15 1-20 - MM /HR L ab:Comprehensive Met. Panel (Order Date - 07/29/2025) (Collection Date & Time - 07/29/2025 02:24 PM) Value Reference Range Sodium 138 135-145 - mmol/L Bilirubin Total 0.4 0.0-1.0 - mg/dL Aspartate Amino Transferase 36 5-37 - U/L Alanine Aminotransferase 37 0-40 - U/L Total Protein 6.6 6.5-8.0 - g/dL Albumin Level 4.0 3.5-5.0 - g/dL Alkaline Phosphatase 112 39-117 - U/L Potassium 4.1 3.3-5.1 - mmol/L Chloride 105 96-108 - mmol/L Carbon Dioxide 24 22-29 - mmol/L Anion Gap 13 12-20 - Blood Urea Nitrogen 23 H 9-16 - mg/dL Creatinine 1.13 0.5-1.4 - mg/dL Estimated Glomerular Filt Rate > 60 - Glucose Random 135 H 60-115 - mg/dL Calcium 8.8 8.4-10.2 - mg/dL L ab:C Reactive Protein (Order Date - 07/29/2025) (Collection Date & Time - 07/29/2025 02:24 PM) Value Reference Range C Reactive Protein 1.19 H < or = 0.50 - mg/dL * Examination: G eneral Examination: GENERAL APPEARANCE: a lert, well hydrated, in no distress.? HEAD: n ormocephalic. SKIN: g ood turgor. HEART: r egular rate and rhythm, no murmurs, rubs, gallops.? LUNGS: n o wheezes, rales, rhonchi, good air movement, clear to auscultation bilaterally. RECTAL EXAM: s tool guaiac negative. Assessment: * Assessment: 1. A cute anemia - D64.9 (Primary) 2 . P aroxysmal atrial fibrillation - I48.0 3 . L arge cell lymphoma of lymph nodes of multiple sites - C85.88 ? 4 . H ematuria - R31.9 Plan: * Treatment: 2. P aroxysmal atrial fibrillation Notes: is doing well at present 3. L arge cell lymphoma of lymph nodes of multiple sites Notes: does not seem that it is the cause of the anemia as only the hematocrit is low 4. H ematuria Notes: he is in the process of evaluation. had large amounts of blood in the bowl. * Procedure Codes: G 2211 Complex e/m visit add on * * The named appointment provid er may or may not be the originator of this progress note, and it is not deemed complete until electronically signed by the appointment provider. Sign off status: Pending * Provider: Del Castro MD Date: 09/30/2024 Generated for Per deleon/Amandeep/Malindaitting on: 10/03/2024 12:23 PM EST History and Physical Notes * HPI (History of Present Illness) Category Sub-Category Detail Notes Category Not es Symptom(s) pt is a 75 yo m howard here today bacause of blood with urination Examination Category Sub-Category Detail Notes Category Not es General Examination GENERAL APPEARANCE: alert, w ell hydrated, in no distress HEAD: normocephalic HEART: regular rate and rhy thm, no murmurs, rubs, gallops LUNGS: no wheezes, rales, r honchi, good air movement, clear to auscultation bilaterally SKIN: good turgor RECTAL EXAM: stool guaiac negativ e
--- OUTSIDE RECORDS SUMMARY | 2025-08-01 05:03 | XMS_ITS ---
Author Organization Richard Castro MD Address [address] [place] [phone] Care Team Providers Care Daycare Manager Name Role Phone Richard Castro Primary Care Provider [phone] REASON FOR VISIT ER visit rec'd Encounters Encounter Location Date Provider Diagnosis Richard Castro MD [facility] [address] [place] [phone] 08/01/2025 Richard Castro Plan Of Treatment Next Appt Details Provider Name:Richard escamilla, 08/05/2025 08:15:00 AM, [address] [place] [address], [address] [place] [address], [phone], Provider Name:Richard escamilla, 08/26/2025 01:45:00 PM, [address] [place] [address], [address], [phone], Provider Name:Richard Chatman ier, 07/07/2026 07:15:00 AM, [address], [address], [place], [phone], Provider Name:Richard Chatman ier, 07/18/2026 01:00:00 PM, [address], [address], [place], [phone], Progress Notes * Joselito HURD ADOB:[birth year] (75 yo M)Acc No.[id number]:08/01/2025 Patient: Joselito HANNA :1950 A ge:75 Y S ex:Male Address:[address] [place] [id number] * true * Date: Generated for Per deleon/Amandeep/Malindaitting on: 10/03/2024 12:24 PM EST
--- OUTSIDE RECORDS SUMMARY | 2025-08-02 02:30 | XMS_ITS ---
Author Organization Richard Castro MD Address [address] [place], [place] [phone] Care Team Providers Care Data Security Consultant Name Role Phone Richard Castro Primary Care Provider [phone] Results Component Value Reference Range Notes Complete Blood Count Auto Di ff (Not yet reviewed by provider) Interpretation: Performing Lab:[facility], [address] [place] [phone] Notes/Report: White Blood Count 6.8 4.8-10.8 X10*3/uL [...] Date Provider Diagnosis Richard Castro MD [address] [place] [address] [place] [phone] 08/02/2025 Richard Castro Anemia D64.9 Assessments Encounter Date Diagnosis (ICD Code) Assessment Notes Treatment Notes Treatment Clinical Notes Section Notes 08/02/2025 Anemia (ICD-10 - D64.9) Plan Of Treatment Pending Test Test Name Order Date Complete Blood Count Auto Diff Next Appt Details Provider Name:Richard escamilla, 08/05/2025 08:15:00 AM, [address] [place] [address], [address] [place], [place], [phone], Provider Name:Richard escamilla, 08/26/2025 01:45:00 PM, [address] [place] [address], [address] [place], [place], [phone], Provider Name:Richard escamilla, 07/07/2026 07:15:00 AM, [address], [address], [place], [phone], Provider Name:Richard Chatman ier, 07/18/2026 01:00:00 PM, [address], [address], [place], [phone], Progress Notes * Joselito HURD ADOB:[birth year] (75 yo M)Acc No.[id number]:08/02/2025 Progress Note Patient: Joselito HANNA Provider: Del Castro MD :1950 A ge:75 Y S ex:Male Date:08/02/2025 Address:[address] [place], [place] [phone] Subjective: * Chief Complaints: * 1 . CBC. * Medical History: Objective: * Vitals: Assessment: * Assessment: 1. A nemia - D64.9 (Primary) Plan: * Treatment: * * The named appointment provid er may or may not be the originator of this progress note, and it is not deemed complete until electronically signed by the appointment provider. Sign off status: Pending * Provider: Del Castro MD Date: 10/03/2024 Generated for Per deleon/Amandeep/Malindaitting on: 10/03/2024 12:24 PM EST
--- OUTSIDE RECORDS SUMMARY | 2025-08-02 04:43 | XMS_ITS ---
Author Organization Richard Castro MD Address [address] [place] [phone] Care Team Providers Care Base Cloth Inspector Name Role Phone Richard Castro Primary Care Provider REASON FOR VISIT ER summary rec'd Encounters Encounter Location Date Provider Diagnosis Richard Castro MD 10 [facility] [address] [place] [phone] 08/02/2025 Richard Castro Plan Of Treatment Next Appt Details Provider Name:Richard escamilla, 08/05/2025 08:15:00 AM, [address] [place] [address], [address] [place] [address], [phone], Provider Name:Richard escamilla, 08/26/2025 01:45:00 PM, [address] [place] [address], [address], [phone], Provider Name:Richard Chatman ier, 07/07/2026 07:15:00 AM, [address], [address], [place], [phone], Provider Name:Richard Chatman ier, 07/18/2026 01:00:00 PM, [address], [address], [place], [phone], Progress Notes * Joselito HURD ADOB:[birth year] (75 yo M)Acc No.[id number]:08/02/2025 Patient: Joselito HANNA :1950 A ge:75 Y S ex:Male Address:[address] [place] [address] * * Date:
[2025-08-02 10:43] LABS: MANUAL DIFF FLAG NO
[2025-08-02 10:45] LABS: Hematocrit 25.1 % (42.0-52.0); Hemoglobin 8.4 g/dl (14.0-18.0); Imm Gran Abs Auto 0.02 X10*3/uL (0.00-0.03); Imm Gran Pct Auto 0.3 % (0.0-0.4); Lymphocytes Absolute Auto 1.9 X10*3/uL (1.2-4.9); Mean Corpuscular HGB Conc 33.5 g/dl (31.0-36.0); Mean Corpuscular Hemoglobin 29.9 pg (27.0-33.0); Mean Corpuscular Volume 89.3 fL (80.0-98.0); NRBC Abs Auto 0.020 X10*3/uL (0.0-0.012); NRBC Pct Auto 0.3 /100WBC (0.0-0.2); Platelet Count 232 X10*3/uL (160-400); Red Blood Count 2.81 X10*6/uL (4.60-5.80); White Blood Count 6.8 X10*3/uL (4.8-10.8)
--- OUTSIDE RECORDS SUMMARY | 2025-08-02 12:24 | XMS_ITS | Encounter Summary ---
Author Organization [facility] Address [address] [facility] [address] [place] [address] Phone Care Team Providers Care Can Tester Name Role Phone Richard Castro MD Primary Care Provider Encounter Details Date Type Department Care Team (Latest Contact Info) Description 06/04/2017 Ancillary Orders [facility] [address] [place] [address] 3rd Floor, [address] [place] [address] Av Orozco MD [address] [place] [address] Diagnosis unknown Social History Tobacco Use Types [...] Description 09/13/2025 10:00 AM EST Office Visit [facility] [address] [place] 3rd Floor, [address] [place] [address] Roxy Burnette DNP [address] [place] [address], [address] [address] documented as of this encounter Visit Diagnoses Diagnosis Diagnosis unknown documented in this encounter Care Teams Can Tester Relationship Specialty Start Date End Date Richard Castro MD [address] [place] [address] Dr Chaudhary, [place] [address] PCP - General 06/02/17 documented as of this encounter Additional Source Comments The information contained in this document represents components of the legal health record. It is not the complete legal health record.[facility]
--- OUTSIDE RECORDS SUMMARY | 2025-08-02 12:24 | XMS_ITS | Encounter Summary ---
Author Organization [facility] Address [address] [facility] [address] [place] [address] Phone Care Team Providers Care Results Engineer Name Role Phone Richard Castro MD Primary Care Provider Encounter Details Date Type Department Care Team (Late Contact Info) Description 08/26/2022 Procedure Pass [facility] [address] [place] [address] Social History Tobacco Use Types Packs/Day Years [...] Description 09/13/2025 10:00 AM EST [facility] 22 [facility] 3rd Floor, [address] [place] [address] Roxy Burnette DNP 22 [facility], [address] [address] [email or web address] documented as of this encounter Visit Diagnoses Not on filedocumented in this encounter Care Teams Results Engineer Relationship Specialty Start Date End Date Richard Castro MD [address] [place] [address] [place] [address] PCP - General 06/02/17 documented as of this encounter Additional Source Comments The information contained in this document represents components of the legal health record. It is not the complete legal health record.[facility]
--- OUTSIDE RECORDS SUMMARY | 2025-08-02 12:24 | XMS_ITS | Encounter Summary ---
Author Organization [facility] Address [address] [place] [address] Care Team Providers Care Manager Clinical Name Role Phone Richard Castro MD Primary Care Provider Encounter Details Date Type Department Care Team (Late st Contact Info) Description 07/25/2025 Lab Requisition [facility] [address] [facility] [place] [address] Nikolay Marcano, TAY [address] [place] [address] Gross hematuria Social History Tobacco Use Types [...] AM EST) Final Diagnosis A. Urine, Voided, [id number]: Negative for high grade urothelial carcinoma. Results of UroVysion fluorescence in situ hybridization (FISH) testing: CEP3: Normal CEP7: Normal CEP17: Normal LSI 9p21: Normal Interpretation: Normal profile Controls stained appropriately. Note: The results are intended as a screening device and should be interpreted in association with other clinical and pathological findings. 08/01/2025 12:55 PM EST [facility] at 1255 EST Specimen A Adequacy Satisfactory for evaluation 08/01/2025 12:55 PM EST [facility] Clinical Information Gross hematuria R31.0 Urine Cytology/FISH (now) 08/01/2025 12:55 PM EST [facility] Gross Description A. Urine, Voided, [id number]: Received one ThinPrep slide for cytology and one ThinPrep slide for UroVysion FISH 08/01/2025 12:55 PM [facility] Disclaimer Unless otherwise specified, all tissue is 10% NB formalin fixed and paraffin embedded. Technical pathology services provided by [facility] [address] [facility] [address] [place] [address] (CLIA #[id number]/Shwetha Tran MD, Drafter Chief Design) 08/01/2025 12:55 PM EST [facility] Urine Urine specimen from urethra / Unknown 07/19/2025 07/25/2025 1:35 PM EST [facility] LAB CYTOLOGY ORDERABLES Final R esult [facility] [address] [place] [address], documented in this encounter Visit Diagnoses Diagnosis Gross hematuria documented in this encounter Care Teams Manager Clinical Relationship Specialty Start Date End Date Richard Castro MD [address] [place] [address] [address] [place] [address] PCP - General Internal Medicine 07/19/25 documented as of this encounter
--- OUTSIDE RECORDS SUMMARY | 2025-08-02 12:24 | XMS_ITS | Clinical Summary ---
Author Organization [facility] Address [address] [address] Phone Care Team Providers Care Silo Filler Name Role Phone Richard Castro MD [...] and now has another point to his [id number] score now making him by 2 which [...] Type Department Care Team Description 06/18/2025 Telephone [facility] [address]rd Floor, [address] [place] [address] Jeniffer Joseph DNP 05/17/2025 1:20 PM EDT Office Visit [facility] [address] 3rd Floor, [address] [place] [address] Dianelys Fonseca MD Paroxysmal atrial fibrillation (Primary Dx); Current use of care home anticoagulation 05/13/2025 4:00 PM EDT Office Visit [facility] [place] [address] [address] 3rd Floor, [address] [place] [address] Kyle Montanez MD Other chest pain (Primary [...] Office Visit [facility] [address] [place] [address] 3rd [facility], [address] [place] [address] Roxy Burnette DNP [address] [place] [address], [address] [address] Health Maintenance Due Date Last Done Comments [...] this topic Medical Devices Implanted Type Area Cement Storage Worker Device Identifier Shelf Expiration Date Model [...] EST) SODIUM 138 133 - 146 mmol/L [facility] CHLORIDE 102 96 - 108 mmol/L [facility] POTASSIUM 4.8 3.3 - 5.1 mmol/L [facility] CO2 27 21 - 35 mmol/L [facility] BUN 21(H) 6 - 19 mg/dL [facility] CREATININE 1.10 0.5 - 1.5 mg/dL [facility] GLUCOSE 93 70 - 99 mg/dL [facility] CALCIUM 9.2 8.4 - 10.3 mg/dL [facility] EGFR 71 >59 mL/min/1.7 3m2 [facility] Comment:Estimated glomerular filtration rate calculated using the CKD-EPI refit equation. ANION GAP 14 10 - 20 mmol/L [facility] Blood 09/10/2022 11:1 3 AM EST 09/10/2022 4:07 PM EST us Edenilson Stapleton MD LAB BLOOD BKR ORDERABLES Fin al Result [facility] [address] [place], [place] [phone] from Last 3 Months or Most Recently Relevant to Health Maintenance Insurance [employer] SUPPLEMENT MEDICARE PART A & B Member Subscriber Plan / Payer (Ef fective 2014-Present) Name:Roosevelt Hurd Member ID:[id number] Relation to Subscriber:Self Name:Roosevelt Hurd Subscriber ID:[id number] Payer ID:[id number] Group ID:Not on file Type:Medicare Address: [employer] [facility] [address] [address] [employer] MED[employer] SUPPLEMENT MEDICARE PART A & B [employer]_ [employer] MEDEX SUPPLEMENT MEDICARE PART A & B MEDICARE PART A & B [employer] SUPPLEMENT MEDICARE PART A & B [employer] MEDEX SUPPLEMENT MEDICARE PART A & B [employer] CROSS MEDEX SUPPLEMENT MEDICARE PART A & B [employer] CROSS MEDEX SUPPLEMENT MEDICARE PART A & B [employer] CROSS MEDEX SUPPLEMENT MEDICARE PART A & B Member Subscriber Plan / Payer ( fective 2014-Present) Name:Roosevelt Hurd Member ID:[id number] Relation to Subscriber:Self Name:Roosevelt Hurd Subscriber ID:[id number] Payer ID:[id number] Group ID:Not on file Type:Medicare Address: [facility] [employer] [facility] [address] [facility] [place] [address] Care Teams Silo Filler Relationship Specialty Start Date End Date Richard Castro MD [address] [place] [address] [place] [address] PCP - General 06/02/17 Additional Source Comments The information contained in this document represents components of the legal health record. It is not the complete legal health record.[facility]
--- OUTSIDE RECORDS SUMMARY | 2025-08-02 12:24 | XMS_ITS | Clinical Summary ---
Author Organization 299 [facility] Address [address] [place] [address] Phone Care Team Providers Care Biological Science Technician Name Role Phone Richard Castro MD Primary Care Provider Encounters Date Type Department Care Team Description 07/25/2025 Lab Requisition [facility] [address] [place] [address] Nikolay Marcano PA Gross hematuria 07/19/2025 Lab Requisition [facility] [address] [place] [address] Nikolay Marcano PA Gross hematuria [...] Culture urine (07/19/2025 1:15 PM EST) Pathologist [facility] Culture, Urine No growth 07/20/2025 1:59 PM EST [facility] Urine Urine specimen obtained by clean catch procedure / Unknown 07/19/2025 1:15 PM EST 07/19/2025 6:23 PM EST [facility] MICROBIOLOGY - GENERAL ORDE RABLES Final Result [facility] [address] [place] [address], * Non-gynecologic cytology (07/19/2025 12:00 AM EST) Final Diagnosis A. Urine, Voided, [id number]: Negative for high grade urothelial carcinoma. Results of UroV[employer]ion fluorescence in situ hybridization (FISH) testing: CEP3: Normal CEP7: Normal CEP17: Normal LSI 9p21: Normal Interpretation: Normal profile Controls stained appropriately. Note: The results are intended as a screening device and should be interpreted in association with other clinical and pathological findings. 08/01/2025 12:55 PM [facility] at 1255 EST Specimen A Adequacy Satisfactory for evaluation 08/01/2025 12:55 PM [facility] Clinical Information Gross hematuria R31.0 Urine Cytology/FISH (now) 08/01/2025 12:55 PM [facility] Gross Description A. Urine, Voided, [id number]: Received one ThinPrep slide for cytology and one ThinPrep slide for UroVysion FISH 08/01/2025 12:55 PM [facility] Disclaimer Unless otherwise specified, all tissue is 10% NB formalin fixed and paraffin embedded. Technical pathology services provided by [facility] at [address], [place] [address] (CLIA #[id number]/Shwetha Tran MD, Drawbench Operator) 08/01/2025 12:55 PM [facility] Urine Urine specimen from urethra / Unknown 07/19/2025 07/25/2025 1:35 PM EST [facility] CYTOLOGY ORDERABLES Final R esult [facility] [address] [place] [address], from Last 3 Months Insurance MEDICARE [id number] Care Teams Biological Science Technician Relationship Specialty Start Date End Date Richard Castro MD [address] [facility] [address] [place] [address] PCP - General Internal Medicine 07/19/25
--- OUTSIDE RECORDS SUMMARY | 2025-08-02 12:24 | XMS_ITS | Encounter Summary ---
Author Organization [facility] Address [address] [place] [address] Phone Care Team Providers Care Sharepoint Manager Name Role Phone Richard Castro MD Primary Care Provider Encounter Details Date Type Department Care Team (Latest Contact Info) Description 11/15/2017 Ancillary Orders [facility] [address], [address] [place] [address] [phone] Av Orozco MD [address] [place] [phone] Paroxysmal atrial fibrillation Social History Tobacco Use [...] Description 09/13/2025 10:00 AM EST Office Visit [facility] [address], [address] [place] [address] [phone] Roxy Burnette DNP [address] [facility], [address] [phone] documented as of this encounter Results * TTE COMPREHENSIVE (11/17/2017 10:06 AM EDT) Anatomical Region Laterality Modality Heart Ultrasound us Av Orozco MD CV ECHO ORDERABLES Final Result documented in this encounter Visit Diagnoses Diagnosis Paroxysmal atrial fibrillation Atrial fibrillation documented in this encounter Care Teams Sharepoint Manager Relationship Specialty Start Date End Date Richard Castro MD [address] [place] [address] [place] [address] PCP - General 06/02/17 documented as of this encounter Additional Source Comments The information contained in this document represents components of the legal health record. It is not the complete legal health record.[facility]
--- OUTSIDE RECORDS SUMMARY | 2025-08-02 12:24 | XMS_ITS | Encounter Summary ---
Author Organization [facility] Address [address] [place] [address] Care Team Providers Care Movable Bulkhead Installer Name Role Phone Richard Castro MD Primary Care Provider Encounter Details Date Type Department Care Team (Late st Contact Info) Description 07/19/2025 Lab Requisition [facility] [address] [place] [address] Nikolay Marcano, TAY [address] [place] [address] Gross hematuria Social History Tobacco Use Types [...] Urine No growth 07/20/2025 1:59 PM EST [facility] Urine Urine specimen obtained by clean catch procedure / Unknown 07/19/2025 1:15 PM EST 07/19/2025 6:23 PM EST us [facility] MICROBIOLOGY - GENERAL VANESSA KULKARNI Final Result [facility] [address] [place] [address], documented in this encounter Visit Diagnoses Diagnosis Gross hematuria documented in this encounter Care Teams Movable Bulkhead Installer Relationship Specialty Start Date End Date Richard Castro MD [address] [place] [address] [place] [id number] PCP - General Internal Medicine 07/19/25 documented as of this encounter
--- OUTSIDE RECORDS SUMMARY | 2025-08-02 12:25 | XMS_ITS | Encounter Summary ---
Author Organization [facility] Address [address] [facility] [address] [place] [phone] Phone Care Team Providers Care Crotch Breaker Name Role Phone Richard Castro MD Primary Care Provider Encounter Details Date Type Department Care Team (Late st Contact Info) Description 12/12/2020 Procedure Pass [facility] [address] [place] [address] Social History Tobacco Use Types Packs/Day Years [...] 10:00 AM EST Office Visit [facility] [address] [facility] [address], [address] [place], [place] [phone] Roxy Burnette DNP [address] [facility] [address] [place], [place] [phone] [email or web address] documented as of this encounter Visit Diagnoses Not on filedocumented in this encounter Care Teams Crotch Breaker Relationship Specialty Start Date End Date Richard Castro MD [address] [place] [address] [place] [address] PCP - General 06/02/17 documented as of this encounter Additional Source Comments The information contained in this document represents components of the legal health record. It is not the complete legal health record.[facility]
--- OUTSIDE RECORDS SUMMARY | 2025-08-02 12:25 | XMS_ITS | Patient Health Record ---
Author Organization Richard Castro MD Address [address] [place], [place] [id number] Care Team Providers Care Metal Hanging Supervisor Name Role Phone Richard Castro Primary Care Provider Allergies No Known Allergies Results Component Value Reference Range Notes Complete Blood Count Auto Di ff Reviewed date:07/05/2025 12:57:53 PM Interpretation: Performing Lab:[facility], [address] [place] [phone] Notes/Report: White Blood Count 7.2 4.8-10.8 X10*3/uL [...] NRBC Abs Auto 0.000 0.0-0.012 X10*3/uL Comprehensive [place]. Panel Fa st Reviewed date:07/05/2025 04:22:31 PM Interpretation: Performing Lab:[facility], [address] [place] [address] Notes/Report: Sodium 139 135-145 mmol/L Potassium 4.1 [...] Panel Reviewed date:07/05/2025 12:57:32 PM Interpretation: Performing Lab:[address] [address] Notes/Report: Triglycerides 61 <150 mg/dL Desirable Triglyceride: [...] (Free>4and<10) Reviewed date:07/05/2025 12:56:55 PM Interpretation: Performing Lab:[address] [address] Notes/Report: PSA,Total (Free>4and<10) 6.52 0.00-4.00 ng/mL PSA methodology: Burgess Alinity i Chemiluminescent Microparticle Immunoassay (CMIA) UA ClnCatch+Micro w/rflx Cul t Reviewed date:07/05/2025 04:23:00 PM Interpretation: Performing Lab:[address] [address] Notes/Report: Urine, Clean Catch Color Urine Yellow Appearance Urine Clear PH 5.5 5.0-9.0 Glucose Urine UA Negative Negative mg/dL Urine Blood Small (1+) Negative Specific [place] - Urine 1.020 1.005-1.025 Urine Protein Negative [...] (Not yet reviewed by provider) Interpretation: Performing Lab:[facility], [address] [place] [phone] Notes/Report: White Blood Count 6.8 4.8-10.8 X10*3/uL [...] 0.0-0.2 /100WBC Neutrophils Absolute Auto 4.1 2.0-8.3 x10*3/uL Imm Gran Abs Auto 0.02 0.00-0.03 X10*3/uL Lymphocytes Absolute Auto 1.9 1.2-4.9 X10*3/uL Monocytes Absolute Auto 0.7 0.1-1.2 X10*3/uL Eosinophils Absolute Auto 0.1 0.0-0.4 X10*3/uL Basophils Absolute Auto 0.0 0.0-0.2 X10*3/uL NRBC Abs Auto 0.020 0.0-0.012 X10*3/uL Complete Blood Count Auto Di ff Reviewed date:12/24/2024 05:16:55 PM Interpretation: Performing Lab:[facility], [address] [place] [phone] Notes/Report: White Blood Count 8.2 4.8-10.8 X10*3/uL [...] Reviewed date:12/24/2024 05:16:08 PM Interpretation: Performing Lab:[facility], [address] [place] [phone] Notes/Report: Sodium 137 135-145 mmol/L Potassium 4.2 [...] date:12/19/2024 05:35:49 PM Interpretation: Performing Lab: Notes/Report: [place] [address] [address] Scan Report Signed Patient: Joselito Hurd Sr MR#: [id number] : 1950 Acct:[id number] Age/Sex: 74 / M ADM Date: 12/17/24 Loc: HO.CT Attending Dr: Js Marquez PA-C Ordering Physician: Js Marquez PA-C Date of Service: 12/17/24 Procedure(s): CT shoulder RT wo IV con Accession Number(s): [id number] cc: Richard Castro MD; Js Marquez PA-C Report Number: [id number]: Total DLP = 283.00 mGy-cm CLINICAL HISTORY: [...] in OV> 12/19/24913 DD/ 2 TD/TT: 12/19/24912 Iron Piler: [place] [address] CT Scan Report Signed Patient: Flavia Hurd MR#: [id number] : 1950 Acct:[id number] Age/Sex: 74 / M ADM Date: 12/17/24 Loc: HO.CT Attending Dr: Justino Marquez PA-C Ordering Physician: Js Marquez PA-C Date of Service: 12/17/24 Procedure(s): CT staci obrien RT wo IV con Accession Number(s): [id number] cc: Rcihard Castro MD; Js Marquez PA-C Report Number: [id number]: Total DLP = 283.00 mGy-cm CLINICAL HISTORY: M1 2.819 - Other specific arthropathies, not elsewhere classified, unspec... --- Additional Notes or Special Instructions: PRe op planning Exam: [facility] shoulder without intravenous contrast. Comparison: MRI [...] By: Gurdeep Reaves MD Signed By: <Caty icamarii signed by Gurdeep Reaves MD in OV> 12/19/24913 DD/ 2 TD/TT: 12/19/24912 Iron Piler: MRSA Nasal Screen Reviewed date:01/29/2025 05:00:18 PM Interpretation: Performing Lab:[facility], [address] [place] [phone] Notes/Report: MRSA Nasal PCR NEGATIVE Negative SA Nasal PCR NEGATIVE Negative MRSA Interpretation SEE NOTE MRSA target DNA not detected; SA target DNA not detected. A MRSA NEGATIVE, SA NEGATIVE test result does not preclude MRSA or SA nasal colonization. Complete Blood Count Auto Di ff Reviewed date:02/21/2025 05:04:30 PM Interpretation: Performing Lab:[facility], [address] [place] [phone] Notes/Report: White Blood Count 5.4 4.8-10.8 X10*3/uL [...] Panel Reviewed date:02/21/2025 04:13:13 PM Interpretation: Performing Lab:[address] [address] Notes/Report: Sodium 138 135-145 mmol/L Potassium 4.5 [...] Screen Reviewed date:02/21/2025 04:00:33 PM Interpretation: Performing Lab:[address] [place] [address] Notes/Report: Spec expiration changed by ARPITA on 02/21/25 Reason: PAT NURSING: Call Blood Bank (ext. [phone]) to band patient on admission. Type and Screen in effect until 2300 on 02/26/25 Witnessed by PORTERS Blood Type AP Antibody Screen NEGATIVE Hemoglobin and Hematocrit Reviewed date:02/26/2025 12:28:58 PM Interpretation: Performing Lab:[facility], [address] [place] [phone] Notes/Report: Hemoglobin 13.7 14.0-18.0 g/dl Hematocrit 40.8 42.0-52.0 % Pathology Reviewed date:02/28/2025 05:07:11 PM Interpretation: Performing Lab:[facility], [address] [place] [phone] Notes/Report: ------ Name: Joselito Hurd Sr Age/Sex: 75/M : 1950 Unit#: [id number] Attend Dr: Clint Thomas MD Re02/26/25 Status : [facility] Location: [facility] Disch: ------ SPEC : [id number] RECD : 02/27/250749 STATUS: EARNEST WALLER NUM: [id number] KRISTINA: 02/26/25-[address] [facility] [address]: Clint Thomas MD ENTERED: 02/27/25- 53 [...] yet, brittle, tapia-yellow with yellow-pink bone marrow. Tube Worker secti ons are submitted in a cassette labeled A1 following decalcification. CEDS IHC S/NG Disclaimer NOTE: Unless otherwi se stated, all tissue is formalin-fixed and paraffin-embedded. Some or all of the immunohistochemical tests reported herein may have been developed and their performance characteristics determined by [facility]. They have not been cleared or appr saima by the U.S. Food and Drug Administration (FDA). However, the FDA has determined that such clearance or approval is not necessary. This laboratory is certified under the Clinical Laboratory Improvement Amendments of 1988 (CLIA) as qualified to perform high comp lexity clinical laboratory testing. Copies To: Richard Castro MD [facility] [address] [place] [address] CONTINUED ON NEXT PAGE ------ Name: VannessaJoselito Sr Age/Sex: 75/M : 1950 Unit#: [id number] Attend Dr: Clint Thomas MD Re02/26/25 Status : [facility] Location: [facility] Disch: ------ SPEC : [id number] RECD : 02/27/25 STATUS: EARNEST WALLER NUM: [id number] KRISTINA: 02/26/[address] [facility] [address]: Clint Thomas MD ENTERED: 02/27/25 53 SP TYPE: Surgical OTHR DR: Richard Castro MD ORDERED: Gross Micro L3, Decal Copies To: (Continued) Clint Thomas MD [facility] [address] [place] [address] Dr [address] [place] [address] ------ Signed (signature on file) Leon Keene MD 02/28/25 1146 ------ END OF REPORT XR shoulder RT 1V Reviewed date:02/26/2025 05:10:31 PM Interpretation: Performing Lab: Notes/Report: [address] [address] XRay Report Signed Patient: Joselito Hurd Sr MR#: [id number] : 1950 Acct:[id number] Age/Sex: 75 / M ADM Date: 02/26/25 Loc: HO.S3 345-[address]: Clint Thomas MD Ordering Physician: Js Marquez PA-C Date of Service: 02/26/25 Procedure(s): XR shoulder RT 1V Accession Number(s): [id number] cc: Richard Castro MD; Js Marquez PA-C [...] 02/26/25 1702 DD/ 1539 TD/TT: 02/26/25 1642 Iron Piler: [address] [address] XRay Report Signed Patient: Flavia Hurd Sr MR#: [id number] : 1950 Acct:[id number] Age/Sex: 75 / M ADM Date: 02/26/25 Loc: HO.S3 345-[address]: Clint ellison MD Ordering Physician: Js Marquez PA-C Date of Service: 02/26/25 Procedure(s): XR staci ulder RT 1V Accession Number(s): [id number] cc: Richard Castro MD; Meuse,Ta-Katherin PA-C EXAMINATION: XR SHOULDER, RIGHT CLINICAL INFORMATION: [...] 02/26/25 1702 DD/ 1539 TD/TT: 02/26/25 1642 Iron Piler: Complete Blood Count Auto Di ff Reviewed date:02/27/2025 04:10:37 PM Interpretation: Performing Lab:[facility], [address] [place] [phone] Notes/Report: White Blood Count 11.9 4.8-10.8 X10*3/uL [...] g Reviewed date:02/27/2025 04:01:26 PM Interpretation: Performing Lab:[address] [address] Notes/Report: Sodium 136 135-145 mmol/L Potassium 4.2 [...] Reviewed date:06/20/2025 05:05:21 PM Interpretation: Performing Lab:[facility], [address] [place] [phone] Notes/Report: RIGHT SHOULDER PER R/O C.ACNES RT SHOULDER Gram stain Gram stain results: Gram stain 4+ polys Gram stain 4+ red blood cells Gram stain No organisms seen Routine Culture Reviewed date:06/20/2025 03:38:27 PM Interpretation: Performing Lab:[facility], [address] [place] [phone] Notes/Report: RIGHT SHOULDER PER R/O C.ACNES RT SHOULDER Routine Culture No growth after 2 days Anaerobic Culture Reviewed date:06/20/2025 03:38:01 PM Interpretation: Performing Lab:[facility], [address] [place] [phone] Notes/Report: RIGHT SHOULDER PER R/O C.ACNEVani RT SHOULDER O:CUTIAC Cutibacterium acnes Anaerobic Culture B-Lac Susc (reported) Anaerobic Culture Beta-lactamase not produced; suggests PEN/AMP susceptibility Anaerobic Culture Quant Org ID Anaerobic Culture 1+ Liver Panel Reviewed date:06/27/2025 04:46:56 PM Interpretation: Performing Lab:[facility], [address] [place] [phone] Notes/Report: Bilirubin Total 0.2 0.0-1.0 mg/dL Bilirubin Direct < 0.2 0.0-0.5 mg/dL Aspartate Amino Transferase 26 5-37 U/L Alanine Aminotransferase 30 0-40 U/L Total Protein 7.4 6.5-8.0 g/dL Albumin Level 4.0 3.5-5.0 g/dL Alkaline Phosphatase 108 39-117 U/L PSA Free and Total Reviewed date:07/08/2025 05:47:31 PM Interpretation: Performing Lab:[facility], [address] [place] [address] Notes/Report: Prostate Specific Ag Total 6.3 < OR = 4.0 ng/mL Percent Free Prostate Spec Ag 22 >25 % (calc) PSA(ng/mL) Free PSA(%) Estimated(x) Probability of Cancer(as%) 0-2.5 (*) Approx. 1 2.6-4.0(1) 0-27(2) 24(3) 4.1-10(4) 0-10 56 11-15 28 16-20 20 21-25 16 >or =26 8 >10(+) N/A >50 References:(1)Moses na et al.:Urology 60: 469-474 (2002) (2)Caden et al.:J.Urol 168: 922-925 (2002) Free PSA(%) Sensitivity(%) Specificity(%) < or = 25 85 19 < or = 30 93 9 (3)Catalona et al.:MICHI 277: 9393-2111 (1996) (4)Catalona et al.:MICHI 279: 8676-7287 (1997) (x)These estimates vary with age, ethnicity, [...] of disease. THIS TEST WAS PERFORMED AT: [facility] [address] [place] [phone] CLAUS SEALS MD Free Prostate Spec Ag 1.4 Liver Panel Reviewed date:07/21/2025 05:01:28 PM Interpretation: Performing Lab:[facility], [address] [place] [phone] Notes/Report: Bilirubin Total 0.5 0.0-1.0 mg/dL Bilirubin Direct 0.2 0.0-0.5 mg/dL Aspartate Amino Transferase 31 5-37 U/L Alanine Aminotransferase 42 0-40 U/L Total Protein 6.5 6.5-8.0 g/dL Albumin Level 3.9 3.5-5.0 g/dL Alkaline Phosphatase 107 39-117 U/L Complete Blood Count Auto Di ff (Not yet reviewed by provider) Interpretation:left message Performing Lab:[facility], [address] [place] [phone] Notes/Report: White Blood Count 8.0 4.8-10.8 X10*3/uL [...] te Reviewed date:07/29/2025 04:27:40 PM Interpretation: Performing Lab:[address] [address] Notes/Report: Erythrocyte Sedimentation Rate 15 1-20 MM/HR Patients with polycythemia and many hemoglobin abnormalities may have depressed sed rates whereas patients with anemia may have elevated sed rates. Comprehensive Met. Panel Reviewed date:07/29/2025 04:26:17 PM Interpretation: Performing Lab:[address] [address] Notes/Report: Sodium 138 135-145 mmol/L Potassium 4.1 [...] Protein Reviewed date:07/29/2025 04:27:57 PM Interpretation: Performing Lab:[facility], [address] [place] [phone] Notes/Report: C Reactive Protein 1.19 < or = 0.50 mg/dL Complete Blood Count Auto Di ff Reviewed date:07/30/2025 06:15:40 PM Interpretation: Performing Lab:[facility], [address] [place] [phone] Notes/Report: White Blood Count 6.9 4.8-10.8 X10*3/uL [...] INR Reviewed date:07/30/2025 06:14:59 PM Interpretation: Performing Lab:[address] [address] Notes/Report: Prothrombin Time 20.4 11.2-13.5 SEC INTERNATIONAL [...] Time Reviewed date:07/30/2025 06:14:46 PM Interpretation: Performing Lab:[facility], [address] [place] [phone] Notes/Report: Partial Thromboplastin Time 40.8 26.7-34.1 SEC Comprehensive Met. Panel Reviewed date:07/30/2025 06:14:23 PM Interpretation: Performing Lab:[address] [address] Notes/Report: Sodium 137 135-145 mmol/L Potassium 4.3 [...] Screen Reviewed date:07/31/2025 04:29:07 PM Interpretation: Performing Lab:[facility], [address] [place] [address] Notes/Report: Results at Issue Units as of 07/30/252055 ... Test View Group: Most Recent HGB HCT Results LABORATORY Date Time Test Result Flag Normal Range 07/30/251734 HGB 7.8 L 14.0-18.0 g/dl 07/30/25 1735 HCT 23.3 L 42.0-52.0 % Hgb 7-9 gm No Blood Type AP Antibody Screen NEGATIVE UA ClnCatch+Micro w/rflx Cul t Reviewed date:07/31/2025 04:28:14 PM Interpretation: Performing Lab:[facility], [address] [place] [phone] Notes/Report: [id number] Urine, Clean Catch Color Urine Yellow Appearance Urine Clear PH 5.5 5.0-9.0 Glucose Urine UA Negative Negative mg/dL Urine Blood Negative Negative Specific [place] - Urine 1.025 1.005-1.025 Urine Protein Negative Neg-Trace mg/dL Urine Ketones Negative Negative mg/dL Nitrite Urine Negative Negative Leukocyte Esterase Urine Negative Negative RBC Urine 0-2 0-2 /HPF WBC Urine 0-5 0-5 /HPF Squamous Epithelial Cell Urine 0-2 0-2 /HPF Bacteria Urine None Seen None Seen Hyaline Casts Urine 0-2 0-2 /LPF Red Blood Cells Reviewed date:07/31/2025 04:28:36 PM Interpretation: Performing Lab:[facility], [address] [place] [phone] Notes/Report: Red Blood Cells [id number] AP RC Red Blood Cells TRANSFUSED 07/30/252054 US Extremity Nonvas Limited RT Reviewed date:07/31/2025 04:27:54 PM Interpretation: Performing Lab: Notes/Report: [address] [address] Ultrasound Report Signed Patient: Joselito Hurd Sr MR#: [id number] : 1950 Acct:[id number] Age/Sex: 75 / M ADM Date: 07/30/25 Loc: HO.ED Attending Dr: Ordering Physician: Radha Bhatia Date of Service: 07/30/25 Procedure(s): US Extremity Nonvas Limited RT Accession Number(s): [id number] cc: Richard Castro MD; Radha Bhatia Reason for Exam: Soft tissue swelling R anterior shoulder, r/o abscess CLINICAL HISTORY: Soft tissue swelling R anterior shoulder, r o abscess --- Additional Notes or Special Instructions: visualization of fluid collection. US soft tissues of the right shoulder Comparison: US - US EXTREMITY NONVAS LIMITED RT - 07/30/25 20:[address]/SD/SR - CT SHOULDER RT WO IV CON [...] in OV> 07/30/252128 DD/ 26 TD/TT: 07/30/252126 Iron Piler: [place] [address] Ultrasound Report Signed Patient: Flavia Hurd Sr MR#: [id number] : 1950 Acct:[id number] Age/Sex: 75 / M ADM Date: 07/30/25 Loc: HO.ED Attending Dr: [facility] Date of Service: 07/30/25 Procedure(s): US Ext remity Nonvas Limited RT Accession Number(s): [id number] cc: Richard Castro MD; [facility] Reason for Exam: Sof t tissue swelling R anterior shoulder, r/o abscess CLINICAL HISTORY: So ft tissue swelling R anterior shoulder, r o abscess --- Additional Notes or Special Instructions : visualization of fluid collection. US soft tissues of t he right shoulder Comparison: US - US EXTREMITY NONVAS LIMITED RT - 07/30/25 20:[address]/SD/SR - CT SHOULD ER RT WO IV [...] Dictated By: Jeremy Mcleod MD Signed By: <Electron ically signed by Jeremy Mcleod MD in OV> 07/30/252128 DD/ 26 TD/TT: 07/30/252126 Iron Piler: Reason For Referral Reason HEMATURIA NEEDS A [...] Status W/U Status Risk Notes Problem Anemia (901024846) Anemia (D64.9) Active confir med Problem 249706380 Neuropathy (G62.9) Active confirmed Problem 78457378 Prostatism (N40.0) Active confirmed Problem 027058834 Paroxysmal atria l fibrillation (I48.0) Active confirmed Problem 799139727 Essential tremor (G25.0) Active confirmed Problem 356747613553705 Erectile dysfunc tion due to arterial insufficiency (N52.01) Active confirmed Problem 92710943 Mitral valve dis order (I05.9) Active confirmed Problem Pure hypercholesterolemia (342822964) Elevated LDL cholesterol level (E78.0) Active confirmed Problem 661795156 Non-rheumatic mi tral regurgitation (I34.0) Active confirmed Problem 634256412 Pure hypercholesterolemia (E78.00) Active confirmed Problem 665979719 Elevated PSA (R97.20) Active confirme d Problem 240169335 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 confirmed Problem 29990577 Hydronephrosis 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) Active confirmed Problem Melanoma of skin (75816352) Melanoma of skin (C43.9) Active confirmed Problem 054471425 Elevated serum cholesterol (E78.9) Active confirmed Problem Anemia (302768992) Acute anemia (D64.9) Active confirmed Problem 580241532 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 Vital Signs Blood pressure diastolic 60 mm Hg 07/30/2025 Height 70.50 in 07/30/2025 Blood pressure systolic 98 mm Hg 07/30/2025 Weight 200 lbs 07/30/2025 BMI 28.29 kg/m2 07/30/2025 Encounters Encounter Location Date Provider Diagnosis Richard Castro MD [address] [place] [id number] 07/05/2025 Richard Castro Elevated PSA R97.20 ; Encounter for administration of vaccine Z23 and Pure hypercholesterolemia E78.00 Richard Castro MD [address] [place] [id number] 07/30/2025 Richard Castro Acute anemia D64.9 ; Paroxysmal atrial fibrillation I48.0 ; 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 C85.88 and Hematuria R31.9 Richard Castro MD [address] [place] [id number] 08/02/2025 Richard Castro Anemia D64.9 Richard Castro MD [address] [place] [id number] 12/24/2024 Richard Castro Mass in neck R22.1 ; Right shoulder pain, unspecified chronicity M25.511 and Preop examination Z01.818 Richard Castro MD [address] [place] [id number] 07/18/2025 Richard Castro Hematuria R31.9 ; El evated PSA R97.20 ; Colon cancer screening Z12.11 ; Paroxysmal atrial fibrillation I48.0 ; Melanoma of skin C43.9 ; Pure hypercholesterolemia E78.00 and Depression screening Z13.31 Richard Castro MD [address] [place] [id number] 08/02/2025 Richard Castro MD [address] [id number] 01/15/2025 Richard Castro MD [address] [place] [id number] 02/28/2025 Richard Castro MD [address] [place] [id number] 08/01/2025 Richard Castro Assessments Encounter Date Diagnosis [...] - I48.0) is doing well at present 08/02/2025 Anemia (ICD-10 - D64.9) 12/24/2024 Mass in neck (ICD-10 - R22.1) THE ORDER WAS FAXED TO [facility], pending diagnsotic testing [...] his shoulder surgery if cleared by his maintenance of way clerk 07/18/2025 Colon cancer screeni ng (ICD-10 - [...] of skin (ICD-10 - C43.9) going to [place] derm to have idt removed some more 07/18/2025 Pure hypercholesterolemia (ICD-10 - E78.00) 07/18/2025 Depression screening (ICD-10 - Z13.31) Plan Of Treatment Pending Test Test Name Order Date US RENAL BILATERAL 07/24/2020 US RENAL BILATERAL 07/17/2020 Complete Blood Count Auto Diff 5 Complete Blood Count Auto Diff 5 US soft tiss head and/or neck 12/24/2024 Future Test Test Name Order Date US RENAL BILATERAL 07/29/2021 Next Appt Details Provider Name:Richard Chatman ier, 08/05/2025 08:15:00 AM, [address] [place] [address], [address], [place], [place], [phone], Provider Name:Richard Chatman ier, 08/26/2025 01:45:00 PM, [address], [address], [place], [place], [phone], Provider Name:Richard Chatman ier, 07/07/2026 07:15:00 AM, [address], [place], [phone], Provider Name:Richard Chatman ier, 07/18/2026 01:00:00 PM, [address] [facility], Laurent Fernández, CURTIS Nevarez, [phone], Insurance Providers Payer Name Payer Address Payer Phone Subscriber Number Group Number Insured Name Patient Relationship to Insured Coverage Start Date Coverage End Date MEDICARE NHIC [address] [place] [address] [id number] Joselito Hurd Self - patient is the insured MEDEX BC OF [facility] [id number] [place] [address] [id number] Joselito Hurd Self - patient is the [...]
--- OUTSIDE RECORDS SUMMARY | 2025-08-02 12:25 | XMS_ITS | Patient Health Record ---
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 Problems Problem Type SNOMED Code ICD Code Onset Dates Problem Status W/U Status Risk Notes Problem Hemorrhoids (50798904) Hemorrhoids (455.6) Active confirmed Problem Colon cancer screening (189202005) Colon cancer screening (V76.51) Active confirmed Problem Feces contents abnormal (324258051) Abnormal findings in stool (792.1) Active confirmed Plan Of Treatment Future Test Test Name Order Date COLONOSCOPY 07/26/2014 Insurance Providers Payer Name Payer Address Payer Phone Subscriber Number Group Number Insured Name Patient Relationship to Insured Coverage Start Date Coverage End Date [facility] [address] [address] [place] [address] [id number] ROOSEVELT SAMUELS Self - patient is the insured MEDICARE OF [place] [address] [place] [id number] [phone] [id number] ROOSEVELT SAMUELS Self - patient is the insured Medical (General) History Medical History History ICD Code lymphoma Atrial fibrillation mitral valve prolapse Surgical History Surgery Date(Month/Year) lymphectomy 1 node under arm 2010
== END 2025-08-02 10:40 | disposition home or self-care (01) ==
LOC: HO.LNP 10:39
PROVIDERS: Visit Provider Internal Medicine
DX: D64.9 Anemia, unspecified (principal)
CPT/HCPCS: 85025

== ENCOUNTER 2025-08-05 09:31 | Outpatient (AMB) | payer MEDICARE, SELFPAY ==
--- OUTSIDE RECORDS SUMMARY | 2025-01-15 04:25 | XMS_ITS ---
Author Organization Richard Castro MD Address [address] [place] [phone] Care Team Providers Care Associate Professor Of Violin Name Role Phone Richard Castro Primary Care Provider [phone] REASON FOR VISIT FYI US neck cancelled Encounters Encounter Location Date Provider Diagnosis Richard Castro MD [address] [facility] [address] [place] [phone] 01/15/2025 Richard Castro Plan Of Treatment Next Appt Details Provider Name:Richard escamilla, 08/26/2025 01:45:00 PM, [address] [place] [address], [address] [place] [address], [phone], Provider Name:Richard escamilla, 07/07/2026 07:15:00 AM, [address] [place] [address], Suite [facility], [place], [place], [phone], Provider Name:Richard Chatman ier, 07/18/2026 01:00:00 PM, [address], [address], [place], [phone], Progress Notes * Joselito HURD ADOB:[birth year] (74 yo M)Acc No.[id number]:01/15/2025 Patient: Joselito HANNA :1950 A ge:74 Y S ex:Male Address:[address] [place] [address] * true * Date: Generated for Per deleon/Amandeep/Kendricksmitting on: 10/06/2024 10:50 AM EST
--- OUTSIDE RECORDS SUMMARY | 2025-02-28 08:57 | XMS_ITS ---
Author Organization Richard Castro MD Address [address] [place] [address] [phone] Care Team Providers Care Asbestos Siding Mechanic Name Role Phone Richard Castro Primary Care Provider [phone] REASON FOR VISIT discharge Encounters Encounter Location Date Provider Diagnosis Richard Castro MD 10 [facility] [address] [place] [phone] 02/28/2025 Richard Castro Plan Of Treatment Next Appt Details Provider Name:Richard escamilla, 08/26/2025 01:45:00 PM, [address] [place] [address], [address], [phone], Provider Name:Richard escamilla, 07/07/2026 07:15:00 AM, [address] [place] [address], [address], [phone], Provider Name:Richard Chatman ier, 07/18/2026 01:00:00 PM, [address], [address], [place], [place], [phone], Progress Notes * Joselito HURD ADOB:[birth year] (75 yo M)Acc No.[id number]:02/28/2025 Patient: Joselito HANNA :1950 A ge:75 Y S ex:Male Address:[address] [place] [phone] * true * Date: Generated for Per deleon/Amandeep/Kendricksmitting on: 10/06/2024 10:49 AM EST
--- OUTSIDE RECORDS SUMMARY | 2025-07-05 02:30 | XMS_ITS ---
Author Organization Richard Castro MD Address [address] [place], [place] [phone] Care Team Providers Care Manager Medical Name Role Phone Richard Castro Primary Care Provider [phone] Results Component Value Reference Range Notes Complete Blood Count Auto Di ff Reviewed date:07/05/2025 12:57:53 PM Interpretation: Performing Lab:[facility], [address] [place] [phone] Notes/Report: White Blood Count 7.2 4.8-10.8 X10*3/uL [...] NRBC Abs Auto 0.000 0.0-0.012 X10*3/uL Comprehensive [place]. Panel Fa st Reviewed date:07/05/2025 04:22:31 PM Interpretation: Performing Lab:[facility], [address] [place] [phone] Notes/Report: Sodium 139 135-145 mmol/L Potassium 4.1 [...] Panel Reviewed date:07/05/2025 12:57:32 PM Interpretation: Performing Lab:[address] [phone] Notes/Report: Triglycerides 61 <150 mg/dL Desirable Triglyceride: [...] (Free>4and<10) Reviewed date:07/05/2025 12:56:55 PM Interpretation: Performing Lab:[address] [phone] Notes/Report: PSA,Total (Free>4and<10) 6.52 0.00-4.00 ng/mL PSA methodology: Burgess Alinity i Chemiluminescent Microparticle Immunoassay (CMIA) UA ClnCatch+Micro w/rflx Cul t Reviewed date:07/05/2025 04:23:00 PM Interpretation: Performing Lab:[address] [phone] Notes/Report: Urine, Clean Catch Color Urine Yellow Appearance Urine Clear PH 5.5 5.0-9.0 Glucose Urine UA Negative Negative mg/dL Urine Blood Small (1+) Negative Specific [place] - Urine 1.020 1.005-1.025 Urine Protein Negative [...] Date Provider Diagnosis Richard Castro MD [address] [place] [phone] 07/05/2025 Richard Castro Elevated PSA R97.20 ; [...] Details Provider Name:Richard escamilla, 08/26/2025 01:45:00 PM, [address] [place] [address], [address], [phone], Provider Name:Richard escamilla, 07/07/2026 07:15:00 AM, [address] [place] [address], [phone], Provider Name:Richard escamilla, 07/18/2026 01:00:00 PM, [address] [place] [address], [phone], Progress Notes * Joselito HURD ADOB:[birth year] (75 yo M)Acc No.[id number]:07/05/2025 Progress Note Patient: Joselito HANNA Provider: Del Castro MD :1950 A ge:75 Y S ex:Male Date:07/05/2025 Address:[address] [place], [place] [address] Subjective: * Chief Complaints: * 1 . [...] - 07/05/2025 07:30 AM) L AB: Comprehensive [place]. Panel Fast (Collection Date & Time - [...] * Procedure Codes: 3 6415 VENIPUNCT, ROUTINE*, [address]1301 FLU VACCINE NO PRESERV 3 & >, G0008 ADMN FLU VAC NO FEE SCHED SAME DAY * * The named appointment provid er may or may not be the originator of this progress note, and it is not deemed complete until electronically signed by the appointment provider. Sign off status: Pending * Provider: Del Castro MD Date: 09/04/2024 Generated for Per deleon/Amandeep/Kendricksmitting on: 10/06/2024 10:52 AM EST
--- OUTSIDE RECORDS SUMMARY | 2025-07-18 08:00 | XMS_ITS ---
Author Organization Richard Castro MD Address [address] [place], [place] [phone] Care Team Providers Care Metal Moulder Name Role Phone Richard Castro Primary Care Provider [phone] Allergies No Known Allergies Reason For [...] Status Risk Notes Problem Melanoma of skin (50367654) Melanoma of skin (C43.9) Active confirmed Vital Signs Blood pressure systolic 92 mm Hg 07/18/20 25 Blood pressure diastolic 58 mm Hg 025 Height 70.50 in 07/18/2025 Weight 201 lbs 07/18/2025 BMI 28.43 kg/m2 07/18/2025 Encounters Encounter Location Date Provider Diagnosis Richard Castro MD [address] [place], [place] [id number] 07/18/2025 Richard Castro Hematuria R31.9 ; El [...] 01:45:00 PM, [address], [address], [place], [place], [phone], Provider Name:Richard Chatman ier, 07/07/2026 07:15:00 AM, [address] [facility], [address], [place], [phone], Provider Name:Richard Chatman ier, 07/18/2026 01:00:00 PM, [address] [facility], [address], [place], [phone], Progress Notes * Joselito HURD ADOB:[birth year] (75 yo M)Acc No.[id number]:07/18/2025 Patient: Joselito HANNA Provider: Del Castro MD :1950 A ge:75 Y S ex:Male Date:07/18/2025 Address:[address] [place], [place] [phone] Subjective: * Chief Complaints: * C omp [...] Date: 09/18/2024 Generated for Per deleon/Amandeep/Malindaitting on: 10/06/2024 10:49 AM EST History and Physical Notes * [...]
--- OUTSIDE RECORDS SUMMARY | 2025-07-30 08:30 | XMS_ITS ---
Author Organization Richard Castro MD Address [address] [place], [place] [phone] Care Team Providers Care Roustabout Crew Leader Name Role Phone Richard Castro Primary Care Provider [phone] Results Component Value Reference Range Notes Complete Blood Count Auto Di ff Reviewed date:07/30/2025 06:18:40 PM Interpretation: Performing Lab:[facility], [address] [place] [phone] Notes/Report: White Blood Count 7.3 4.8-10.8 X10*3/uL [...] Location Date Provider Diagnosis Richard Castro MD [address] [place] [address] [address] [place], [place] [phone] 07/30/2025 Richard Castro Anemia D64.9 Assessments Encounter Date Diagnosis (ICD Code) Assessment Notes Treatment Notes Treatment Clinical Notes Section Notes 07/30/2025 Anemia (ICD-10 - D64.9) order faxed to [facility] Reg to be done STAT Patient notified. Plan Of Treatment Treatment Notes Assessment Notes Anemia order faxed to [facility] at Reg to be done STAT Patient notified. Next Appt Details Provider Name:Richard escamilla, 08/26/2025 01:45:00 PM, [address] [place] [address], [address], [place], [place], [phone], Provider Name:Richard escamilla, 07/07/2026 07:15:00 AM, [address] [place] [address], [address], [place], [place], [phone], Provider Name:Richard Chatman ier, 07/18/2026 01:00:00 PM, [address] [facility], [address], [place], [phone], Progress Notes * Joselito HURD ADOB:[birth year] (75 yo M)Acc No.[id number]:07/30/2025 Progress Note Patient: Joselito HANNA Provider: Del Castro MD :1950 A ge:75 Y S ex:Male Date:07/30/2025 Address:[address] [place], [place] [phone] Subjective: * Chief Complaints: * 1 . CBC. * Medical History: Objective: * Vitals: Assessment: * Assessment: 1. A nemia - D64.9 Plan: * Treatment: Notes: order faxed to [facility] pat Reg to be done STAT Patient notified.?? * * The named appointment provid er may or may not be the originator of this progress note, and it is not deemed complete until electronically signed by the appointment provider. Sign off status: Pending * Provider: Del Castro MD Date: 09/30/2024 Generated for Per deleon/Amandeep/eTransmitting on: 10/06/2024 10:51 AM EST
--- OUTSIDE RECORDS SUMMARY | 2025-07-30 10:15 | XMS_ITS ---
Author Organization Richard Castro MD Address [address] [place] [phone] Care Team Providers Care Product Marketing Executive Name Role Phone Richard Castro Primary [...] Status W/U Status Risk Notes Problem Anemia (581751383) Acute anemia (D64.9) Active confirmed Vital Signs Blood pressure systolic 98 mm Hg 07/30/20 25 Blood pressure diastolic 60 mm Hg 025 Height 70.50 in 07/30/2025 Weight 200 lbs 07/30/2025 BMI 28.29 kg/m2 07/30/2025 Encounters Encounter Location Date Provider Diagnosis Richard Castro MD [address] [place], [place] [phone] 07/30/2025 Richard Castro Acute anemia D64.9 ; [...] Provider Name:Richard Chatman ier, 08/26/2025 01:45:00 PM, [address] [place] [address], Suite [facility], [place], [place], [phone], Provider Name:Richard Chatman ier, 07/07/2026 07:15:00 AM, [address] [place] [address], Suite [facility], [place], [place], [phone], Provider Name:Richard Chatman ier, 07/18/2026 01:00:00 PM, [address], [address], [place], [place], [phone], Progress Notes * ARVINDJoselito ADOB:[birth year] (75 yo M)Acc No.[id number]:07/30/2025 Patient: Joselito HANNA Provider: Del Castro MD :1950 A ge:75 Y S ex:Male Date:07/30/2025 Address:[address] [place], [place] [phone] Subjective: * Chief Complaints: * 1 . [...] Date: 09/30/2024 Generated for Per deleon/Amandeep/Malindaitting on: 10/06/2024 10:49 [...]
--- OUTSIDE RECORDS SUMMARY | 2025-08-01 05:03 | XMS_ITS ---
Author Organization Richard Castro MD Address [address] [place] [phone] Care Team Providers Care Senior Administrative Services Officer Name Role Phone Richard Castro Primary Care Provider [phone] REASON FOR VISIT ER visit rec'd Encounters Encounter Location Date Provider Diagnosis Richard Castro MD 10 [facility] [address] [place] [phone] 08/01/2025 Richard Castro Plan Of Treatment Next Appt Details Provider Name:Richard escamilla, 08/26/2025 01:45:00 PM, [address] [place] [address], [address] [place] [address], [phone], Provider Name:Richard escamilla, 07/07/2026 07:15:00 AM, [address] [place] [address], [address] [place] [address], [phone], Provider Name:Richard Chatman ier, 07/18/2026 01:00:00 PM, [address], [address], [place], [phone], Progress Notes * Joselito HURD ADOB:[birth year] (75 yo M)Acc No.[id number]:08/01/2025 Patient: Joselito HANNA :1950 A ge:75 Y S ex:Male Address:[address] [place] [address] * true * Date: Generated for Per deleon/Amandeep/Kendricksmitting on: 10/06/2024 10:51 AM EST
--- OUTSIDE RECORDS SUMMARY | 2025-08-02 02:30 | XMS_ITS ---
Author Organization Richard Castro MD Address [address] [place], [place] [phone] Care Team Providers Care Microbiology Laboratory Manager Name Role Phone Richard Castro Primary Care Provider Results Component Value Reference Range Notes Complete Blood Count Auto Di ff Reviewed date:08/02/2025 12:41:27 PM Interpretation: Performing Lab:[facility], [address] [place] [phone] Notes/Report: White Blood Count 6.8 4.8-10.8 X10*3/uL Red Blood Count 2.81 4.60-5.80 X10*6/uL Hemoglobin 8.4 14.0-18.0 g/dl Hematocrit 25.1 42.0-52.0 % Mean Corpuscular Volume 89.3 80.0-98.0 fL Mean Corpuscular Hemoglobin 29.9 27.0-33.0 pg Mean Corpuscular HGB Conc 33.5 31.0-36.0 g/dl Red Cell Distribution Width 15.9 11.0-16.0 % Platelet Count 232 160-400 X10*3/uL Mean Platelet Volume 9.3 9.4-12.4 fL Neutrophils Percent Auto 60.1 45-73 % Imm Gran Pct Auto 0.3 0.0-0.4 % Lymphocytes Percent Auto 27.4 20-40 % Monocytes Percent Auto 10.2 2-11 % Eosinophils Percent Auto 1.6 0-4 % Basophils Percent Auto 0.4 0-2 % NRBC Pct Auto 0.3 0.0-0.2 /100WBC Neutrophils Absolute Auto 4.1 2.0-8.3 x10*3/u L Imm Gran Abs Auto 0.02 0.00-0.03 X10*3/uL Lymphocytes Absolute Auto 1.9 1.2-4.9 X10*3/u L Monocytes Absolute Auto 0.7 0.1-1.2 X10*3/uL Eosinophils Absolute Auto 0.1 0.0-0.4 X10*3/u L Basophils Absolute Auto 0.0 0.0-0.2 X10*3/uL NRBC Abs Auto 0.020 0.0-0.012 X10*3/uL REASON FOR VISIT CBC Encounters Encounter Location Date Provider Diagnosis Richard Castro MD [address] [place] [address] [place] [phone] 08/02/2025 Richard Castro Anemia D64.9 Assessments Encounter Date Diagnosis (ICD Code) Assessment Notes Treatment Notes Treatment Clinical Notes Section Notes 08/02/2025 Anemia (ICD-10 - D64.9) Plan Of Treatment Next Appt Details Provider Name:Richard escamilla, 08/26/2025 01:45:00 PM, [address] [place] [address], [address], [phone], Provider Name:Richard escamilla, 07/07/2026 07:15:00 AM, [address] [place] [address], [address] [place] [address], [phone], Provider Name:Richard escamilla, 07/18/2026 01:00:00 PM, [address] [facility], [address], [place], [place], [phone], Progress Notes * Joselito HURD ADOB:[birth year] (75 yo M)Acc No.[id number]:08/02/2025 Progress Note Patient: Joselito HANNA Provider: Del Castro MD :1950 A ge:75 Y S ex:Male Date:08/02/2025 Address:[address] [place], [place] [phone] Subjective: * Chief Complaints: * 1 . CBC. * Medical History: Objective: * Vitals: Assessment: * Assessment: 1. A nemia - D64.9 (Primary) Plan: * Treatment: * Procedure Codes: 3 6415 VENIPUNCT, ROUTINE* * * The named appointment provid er may or may not be the originator of this progress note, and it is not deemed complete until electronically signed by the appointment provider. Sign off status: Pending * Provider: Del Castro MD Date: 10/03/2024 Generated for Per deleon/Amandeep/Malindaitting on: 10/06/2024 10:51 AM EST
--- OUTSIDE RECORDS SUMMARY | 2025-08-02 04:43 | XMS_ITS ---
Author Organization Richard Castro MD Address [address] [place] [phone] Care Team Providers Care Adhesive Primer Name Role Phone Richard Castro Primary Care Provider REASON FOR VISIT ER summary rec'd Encounters Encounter Location Date Provider Diagnosis Richard Castro MD 10 [facility] [address] [place] [phone] 08/02/2025 Richard Castro Plan Of Treatment Next Appt Details Provider Name:Richard escamilla, 08/26/2025 01:45:00 PM, [address] [place] [address], [address] [place] [address], [phone], Provider Name:Richard escamilla, 07/07/2026 07:15:00 AM, [address] [place] [address], [address] [place] [address], [phone], Provider Name:Richard Chatman ier, 07/18/2026 01:00:00 PM, [address], [address], [place], [phone], Progress Notes * Joselito HURD ADOB:[birth year] (75 yo M)Acc No.[id number]:08/02/2025 Patient: Joselito HANNA :1950 A ge:75 Y S ex:Male Address:[address] [place] [address] * * Date:
--- OUTSIDE RECORDS SUMMARY | 2025-08-05 03:15 | XMS_ITS ---
Author Organization Richard Castro MD Address [address] [place] [phone] Care Team Providers Care Auto Overhauler Name Role Phone Richard Castro Primary Care Provider REASON FOR VISIT CBC Encounters Encounter Location Date Provider Diagnosis Richard Castro MD [address] [place] [phone] 08/05/2025 Richard Castro Anemia D64.9 Assessments Encounter Date Diagnosis (ICD Code) Assessment Notes Treatment Notes Treatment Clinical Notes Section Notes 08/05/2025 Anemia (ICD-10 - D64.9) Plan Of Treatment Pending Test Test Name Order Date Complete Blood Count Auto Diff Next Appt Details Provider Name:Richard escamilla, 08/26/2025 01:45:00 PM, [address], [address] [place] [address], [phone], Provider Name:Richard Chatman ier, 07/07/2026 07:15:00 AM, [address], [address], [place], [phone], Provider Name:Richard Chatman ier, 07/18/2026 01:00:00 PM, [address], [address], [place], [phone], Progress Notes * Joselito HURD ADOB:[birth year] (75 yo M)Acc No.[id number]:08/05/2025 Progress Note Patient: Joselito HANNA Provider: Del Castro MD :1950 A ge:75 Y S ex:Male Date:08/05/2025 Address:[address] [place] [address] Subjective: * Chief Complaints: * 1 . [...] Pending * Provider: Del Castro MD Date: 10/06/2024 Generated for Per deleon/Amandeep/Kendricksmitting on: 10/06/2024 10:51 AM EST
--- NOTE | 2025-08-05 09:33 | MHC.OFFVIS ---
Intake Visit Reasons: PO - Right rTSA I&D 06/19/25 Intake Note: Joselito is a 75 year old Left Hand dominant male who presents today for a post operative wound check about 3 weeks s/p Right Shoulder I&D 06/19/25 & about 5 Months s/p Right Reverse TSA 02/26/25. Patient reports that the lump on the anterior aspect of the shoulder at incision site has grown since he was last seen Allergies No Known Allergies (No Known Allergies*) Allergy (Verified 07/30/25 17:10) HPI HPI PO - Right rTSA I&D 06/19/25: Details: Joselito is a 75 year old Left Hand dominant male who presents today for a post operative wound check about 3 weeks s/p Right Shoulder I&D 06/19/25 & about 5 Months s/p Right Reverse TSA 02/26/25. Patient reports that the lump on the anterior aspect of the shoulder at incision site has grown since he was last seen HPI Comments Details: Interval History The patient is a 75-year-old male presenting with follow-up for right reverse total shoulder arthroplasty (rTSA) incision and drainage (I&D). He reports soreness inside the arm but denies significant pain. The patient describes the sensation as a slow-growing discomfort rather than acute pain. There have been no changes in medication or new allergies reported since the last visit. Results [facility] Medical History Wears hearing aid in both ears TIMBI-SHA SHOSHONE (hard of hearing) History of cardioversion BPH (benign prostatic hyperplasia) Hx MRSA infection (07/2018) Tremor Non-Hodgkin lymphoma Afib Hydronephrosis with renal and ureteral calculous obstruction (2019) Acute UTI Sepsis Calculus, renal Hydronephrosis Surgical History S/P right rotator cuff repair Hx of colonoscopy Hx of repair of right rotator cuff (~2014) History of left inguinal hernia repair (~2020) History of right inguinal hernia repair (08/28/18) History of bilateral inguinal hernia repair (06/28/17) History of arthroscopy of left knee Family History Father Throat cancer Mother Melanoma Leukemia Social History Household Members: Spouse and Children Housing: House Are you a primary residential care facility manager to a significant other at home: No Do you presently have visiting nurse or other home services: No Comment: hematoma right thigh, resolved no fracture with 12/2024 fall, no head strike Patient Tobacco Use Status: Former Tobacco user Tobacco use type: Cigarette service: Yes Current occupational status: retired Physical Exam Exam Exam: Physical Exam No acute distress. There is a growing prominence with mild erythema and fluctuance of the distal half of his incision. 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 The abscess appears to be growing. I have seen him regularly for the last 2 weeks and it definitely is starting to look like underlying fluid collection is increasing in size. Plan Plan 1. Right Shoulder Pain With Possible Fluid Collection The plan is to perform an incision and drainage (I&D) of the right shoulder under local anesthesia to address the fluid collection. This procedure will be done in a controlled setting without the need for general anesthesia, minimizing risks associated with sedation. The patient will be scheduled for the procedure tomorrow, with arrangements to be confirmed shortly. Post-procedure, the patient is advised to rest and will not require follow-up for at least a week or two unless complications arise. Discussion Notes The patient and I discussed the presence of soreness in the right arm, which is not significantly painful but has been slowly increasing. I explained the nature of the fluid collection and the plan to perform an incision and drainage (I&D) under local anesthesia, emphasizing that this approach avoids the risks associated with general anesthesia. The patient expressed understanding and agreement with the plan, preferring the procedure to be done without general anesthesia. I assured the patient that the procedure would be scheduled for the following day, and arrangements would be confirmed soon. 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
--- OUTSIDE RECORDS SUMMARY | 2025-08-05 10:50 | XMS_ITS | Encounter Summary ---
Author Organization [facility] Address [address] [place] [address] Phone Care Team Providers Care Hydrotherapist Name Role Phone Richard Castro MD Primary Care Provider Encounter Details Date Type Department Care Team (Latest Contact Info) Description 06/04/2017 Ancillary Orders [facility] [address] [place] [address] 3rd Floor, [address] [place] [address] Av Orozco MD [address] [place] [address] Diagnosis unknown Social History Tobacco Use Types [...] Description 09/13/2025 10:00 AM EST Office Visit [facility] [address]rd Floor, [address] [place] [address] Roxy Burnette DNP [address] [place] [address], [address] [address] documented as of this encounter Visit Diagnoses Diagnosis Diagnosis unknown documented in this encounter Care Teams Hydrotherapist Relationship Specialty Start Date End Date Richard Castro MD [address] [place] [address] Dr Chaudhary, [place] [address] PCP - General 06/02/17 documented as of this encounter Additional Source Comments The information contained in this document represents components of the legal health record. It is not the complete legal health record.[facility]
--- OUTSIDE RECORDS SUMMARY | 2025-08-05 10:50 | XMS_ITS | Encounter Summary ---
Author Organization [facility] Address [address] [place] [address] Care Team Providers Care Breaker Hand Name Role Phone Richard Castro MD Primary Care Provider Encounter Details Date Type Department Care Team (Late st Contact Info) Description 07/25/2025 Lab Requisition [facility] [address] [facility] [place] [address] Nikolay Marcano, TAY [address] [place] [address] Gross hematuria Social History Tobacco Use Types [...] AM EST) Final Diagnosis A. Urine, Voided, [id number]: Negative for high grade urothelial carcinoma. Results of UroVysion fluorescence in situ hybridization (FISH) testing: CEP3: Normal CEP7: Normal CEP17: Normal LSI 9p21: Normal Interpretation: Normal profile Controls stained appropriately. Note: The results are intended as a screening device and should be interpreted in association with other clinical and pathological findings. 08/01/2025 12:55 PM EST [facility] at 1255 EST Specimen A Adequacy Satisfactory for evaluation 08/01/2025 12:55 PM EST [facility] Clinical Information Gross hematuria R31.0 Urine Cytology/FISH (now) 08/01/2025 12:55 PM EST [facility] Gross Description A. Urine, Voided, [id number]: Received one ThinPrep slide for cytology and one ThinPrep slide for UroVysion FISH 08/01/2025 12:55 PM [facility] Disclaimer Unless otherwise specified, all tissue is 10% NB formalin fixed and paraffin embedded. Technical pathology services provided by [facility] [address] [facility] [address] [place] [address] (CLIA #[id number]/Shwetha Tran MD, Retail Coordinator) 08/01/2025 12:55 PM EST [facility] Urine Urine specimen from urethra / Unknown 07/19/2025 07/25/2025 1:35 PM EST [facility] CYTOLOGY ORDERABLES Final R esult [facility] [address] [place] [address], documented in this encounter Visit Diagnoses Diagnosis Gross hematuria documented in this encounter Care Teams Breaker Hand Relationship Specialty Start Date End Date Richard Castro MD [address] [place] [address] Drive [address] [place] [address] PCP - General Internal Medicine 07/19/25 documented as of this encounter
--- OUTSIDE RECORDS SUMMARY | 2025-08-05 10:50 | XMS_ITS | Encounter Summary ---
Author Organization [facility] Address [address] [place] [address] Phone Care Team Providers Care Windows Security Analyst Name Role Phone Richard Castro MD Primary Care Provider Encounter Details Date Type Department Care Team (Latest Contact Info) Description 11/15/2017 Ancillary Orders [facility] [address] [place] [address] 3rd Floor, [address] [place] [address] [phone] Av Orozco MD [address] [place] [address] Paroxysmal atrial fibrillation Social History Tobacco Use [...] Description 09/13/2025 10:00 AM EST Office Visit [facility] [address] Floor, [address] [place] [address] [phone] Roxy Burnette DNP [address] [place] [address], [address] [phone] documented as of this encounter Results * TTE COMPREHENSIVE (11/17/2017 10:06 AM EDT) Anatomical Region Laterality Modality Heart Ultrasound us Av Orozco MD CV ECHO ORDERABLES Final Result documented in this encounter Visit Diagnoses Diagnosis Paroxysmal atrial fibrillation Atrial fibrillation documented in this encounter Care Teams Windows Security Analyst Relationship Specialty Start Date End Date Richard Castro MD [address] [place] [address] [place] [address] PCP - General 06/02/17 documented as of this encounter Additional Source Comments The information contained in this document represents components of the legal health record. It is not the complete legal health record.[facility]
--- OUTSIDE RECORDS SUMMARY | 2025-08-05 10:50 | XMS_ITS | Clinical Summary ---
Author Organization [address] [facility] Address [address] [place] [address] Phone Care Team Providers Care Highway Design Engineer Name Role Phone Richard Castro MD Primary Care Provider Encounters Date Type Department Care Team Description 07/25/2025 Lab Requisition [facility] [address] [place] [address] Nikolay Marcano PA Gross hematuria 07/19/2025 Lab Requisition [facility] [address] [place] [address] Nikolay Marcano PA Gross hematuria [...] Culture urine (07/19/2025 1:15 PM EST) Pathologist [facility] Culture, Urine No growth 07/20/2025 1:59 PM EST [facility] Urine Urine specimen obtained by clean catch procedure / Unknown 07/19/2025 1:15 PM EST 07/19/2025 6:23 PM EST [facility] MICROBIOLOGY - GENERAL ORDE RABLES Final Result [facility] [address] [place] [address], * Non-gynecologic cytology (07/19/2025 12:00 AM EST) Final Diagnosis A. Urine, Voided, [id number]: Negative for high grade urothelial carcinoma. Results of UroVysion fluorescence in situ hybridization (FISH) testing: CEP3: Normal CEP7: Normal CEP17: Normal LSI 9p21: Normal Interpretation: Normal profile Controls stained appropriately. Note: The results are intended as a screening device and should be interpreted in association with other clinical and pathological findings. 08/01/2025 12:55 PM [facility] at 1255 EST Specimen A Adequacy Satisfactory for evaluation 08/01/2025 12:55 PM [facility] Clinical Information Gross hematuria R31.0 Urine Cytology/FISH (now) 08/01/2025 12:55 PM [facility] Gross Description A. Urine, Voided, [id number]: Received one ThinPrep slide for cytology and one ThinPrep slide for UroVysion FISH 08/01/2025 12:55 PM [facility] Disclaimer Unless otherwise specified, all tissue is 10% NB formalin fixed and paraffin embedded. Technical pathology services provided by [facility] at [address], [place] [address] (CLIA #[id number]/Shwetha Tran MD, Management Sme) 08/01/2025 12:55 PM [facility] Urine Urine specimen from urethra / Unknown 07/19/2025 07/25/2025 1:35 PM EST [facility] LAB CYTOLOGY ORDERABLES Final R esult [facility] [address] [place] [address], from Last 3 Months Insurance MEDICARE [facility] Care Teams Highway Design Engineer Relationship Specialty Start Date End Date Richard Castro MD [address] [facility] [address] [place] [address] PCP - General Internal Medicine 07/19/25
--- OUTSIDE RECORDS SUMMARY | 2025-08-05 10:50 | XMS_ITS | Clinical Summary ---
Author Organization [facility] Address [address] [address] Phone Care Team Providers Care Motorcycle Assembler Name Role Phone Richard Castro MD [...] and now has another point to his [id number] score now making him by 2 which [...] Type Department Care Team Description 06/18/2025 Telephone [facility] [address] [place] [address] Jeniffer Joseph DNP 05/17/2025 1:20 PM EDT Office Visit [facility] [address], [address] [place] [address] Dianelys Fonseca MD Paroxysmal atrial fibrillation (Primary Dx); Current use of mcfp anticoagulation 05/13/2025 4:00 PM EDT Office Visit [facility] [place] [address] [address], [address] [place] [address] Kyle Montanez MD Other chest pain (Primary [...] Description 09/13/2025 10:00 AM EST Office Visit [facility] [address] [place] [address] 3rd [facility], [address] [place] [address] Roxy Burnette DNP [address] [place] [address], [address] [address] Health Maintenance Due Date Last Done Comments [...] this topic Medical Devices Implanted Type Area Stem Cleaning Machine Feeder Device Identifier Shelf Expiration Date Model / Serial / Lot Mesh Mesh Pin Pin Right: Arm Procedures Procedure Name Priority Date/Time Associated Diagnosis Comments BASIC METABOLIC PANEL (BMP) Routine 09/10/2022 11:13 AM EST Persistent atrial fibrillation from Last 3 Months or Most Recently Relevant to Health Maintenance Results * (ABNORMAL) Basic metabolic panel (09/10/2022 11:13 AM EST) SODIUM 138 133 - 146 mmol/L [facility] CHLORIDE 102 96 - 108 mmol/L [facility] POTASSIUM 4.8 3.3 - 5.1 mmol/L [facility] CO2 27 21 - 35 mmol/L [facility] BUN 21(H) 6 - 19 mg/dL [facility] CREATININE 1.10 0.5 - 1.5 mg/dL [facility] GLUCOSE 93 70 - 99 mg/dL [facility] CALCIUM 9.2 8.4 - 10.3 mg/dL [facility] EGFR 71 >59 mL/min/1.7 3m2 [facility] Comment:Estimated glomerular filtration rate calculated using the CKD-EPI refit equation. ANION GAP 14 10 - 20 mmol/L [facility] Blood 09/10/2022 11:1 3 AM EST 09/10/2022 4:07 PM EST us Edenilson Stapleton MD LAB BLOOD BKR ORDERABLES Fin al Result [facility] [address] [place], [place] [id number] from Last 3 Months or Most Recently Relevant to Health Maintenance Insurance [employer] MEDEX SUPPLEMENT MEDICARE PART A & B Member Subscriber Plan / Payer (Ef fective 2014-Present) Name:Roosevelt Hurd Member ID:[id number] Relation to Subscriber:Self Name:Roosevelt Hurd Subscriber ID:[id number] Payer ID:[id number] Group ID:Not on file Type:Medicare Address: [employer] [facility] [address] [address] [employer] MEDEX SUPPLEMENT MEDICARE PART A & B [employer] MEDEX SUPPLEMENT MEDICARE PART A & B MEDICARE PART A & B [employer] MEDEX SUPPLEMENT MEDICARE PART A & B [employer] MEDEX SUPPLEMENT MEDICARE PART A & B [employer] CROSS MEDEX SUPPLEMENT MEDICARE PART A & B [employer] CROSS MEDEX SUPPLEMENT MEDICARE PART A & B [employer] CROSS MEDEX SUPPLEMENT MEDICARE PART A & B Member Subscriber Plan / Payer ( fective 2014-Present) Name:Roosevelt Hurd Member ID:[id number] Relation to Subscriber:Self Name:Roosevelt Hurd Subscriber ID:[id number] Payer ID:[id number] Group ID:Not on file Type:Medicare Address: [facility] [employer] [facility] [address] [facility] [place] [address] Care Teams Motorcycle Assembler Relationship Specialty Start Date End Date Richard Castro MD [address] [place] [address] [place] [address] PCP - General 06/02/17 Additional Source Comments The information contained in this document represents components of the legal health record. It is not the complete legal health record.[facility]
--- OUTSIDE RECORDS SUMMARY | 2025-08-05 10:50 | XMS_ITS | Encounter Summary ---
Author Organization [facility] Address [address] [place] [address] Care Team Providers Care Cooker Loader Name Role Phone Richard Castro MD Primary Care Provider Encounter Details Date Type Department Care Team (Late st Contact Info) Description 07/19/[address] [facility] [address] [place] [address] Nikolay Marcano, TAY [address] [place] [address] Gross hematuria Social History Tobacco Use Types [...] Result [facility] [address] [place] [address], documented in this encounter Visit Diagnoses Diagnosis Gross hematuria documented in this encounter Care Teams Cooker Loader Relationship Specialty Start Date End Date Richard Castro MD [address] [place] [address] [place] [address] PCP - General Internal Medicine 07/19/25 documented as of this encounter
--- OUTSIDE RECORDS SUMMARY | 2025-08-05 10:52 | XMS_ITS | Patient Health Record ---
Author Organization Richard Castro MD Address [address] [place], [place] [address] Care Team Providers Care Quality Assurance Assistant Name Role Phone Richard Castro Primary Care Provider [phone] Allergies No Known Allergies Results Component Value Reference Range Notes Complete Blood Count Auto Di ff Reviewed date:07/05/2025 12:57:53 PM Interpretation: Performing Lab:[facility], [address] [place] [phone] Notes/Report: White Blood Count 7.2 4.8-10.8 X10*3/uL [...] NRBC Abs Auto 0.000 0.0-0.012 X10*3/uL Comprehensive Leland. Panel Fa st Reviewed date:07/05/2025 04:22:31 PM Interpretation: Performing Lab:[facility], [address] [place] [phone] Notes/Report: Sodium 139 135-145 mmol/L Potassium 4.1 [...] Panel Reviewed date:07/05/2025 12:57:32 PM Interpretation: Performing Lab:[address] [address] Notes/Report: Triglycerides 61 <150 mg/dL Desirable Triglyceride: [...] (Free>4and<10) Reviewed date:07/05/2025 12:56:55 PM Interpretation: Performing Lab:[address] [address] Notes/Report: PSA,Total (Free>4and<10) 6.52 0.00-4.00 ng/mL PSA methodology: Burgess Alinity i Chemiluminescent Microparticle Immunoassay (CMIA) UA ClnCatch+Micro w/rflx Cul t Reviewed date:07/05/2025 04:23:00 PM Interpretation: Performing Lab:[address] [address] Notes/Report: Urine, Clean Catch Color Urine Yellow Appearance Urine Clear PH 5.5 5.0-9.0 Glucose Urine UA Negative Negative mg/dL Urine Blood Small (1+) Negative Specific [place] - Urine 1.020 1.005-1.025 Urine Protein Negative [...] ff Reviewed date:08/02/2025 12:41:27 PM Interpretation: Performing Lab:[facility], [address] [place] [phone] Notes/Report: White Blood Count 6.8 4.8-10.8 X10*3/uL [...] ff Reviewed date:12/24/2024 05:16:55 PM Interpretation: Performing Lab:[facility], [address] [place] [phone] Notes/Report: White Blood Count 8.2 4.8-10.8 X10*3/uL [...] Panel Reviewed date:12/24/2024 05:16:08 PM Interpretation: Performing Lab:[facility], [address] [place] [phone] Notes/Report: Sodium 137 135-145 mmol/L Potassium 4.2 [...] date:12/19/2024 05:35:49 PM Interpretation: Performing Lab: Notes/Report: [place] [address] [address] Scan Report Signed Patient: Joselito Hurd MR#: [id number] : 1950 Acct:[id number] Age/Sex: 74 / M ADM Date: 12/17/24 Loc: HO.CT Attending Dr: Js Marquez PA-C Ordering Physician: Js Marquez PA-C Date of Service: 12/17/24 Procedure(s): CT shoulder RT wo IV con Accession Number(s): [id number] cc: Richard Castro MD; Js Marquez PA-C Report Number: [id number]: Total DLP = 283.00 mGy-cm CLINICAL HISTORY: [...] in OV> 12/19/24913 DD/ 2 TD/TT: 12/19/24912 [employer]: [place] [address] [address] Scan Report Signed Patient: Flavia Hurd MR#: [id number] : 1950 Acct:[id number] Age/Sex: 74 / M ADM Date: 12/17/24 Loc: HO.CT Attending Dr: Justino Marquez PA-C Ordering Physician: Js Marquez PA-C Date of Service: 12/17/24 Procedure(s): CT staci obrien RT wo IV con Accession Number(s): [id number] cc: Richard Castro MD; Js Marquez PA-C Report Number: [id number]: Total DLP = 283.00 mGy-cm CLINICAL HISTORY: M1 2.819 - Other specific arthropathies, not elsewhere classified, unspec... --- Additional Notes or Special Instructions: PRe op planning Exam: [facility] shoulder without intravenous contrast. Comparison: MRI [...] in OV> 12/19/24913 DD/ 2 TD/TT: 12/19/24912 [employer]: MRSA Nasal Screen Reviewed date:01/29/2025 05:00:18 PM Interpretation: Performing Lab:[facility], [address] [place] [phone] Notes/Report: MRSA Nasal PCR NEGATIVE Negative SA Nasal PCR NEGATIVE Negative MRSA Interpretation SEE NOTE MRSA target DNA not detected; SA target DNA not detected. A MRSA NEGATIVE, SA NEGATIVE test result does not preclude MRSA or SA nasal colonization. Complete Blood Count Auto Di ff Reviewed date:02/21/2025 05:04:30 PM Interpretation: Performing Lab:[facility], [address] [place] [phone] Notes/Report: White Blood Count 5.4 4.8-10.8 X10*3/uL [...] Panel Reviewed date:02/21/2025 04:13:13 PM Interpretation: Performing Lab:[facility], [address] [place] [phone] Notes/Report: Sodium 138 135-145 mmol/L Potassium 4.5 [...] Screen Reviewed date:02/21/2025 04:00:33 PM Interpretation: Performing Lab:[facility], [address] [place] [phone] Notes/Report: Spec expiration changed by ARPITA on 02/21/25 Reason: PAT NURSING: Call Blood Bank (ext. [phone]) to band patient on admission. Type and Screen in effect until 2300 on 02/26/25 Witnessed by PORTERS Blood Type AP Antibody Screen NEGATIVE Hemoglobin and Hematocrit Reviewed date:02/26/2025 12:28:58 PM Interpretation: Performing Lab:[facility], [address] [place] [phone] Notes/Report: Hemoglobin 13.7 14.0-18.0 g/dl Hematocrit 40.8 42.0-52.0 % Pathology Reviewed date:02/28/2025 05:07:11 PM Interpretation: Performing Lab:[facility], [address] [place] [phone] Notes/Report: ------ Name: Joselito Hurd Sr Age/Sex: 75/M : 1950 Unit#: [id number] Attend Dr: Clint Thomas MD Re02/26/25 Status : [facility] Location: [facility] Disch: ------ SPEC : [id number] RECD : 02/27/250749 STATUS: EARNEST WALLER NUM: [id number] KRISTINA: 02/26/25-4509 [facility] DR: Clint Thomas MD ENTERED: 02/27/25- 53 [...] yet, brittle, tapia-yellow with yellow-pink bone marrow. Stull Hewer secti ons are submitted in a cassette labeled A1 following decalcification. CEDS IHC S/NG Disclaimer NOTE: Unless otherwi se stated, all tissue is formalin-fixed and paraffin-embedded. Some or all of the immunohistochemical tests reported herein may have been developed and their performance characteristics determined by [facility]. They have not been cleared or appr saima by the U.S. Food and Drug Administration (FDA). However, the FDA has determined that such clearance or approval is not necessary. This laboratory is certified under the Clinical Laboratory Improvement Amendments of 1988 (CLIA) as qualified to perform high comp lexity clinical laboratory testing. Copies To: Richard Castro MD [facility] [address] [place] [address] CONTINUED ON NEXT PAGE ------ Name: Joselito Hurd Sr Age/Sex: 75/M : 1950 Unit#: [id number] Attend Dr: Clint Thomas MD Re02/26/25 Status : [facility] Location: [facility] Disch: ------ SPEC : [id number] RECD : 02/27/25 STATUS: EARNEST WALLER NUM: [id number] KRISTINA: 02/26/25 [facility] DR: Clint Thomas MD ENTERED: 02/27/25- 53 SP TYPE: Surgical OTHR DR: Richard Castro MD ORDERED: Gross Micro L3, Decal Copies To: (Continued) Clint Thomas MD [facility] [address] [place] [address] Dr [address] [place] [address] ------ Signed (signature on file) Leon Keene MD 02/28/25 1146 ------ END OF REPORT XR shoulder RT 1V Reviewed date:02/26/2025 05:10:31 PM Interpretation: Performing Lab: Notes/Report: [address] [address] XRay Report Signed Patient: Joselito Hurd Sr MR#: [id number] : 1950 Acct:[id number] Age/Sex: 75 / M ADM Date: 02/26/25 Loc: HO.S3 345-[address]: Clint Thomas MD Ordering Physician: Js Marquez PA-C Date of Service: 02/26/25 Procedure(s): XR shoulder RT 1V Accession Number(s): [id number] cc: Richard Castro MD; Js Marquez PA-C [...] 02/26/25 1702 DD/ 1539 TD/TT: 02/26/25 1642 [employer]: [address] [address] XRay Report Signed Patient: Flavia Hurd Sr MR#: [id number] : 1950 Acct:[id number] Age/Sex: 75 / M ADM Date: 02/26/25 Loc: HO.S3 345-[address]: Clint ellison MD Ordering Physician: Js Marquez PA-C Date of Service: 02/26/25 Procedure(s): XR staci ulder RT 1V Accession Number(s): [id number] cc: Richard Castro MD; Js Marquez PA-C [...] 02/26/25 1702 DD/ 1539 TD/TT: 02/26/25 1642 [employer]: Complete Blood Count Auto Di ff Reviewed date:02/27/2025 04:10:37 PM Interpretation: Performing Lab:[facility], [address] [place] [phone] Notes/Report: White Blood Count 11.9 4.8-10.8 X10*3/uL [...] g Reviewed date:02/27/2025 04:01:26 PM Interpretation: Performing Lab:[address] [address] Notes/Report: Sodium 136 135-145 mmol/L Potassium 4.2 [...] stain Reviewed date:06/20/2025 05:05:21 PM Interpretation: Performing Lab:[address] [address] Notes/Report: RIGHT SHOULDER PER R/O C.ACNES RT SHOULDER Gram stain Gram stain results: Gram stain 4+ polys Gram stain 4+ red blood cells Gram stain No organisms seen Routine Culture Reviewed date:06/20/2025 03:38:27 PM Interpretation: Performing Lab:[facility], [address] [place] [phone] Notes/Report: RIGHT SHOULDER PER R/O C.ACNEVani RT SHOULDER Routine Culture No growth after 2 days Anaerobic Culture Reviewed date:06/20/2025 03:38:01 PM Interpretation: Performing Lab:[facility], [address] [place] [phone] Notes/Report: RIGHT SHOULDER PER R/O C.ACNEVani RT SHOULDER O:CUTIAC Cutibacterium acnes Anaerobic Culture B-Lac Susc (reported) Anaerobic Culture Beta-lactamase not produced; suggests PEN/AMP susceptibility Anaerobic Culture Quant Org ID Anaerobic Culture 1+ Liver Panel Reviewed date:06/27/2025 04:46:56 PM Interpretation: Performing Lab:[facility], [address] [place] [phone] Notes/Report: Bilirubin Total 0.2 0.0-1.0 mg/dL Bilirubin Direct < 0.2 0.0-0.5 mg/dL Aspartate Amino Transferase 26 5-37 U/L Alanine Aminotransferase 30 0-40 U/L Total Protein 7.4 6.5-8.0 g/dL Albumin Level 4.0 3.5-5.0 g/dL Alkaline Phosphatase 108 39-117 U/L PSA Free and Total Reviewed date:07/08/2025 05:47:31 PM Interpretation: Performing Lab:[address] [address] Notes/Report: Prostate Specific Ag Total 6.3 < [...] 30 93 9 (3)Catalona et al.:MICHI 277: 2427-2356 (1996) (4)Catalona et al.:MICHI 279: 2913-6679 (1997) (x)These estimates vary with age, ethnicity, [...] mind. PSA was performed using the Zulema Brandon Immunoassay method. Values obtained from different assay methods cannot be used interchangeably. PSA levels, regardless of value, should not be interpreted as absolute evidence of the presence or absence of disease. THIS TEST WAS PERFORMED AT: [facility] [address] [place] [phone] CLAUS SEALS MD Free Prostate Spec Ag 1.4 Liver Panel Reviewed date:07/21/2025 05:01:28 PM Interpretation: Performing Lab:[address] [address] Notes/Report: Bilirubin Total 0.5 0.0-1.0 mg/dL Bilirubin Direct 0.2 0.0-0.5 mg/dL Aspartate Amino Transferase 31 5-37 U/L Alanine Aminotransferase 42 0-40 U/L Total Protein 6.5 6.5-8.0 g/dL Albumin Level 3.9 3.5-5.0 g/dL Alkaline Phosphatase 107 39-117 U/L Complete Blood Count Auto Di ff (Not yet reviewed by provider) Interpretation:left message Performing Lab:[address] [address] Notes/Report: White Blood Count 8.0 4.8-10.8 X10*3/uL [...] te Reviewed date:07/29/2025 04:27:40 PM Interpretation: Performing Lab:[facility], [address] [place] [phone] Notes/Report: Erythrocyte Sedimentation Rate 15 1-20 MM/HR Patients with polycythemia and many hemoglobin abnormalities may have depressed sed rates whereas patients with anemia may have elevated sed rates. Comprehensive Met. Panel Reviewed date:07/29/2025 04:26:17 PM Interpretation: Performing Lab:[facility], [address] [place] [phone] Notes/Report: Sodium 138 135-145 mmol/L Potassium 4.1 [...] Protein Reviewed date:07/29/2025 04:27:57 PM Interpretation: Performing Lab:[facility], [address] [place] [phone] Notes/Report: C Reactive Protein 1.19 < or = 0.50 mg/dL Complete Blood Count Auto Di ff Reviewed date:07/30/2025 06:15:40 PM Interpretation: Performing Lab:[facility], [address] [place] [phone] Notes/Report: White Blood Count 6.9 4.8-10.8 X10*3/uL [...] INR Reviewed date:07/30/2025 06:14:59 PM Interpretation: Performing Lab:[address] [address] Notes/Report: Prothrombin Time 20.4 11.2-13.5 SEC INTERNATIONAL [...] Time Reviewed date:07/30/2025 06:14:46 PM Interpretation: Performing Lab:[facility], [address] [place] [phone] Notes/Report: Partial Thromboplastin Time 40.8 26.7-34.1 SEC Comprehensive Met. Panel Reviewed date:07/30/2025 06:14:23 PM Interpretation: Performing Lab:[address] [address] Notes/Report: Sodium 137 135-145 mmol/L Potassium 4.3 [...] Screen Reviewed date:07/31/2025 04:29:07 PM Interpretation: Performing Lab:[facility], [address] [place] [phone] Notes/Report: Results at Issue Units as of 07/30/252055 ... Test View Group: Most Recent HGB HCT Results LABORATORY Date Time Test Result Flag Normal Range 07/30/25 1735 HGB 7.8 L 14.0-18.0 g/dl 07/30/25 1735 HCT 23.3 L 42.0-52.0 % Hgb 7-9 gm No Blood Type AP Antibody Screen NEGATIVE UA ClnCatch+Micro w/rflx Cul t Reviewed date:07/31/2025 04:28:14 PM Interpretation: Performing Lab:[facility], [address] [place] [address] Notes/Report: [id number] Urine, Clean Catch Color Urine Yellow Appearance Urine Clear PH 5.5 5.0-9.0 Glucose Urine UA Negative Negative mg/dL Urine Blood Negative Negative Specific [place] - Urine 1.025 1.005-1.025 Urine Protein Negative Neg-Trace mg/dL Urine Ketones Negative Negative mg/dL Nitrite Urine Negative Negative Leukocyte Esterase Urine Negative Negative RBC Urine 0-2 0-2 /HPF WBC Urine 0-5 0-5 /HPF Squamous Epithelial Cell Urine 0-2 0-2 /HPF Bacteria Urine None Seen None Seen Hyaline Casts Urine 0-2 0-2 /LPF Red Blood Cells Reviewed date:07/31/2025 04:28:36 PM Interpretation: Performing Lab:[facility], [address] [place] [phone] Notes/Report: Red Blood Cells [id number] AP RC Red Blood Cells TRANSFUSED 07/30/252054 US Extremity Nonvas Limited RT Reviewed date:07/31/2025 04:27:54 PM Interpretation: Performing Lab: Notes/Report: [address] [address] Ultrasound Report Signed Patient: Joselito Hurd Sr MR#: [id number] : 1950 Acct:[id number] Age/Sex: 75 / M ADM Date: 07/30/25 Loc: HO.ED Attending Dr: Ordering Physician: Radha Bhatia Date of Service: 07/30/25 Procedure(s): US Extremity Nonvas Limited RT Accession Number(s): [id number] cc: Richard Castro MD; Radha Bhatia Reason for Exam: Soft tissue swelling R anterior shoulder, r/o abscess CLINICAL HISTORY: Soft tissue swelling R anterior shoulder, r o abscess --- Additional Notes or Special Instructions: visualization of fluid collection. US soft tissues of the right shoulder Comparison: US - US EXTREMITY NONVAS LIMITED RT - 07/30/25 20:[address]/NV/SR - CT SHOULDER RT WO IV CON [...] in OV> 07/30/252128 DD/ 26 TD/TT: 07/30/252126 [employer]: [place] [address] Ultrasound Report Signed Patient: Flavia Hurd Sr MR#: [id number] : 1950 Acct:[id number] Age/Sex: 75 / M ADM Date: 07/30/25 Loc: .ED Attending Dr: [facility] Date of Service: 07/30/25 Procedure(s): US Ext remity Nonvas Limited RT Accession Number(s): [id number] cc: Richard Castro MD; [facility] Reason for Exam: Sof t tissue swelling R anterior shoulder, r/o abscess CLINICAL HISTORY: So ft tissue swelling R anterior shoulder, r o abscess --- Additional Notes or Special Instructions : visualization of fluid collection. US soft tissues of t he right shoulder Comparison: US - US EXTREMITY NONVAS LIMITED RT - 07/30/25 20:[address]/NV/SR - CT SHOULD ER RT WO IV [...] in OV> 07/30/252128 DD/ 26 TD/TT: 07/30/252126 [employer]: Reason For Referral Reason HEMATURIA NEEDS A [...] Status W/U Status Risk Notes Problem Anemia (215741361) Anemia (D64.9) Active confir med Problem 451877769 Neuropathy (G62.9) Active confirmed Problem 15712915 Prostatism (N40.0) Active confirmed Problem 849018802 Paroxysmal atria l fibrillation (I48.0) Active confirmed Problem 226192767 Essential tremor (G25.0) Active confirmed Problem 238988942333482 Erectile dysfunc tion due to arterial insufficiency (N52.01) Active confirmed Problem 73098060 Mitral valve dis order (I05.9) Active confirmed Problem Pure hypercholesterolemia (015892601) Elevated LDL cholesterol level (E78.0) Active confirmed Problem 944220149 Non-rheumatic mi tral regurgitation (I34.0) Active confirmed Problem 924998762 Pure hypercholesterolemia (E78.00) Active confirmed Problem 217497465 Elevated PSA (R97.20) Active confirme d Problem 009238890 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 confirmed Problem 45722042 Hydronephrosis 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) Active confirmed Problem Melanoma of skin (48998205) Melanoma of skin (C43.9) Active confirmed Problem 518325515 Elevated serum cholesterol (E78.9) Active confirmed Problem Anemia (208871211) Acute anemia (D64.9) Active confirmed Problem 983217564 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 Vital Signs Blood pressure diastolic 60 mm Hg 07/30/2025 Height 70.50 in 07/30/2025 Blood pressure systolic 98 mm Hg 07/30/2025 Weight 200 lbs 07/30/2025 BMI 28.29 kg/m2 07/30/2025 Encounters Encounter Location Date Provider Diagnosis Richard Castro MD [address] [place] [id number] 07/05/2025 Richard Castro Elevated PSA R97.20 ; Encounter for administration of vaccine Z23 and Pure hypercholesterolemia E78.00 Richard Castro MD [address] [place] [id number] 07/30/2025 Richadr Castro Acute anemia D64.9 ; Paroxysmal atrial fibrillation I48.0 ; 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 C85.88 and Hematuria R31.9 Richard Castro MD [address] [place] [id number] 08/02/2025 Richard Castro Anemia D64.9 Richard Castro MD [address] [place] [id number] 08/05/2025 Richard Castro Anemia D64.9 Richard Castro MD [address] [place] [id number] 12/24/2024 Richard Castro Mass in neck R22.1 ; Right shoulder pain, unspecified chronicity M25.511 and Preop examination Z01.818 Richard Castro MD [address] [place] [id number] 07/18/2025 Richard Castro Hematuria R31.9 ; El evated PSA R97.20 ; Colon cancer screening Z12.11 ; Paroxysmal atrial fibrillation I48.0 ; Melanoma of skin C43.9 ; Pure hypercholesterolemia E78.00 and Depression screening Z13.31 Richard Castro MD [address] [place] [id number] 08/02/2025 Richard Castro MD [address] [place] [id number] 01/15/2025 Richard Castro MD [address] [id number] 02/28/2025 Richard Castro MD [address] [id number] 08/01/2025 Richard Castro Assessments Encounter Date Diagnosis [...] at present 08/02/2025 Anemia (ICD-10 - D64.9) 08/05/2025 Anemia (ICD-10 - D64.9) 12/24/2024 Mass in neck (ICD-10 - R22.1) THE ORDER WAS FAXED TO [facility], pending diagnsotic testing 12/24/2024 Right shoulder [...] his shoulder surgery if cleared by his helper electrical 07/18/2025 Colon cancer screeni ng (ICD-10 - [...] of skin (ICD-10 - C43.9) going [place] [facility] to have idt removed some more 07/18/2025 Pure hypercholesterolemia (ICD-10 - E78.00) 07/18/2025 Depression screening (ICD-10 - Z13.31) Plan Of Treatment Pending Test Test Name Order Date US RENAL BILATERAL 07/17/2020 US RENAL BILATERAL 07/24/2020 Complete Blood Count Auto Diff 5 Complete Blood Count Auto Diff 5 US soft tiss head and/or neck 12/24/2024 Future Test Test Name Order Date US RENAL BILATERAL 07/29/2021 Next Appt Details Provider Name:Richard escamilla, 08/26/2025 01:45:00 PM, [address] [facility], [address], [place], [place], [phone], Provider Name:Richard Chatman ier, 07/07/2026 07:15:00 AM, [address] [facility] [address], [address], [place], [place], [phone], Provider Name:Richard Chatman ier, 07/18/2026 01:00:00 PM, [address] [facility] [address], [address], [place], [place], [phone], Insurance Providers Payer Name Payer Address Payer Phone Subscriber Number Group Number Insured Name Patient Relationship to Insured Coverage Start Date Coverage End Date MEDICARE NHIC [address] [place] [address] [id number] Joselito Hurd Self - patient is the insured MEDEX BCBS OF [facility] [address] [place] [address] [id number] Joselito Hurd Self - patient is the [...]
--- OUTSIDE RECORDS SUMMARY | 2025-08-05 10:52 | XMS_ITS | Encounter Summary ---
Author Organization [facility] Address [address] [address] [place] [address] Phone Care Team Providers Care Cloth Handler Name Role Phone Richard Castro MD Primary Care Provider Encounter Details Date Type Department Care Team (Late Contact Info) Description 08/26/2022 Procedure [facility] [address] [place] [address] Social History Tobacco Use Types Packs/Day Years [...] 09/13/2025 10:00 AM EST Office Visit [facility] [address], [address] [place] [address] Roxy Burnette DNP [address] [facility], [address] [address] [email or web address] documented as of this encounter Visit Diagnoses Not on filedocumented in this encounter Care Teams Cloth Handler Relationship Specialty Start Date End Date Richard Castro MD [address] [place] [address] [place] [address] PCP - General 06/02/17 documented as of this encounter Additional Source Comments The information contained in this document represents components of the legal health record. It is not the complete legal health record.[facility]
--- OUTSIDE RECORDS SUMMARY | 2025-08-05 10:52 | XMS_ITS | Patient Health Record ---
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 Problems Problem Type SNOMED Code ICD Code Onset Dates Problem Status W/U Status Risk Notes Problem Hemorrhoids (42865182) Hemorrhoids (455.6) Active confirmed Problem Colon cancer screening (608398231) Colon cancer screening (V76.51) Active confirmed Problem Feces contents abnormal (769114847) Abnormal findings in stool (792.1) Active confirmed Plan Of Treatment Future Test Test Name Order Date COLONOSCOPY 07/26/2014 Insurance Providers Payer Name Payer Address Payer Phone Subscriber Number Group Number Insured Name Patient Relationship to Insured Coverage Start Date Coverage End Date [facility] [address] [address] [place] [address] [id number] ROOSEVELT SAMUELS Self - patient is the insured [place] [address] [facility] [place] [id number] ROOSEVELT SAMUELS Self - patient is the insured Medical (General) History Medical History History ICD Code lymphoma Atrial fibrillation mitral valve prolapse Surgical History Surgery Date(Month/Year) lymphectomy 1 node under arm 2010
--- OUTSIDE RECORDS SUMMARY | 2025-08-05 10:53 | XMS_ITS | Encounter Summary ---
Author Organization [facility] Address [address] [place] [id number] Phone Care Team Providers Care Tight Rope Walker Name Role Phone Richard Castro MD Primary Care Provider Encounter Details Date Type Department Care Team (Late st Contact Info) Description 12/12/2020 Procedure Pass [facility]le[facility] [address] [place] [address] Social History Tobacco Use Types Packs/Day Years [...] 10:00 AM EST Office Visit Felecia Sanz [facility] [address] [facility] [address] [facility] [address], [address] [place], [place] [id number] Roxy Burnette DNP [address] [facility] [facility] [address] [place] [address] [email or web address] documented as of this encounter Visit Diagnoses Not on filedocumented in this encounter Care Teams Tight Rope Walker Relationship Specialty Start Date End Date Richard Castro MD [address] [place] [address] [place] [address] PCP - General 06/02/17 documented as of this encounter Additional Source Comments The information contained in this document represents components of the legal health record. It is not the complete legal health record.[facility]
== END 2025-08-05 11:07 | disposition home or self-care (01) ==
LOC: HO.HOS 09:31
PROVIDERS: PCP Internal Medicine; Visit Provider Orthopaedic Surgery
DX: T84.59XA Infection and inflammatory reaction due to other internal joint prosthesis, initial encounter (principal); Z96.611 Presence of right artificial shoulder joint
CPT/HCPCS: 99024

== ENCOUNTER 2025-08-05 09:31 | Outpatient (REF) | payer MEDICARE, SELFPAY ==
[2025-08-05 11:22] LABS: MANUAL DIFF FLAG NO
[2025-08-05 11:53] LABS: Hematocrit 24.4 % (42.0-52.0); Hemoglobin 8.1 g/dl (14.0-18.0); Imm Gran Abs Auto 0.02 X10*3/uL (0.00-0.03); Imm Gran Pct Auto 0.3 % (0.0-0.4); Lymphocytes Absolute Auto 1.5 X10*3/uL (1.2-4.9); Mean Corpuscular HGB Conc 33.2 g/dl (31.0-36.0); Mean Corpuscular Hemoglobin 30.7 pg (27.0-33.0); Mean Corpuscular Volume 92.4 fL (80.0-98.0); NRBC Abs Auto 0.000 X10*3/uL (0.0-0.012); NRBC Pct Auto 0.0 /100WBC (0.0-0.2); Platelet Count 246 X10*3/uL (160-400); Red Blood Count 2.64 X10*6/uL (4.60-5.80); White Blood Count 6.7 X10*3/uL (4.8-10.8)
== END 2025-08-05 09:32 | disposition home or self-care (01) ==
LOC: HO.LNP 09:31
PROVIDERS: PCP Internal Medicine; Visit Provider Orthopaedic Surgery
DX: T84.59XA Infection and inflammatory reaction due to other internal joint prosthesis, initial encounter (principal); D64.9 Anemia, unspecified; Z96.611 Presence of right artificial shoulder joint
CPT/HCPCS: 85025; 99212

== ENCOUNTER 2025-08-06 09:19 | Day surgery (SDC) | payer MEDICARE, SELFPAY ==
--- OUTSIDE RECORDS SUMMARY | 2025-08-02 23:59 | XMS_ITS | Continuity of Care Document ---
Author Organization [facility] Address [address] [facility] [address] [place] [address]- Care Team Providers Care Frozen Foods Manager Name Role Phone Gloria MCDANIELS, Richard Primary Care Physician [phone] Encounter 07/26/25 - 08/02/25 [facility] [address] [facility], [address] [place] [address]- Attending Physician: Nikolay Martin Admitting Physician: Nikolay Martin Referring Physician: Nikolay Martin Encounter Type: OutPatient One Time Allergies, Adverse Reactions, Alerts No Known Allergies Immunizations Given and Recorded Vaccine Date Status Refusal Reason SARS-CoV-2 (COVID-19) mRNA BNT-162b2 vac 11/12/20 Given SARS-CoV-2 (COVID-19) mRNA BNT-162b2 vac 10/22/20 Given Medications Cartia XT 120 mg/24 hours oral capsule, extended release 1 capsule = 120 mg, By Mouth, Daily, # 30 capsule, 2 Refills, Maintenance, 09/12/14 3:37:11 PM EST, CR Capsule, [facility] Start Date: 09/12/14 Stop Date: 09/07/15 Status: Ordered Medication Dispense Status: Completed Quantity: 30.0 Unit: capsule Total Allowed Fills: 3 Fills Dispensed: 0 Coenzyme Q10 By Mouth, 0 Refills, Maintenance, 02/24/12 3:39:27 PM EDT Start Date: 02/24/12 Status: Ordered Medication Dispense Status: Completed Total Allowed Fills: 1 Fills Dispensed: 0 flecainide 50 mg oral tablet 1 tablet = 50 mg, By Mouth, Every 12 hours, # 60 tablet, 2 Refills, Maintenance, 09/12/14 3:38:05 PMEST, Tablet, [facility] Start Date: 09/12/14 Status: Ordered Medication Dispense Status: Completed Quantity: 60.0 Unit: tablet Total Allowed Fills: 3 Fills Dispensed: 0 propranolol 80 mg oral capsule, extended release 80 mg, 1, capsule, By Mouth, Daily, PRN, Takes for benign upper extremity tremors, Refills 0, Maintenance, Other, 05/02/18 4:04:35 PM EDT Start Date: 05/02/18 Status: Ordered Medication Dispense Status: Completed Total Allowed Fills: 1 Fills Dispensed: 0 Vitamin D3 2000 intl units oral capsule 1 capsule = 50 mcg, By Mouth, Daily, 0 Refills, Maintenance, 07/21/21 9:30:00 AM EST, Partial fill upon patient request if the prescription is for a schedule II opioid drug. Start Date: 07/21/21 Status: Ordered Medication Dispense Status: Completed Total Allowed Fills: 1 Fills Dispensed: 0 Problem List Condition Confirmation Course Effective Dates Status Health atus Informant Atrial Fibrillation Confirmed 08/05/11 Active H/O Malignant melanoma Confirmed Active Lymphoma Confirmed Active Results Radiology Reports * Exam Date Time Procedure Performing Provider Status 07/25/25 2:[address] Abd/Pelvis W/O + W/ IV Contrast Auth (Verified) Notes: (CT Abd/Pelvis W/O + W/ IV Contrast) Reason For Exam: Hematuria RESULT: CT Abd/Pelvis W/O + W/ IV Contrast CT Abd/Pelvis W/O + W/ IV Contrast [facility] [address] [place] [address], [phone]. INDICATION: Recurrent painless gross hematuria. History of an enlarged prostate and nephrolithiasis. TECHNIQUE: Spiral CT through the abdomen and pelvis with and without IV contrast, formatted in 3 planes. Urogram protocol was used with a 10 minute delayed sequence obtained for ureteral evaluation. 100 cc of Isovue 300 100cc vials was administered intravenously. This study was performed without oral contrast. Weight-based protocol using automatic tube modulation was used to optimize exposure parameters. COMPARISON: PET/CT 03/09/2012. FINDINGS: Visualized Chest: Lung hyperexpanded and clear. The heart is upper limits normal in size. There are no effusions.. Liver: Small cyst in the left lobe measuring up to 1.5 cm in size. A second subcentimeter hypodensity too small to characterize also likely a cyst in the left lobe aswell. Gallbladder: No CT evidence of gallbladder pathology. Bile ducts: No biliary ductal dilation. Spleen: Normal. Pancreas: Normal. Adrenal glands: Normal. Kidneys and ureters: No evidence of urolithiasis or hydroureteronephrosis. Simple appearing 1.6 cm cyst interpolar right kidney with an adjacent 1 cm hypodense lesion also likely a cyst. Other subcentimeter hypodensities that are too small to characterize also likely cysts, requiring no dedicated follow up. Distal right ureter is unopacified, otherwise the collecting systems and ureters are well-opacifiedwithout focal abnormalities. Bladder: Under distended however appears diffusely thickened Reproductive organs: Moderately to markedly enlarged heterogeneous prostate gland. Stomach, small bowel, and large bowel: No evidence of obstruction or inflammation. Appendix: Not identified, no secondary signs of an acute appendicitis. Peritoneum and retroperitoneum: No ascites or pneumoperitoneum. No omental or mesenteric lesions. Lymph nodes: No enlarged lymph nodes. Blood vessels: Moderate atherosclerotic vascular calcification. No aortic aneurysm. No evidence of venous thrombosis. Abdominal and pelvic wall: Small fat-containing umbilical hernia. Bones: No acute abnormalities, no suspicious osseous lesions. There are moderate degenerative changes in the spine. IMPRESSION: 1. Diffusely thickened heterogeneous urinary bladder. 2. Prostate is moderately to markedly enlarged and heterogeneously enhancing. 3. Small right renal cyst and probable smaller bilateral renal cysts. 4. Other chronic findings as noted. WSN: [id number] Ordering Physician: Nikolay Marcano Dictated By: Caden Kramer MD Dictated Date/Time: 07/29/25 3:23 pm Reviewed By: Caden Kramer MD Signed By: Caden Kramer MD Signed Date/Time: 07/29/25 3:23 pm Transcribed By: JACINTA Transcribed Date/Time: 07/29/25 1:22 pm Social History Social History Type Response Smoking Status Former smoker entered on: 10/21/14 Sex Sex Representation Male (finding) Patient Care team information Care Team Personnel Name: Richard Castro MD Position: Reference Physician Member Role: PCP Address: [address] [place] [address] Richard Castro MD [place], [place] [address] Telecom: [phone] Care Team Related Persons Name: MONIQUE SAMUELS Insurance Providers Guarantor name: ROOSEVELT SAMUELS Health Plan Information #: 1 Payer: MEDICARE B Payer Identifier: JENNY Member Number: [id number] Group Number: JENNY Subscriber Identifier: [id number] Relationship to Subscriber: self Coverage Type: NA Coverage Verification Date: NA Telecom: NA Address: NA Health Plan Information #: 2 Payer: MEDEX SECONDARY ONLY Payer Identifier: JENNY Member Number: [id number] Group Number: [id number] Subscriber Identifier: [id number] Relationship to Subscriber: self Coverage Type: Medicare Other Coverage Verification Date: NA Telecom: NA Address: NA
[2025-08-06 09:30] VITALS: BP 107/67; PULSE 72; RESP 16; TEMP 36.6; O2SAT 99; BMI 27.2
--- NOTE | 2025-08-06 10:42 | PC.NURSE ---
md at bedside and no iv or iv antibiotic needed
--- NOTE | 2025-08-06 11:17 | P.BOP_ITS ---
Brief Operative Note Date of Service: 08/06/25 Pre-op diagnosis: abcess, right shoulder Post-op diagnosis: same Procedure: Right shoulder incision and drainage Implants: none Surgeon: Clint Thomas MD Anesthesia: local Was an Supply Chain Assistant used for this Procedure?: No Estimated blood loss (mL): 5 Pathology: none sent Condition: stable Disposition: PACU
[2025-08-06 11:20] VITALS: BP 104/61; PULSE 62; RESP 16; TEMP 36.7; O2SAT 98
--- NOTE | 2025-08-06 13:33 | W.PM.OPN ---
Operative Note Operative Note Date of Service: 08/06/25 Narrative: Date of Service: 08/06/25 Pre-op diagnosis: abcess, right shoulder Post-op diagnosis: same Procedure: Right shoulder incision and drainage Implants: none Surgeon: Clint Thomas MD Anesthesia: local Was an Document Restorer used for this Procedure?: No Estimated blood loss (mL): 5 Pathology: none sent Condition: stable Disposition: PACU Procedure in detail: Patient was brought to the operating room placed supine on the operative table and prepped and draped in standard sterile fashion. A time-out was called to identify proper site proper procedure proper surgeon. I began by infiltrating the in incision site with 15 mL of 0.25% Marcaine. I then made a 1 cm sunni incision over the area of fluctuance. A hemostat was used to open up the subcutaneous tissues and I expressed serous fluid with fat globules. This was not malodorous . I expressed fluid until the area was normal in appearance and size. Approximately 10 mL of serous appearing fluid was expressed. I then packed the wound with quarter-inch iodoform gauze. Sterile dressings were applied and patient was brought to recovery room in stable condition there were no known complications.
== END 2025-08-06 11:35 | disposition home or self-care (01) ==
PROVIDERS: PCP Internal Medicine; Visit Provider Orthopaedic Surgery
PROC: (CPT 10060; principal; 2025-08-06 10:30)
DX: T84.59XA Infection and inflammatory reaction due to other internal joint prosthesis, initial encounter (principal); M71.011 Abscess of bursa, right shoulder; Z96.611 Presence of right artificial shoulder joint; M25.511 Pain in right shoulder; Z98.890 Other specified postprocedural states; I48.91 Unspecified atrial fibrillation; C85.90 Non-Hodgkin lymphoma, unspecified, unspecified site; Z92.21 Personal history of antineoplastic chemotherapy; Z86.14 Personal history of Methicillin resistant Staphylococcus aureus infection; H91.93 Unspecified hearing loss, bilateral; R25.1 Tremor, unspecified; Z87.442 Personal history of urinary calculi; Z79.01 Long term (current) use of anticoagulants; Z87.891 Personal history of nicotine dependence
CPT/HCPCS: 10060; J2003; J2795

== ENCOUNTER → 2025-08-06 09:19 | Outpatient (BNV) | payer MEDICARE, SELFPAY | PROVIDERS: PCP Internal Medicine; Visit Provider Orthopaedic Surgery | DX: M71.011 Abscess of bursa, right shoulder (principal); Z96.611 Presence of right artificial shoulder joint | CPT/HCPCS: 10061 ==